=== PATIENT | male | born 1950 | race Caucasian/White ===

== ENCOUNTER 2020-04-30 16:33 | Emergency (ER) | payer MEDICARE, OTHER ==
[~2020-04-30] VITALS: Ht 182.9 cm; Wt 87.5 kg
--- OUTSIDE RECORDS SUMMARY | ~2020-04-30 | XMS | Encounter Summary ---
Demographics + + + | Address | [address] | | | [place] [address] | + + + | Home Phone | | + + + | Preferred Language | Unknown | + + + | Marital Status | | + + + | Tenriism Affiliation | 1013 | + + + | Race | Unknown | + + + | Ethnic Group | Unknown | + + + Author + + + | Author | [facility] | | | and [place] | + + + | Organization | [facility] | | | and [place] | + + + | Address | Unknown | + + + | Phone | Unavailable | + + + Support + + +---------+ + | Name | Relationship | Address | Phone | + + +---------+ + | Jaycee Roman | ECON | Unknown | | + + +---------+ + Care Team Providers + +------+ + | Care Plant And Instrument Engineer Name | Role | Phone | + +------+ + PCP | Unavailable | + +------+ + Encounter Details +--------+ + + + + | Date | Type | Department | Care Team | Description | +--------+ + + + + | 05/05/ | Abstract | [facility] | Juan Paris | | | 2014 | | NEPHROLOGY [address] | M, DO [address] | | | | | [address] | [address] | | | | | [place] | [place] [id number] | | | | | [address] | [phone] | | | | | [phone] | | | +--------+ + + + + Social History + +-------+ +--------+------+ | Tobacco Use | Types | Packs/Day | Years | Date | | | | | Used | | + +-------+ +--------+------+ | Current Every Day | | 0.2 | 41 | | | Smoker | | | | | + +-------+ +--------+------+ + +---+---+---+ | Smokeless Tobacco: | | | | | Current User | | | | + +---+---+---+ + + | Comments: 1-3 daily, use to smoke 1ppd | + + + + +---------+ + | Alcohol Use | Drinks/Week | oz/Week | Comments | + + +---------+ + | Not Asked | | | | + + +---------+ + + + + | Sex Assigned at | Date Recorded | | | | + + + | Not on file | | + + + documented as of this encounter Plan of Treatment +--------+ + + + + | Date | Type | Specialty | Care Team | Description | +--------+ + + + + | 05/24/ | Off-Site | Nephrology | Juan Paris | | | 2019 | Visit | | DO Nisreen [address] | | | | | | [address] | | | | | | [place] [address] | | | | | | [phone] | | | | | | | | +--------+ + + + + | 07/23/ | Office | Pulmonology | Jt Roman | | | 2019 | Visit | | Tony Edwards MD [address] | | | | | [address] | | | | | | [place] [address] | | | | | | [phone] | | | | | | | | +--------+ + + + + documented as of this encounter Procedures + +--------+ + + + | Procedure Name | Priori | Date/Time | Associated Diagnosis | Comments | | | ty | | | | + +--------+ + + + | EXTERNAL LAB: BUN | Routin | 04/29/2015 | | Results for this | | | e | | | procedure are in the | | | | | | results section. | + +--------+ + + + | EXTERNAL LAB: | Routin | 04/29/2015 | | Results for this | | GLUCOSE | e | | | procedure are in the | | | | | | results section. | + +--------+ + + + | EXTERNAL LAB: ALT | Routin | 04/29/2015 | | Results for this | | | e | | | procedure are in the | | | | | | results section. | + +--------+ + + + | EXTERNAL LAB: AST | Routin | 04/29/2015 | | Results for this | | | e | | | procedure are in the | | | | | | results section. | + +--------+ + + + | EXTERNAL LAB: | Routin | 04/29/2015 | | Results for this | | ALKALINE PHOSPHATASE | e | | | procedure are in the | | | | | | results section. | + +--------+ + + + | EXTERNAL LAB: | Routin | 04/29/2015 | | Results for this | | BILIRUBIN, TOTAL | e | | | procedure are in the | | | | | | results section. | + +--------+ + + + | EXTERNAL LAB: | Routin | 04/29/2015 | | Results for this | | ALBUMIN | e | | | procedure are in the | | | | | | results section. | + +--------+ + + + | EXTERNAL LAB: | Routin | 04/29/2015 | | Results for this | | PROTEIN, TOTAL | e | | | procedure are in the | | | | | | results section. | + +--------+ + + + | EXTERNAL LAB: | Routin | 04/29/2015 | | Results for this | | PHOSPHORUS | e | | | procedure are in the | | | | | | results section. | + +--------+ + + + | EXTERNAL LAB: | Routin | 04/29/2015 | | Results for this | | CALCIUM | e | | | procedure are in the | | | | | | results section. | + +--------+ + + + | EXTERNAL LAB: CARBON | Routin | 04/29/2015 | | Results for this | | DIOXIDE | e | | | procedure are in the | | | | | | results section. | + +--------+ + + + | EXTERNAL LAB: | Routin | 04/29/2015 | | Results for this | | CHLORIDE | e | | | procedure are in the | | | | | | results section. | + +--------+ + + + | EXTERNAL LAB: | Routin | 04/29/2015 | | Results for this | | POTASSIUM | e | | | procedure are in the | | | | | | results section. | + +--------+ + + + | EXTERNAL LAB: SODIUM | Routin | 04/29/2015 | | Results for this | | | e | | | procedure are in the | | | | | | results section. | + +--------+ + + + | EXTERNAL LAB: | Routin | 04/29/2015 | | Results for this | | PROTEIN, URINE, 24HR | e | | | procedure are in the | | | | | | results section. | + +--------+ + + + | EXTERNAL LAB: CBC | Routin | 04/29/2015 | | Results for this | | | e | | | procedure are in the | | | | | | results section. | + +--------+ + + + | EXTERNAL LAB: | Routin | 04/29/2015 | | Results for this | | TRIGLYCERIDES | e | | | procedure are in the | | | | | | results section. | + +--------+ + + + | EXTERNAL LAB: | Routin | 04/29/2015 | | Results for this | | CHOLESTEROL, HDL | e | | | procedure are in the | | | | | | results section. | + +--------+ + + + | EXTERNAL LAB: | Routin | 04/29/2015 | | Results for this | | CHOLESTEROL, TOTAL | e | | | procedure are in the | | | | | | results section. | + +--------+ + + + | EXTERNAL LAB: | Routin | 04/29/2015 | | Results for this | | CHOLESTEROL, LDL | e | | | procedure are in the | | | | | | results section. | + +--------+ + + + | EXTERNAL LAB: EGFR | Routin | 04/29/2015 | | Results for this | | | e | | | procedure are in the | | | | | | results section. | + +--------+ + + + | EXTERNAL LAB: | Routin | 04/29/2015 | | Results for this | | CREATININE | e | | | procedure are in the | | | | | | results section. | + +--------+ + + + documented in this encounter Results External Lab: BRENDA (04/29/2015) + +-------+ + + + | Component | Value | Ref Range | Performed | Pathologist | | | | | At | Signature | + +-------+ + + + | BUN, | 19 | 6 - 23 | EXTERNAL | | | External | | | LAB | | + +-------+ + + + + + | Resulting Agency Comment | + + | [facility] | + + + +---------+ + + | Performing | Address | City/State/Zipcode | Phone Number | | Organization | | | | + +---------+ + + | EXTERNAL LAB | | | | + +---------+ + + External Lab: Glucose (04/29/2015) + +---------+ + + + | Component | Value | Ref Range | Performed | Pathologist | | | | | At | Signature | + +---------+ + + + | Glucose, | 117 (A) | 70 - 100 | EXTERNAL | | | External | | | LAB | | + +---------+ + + + + + | Resulting Agency Comment | + + | [facility] | + + + +---------+ + + | Performing | Address | City/State/Zipcode | Phone Number | | Organization | | | | + +---------+ + + | EXTERNAL LAB | | | | + +---------+ + + External Lab: ALT (04/29/2015) + +-------+ + + + | Component | Value | Ref Range | Performed | Pathologist | | | | | At | Signature | + +-------+ + + + | ALT, | 12 | 7 - 52 | EXTERNAL | | | External | | | LAB | | + +-------+ + + + + + | Resulting Agency Comment | + + | [facility] | + + + +---------+ + + | Performing | Address | City/State/Zipcode | Phone Number | | Organization | | | | + +---------+ + + | EXTERNAL LAB | | | | + +---------+ + + External Lab: AST (04/29/2015) + +--------+ + + + | Component | Value | Ref Range | Performed | Pathologist | | | | | At | Signature | + +--------+ + + + | KRIS, | 11 (A) | 13 - 39 | EXTERNAL | | | External | | | LAB | | + +--------+ + + + + + | Resulting Agency Comment | + + | [facility] | + + + +---------+ + + | Performing | Address | City/State/Zipcode | Phone Number | | Organization | | | | + +---------+ + + | EXTERNAL LAB | | | | + +---------+ + + External Lab: Alkaline Phosphatase (04/29/2015) + +-------+ + + + | Component | Value | Ref Range | Performed | Pathologist | | | | | At | Signature | + +-------+ + + + | ALP, | 81 | 30 - 128 | EXTERNAL | | | External | | | LAB | | + +-------+ + + + + + | Resulting Agency Comment | + + | [facility] | + + + +---------+ + + | Performing | Address | City/State/Zipcode | Phone Number | | Organization | | | | + +---------+ + + | EXTERNAL LAB | | | | + +---------+ + + External Lab: Bilirubin, Total (04/29/2015) + +-------+ + + + | Component | Value | Ref Range | Performed | Pathologist | | | | | At | Signature | + +-------+ + + + | Bilirubin, | 0.7 | 0 - 1.2 | EXTERNAL | | | Total, | | | LAB | | | External | | | | | + +-------+ + + + + + | Resulting Agency Comment | + + | [facility] | + + + +---------+ + + | Performing | Address | City/State/Zipcode | Phone Number | | Organization | | | | + +---------+ + + | EXTERNAL LAB | | | | + +---------+ + + External Lab: Albumin (04/29/2015) + +-------+ + + + | Component | Value | Ref Range | Performed | Pathologist | | | | | At | Signature | + +-------+ + + + | Albumin, | 3.7 | 3.5 - 5 | EXTERNAL | | | External | | | LAB | | + +-------+ + + + + + | Resulting Agency Comment | + + | [facility] | + + + +---------+ + + | Performing | Address | City/State/Zipcode | Phone Number | | Organization | | | | + +---------+ + + | EXTERNAL LAB | | | | + +---------+ + + External Lab: Protein, Total (04/29/2015) + +---------+ + + + | Component | Value | Ref Range | Performed | Pathologist | | | | | At | Signature | + +---------+ + + + | Protein, | 5.5 (A) | 6 - 8 | EXTERNAL | | | Total, | | | LAB | | | External | | | | | + +---------+ + + + + + | Resulting Agency Comment | + + | [facility] | + + + +---------+ + + | Performing | Address | City/State/Zipcode | Phone Number | | Organization | | | | + +---------+ + + | EXTERNAL LAB | | | | + +---------+ + + External Lab: Phosphorus (04/29/2015) + +-------+ + + + | Component | Value | Ref Range | Performed | Pathologist | | | | | At | Signature | + +-------+ + + + | Phosphorus, | 3.6 | 2.5 - 5 | EXTERNAL | | | External | | | LAB | | + +-------+ + + + + + | Resulting Agency Comment | + + | [facility] | + + + +---------+ + + | Performing | Address | City/State/Zipcode | Phone Number | | Organization | | | | + +---------+ + + | EXTERNAL LAB | | | | + +---------+ + + External Lab: Calcium (04/29/2015) + +-------+ + + + | Component | Value | Ref Range | Performed | Pathologist | | | | | At | Signature | + +-------+ + + + | Calcium, | 9.5 | 8.4 - 10.2 | EXTERNAL | | | External | | | LAB | | + +-------+ + + + + + | Resulting Agency Comment | + + | [facility] | + + + +---------+ + + | Performing | Address | City/State/Zipcode | Phone Number | | Organization | | | | + +---------+ + + | EXTERNAL LAB | | | | + +---------+ + + External Lab: Carbon Dioxide (04/29/2015) + +-------+ + + + | Component | Value | Ref Range | Performed | Pathologist | | | | | At | Signature | + +-------+ + + + | Carbon | 27 | 19 - 31 | EXTERNAL | | | Dioxide, | | | LAB | | | External | | | | | + +-------+ + + + + + | Resulting Agency Comment | + + | [facility] | + + + +---------+ + + | Performing | Address | City/State/Zipcode | Phone Number | | Organization | | | | + +---------+ + + | EXTERNAL LAB | | | | + +---------+ + + External Lab: Chloride (04/29/2015) + +-------+ + + + | Component | Value | Ref Range | Performed | Pathologist | | | | | At | Signature | + +-------+ + + + | Chloride, | 107 | 95 - 112 | EXTERNAL | | | External | | | LAB | | + +-------+ + + + + + | Resulting Agency Comment | + + | [facility] | + + + +---------+ + + | Performing | Address | City/State/Zipcode | Phone Number | | Organization | | | | + +---------+ + + | EXTERNAL LAB | | | | + +---------+ + + External Lab: Potassium (04/29/2015) + +-------+ + + + | Component | Value | Ref Range | Performed | Pathologist | | | | | At | Signature | + +-------+ + + + | Potassium, | 4.2 | 3.6 - 5.1 | EXTERNAL | | | External | | | LAB | | + +-------+ + + + + + | Resulting Agency Comment | + + | [facility] | + + + +---------+ + + | Performing | Address | City/State/Zipcode | Phone Number | | Organization | | | | + +---------+ + + | EXTERNAL LAB | | | | + +---------+ + + External Lab: Sodium (04/29/2015) + +---------+ + + + | Component | Value | Ref Range | Performed | Pathologist | | | | | At | Signature | + +---------+ + + + | Sodium, | 144 (A) | 132 - 143 | EXTERNAL | | | External | | | LAB | | + +---------+ + + + + + | Resulting Agency Comment | + + | [facility] | + + + +---------+ + + | Performing | Address | City/State/Zipcode | Phone Number | | Organization | | | | + +---------+ + + | EXTERNAL LAB | | | | + +---------+ + + External Lab: Protein, Urine, 24Hr (04/29/2015) + + + + + + | Component | Value | Ref Range | Performed | Pathologist | | | | | At | Signature | + + + + + + | Protein, | 2,130 (A) | 150 | EXTERNAL | | | Urine 24Hr, | | | LAB | | | External | | | | | + + + + + + + + | Specimen | + + | Urine specimen | | (specimen) | + + + + | Resulting Agency Comment | + + | [facility] | + + + +---------+ + + | Performing | Address | City/State/Zipcode | Phone Number | | Organization | | | | + +---------+ + + | EXTERNAL LAB | | | | + +---------+ + + External Lab: CBC (04/29/2015) + + + + + + | Component | Value | Ref Range | Performed | Pathologist | | | | | At | Signature | + + + + + + | WBC, | 10.7 | 4.5 - 11 | EXTERNAL | | | External | | | LAB | | + + + + + + | HGB, | 15.6 | 13.5 - 18 | EXTERNAL | | | External | | | LAB | | + + + + + + | HCT, | 49.1 | 41 - 50 | EXTERNAL | | | External | | | LAB | | + + + + + + | PLT, | 208 | 140 - 440 | EXTERNAL | | | External | | | LAB | | + + + + + + | Neutrophils | 74 | 39 - 80 | EXTERNAL | | | %, | | | LAB | | | External | | | | | + + + + + + | Lymphocytes | 13.1 (A) | 24 - 44 | EXTERNAL | | | %, | | | LAB | | | External | | | | | + + + + + + | Monocytes | 8.4 | 0 - 12 | EXTERNAL | | | %, External | | | LAB | | + + + + + + | Eosinophils | 3.5 | 0 - 6 | EXTERNAL | | | %, | | | LAB | | | External | | | | | + + + + + + | RBC, | 5.15 | 4.3 - 5.7 | EXTERNAL | | | External | | | LAB | | + + + + + + | MCV, | 95 | 81 - 99 | EXTERNAL | | | External | | | LAB | | + + + + + + | RDW, | 14.4 | 10.5 - 15 | EXTERNAL | | | External | | | LAB | | + + + + + + + + | Resulting Agency Comment | + + | [facility] | + + + +---------+ + + | Performing | Address | City/State/Zipcode | Phone Number | | Organization | | | | + +---------+ + + | EXTERNAL LAB | | | | + +---------+ + + External Lab: Triglycerides (04/29/2015) + +-------+ + + + | Component | Value | Ref Range | Performed | Pathologist | | | | | At | Signature | + +-------+ + + + | Triglycerid | 63 | 30 - 150 | EXTERNAL | | | es, | | | LAB | | | External | | | | | + +-------+ + + + + + | Specimen | + + | Blood specimen | | (specimen) | + + + + | Resulting Agency Comment | + + | [facility] | + + + +---------+ + + | Performing | Address | City/State/Zipcode | Phone Number | | Organization | | | | + +---------+ + + | EXTERNAL LAB | | | | + +---------+ + + External Lab: Cholesterol, HDL (04/29/2015) + +-------+ + + + | Component | Value | Ref Range | Performed | Pathologist | | | | | At | Signature | + +-------+ + + + | HDL | 66.3 | 40 mg/dl | EXTERNAL | | | Cholesterol | | | LAB | | | , External | | | | | + +-------+ + + + + + | Specimen | + + | Blood specimen | | (specimen) | + + + + | Resulting Agency Comment | + + | [facility] | + + + +---------+ + + | Performing | Address | City/State/Zipcode | Phone Number | | Organization | | | | + +---------+ + + | EXTERNAL LAB | | | | + +---------+ + + External Lab: Cholesterol, Total (04/29/2015) + +-------+ + + + | Component | Value | Ref Range | Performed | Pathologist | | | | | At | Signature | + +-------+ + + + | Cholesterol | 164 | 200 mg/dl | EXTERNAL | | | , Total, | | | LAB | | | External | | | | | + +-------+ + + + + + | Specimen | + + | Blood specimen | | (specimen) | + + + + | Resulting Agency Comment | + + | [facility] | + + + +---------+ + + | Performing | Address | City/State/Zipcode | Phone Number | | Organization | | | | + +---------+ + + | EXTERNAL LAB | | | | + +---------+ + + External Lab: Cholesterol, LDL (04/29/2015) + +-------+ + + + | Component | Value | Ref Range | Performed | Pathologist | | | | | At | Signature | + +-------+ + + + | LDL | 85 | 100 | EXTERNAL | | | Cholesterol | | | LAB | | | , Direct, | | | | | | External | | | | | + +-------+ + + + + + | Specimen | + + | Blood specimen | | (specimen) | + + + + | Resulting Agency Comment | + + | [facility] | + + + +---------+ + + | Performing | Address | City/State/Zipcode | Phone Number | | Organization | | | | + +---------+ + + | EXTERNAL LAB | | | | + +---------+ + + External Lab: eGFR (04/29/2015) + +-------+ + + + | Component | Value | Ref Range | Performed | Pathologist | | | | | At | Signature | + +-------+ + + + | eGFR, | 82 | | EXTERNAL | | | External | | | LAB | | + +-------+ + + + + + | Specimen | + + | Blood specimen | | (specimen) | + + + + | Resulting Agency Comment | + + | [facility] | + + + +---------+ + + | Performing | Address | City/State/Zipcode | Phone Number | | Organization | | | | + +---------+ + + | EXTERNAL LAB | | | | + +---------+ + + External Lab: Creatinine (04/29/2015) + +-------+ + + + | Component | Value | Ref Range | Performed | Pathologist | | | | | At | Signature | + +-------+ + + + | Creatinine, | 0.93 | 0.7 - 1.25 | EXTERNAL | | | External | | | LAB | | + +-------+ + + + + + | Specimen | + + | Blood specimen | | (specimen) | + + + + | Resulting Agency Comment | + + | [facility] | + + + +---------+ + + | Performing | Address | City/State/Zipcode | Phone Number | | Organization | | | | + +---------+ + + | EXTERNAL LAB | | | | + +---------+ + + documented in this encounter Visit Diagnoses Not on filedocumented in this encounter"
--- OUTSIDE RECORDS SUMMARY | ~2020-04-30 | XMS | Encounter Summary ---
Demographics + + + | Address | [address] | | | [place] [address] | + + + | Home Phone | | + + + | Preferred Language | Unknown | + + + | Marital Status | | + + + | Rastafarian Affiliation | 1013 | + + + | Race | Unknown | + + + | Ethnic Group | Unknown | + + + Author + + + | Author | [facility] | | | and [place] | + + + | Organization | [facility] | | | and [...] Team Providers + +------+ + | Care Data Processing Clerk Name | Role | Phone | + +------+ + PCP | Unavailable | + +------+ + Reason for Visit Evaluate & Treat (Routine) +--------+--------+ + + + + | Status | Reason | Specialty | Diagnoses / | Referred By | Referred To | | | | | Procedures | Contact | Contact | +--------+--------+ + + + + | Closed | | Nephrology | Diagnoses | Jose, | Raina, | | | | | Bishop | Heron | Juan Nielson DO | | | | | glomerulonep | MD Rico | [address] | | | | | hritis | [address] | | | | | Hypertensive | [place] | [address] | | | | | chronic | [address] | [place], | | | | | kidney | Noel | [place] [address] | | | | | disease with | [place] | Phone: | | | | | stage 1 | [address] | [phone] | | | | | through | Phone: | Fax: | | | | | stage 4 | [phone] | [phone] | | | | | chronic | Fax: | | | | | | kidney | [phone] | | | | | | disease, or | | | | | | | unspecified | | | | | | | chronic | | | | | | | kidney | | | | | | | disease | | | | | | | Procedures | | | | | | | AL OFFICE | | | | | | | OUTPATIENT | | | | | | | VISIT 25 | | | | | | | MINUTES | | | +--------+--------+ + + + + Encounter Details +--------+ + + + + | Date | Type | Department | Care Team | Description | +--------+ + + + + | 11/26/ | Off-Site | [facility] | Juan Paris | COPD, severe (HCC) | | 2018 | Visit | NEPHROLOGY [address] | M, DO [address] | (Primary Dx); | | | | [address] | [address] [place] | 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[place], [place]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; | | | | [address] | [phone] | Unspecified | | | | [phone] | | hypertensive kidney | | | | | | disease with chronic | | | | | | kidney disease | | | | | | stage I through | | | | | | stage IV, or | | | | | | unspecified(403.90); | | | | | | Mixed | | | | | | hyperlipidemia | +--------+ + + + + Social History + +-------+ +--------+ + | Tobacco Use | Types | Packs/Day | Years | Date | | | | | Used | | + +-------+ +--------+ + | Former Smoker | | 0.2 | 41 | Quit: 09/29/2015 | + +-------+ +--------+ + + +------+---+ + | Smokeless Tobacco: | Chew | | Quit: | | Former User | | | 12/12/19 | | | | | 16 | + +------+---+ + + + +---------+ + | Alcohol Use | Drinks/Week | oz/Week | Comments | + + +---------+ + | No | 0 Standard drinks | 0.0 | | | | or equivalent | | | + + +---------+ + + + + | Sex Assigned at | Date Recorded | | | | + + + | Not on file | | + + + documented as of this encounter Last Filed Vital Signs + + + + + | Vital Sign | Reading | Time Taken | Comments | + + + + + | Blood Pressure | 124/70 | 11/26/2017 3:08 PM | | | | | PST | | + + + + + | Pulse | - | - | | + + + + + | Temperature | 35.8 C (96.4 F) | 11/26/2017 3:08 PM | | | | | PST | | + + + + + | Respiratory Rate | 18 | 11/26/2017 3:08 PM | | | | | PST | | + + + + + | Oxygen Saturation | - | - | | + + + + + | Inhaled Oxygen | - | - | | | Concentration | | | | + + + + + | Weight | 92.1 kg (203 lb) | 11/26/2017 3:08 PM | | | | | PST | | + + + + + | Height | - | - | | + + + + + | Body Mass Index | 24.07 | 11/09/2017 1:06 PM | | | | | PST | | + + + + + documented in this encounter Progress Notes Juan Paris, - 11/26/2017 3:00 PM PST Subjective: NEPHROLOGY Patient ID: Sierra Roman is a 67 y.o. male. 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 He initially was treated in 2004 with 6 mo. of predn isone, then, 12 mo. of mycophenolate + 12 weeks prednisone. He was treated with 3 doses of Rituximab 1g, the last on 09/27/[address] Suki Pope at the [facility], at the [facility]. (He had his initial dose of Rituximab 1g, IVPB on 03/14/16). This has resulted in improveme nt in peripheral edema and reduction in proteinuria, from 2.03 g/day on 05/15/2016 => to 560 mg/day, 01/05/2017 => 91 mg/day currently. He states that he feels well. His main difficulty has been recent intermittent exacerbations of COPD and dyspnea this winter with URI's, and bronchitis. Again, previous CT scanning of the chest, abdomen, pelvis were negative for any neoplasm or suspicious mass. He also has HTN, COPD, hyperlipidemia. He denies hematuria, flank pain, NSAID use, or anor exia. Outpatient Prescriptions Marked as Taking for the 11/26/17 encounter (Off-Site Visit) with Nisreen Paris DO Medication Sig Dispense Refill albuterol (PROVENTIL HFA) 90 mcg/puff inhaler Inhale 2 puffs into the lungs every 4 lesley rs as needed for Shortness of Breath. albuterol 2.5 mg/3 mL nebulizer solution Take 3 mLs by nebulization every 4 hours as ne eded for Shortness of Breath. 360 vial 11 amLODIPine (NORVASC) 10 MG tablet Take 10 mg by mouth Daily. Apple Cider Vinegar 500 MG TABS Take 1 tablet by mouth Daily. ASMANEX 60 METERED DOSES 220 MCG/INH inhaler INHALE 1 DOSE BY MOUTH TWICE DAILY 1 Inhal er 5 aspirin 81 MG EC tablet Take 81 mg by mouth Daily. calcium, as carbonate, (CALTRATE) 600 mg tablet Take 600 mg by mouth daily (with breakf ast). furosemide (LASIX) 40 mg tablet Take 1 tablet by mouth Daily. 90 tablet 4 Green Tea, Camillia sinensis, 315 MG CAPS Take 1 capsule by mouth Daily. guaiFENesin (MUCINEX) 600 mg 12 hr tablet Take 600 mg by mouth 2 times daily. losartan (COZAAR) 100 MG tablet Take 100 mg by mouth nightly. metoprolol succinate (TOPROL-XL) 100 mg ER tablet Take 50 mg in the morning and 100 mg at night Multiple Vitamins-Minerals (ALIVE MENS ENERGY PO) Take 1 tablet by mouth Daily. Multiple Vitamins-Minerals (B COMPLEX PLUS VITAMIN C PO) Take 1 tablet by mouth Daily. omeprazole (PRILOSEC) 20 mg capsule Take one capsule by mouth once daily on an empty st omach simvastatin (ZOCOR) 20 mg tablet Take 1 tablet by mouth Daily. 90 tablet 4 umeclidinium-vilanterol (ANORO ELLIPTA) 62.5-25 mcg/puff inhaler Inhale 1 puff into the lungs Daily. Allergies Allergen Reactions Amoxicillin Rash Objective: BP 124/70 | Temp 35.8 C (96.4 F) | Resp 18 | Wt 92.1 kg (203 lb) | BMI 27.53 kg/m Physical Exam Heart: Regular rate and rhythm with no S3, S4, murmur or rub. Lungs: CTA with decreased breath sounds bilaterally, no rales, no wheezes. Abdomen: Soft, flat, nontender, normoactive bowel sounds. Extremities: 1+ edema, no clubbing, cyanosis. Lab Results Component Value Date NAEX 142 11/22/2017 KEX 4 11/22/2017 CLEX 105 11/22/2017 CO2EX 105 11/22/2017 BUNEX 19 11/22/2017 CREEX 1 11/22/2017 EGFREX 74 11/22/2017 GLUEX 162 (A) 11/22/2017 PHOSEX 2.6 11/22/2017 PTHEX 33.99 11/22/2017 LUT3QLD 6.1 12/22/2015 Lab Results Component Value Date WBCEX 10.1 11/22/2017 HGBEX 14.4 11/22/2017 HCTEX 43.7 11/22/2017 PLTEX 219 11/22/2017 Lab Results Component Value Date CRCLEARANCE 66.0 (A) 11/22/2017 PROTEX 91 11/22/2017 Assessment: 1. 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 2. Hypertension-- excellent control on losartan, amlodipine. 3. Hyperlipidemia--on statin Rx. 4. Steroid-induced Type II DM-- in remission. 5. COPD-- temporally better today. Plan: 1. I reviewed with Sierra his lab, EGFR, Scr and proteinuria.. He appears to have had a jazz e response to date, to his IV rituximab and ARB therapy. 2. I encouraged that he appears to be doing a good job with his BP control and low salt di et. 3. Will plan to see him back in 6 months at the [facility], [facility]. He will gomez ve a CBC, CMP, PO4, iPTH, lipid profile, and 24 Hour urine, one week prior to that. : Rico Garcia M.D., Noel Pope MD, [facility], Nephrology Section, [facility], [place] , [place] documented in this encounter Plan of Treatment +--------+ + + + + | Date | Type | Specialty | Care Team | Description | +--------+ + + + + | 05/24/ | Off-Site | Nephrology | Juan Paris | | | 2019 | Visit | | M, DO [address] | | | | | | [address] | | | | | | [place] [address] | | | | | | [phone] | | | | | | | | +--------+ + + + + | 07/23/ | Office | Pulmonology | Jt Roman | | | 2019 | Visit | | Tony Edwards MD [address] | | | | | [address] | | | | | | [place] [address] | | | | | | [phone] | | | | | | | | +--------+ + + + + documented as of this encounter Procedures + +--------+ + + + | Procedure Name | Priori | Date/Time | Associated Diagnosis | Comments | | | ty | | | | + +--------+ + + + | LABS - EXTERNAL SCAN | | 11/22/2017 | Membranous | Results for this | | | | 12:00 AM | glomerulonephritis | procedure are in the | | | | PST | Unspecified | results section. | | | | | hypertensive kidney | | | | | | disease with chronic | | | | | | kidney disease | | | | | | stage I through | | | | | | stage IV, or | | | | | | unspecified(403.90) | | | | | | COPD, severe (HCC) | | | | | | Mixed | | | | | | hyperlipidemia | | + +--------+ + + + documented in this encounter Results LABS - EXTERNAL SCAN (11/22/2017 12:00 AM PST) + + + | Narrative | Performed At | + + + | Ordered by an | | | unspecified provider. 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
--- OUTSIDE RECORDS SUMMARY | ~2020-04-30 | XMS | Encounter Summary ---
Demographics + + + | Address | [address] | | | [place] [address] | + + + | Home Phone | | + + + | Preferred Language | Unknown | + + + | Marital Status | | + + + | Islam Affiliation | 1013 | + + + | Race | Unknown | + + + | Ethnic Group | Unknown | + + + Author + + + | Author | [facility] | | | and [place] | + + + | Organization | [facility] | | | [...] Team Providers + +------+ + | Care Nutritionist Public Health Name | Role | Phone | + +------+ + PCP | Unavailable | + +------+ + Encounter Details +--------+ + + + + | Date | Type | Department | Care Team | Description | +--------+ + + + + | 03/14/ | Hospital | [facility] | Juan Paris | | | 2010 | Encounter | [facility] | M, DO [address] | | | | | [address] [place] | [address] | | | | | [place] | [place] [address] | | | | | [address] | [phone] | | | | | [phone] | | | +--------+ + + + + Social History + +-------+ +--------+------+ | Tobacco Use | Types | Packs/Day | Years | Date | | | | | Used | | + +-------+ +--------+------+ | Never Assessed | | | | | + +-------+ +--------+------+ + + + | Sex Assigned at | Date Recorded | | | | + + + | Not on file | | + + + documented as of this encounter Medications at Time of Discharge + + + +---------+ + + | Medication | Sig | Dispensed | Refills | Start | End Date | | | | | | Date | | + + + +---------+ + + | glyBURIDE | Take 2.5 mg by mouth | | 0 | 03/14/20 | | | (DIABETA) 2.5 mg | Daily. | | | 11 | 3 | | tablet | | | | | | + + + +---------+ + + documented as of this encounter Plan of Treatment +--------+ + + + + | Date | Type | Specialty | Care Team | Description | +--------+ + + + + | 05/24/ | Off-Site | Nephrology | Juan Paris | | | 2019 | Visit | | M DO [address] | | | | | | [address] [place] | | | | | | [place] [address] | | | | | | [phone] | | | | | | | | +--------+ + + + + | 07/23/ | Office | Pulmonology | Jt Roman | | | 2019 | Visit | | Tony Edwards MD [address] | | | [address] | | | | | | [place] [address] | | | | | | [phone] | | | | | | | | +--------+ + + + + documented as of this encounter Procedures + +--------+ + + + | Procedure Name | Priori | Date/Time | Associated Diagnosis | Comments | | | ty | | | | + +--------+ + + + | NELI OLIVA, | Routin | 03/14/2011 | | Results for this | | REFLEX | e | 10:56 AM | | procedure are in the | | | | PDT | | results section. | + +--------+ + + + | URINALYSIS, REFLEX | Routin | 03/14/2011 | | Results for this | | MICROSCOPIC AND/OR | e | 10:56 AM | | procedure are in the | | CULTURE | | PDT | | results section. | + +--------+ + + + documented in this encounter Results UA, Microscopic, Reflex (03/14/2011 10:56 AM PDT) + + + + + + | Component | Value | Ref Range | Performed | Pathologist | | | | | At | Signature | + + + + + + | White Blood | NONE | 0 - 1 /hpf | [facility] | | | Cells, | | | [facility] | | | Urine | | | MEDICAL | | | | | | CENTER - | | | | | | LABORATORY | | + + + + + + | Red Blood | 5-10 | 0 - 4 /hpf | [facility] | | | Cells, | | | [facility] | | | Urine | | | MEDICAL | | | | | | CENTER - | | | | | | LABORATORY | | + + + + + + | Squamous | RARE | FEW /hps | [facility] | | | Epithelial | | | [facility] | | | Cells, | | | MEDICAL | | | Urine | | | CENTER - | | | | | | LABORATORY | | + + + + + + | Bacteria, | NONE | NONE /hpf | [facility] | | | Urine | | | [facility] | | | | | | MEDICAL | | | | | | CENTER - | | | | | | LABORATORY | | + + + + + + | Culture | YESComment: REFLEXED TO | | [facility] | | | Indicated | URINE CULTURE. | | [facility] | | | | | | [facility]ICAL | | | | | | CENTER - | | | | | | LABORATORY | | + + + + + + + + | Specimen | + + | | + + + + + + + | Performing | Address | City/State/Zipcode | Phone Number | | Organization | | | | + + + + + | [facility] | [address] | [place], [place] | [phone] | | [facility] | | [address] | | | - LABORATORY | | | | + + + + + | [facility] | [address] | [place] | | | [facility] | | [id number] | | | - LABORATORY | | | | + + + + + Urinalysis, Reflex Microscopic and/or Culture (03/14/2011 10:56 AM PDT) + + + + + + | Component | Value | Ref Range | Performed | Pathologist | | | | | At | Signature | + + + + + + | COLLECTION | VOID | | [facility] | | | [facility] | | | [facility] | | | | | | MEDICAL | | | | | | CENTER - | | | | | | LABORATORY | | + + + + + + | Color, | LIGHT YELLOW | | [facility] | | | Urine | | | [facility] | | | | | | MEDICAL | | | | | | CENTER - | | | | | | LABORATORY | | + + + + + + | Clarity, | CLEAR | | [facility] | | | Urine | | | [facility] | | | | | | MEDICAL | | | | | | CENTER - | | | | | | LABORATORY | | + + + + + + | Glucose, | NEGATIVE | NEGATIVE mg/dL | [facility] | | | Urine | | | [facility] | | | | | | MEDICAL | | | | | | CENTER - | | | | | | LABORATORY | | + + + + + + | Bilirubin, | NEGATIVE | NEGATIVE | [facility] | | | Urine | | | [facility] | | | | | | MEDICAL | | | | | | CENTER - | | | | | | LABORATORY | | + + + + + + | Ketones, | NEGATIVE | NEGATIVE | [facility] | | | Urine | | | [facility] | | | | | | MEDICAL | | | | | | CENTER - | | | | | | LABORATORY | | + + + + + + | Specific | 1.020 | 1.001 - 1.030 | [facility] | | | [address] | | | [facility] | | | Urine | | | MEDICAL | | | | | | CENTER - | | | | | | LABORATORY | | + + + + + + | Blood, | MOD | NEGATIVE | [facility] | | | Urine | | | [facility] | | | | | | MEDICAL | | | | | | CENTER - | | | | | | LABORATORY | | + + + + + + | pH, Urine | 7.0 | 5.0 - 8.0 | [facility] | | | | | | [facility] | | | | | | MEDICAL | | | | | | CENTER - | | | | | | LABORATORY | | + + + + + + | Protein, | 100 | NEGATIVE mg/dL | [facility] | | | Urine | | | [facility] | | | | | | MEDICAL | | | | | | CENTER - | | | | | | LABORATORY | | + + + + + + | Urobilinoge | NORMAL | NORMAL EU/dL | [facility] | | | n, Urine | | | [facility] | | | | | | MEDICAL | | | | | | CENTER - | | | | | | LABORATORY | | + + + + + + | Nitrite, | NEGATIVE | NEGATIVE | [facility] | | | Urine | | | [facility] | | | | | | MEDICAL | | | | | | CENTER - | | | | | | LABORATORY | | + + + + + + | Leukocyte | NEGATIVE | NEGATIVE | [facility] | | | Esterase, | | | [facility] | | | Urine | | | MEDICAL | | | | | | CENTER - | | | | | | LABORATORY | | + + + + + + | MICROSCOPIC | YES | | [facility] | | | ? | | | [facility] | | | | | | MEDICAL | | | | | | CENTER - | | | | | | LABORATORY | | + + + + + + + + | Specimen | + + | | + + + + + + + | Performing | Address | City/State/Zipcode | Phone Number | | Organization | | | | + + + + + | [facility] | [address] | [place], [place] | [phone] | | [facility] | | [address] | | | - LABORATORY | | | | + + + + + | [facility] | [address] | [place], [place] | | | [facility] | | [facility] | | | - LABORATORY | | | | + + + + + documented in this encounter Visit Diagnoses Not on filedocumented in this encounter"
--- OUTSIDE RECORDS SUMMARY | ~2020-04-30 | XMS | Encounter Summary ---
Demographics + + + | Address | [address] | | | [place] [address] | + + + | Home Phone | | + + + | Preferred Language | Unknown | + + + | Marital Status | | + + + | Methodist Affiliation | 1013 | + + + | Race | Unknown | + + + | Ethnic Group | Unknown | + + + Author + + + | Author | [facility] | | | and [place] | + + + | Organization | [facility] | | | and [...] Team Providers + +------+ + | Care Medical Apparatus Model Maker Name | Role | Phone | + +------+ + | Meme Burgos MD | PCP | | + +------+ + Reason for Visit + + + | Reason | Comments | + + + | Follow-up | | + + + | COPD | | + + + Encounter Details +--------+---------+ + + + | Date | Type | Department | Care Team | Description | +--------+---------+ + + + | 07/18/ | Office | [facility] | Jt Roman | Centrilobular | | 2019 | Visit | PULMONOLOGY [address] | Tony Edwards MD [address] | emphysema (HCC) | | | | [address] | [address] | (Primary Dx); | | | | [place], [place] | [place] [address] | Moderate persistent | | | | [address] | [phone] | asthma without | | | | [phone] | | complication; | | | | | | Nocturnal hypoxemia | +--------+---------+ + + + Social History + +-------+ +--------+ + | Tobacco Use | Types | Packs/Day | Years | Date | | | | | Used | | + +-------+ +--------+ + | Former Smoker | | 1 | 41 | Quit: 09/29/2015 | + +-------+ +--------+ + + +------+---+ + | Smokeless Tobacco: | Chew | | Quit: | | Former User | | | 12/12/19 | | | | | 17 | + +------+---+ + + + | Comments: Current chew | + + + + +---------+ + | Alcohol Use | Drinks/Week | oz/Week | Comments | + + +---------+ + | No | 0 Standard drinks | 0.0 | Alcoholic | | | or equivalent | | Drinks/day: occ | + + +---------+ + + + [...] + + + | Blood Pressure | 105/55 | 07/18/2019 10:14 AM | | | | | PDT | | + + + + + | Pulse | 69 | 07/18/2019 10:14 AM | | | | | PDT | | + + + + + | Temperature | 37.6 C (99.7 F) | 07/18/2019 10:14 AM | | | | | PDT | | + + + + + | Respiratory Rate | - | - | | + + + + + | Oxygen Saturation | 96% | 07/18/2019 10:14 AM | | | | | PDT | | + + + + + | Inhaled Oxygen | - | - | | | Concentration | | | | + + + + + | Weight | 87.5 kg (193 lb) | 07/18/2019 10:14 AM | | | | | PDT | | + + + + + | Height | 182.9 cm (6') | 07/18/2019 10:14 AM | | | | | PDT | | + + + + + | Body Mass Index | 26.18 | 07/18/2019 10:14 AM | | | | | PDT | | + + + + + documented in this encounter Progress Notes Jt Roman MD - 07/18/2019 10:30 AM PDTFormatting of this note might be dif ferent from the original. [facility] PULMON[facility] [address] [place] [id number] HISTORY: Chief Complaint: I have been asked to assist in the pulmonary evaluation of Sierra Guzman, 68 y.o. male, for COPD. History of Present Illness: Initial history: 03/07/17 Sierra Roman is a pleasant 66 year old gentleman referred to me for COPD. 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 He quit a month ago after a COPD exacerbation. He te lls me that he recently had a PFT at the [facility] in [place] about 6 months ago and was told h e had severe COPD. He has also had a CT scan of the chest in 01/2016 showing severe upper l obe predominant emphysema. It seems that he was having trouble with a COPD exacerbation du ring the winter and a month ago. Last month, he went to [facility] and was seen at the ED. He recalls being prescribed antibiotics, a course of prednisone for 5 days. He impro omer after 2 weeks. During his exacerbation, he was dyspneic with minimal exertion, with ch ronic productive cough, and audible wheezing every morning. In the past few weeks, he has significantly improved already. He is now taking regular walks x 2 blocks without dyspnea. He still gets dyspneic when lifting heavy objects though. Denies wheezing currently. Chronic cough has overall improved since quitting smoking and is very minimal if at all. Maria Guadalupe diamond is also on nocturnal O2 at 2LPM. Previously he was on this during the daytime also but maria guadalupe is sats recently. Regarding inhalers, he is on Asmanex and Anoro Ellipta. He has a davidson karan inhaler and uses this once a day on average. He has nebulized albuterol but has not re quired this in the past few weeks. 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 He was previously followed by Dr. Rivera in [place]. Interval history: Sierra is here for follow up for COPD with asthma overlap. He says that for the past few mon ths he has been more short of breath with activity with a bit more wheezing. He did have si nus surgery a few weeks back which helped. However he says that even lifting some objects m akes him dyspneic. He has been using his albuterol inh 5 times a day. He continues to use symbicort and spiriva. Review of Systems Constitutional: Negative. Negative for chills, fever and malaise/fatigue. HENT: Negative. Negative for congestion, sinus pain and sore throat. Eyes: Negative. Respiratory: Positive for cough, shortness of breath and wheezing. Negative for hemoptysis, sputum production and stridor. Cardiovascular: Negative. Negative for leg swelling. Gastrointestinal: Negative. Negative for abdominal pain, heartburn, nausea and vomiting. Genitourinary: Negative. Musculoskeletal: Negative. Skin: Negative. Neurological: Negative. Endo/Heme/Allergies: Negative. Negative for environmental allergies. All other systems reviewed and are negative. 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 albuterol 2.5 mg/3 mL nebulizer solution (Taking) Take 3 mLs by nebulization every 4 hour s as needed for Shortness of Breath. albuterol-ipratropium 2.5-0.5 mg/3 mL SOLN (Taking) Take 3 mLs by nebulization. Apple Cider Vinegar 500 MG TABS (Taking) Take 1 tablet by mouth Daily. APPLE CIDER VINEGAR PO (Taking) Take 450 mg by mouth. aspirin 81 MG EC tablet (Taking) Take 81 mg by mouth Daily. B Complex Vitamins (B COMPLEX PO) Take by mouth daily. budesonide-formoterol (SYMBICORT) 160-4.5 mcg/puff inhaler Inhale two inhalations by mouth twice daily Calcium Carb-Cholecalciferol 600-800 MG-UNIT TABS Take 2 tablets by mouth. calcium, as carbonate, (CALTRATE) 600 mg tablet Take 600 mg by mouth daily (with breakfast ). calcium-vitamin D 600 mg-200 units per tablet (Taking) Take 1 tablet by mouth daily. cephalexin (KEFLEX) 500 mg capsule Take 500 mg by mouth 4 (four) times daily. cholecalciferol (VITAMIN D-3) 400 units capsule Take by mouth daily. citalopram (CELEXA) 10 mg tablet (Taking) Take 10 mg by mouth daily. fish oil 1,000 mg capsule (Taking) Take 500 mg by mouth daily. furosemide (LASIX) 40 mg tablet Take 1 tablet by mouth Daily. Green Tea, Mara sinensis, (GREEN TEA EXTRACT PO) (Taking) Take 300 mg by mouth. Green Tea, Camillia sinensis, 315 MG CAPS Take 1 capsule by mouth Daily. guaiFENesin (MUCINEX PO) Take by mouth. guaiFENesin (MUCINEX) 600 mg 12 hr tablet (Taking) Take 600 mg by mouth 2 times daily. hydrOXYzine hydrochloride (ATARAX) 25 mg tablet Take 25 mg by mouth every 6 (six) hours as needed. FOR ANXIETY losartan (COZAAR) 100 MG tablet (Taking) Take 25 mg by mouth Daily. LOSARTAN POTASSIUM PO Take 100 mg by mouth daily. metFORMIN (GLUCOPHAGE) 500 mg tablet (Taking) Take 500 mg by mouth 4 (four) times daily. 2 pills AM 2 pills PM metoprolol succinate (TOPROL-XL) 100 mg ER tablet (Taking) Take 50 mg in the morning and 100 mg at night METOPROLOL SUCCINATE ER PO Take 50 mg by mouth nightly. montelukast (SINGULAIR) 10 mg tablet (Taking) Take 1 tablet by mouth nightly. Multiple Vitamins-Minerals (ALIVE MENS ENERGY PO) Take 1 tablet by mouth Daily. Multiple Vitamins-Minerals (B COMPLEX PLUS VITAMIN C PO) Take 1 tablet by mouth Daily. omeprazole (PRILOSEC) 20 mg capsule (Taking) Take one capsule by mouth once daily on an e mpty stomach promethazine-codeine (PHENERGAN WITH CODEINE) 6.25-10 mg/5 mL syrup Take 5 mLs by mouth. 1 -3 tsp q 3-8 hrs prn Indications: Cough simvastatin (ZOCOR) 20 mg tablet (Taking) Take 1 tablet by mouth Daily. tamsulosin (FLOMAX) 0.4 mg CAPS (Taking) Take 0.4 mg by mouth every evening. Take 2 tabs nightly tiotropium (SPIRIVA) 18 mcg inhalation capsule (Taking) Inhale 18 mcg into the lungs susanne y. Allergies Allergen Reactions Amoxicillin Rash, Hives and Shortness Of Breath Lisinopril Cough Social History Socioeconomic History Marital status: Spouse name: Not on file Number of children: Not on file Years of education: Not on file Highest education level: Not on file Social Needs Financial resource strain: Not on file Food insecurity - worry: Not on file Food insecurity - inability: Not on file Transportation needs - medical: Not on file Transportation needs - non-medical: Not on file Occupational History Not on file Tobacco Use Smoking status: Former Smoker Packs/day: 1.00 Years: 41.00 Pack years: 41.00 Last attempt to quit: 09/29/2015 Years since quittin.8 Smokeless tobacco: Former User Types: Chew Quit date: 12/11/2016 Tobacco comment: Current chew Substance and Sexual Activity Alcohol use: No Alcohol/week: 0.0 oz Comment: Alcoholic Drinks/day: occ Drug use: No Comment: Drug use: No Sexual activity: Not on file Other Topics Concern Not on file Social History Narrative Not on file Family History Problem Relation Age of Onset Lung cancer Father Colon cancer Father Hypertension Father Other (see comment) Father CAD Heart surgery Father Cancer Father COLON; LUNG/lung High blood pressure Father Heart disease Father Coronary artery disease Father Diabetes Mother Emphysema Mother Arthritis Mother Stroke Mother Other (see comment) Mother DJD Hypertension Mother High blood pressure Mother Rheum arthritis Mother Heart failure Mother Diabetes Brother PHYSICAL EXAMINATION: Vital Signs: Vitals: 07/18/19 1014 BP: 105/55 Pulse: 69 Temp: 37.6 C (99.7 F) TempSrc: Oral SpO2: 96% Weight: 87.5 kg (193 lb) Height: 1.829 m (6') Weight: Wt Readings from Last 2 Encounters: 07/18/19 87.5 kg (193 lb) 05/27/18 89.9 kg (198 lb 3.1 oz) .lastwt BMI: Body mass index is 26.18 kg/m. Physical Exam Constitutional: He is well-developed, well-nourished, and in no distress. No distress. HENT: Head: Normocephalic. Mouth/Throat: Oropharynx is clear and moist. No oropharyngeal exudate. Eyes: Conjunctivae are normal. No scleral icterus. Neck: No tracheal deviation present. Cardiovascular: Normal rate, regular rhythm and normal heart sounds. No murmur heard. Pulmonary/Chest: Effort normal. No stridor. No respiratory distress. He has wheezes. He has no rales. Diminished BS bilat with faint end expiratory wheeze Abdominal: Soft. He exhibits no distension. There is no tenderness. Musculoskeletal: He exhibits no edema. Lymphadenopathy: He has no cervical adenopathy. Neurological: He is alert. Skin: Skin is warm. No rash noted. He is not diaphoretic. No erythema. Vitals reviewed. LABORATORY EVALUATION: Diagnostic Studies: Available Labs and Images were reviewed personally. Significant resul ts and findings are addressed below or in the Assessment and Plan. PFT 12/03/18 SPIROMETRY: 1. FEV-1/FVC is 0.41 2. FEV-1 is 1.00L/28% 3. FVC is 2.45L/51% 4.There is nosignificant bronchodilator response. LUNG VOLUMES: 1. TLC is 9.09L/122% 2. RV/TLC is 0.71 DIFFUSING CAPACITY: 1. Diffusing capacity is 43% 2. DLCO/VA is 49% INTERPRETATION: 1. Very severe obstructive lung disease is present. 2. There is no significant change after bronchodilators. 3. Both hyperinflation and air trapping are present. 4. Diffusing is moderately reduced. ASSESSMENT AND PLAN: A> 68 y.o. male with COPD, emphysema, in a former smoker P> 1. COPD - the patient has COPD with emphysema and asthma overlap. Last PFT showed very severe obst ructive lung disease - complains of increased dyspnea and wheezing the past few weeks and fluctuates - currently not in distress but with faint wheeze on exam - will increase symbicort from 80/4.5 to 160/4.5 inhaler at 2puffs BID. No thrush on exam - will give prednisone taper to improve symptoms quickly. Chronic low dose prednisone is a consideration for the future if symptoms keep exacerbating - I also recommended to enroll in a pulmonary rehab program. Will send referral to [facility]. - continue singulair 10 daily - continue albuterol inh and nebs PRN for wheezing/dyspnea 2. Chronic nocturnal hypoxemia - continue 2LPM O2 at night. 3. Chronic/recurrent sinusitis - seen by ENT. S/p sinus surgery The patient will follow up with me in 3 months Jt Roman MD Pulmonary and Critical Care Medicine [facility] Pulmonology documented in this encounter Plan of Treatment +--------+ + + + + | Date | Type | Specialty | Care Team | Description | +--------+ + + + + | 05/24/ | Off-Site | Nephrology | Juan Paris | | | 2019 | Visit | | DO Nisreen [address] | | | | | | [address] | | | | | | [place] [address] | | | | | | [phone] | | | | | | | | +--------+ + + + + | 07/23/ | Office | Pulmonology | Abel, Jt | | | 2019 | Visit | | Tony Edwards MD [address] | | | | | | [address] | | | | | | [place] [address] | | | | | | [phone] | | | | | | | | +--------+ + + + + documented as of this encounter Visit Diagnoses + + | Diagnosis | + + | Centrilobular emphysema (HCC) - Primary | + + | Moderate persistent asthma without complication Unspecified asthma | + + | Nocturnal hypoxemia Hypoxemia | + + documented in this encounter"
--- OUTSIDE RECORDS SUMMARY | ~2020-04-30 | XMS | Encounter Summary ---
Demographics + + + | Address | [address] | | | [place] [address] | + + + | Home Phone | | + + + | Preferred Language | Unknown | + + + | Marital Status | | + + + | Temple Affiliation | 1013 | + + + | Race | Unknown | + + + | Ethnic Group | Unknown | + + + Author + + + | Author | [facility] | | | and [place] | + + + | Organization | [facility] | | | [...] Team Providers + +------+ + | Care Master Welder Name | Role | Phone | + +------+ + PCP | Unavailable | + +------+ + Encounter Details +--------+ + + + + | Date | Type | Department | Care Team | Description | +--------+ + + + + | 12/17/ | Hospital | [facility] | Terrence Quiles | | | 2009 | Encounter | MED [facility] GENER[facility] OP | [place] [address] | | | | | CONV DEPT [address] | [place], [place] | | | | | [place], | [address] | | | | | [place] [address] | | | | | | [phone] | | | +--------+ + + + [...] | | | | [address] | | | | | | [place] [address] | | | | | | [phone] | | | | | | | | +--------+ + + + + | 07/23/ | Office | Pulmonology | Jt Roman | | | 2019 | Visit | | Tony Edwards MD [address] | | | | | | [address] | | | | | | [place] [address] | | | | | | [phone] | | | | | | | | +--------+ + + + + documented as of this encounter Visit Diagnoses Not on filedocumented in this encounter"
--- OUTSIDE RECORDS SUMMARY | ~2020-04-30 | XMS | Encounter Summary ---
Demographics + + + | Address | [address] | | | [place] [address] | + + + | Home Phone | | + + + | Preferred Language | Unknown | + + + | Marital Status | | + + + | Pentecostal Affiliation | 1013 | + + + | Race | Unknown | + + + | Ethnic Group | Unknown | + + + Author + + + | Author | [facility] | | | and [place] | + + + | Organization | [facility] | | [...] Team Providers + +------+ + | Care Scientific Associate Name | Role | Phone | + +------+ + PCP | Unavailable | + +------+ + Encounter Details +--------+ + + + + | Date | Type | Department | Care Team | Description | +--------+ + + + + | 09/28/ | Abstract | [facility] | Juan Paris | | | 2014 | | NEPHROLOGY [address] | M, DO [address] | | | | | [address] | [address] | | | | | [place] | [place] [address] | | | | | [address] | [phone] | | | | | [phone] | | | +--------+ + + + [...] [place] | | | | | | [place] [address] | | | | | | [phone] | | | | | | | | +--------+ + + + + | 07/23/ | Office | Pulmonology | Jt Roman | | | 2019 | Visit | | Tony Edwards MD [address] | | | | | [address] | | | | | | [place] [address] | | | | | | [phone] | | | | | | | | +--------+ + + + + documented as of this encounter Procedures + +--------+ + + + | Procedure Name | Priori | Date/Time | Associated Diagnosis | Comments | | | ty | | | | + +--------+ + + + | EXTERNAL LAB: BUN | Routin | 09/27/2015 | | Results for this | | | e | | | procedure are in the | | | | | | results section. | + +--------+ + + + | EXTERNAL LAB: | Routin | 09/27/2015 | | Results for this | | GLUCOSE | e | | | procedure are in the | | | | | | results section. | + +--------+ + + + | EXTERNAL LAB: | Routin | 09/27/2015 | | Results for this | | CALCIUM | e | | | procedure are in the | | | | | | results section. | + +--------+ + + + | EXTERNAL LAB: CARBON | Routin | 09/27/2015 | | Results for this | | DIOXIDE | e | | | procedure are in the | | | | | | results section. | + +--------+ + + + | EXTERNAL LAB: | Routin | 09/27/2015 | | Results for this | | CHLORIDE | e | | | procedure are in the | | | | | | results section. | + +--------+ + + + | EXTERNAL LAB: | Routin | 09/27/2015 | | Results for this | | POTASSIUM | e | | | procedure are in the | | | | | | results section. | + +--------+ + + + | EXTERNAL LAB: SODIUM | Routin | 09/27/2015 | | Results for this | | | e | | | procedure are in the | | | | | | results section. | + +--------+ + + + | EXTERNAL LAB: | Routin | 09/27/2015 | | Results for this | | PROTEIN, URINE, 24HR | e | | | procedure are in the | | | | | | results section. | + +--------+ + + + | EXTERNAL LAB: EGFR | Routin | 09/27/2015 | | Results for this | | | e | | | procedure are in the | | | | | | results section. | + +--------+ + + + | EXTERNAL LAB: | Routin | 09/27/2015 | | Results for this | | CREATININE | e | | | procedure are in the | | | | | | results section. | + +--------+ + + + | CREATININE | Routin | 09/27/2015 | | Results for this | | CLEARANCE, RESULT | e | | | procedure are in the | | | | | | results section. | + +--------+ + + + documented in this encounter Results Creatinine Clearance, Result (09/27/2015) + + + + + + | Component | Value | Ref Range | Performed | Pathologist | | | | | At | Signature | + + + + + + | CREATININE | 74.0 (A) | 97.0 - 137.0 | [facility] | | | CLEARANCE | | mL/min | [facility] | | | | | [facility] | | | | [facility] - | | | | | | LABORATORY | | + + + + + + | 24H Urine | 1,600 | mL | [facility] | | | Volume | | | [facility] | | | | | | [facility] | | | | | [facility] - | | | | | | LABORATORY | | + + + + + + + + | Specimen | + + | Urine specimen | | (specimen) | + + + + + + + | Performing | Address | City/State/Zipcode | Phone Number | | Organization | | | | + + + + + | [facility] | [address] | [place] | [phone] | | [facility] | | [address] | | | - LABORATORY | | | | + + + + + External Lab: BRENDA (09/27/2015) + +-------+ + + + | Component | Value | Ref Range | Performed | Pathologist | | | | | At | Signature | + +-------+ + + + | BRENDA, | 20 | 6 - 23 | EXTERNAL | | | External | | | LAB | | + +-------+ + + + + +---------+ + + | Performing | Address | City/State/Zipcode | Phone Number | | Organization | | | | + +---------+ + + | EXTERNAL LAB | | | | + +---------+ + + External Lab: Glucose (09/27/2015) + +---------+ + + + | Component | Value | Ref Range | Performed | Pathologist | | | | | At | Signature | + +---------+ + + + | Glucose, | 148 (A) | 70 - 100 | EXTERNAL | | | External | | | LAB | | + +---------+ + + + + +---------+ + + | Performing | Address | City/State/Zipcode | Phone Number | | Organization | | | | + +---------+ + + | EXTERNAL LAB | | | | + +---------+ + + External Lab: Calcium (09/27/2015) + +-------+ + + + | Component | Value | Ref Range | Performed | Pathologist | | | | | At | Signature | + +-------+ + + + | Calcium, | 8.9 | 8.4 - 10.2 | EXTERNAL | | | External | | | LAB | | + +-------+ + + + + +---------+ + + | Performing | Address | City/State/Zipcode | Phone Number | | Organization | | | | + +---------+ + + | EXTERNAL LAB | | | | + +---------+ + + External Lab: Carbon Dioxide (09/27/2015) + +-------+ + + + | Component | Value | Ref Range | Performed | Pathologist | | | | | At | Signature | + +-------+ + + + | Carbon | 27 | 23 - 32 | EXTERNAL | | | Dioxide, | | | LAB | | | External | | | | | + +-------+ + + + + +---------+ + + | Performing | Address | City/State/Zipcode | Phone Number | | Organization | | | | + +---------+ + + | EXTERNAL LAB | | | | + +---------+ + + External Lab: Chloride (09/27/2015) + +-------+ + + + | Component | Value | Ref Range | Performed | Pathologist | | | | | At | Signature | + +-------+ + + + | Chloride, | 106 | 100 - 110 | EXTERNAL | | | External | | | LAB | | + +-------+ + + + + +---------+ + + | Performing | Address | City/State/Zipcode | Phone Number | | Organization | | | | + +---------+ + + | EXTERNAL LAB | | | | + +---------+ + + External Lab: Potassium (09/27/2015) + +-------+ + + + | Component | Value | Ref Range | Performed | Pathologist | | | | | At | Signature | + +-------+ + + + | Potassium, | 3.8 | 3.5 - 5.1 | EXTERNAL | | | External | | | LAB | | + +-------+ + + + + +---------+ + + | Performing | Address | City/State/Zipcode | Phone Number | | Organization | | | | + +---------+ + + | EXTERNAL LAB | | | | + +---------+ + + External Lab: Sodium (09/27/2015) + +-------+ + + + | Component | Value | Ref Range | Performed | Pathologist | | | | | At | Signature | + +-------+ + + + | Sodium, | 143 | 135 - 145 | EXTERNAL | | | External | | | LAB | | + +-------+ + + + + +---------+ + + | Performing | Address | City/State/Zipcode | Phone Number | | Organization | | | | + +---------+ + + | EXTERNAL LAB | | | | + +---------+ + + External Lab: Protein, Urine, 24Hr (09/27/2015) + + + + + + | Component | Value | Ref Range | Performed | Pathologist | | | | | At | Signature | + + + + + + | Protein, | 4,912 (A) | 150 | EXTERNAL | | | Urine 24Hr, | | | LAB | | | External | | | | | + + + + + + + + | Specimen | + + | Urine specimen | | (specimen) | + + + +---------+ + + | Performing | Address | City/State/Zipcode | Phone Number | | Organization | | | | + +---------+ + + | EXTERNAL LAB | | | | + +---------+ + + External Lab: eGFR (09/27/2015) + +-------+ + + + | Component | Value | Ref Range | Performed | Pathologist | | | | | At | Signature | + +-------+ + + + | eGFR, | 77 | 60 | EXTERNAL | | | External | | | LAB | | + +-------+ + + + + + | Specimen | + + | Blood specimen | | (specimen) | + + + +---------+ + + | Performing | Address | City/State/Zipcode | Phone Number | | Organization | | | | + +---------+ + + | EXTERNAL LAB | | | | + +---------+ + + External Lab: Creatinine (09/27/2015) + +-------+ + + + | Component | Value | Ref Range | Performed | Pathologist | | | | | At | Signature | + +-------+ + + + | Creatinine, | 0.97 | 0.6 - 1.3 | EXTERNAL | | | External | | | LAB | | + +-------+ + + + + + | Specimen | + + | Blood specimen | | (specimen) | + + + +---------+ + + | Performing | Address | City/State/Zipcode | Phone Number | | Organization | | | | + +---------+ + + | EXTERNAL LAB | | | | + +---------+ + + documented in this encounter Visit Diagnoses Not on filedocumented in this encounter"
--- OUTSIDE RECORDS SUMMARY | ~2020-04-30 | XMS | Encounter Summary ---
Demographics + + + | Address | [address] | | | [place] [address] | + + + | Home Phone | | + + + | Preferred Language | Unknown | + + + | Marital Status | | + + + | Restorationist Affiliation | 1013 | + + + | Race | Unknown | + + + | Ethnic Group | Unknown | + + + Author + + + | Author | [facility] | | | and [place] | + + + | Organization | [facility] | | | [...] Team Providers + +------+ + | Care Riddler Operator Name | Role | Phone | + +------+ + PCP | Unavailable | + +------+ + Reason for Visit +--------+ + | Reason | Comments | +--------+ + | COPD | Yearly | +--------+ + Encounter Details +--------+---------+ + + + | Date | Type | Department | Care Team | Description | +--------+---------+ + + + | 04/13/ | Office | [facility] | Venkata Rivera, | COPD, severe (HCC) | | 2017 | Visit | PULMONARY [address] | MD [address] | (Primary Dx); | | | | [place], | [place], [place] | Hypoxemia | | | | [place] [address] | [address] | | | | | [phone] | | | +--------+---------+ + + + Social History [...] | + +------+---+ + + + | Tobacco Cessation: Counseling Given: No | + + + + +---------+ + [...] + + + | Blood Pressure | 140/80 | 01/11/2017 9:25 AM | | | | | PDT | | + + + + + | Pulse | 92 | 01/11/2017 9:25 AM | | | | | PDT | | + + + + + | Temperature | - | - | | + + + + + | Respiratory Rate | - | - | | + + + + + | Oxygen Saturation | 96% | 01/11/2017 9:25 AM | 2 L/M | | | | PDT | | + + + + + | Inhaled Oxygen | - | - | | | Concentration | | | | + + + + + | Weight | 92 kg (202 lb 12.8 | 01/11/2017 9:25 AM | | | | oz) | PDT | | + + + + + | Height | 182.9 cm (6') | 01/11/2017 9:25 AM | | | | | PDT | | + + + + + | Body Mass Index | 27.5 | 01/11/2017 9:25 AM | | | | | PDT | | + + + + + documented in this encounter Patient Instructions Patient Instructions Venkata Rivera MD - 01/11/2017 9:52 AM PDT Exercise: Adding Intensity You have been exercising for 30 minutes most days of the week. Now you can move on to the n ext stage: increasingthe intensity. This means doing your activity in one or more of these ways: Longer. Exercise for 30 minutes or more without a break. Faster. Hike, run, or skate fast enough to raise your heart rate moderately as if you had walked fast to catch a bus. More often. Doyour activity 4 to 6 times a week instead of 1 to 3 times. Not just gym class Be creative.You can reach your health and fitness goals in many ways. Try some of these a ctivities: Team sports, like basketball or soccer Social or recreational activities, like hiking or dancing Individual exercise, like cycling, swimming, or skating Group fitness classes, like aerobic classes or weight training Safety first Whatever activity you choose, think about safety: Wear the right safety gear and shoes for your activity. Drink plenty of water during and after workouts. Wear light-colored clothing if you re out when it s dark. Make time to warm up before you exercise and cool down after. Carry ID (identification) with you if you re out alone. And be sure someone knows wher e you re going. If you re on foot, travel against traffic (except on blind corners). If you re on a bike, go with traffic. Obey the rules of the road. Tips for sticking with it Find a workout partner or sports club. If you know someone is expecting you, you ll be less likely to skip your workout. Pack a workout bag with everything you need. Then it s ready when you are. Choose a few different activities so you ll stay interested. Make it fun! What will help you to stick with it? 1. 2. 3. Date Last Reviewed: 05/13/[id number] [employer]. [address] [place] [address]. All formerly [facility] ts reserved. This information is not intended as a substitute for professional medical care. Always follow your healthcare professional's instructions. documented in this encounter Progress Notes Venkata Rivera MD - 01/11/2017 9:37 AM PDTFormatting of this note might be different f rom the original. Pulmonary Follow Up 01/11/2017 HPI Sierra Roman is a 66 y.o. male patient of Heron Garcia here today for follow up o f Gold Stage III COPD. The last pulmonary clinic visit was on 10/14/15. Since their last appointment they feel like their breathing issues have been stable. They have had any acute pulmonary illnesses. The patient has required a prednisone taper si nce our last clinic appointment. Likewise Sierra Roman has required antibiotics for a C OPD exacerbation since our last clinic appointment. Specifically several weeks ago the marlin ent apparently was in the local emergency department with worsening shortness of breath and cough. He was treated with methylprednisolone and azithromycin. His symptoms have returned to baseline.. They are currently on a daily regimen of Asmanex and Anoro for their COPD. They do not fee l like this medication regimen is/are controlling their symptoms. Currently he is using the ir short acting bronchodilator, Proventil, 2 times a day. They are using their albuterol ne bulizer, 1 times a day (middle of night) Currently the patient is able to walk 100 feet at their own pace on level ground before dev eloping dyspnea. They are not exercising regularly. They are not enrolled in cardiac/pulmon mario rehabilitation. They have not completed pulmonary rehabilitation in the past. The patient does cough chronically and does produce mucous. The mucous is clear in color. T hilda have not had hemoptysis since our last appointment. He has been evaluated for nocturnal oxygen. They currently are using nocturnal oxygen. He is currently on 2.5 LPM at night while sleeping. They report excellent compliance. They have been evaluated for daytime oxygen and do use it. They are currently on 2 LPM with exertion and 2.5 LPM at rest. The patient admits to the fact that he frequently does not wear supple mental oxygen with exertion. They have reported recent symptoms of nasal congestion, runny nose or post nasal drip. The patient have received this year's influenza vaccination. They are up to date with thei r Pneumovax and Prevnar 13. No tobacco. Past Medical History Past Medical History Diagnosis Date GERD (gastroesophageal reflux disease) Pereira's esophagus Hyperlipidemia Membranous glomerulonephritis 2004 COPD (chronic obstructive pulmonary disease) ([facility]) Gold III 12/18/09 Diabetes mellitus ([facility]) TYPE II Obesity Acid reflux disease Pneumonia Hypertension Social History: He reports that he quit smoking about 15 months ago. He quit smokeless tobacco use about 4 weeks ago. His smokeless tobacco use included Chew. He reports that he does not drink alcoho l or use illicit drugs. Allergies: Allergies Allergen Reactions Amoxicillin Rash Medications: Current outpatient prescriptions: albuterol 2.5 mg/3 mL nebulizer solution, Use in nebulizer every 4 hours as needed for shortness of breath, Disp: , Rfl: amLODIPine (NORVASC) 10 MG tablet, Take 10 mg by mouth Daily., Disp: , Rfl: ASMANEX 60 METERED DOSES 220 MCG/INH inhaler, INHALE 1 DOSE BY MOUTH TWICE DAILY, Disp : 1 Inhaler, Rfl: 5 aspirin 81 MG EC tablet, Take 81 mg by mouth Daily., Disp: , Rfl: Calcium Carb-Cholecalciferol 600-800 MG-UNIT TABS, Take 1 tablet by mouth Daily., Disp : , Rfl: furosemide (LASIX) 40 mg tablet, Take 1 tablet by mouth Daily., Disp: 90 tablet, Rfl: 4 losartan (COZAAR) 100 MG tablet, Take 100 mg by mouth nightly., Disp: , Rfl: metoprolol succinate (TOPROL-XL) 100 mg ER tablet, Take 50 mg in the morning and 100 m g at night, Disp: , Rfl: Multiple Vitamins-Minerals (ALIVE MENS ENERGY PO), Take 1 tablet by mouth Daily., Disp : , Rfl: omeprazole (PRILOSEC) 20 mg capsule, Take one capsule by mouth once daily on an empty stomach, Disp: , Rfl: simvastatin (ZOCOR) 20 mg tablet, Take 1 tablet by mouth Daily., Disp: 90 tablet, Rfl: 4 umeclidinium-vilanterol (ANORO ELLIPTA) 62.5-25 mcg/puff inhaler, Inhale 1 puff into t he lungs Daily., Disp: , Rfl: VENTOLIN HFA 108 (90 Base) MCG/ACT inhaler, Inhale 2 puffs into the lungs every 4 hour s as needed for Wheezing., Disp: , Rfl: Immunizations: Immunization History Administered Date(s) Administered INFLUENZA 65 Y OR >, TRIVALENT HIGH-DOSE 08/14/2015, 07/10/2016 INFLUENZA PF 18 Y OR >,TRIVALENT RECOMBINANT 10/10/2012, 07/15/2013, 07/18/2014 PNEUMOCOCCAL CONJUGATE 13-VALENT (PCV13) 09/13/2015 PNEUMOCOCCAL POLYSACCHARIDE 23-VALENT (PPSV23) 10/10/2011, 07/18/2014 TDAP, (ADOL/ADULT) 10/10/2011 Review of Systems Constitutional: Denies fever, chills, sweats and unexpected weight change. Sleep: Denies trouble sleeping, excessive snoring, and daytime sleepiness. Eyes: Denies vision change and eye irritation. ENT: Denies earache, nosebleeds, sore throat, and hoarseness. Resp: See HPI. CV: Denies neck/chest/jaw pain with exertion, palpitations, lightheadedness, syncope, orth opnea, PND and claudication. GI: Denies nausea, vomiting, abdominal pain, diarrhea,melena, and hematochezia. Neurologic: Denies frequent headaches, seizures, numbness or tingling in hands or feet, kavya tigo, and falls. Allergy Denies urticaria and allergic rash. Objective BP 140/80 mmHg | Pulse 92 | Ht 1.829 m (6') | Wt 91.989 kg (202 lb 12.8 oz) | BMI 27.50 kg/ m2 | SpO2 96% Physical Exam Constitutional: He is oriented to person, place, and time and well-developed, well-nourishe d, and in no distress. HENT: Nose: No mucosal edema. Right sinus exhibits no frontal sinus tenderness. Left sinus exhibi ts no frontal sinus tenderness. Mouth/Throat: Mucous membranes are normal. Neck: Trachea normal. Neck supple. No JVD present. Cardiovascular: Normal rate, regular rhythm, S1 normal and S2 normal. No murmur heard. Pulmonary/Chest: No accessory muscle usage. No tachypnea. No respiratory distress. He has n o decreased breath sounds. He has no wheezes. He has no rhonchi. He has no rales. Chest wall is not dull to percussion. Musculoskeletal: He exhibits no edema. Lymphadenopathy: He has no cervical adenopathy. Neurological: He is alert and oriented to person, place, and time. Gait normal. Skin: Skin is warm, dry and intact. No cyanosis. Nails show no clubbing. Data: None Assessment 1. COPD Gold stage III based on pulmonary function test from 2009. The patient's COPD i s currently managed with Asmanex and Anoro . Mr. Roman uses albuterol albeit less than he p otentially could. Over the last 15 months mild progression of the patient's symptoms are reported. He also h ad what sounds like one COPD exacerbation several weeks ago which was treated with methylpre dnisolone and azithromycin. The patient symptoms have returned to baseline though he is federico rly symptomatic from a pulmonary perspective. Once again today we discussed the benefits of regular schedule exercise. Mr. Roman is will ing to initiate such treatment. The patient was also reeducated regarding the appropriate u se of his albuterol. Specifically he can use either his albuterol MDI or nebulizer updraft every 4 hours. 2. Hypoxemia Mr. Roman was encouraged to wear his oxygen with exertion. He is in need o f repeat exertional oximetry assessment. Plan 1. Patient encouraged to use his albuterol MDI or nebulizer updraft every 4 hours as neede d for shortness of breath. 2. Initiate regular schedule exercise. 3. Pulmonary clinic follow-up appointment in 4 weeks' time. If persistent symptoms are no tobin would consider the addition of low-dose prednisone. 4. Will defer long-acting antianxiety medications to Dr. Garcia. At this point in time I wo uld not suggest initiation of short acting anxiolytics. CC: Heron Garcia documented in this encounter Plan of Treatment [...] [place] | | | | | | [place] [address] | | | | | | [phone] | | | | | | | | +--------+ + + + + | 07/23/ | Office | Pulmonology | Jt Roman | | | 2019 | Visit | | Tony Edwards MD [address] | | | [address] | | | | | | [place] [address] | | | | | | [phone] | | | | | | | | +--------+ + + + + documented as of this encounter Visit Diagnoses + + | Diagnosis | + + | COPD, severe (HCC) - Primary Chronic airway obstruction, not elsewhere classified | + + | Hypoxemia | + + documented in this encounter"
--- OUTSIDE RECORDS SUMMARY | ~2020-04-30 | XMS | Encounter Summary ---
Demographics + + + | Address | [address] | | | [place] [address] | + + + | Home Phone | | + + + | Preferred Language | Unknown | + + + | Marital Status | | + + + | Bahai Affiliation | 1013 | + + + | Race | Unknown | + + + | Ethnic Group | Unknown | + + + Author + + + | Author | [facility] | | | and [place] | + + + | Organization | [facility] | | | and [...] Team Providers + +------+ + | Care Box Truck Washer Name | Role | Phone | + +------+ + PCP | Unavailable | + +------+ + Encounter Details +--------+ + + + + | Date | Type | Department | Care Team | Description | +--------+ + + + + | 03/01/ | Documentati | [facility] | Juan Paris | | | 2016 | on | NEPHROLOGY [address] | M, DO [address] | | | | | [address] | [address] | | | | | [place] | [place] [address] | | | | | [address] | [phone] | | | | | [phone] | | | +--------+ + + + + Social History + +-------+ +--------+ + | Tobacco Use | Types | Packs/Day | Years | Date | | | | | Used | | + +-------+ +--------+ + | Former Smoker | | 0.2 | 40 | Quit: 09/29/2015 | + +-------+ +--------+ + + +------+---+---+ | Smokeless Tobacco: | Chew | | | | Current User | | | | + +------+---+---+ + + | Comments: 10/14/15: Currently on Chantix | + + + + +---------+ + [...] + + documented as of this encounter Progress Notes Fawn Oquendo - 03/03/2016 12:53 PM PDTNephrology note e-faxed to Heron Garcia MD , Vinay Chester MD, Noel Pope MD at [facility] on 03/03/16. troemel, Juan Nielson DO - 03/01/2016 1:37 PM PDTNEPHROLOG Allyson Esquivel's colonoscopy was negative on 08/31/14. His prostate exam with his Urologist on , was negative. However, after re-rereading the Consult Note, it does show that a "13 mm m ass" was noted on the inferior pole of the kidney, on CT of abd. at that time. This will n eed repeat imaging, for follow up, as well. His CT of the chest with contrast at [facility] on 02/24/16 was negative for any mass, except it did show lung changes c/w panlobular emphysema. I called Dr. Pope, at the [facility], [facility], who recommends Rx with Carmen ximab 1g, IV, 2 weeks apart, and then, 1 dose at 6 mo. Will also schedule CT of abd/pelvis for next 03/06/16, after discussion with Sierra. I reviewed all of above with Sierra who appears to understand, consents, and agrees to process. He does deny any gross hematuria. Will see him back in 4 weeks to review his progress. I greatly appreciate Dr. Sandi Pope's help with his work up . : Sandi Pope MD, [facility] Rico Chester MD documented in this encounter Plan of Treatment +--------+ + + + + | Date | Type | Specialty | Care Team | Description | +--------+ + + + + | 05/24/ | Off-Site | Nephrology | Juan Paris | | | 2019 | Visit | | DO Nisreen [address] | | | | | | [address] [place] | | | | | | [place] [address] | | | | | | [phone] | | | | | | | | +--------+ + + + + | 07/23/ | Office | Pulmonology | Jt Roman | | | 2019 | Visit | | Tony Edwards MD [address] | | | | | [address] | | | | | | [place] [address] | | | | | | [phone] | | | | | | | | +--------+ + + + + documented as of this encounter Visit Diagnoses Not on filedocumented in this encounter
--- OUTSIDE RECORDS SUMMARY | ~2020-04-30 | XMS | Encounter Summary ---
Demographics + + + | Address | [address] | | | [place] [address] | + + + | Home Phone | | + + + | Preferred Language | Unknown | + + + | Marital Status | | + + + | Zoroastrianism Affiliation | 1013 | + + + | Race | Unknown | + + + | Ethnic Group | Unknown | + + + Author + + + | Author | [facility] | | | and [place] | + + + | Organization | [facility] | | | [...] Team Providers + +------+ + | Care Slitter Scorer Name | Role | Phone | + +------+ + PCP | Unavailable | + +------+ + Encounter Details +--------+ + + + + | Date | Type | Department | Care Team | Description | +--------+ + + + + | 03/15/ | Hospital | [facility] | Conversion | Pulmonary | | 2017 | Encounter | [facility] | Transaction, | hypertension (HCC) | | | | ECHOCARDIOGRAPHY | Provider Unknown | | | | | [address] [facility] | | | | | | [place], [place] | | | | | | [address] | Jt Roman | | | | | [phone] | Tony Edwards MD [address] | | | | [address] | | | | | | [place] [address] | | | | | | [phone] | | | | | | | [...] + + + +---------+ + + | albuterol | Inhale 2 puffs into | | 0 | | | | (PROVENTIL HFA) 90 | the lungs every 4 | | | | | | mcg/puff inhaler | hours as needed for | | | | | | | Shortness of Breath. | | | | | + + + +---------+ + + | albuterol 2.5 mg/3 | Take 3 mLs by | 360 | 11 | 01/12/20 | | | mL nebulizer | nebulization every 4 | vial | | 17 | | | solution | hours as needed for | | | | | | | Shortness of | | | | | | | Breath. | | | | | + + + +---------+ + + | aspirin 81 MG EC | Take 81 mg by mouth | | 0 | 06/13/20 | | | tablet | Daily. | | | 12 | | + + + +---------+ + + | calcium, as | Take 600 mg by mouth | | 0 | | | | carbonate, | daily (with | | | | | | (CALTRATE) 600 mg | breakfast). | | | | | | tablet | | | | | | + + + +---------+ + + | Multiple | Take 1 tablet by | | 0 | | | | Vitamins-Minerals (B | mouth Daily. | | | | | | COMPLEX PLUS | | | | | | | VITAMIN C PO) | | | | | | + + + +---------+ + + | omeprazole | Take one capsule by | | 0 | 06/13/20 | | | (PRILOSEC) 20 mg | mouth once daily on | | | 12 | | | capsule | an empty stomach | | | | | + + + +---------+ + + | simvastatin | Take 1 tablet by | 90 | 4 | 08/31/20 | | | (ZOCOR) 20 mg tablet | mouth Daily. | tablet | | 14 | | + + + +---------+ + + | amLODIPine | Take 10 mg by mouth | | 0 | | | | (NORVASC) 10 MG | Daily. | | | | 9 | | tablet | | | | | | + + + +---------+ + + | Apple Cider | Take 1 tablet by | | 0 | | | | Vinegar 500 MG TABS | mouth Daily. | | | | 0 | + + + +---------+ + + | ASMANEX 60 METERED | INHALE 1 DOSE BY | 1 | 5 | 06/22/20 | | | DOSES 220 MCG/INH | MOUTH TWICE DAILY | Inhaler | | 14 | 9 | | inhaler | | | | | | + + + +---------+ + + | furosemide (LASIX) | Take 1 tablet by | 90 | 4 | 01/09/20 | | | 40 mg | mouth Daily. 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 | | | | 0 | | 315 MG CAPS | | | | | | + + + +---------+ + + | losartan (COZAAR) | Take 25 mg by mouth | | 0 | | | | 100 MG | Daily. 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 | | | | 9 | | rol (ANORO ELLIPTA) | | | | | | | 62.5-25 mcg/puff | | | | | | | inhaler | | | | | | + [...] [facility] | | | | | | [facility] [address] | | | | | | [place] [address] | | | | | | [phone] | | | | | | | | +--------+ + + + + | 07/23/ | Office | Pulmonology | Jt Roman | | 2019 | Visit | | Tony Edwards MD [address] | | | | | | [address] | | | | | | [place] [address] | | | | | | [phone] | | | | | | | | +--------+ + + + + documented as of this encounter Procedures + +--------+ + + + | Procedure Name | Priori | Date/Time | Associated Diagnosis | Comments | | | ty | | | | + +--------+ + + + | ECHO COMPLETE | Routin | 03/15/2017 | | Results for this | | | e | 2:25 PM | | procedure are in the | | | | PDT | | results section. | + +--------+ + + + documented in this encounter Results ECHO Complete (03/15/2017 2:25 PM PDT) + + | Specimen | + + | | + + + + + | Impressions | Performed At | + + + | 1. Pulmonary artery systolic pressure could not be assessed due to | | | the absence of adequate TR jet. 2. Unremarkable echo. | | + + + + + + | Narrative | Performed At | + + + | Patient Name: SIERRA ROMAN Date of : 1950 | | | Performing Physician: Sukhi Callahan | | | | | | ------REPORT ADDENDED------ INDICATIONS PHTN, COPD, | | | BIPEDAL EDEMA CONCLUSIONS 1. Pulmonary artery | | | systolic pressure could not be assessed due to the absence of adequate | | | TR jet. 2. Unremarkable echo. FINDINGS -------- ECG rhythm: | | | Sinus rhythm. Study: A 2-dimensional transthoracic echocardiogram | | | with m-mode, spectral and color flow Doppler was perfomed. Study: | | | This was a technically difficult study with suboptimal parasternal | | | views. Left Ventricle: Overall left ventricular systolic function is | | | normal with, an EF between 60 - 65 %. Left Ventricle: The left | | | ventricle cavity size is normal. Left Ventricle: Left ventricular | | | wall thickness is normal. Cannot exclude regional wall motion | | | abnormalities due to poor endocardial definition. Left Ventricle: The | | | diastolic filling pattern is normal for the age of the patient. | | | Right Ventricle: The right ventricle is normal in size. Right | | | Ventricle: The right ventricular systolic function is normal. Left | | | Atrium: The left atrium is normal in size. Right Atrium: The right | | | atrium is normal in size. Aortic Valve: There is mild aortic valve | | | sclerosis without stenosis. Aortic Valve: The aortic valve is mildly | | | calcified. Aortic Valve: There is no evidence of aortic | | | regurgitation. Mitral Valve: There is trace mitral regurgitation. | | | Mitral Valve: There is mild thickening and calcification of the | | | anterior mitral valve leaflet. Tricuspid Valve: The tricuspid valve | | | appears structurally normal. Tricuspid Valve: Trace tricuspid | | | regurgitation present. Tricuspid Valve: Pulmonary artery systolic | | | pressure could not be assessed due to the absence of adequate TR jet. | | | Pulmonic Valve: The pulmonic valve was not well visualized. | | | Pericardium: There is no pericardial effusion. IVC/Hepatic Veins: The | | | IVC is small (<1.5cm) and collapses with sniff, consistent with | | | central venous pressures of 0-5mmHg. Aorta: The aort was not well | | | visualized. MEASUREMENTS Ao sinus: 3.63 cm | | | EDV(Teich): 82.72 ml IVSd: 0.83 cm LVIDd: 4.29 cm LVPWd: | | | 0.78 cm LVOT Diam: 2.51 cm %FS: 27.90 % EF(Teich): | | | 54.36 % ESV(Teich): 37.75 ml IVSs: 0.88 cm LVIDs: 3.09 cm | | | LVPWs: 1.26 cm SV(Teich): 44.97 ml RA Major: 5.08 cm | | | RVIDd: 3.52 cm LVEF MOD A2C: 58.89 % SV MOD A2C: 58.11 ml | | | LVEF MOD A4C: 67.31 % SV MOD A4C: 62.16 ml EF Biplane: | | | 59.33 % LVEDV MOD BP: 99.43 ml LVESV MOD BP: 40.43 ml LVEDV | | | MOD A2C: 98.67 ml LVLd A2C: 8.36 cm LVEDV MOD A4C: 92.35 ml | | | LVLd A4C: 7.68 cm LVESV MOD A2C: 40.55 ml LVLs A2C: 7.16 | | | cm LVESV MOD A4C: 30.18 ml LVLs A4C: 5.27 cm LAESV(A-L): | | | 47.37 ml LAESV Index (A-L): 21.93 ml/m2 LAAs A2C: 15.46 cm2 | | | LAESV A-L A2C: 43.29 ml LALs A2C: 4.68 cm LAAs A4C: 16.92 | | | cm2 LAESV A-L A4C: 49.43 ml LALs A4C: 4.91 cm TAPSE: 2.68 | | | cm HR: 61.48 BPM AV maxP.39 mmHg AV meanP.88 mmHg | | | AV Vmax: 1.53 m/s AV Vmean: 1.02 m/s AV VTI: 29.90 cm TAWANDA | | | Vmax: 3.63 cm2 TAWANDA (VTI): 3.76 cm2 AVAI Vmax: 0.00 cm2/m2 | | | AVAI (VTI): 0.00 cm2/m2 LVCI Dopp: 3.24 l/minm2 LVCO Dopp: | | | 7.00 l/min HR: 62.15 BPM LVOT maxP.05 mmHg LVOT meanPG: | | | 3.12 mmHg LVSI Dopp: 52.15 ml/m2 LVSV Dopp: 112.66 ml LVOT | | | Vmax: 1.12 m/s LVOT Vmean: 0.84 m/s LVOT VTI: 22.74 cm MV | | | A Abram: 0.63 m/s MV DecT: 254.13 ms MV E Abram: 0.77 m/s MV | | | E/A Ratio: 1.22 Septal e': 0.10 m/s Septal E/e': 7.05 | | | Lateral e': 0.10 m/s Lateral E/e': 7.59 P Vein A: 0.30 m/s | | | P Vein D: 0.58 m/s P Vein S/D Ratio: 1.07 P Vein S: 0.62 | | | m/s HR: 61.70 BPM PV maxP.86 mmHg PV meanP.10 mmHg | | | PV Vmax: 0.68 m/s PV Vmean: 0.49 m/s PV VTI: 14.50 cm | | | Soda Drier Feeder: RANDALL Authenticated by: Sukhi Callahan MD Report | | | Date/Time: 03-16-2017 16:44:18 | | + + + + + | Procedure Note | + + | Jim Hartmann Conversion - 05/15/2019 2:45 AM PDT Patient Name: Suly ROMAN of | | : 1950 Performing Physician: Sukhi Callahan | | MD ------REPORT | | ADDENDED------INDICATIONS PHTN, COPD, BIPEDAL EDEMA CONCLUSIONS 1. | | Pulmonary artery systolic pressure could not be assessed due to the absence of adequate | | TR jet. 2. Unremarkable echo. FINDINGS--------ECG rhythm: Sinus rhythm.Study: A | | 2-dimensional transthoracic echocardiogram with m-mode, spectral and color flow Doppler | | was perfomed.Study: This was a technically difficult study with suboptimal parasternal | | views.Left Ventricle: Overall left ventricular systolic function is normal with, an EF | | between 60 - 65 %.Left Ventricle: The left ventricle cavity size is normal.Left | | Ventricle: Left ventricular wall thickness is normal. Cannot exclude regional wall | | motion abnormalities due to poor endocardial definition.Left Ventricle: The diastolic | | filling pattern is normal for the age of the patient.Right Ventricle: The right | | ventricle is normal in size.Right Ventricle: The right ventricular systolic function is | | normal.Left Atrium: The left atrium is normal in size.Right Atrium: The right atrium is | | normal in size.Aortic Valve: There is mild aortic valve sclerosis without | | stenosis.Aortic Valve: The aortic valve is mildly calcified.Aortic Valve: There is no | | evidence of aortic regurgitation.Mitral Valve: There is trace mitral | | regurgitation.Mitral Valve: There is mild thickening and calcification of the anterior | | mitral valve leaflet.Tricuspid Valve: The tricuspid valve appears structurally | | normal.Tricuspid Valve: Trace tricuspid regurgitation present.Tricuspid Valve: Pulmonary | | artery systolic pressure could not be assessed due to the absence of adequate TR | | jet.Pulmonic Valve: The pulmonic valve was not well visualized.Pericardium: There is no | | pericardial effusion.IVC/Hepatic Veins: The IVC is small (<1.5cm) and collapses with | | sniff, consistent with central venous pressures of 0-5mmHg.Aorta: The aort was not well | | visualized. MEASUREMENTS Ao sinus: 3.63 cmEDV(Teich): 82.72 mlIVSd: | | 0.83 cmLVIDd: 4.29 cmLVPWd: 0.78 cmLVOT Diam: 2.51 cm%FS: 27.90 %EF(Teich): | | 54.36 %ESV(Teich): 37.75 mlIVSs: 0.88 cmLVIDs: 3.09 cmLVPWs: 1.26 cmSV(Teich): | | 44.97 mlRA Major: 5.08 cmRVIDd: 3.52 cmLVEF MOD A2C: 58.89 %SV MOD A2C: 58.11 | | mlLVEF MOD A4C: 67.31 %SV MOD A4C: 62.16 mlEF Biplane: 59.33 %LVEDV MOD BP: | | 99.43 mlLVESV MOD BP: 40.43 mlLVEDV MOD A2C: 98.67 mlLVLd A2C: 8.36 cmLVEDV MOD | | A4C: 92.35 mlLVLd A4C: 7.68 cmLVESV MOD A2C: 40.55 mlLVLs A2C: 7.16 cmLVESV MOD | | A4C: 30.18 mlLVLs A4C: 5.27 cmLAESV(A-L): 47.37 mlLAESV Index (A-L): 21.93 | | ml/m2LAAs A2C: 15.46 rm3HCEGO A-L A2C: 43.29 mlLALs A2C: 4.68 cmLAAs A4C: 16.92 | | [id number] A-L A4C: 49.43 mlLALs A4C: 4.91 cmTAPSE: 2.68 cmHR: 61.48 BPMAV maxPG: | | 9.39 mmHgAV meanP.88 mmHgAV Vmax: 1.53 m/Riacrdo Vmean: 1.02 m/Ricardo VTI: 29.90 | | cmAVA Vmax: 3.63 cm2AVA (VTI): 3.76 sl0SRWV Vmax: 0.00 cm2/m2AVAI (VTI): 0.00 | | cm2/m2LVCI Dopp: 3.24 l/qrev8FMNT Dopp: 7.00 l/minHR: 62.15 BPMLVOT maxP.05 | | mmHgLVOT meanP.12 mmHgLVSI Dopp: 52.15 ml/m2LVSV Dopp: 112.66 mlLVOT Vmax: | | 1.12 m/sLVOT Vmean: 0.84 m/sLVOT VTI: 22.74 cmMV A Abram: 0.63 m/sMV DecT: 254.13 | | msMV E Abram: 0.77 m/sMV E/A Ratio: 1.22Septal e': 0.10 m/sSeptal E/e': | | 7.05Lateral e': 0.10 m/sLateral E/e': 7.59P Vein A: 0.30 m/sP Vein D: 0.58 m/sP | | Vein S/D Ratio: 1.07P Vein S: 0.62 m/sHR: 61.70 BPMPV maxP.86 mmHgPV meanPG: | | 1.10 mmHgPV Vmax: 0.68 m/sPV Vmean: 0.49 m/sPV VTI: 14.50 cm Soda Drier Feeder: | | MWAuthenticated by: Sukhi Callahan MDReport Date/Time: 03-16-2017 16:44:18 | | IMPRESSION: 1. Pulmonary artery systolic pressure could not be assessed due to the | | absence of adequate TR jet. 2. Unremarkable echo. | |EDV(Teich): 82.72 ml | |IVSd: 0.83 cm | |LVIDd: 4.29 cm | |LVPWd: 0.78 cm | |LVOT Diam: 2.51 cm | |%FS: 27.90 % | |EF(Teich): 54.36 % | |ESV(Teich): 37.75 ml | |IVSs: 0.88 cm | |LVIDs: 3.09 cm | |LVPWs: 1.26 cm | |SV(Teich): 44.97 ml | |RA Major: 5.08 cm | |RVIDd: 3.52 cm | |LVEF MOD A2C: 58.89 % | |SV MOD A2C: 58.11 ml | |LVEF MOD A4C: 67.31 % | |SV MOD A4C: 62.16 ml | |EF Biplane: 59.33 % | |LVEDV MOD BP: 99.43 ml | |LVESV MOD BP: 40.43 ml | |LVEDV MOD A2C: 98.67 ml | |LVLd A2C: 8.36 cm | |LVEDV MOD A4C: 92.35 ml | |LVLd A4C: 7.68 cm | |LVESV MOD A2C: 40.55 ml | |LVLs A2C: 7.16 cm | |LVESV MOD A4C: 30.18 ml | |LVLs A4C: 5.27 cm | |LAESV(A-L): 47.37 ml | |LAESV Index (A-L): 21.93 ml/m2 | |LAAs A2C: 15.46 cm2 | |LAESV A-L A2C: 43.29 ml | |LALs A2C: 4.68 cm | |LAAs A4C: 16.92 cm2 | |LAESV A-L A4C: 49.43 ml | |LALs A4C: 4.91 cm | |TAPSE: 2.68 cm | |HR: 61.48 BPM | |AV maxP.39 mmHg | |AV meanP.88 mmHg | |AV Vmax: 1.53 m/s | |AV Vmean: 1.02 m/s | |AV VTI: 29.90 cm | |TAWANDA Vmax: 3.63 cm2 | |TAWANDA (VTI): 3.76 cm2 | |AVAI Vmax: 0.00 cm2/m2 | |AVAI (VTI): 0.00 cm2/m2 | |LVCI Dopp: 3.24 l/minm2 | |LVCO Dopp: 7.00 l/min | |HR: 62.15 BPM | |LVOT maxP.05 mmHg | |LVOT meanP.12 mmHg | |LVSI Dopp: 52.15 ml/m2 | |LVSV Dopp: 112.66 ml | |LVOT Vmax: 1.12 m/s | |LVOT Vmean: 0.84 m/s | |LVOT VTI: 22.74 cm | |MV A Abram: 0.63 m/s | |MV DecT: 254.13 ms | |MV E Abram: 0.77 m/s | |MV E/A Ratio: 1.22 | |Septal e': 0.10 m/s | |Septal E/e': 7.05 | |Lateral e': 0.10 m/s | |Lateral E/e': 7.59 | |P Vein A: 0.30 m/s | |P Vein D: 0.58 m/s | |P Vein S/D Ratio: 1.07 | |P Vein S: 0.62 m/s | |HR: 61.70 BPM | |PV maxP.86 mmHg | |PV meanP.10 mmHg | |PV Vmax: 0.68 m/s | |PV Vmean: 0.49 m/s | |PV VTI: 14.50 cm | | | |Soda Drier Feeder: RANDALL | |Authenticated by: Sukhi Callahan MD | |Report Date/Time: 03-16-2017 16:44:18 | | | |IMPRESSION: | |1. Pulmonary artery systolic pressure could not be assessed due to the absence of adequate TR jet. 2. Unremarkable echo. | + + documented in this encounter Visit Diagnoses + + | Diagnosis | + + | Pulmonary hypertension (HCC) Other chronic pulmonary heart diseases | + + documented in this encounter"
--- OUTSIDE RECORDS SUMMARY | ~2020-04-30 | XMS | Encounter Summary ---
Demographics + + + | Address | [address] | | | [place] [address] | + + + | Home Phone | | + + + | Preferred Language | Unknown | + + + | Marital Status | | + + + | Druze Affiliation | 1013 | + + + | Race | Unknown | + + + | Ethnic Group | Unknown | + + + Author + + + | Author | [facility] | | | and [place] | + + + | Organization | [facility] | | | [...] Team Providers + +------+ + | Care Cleat Blanker Name | Role | Phone | + +------+ + PCP | Unavailable | + +------+ + Encounter Details +--------+ + + + + | Date | Type | Department | Care Team | Description | +--------+ + + + + | 06/13/ | Abstract | [facility] | Juan Paris | | | 2016 | | NEPHROLOGY [address] | M, DO [address] | | | | | [address] | [address] | | | | | [place] | [place] [address] | | | | | [address] | [phone] | | | | | [phone] | | | +--------+ + + + [...] this encounter Progress Notes Fawn Oquendo - 06/13/2017 4:36 PM PDTOutside records: Progress note from Heron soni MD, dos: 06/12/17. Sent to scan. documented in this encounter Plan of Treatment +--------+ + + + + | Date | Type | Specialty | Care Team | Description | +--------+ + + + + | 05/24/ | Off-Site | Nephrology | Juan Paris | | 2019 | Visit | | DO Nisreen [address] | | | | | | [address] | | | | | | [place] [address] | | | | | | [phone] | | | | | | | | +--------+ + + + + | 07/23/ | Office | Pulmonology | Jt Roman | | | 2019 | Visit | | Tony Edwards MD [address] | | | | | [address] | | | | | | [place] [address] | | | | | | [phone] | | | | | | | | +--------+ + + + + documented as of this encounter Visit Diagnoses Not on filedocumented in this encounter"
--- OUTSIDE RECORDS SUMMARY | ~2020-04-30 | XMS | Encounter Summary ---
Demographics + + + | Address | [address] | | | [place] [address] | + + + | Home Phone | | + + + | Preferred Language | Unknown | + + + | Marital Status | | + + + | Pentecostal Affiliation | 1013 | + + + | Race | Unknown | + + + | Ethnic Group | Unknown | + + + Author + + + | Author | [facility] | | | and [place] | + + + | Organization | [facility] | | | [...] Team Providers + +------+ + | Care Roll Table Operator Name | Role | Phone | [...] Description | +--------+---------+ + + + | 12/22/ | Office | [facility] | QuilesTerrence | BRONCHITIS, | | 2013 | Visit | PULMONARY [address] | [place] [address] [address] | OBSTRUCTIVE CHRONIC | | | | [place], | [facility], [place] | (Primary Dx); SLEEP | | | | [place] [address] | [address] | RELATED | | | | [phone] | | HYPOVENTILATION/HYPO | | | | | | XEMIA CCE; TOBACCO | | | | | | ABUSE, HX OF; | | | | | | Nicotine addiction; | | | | | | GASTROESOPHAGEAL | | | | | | REFLUX DISEASE, HX | | | | | | OF | +--------+---------+ + + + Social History [...] + + + | Blood Pressure | 138/74 | 12/22/2013 9:06 AM | | | | | PDT | | + + + + + | Pulse | 62 | 12/22/2013 9:06 AM | | | | | PDT | | + + + + + | Temperature | - | - | | + + + + + | Respiratory Rate | - | - | | + + + + + | Oxygen Saturation | 98% | 12/22/2013 9:06 AM | | | | | PDT | | + + + + + | Inhaled Oxygen | - | - | | | Concentration | | | | + + + + + | Weight | 87 kg (191 lb 14.4 | 12/22/2013 9:06 AM | | | | oz) | PDT | | + + + + + | Height | 179.7 cm (5' 10.75") | 12/22/2013 9:06 AM | | | | | PDT | | + + + + + | Body Mass Index | 26.95 | 12/22/2013 9:06 AM | | | | | PDT | | + + + + + documented in this encounter Patient Instructions Patient Instructions Terrence Quiles MD - 12/22/2013 9:25 AM PDTContinue Asmanex - u sing 2 puffs daily. [facility] Continue the Foradil inhaler. Please wear your oxygen when you sleep, as much as you can. It would be best if you smoked as little as possible - or none! documented in this encounter Progress Notes Terrence Quiles MD - 12/22/2013 9:31 AM PDTFormatting of this note might be differen t from the original. Terrence Qulies MD [facility] [address] [place] [id number] 12/22/2013 Sierra Roman 1950 History Sierra Roman is a 63 y.o. male followed for chronic obstructive pulmonary disease. He wa s seen initially in 2007 when he had ongoing tobacco use as well as significant occupational toxin inhalant exposures. 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 He had a bad bronchitis about [address] Garcia gave him azithromycin and a course of Prednisone which helped him improve. He is making progress but still has some increased cou gh. Then about 3 days ago he developed a gastroenteritis, including nausea and vomiting. Ainsley diamond is recovering from that illness now but his throat still feels a little sore. Aside from these recent acute illnesses, he is doing fairly well although there are still r easons for concern. Unfortunately, he is smoking more than when I last saw him. He is ofte n smoking 4 - 6 cigarettes per day, compared to 2 cigarettes per day last year. When I la st saw him he had stopped taking his inhaled corticosteroid Asmanex, but fortunately he is u sing it. The cost is a problem particularly after their insurance recently changed and afte r discussion he will shift to getting the [place]ex from the [place].He has remained very compliant with his formoterol inhaler. Previously he had also used Spiriva but this probably caused s ome urinary retention and he is doing well off of Spiriva. He also has documented nocturnal hypoxemia and remains fairly compliant with use of nocturn al oxygen. He estimates that he is wearing his nocturnal oxygen at least every other night. He does note a little lower extremity edema. Pertinent Prior Medical History Mr. Roman smoked cigarettes more heavily for about 30 years which were unfiltered Camel cig arettes. 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 In November 2010 he had some heavy dust exposure and developed a fairly severe airway exacerba tion. 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 For the renal disease, he began tapering prednisone in December 2010 but developed much worse shortness of breath, perhaps related to the dust exposure of the month before. I saw him in 2010 when he was having these problems and it was clear that he had a misunderstanding about the role of his different medications. He was on very low dose inhaled corticosteroid which was incr eased and he has done better with that. Fortunately, his renal disease has not recurred. Patient Active Problem List Diagnosis DIABETES MELLITUS, TYPE II CHRONIC OBSTRUCTIVE PULMONARY DISEASE HYPERLIPIDEMIA GASTROESOPHAGEAL REFLUX DISEASE, HX OF NICOTINE ADDICTION SHORTNESS OF BREATH BRONCHITIS, OBSTRUCTIVE CHRONIC TOBACCO ABUSE, HX OF SLEEP RELATED HYPOVENTILATION/HYPOXEMIA CCE MEMBRANOUS GLOMERULONEPHRITIS Current Outpatient Prescriptions Medication Sig Dispense Refill albuterol 2.5 mg/3 mL nebulizer solution Use in nebulizer every 4 hours as needed for s hortness of breath ASMANEX 60 METERED DOSES 220 MCG/INH inhaler inhale 1 dose by mouth twice a day 1 Inha ler 11 aspirin 81 MG EC tablet Take 81 mg by mouth Daily. Calcium Carb-Cholecalciferol 600-800 MG-UNIT TABS Take 2 tablets by mouth Daily. formoterol (FORADIL AEROLIZER) 12 mcg capsule for inhaler 1 capsule inhaled twice daily furosemide (LASIX) 80 mg tablet one half, by mouth, daily lisinopril (PRINIVIL,ZESTRIL) 40 MG tablet Take 40 mg by mouth Daily. metoprolol succinate (TOPROL-XL) 50 mg 24 hr tablet Take 50 mg by mouth Daily. Foley-3 Fatty Acids (FISH OIL) 1200 MG CAPS Take 1 capsule by mouth 3 times daily. omeprazole (PRILOSEC) 20 mg capsule Take one capsule by mouth once daily on an empty st omach simvastatin (ZOCOR) 20 mg tablet Take 1 tablet by mouth Daily. 30 tablet 11 zolpidem (AMBIEN) 10 mg tablet Take 1 tablet by mouth nightly as needed for Sleep. 30 tablet 4 Allergies Allergen Reactions Amoxicillin Past Medical History was reviewed and updated in the electronic record. Review of Systems Still slightly increased cough and a little more shortness of breath than usual from his re cent bronchitis. Physical Examination: BP 138/74 | Pulse 62 | Ht 1.797 m (5' 10.75") | Wt 87.045 kg (191 lb 14.4 oz) | BMI 26.96 k g/m2 | SpO2 98% General: Pleasant, middle-aged man in no distress. HEENT: Pharyngeal airway is mildly below average sized. No thrush. Upper and lower dentures in place. Neck: Mildly increased circumference. Lungs: Mild hyperresonance to percussion. Breath sounds mildly diminished throughout the ch est. No wheezes, crackles, rhonchi. Expiratory phase normal. Heart: Regular rate and rhythm. Extremities: No clubbing, cyanosis, or edema. Assessment: 1. BRONCHITIS, OBSTRUCTIVE CHRONIC Despite his recent respiratory illness, Mr. Roman is generally doing better than a couple y ears ago. His COPD is probably in the Gold stage 2-3 range. Unfortunately he is smoking mor e which is of concern. We discussed his Asmanex, the cost which has increased with an insur ance change. [facility] and plans to do so. We reaffirmed the importance of continuing his inhaled corticosteroid as he does have a reactive airway c omponent. His lung exam is at baseline following a relatively short recent course of predni sone for an exacerbation. 2. SLEEP RELATED HYPOVENTILATION/HYPOXEMIA CCE It is suspected that he might have mild sleep apnea but he is not interested in having this evaluated. He was encouraged to continue with nocturnal oxygen. 3. TOBACCO ABUSE, HX OF 4. Nicotine addiction Unfortunately he has increased his tobacco use now up to 4-6 cigarettes per day. I showed him some data about the effects of this on his longevity. He has grandchildren and will ta ke this information into consideration. I urged him to try to reduce to nonuse of smoking t obacco, or if he must smoke to just one cigarette per day. 5. GASTROESOPHAGEAL REFLUX DISEASE, HX OF Symptoms are controlled with omeprazole but he definitely needs to continue using it, as he is symptomatic if he does not take the medication. PLAN: 1. Smoking cessation was discussed. 2. Continue Asmanex 220 mcg 2 puffs daily. He will try to obtain this at the [place]. 3. Continue formoterol one capsule inhaled twice a day. 4. Continue nocturnal oxygen. 5. We discussed the return of symptoms to baseline level following his recent exacerbation . 6. Followup in one year earlier if problems. 7. Flu vaccine recommended each fall. 8. Continue omeprazole 20 mg daily. I spent 25 minutes face to face with the patient, greater than 50 % of the total time was s pent in counseling and coordination of care. Terrence Quiles Cc: MD Dr. Chapito Webster, [facility] Portions of this documentation were transcribed using voice recognition software. Every eff ort has been made to ensure accuracy; however, unintended grammatical and/or spelling errors may be present due to inadvertent computerized software tester errors. If there are any ques tions regarding the software tester, please contact our office. documented in th is encounter Plan of Treatment +--------+ + + [...] PB | | | | | | [place] [address] | | | | | | [phone] | | | | | | | | +--------+ + + + + | 07/23/ | Office | Pulmonology | AbelJt | | | 2019 | Visit | | Tony Edwards MD [address] | | | | | [address] | | | | | | [place] [address] | | | | | | [phone] | | | | | | | | +--------+ + + + + documented as of this encounter Visit Diagnoses + + | Diagnosis | + + | BRONCHITIS, OBSTRUCTIVE CHRONIC - Primary Obstructive chronic bronchitis without | | exacerbation | + + | SLEEP RELATED HYPOVENTILATION/HYPOXEMIA CCE Sleep related hypoventilation/hypoxemia | | in conditions classifiable elsewhere | + + | TOBACCO ABUSE, HX OF Personal history of tobacco use, presenting hazards to health | + + | Nicotine addiction Tobacco use disorder | + + | GASTROESOPHAGEAL REFLUX DISEASE, HX OF Personal history of other diseases of | | digestive system | + + documented in this encounter
--- OUTSIDE RECORDS SUMMARY | ~2020-04-30 | XMS | Encounter Summary ---
Demographics + + + | Address | [address] | | | [place] [address] | + + + | Home Phone | | + + + | Preferred Language | Unknown | + + + | Marital Status | | + + + | Rastafarian Affiliation | 1013 | + + + | Race | Unknown | + + + | Ethnic Group | Unknown | + + + Author + + + | Author | [facility] | | | and [place] | + + + | Organization | [facility] | | | [...] Team Providers + +------+ + | Care Supervisor Customer Records Division Name | Role | Phone | + +------+ + | Meme Burgos MD | PCP | | + +------+ + Reason for Visit +--------+ + | Reason | Comments | +--------+ + | Other | Good Shesakshid | +--------+ + Encounter Details +--------+ + + + + | Date | Type | Department | Care Team | Description | +--------+ + + + + | 07/21/ | Documentati | [facility] | Arturo Meadows R, | Other (Leonard Mitchell) | | 2019 | on | PULMONOLOGY [address] | | | | | [address] | | | | | | [place] | | | | | | [address] | | | | | | [phone] | | | +--------+ + + + [...] documented as of this encounter Progress Notes Arturo Meadows, [address] - 07/21/2019 9:15 AM PDTFaxed a pulmonary rehab order wi th a PFT. Received a confirmation for [phone]. documented in this encounter Plan of Treatment +--------+ + + + + | Date | Type | Specialty | Care Team | Description | +--------+ + + + + | 05/24/ | Off-Site | Nephrology | Juan Paris | | | 2019 | Visit | | DO Graeme Nielson | | | | | | [address] | | | | | | [place] [address] | | | | | | [phone] | | | | | | | | +--------+ + + + + | 07/23/ | Office | Pulmonology | Jt Roman | | | 2019 | Visit | | Tony Edwards MD [address] | | | | | | [address] | | | | | | [place] [address] | | | | | | [phone] | | | | | | | | +--------+ + + + + documented as of this encounter Visit Diagnoses Not on filedocumented in this encounter"
--- OUTSIDE RECORDS SUMMARY | ~2020-04-30 | XMS | Encounter Summary ---
Demographics + + + | Address | [address] | | | [place] [address] | + + + | Home Phone | | + + + | Preferred Language | Unknown | + + + | Marital Status | | + + + | Hindu Affiliation | 1013 | + + + | Race | Unknown | + + + | Ethnic Group | Unknown | + + + Author + + + | Author | [facility] | | | and [place] | + + + | Organization | [facility] | | | [...] Team Providers + +------+ + | Care Locomotive Mechanic Apprentice Name | Role | Phone | + +------+ + PCP | Unavailable | + +------+ + Encounter Details +--------+ + + + + | Date | Type | Department | Care Team | Description | +--------+ + + + + | 01/15/ | Abstract | [facility] | Juan Paris | | | 2016 | | NEPHROLOGY [address] | M, DO [address] | | | | | [address] | [address] | | | | | [place] | [place] [address] | | | | | [address] | [phone] | | | | | [phone] | | | +--------+ + + + [...] this encounter Progress Notes Fawn Oquendo - 01/15/2017 8:40 AM PDTOutside records: Progress note from Heron Garcia MD, dos: 01/10/17. Sent to [facility]. 8:4 1 AM PDTdocumented in this encounter Plan of Treatment +--------+ [...] [address] | | | | | | [place] [address] | | | | | | [phone] | | | | | | | | +--------+ + + + + | 07/23/ | Office | Pulmonology | Jt Roman | | | 2019 | Visit | | Tony Edwards MD [address] | | | | | | [address] | | | | | | [place] [address] | | | | | | [phone] | | | | | | | | +--------+ + + + + documented as of this encounter Visit Diagnoses Not on filedocumented in this encounter"
--- OUTSIDE RECORDS SUMMARY | ~2020-04-30 | XMS | Encounter Summary ---
Demographics + + + | Address | [address] | | | [place] [address] | + + + | Home Phone | | + + + | Preferred Language | Unknown | + + + | Marital Status | | + + + | Faith Affiliation | 1013 | + + + | Race | Unknown | + + + | Ethnic Group | Unknown | + + + Author + + + | Author | [facility] | | | and [place] | + + + | Organization | [facility] | [...] Team Providers + +------+ + | Care Rental Management Trainee Name | Role | Phone | + +------+ + PCP | Unavailable | + +------+ + Encounter Details +--------+ + + + + | Date | Type | Department | Care Team | Description | +--------+ + + + + | 09/11/ | Orders Only | [facility] [place] | Juan Paris | 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 | | NEPHROLOGY [address] | M, DO [address] | glomerulonephritis | | | | [address] | [address] [place] | (Primary Dx) | | | | [place] | [place] [address] | | | | | [address] | [phone] | | | | | [phone] | | | +--------+ + + + [...] + documented as of this encounter Progress Naida Sandoval RN - 09/11/2016 11:43 AM PSTInterpath 10/09/16 documented in this encounter Plan of Treatment [...] [address] | | | | | | [place] [address] | | | | | | [phone] | | | | | | | | +--------+ + + + + | 07/23/ | Office | Pulmonology | Jt Roman | | | 2019 | Visit | | Tony Edwards MD [address] | | | | | | [address] | | | | | | [place] [address] | | | | | | [phone] | | | | | | | | +--------+ + + + + documented as of this encounter Visit Diagnoses + + | Diagnosis | + + | 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
--- OUTSIDE RECORDS SUMMARY | ~2020-04-30 | XMS | Encounter Summary ---
Demographics + + + | Address | [address] | | | [place] [address] | + + + | Home Phone | | + + + | Preferred Language | Unknown | + + + | Marital Status | | + + + | Church Affiliation | 1013 | + + + | Race | Unknown | + + + | Ethnic Group | Unknown | + + + Author + + + | Author | [facility] | | | and [place] | + + + | Organization | [facility] | | [...] Team Providers + +------+ + | Care Student Teacher Name | Role | Phone | + +------+ + PCP | Unavailable | + +------+ + Encounter Details +--------+ + + + + | Date | Type | Department | Care Team | Description | +--------+ + + + + | 11/11/ | [facility] | [facility] | Venkata Rivera, | | | 2008 | Encounter | MED CTR GENERIC OP | MD [address] | | | | | CONV DEPT [address] | [place], [place] | | | | | [place], | [address] | | | | | [place] [address] | | | | | | [phone] | | | +--------+ + + + [...] | | | | [address] [place] | | | | | | [place] [address] | | | | | | [phone] | | | | | | | | +--------+ + + + + | 07/23/ | Office | Pulmonology | Jt Roman | | | 2019 | Visit | | Tony Edwards MD [address] | | | | | | [address] | | | | | | [place] [address] | | | | | | [phone] | | | | | | | | +--------+ + + + + documented as of this encounter Visit Diagnoses Not on filedocumented in this encounter"
--- OUTSIDE RECORDS SUMMARY | ~2020-04-30 | XMS | Encounter Summary ---
Demographics + + + | Address | [address] | | | [place] [address] | + + + | Home Phone | | + + + | Preferred Language | Unknown | + + + | Marital Status | | + + + | Yarsanism Affiliation | 1013 | + + + | Race | Unknown | + + + | Ethnic Group | Unknown | + + + Author + + + | Author | [facility] | | | and [place] | + + + | Organization | [facility] | | | and [...] Team Providers + +------+ + | Care Hatchery Manager Name | Role | Phone | + +------+ + | Meme Burgos MD | PCP | | + +------+ + Encounter Details +--------+ + + + + | Date | Type | Department | Care Team | Description | +--------+ + + + + | 05/02/ | Orders Only | [facility] | Juan Paris | Membranous | | 2019 | | NEPHROLOGY [address] | M, DO [address] | glomerulonephritis | | | | [address] | [address] [place] | (Primary Dx); Type 2 | | | | [place], [place] | [place] [address] | diabetes mellitus | | | | [address] | [phone] | with stage 2 chronic | | | | [phone] | | kidney disease, | | | | | | without long-term | | | | | | current use of | | | | | | insulin (HCC); Mixed | | | | | | hyperlipidemia; | | | | | | Vitamin D deficiency | +--------+ + + + + Social [...] documented as of this encounter Progress Notes Naida Forman RN - 05/02/2019 10:57 AM PDTLabs for upcoming nephrology appointment sent to: [facility] documented in this encounter Plan of Treatment +--------+ + + + + | Date | Type | Specialty | Care Team | Description | +--------+ + + + + | 05/24/ | Off-Site | Nephrology | Juan Paris | | | 2019 | Visit | | DO Graeme Nielson | | | | | | [address] | | | | | | [place] [address] | | | | | | [phone] | | | | | | | | +--------+ + + + + | 07/23/ | Office | Pulmonology | Jt Roman | | | 2019 | Visit | | Tony Edwards MD [address] | | | | | | [address] | | | | | | [place] [address] | | | | | | [phone] | | | | | | | | +--------+ + + + + documented as of this encounter Visit Diagnoses + + | Diagnosis | + + | Membranous glomerulonephritis - Primary Nephritis and nephropathy, not specified as | | acute or chronic, with lesion of membranous glomerulonephritis | + + | Type 2 diabetes mellitus with stage 2 chronic kidney disease, without long-term | | current use of insulin (HCC) | + + | Mixed hyperlipidemia | + + | Vitamin D deficiency Unspecified vitamin D deficiency | + + documented in this encounter"
--- OUTSIDE RECORDS SUMMARY | ~2020-04-30 | XMS | Encounter Summary ---
Demographics + + + | Address | [address] | | | [place] [address] | + + + | Home Phone | | + + + | Preferred Language | Unknown | + + + | Marital Status | | + + + | Voodoo Affiliation | 1013 | + + + | Race | Unknown | + + + | Ethnic Group | Unknown | + + + Author + + + | Author | [facility] | | | and [place] | + + + | Organization | [facility] | | [...] Team Providers + +------+ + | Care Belt Turner Name | Role | Phone | + +------+ + PCP | Unavailable | + +------+ + Encounter Details +--------+ + + + + | Date | Type | Department | Care Team | Description | +--------+ + + + + | 11/23/ | Documentati | [facility] | Juan Paris | | | 2016 | on | NEPHROLOGY [address] | M, DO [address] | | | | | [address] | [address] | | | | | [place] | [place] [address] | | | | | [address] | [phone] | | | | | [phone] | | | +--------+ + + + [...] this encounter Progress Notes Fawn Oquendo - 11/23/2015 11:11 AM PSTManually faxed letter from Dr Paris to Sandi Pope MD at [facility] (fx: [phone]) with the surgical patholog y report from 08/09/05 on 11/19/15. The initial paperwork was mailed to Dr. Junior but it was returned to Dr. Paris's office on 11/19/15 marked unable to deliver. documented in this encounter Plan of Treatment [...] [address] | | | | | | [place] [address] | | | | | | [phone] | | | | | | | | +--------+ + + + + | 07/23/ | Office | Pulmonology | Jt Roman | | | 2019 | Visit | | Tony Edwards MD [address] | | | | | | [address] | | | | | | [place] [address] | | | | | | [phone] | | | | | | | | +--------+ + + + + documented as of this encounter Visit Diagnoses Not on filedocumented in this encounter"
--- OUTSIDE RECORDS SUMMARY | ~2020-04-30 | XMS | Encounter Summary ---
Demographics + + + | Address | [address] | | | [place] [address] | + + + | Home Phone | | + + + | Preferred Language | Unknown | + + + | Marital Status | | + + + | Roman Catholic Affiliation | 1013 | + + + | Race | Unknown | + + + | Ethnic Group | Unknown | + + + Author + + + | Author | [facility] | | | and [place] | + + + | Organization | [facility] | | | and [...] Team Providers + +------+ + | Care Financial Reserve Clerk Name | Role | Phone | + +------+ + PCP | Unavailable | + +------+ + Encounter Details +--------+ + + + + | Date | Type | Department | Care Team | Description | +--------+ + + + + | 03/27/ | [facility] | [facility] | Juan Paris | 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, DO [address] | glomerulonephritis | | | | [address] | [address] [place] | | | | | [place] | [place] [address] | | | | | [address] | [phone] | | | | | [phone] | | | +--------+ + + + [...] + + + | Blood Pressure | 151/70 | 03/27/2016 6:16 PM | | | | | PDT | | + + + + + | Pulse | 75 | 03/27/2016 6:16 PM | | | | | PDT | | + + + + + | Temperature | 36.7 C (98.1 F) | 03/27/2016 6:16 PM | | | | | PDT | | + + + + + | Respiratory Rate | 16 | 03/27/2016 6:16 PM | | | | | PDT | | + + + + + | Oxygen Saturation | 93% | 03/27/2016 6:16 PM | | | | | PDT | | + + + + + | Inhaled Oxygen | - | - | | | Concentration | | | | + + + + + | Weight | 93.6 kg (206 lb 6.4 | 03/27/2016 1:00 PM | | | | oz) | PDT | | + + + + + | Height | - | - | | + + + + + | Body Mass Index | 29.62 | 10/14/2015 11:14 AM | | | | | PST | | + + + + + documented in this encounter Discharge Instructions Patient Instructions Chance Whatley RN - 03/27/2016 12:40 PM PDTIf you experience any re actions from the infusion, such as rash, swelling or soreness, contact your physician. documented in this encounter Medications at Time of Discharge [...] + + | albuterol 2.5 mg/3 | Use in nebulizer | | 0 | 06/13/20 | | | mL nebulizer | every 4 hours as | | | 12 | 7 | | solution | needed for shortness | | | | | | | of breath | | | | | + + + +---------+ + + | albuterol 90 | Inhale 2 puffs into | | 0 | | | | mcg/puff | the lungs every 6 | | | | 7 | | inhalerIndications: | hours as needed for | | | | | | Mucopurulent chronic | Wheezing. | | | | | | bronchitis ([facility]), | | | | | | | 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, | | | | | | | 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 | | | | | | | ([facility]), Essential | | | | | | | hypertension | | | | | | + + + +---------+ + + | amLODIPine | Take 10 mg by mouth | | 0 | | | | (NORVASC) 2.5 mg | nightly. | | | | 7 | | tabletIndications: | | | | | | | Mucopurulent chronic | | | | | | | bronchitis ([facility]), | | | | | | | 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, | | | | | | | 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 | | | | | | | ([facility]), Essential | | | | | | [...] + + + +---------+ + + | Calcium | Take 1 tablet by | | 0 | | | | Carb-Cholecalciferol | mouth Daily. 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 | | | | 7 | | tabletIndications: | | | | | | | 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, | | | | | | | Essential | | | | | | | hypertension, | | | | | | | benign, Proteinuria, | | | | | | | Type 2 diabetes | | | | | | | mellitus with stage | | | | | | | 2 chronic kidney | | | | | | | disease (HCC) | | | | | | + + + +---------+ + + | furosemide (LASIX) | Take 0.5 tablets by | 90 | 4 | 01/12/20 | | | 40 mg | mouth 2 times daily. | tablet | | 16 | 7 | | tabletIndications: | | | | | | | 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, | | | | | | | Essential | | | | | | | hypertension, | | | | | | | benign, Proteinuria, | | | | | | | Type 2 diabetes | | | | | | | mellitus with stage | | | | | | | 2 chronic kidney | | | | | | | disease (HCC) | | | | | | + [...] + +---------+ + + | metoprolol | 50 mg, AM and 100 | | 0 | | | | succinate | mg, PM. 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 | | 0 | | | | Products (MIDNITE) | | | | | 7 | | CHEW | | | | | | + [...] + + +---------+ + + | | Take 1 tablet by | 14 | 0 | 03/27/20 | | | sulfamethoxazole-tri | mouth 2 times daily. | tablet | | 16 | 6 | | methoprim (BACTRIM | | | | | | | DS) 800-160 mg per | | | | | | | tabletIndications: | | | | | | | Ulcer of finger, | | | | | | | with unspecified | | | | | | | severity (HCC) | | | | | | + [...] [place] | | | | | | [place] [address] | | | | | | [phone] | | | | | | | | +--------+ + + + + | 07/23/ | Office | Pulmonology | Jt Roman | | | 2019 | Visit | | Tony Edwards MD [address] | | | | [address] | | | | | | [place] [address] | | | | | | [phone] | | | | | | | | +--------+ + + + + documented as of this encounter Visit Diagnoses + + | Diagnosis | + + | Membranous glomerulonephritis Nephritis and nephropathy, not specified as acute or | | chronic, with lesion of membranous glomerulonephritis | + + documented in this encounter Administered Medications + +--------+ +--------+------+------+ | Medication Order | MAR | Action | Dose | Rate | Site | | | Action | Date | | | | + +--------+ +--------+------+------+ | acetaminophen (TYLENOL) tablet | Given | 03/27/20 | 650 mg | | | | 650 mg 650 mg, Oral, ONCE, Mon | | 16 1:29 | | | | | 03/27/16 at 1310, For 1 dose | | PM PDT | | | | + +--------+ +--------+------+------+ +---+---+ | | | +---+---+ + +-------+ +-------+---+---+ | diphenhydrAMINE (BENADRYL) | Given | 03/27/20 | 25 mg | | | | tablet 25 mg 25 mg, Oral, ONCE, | | 16 1:29 | | | | | 03/27/16 at 1310, For 1 dose | | PM PDT | | | | + +-------+ +-------+---+---+ +---+---+ | | | +---+---+ + +---------+ + +---+---+ | riTUXimab (RITUXAN) 1,000 mg in | New Bag | 03/27/20 | 1,000 mg | | | | sodium chloride 0.9% 1,000 mL | | 16 1:50 | | | | | infusion 1,000 mg, Intravenous, | | PM PDT | | | | | ONCE, 03/27/16 at 1325, For 1 | | | | | | | dose, Initial infusion: Start at | | | | | | | 50 mg/hr. If no reaction, | | | | | | | increase by 50 mg/hr increments | | | | | | | every 30 min, to a maximum of 400 | | | | | | | mg/hour. Subsequest infusions | | | | | | | (if tolerated initial): Start at | | | | | | | 100 mg/hr. If no reaction, | | | | | | | increase by 100 mg/hr increments | | | | | | | every 30 min, to a maximum of 400 | | | | | | | mg/hour. If reaction occurs, | | | | | | | stop infusion. If reaction | | | | | | | abates, restart infusion at 50% | | | | | | | of previous rate., | | | | | | + +---------+ + +---+---+ +---+---+ | | | +---+---+ documented in this encounter"
--- OUTSIDE RECORDS SUMMARY | ~2020-04-30 | XMS | Encounter Summary ---
Demographics + + + | Address | [address] | | | [place] [address] | + + + | Home Phone | | + + + | Preferred Language | Unknown | + + + | Marital Status | | + + + | Hinduism Affiliation | 1013 | + + + | Race | Unknown | + + + | Ethnic Group | Unknown | + + + Author + + + | Author | [facility] | | | and [place] | + + + | Organization | [facility] | | | [...] Team Providers + +------+ + | Care Water Pump Operator Name | Role | Phone | + +------+ + PCP | Unavailable | + +------+ + Encounter Details +--------+ + + + + | Date | Type | Department | Care Team | Description | +--------+ + + + + | 04/08/ | Hospital | [facility] | Terrence Quiles | | | 2007 | Encounter | MED CTR GENERIC OP | MD Nest[place] [address] | | | | | CONV DEPT [address] | [place], [place] | | | | | [place], | [address] | | | | | [place] [address] | | | | | | [phone] | | | +--------+ + + + [...] [place] | | | | | | [place] [address] | | | | | | [phone] | | | | | | | | +--------+ + + + + | 07/23/ | Office | Pulmonology | Jt Roman | | | 2019 | Visit | | Tony Edwards MD [address] | | | | [address] | | | | | | [place] [address] | | | | | | [phone] | | | | | | | | +--------+ + + + + documented as of this encounter Visit Diagnoses Not on filedocumented in this encounter"
--- OUTSIDE RECORDS SUMMARY | ~2020-04-30 | XMS | Encounter Summary ---
Demographics + + + | Address | [address] | | | [place] [address] | + + + | Home Phone | | + + + | Preferred Language | Unknown | + + + | Marital Status | | + + + | Anglican Affiliation | 1013 | + + + | Race | Unknown | + + + | Ethnic Group | Unknown | + + + Author + + + | Author | [facility] | | | and [place] | + + + | Organization | [facility] | | | [...] Team Providers + +------+ + | Care Health Physics Technician Name | Role | Phone | + +------+ + PCP | Unavailable | + +------+ + Encounter Details +--------+ + + + + | Date | Type | Department | Care Team | Description | +--------+ + + + + | 05/23/ | Orders Only | [facility] [place] | Juan Paris | 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 | | NEPHROLOGY [address] | M, DO [address] | glomerulonephritis | | | | [address] | [address] [place] | (Primary Dx) | | | | [place] | [place] [address] | | | | | [address] | [phone] | | | | | [phone] | | | +--------+ + + + [...] [address] | | | | | | [place] [address] | | | | | | [phone] | | | | | | | | +--------+ + + + + | 07/23/ | Office | Pulmonology | Jt Roman | | | 2019 | Visit | | Tony Edwards MD [address] | | | | [address] | | | | | | [place] [address] | | | | | | [phone] | | | | | | | | +--------+ + + + + documented as of this encounter Visit Diagnoses + + | Diagnosis | + + | 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
--- OUTSIDE RECORDS SUMMARY | ~2020-04-30 | XMS | Encounter Summary ---
Demographics + + + | Address | [address] | | | [place] [address] | + + + | Home Phone | | + + + | Preferred Language | Unknown | + + + | Marital Status | | + + + | Cheondoism Affiliation | 1013 | + + + | Race | Unknown | + + + | Ethnic Group | Unknown | + + + Author + + + | Author | [facility] | | | and [place] | + + + | Organization | [facility] | | | and [...] Team Providers + +------+ + | Care Industrial Technology Teacher Name | Role | Phone | + +------+ + PCP | Unavailable | + +------+ + Encounter Details +--------+ + + + + | Date | Type | Department | Care Team | Description | +--------+ + + + + | 12/19/ | Orders Only | [facility] [place] | Juan Paris | Membranous | | 2017 | | NEPHROLOGY [address] | M, DO [address] | glomerulonephritis | | | | [address] | [address] [place] | (Primary Dx); | | | | [place] | [place] [address] | Hyperlipidemia, | | | | [address] | [phone] | unspecified | | | | [phone] | | hyperlipidemia type | +--------+ + + + + Social [...] documented as of this encounter Progress Notes Mariam Oneil RN - 12/19/2016 1:33 PM PDTLabs for nephrology appt on 01/08/17 sent to [facility]. documented in this en counter Plan of Treatment +--------+ + + + + | Date | Type | Specialty | Care Team | Description | +--------+ + + + + | 05/24/ | Off-Site | Nephrology | Juan Paris | | | 2019 | Visit | | DO Nisreen [address] | | | | | | [address] | | | | | | [place] [address] | | | | | | [phone] | | | | | | | | +--------+ + + + + | 07/23/ | Office | Pulmonology | Jt Roman | | 2019 | Visit | | Tony Edwards MD [address] | | | | [address] | | | | | | [place] [address] | | | | | | [phone] | | | | | | | | +--------+ + + + + documented as of this encounter Visit Diagnoses + + | Diagnosis | + + | 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
--- OUTSIDE RECORDS SUMMARY | ~2020-04-30 | XMS | Encounter Summary ---
Demographics + + + | Address | [address] | | | [place] [address] | + + + | Home Phone | | + + + | Preferred Language | Unknown | + + + | Marital Status | | + + + | Holiness Affiliation | 1013 | + + + | Race | Unknown | + + + | Ethnic Group | Unknown | + + + Author + + + | Author | [facility] | | | and [place] | + + + | Organization | [facility] | | [...] Team Providers + +------+ + | Care Candy Cutter Machine Name | Role | Phone | + [...] Closed | | Nephrology | Diagnoses | Joes, | Raina, | | | | | Bishop | Heron | Juan Nielson DO | | | | | glomerulonep | MD Rico | [address] | | | | | hritis | [address] | | | | | Hypertensive | [place] | [address] | | | | | chronic | [address] | [place], | | | | | kidney | Noel | [place] [address] | | | | | disease with | [place] | Phone: | | | | | stage 1 | [address] | [phone] | | | | | through | Phone: | Fax: | | | | | stage 4 | [phone] | [phone] | | | | | chronic | Fax: | | | | | | kidney | [phone] | | | | | | disease, or | | | | | | | unspecified | | | | | | | chronic | | | | | | | kidney | | | | | | | disease | | | | | | | Procedures | | | | | | | [facility] OFFICE | | | | | | | OUTPATIENT | | | | | | | VISIT 25 | | | | | | | MINUTES | | | +--------+--------+ + + + + Encounter Details +--------+ + + + + | Date | Type | Department | Care Team | Description | +--------+ + + + + | 01/08/ | Off-Site | [facility] [place] | Juan Paris | COPD, severe (HCC) | | 2017 | Visit | NEPHROLOGY [address] | M, DO [address] | (Primary Dx); | | | | [address] | [address] [place] | 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[place], [place] | [place] [address] | glomerulonephritis; | | | | [address] | [phone] | Essential | | | | [phone] | | hypertension, | | | | | | benign; Mixed | | | | | | [...] + + + | Blood Pressure | 112/70 | 01/08/2017 5:36 PM | | | | | PDT | | + + + + + | Pulse | - | - | | + + + + + | Temperature | 37 C (98.6 F) | 01/08/2017 5:36 PM | | | | | PDT [...] | Weight | 93.6 kg (206 lb 5.6 | 01/08/2017 5:36 PM | | | | oz) | PDT | | + + + + + | Height | - | - | | + + + + + | Body Mass Index | 29.61 | 10/14/2015 11:14 AM | | | | | PST | | + + + + + documented in this encounter Progress Notes Juan Paris DO - 01/08/2017 5:38 PM PDT Subjective: NEPHROLOGY Patient ID: Sierra Roman is a 66 y.o. male. 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 He initially was treated in 2004 with 6 mo. of predn isone, then, 12 mo. of mycophenolate + 12 weeks prednisone. He was treated with 3 doses of Rituximab 1g, the last on 09/27/[address] Suki Pope at the [facility], at the [facility]. (He had his initial dose of Rituximab 1g, IVPB on 03/14/16). He also has HTN, COPD, hyperlip idemia. His states that he had an acute flare of dyspnea, around 2400 on Sat., 01/06/17 and had to go to the ER at [facility]. There he was given inhaled nebs., PO medrol, a nd started on PO Azithromycin. He states that he is breathing better. He denies any new hematuria, foamy urine, but states that he did have very mild ankle edema prior to his breathing flare-up. Outpatient Prescriptions Marked as Taking for the 01/08/17 encounter (Off-Site Visit) with Nisreen Paris DO Medication Sig Dispense Refill albuterol 2.5 mg/3 mL nebulizer solution Use in nebulizer every 4 hours as needed for s hortness of breath albuterol 90 mcg/puff inhaler Inhale 2 puffs into the lungs every 6 hours as needed for Wheezing. amLODIPine (NORVASC) 2.5 mg tablet Take 10 mg by mouth nightly. ASMANEX 60 METERED DOSES 220 MCG/INH inhaler INHALE 1 DOSE BY MOUTH TWICE DAILY 1 Inhal er 5 aspirin 81 MG EC tablet Take 81 mg by mouth Daily. Calcium Carb-Cholecalciferol 600-800 MG-UNIT TABS Take 1 tablet by mouth Daily. furosemide (LASIX) 40 mg tablet Take 1 tablet by mouth Daily. 90 tablet 4 [DISCONTINUED] furosemide (LASIX) 40 mg tablet Take 0.5 tablets by mouth as needed. (Myke turcios taking differently: Take 40 mg by mouth Daily.) 90 tablet 4 [DISCONTINUED] gabapentin (NEURONTIN) 300 mg capsule Take 1 capsule by mouth Twice tomasa ly as needed. 60 capsule 11 losartan (COZAAR) 100 MG tablet Take 100 mg by mouth nightly. metoprolol succinate (TOPROL-XL) 50 mg 24 hr tablet 50 mg, AM and 100 mg, PM. Multiple Vitamins-Minerals (ALIVE MENS ENERGY PO) Take 1 tablet by mouth Daily. omeprazole (PRILOSEC) 20 mg capsule Take one capsule by mouth once daily on an empty st omach simvastatin (ZOCOR) 20 mg tablet Take 1 tablet by mouth Daily. 90 tablet 4 umeclidinium-vilanterol (ANORO ELLIPTA) 62.5-25 mcg/puff inhaler Inhale 1 puff into the lungs Daily. Allergies Allergen Reactions Amoxicillin Rash Objective: Blood pressure 112/70, temperature 37 C (98.6 F), weight 93.6 kg (206 lb 5.6 oz). Physical Exam Heart: Regular rate and rhythm with no S3, S4, murmur or rub. Lungs: CTA bilaterally, no rales or wheezes, currently. Abdomen: Soft, flat, nontender, normoactive bowel sounds. Extremities: trace edema, no clubbing, cyanosis. Lab Results Component Value Date NAEX 141 01/05/2017 KEX 4.0 01/05/2017 CLEX 101 01/05/2017 CO2EX 28 01/05/2017 BUNEX 18 01/05/2017 CREEX 1.09 01/05/2017 EGFREX 67 01/05/2017 GLUEX 171* 01/05/2017 PHOSEX 3.2 01/05/2017 UNX4OPY 6.1 12/22/2015 Lab Results Component Value Date CHOLEX 165 01/05/2017 HDLEX 58.9 01/05/2017 LDLEX 82 01/05/2017 TRIGEX 123 01/05/2017 Lab Results Component Value Date WBCEX 12.1* 01/05/2017 HGBEX 15.1 01/05/2017 HCTEX 45.2 01/05/2017 PLTEX 240 01/05/2017 Lab Results Component Value Date CRCLEARANCE 60.0* 01/05/2017 PROTEX 560* 01/05/2017 Assessment: 1. 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 2. Hypertension-- stable on losartan. 3. Hyperlipidemia--on statin Rx. 4. Steroid-induced Type II DM-- in remission. 5. COPD-- recently, with an acute flare, as above. Plan: 1. He will finish all of his medrol tablets, and Azithromycin. 2. I discussed with Sierra and his , Kortney , that his proteinuria increased very minimally from 275 mg/day to 560 mg/day, but that his GFR still appears very well preserved. 3. His BP control is satisfactory on the losartan. 4. Will continue his same regiment for now. Will plan on seeing him back in 4 mo. He mauro l have CBC, CMP, PO4, iPTH, and 24 Hr urine one week prior to that. 5. He states that he is also seeing his PCP , Dr. Garcia this week for F/U. : Rico Garcia M.D., Noel Pope MD, [facility], Nephrology Section, [facility], [place] , [place] documented in this encounter Plan of Treatment [...] [address] | | | | | | [place] [address] | | | | | | [phone] | | | | | | | | +--------+ + + + + | 07/23/ | Office | Pulmonology | Jt Roman | | | 2019 | Visit | | Tony Edwards MD [address] | | | | | [address] | | | | | | [place] [address] | | | | | | [phone] | | | | | | | | +--------+ + + + + documented as of this encounter Procedures + +--------+ + + + | Procedure Name | Priori | Date/Time | Associated Diagnosis | Comments | | | ty | | | | + +--------+ + + + | LABS - EXTERNAL SCAN | | 01/05/2017 | | Results for this | | | | 12:00 AM | | procedure are in the | | | | PDT | | results section. | + +--------+ + + + documented in this encounter Results LABS - EXTERNAL SCAN (01/05/2017 12:00 AM PDT) + + + | Narrative | Performed [...] of membranous glomerulonephritis | + + | Essential hypertension, benign | + + | Mixed hyperlipidemia | + + documented in this encounter"
--- OUTSIDE RECORDS SUMMARY | ~2020-04-30 | XMS | Encounter Summary ---
Demographics + + + | Address | [address] | | | [place] [address] | + + + | Home Phone | | + + + | Preferred Language | Unknown | + + + | Marital Status | | + + + | Latter-Day Affiliation | 1013 | + + + | Race | Unknown | + + + | Ethnic Group | Unknown | + + + Author + + + | Author | [facility] | | | and [place] | + + + | Organization | [facility] | | | [...] Team Providers + +------+ + | Care Acquisition Marketing Manager Name | Role | Phone | + +------+ + PCP | Unavailable | + +------+ + Encounter Details +--------+ + + + + | Date | Type | Department | Care Team | Description | +--------+ + + + + | 03/13/ | Hospital | [facility] | Juan Paris | | | 2016 | Encounter | MED CTR LABORATORY | M, DO [address] | | | | | [address] [place] | [address] | | | | | [place] | [place] [address] | | | | | [address] | [phone] | | | | | [phone] | | | +--------+ + + + [...] | | | | | type II ([facility]), | | | | | | | [...] [address] | | | | | | [place] [address] | | | | | | [phone] | | | | | | | | +--------+ + + + + | 07/23/ | Office | Pulmonology | Jt Roman | | 2019 | Visit | | Tony Edwards MD [address] | | | | | [address] | | | | | | [place] [address] | | | | | | [phone] | | | | | | | | +--------+ + + + + documented as of this encounter Visit Diagnoses Not on filedocumented in this encounter"
--- OUTSIDE RECORDS SUMMARY | ~2020-04-30 | XMS | Encounter Summary ---
Demographics + + + | Address | [address] | | | [place] [address] | + + + | Home Phone | | + + + | Preferred Language | Unknown | + + + | Marital Status | | + + + | Scientology Affiliation | 1013 | + + + [...] Team Providers + +------+ + | Care Tumbling Instructor Name | Role | Phone | + +------+ + PCP | Unavailable | + +------+ + Encounter Details +--------+ + + + + | Date | Type | Department | Care Team | Description | +--------+ + + + + | 03/12/ | Abstract | [facility] | Juan Paris | | | 2017 | | NEPHROLOGY [address] | M, DO [address] | | | | | [address] | [address] | | | | | [place] | [place] [address] | | | | | [address] | [phone] | | | | | [phone] | | | +--------+ + + + [...] as of this encounter Progress Notes Fawn Oqunedo - 03/12/2017 9:24 AM PDTOutside records: Progress note from Heron neal MD, dos: 03/08/17. Sent to [facility]. documented in this encounter Plan of Treatment +--------+ + + + + | Date | Type | Specialty | Care Team | Description | +--------+ + + + + | 05/24/ | Off-Site | Nephrology | Juan Paris | | | 2019 | Visit | | DO Nisreen [address] | | | | | | [address] | | | | | | [place] [address] | | | | | | [phone] | | | | | | | | +--------+ + + + + | 07/23/ | Office | Pulmonology | Jt Roman | | | 2019 | Visit | | Tony Edwards MD [address] | | | | | | [address] | | | | | | [place] [address] | | | | | | [phone] | | | | | | | | +--------+ + + + + documented as of this encounter Visit Diagnoses Not on filedocumented in this encounter"
--- OUTSIDE RECORDS SUMMARY | ~2020-04-30 | XMS | Encounter Summary ---
Demographics + + + | Address | [address] | | | [place] [address] | + + + | Home Phone | | + + + | Preferred Language | Unknown | + + + | Marital Status | | + + + | Religion Affiliation | 1013 | + + + | Race | Unknown | + + + | Ethnic Group | Unknown | + + + Author + + + | Author | [facility] | | | and [place] | + + + | Organization | [facility] | [...] Team Providers + +------+ + | Care Casing Wringer Operator Name | Role | Phone | + +------+ + PCP | Unavailable | + +------+ + Encounter Details +--------+ + + + + | Date | Type | Department | Care Team | Description | +--------+ + + + + | 11/22/ | Abstract | [facility] | Juan Paris | | | 2017 | | NEPHROLOGY [address] | M, DO [address] | | | | | [address] | [address] | | | | | [place] | [place] [address] | | | | | [address] | [phone] | | | | | [phone] | | | +--------+ + + + [...] this encounter Progress Notes Fawn Oquendo - 11/22/2016 8:59 AM PSTOutside record: Progress note from Heron Garcia MD, dos: 11-16-16. Sent to scan. 9:0 0 AM PSTdocumented in this encounter Plan of Treatment +--------+ [...] | | | | | | [place] [address] | | | | | | [phone] | | | | | | | | +--------+ + + + + | 07/23/ | Office | Pulmonology | Jt Roman | | | 2019 | Visit | | Tony Edwards MD [address] | | | | | | [address] | | | | | | [place] [address] | | | | | | [phone] | | | | | | | | +--------+ + + + + documented as of this encounter Visit Diagnoses Not on filedocumented in this encounter"
--- OUTSIDE RECORDS SUMMARY | ~2020-04-30 | XMS | Encounter Summary ---
Demographics + + + | Address | [address] | | | [place] [address] | + + + | Home Phone | | + + + | Preferred Language | Unknown | + + + | Marital Status | | + + + | Presybeterian Affiliation | 1013 | + + + | Race | Unknown | + + + | Ethnic Group | Unknown | + + + Author + + + | Author | [facility] | | | and [place] | + + + | Organization | [facility] | | [...] Team Providers + +------+ + | Care Principal Architectural Firm Name | Role | Phone | + +------+ + PCP | Unavailable | + +------+ + Reason for Visit + +--------+ + | Reason | Onset | Comments | | | Date | | + +--------+ + | Medication Refill | 08/18/ | | | | 2012 | | + +--------+ + Encounter Details +--------+--------+ + + + | Date | Type | Department | Care Team | Description | +--------+--------+ + + + | 08/18/ | Refill | [facility] [place] | Juan Paris | Medication Refill | | 2012 | | NEPHROLOGY [address] | M, DO [address] | | | | | [address] | [address] [place] | | | | | [place], [place] | [place] [address] | | | | | [address] | [phone] | | | | | [phone] | | | +--------+--------+ + + + Social History + +-------+ [...] | | | | | | [place] [address] | | | | | | [phone] | | | | | | | | +--------+ + + + + | 07/23/ | Office | Pulmonology | Jt Roman | | | 2019 | Visit | | Tony Edwards MD [address] | | | | | [address] | | | | | | [place] [address] | | | | | | [phone] | | | | | | | | +--------+ + + + + documented as of this encounter Visit Diagnoses Not on filedocumented in this encounter"
--- OUTSIDE RECORDS SUMMARY | ~2020-04-30 | XMS | Encounter Summary ---
Demographics + + + | Address | [address] | | | [place] [address] | + + + | Home Phone | | + + + | Preferred Language | Unknown | + + + | Marital Status | | + + + | Jain Affiliation | 1013 | + + + [...] Team Providers + +------+ + | Care Hand Nailer Name | Role | Phone | + +------+ + PCP | Unavailable | + +------+ + Encounter Details +--------+ + + + + | Date | Type | Department | Care Team | Description | +--------+ + + + + | 05/05/ | Abstract | [facility] [place] | Juan Paris | | | 2013 | | NEPHROLOGY [address] | M, DO [address] | | | | | [address] | [address] [place] | | | | | [place] | [place] [address] | | | | | [address] | [phone] | | | | | [phone] | | | +--------+ + + + [...] [place] | | | | | | [place] [address] | | | | | | [phone] | | | | | | | | +--------+ + + + + | 07/23/ | Office | Pulmonology | Jt Roman | | | 2019 | Visit | | Tony Edwards MD [address] | | | | | | [address] | | | | | | [place] [address] | | | | | | [phone] | | | | | | | | +--------+ + + + + documented as of this encounter Procedures + +--------+ + + + | Procedure Name | Priori | Date/Time | Associated Diagnosis | Comments | | | ty | | | | + +--------+ + + + | CREATININE | Routin | 05/01/2014 | | Results for this | | CLEARANCE, TEST | e | | | procedure are in the | | | | | | results section. | + +--------+ + + + documented in this encounter Results Creatinine Clearance, Test (05/01/2014) + + + + + + | Component | Value | Ref Range | Performed | Pathologist | | | | | At | Signature | + + + + + + | CREATININE | 82.0 (A) | 97.0 - 137.0 | EXTERNAL | | | CLEARANCE | | mL/min | LAB | | + + + + + + | PROTEIN, | 910.0 | mg/24hrs | EXTERNAL | | | 24HR URINE | | | LAB | | + [...]
--- OUTSIDE RECORDS SUMMARY | ~2020-04-30 | XMS | Encounter Summary ---
Demographics + + + | Address | [address] | | | [place] [address] | + + + | Home Phone | | + + + | Preferred Language | Unknown | + + + | Marital Status | | + + + | Spiritism Affiliation | 1013 | + + + | Race | Unknown | + + + | Ethnic Group | Unknown | + + + Author + + + | Author | [facility] | | | and [place] | + + + | Organization | [facility] | | | [...] Team Providers + +------+ + | Care Core Shaper Name | Role | Phone | + +------+ + PCP | Unavailable | + +------+ + Reason for Referral Service/Procedure (Routine) +--------+--------+ + + + + | Status | Reason | Specialty | Diagnoses / | Referred By | Referred To | | | | | Procedures | Contact | Contact | +--------+--------+ + + + + | Closed | | Infusion | Diagnoses | Stroemel, | [facility] | | | | Therapy | Membranous | Juan Nielson, | Infusion [address] | | | | | glomerulonep | DO [address] | | | | | hritis | [address] | [place], | | | | | Procedures | [address] | [place] [address] | | | | | [place] | [place], | Phone: | | | | | INJECTION, | [place] [address] | [phone] | | | | | 100 MG | Phone: | Fax: | | | | | | [phone] | [phone] | | | | | | Fax: | | | | | | | [phone] | | +--------+--------+ + + + + Encounter Details +--------+ + + + + | Date | Type | Department | Care Team | Description | +--------+ + + + + | 03/01/ | Orders Only | [facility] [place] | Juan Paris | 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 | | NEPHROLOGY [address] | M, DO [address] | glomerulonephritis | | | | [address] [place] | (Primary Dx) | | | | [place], [place] | [place] [address] | | | | | [address] | [phone] | | | | | [phone] | | | +--------+ + + + [...] | | | | [address] [place] | | | | | | [place] [address] | | | | | | [phone] | | | | | | | | +--------+ + + + + | 07/23/ | Office | Pulmonology | AbelJt | | | 2019 | Visit | | Tony Edwards MD [address] | | | | | | [address] | | | | | | [place] [address] | | | | | | [phone] | | | | | | | | +--------+ + + + + + + +--------+ + + | Name | Type | Priori | Associated Diagnoses | Order Schedule | | | | ty | | | + + +--------+ + + | * [facility] - | Outpatient | Routin | Membranous | Ordered: 03/01/2016 | | AMB Referral | Referral | e | glomerulonephritis | | + + +--------+ + + documented as of this encounter Visit Diagnoses + + | Diagnosis | + + | 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
--- OUTSIDE RECORDS SUMMARY | ~2020-04-30 | XMS | Encounter Summary ---
Demographics + + + | Address | [address] | | | [place] [address] | + + + | Home Phone | | + + + | Preferred Language | Unknown | + + + | Marital Status | | + + + | Anabaptist Affiliation | 1013 | + + + [...] Team Providers + +------+ + | Care Beading Machine Operator Name | Role | Phone | + +------+ + PCP | Unavailable | + +------+ + Reason for Visit +--------+ + | Reason | Comments | +--------+ + | COPD | 1 mo follow up with walking oximetry | +--------+ + Encounter Details +--------+---------+ + + + | Date | Type | Department | Care Team | Description | +--------+---------+ + + + | 02/13/ | Office | [facility] | Venkata Rivera, | COPD, severe (HCC) | | 2017 | Visit | PULMONARY [address] | MD [address] | (Primary Dx); | | | | [place], | [place] | Hypoxemia | | | | [place] [address] | [address] | | | | | [phone] | | | +--------+---------+ + + + [...] + + + | Blood Pressure | 110/64 | 02/13/2017 2:21 PM | | | | | PDT | | + + + + + | Pulse | 72 | 02/13/2017 2:21 PM | | | | | PDT | | + + + + + | Temperature | - | - | | + + + + + | Respiratory Rate | - | - | | + + + + + | Oxygen Saturation | 96% | 02/13/2017 2:21 PM | | | | | PDT | | + + + + + | Inhaled Oxygen | - | - | | | Concentration | | | | + + + + + | Weight | 94.9 kg (209 lb 3.2 | 02/13/2017 2:21 PM | | | | oz) | PDT | | + + + + + | Height | 182.9 cm (6') | 02/13/2017 2:21 PM | | | | | PDT | | + + + + + | Body Mass Index | 28.37 | 02/13/2017 2:21 PM | | | | | PDT | | + + + + + documented in this encounter Patient Instructions Patient Instructions Venkata Rivera MD - 02/13/2017 3:16 PM PDT Breathing Techniques: Pursed-Lip Breathing Inhaling through the nose and exhaling through pursed or closed lips makes breathing easier . Pursed-lip breathing can also help you when you are short of breath.You can practice darleen athing this way anytime, anywhere. For example, if you re watching TV, practice during the commercials. Try to practice several times a day. Over time, pursed-lip breathing will feel natural. Here's how to do it: 1. Sit in a comfortable chair. 2. Relax your neck and shouldermuscles. 3. Breathe in slowly through your nose while counting to 2. 4. Hold your lips together as if you are trying to whistle or blow out a candle. 5. Breathe out slowly and gently through your pursed lips while counting to 4. Date Last Reviewed: 01/30/201619995226-4031 [employer] [place] [address], [place] [address]. All righ ts reserved. This information is not intended as a substitute for professional medical care. Always follow your healthcare professional's instructions. Exercise: Adding Intensity You have been exercising [...] it? 1. 2. 3. Date Last Reviewed: 05/13/201519997470-7452 [employer]. [address] [place] [address], [place] [address]. All righ ts reserved. This information is not intended as a substitute for professional medical care. Always follow your healthcare professional's instructions. documented in this encounter Progress Notes Venkata Rivera MD - 02/13/2017 3:05 PM PDTFormatting of this note might be different f rom the original. Pulmonary Follow Up 02/13/2017 HPI Sierra Roman is a 66 y.o. male patient of Heron Garcia here today for follow up o f Gold Stage III COPD. The last pulmonary clinic visit was on 01/11/17. Since their last appointment they feel like their breathing issues have been decreasing. Following her last clinic appointment the nick bean was placed on furosemide by Dr. Jang. Sierra has subsequently noted less in the way of shortness of breath. They have not had any acute pulmonary illnesses. The patient has not required a prednisone taper since our last clinic appointment. Likewise Sierra Roman has not required antibio tics for a COPD exacerbation since our last clinic appointment. They are currently on a daily regimen of Anoro and Asmanex for their COPD. They do feel li ke this medication regimen is/are controlling their symptoms. Currently he is using their s hort acting bronchodilator, Proventil, 1-2 times a day. They are using their albuterol nebul izer, 0 times a day. Currently the patient is able to walk 1/4 mile at their own pace on level ground before dev eloping dyspnea. They are not exercising regularly. They are not enrolled in cardiac/pulmon mario rehabilitation. They have not completed pulmonary rehabilitation in the past. The patient does not cough chronically and does produce mucous. The mucous is clear in colo r. They have not had hemoptysis since our last appointment. He has been evaluated for nocturnal oxygen. They currently are using nocturnal oxygen. He is currently on 2.5 LPM at night while sleeping. They have not reported recent symptoms of nasal congestion, runny nose or post nasal drip. The patient have received this year's influenza vaccination. They are up to date with thei r Pneumovax and Prevnar 13. Past Medical History Past Medical History Diagnosis Date GERD (gastroesophageal reflux disease) Pereira's esophagus Hyperlipidemia Membranous glomerulonephritis 2004 COPD (chronic obstructive pulmonary disease) (HCC) Gold III 12/18/09 Diabetes mellitus ([facility]) TYPE II Obesity Acid reflux disease Pneumonia Hypertension Social History: He reports that he quit smoking about 16 months ago. He quit smokeless tobacco use about 2 months ago. His smokeless tobacco use included Chew. He reports that he does not drink alcoh ol or use illicit drugs. Allergies: Allergies Allergen Reactions Amoxicillin Rash Medications: Current outpatient prescriptions: albuterol (PROVENTIL HFA) 90 mcg/puff inhaler, Inhale 2 puffs into the lungs every 4 h ours as needed for Shortness of Breath., Disp: , Rfl: albuterol 2.5 mg/3 mL nebulizer solution, Take 3 mLs by nebulization every 4 hours as needed for Shortness of Breath., Disp: 360 vial, Rfl: 11 amLODIPine (NORVASC) 10 MG tablet, Take 10 mg by mouth Daily., Disp: , Rfl: Apple Cider Vinegar 500 MG TABS, Take 1 tablet by mouth Daily., Disp: , Rfl: ASMANEX 60 METERED DOSES 220 MCG/INH inhaler, INHALE 1 DOSE BY MOUTH TWICE DAILY, Disp : 1 Inhaler, Rfl: 5 aspirin 81 MG EC tablet, Take 81 mg by mouth Daily., Disp: , Rfl: calcium, as carbonate, (CALTRATE) 600 mg tablet, Take 600 mg by mouth daily (with marcello kfast)., Disp: , Rfl: furosemide (LASIX) 40 mg tablet, Take 1 tablet by mouth Daily., Disp: 90 tablet, Rfl: 4 Green Tea, Camillia sinensis, 315 MG CAPS, Take 1 capsule by mouth Daily., Disp: , Rfl : losartan (COZAAR) 100 MG tablet, Take 100 mg by mouth nightly., Disp: , Rfl: metoprolol succinate (TOPROL-XL) 100 mg ER tablet, Take 50 mg in the morning and 100 m g at night, Disp: , Rfl: Multiple Vitamins-Minerals (ALIVE MENS ENERGY PO), Take 1 tablet by mouth Daily., Disp : , Rfl: Multiple Vitamins-Minerals (B COMPLEX PLUS VITAMIN C PO), Take 1 tablet by mouth Daily ., Disp: , Rfl: omeprazole (PRILOSEC) 20 mg capsule, Take one capsule by mouth once daily on an empty stomach, Disp: , Rfl: simvastatin (ZOCOR) 20 mg tablet, Take 1 tablet by mouth Daily., Disp: 90 tablet, Rfl: 4 umeclidinium-vilanterol (ANORO ELLIPTA) 62.5-25 mcg/puff inhaler, Inhale 1 puff into t he lungs Daily., Disp: , Rfl: Immunizations: Immunization History Administered [...] Denies urticaria and allergic rash. Objective BP 110/64 mmHg | Pulse 72 | Ht 1.829 m (6') | Wt 94.892 kg (209 lb 3.2 oz) | BMI 28.37 kg/m 2 | SpO2 96% Physical Exam Constitutional: He [...] No cyanosis. Nails show no clubbing. Data: Walking oximetry performed on 02/13/70. The patient walked thousand feet over 4 minutes. H is resting O2 saturation was 96% and appeared to johnathan at approximately 90%. Assessment 1. COPD Gold stage III. Currently treated with Anoro and Asmanex. The patient also use s albuterol via nebulizer or metered-dose inhaler as needed. Since her last clinic appointm ent furosemide has been initiated. This seemed to translate to improvement of the patient's shortness of breath. Today we discussed the benefits of regular scheduled exercise. Given wears Sierra resides it is not possible for the patient to participate in a formal pulmonary rehab program. We also discussed the benefits of purse lip breathing. 2. Hypoxemia the patient wear supplemental oxygen at 2.5 L/m while sleeping. There is n o evidence of significant oxygen desaturation with exertion. Plan 1. Initiate purse lip breathing and regular schedule exercise. 2. High-dose seasonal influenza vaccination July 2017. 3. Pulmonary clinic follow-up appointment in 12 months time. CC: Heron Garcia documented in this encounter Plan of Treatment +--------+ + + + + | Date | Type | Specialty | Care Team | Description | +--------+ + + + + | 05/24/ | Off-Site | Nephrology | Juan Paris | | | 2019 | Visit | | M, DO [address] | | | | | | [address] [facility] | | | | | | [place] [address] | | | | | | [phone] | | | | | | | | +--------+ + + + + | 07/23/ | Office | Pulmonology | Jt Roman | | | 2019 | Visit | | Tony Edwards MD [address] | | | | | [address] | | | | | | [place] [address] | | | | | | [phone] | | | | | | | | +--------+ + + + + documented as of this encounter Visit Diagnoses + + | Diagnosis | + + | COPD, severe (HCC) - Primary Chronic airway obstruction, not elsewhere classified | + + | Hypoxemia | + + documented in this encounter"
--- OUTSIDE RECORDS SUMMARY | ~2020-04-30 | XMS | Encounter Summary ---
Demographics + + + | Address | [address] | | | [place] [address] | + + + | Home Phone | | + + + | Preferred Language | Unknown | + + + | Marital Status | | + + + | Mosque Affiliation | 1013 | + + + | Race | Unknown | + + + | Ethnic Group | Unknown | + + + Author + + + | Author | [facility] | | | and [place] | + + + | Organization | [facility] | | [...] Team Providers + +------+ + | Care Technical Support Representative Name | Role | Phone | + +------+ + PCP | Unavailable | + +------+ + Encounter Details +--------+ + + + + | Date | Type | Department | Care Team | Description | +--------+ + + + + | 08/08/ | Hospital | [facility] | Juan Paris | | | 2004 - | Encounter | MED CTR MED ONC | M, DO [address] | | | | | [address] [place] | [facility] [address] | | | 08/09/ | | [place] [address] | [place] [address] | | | 2004 | | [phone] | [phone] | | | | | | | [...] [place] | | | | | | [place] [address] | | | | | | [phone] | | | | | | | | +--------+ + + + + | 07/23/ | Office | Pulmonology | Jt Roman | | | 2019 | Visit | | Tony Edwards MD [address] | | | | | [address] | | | | | | [place] [address] | | | | | | [phone] | | | | | | | | +--------+ + + + + documented as of this encounter Visit Diagnoses Not on filedocumented in this encounter"
--- OUTSIDE RECORDS SUMMARY | ~2020-04-30 | XMS | Encounter Summary ---
Demographics + + + | Address | [address] | | | [place] [address] | + + + | Home Phone | | + + + | Preferred Language | Unknown | + + + | Marital Status | | + + + | Caodaism Affiliation | 1013 | + + + | Race | Unknown | + + + | Ethnic Group | Unknown | + + + Author + + + | Author | [facility] | | | and [place] | + + + | Organization | [facility] | | | [...] Team Providers + +------+ + | Care Retail Pharmacy Technician Name | Role | Phone | + +------+ + PCP | Unavailable | + +------+ + Reason for Visit +--------+ + | Reason | Comments | +--------+ + | COPD | | +--------+ + Encounter Details +--------+---------+ + + + | Date | Type | Department | Care Team | Description | +--------+---------+ + + + | 01/10/ | Office | [facility] | Terrence Quiles | BRONCHITIS, | | 2012 | Visit | PULMONARY [address] | MD Nestor MARY KAY | OBSTRUCTIVE CHRONIC | | | | [place], | [facility], [place] | (Primary Dx); SLEEP | | | | [place] [address] | [id number] | RELATED | | | | [phone] | | HYPOVENTILATION/HYPO | | | | | | XEMIA CCE; TOBACCO | | | | | | ABUSE, HX OF; | | | | | | Nicotine addiction; | | | | | | GASTROESOPHAGEAL | | | | | | REFLUX DISEASE, HX | | | | | | OF; Needs flu shot | +--------+---------+ + + + Social History [...] | | + +---+---+---+ + + | Tobacco Cessation: Ready to Quit: No | | Comments: 1-3 daily, use to smoke [...] + | Blood Pressure | 140/80 | 10/10/2012 10:03 AM | | | | | PST | | + + + + + | Pulse | 79 | 10/10/2012 10:03 AM | | | | | PST | | + + + + + | Temperature | - | - | | + + + + + | Respiratory Rate | - | - | | + + + + + | Oxygen Saturation | 97% | 10/10/2012 10:03 AM | | | | | PST | | + + + + + | Inhaled Oxygen | - | - | | | Concentration | | | | + + + + + | Weight | 89 kg (196 lb 3.2 | 10/10/2012 10:03 AM | | | | oz) | PST | | + + + + + | Height | 181.6 cm (5' 11.5") | 10/10/2012 10:03 AM | | | | | PST | | + + + + + | Body Mass Index | 26.98 | 10/10/2012 10:03 AM | | | | | PST | | + + + + + documented in this encounter Patient Instructions Patient Instructions Terrence Quiles MD - 10/10/2012 10:44 AM PSTRestart your Asmane x - using 2 puffs once daily. Continue the Foradil inhaler. Please wear your oxygen when you sleep, as much as you can. documented in this encounter Progress Notes Terrence Quiles MD - 10/10/2012 1:30 PM PSTFormatting of this note might be differe nt from the original. Terrence Quiles MD [facility] [address] [place] [id number] 10/10/2012 Sierra Roman 1950 History: Sierra Roman is a 62 y.o. male followed for chronic obstructive pulmonary disease. He was seen initially in 2007 when he had ongoing tobacco use as well as significant occupational t oxin inhalant exposures. 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 In November 2010 he had some heavy dust exposure and developed a fairly severe airway exacerba tion. 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 For th e renal disease, he began tapering prednisone in December 2010 but developed much worse shortne ss of breath, perhaps related to the dust exposure of the month before. I saw him in 2010 w hen he was having these problems and it was clear that he had a misunderstanding about the r ole of his different medications. He was on very low dose inhaled corticosteroid which was increased. Unfortunately, he also continued smoking, but fortunately in 2011 he did stop smoking. He has done reasonably well since I last saw him although there are reasons for concern. F irst, he is now smoking about 2 cigarettes per day. He also chews tobacco. Second, he stop ped using his inhaled corticosteroid, Asmanex, about 6 months ago. He had various reasons f or stopping but it appears most likely that it was due to the fact that he does not notice a ny direct effect of daily use of this medication. He has remained very compliant with his f ormoterol inhaler. Previously he had also used Spiriva but this probably caused some urinar y retention and he is doing well off of Spiriva. Despite stopping his Asmanex, he has done fairly well. He did actually have a respiratory infection a couple of months ago and did not develop a significant lower airway exacerbation . Fortunately, his renal disease is also doing well off of medication. Mr. Roman smoked cigarettes more heavily for about 30 years which were unfiltered Camel cig arettes. He had exposure to auto body paint hardeners between the ages of 33 and 45 that andrae wyatt contributed to the airway disease. 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 He also has documented nocturnal hypoxemia and remains fairly compliant with use of nocturn al oxygen. He estimates that he is wearing his nocturnal oxygen at least every other night. He does note a little lower extremity edema. 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 zolpidem (AMBIEN) 10 mg tablet Take 1 tablet by mouth nightly as needed for Sleep. 30 tablet 4 simvastatin (ZOCOR) 20 mg tablet Take 1 tablet by mouth Daily. 30 tablet 11 [place]-3 Fatty Acids (FISH OIL) 1000 MG CAPS Take 1,000 mg by mouth 3 times daily. aspirin 81 MG EC tablet Take 81 mg by mouth Daily. omeprazole (PRILOSEC) 20 mg capsule Take one capsule by mouth once daily on an empty st omach mometasone (ASMANEX 120 METERED DOSES) 220 mcg/puff inhaler 1 dose inhaled twice daily formoterol (FORADIL AEROLIZER) 12 mcg capsule for inhaler 1 capsule inhaled twice daily Wheat Dextrin (BENEFIBER) TABS 1 tablet by mouth daily glyBURIDE (DIABETA) 2.5 mg tablet Take 2.5 mg by mouth Daily. furosemide (LASIX) 80 mg tablet one half, by mouth, daily albuterol 2.5 mg/3 mL nebulizer solution Use in nebulizer every 4 hours as needed for s hortness of breath tocopherol (GNP VITAMIN E) 400 units capsule Take 400 Units by mouth Daily. Allergies Allergen Reactions Amoxicillin Past Medical History was reviewed and updated in the electronic record. Physical Examination: BP 140/80 | Pulse 79 | Ht 1.816 m (5' 11.5") | Wt 88.996 kg (196 lb 3.2 oz) | BMI 26.98 kg/ m2 | SpO2 97% General: Pleasant, middle-aged man in no distress. HEENT: Pharyngeal airway is mildly below average sized. No thrush. Upper and lower dentur es in place. Neck: Mildly increased circumference. Lungs: Mild hyperresonance to percussion. Breath sounds mildly diminished throughout the c hest. No wheezes, crackles, rhonchi. Expiratory phase normal. Heart: Regular rate and rhythm. Extremities: No clubbing, cyanosis, or edema. Assessment: 1. BRONCHITIS, OBSTRUCTIVE CHRONIC Mr. Roman is generally doing better. His COPD is probably in the Gold stage 2-3 range. He has not needed to use prednisone since he completed a prolonged taper in June 2011. Cecil diamond discussed the role of an inhaled corticosteroid in preventing him from having a repeated a irway exacerbation. With this understanding, he is willing to resume Asmanex. To make the dosing more convenient, he may use 2 puffs once daily of Asmanex. He will continue with for moterol. 2. SLEEP RELATED HYPOVENTILATION/HYPOXEMIA CCE It is suspected that he might have mild sleep apnea but he is not interested in having this evaluated. He was encouraged to continue with nocturnal oxygen. 3. TOBACCO ABUSE, HX OF 4. Nicotine addiction He has had a mild relapse of tobacco use but tells me he is only smoking a couple of cigare ttes per day. We discussed the risk of grade or use. He is also chewing tobacco. 5. GASTROESOPHAGEAL REFLUX DISEASE, HX OF Symptoms are very well controlled on omeprazole. He did try stopping omeprazole last year but had definite return of reflux symptoms. 6. Needs flu shot Flu vaccine will be administered today. PLAN: 1. Flu vaccine today. 2. Resume Asmanex 220 mcg 2 puffs daily, rinsing throat after use. 3. Continue Foradil one capsule inhaled twice daily. 4. Smoking cessation was discussed. 5. We had an extensive discussion of the role of his medications and the importance of dylan oing use of inhaled corticosteroid. 6. Continue nocturnal oxygen. 7. Followup in one year earlier if problems. I spent 25 minutes face to face with the patient, greater than 50 % of the total time was s pent in counseling and coordination of care. Terrence Quiles Cc: Lorenzo [facility] MD documented in t his encounter Plan of Treatment +--------+ + + + + | Date | Type | Specialty | Care Team | Description | +--------+ + + + + | 05/24/ | Off-Site | Nephrology | Juan Paris | | | 2019 | Visit | | DO Nis[place] [address] | | | | | | [address] [facility] | | | | | | [place] [address] | | | | | | [phone] | | | | | | | | +--------+ + + + + | 07/23/ | Office | Pulmonology | Jt Roman | | 2019 | Visit | | Tony Edwards MD [address] | | | | | [address] | | | | | | [place] [address] | | | | | | [phone] | | | | | | | [...] | | digestive system | + + | Needs flu shot Need for prophylactic vaccination and inoculation against influenza | + + documented in this encounter
--- OUTSIDE RECORDS SUMMARY | ~2020-04-30 | XMS | Encounter Summary ---
Demographics + + + | Address | [address] | | | [place] [address] | + + + | Home Phone | | + + + | Preferred Language | Unknown | + + + | Marital Status | | + + + | Catholic Affiliation | 1013 | + + + | Race | Unknown | + + + | Ethnic Group | Unknown | + + + Author + + + | Author | [facility] | | | and [place] | + + + | Organization | [facility] | | [...] Team Providers + +------+ + | Care Sorter Laundry Articles Name | Role | Phone | + +------+ + PCP | Unavailable | + +------+ + Encounter Details +--------+ + + + + | Date | Type | Department | Care Team | Description | +--------+ + + + + | 04/27/ | Abstract | [facility] | Juan Paris | | | 2013 | | NEPHROLOGY [address] | M, DO [address] | | | | | [address] | [address] | | | | | [place] | [place] [address] | | | | | [address] | [phone] | | | | | [phone] | | | +--------+ + + + [...] [address] | | | | | | [place] [address] | | | | | | [phone] | | | | | | | | +--------+ + + + + | 07/23/ | Office | Pulmonology | Jt Roman | | | 2019 | Visit | | Tony Edwards MD [address] | | | | | [address] | | | | | | [place] [address] | | | | | | [phone] | | | | | | | | +--------+ + + + + documented as of this encounter Procedures + +--------+ + + + | Procedure Name | Priori | Date/Time | Associated Diagnosis | Comments | | | ty | | | | + +--------+ + + + | EXTERNAL LAB: CBC | Routin | 04/27/2014 | | Results for this | | | e | | | procedure are in the | | | | | | results section. | + +--------+ + + + | EXTERNAL LAB: AST | Routin | 04/27/2014 | | Results for this | | | e | | | procedure are in the | | | | | | results section. | + +--------+ + + + | EXTERNAL LAB: ALT | Routin | 04/27/2014 | | Results for this | | | e | | | procedure are in the | | | | | | results section. | + +--------+ + + + | EXTERNAL LAB: | Routin | 04/27/2014 | | Results for this | | TRIGLYCERIDES | e | | | procedure are in the | | | | | | results section. | + +--------+ + + + | EXTERNAL LAB: | Routin | 04/27/2014 | | Results for this | | CHOLESTEROL, HDL | e | | | procedure are in the | | | | | | results section. | + +--------+ + + + | EXTERNAL LAB: | Routin | 04/27/2014 | | Results for this | | CHOLESTEROL, TOTAL | e | | | procedure are in the | | | | | | results section. | + +--------+ + + + | EXTERNAL LAB: | Routin | 04/27/2014 | | Results for this | | CHOLESTEROL, LDL | e | | | procedure are in the | | | | | | results section. | + +--------+ + + + | EXTERNAL LAB: | Routin | 04/27/2014 | | Results for this | | CREATININE | e | | | procedure are in the | | | | | | results section. | + +--------+ + + + | COMPREHENSIVE | Routin | 04/27/2014 | | Results for this | | METABOLIC PANEL | e | | | procedure are in the | | | | | | results section. | + +--------+ + + + documented in this encounter Results Comprehensive Metabolic Panel (04/27/2014) + +-------+ + + + | Component | Value | Ref Range | Performed | Pathologist | | | | | At | Signature | + +-------+ + + + | Na | 142 | mmol/L | EXTERNAL | | | | | | LAB | | + +-------+ + + + | K | 4.1 | mmol/L | EXTERNAL | | | | | | LAB | | + +-------+ + + + | Cl | 108 | mmol/L | EXTERNAL | | | | | | LAB | | + +-------+ + + + | CO2 | 21 | mmol/L | EXTERNAL | | | | | | LAB | | + +-------+ + + + | Glucose | 80 | mg/dL | EXTERNAL | | | | | | LAB | | + +-------+ + + + | BUN | 15 | mg/dL | EXTERNAL | | | | | | LAB | | + +-------+ + + + | Calcium | 9.2 | mg/dL | EXTERNAL | | | | | | LAB | | + +-------+ + + + | Alkaline | 52 | U/L | EXTERNAL | | | Phosphatase | | | LAB | | + +-------+ + + + | Bilirubin | 0.8 | mg/dL | EXTERNAL | | | Total | | | LAB | | + +-------+ + + + | Albumin | 3.9 | 3.3 - 4.8 g/dL | EXTERNAL | | | | | | LAB | | + +-------+ + + + | MCV | 93.2 | fL | EXTERNAL | | | | | | LAB | | + +-------+ + + + | Phosphorus | 2.7 | 2.1 - 3.9 mg/dL | EXTERNAL | | | | | | LAB | | + [...] + +---------+ + + External Lab: CBC (04/27/2014) + +-------+ + + + | Component | Value | Ref Range | Performed | Pathologist | | | | | At | Signature | + +-------+ + + + | WBC, | 9.8 | 4.5 - 11 | EXTERNAL | | | External | | | LAB | | + +-------+ + + + | HGB, | 15.0 | 13.5 - 18 | EXTERNAL | | | External | | | LAB | | + +-------+ + + + | HCT, | 44.2 | 41 - 50 | EXTERNAL | | | External | | | LAB | | + +-------+ + + + | PLT, | 184 | 140 - 440 | EXTERNAL | [...] + +---------+ + + External Lab: AST (04/27/2014) + +--------+ + + + | Component | Value | Ref Range | Performed | Pathologist | | | | | At | Signature | + +--------+ + + + | AST, | 11 (A) | 13 - 39 | EXTERNAL | | | External | | | LAB | | + +--------+ + + + + + | Specimen [...] + +---------+ + + External Lab: ALT (04/27/2014) + +-------+ + + + | Component | Value | Ref Range | Performed | Pathologist | | | | | At | Signature | + +-------+ + + + | ALT, | 13 | 7 - 52 | EXTERNAL | [...] + +---------+ + + External Lab: Triglycerides (04/27/2014) + +-------+ + + + | Component | Value | Ref Range | Performed | Pathologist | | | | | At | Signature | + +-------+ + + + | Triglycerid | 99 | 30 - 150 | EXTERNAL | [...] +---------+ + + External Lab: Cholesterol, HDL (04/27/2014) + +-------+ + + + | Component | Value | Ref Range | Performed | Pathologist | | | | | At | Signature | + +-------+ + + + | HDL | 53.4 | 40 | EXTERNAL | | | Cholesterol | [...] +---------+ + + External Lab: Cholesterol, Total (04/27/2014) + +-------+ + + + | Component | Value | Ref Range | Performed | Pathologist | | | | | At | Signature | + +-------+ + + + | Cholesterol | 145 | 200 | EXTERNAL | | | , Total, [...] +---------+ + + External Lab: Cholesterol, LDL (04/27/2014) + +-------+ + + + | Component | Value | Ref Range | Performed | Pathologist | | | | | At | Signature | + +-------+ + + + | LDL | 72 | 100 | EXTERNAL | | | [...] + +---------+ + + External Lab: Creatinine (04/27/2014) + +-------+ + + + | Component | Value | Ref Range | Performed | Pathologist | | | | | At | Signature | + +-------+ + + + | Creatinine, | 0.98 | 0.7 - 1.25 | EXTERNAL | [...]
--- OUTSIDE RECORDS SUMMARY | ~2020-04-30 | XMS | Encounter Summary ---
Demographics + + + | Address | [address] | | | [place] [address] | + + + | Home Phone [...] Team Providers + +------+ + | Care Clinical Aide Name | Role | Phone | + +------+ + PCP | Unavailable | + +------+ + Encounter Details +--------+ + + + + | Date | Type | Department | Care Team | Description | +--------+ + + + + | 08/09/ | Orders Only | [facility] | Juan Paris | | | 2004 | | NEPHROLOGY [address] | M, DO [address] | | | | | [address] | [address] | | | | | [place] | [place] [address] | | | | | [address] | [phone] | | | | | [phone] | | | +--------+ + + + [...] [address] | | | | | | [facility] [address] | | | | | | [place] [address] | | | | | | [phone] | | | | | | | | +--------+ + + + + | 07/23/ | Office | Pulmonology | Jt Roman | | | 2019 | Visit | | Tony Edwards MD [address] | | | | | [address] | | | | | | [place] [address] | | | | | | [phone] | | | | | | | | +--------+ + + + + documented as of this encounter Procedures + +--------+ + + + | Procedure Name | Priori | Date/Time | Associated Diagnosis | Comments | | | ty | | | | + +--------+ + + + | SURGICAL PATHOLOGY | Routin | 08/09/2005 | | Results for this | | EXAM | e | 12:00 AM | | procedure are in the | | | | PST | | results section. | + +--------+ + + + documented in this encounter Results Surgical Pathology Exam (08/09/2005 12:00 AM PST) + + | Specimen | + + | | + + + + + | Narrative | Performed At | + + + | SURGICAL PATHOLOGY REPORT | [facility] | | Date Taken: 08/09/2005 Date Received: | | | 08/09/2005 Completed: 08/09/2005 Physician: Juan Paris Copy | | | to: DIAGNOSIS: Needle renal biopsy: 1. 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 See comment. 2. | | | Tubulointerstitium with no significant abnormality. | | | 3. Mild arteriolosclerosis and mild arteriosclerosis. | | | 0 COMMENT: Confirmatory electron microscopy is pending. | | | Mart Wilhelm M.D. Electronic signature GROSS DESCRIPTION: | | | Three specimens are received; each identified as "right kidney". | | | The specimen received in formalin consists of a 1.6 cm in length | | | core of tissue submitted for light microscopy. The specimen | | | received in glutaraldehyde consists of a 0.5 cm in length core of | | | tissue submitted for electron microscopy. The specimen received | | | in Lincoln solution consists of a 0.7 cm in length core of tissue | | | submitted for immunofluorescence studies. (MS) | | | MICROSCOPIC DESCRIPTION: The multiple level sections reveal a core | | | of renal medulla and cortex with a total of approximately thirteen | | | glomeruli, no of which is completely sclerosed (8% vs predicted for | | | age 18%). The normal glomerular capillary loop architecture is | | | preserved. No significant mesangial sclerosis or cell proliferation | | | is evident. The capillary basement membranes appear of normal | | | thickness, and the capillary lumens generally remain open and empty. | | | Special stains fail to reveal definite epimembranous basement | | | membrane spikes or eosinophilic immune deposits. No glomerular | | | exudative inflammation, fibrinoid necrosis or fibroepithelial | | | crescents are encountered. The globally sclerosed glomerulus | | | exhibits complete collapse and consolidation of the capillary loops | | | with bland hyaliniosis of Richardson's space. The tubulointerstitium is | | | also well preserved. No significant fibrosis, tubular atrophy, or | | | inflammation is seen. Mild arteriolosclerosis and arteriosclerosis | | | are present. Special stains for amyloid are negative. | | | IMMUNOFLUORESCENCE MICROSCOPY: The Lincoln fixed tissue is frozen | | | sectioned and stained for IgG, IgM, IgA, C3, C1q, kappa, lambda, | | | fibrinogen and albumin by the immunofluorescence technique. Survey | | | examination reveals six glomeruli, none of which is completely | | | sclerosed. Positive, coarsely granular immunofluorescence is | | | demonstrated diffusely within the glomeruli in a peripheral capillary | | | basement membrane distribution for IgG (2-3+), IgM (1+) and C1q | | | (trace). No immunoglobulin light chain restriction to kappa (2+) or | | | lambda (2+) is demonstrated. Scattered tubular casts stain for | | | IgA, and occasional tubular basement membranes and vessel stark are | | | positive for C3. 1: 67110, 43699, 90692, 15504, 71287, | | | 23190, 55754(b)(9), 30783 | | | PROCEDURES/ADDENDA ELECTRON MICROSCOPY DIAGNOSIS: Kidney | | | needle biopsy: Membranous glomerulopathy, Stage II-III. See | | | comment 0 db 08/11/05 COMMENT: Ultrastructurally, the immune | | | complex deposits are often partially to completely embedded within | | | the capillary basement membranes and occasionally show partial | | | electron lucency, consistent with Stage II-III. No definite | | | mesangial immune complex deposits are identified, mitigating against | | | a secondary membranous glomerulopathy. However, clinical | | | correlation is required. DISCUSSION: The glutaraldehyde fixed | | | tissue is post fixed in osmium tetroxide, dehydrated, and embedded in | | | epon. One micron thick sections are stained with Holloway's | | | stain for light microscopic survey, and ultrathin sections are | | | stained with uranyl acetate-lead citrate for electron microscopy. | | | Survey examination of multiple one micron thick sections from the | | | three tissue blocks reveals renal cortex with a total of 5 glomeruli, | | | none of which is completely sclerosed. The normal glomerular | | | capillary loop architecture is preserved. No significant mesangial | | | sclerosis or cell proliferation is evident. The capillary basement | | | membranes exhibit irregular, mild thickening, while the capillary | | | lumens remain open and empty. No glomerular exudative inflammation, | | | fibrinoid necrosis, or fibroepithelial crescents are encountered. | | | The tubulointerstitial compartment shows no fibrosis, tubular | | | atrophy or inflammation. Mild arteriolosclerosis is noted. Two of | | | the glomeruli are selected for electron microscopy. | | | Ultrastructurally, the preservation of the normal glomerular | | | capillary loop architecture is confirmed. No significant mesangial | | | sclerosis or cell proliferation is evident. The capillary basement | | | membranes exhibit irregular, mild thickening with occasional mild | | | perimesangial wrinkling. Small, medium electron dense, immune-type | | | deposits are noted along the subepithelial aspect of the capillary | | | basement membranes and are often partially to completely embedded | | | within the membrane. Occasionally, these deposits show a granular, | | | electron lucent character, consistent with partial dissolution. No | | | mesangial or subendothelial deposits are encountered. No | | | paracrystalline substructure is evident. The capillary lumens are | | | often partially filled by artifactually swollen endometrium. No | | | endothelial tubuloreticular inclusions are identified. The | | | epithelial cells are mildly hyperplastic with focal microvillous | | | transformation and exhibit mild partial foot process obliteration | | | involving about 15-20% of the foot processes. Mart Wilhelm, | | | [place] [address] [address] [phone] | | | [phone] or Testing performed at: [place] | | | [facility] Geo Vazquez M.D., | | | Director [address] [place] [address] [address] [place] [address] Phone: | | | | | + + + + + + + + | Performing | Address | City/State/Zipcode | Phone Number | | Organization | | | | + + + + + | [facility] | [address] [place] | [place] [address] | | | [facility] | | | | | LABORATORY | | | | + + + + + | [facility] | | | | + + + + + documented in this encounter Visit Diagnoses Not on filedocumented in this encounter
--- OUTSIDE RECORDS SUMMARY | ~2020-04-30 | XMS | Encounter Summary ---
Demographics + + + | Address | [address] | | | [place] [address] | + + + | Home Phone | | + + + | Preferred Language | Unknown | + + + | Marital Status | | + + + | Sikhism Affiliation | 1013 | + + + | Race | Unknown | + + + | Ethnic Group | Unknown | + + + Author + + + | Author | Located Within [facility] | | | and [place] | + + + | Organization | Located Within [facility] | | [...] Team Providers + +------+ + | Care Coal Trimmer Machine Operator Name | Role | Phone [...] Closed | | Nephrology | Diagnoses | Sitz, | [place], | | | | | Nephritis | Heron | Juan Nielson DO | | | | | and | MD Rico | [address] | | | | | nephropathy, | [address] | | | | | not | [place] | [address] | | | | | specified as | [address] | [place], | | | | | acute or | [place], | [place] [address] | | | | | chronic, | [place] | Phone: | | | | | with lesion | [phone] | [phone] | | | | | of | Phone: | Fax: | | | | | membranous | [phone] | [phone] | | | | | glomerulonep | Fax: | | | | | | hritis | [phone] | | | | | | Unspecified | | | | | | | hypertensive | | | | | | | kidney | | | | | | | disease with | | | | | | | chronic | | | | | | | kidney | | | | | | | disease | | | | | | | stage I | | | | | | | through | | | | | | | stage IV, or | | | | | | | | | | | | | | unspecified( | | | | | | | 403.90) | | | | | | | Procedures | | | | | | | [place] OFFICE | | | | | | | OUTPATIENT | | | | | | | VISIT 25 | | | | | | | MINUTES | | | +--------+--------+ + + + + Encounter Details +--------+ + + + + | Date | Type | Department | Care Team | Description | +--------+ + + + + | 03/20/ | Off-Site | [facility] [place] | Juan Paris | 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 | Visit | NEPHROLOGY [address] | M, DO [address] | glomerulonephritis | | | | [address] | [address] [place] | (Primary Dx); | | | | [place], [place] | [place] [address] | Essential | | | | [address] | [phone] | hypertension, | | | | [phone] | | benign; Mixed | | | | | | hyperlipidemia; | | | | | | COPD, severe (HCC) | +--------+ + + + + Social [...] + + + | Blood Pressure | 132/76 | 03/20/2016 5:55 PM | | | | | PDT | | + + + + + | Pulse | - | - | | + + + + + | Temperature | 36.6 C (97.8 F) | 03/20/2016 5:55 PM | | | | | PDT [...] | 93.6 kg (206 lb 5.6 | 03/20/2016 5:55 PM | | | | oz) | PDT | | + + + + + | Height | - | - | | + + + + + | Body Mass Index | 29.61 | 10/14/2015 11:14 AM | | | | | PST | | + + + + + documented in this encounter Progress Notes Juan Paris DO - 03/20/2016 1:54 PM PDT Subjective: NEPHROLOGY Patient ID: Sierra Roman is a 65 y.o. male. HPI Comments: Followup for this 65 YO white male with Bx proven, relapse of membranous GN, who is stat us post 6 months prednisone/12 months mycophenolate, in 2004, hyperlipidemia, steroid-induc ed Type II DM, remote history of diverticulitis, and COPD. He had a negative CT of chest, except for COPD changes, with contrast, on 02/23, negative co lonoscopy in the last 2 years, and CT of abd., with and w/o contrast, on 03/13 which was neg ative for lymphadenopathy, or renal mass. It did show evidence of cholelithiasis and previou s renal cysts, which may have been innocently mistaken for a mass on a study 1 year ago. He has had his 1st dose of Rituximab 1g, IVPB on 03/14/16, which he states that he tolerated fa rily well except for some minor chills at the end. He has noticed some persistent mild, ank le edema which he takes lasix for. Denies any hematuria. Outpatient Prescriptions Marked as Taking for the 03/20/16 encounter (Off-Site Visit) with Nisreen Paris DO [...] TABS Take 1 tablet by mouth Daily. finasteride (PROSCAR) 5 mg tablet Take 5 mg by mouth Daily. furosemide (LASIX) 40 mg tablet Take 0.5 tablets by mouth 2 times daily. 90 tablet 4 losartan (COZAAR) 100 MG tablet Take 100 mg by mouth nightly. metoprolol succinate (TOPROL-XL) 50 mg 24 hr tablet 50 mg, AM and 100 mg, PM. Misc Natural Products (MIDNITE) CHEW Take by mouth. Multiple Vitamins-Minerals (ALIVE MENS ENERGY PO) Take [...] Allergen Reactions Amoxicillin Rash Objective: Blood pressure 132/76, temperature 36.6 C (97.8 F), weight 93.6 kg (206 lb 5 .6 oz). Physical Exam Heart: Regular rate and rhythm with no S3, S4, murmur or rub. Lungs: Decreased breath sounds bilaterally, no rales or wheezes. Abdomen: Soft, flat, nontender, normoactive bowel sounds. Extremities: 1+ ankle edema, no clubbing, no rash; Lab Results Component Value Date NAEX 138 03/17/2016 KEX 4.1 03/17/2016 CLEX 102 03/17/2016 CO2EX 30 03/17/2016 BUNEX 19 03/17/2016 CREEX 0.99 03/17/2016 EGFREX 76 03/17/2016 GLUEX 156* 03/17/2016 PHOSEX 4.5 03/17/2016 PHA1VOB 6.1 12/22/2015 Lab Results Component Value Date WBCEX 10.6 01/03/2016 HGBEX 14.5 01/03/2016 HCTEX 44.2 01/03/2016 PLTEX 239 01/03/2016 Lab Results Component Value Date CRCLEARANCE 64.0* 03/17/2016 PROTEX 5369 03/17/2016 Assessment: 1. 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 No obvious evidence of a solid tumor, on some initial imaging and screening. However, he is a former smoker. 2. Hypertension--good control. 3. Hyperlipidemia--on statin Rx. 4. Steroid-induced Type II DM-- stable. 5. COPD--stable on inhaled BD's. Plan: 1. As per the regimen, outlined by Dr. Pope, will give him a 2nd dose of Rituximab on 03/27 , then, again in 6 months. 2. Will continue to follow his BP, and CV risk factors. Sierra and his ,do state that maria guadalupe diamond is making a sincere effort to DC his smoking. Additionally, he has apparently been using smoking "smokeless tobacco" and swallowing his s aliva, which I believe may some additional daily Na+ load. I had a dayton discussion with Angle leyva that this is not in his best interest, and he would be better served by expectorating t he substance, or abstaining from this altogether. 3. Will plan to see him back in 2 mo. at the [facility], at [place], [place]. He mauro l have a CBC, CMP, P04, PTH, lipid profile and 24-hour urine collection one week prior to t hat. Again, I greatly Appreciate Dr. Sandi Pope's assistance with his work up, and tr eatment plan. : Rico Garcia M.D., [place] Pope MD, [facility], Nephrology Section, [facility], [place], W A [place] Chester MD, Urology, [place] [facility] documented in this encounter Plan of Treatment +--------+ + + + + | Date | Type | Specialty | Care Team | Description | +--------+ + + + + | 05/24/ | Off-Site | Nephrology | Juan Paris | | | 2019 | Visit | | DO Nisreen [address] | | | | | | [address] [facility] | | | | | | [place] [address] | | | | | | [phone] | | | | | | | | +--------+ + + + + | 07/23/ | Office | Pulmonology | Jt Roman | | | 2019 | Visit | | Tony Edwards MD [address] | | | [address] | | | | | | [place] [address] | | | | | | [phone] | | | | | | | | +--------+ + + + + documented as of this encounter Procedures + +--------+ + + + | Procedure Name | Priori | Date/Time | Associated Diagnosis | Comments | | | ty | | | | + +--------+ + + + | LABS - EXTERNAL SCAN | | 05/15/2016 | | Results for this | | | | 12:00 AM | | procedure are in the | | | | PDT | | results section. | + +--------+ + + + documented in this encounter Results LABS - EXTERNAL SCAN (05/15/2016 12:00 AM PDT) + + + | [...] | Mixed hyperlipidemia | + + | COPD, severe (HCC) Chronic airway obstruction, not elsewhere classified | + + documented in this encounter
--- OUTSIDE RECORDS SUMMARY | ~2020-04-30 | XMS | Encounter Summary ---
Demographics + + + | Address | [address] | | | [place] [address] | + + + | Home Phone | | + + + | Preferred Language | Unknown | + + + | Marital Status | | + + + | Methodist Affiliation | 1013 | + + + | Race | Unknown | + + + | Ethnic Group | Unknown | + + + Author + + + | Author | [facility] | | | and [place] | + + + | Organization | [facility] | | | [...] Team Providers + +------+ + | Care Spa Supervisor Name | Role | Phone | + +------+ + PCP | Unavailable | + +------+ + Encounter Details +--------+ + + + + | Date | Type | Department | Care Team | Description | +--------+ + + + + | 01/16/ | Hospital | [facility] | Terrence Quiles | | | 2010 | Encounter | MED CTR GENERIC OP | MD [place] [address] | | | | | CONV DEPT [address] | [place], [place] | | | | | [place], | [address] | | | | | [place] [address] | | | | | | [phone] | | | +--------+ + + + [...] + + documented as of this encounter Miscellaneous Notes Pulmonary Function - Terrence Quiles MD - 01/16/2011 11:57 AM PDTDATE: 01/16/2011 PULMONARY FUNCTION TEST SPIROMETRY: FEV1 is severely reduced at 1.23 L, or 31% of predicted. FVC is mildly reduced at 3.82 L or 75% of predicted. FEV1 to FVC ratio is severely reduced at 32%. COMPARISON TO PRIOR TESTING: Above data were compared to previous pulmonary function tests performed in this laboratory approximately 13 months earlier on 12/17/2009. FEV1 has decli ezra from 1. 89 to 1.23 L. FVC is minimally changed having declined slightly from 4.0 to 3.82 L. FEV1 to FVC r atio is de clined substantially from 47% to 32%. IMPRESSION: Severe airflow obstruction is present. Compared to testing performed 13 months earlier, there has been a significant worsening of airflow obstruction. DICTATED BY: Terrence Quiles MD Pulmonary / Critical Care JOB #: [id number] EXT JOB #:[id number] <Electronicall y Signed by Terrence Quiles MD> 01/21/11 0756 documented in th is encounter Plan of Treatment +--------+ + + + + | Date | Type | Specialty | Care Team | Description | +--------+ + + + + | 05/24/ | Off-Site | Nephrology | Juan Paris | | | 2019 | Visit | | M, DO [address] | | | | | | [place] | | | | | | [place] [address] | | | | | | [phone] | | | | | | | | +--------+ + + + + | 07/23/ | Office | Pulmonology | Jt Roman | | | 2020 | Visit | | Tony Edwards MD [address] | | | | | [address] | | | | | | [place] [address] | | | | | | [phone] | | | | | | | | +--------+ + + + + documented as of this encounter Visit Diagnoses Not on filedocumented in this encounter"
--- OUTSIDE RECORDS SUMMARY | ~2020-04-30 | XMS | Encounter Summary ---
Demographics + + + | Address | [address] | | | [place] [address] | + + + | Home Phone | | + + + | Preferred Language | Unknown | + + + | Marital Status | | + + + | Yarsanism Affiliation | 1013 | + + + | Race | Unknown | + + + | Ethnic Group | Unknown | + + + Author + + + | Author | [facility] | | | and [place] | + + + | Organization | [facility] | | | and [...] Team Providers + +------+ + | Care Representative Phlebotomy Services Name | Role | Phone | + [...] | | | | | not | [place] | [address] | | | | | specified as | [address] | [place], | | | | | acute or | [place], | [place] [address] | | | | | chronic, | [place] | Phone: | | | | | with lesion | [phone] | [phone] | | | | | of | Phone: | Fax: | | | | | membranous | [phone] | [phone] | | | | | glomerulonep | Fax: | | | | | | hritis | [phone] | | | | | | Procedures | | | | | | | [place] OFFICE | | | | | | | OUTPATIENT | | | | | | | VISIT 25 | | | | | | | MINUTES | | | | | | | Evaluate & | | | | | | | treat | | | +--------+--------+ + + + + Encounter Details +--------+ + + + + | Date | Type | Department | Care Team | Description | +--------+ + + + + | 05/04/ | Off-Site | [facility] | Juan Pairs | Chronic kidney | | 2013 | Visit | NEPHROLOGY [address] | M, DO [address] | disease, stage I | | | | [address] | [address] [place] | (Primary Dx); | | | | [place], [place] | [place] [address] | Unspecified | | | | [address] | [phone] | hypertensive kidney | | | | [phone] | | disease with chronic | | | | | | kidney disease | | | | | | stage I through | | | | | | stage IV, or | | | | | | unspecified(403.90); | | | | | | Hyperlipidemia; | | | | | | MEMBRANOUS | | | | | | GLOMERULONEPHRITIS | +--------+ + + + + Social [...] + + + | Blood Pressure | 140/70 | 05/04/2014 4:11 PM | | | | | PDT | | + + + + + | Pulse | - | - | | + + + + + | Temperature | 36.8 C (98.2 F) | 05/04/2014 4:11 PM | | | | | PDT [...] + + + + | Weight | 84.6 kg (186 lb 8.2 | 05/04/2014 4:11 PM | | | | oz) | PDT | | + + + + + | Height | - | - | | + + + + + | Body Mass Index | 26.2 | 12/22/2013 9:06 AM | | | | | PDT | | + + + + + documented in this encounter Progress Notes Juan Paris DO - 05/04/2014 4:36 PM PDT Subjective: Patient ID: Sierra Roman is a 63 y.o. male. HPI Comments: Followup for this 63 YO white male with biopsy-proven membranous GN, who is status post 6 months prednisone/12 months mycophenolate, in 2004, hyperlipidemia, steroid-induced Type I I DM, remote history of diverticulitis, prediabetes, and COPD. 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 Denies foamy urine, edema, hematuria, or new complaints. H lobo is still smoking despite advice to quit. Outpatient Prescriptions Marked as Taking for the 05/04/14 encounter (Off-Site Visit) with [place] Paris DO Medication Sig Dispense Refill albuterol [...] tablet Take 50 mg by mouth Daily. [DISCONTINUED] Harvard-3 Fatty Acids (FISH OIL) 1200 MG CAPS Take 1 capsule by mouth 3 ti mes daily. omeprazole (PRILOSEC) 20 mg capsule Take one capsule by mouth once daily on an empty st omach simvastatin (ZOCOR) 20 mg tablet Take 1 tablet by mouth Daily. 30 tablet 11 zolpidem (AMBIEN) 10 mg tablet Take 1 tablet by mouth nightly as needed for Sleep. 30 tablet 4 Allergies Allergen Reactions Amoxicillin Objective: Blood pressure 140/70, temperature 36.8 C (98.2 F), weight 84.6 kg (186 lb 8 .2 oz). Physical Exam Heart: Regular rate and rhythm with no S3, S4, murmur or rub. Lungs: Decreased breath sounds bilaterally, no rales or wheezes. Abdomen: Soft, flat, nontender, normoactive bowel sounds. Extremities: No clubbing, cyanosis, or edema. Lab Results Component Value Date NA 142 04/27/2014 K 4.1 04/27/2014 CL 108 04/27/2014 CO2 21 04/27/2014 BUN 15 04/27/2014 CREEX 0.98 04/27/2014 EGFREX 77 04/27/2014 GLU 80 04/27/2014 CALCIUM 9.2 04/27/2014 PHOS 2.7 04/27/2014 PTH 9.5 03/04/2013 Lab Results Component Value Date CHOLEX 145 04/27/2014 HDLEX 53.4 04/27/2014 LDLEX 72 04/27/2014 TRIGEX 99 04/27/2014 Lab Results Component Value Date WBCEX 9.8 04/27/2014 HGBEX 15.0 04/27/2014 HCTEX 44.2 04/27/2014 PLTEX 184 04/27/2014 24 Hour urine: Ccr = 82 ml/min., Protein = 910 mg/ 24 Hrs. Assessment: 1. CKD stage II secondary to biopsy-proven membranous GN--still with some proteinuria, alt pravin, his Scr is stable. 2. Hypertension--stable. 3. Hyperlipidemia--good control. 4. Steroid-induced type II DM--in remission. 5. COPD--stable. Plan: 1. I discussed with Sierra that his stable BP, and stable Scr are good prognostic signs. 2. I discussed that there is modest increase in his proteinuria, but little other Rx indic ated at this point. 3. I encourage him to DC all smoking, as Dr. Quiles has in the past. 4. Will plan to see him back in 1 year with a CBC, CMP, PO4, lipid profile, and 24 hr urin e 1 week prior to that. He is to call if any edema should recur. 5. Will continue the lisinopril for its renoprotective effect. CC: Rico Garcia M.D., [place] Quiles MD documented in thi s encounter Plan of Treatment +--------+ + + [...] PB | | | | | | [place] [address] | | | | | | [phone] | | | | | | | | +--------+ + + + + | 07/23/ | Office | Pulmonology | Jt Roman | | | 2019 | Visit | | Tony Edwards MD [address] | | | | | [address] | | | | | | [place] [address] | | | | | | [phone] | | | | | | | | +--------+ + + + + documented as of this encounter Visit Diagnoses + + | Diagnosis | + + | Chronic kidney disease, stage I - Primary Chronic kidney disease, Stage I | + + | Unspecified hypertensive kidney disease with chronic kidney disease stage I through | | stage IV, or unspecified(403.90) Unspecified hypertensive kidney disease with chronic | | kidney disease stage I through stage IV, or unspecified | + + | Hyperlipidemia Other and unspecified hyperlipidemia | + + | MEMBRANOUS GLOMERULONEPHRITIS Nephritis and nephropathy, 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
--- OUTSIDE RECORDS SUMMARY | ~2020-04-30 | XMS | Encounter Summary ---
Demographics + + + | Address | [address] | | | [place] [address] | + + + | Home Phone [...] Team Providers + +------+ + | Care Pathology Tech Name | Role | Phone | + +------+ + PCP | Unavailable | + +------+ + Encounter Details +--------+ + + + + | Date | Type | Department | Care Team | Description | +--------+ + + + + | 04/13/ | Abstract | [facility] | [facility] | | | 2015 | | NEPHROLOGY [address] | M, DO [address] | | | | | [address] | [address] | | | | | [place] | [place] [address] | | | | | [address] | [phone] | | | | | [phone] | | | +--------+ + + + [...] PB | | | | | | [place] [address] | | | | | | [phone] | | | | | | | | +--------+ + + + + | 07/23/ | Office | Pulmonology | [facility] | | | 2019 | Visit | | Tony Edwards MD [address] | | | | | [address] | | | | | | [place] [address] | | | | | | [phone] | | | | | | | | +--------+ + + + + documented as of this encounter Procedures + +--------+ + + + | Procedure Name | Priori | Date/Time | Associated Diagnosis | Comments | | | ty | | | | + +--------+ + + + | EXTERNAL LAB: PTT | Routin | 04/12/2016 | | Results for this | | | e | | | procedure are in the | | | | | | results section. | + +--------+ + + + | EXTERNAL LAB: BUN | Routin | 04/12/2016 | | Results for this | | | e | | | procedure are in the | | | | | | results section. | + +--------+ + + + | EXTERNAL LAB: | Routin | 04/12/2016 | | Results for this | | GLUCOSE | e | | | procedure are in the | | | | | | results section. | + +--------+ + + + | EXTERNAL LAB: ALT | Routin | 04/12/2016 | | Results for this | | | e | | | procedure are in the | | | | | | results section. | + +--------+ + + + | EXTERNAL LAB: AST | Routin | 04/12/2016 | | Results for this | | | e | | | procedure are in the | | | | | | results section. | + +--------+ + + + | EXTERNAL LAB: | Routin | 04/12/2016 | | Results for this | | ALKALINE PHOSPHATASE | e | | | procedure are in the | | | | | | results section. | + +--------+ + + + | EXTERNAL LAB: | Routin | 04/12/2016 | | Results for this | | BILIRUBIN, TOTAL | e | | | procedure are in the | | | | | | results section. | + +--------+ + + + | EXTERNAL LAB: | Routin | 04/12/2016 | | Results for this | | ALBUMIN | e | | | procedure are in the | | | | | | results section. | + +--------+ + + + | EXTERNAL LAB: | Routin | 04/12/2016 | | Results for this | | PROTEIN, TOTAL | e | | | procedure are in the | | | | | | results section. | + +--------+ + + + | EXTERNAL LAB: | Routin | 04/12/2016 | | Results for this | | PHOSPHORUS | e | | | procedure are in the | | | | | | results section. | + +--------+ + + + | EXTERNAL LAB: | Routin | 04/12/2016 | | Results for this | | CALCIUM | e | | | procedure are in the | | | | | | results section. | + +--------+ + + + | EXTERNAL LAB: CARBON | Routin | 04/12/2016 | | Results for this | | DIOXIDE | e | | | procedure are in the | | | | | | results section. | + +--------+ + + + | EXTERNAL LAB: | Routin | 04/12/2016 | | Results for this | | CHLORIDE | e | | | procedure are in the | | | | | | results section. | + +--------+ + + + | EXTERNAL LAB: | Routin | 04/12/2016 | | Results for this | | POTASSIUM | e | | | procedure are in the | | | | | | results section. | + +--------+ + + + | EXTERNAL LAB: SODIUM | Routin | 04/12/2016 | | Results for this | | | e | | | procedure are in the | | | | | | results section. | + +--------+ + + + | EXTERNAL LAB: CBC | Routin | 04/12/2016 | | Results for this | | | e | | | procedure are in the | | | | | | results section. | + +--------+ + + + | EXTERNAL LAB: | Routin | 04/12/2016 | | Results for this | | PROTIME INR | e | | | procedure are in the | | | | | | results section. | + +--------+ + + + | EXTERNAL LAB: EGFR | Routin | 04/12/2016 | | Results for this | | | e | | | procedure are in the | | | | | | results section. | + +--------+ + + + | EXTERNAL LAB: | Routin | 04/12/2016 | | Results for this | | CREATININE | e | | | procedure are in the | | | | | | results section. | + +--------+ + + + documented in this encounter Results External Lab: PTT (04/12/2016) + +-------+ + + + | Component | Value | Ref Range | Performed | Pathologist | | | | | At | Signature | + +-------+ + + + | PTT, | 32.9 | 22.9 - 41.3 | EXTERNAL | | | External | [...] | + +---------+ + + External Lab: BUN (04/12/2016) + +-------+ + + + | Component | Value | Ref Range | Performed | Pathologist | | | | | At | Signature | + +-------+ + + + | BUN, | 22 | 6 - 23 | EXTERNAL | [...] + +---------+ + + External Lab: Glucose (04/12/2016) + +---------+ + + + | Component | Value | Ref Range | Performed | Pathologist | | | | | At | Signature | + +---------+ + + + | Glucose, | 177 (A) | 70 - 100 | EXTERNAL [...] + +---------+ + + External Lab: ALT (04/12/2016) + +-------+ + + + | Component [...] + +---------+ + + External Lab: AST (04/12/2016) + +-------+ + + + | Component | Value | Ref Range | Performed | Pathologist | | | | | At | Signature | + +-------+ + + + | AST, | 13 | 13 - 39 | EXTERNAL | [...] +---------+ + + External Lab: Alkaline Phosphatase (04/12/2016) + +-------+ + + + | Component | Value | Ref Range | Performed | Pathologist | | | | | At | Signature | + +-------+ + + + | ALP, | 76 | 30 - 128 | EXTERNAL | [...] +---------+ + + External Lab: Bilirubin, Total (04/12/2016) + +-------+ + + + | Component [...] + +---------+ + + External Lab: Albumin (04/12/2016) + +-------+ + + + | Component | Value | Ref Range | Performed | Pathologist | | | | | At | Signature | + +-------+ + + + | Albumin, | 3.5 | 3.5 - 5.5 | EXTERNAL | | | External | [...] +---------+ + + External Lab: Protein, Total (04/12/2016) + +---------+ + + + | Component [...] + +---------+ + + External Lab: Phosphorus (04/12/2016) + +-------+ + + + | Component | Value | Ref Range | Performed | Pathologist | | | | | At | Signature | + +-------+ + + + | Phosphorus, | 3.5 | 2.5 - 5 | EXTERNAL | [...] + +---------+ + + External Lab: Calcium (04/12/2016) + +-------+ + + + | Component | Value | Ref Range | Performed | Pathologist | | | | | At | Signature | + +-------+ + + + | Calcium, | 9.1 | 8.4 - 10.2 | EXTERNAL | [...] +---------+ + + External Lab: Carbon Dioxide (04/12/2016) + +-------+ + + + | Component | Value | Ref Range | Performed | Pathologist | | | | | At | Signature | + +-------+ + + + | Carbon | 25 | 19 - 31 | EXTERNAL | [...] + +---------+ + + External Lab: Chloride (04/12/2016) + +-------+ + + + | Component | Value | Ref Range | Performed | Pathologist | | | | | At | Signature | + +-------+ + + + | Chloride, | 103 | 95 - 112 | EXTERNAL | [...] + +---------+ + + External Lab: Potassium (04/12/2016) + +-------+ + + + | Component [...] + +---------+ + + External Lab: Sodium (04/12/2016) + +-------+ + + + | Component | Value | Ref Range | Performed | Pathologist | | | | | At | Signature | + +-------+ + + + | Sodium, | 139 | 132 - 143 | EXTERNAL | [...] | + +---------+ + + External Lab: MINE (04/12/2016) + + + + + + | Component | Value | Ref Range | Performed | Pathologist | | | | | At | Signature | + + + + + + | WBC, | 12.7 (A) | 4.5 - 11 | EXTERNAL | | | External | | | LAB | | + + + + + + | HGB, | 13.5 | 13.5 - 18 | EXTERNAL | | | External | | | LAB | | + + + + + + | HCT, | 40 (A) | 41 - 50 | EXTERNAL | | | External | | | LAB | | + + + + + + | PLT, | 242 | 140 - 440 | EXTERNAL | | | External | | | LAB | | + + + + + + | RBC, | 4.35 | 4.3 - 5.7 | EXTERNAL | | | External | | | LAB | | + + + + + + | MCV, | 92 | 81 - 99 | EXTERNAL | | | External | | | LAB | | + + + + + + | RDW, | 13.8 | 10.5 - 15 | EXTERNAL | [...] | + +---------+ + + External Lab: Protime INR (04/12/2016) + +-------+ + + + | Component | Value | Ref Range | Performed | Pathologist | | | | | At | Signature | + +-------+ + + + | INR, | 1.0 | | EXTERNAL | | | External | | | LAB | | + +-------+ + + + | PT, | 13.7 | | EXTERNAL | | | External [...] + +---------+ + + External Lab: eGFR (04/12/2016) + +-------+ + + + | Component | Value | Ref Range | Performed | Pathologist | | | | | At | Signature | + +-------+ + + + | eGFR, | 55 | | EXTERNAL | | | External [...] + +---------+ + + External Lab: Creatinine (04/12/2016) + + + + + + | Component | Value | Ref Range | Performed | Pathologist | | | | | At | Signature | + + + + + + | Creatinine, | 1.31 (A) | 0.7 - 1.25 | EXTERNAL | [...]
--- OUTSIDE RECORDS SUMMARY | ~2020-04-30 | XMS | Encounter Summary ---
Demographics + + + | Address | [address] | | | [place] [address] | + + + | Home Phone | | + + + | Preferred Language | Unknown | + + + | Marital Status | | + + + | Hinduism Affiliation | 1013 | + + + | Race | Unknown | + + + | Ethnic Group | Unknown | + + + Author + + + | Author | [facility] | | | and [place] | + + + | Organization | [facility] | | | [...] Team Providers + +------+ + | Care Pv Design Engineer Name | Role | Phone | + +------+ + PCP | Unavailable | + +------+ + Encounter Details +--------+ + + + + | Date | Type | Department | Care Team | Description | +--------+ + + + + | 09/20/ | Abstract | [facility] | Juan Paris | | | 2014 | | NEPHROLOGY [address] | M, DO [address] | | | | | [address] | [address] | | | | | [place] | [place] [address] | | | | | [address] | [phone] | | | | | [phone] | | | +--------+ + + + [...] [place] | | | | | | [place] [address] | | | | | | [phone] | | | | | | | | +--------+ + + + + | 07/23/ | Office | Pulmonology | Jt Roman | | | 2019 | Visit | | Tony Edwarsd MD [address] | | | | | | [address] | | | | | | [place] [address] | | | | | | [phone] | | | | | | | | +--------+ + + + + documented as of this encounter Procedures + +--------+ + + + | Procedure Name | Priori | Date/Time | Associated Diagnosis | Comments | | | ty | | | | + +--------+ + + + | EXTERNAL LAB: BUN | Routin | 09/20/2015 | | Results for this | | | e | | | procedure are in the | | | | | | results section. | + +--------+ + + + | EXTERNAL LAB: | Routin | 09/20/2015 | | Results for this | | GLUCOSE | e | | | procedure are in the | | | | | | results section. | + +--------+ + + + | EXTERNAL LAB: | Routin | 09/20/2015 | | Results for this | | ALBUMIN | e | | | procedure are in the | | | | | | results section. | + +--------+ + + + | EXTERNAL LAB: | Routin | 09/20/2015 | | Results for this | | PROTEIN, TOTAL | e | | | procedure are in the | | | | | | results section. | + +--------+ + + + | EXTERNAL LAB: CARBON | Routin | 09/20/2015 | | Results for this | | DIOXIDE | e | | | procedure are in the | | | | | | results section. | + +--------+ + + + | EXTERNAL LAB: | Routin | 09/20/2015 | | Results for this | | CHLORIDE | e | | | procedure are in the | | | | | | results section. | + +--------+ + + + | EXTERNAL LAB: | Routin | 09/20/2015 | | Results for this | | POTASSIUM | e | | | procedure are in the | | | | | | results section. | + +--------+ + + + | EXTERNAL LAB: SODIUM | Routin | 09/20/2015 | | Results for this | | | e | | | procedure are in the | | | | | | results section. | + +--------+ + + + | EXTERNAL LAB: | Routin | 09/20/2015 | | Results for this | | URINALYSIS | e | | | procedure are in the | | | | | | results section. | + +--------+ + + + | EXTERNAL LAB: CBC | Routin | 09/20/2015 | | Results for this | | | e | | | procedure are in the | | | | | | results section. | + +--------+ + + + | EXTERNAL LAB: EGFR | Routin | 09/20/2015 | | Results for this | | | e | | | procedure are in the | | | | | | results section. | + +--------+ + + + | EXTERNAL LAB: | Routin | 09/20/2015 | | Results for this | | CREATININE | e | | | procedure are in the | | | | | | results section. | + +--------+ + + + | HEMOGLOBIN A1C | Routin | 09/20/2015 | | Results for this | | | e | | | procedure are in the | | | | | | results section. | + +--------+ + + + documented in this encounter Results External Lab: Urinalysis (09/20/2015) + + + + + + | Component | Value | Ref Range | Performed | Pathologist | | | | | At | Signature | + + + + + + | UA Blood, | moderate | | | | | External | | | | | + + + + + + | UA Glucose, | negative | | | | | External | | | | | + + + + + + | UA Ketones, | negative | | | | | External | | | | | + + + + + + | UA Ph, | 6.0 | | | | | External | | | | | + + + + + + | UA | >500 | | | | | Proteins, | | | | | | External | | | | | + + + + + + | UA RBC, | 10 | | | | | External | | | | | + + + + + + | UA Specific | 1.011 | | | | | [place], | | | | | | External | | | | | + + + + + + | UA | | | | | | Leukocyte | | | | | | Esterase, | | | | | | External | | | | | + + + + + + + + | Specimen | + + | | + + Hemoglobin A1C (09/20/2015) + +---------+ + + + | Component | Value | Ref Range | Performed | Pathologist | | | | | At | Signature | + +---------+ + + + | Hemoglobin | 6.5 (A) | 2.8 - 6.4 | EXTERNAL | | | A1c, | | | LAB | | | external | | | | | + +---------+ + + + + + | Specimen | + + | Blood specimen | | (specimen) | + + + + | Resulting Agency Comment | + + | [facility] | + + + +---------+ + + | Performing | Address | City/State/Zipcode | Phone Number | | Organization | | | | + +---------+ + + | EXTERNAL LAB | | | | + +---------+ + + External Lab: BUN (09/20/2015) + +-------+ + + + | Component | Value | Ref Range | Performed | Pathologist | | | | | At | Signature | + +-------+ + + + | BUN, | 18 | 7 - 23 | EXTERNAL | | | External | | | LAB | | + +-------+ + + + + + | Resulting Agency Comment | + + | [facility] | + + + +---------+ + + | Performing | Address | City/State/Zipcode | Phone Number | | Organization | | | | + +---------+ + + | EXTERNAL LAB | | | | + +---------+ + + External Lab: Glucose (09/20/2015) + +---------+ + + + | Component | Value | Ref Range | Performed | Pathologist | | | | | At | Signature | + +---------+ + + + | Glucose, | 191 (A) | 71 - 109 | EXTERNAL | | | External | | | LAB | | + +---------+ + + + + + | Resulting Agency Comment | + + | [facility] | + + + +---------+ + + | Performing | Address | City/State/Zipcode | Phone Number | | Organization | | | | + +---------+ + + | EXTERNAL LAB | | | | + +---------+ + + External Lab: Albumin (09/20/2015) + +---------+ + + + | Component | Value | Ref Range | Performed | Pathologist | | | | | At | Signature | + +---------+ + + + | Albumin, | 3.4 (A) | 3.5 - 5 | EXTERNAL | | | External | | | LAB | | + +---------+ + + + + + | Resulting Agency Comment | + + | [facility] | + + + +---------+ + + | Performing | Address | City/State/Zipcode | Phone Number | | Organization | | | | + +---------+ + + | EXTERNAL LAB | | | | + +---------+ + + External Lab: Protein, Total (09/20/2015) + +---------+ + + + | Component | Value | Ref Range | Performed | Pathologist | | | | | At | Signature | + +---------+ + + + | Protein, | 5.6 (A) | 6.5 - 8.2 | EXTERNAL | | | Total, | | | LAB | | | External | | | | | + +---------+ + + + + + | Resulting Agency Comment | + + | [facility] | + + + +---------+ + + | Performing | Address | City/State/Zipcode | Phone Number | | Organization | | | | + +---------+ + + | EXTERNAL LAB | | | | + +---------+ + + External Lab: Carbon Dioxide (09/20/2015) + +-------+ + + + | Component | Value | Ref Range | Performed | Pathologist | | | | | At | Signature | + +-------+ + + + | Carbon | 29 | 21 - 32 | EXTERNAL | | | Dioxide, | | | LAB | | | External | | | | | + +-------+ + + + + + | Resulting Agency Comment | + + | [facility] | + + + +---------+ + + | Performing | Address | City/State/Zipcode | Phone Number | | Organization | | | | + +---------+ + + | EXTERNAL LAB | | | | + +---------+ + + External Lab: Chloride (09/20/2015) + +-------+ + + + | Component | Value | Ref Range | Performed | Pathologist | | | | | At | Signature | + +-------+ + + + | Chloride, | 105 | 98 - 107 | EXTERNAL | | | External | | | LAB | | + +-------+ + + + + + | Resulting Agency Comment | + + | [facility] | + + + +---------+ + + | Performing | Address | City/State/Zipcode | Phone Number | | Organization | | | | + +---------+ + + | EXTERNAL LAB | | | | + +---------+ + + External Lab: Potassium (09/20/2015) + +-------+ + + + | Component | Value | Ref Range | Performed | Pathologist | | | | | At | Signature | + +-------+ + + + | Potassium, | 4.0 | 3.5 - 5.1 | EXTERNAL | | | External | | | LAB | | + +-------+ + + + + + | Resulting Agency Comment | + + | [facility] | + + + +---------+ + + | Performing | Address | City/State/Zipcode | Phone Number | | Organization | | | | + +---------+ + + | EXTERNAL LAB | | | | + +---------+ + + External Lab: Sodium (09/20/2015) + +-------+ + + + | Component | Value | Ref Range | Performed | Pathologist | | | | | At | Signature | + +-------+ + + + | Sodium, | 142 | 136 - 145 | EXTERNAL | | | External | | | LAB | | + +-------+ + + + + + | Resulting Agency Comment | + + | [facility] | + + + +---------+ + + | Performing | Address | City/State/Zipcode | Phone Number | | Organization | | | | + +---------+ + + | EXTERNAL LAB | | | | + +---------+ + + External Lab: CBC (09/20/2015) + + + + + + | Component | Value | Ref Range | Performed | Pathologist | | | | | At | Signature | + + + + + + | WBC, | 11.20 (A) | 4.8 - 6.2 | EXTERNAL | | | External | | | LAB | | + + + + + + | HGB, | 15.5 | 14 - 18 | EXTERNAL | | | External | | | LAB | | + + + + + + | HCT, | 48.4 | 42 - 52 | EXTERNAL | | | External | | | LAB | | + + + + + + | PLT, | 195 | 150 - 400 | EXTERNAL | | | External | | | LAB | | + + + + + + | Neutrophils | 69.9 | | EXTERNAL | | | %, | | | LAB | | | External | | | | | + + + + + + | Lymphocytes | 17.800 | | EXTERNAL | | | %, | | | LAB | | | External | | | | | + + + + + + | Monocytes | 6.8 | | EXTERNAL | | | %, External | | | LAB | | + + + + + + | Eosinophils | 4.4 | | EXTERNAL | | | %, | | | LAB | | | External | | | | | + + + + + + | RBC, | 5.12 | 4.7 - 6.1 | EXTERNAL | | | External | | | LAB | | + + + + + + | MCV, | 95 (A) | 80 - 94 | EXTERNAL | | | External | | | LAB | | + + + + + + | RDW, | 13.3 | 11.2 - 16.2 | EXTERNAL | | | External | | | LAB | | + + + + + + + + | Resulting Agency Comment | + + | [facility] | + + + +---------+ + + | Performing | Address | City/State/Zipcode | Phone Number | | Organization | | | | + +---------+ + + | EXTERNAL LAB | | | | + +---------+ + + External Lab: eGFR (09/20/2015) + +-------+ + + + | Component | Value | Ref Range | Performed | Pathologist | | | | | At | Signature | + +-------+ + + + | eGFR, | >60 | | EXTERNAL | | | External | | | LAB | | + +-------+ + + + + + | Specimen | + + | Blood specimen | | (specimen) | + + + + | Resulting Agency Comment | + + | [facility] | + + + +---------+ + + | Performing | Address | City/State/Zipcode | Phone Number | | Organization | | | | + +---------+ + + | EXTERNAL LAB | | | | + +---------+ + + External Lab: Creatinine (09/20/2015) + +-------+ + + + | Component | Value | Ref Range | Performed | Pathologist | | | | | At | Signature | + +-------+ + + + | Creatinine, | 1.0 | 0.8 - 1.5 | EXTERNAL | | | External | | | LAB | | + +-------+ + + + + + | Specimen | + + | Blood specimen | | (specimen) | + + + + | Resulting Agency Comment | + + | [facility] | + + + +---------+ + + | Performing | Address | City/State/Zipcode | Phone Number | | Organization | | | | + +---------+ + + | EXTERNAL LAB | | | | + +---------+ + + documented in this encounter Visit Diagnoses Not on filedocumented in this encounter"
--- OUTSIDE RECORDS SUMMARY | ~2020-04-30 | XMS | Encounter Summary ---
Demographics + + + | Address | [address] | | | [place] [address] | + + + | Home Phone | | + + + | Preferred Language | Unknown | + + + | Marital Status | | + + + | Roman Catholic Affiliation | 1013 | + + + | Race | Unknown | + + + | Ethnic Group | Unknown | + + + Author + + + | Author | [facility] | | | and [place] | + + + | Organization | [facility] | | | and [...] Team Providers + +------+ + | Care Practical Nursing Teacher Name | Role | Phone | + +------+ + | Meme Burgos MD | PCP | | + +------+ + Encounter Details +--------+ + + + + | Date | Type | Department | Care Team | Description | +--------+ + + + + | 10/31/ | Orders Only | [facility] | [facility] | Chronic kidney | | 2019 | | NEPHROLOGY [address] | M, DO [address] | disease, stage II | | | | [address] | [address] [place] | (mild) (Primary Dx); | | | | [place], [place] | [place] [address] | Vitamin D | | | | [address] | [phone] | deficiency | | | | [phone] | | | +--------+ + + + [...] encounter Progress Notes Mariam Oneil RN - 10/31/2019 10:58 AM PSTLabs for nephrology appt on 11/03/19 sent to [facility] danae. documented in this en counter Plan of [...] PB | | | | | | [place] [address] | | | | | | [phone] | | | | | | | | +--------+ + + + + | 07/23/ | Office | Pulmonology | Jt Roman | | 2019 | Visit | | Tony Edwards MD [address] | | | | | [address] | | | | | | [place] [address] | | | | | | [phone] | | | | | | | | +--------+ + + + + documented as of this encounter Visit Diagnoses + + | Diagnosis | + + | Chronic kidney disease, stage II (mild) - Primary Chronic kidney disease, Stage II | | (mild) | + + | Vitamin D deficiency Unspecified vitamin D deficiency | + + documented in this encounter"
--- OUTSIDE RECORDS SUMMARY | ~2020-04-30 | XMS | Encounter Summary ---
Demographics + + + | Address | [address] | | | [place] [address] | + + + | Home Phone | | + + + | Preferred Language | Unknown | + + + | Marital Status | | + + + | Protestant Affiliation | 1013 | + + + | Race | Unknown | + + + | Ethnic Group | Unknown | + + + Author + + + | Author | [facility] | | | and [place] | + + + | Organization | [facility] | | | [...] Team Providers + +------+ + | Care Project Management Director Name | Role | Phone | + +------+ + PCP | Unavailable | + +------+ + Reason for Visit +--------+--------+ + | Reason | Onset | Comments | | | Date | | +--------+--------+ + | Other | 11/14/ | | | | 2012 | | +--------+--------+ + Encounter Details +--------+ + + + + | Date | Type | Department | Care Team | Description | +--------+ + + + + | 11/14/ | Telephone | [facility] [place] | Shasta Hebert, | Other | | 2012 | | PULMONARY [address] | RN | | | | | [place], | | | | | | [place] [address] | | | | | | [phone] | | | +--------+ + + + [...] documented as of this encounter Miscellaneous Notes Telephone Encounter - Shasta Hebert RN - 11/14/2012 11:19 AM PSTLATONYA Roman called and cancelled sleep study. elephone Encounter - Shasta Hebert RN - 11/14/2012 11:18 AM PSTMessage copied by SHASTA HEBERT on SunNov 14, 2012 1118 ------ Message from: ZAIN PAEZ Created: Wed Nov 13, 2012 0924 Regarding: Pt cancel Pts. and cancelled his sleep study stating "We are working on other things" she d id not want to reschedule him. PSmith Fatuma rudd in this encounter Plan of Treatment +--------+ + + + + | Date | Type | Specialty | Care Team | Description | +--------+ + + + + | 05/24/ | Off-Site | Nephrology | Juan Paris | | | 2019 | Visit | | DO [address]eme [address] | | | | | | [address] [place] | | | | | | [place] [address] | | | | | | [phone] | | | | | | | | +--------+ + + + + | 07/23/ | Office | Pulmonology | Jt Roman | | | 2019 | Visit | | Tony Edwards MD [address] | | | | | [address] | | | | | | [place] [address] | | | | | | [phone] | | | | | | | | +--------+ + + + + documented as of this encounter Visit Diagnoses Not on filedocumented in this encounter
--- OUTSIDE RECORDS SUMMARY | ~2020-04-30 | XMS | Encounter Summary ---
Demographics + + + | Address | [address] | | | [place] [address] | + + + | Home Phone [...] Team Providers + +------+ + | Care Tobacco Packing Machine Operator Name | Role | Phone | + +------+ + PCP | Unavailable | + +------+ + Encounter Details +--------+ + + + + | Date | Type | Department | Care Team | Description | +--------+ + + + + | 08/18/ | Abstract | [facility] | Juan Paris | | | 2015 | | NEPHROLOGY [address] | M, DO [address] | | | | | [address] | [address] | | | | | [place] | [place] [address] | | | | | [address] | [phone] | | | | | [phone] | | | +--------+ + + + [...] + documented as of this encounter Progress Fawn Holder - 08/18/2016 8:05 AM PSTOutside record: Received progress note (dos 08/02) from Heron Garcia MD. Sent to scan.Electronically signed by Fawn Oquendo at 08/18 8:06 AM PSTdocumented in this encounter Plan of [...] | | | | | | [place] [address] | | | | | | [phone] | | | | | | | | +--------+ + + + + | 07/23/ | Office | Pulmonology | [facility] | | | 2019 | Visit | | Tony Edwards MD [address] | | | | | [address] | | | | | | [place] [address] | | | | | | [phone] | | | | | | | | +--------+ + + + + documented as of this encounter Visit Diagnoses Not on filedocumented in this encounter"
--- OUTSIDE RECORDS SUMMARY | ~2020-04-30 | XMS | Encounter Summary ---
Demographics + + + | Address | [address] | | | [place] [address] | + + + | Home Phone | | + + + | Preferred Language | Unknown | + + + | Marital Status | | + + + | Mormon Affiliation | 1013 | + + + | Race | Unknown | + + + | Ethnic Group | Unknown | + + + Author + + + | Author | [facility] | | | and [place] | + + + | Organization | [facility] | | | [...] Team Providers + +------+ + | Care Demonstrator Sewing Techniques Name | Role | Phone | + +------+ + PCP | Unavailable | + +------+ + Encounter Details +--------+ + + + + | Date | Type | Department | Care Team | Description | +--------+ + + + + | 11/23/ | Abstract | [facility] | Juan Paris | | | 2017 | | NEPHROLOGY [address] | M, DO [address] | | | | | [address] | [address] | | | | | [place] | [place] [address] | | | | | [address] | [phone] | | | | | [phone] | | | +--------+ + + + [...] Nephrology | Juan Paris | | | 2020 | Visit | | M, DO [address] | | | | | | [address] | | | | | | [place] [address] | | | | | | [phone] | | | | | | | | +--------+ + + + + | 07/23/ | Office | Pulmonology | [facility] | | | 2019 | Visit | | Tony Edwards MD [address] | | | | | [address] | | | | | | [place] [address] | | | | | | [phone] | | | | | | | | +--------+ + + + + documented as of this encounter Procedures + +--------+ + + + | Procedure Name | Priori | Date/Time | Associated Diagnosis | Comments | | | ty | | | | + +--------+ + + + | EXTERNAL LAB: BUN | Routin | 11/22/2017 | | Results for this | | | e | | | procedure are in the | | | | | | results section. | + +--------+ + + + | EXTERNAL LAB: | Routin | 11/22/2017 | | Results for this | | GLUCOSE | e | | | procedure are in the | | | | | | results section. | + +--------+ + + + | EXTERNAL LAB: ALT | Routin | 11/22/2017 | | Results for this | | | e | | | procedure are in the | | | | | | results section. | + +--------+ + + + | EXTERNAL LAB: AST | Routin | 11/22/2017 | | Results for this | | | e | | | procedure are in the | | | | | | results section. | + +--------+ + + + | EXTERNAL LAB: | Routin | 11/22/2017 | | Results for this | | ALKALINE PHOSPHATASE | e | | | procedure are in the | | | | | | results section. | + +--------+ + + + | EXTERNAL LAB: | Routin | 11/22/2017 | | Results for this | | BILIRUBIN, TOTAL | e | | | procedure are in the | | | | | | results section. | + +--------+ + + + | EXTERNAL LAB: | Routin | 11/22/2017 | | Results for this | | ALBUMIN | e | | | procedure are in the | | | | | | results section. | + +--------+ + + + | EXTERNAL LAB: | Routin | 11/22/2017 | | Results for this | | PROTEIN, TOTAL | e | | | procedure are in the | | | | | | results section. | + +--------+ + + + | EXTERNAL LAB: | Routin | 11/22/2017 | | Results for this | | PHOSPHORUS | e | | | procedure are in the | | | | | | results section. | + +--------+ + + + | EXTERNAL LAB: | Routin | 11/22/2017 | | Results for this | | CALCIUM | e | | | procedure are in the | | | | | | results section. | + +--------+ + + + | EXTERNAL LAB: CARBON | Routin | 11/22/2017 | | Results for this | | DIOXIDE | e | | | procedure are in the | | | | | | results section. | + +--------+ + + + | EXTERNAL LAB: | Routin | 11/22/2017 | | Results for this | | CHLORIDE | e | | | procedure are in the | | | | | | results section. | + +--------+ + + + | EXTERNAL LAB: | Routin | 11/22/2017 | | Results for this | | POTASSIUM | e | | | procedure are in the | | | | | | results section. | + +--------+ + + + | EXTERNAL LAB: SODIUM | Routin | 11/22/2017 | | Results for this | | | e | | | procedure are in the | | | | | | results section. | + +--------+ + + + | EXTERNAL LAB: | Routin | 11/22/2017 | | Results for this | | PROTEIN, URINE, 24HR | e | | | procedure are in the | | | | | | results section. | + +--------+ + + + | EXTERNAL LAB: MINE | Routin | 11/22/2017 | | Results for this | | | e | | | procedure are in the | | | | | | results section. | + +--------+ + + + | EXTERNAL LAB: EGFR | Routin | 11/22/2017 | | Results for this | | | e | | | procedure are in the | | | | | | results section. | + +--------+ + + + | EXTERNAL LAB: | Routin | 11/22/2017 | | Results for this | | CREATININE | e | | | procedure are in the | | | | | | results section. | + +--------+ + + + | CREATININE | Routin | 11/22/2017 | | Results for this | | CLEARANCE, TEST | e | | | procedure are in the | | | | | | results section. | + +--------+ + + + | HEMOGLOBIN A1C | Routin | 11/22/2017 | | Results for this | | | e | | | procedure are in the | | | | | | results section. | + +--------+ + + + documented in this encounter Results Hemoglobin A1C (11/22/2017) + +-------+ + + + | Component | Value | Ref Range | Performed | Pathologist | | | | | At | Signature | + +-------+ + + + | Hemoglobin | 6.8 | % | EXTERNAL | | | A1c | | | LAB | | + +-------+ + + + + + | Specimen | + + | Blood | + + + + | Resulting Agency Comment | + + | [facility] | + + + +---------+ + + | Performing | Address | City/State/Zipcode | Phone Number | | Organization | | | | + +---------+ + + | EXTERNAL LAB | | | | + +---------+ + + Creatinine Clearance, Test (11/22/2017) + + + + + + | Component | Value | Ref Range | Performed | Pathologist | | | | | At | Signature | + + + + + + | CREATININE | 66.0 (A) | 97.0 - 137.0 | | | | CLEARANCE | | mL/min | | | + + + + + + | 24H Urine | 1,300 | mL | | | | Volume | | | | | + + + + + + | PTH Intact, | 33.99 | 15 - 65 | | | | External | | | | | + + + + + + + + | Specimen | + + | Urine | + + External Lab: BRENDA (11/22/2017) + +-------+ + + + | Component [...] + +---------+ + + External Lab: Glucose (11/22/2017) + +---------+ + + + | Component | Value | Ref Range | Performed | Pathologist | | | | | At | Signature | + +---------+ + + + | Glucose, | 162 (A) | 70 - 100 | EXTERNAL [...] + +---------+ + + External Lab: ALT (11/22/2017) + +-------+ + + + | Component | Value | Ref Range | Performed | Pathologist | | | | | At | Signature | + +-------+ + + + | ALT, | 16 | 7 - 52 | EXTERNAL | [...] + +---------+ + + External Lab: AST (11/22/2017) + +--------+ + + + | Component | Value | Ref Range | Performed | Pathologist | | | | | At | Signature | + +--------+ + + + | AST, | 10 (A) | 13 - 39 | EXTERNAL [...] +---------+ + + External Lab: Alkaline Phosphatase (11/22/2017) + +-------+ + + + | Component | Value | Ref Range | Performed | Pathologist | | | | | At | Signature | + +-------+ + + + | ALP, | 60 | 31 - 120 | EXTERNAL | | | External | [...] +---------+ + + External Lab: Bilirubin, Total (11/22/2017) + +---------+ + + + | Component | Value | Ref Range | Performed | Pathologist | | | | | At | Signature | + +---------+ + + + | Bilirubin, | 1.3 (A) | 0 - 1.2 | EXTERNAL | [...] + +---------+ + + External Lab: Albumin (11/22/2017) + +-------+ + + + | Component | Value | Ref Range | Performed | Pathologist | | | | | At | Signature | + +-------+ + + + | Albumin, | 3.9 | 3.5 - 5 | EXTERNAL | [...] +---------+ + + External Lab: Protein, Total (11/22/2017) + +---------+ + + + | Component | Value | Ref Range | Performed | Pathologist | | | | | At | Signature | + +---------+ + + + | Protein, | 5.6 (A) | 6 - 8 | EXTERNAL [...] + +---------+ + + External Lab: Phosphorus (11/22/2017) + +-------+ + + + | Component | Value | Ref Range | Performed | Pathologist | | | | | At | Signature | + +-------+ + + + | Phosphorus, | 2.6 | 2.5 - 5 | EXTERNAL | [...] + +---------+ + + External Lab: Calcium (11/22/2017) + +-------+ + + + | Component [...] +---------+ + + External Lab: Carbon Dioxide (11/22/2017) + +-------+ + + + | Component | Value | Ref Range | Performed | Pathologist | | | | | At | Signature | + +-------+ + + + | Carbon | 105 | 95 - 112 | EXTERNAL | | | Dioxide, | [...] + +---------+ + + External Lab: Chloride (11/22/2017) + +-------+ + + + | Component | Value | Ref Range | Performed | Pathologist | | | | | At | Signature | + +-------+ + + + | Chloride, | 105 | 95 - 112 | EXTERNAL | [...] + +---------+ + + External Lab: Potassium (11/22/2017) + +-------+ + + + | Component | Value | Ref Range | Performed | Pathologist | | | | | At | Signature | + +-------+ + + + | Potassium, | 4 | 3.6 - 5.1 | EXTERNAL | [...] + +---------+ + + External Lab: Sodium (11/22/2017) + +-------+ + + + | Component | Value | Ref Range | Performed | Pathologist | | | | | At | Signature | + +-------+ + + + | Sodium, | 142 | 132 - 143 | EXTERNAL | [...] + + External Lab: Protein, Urine, 24Hr (11/22/2017) + +-------+ + + + | Component | Value | Ref Range | Performed | Pathologist | | | | | At | Signature | + +-------+ + + + | Protein, | 91 | | EXTERNAL | | | Urine 24Hr, | | | LAB | | | External | | | | | + +-------+ + + + + + | Specimen | + + | Urine | + + + + | Resulting Agency Comment | + + | [facility] | + + + +---------+ + + | Performing | Address | City/State/Zipcode | Phone Number | | Organization | | | | + +---------+ + + | EXTERNAL LAB | | | | + +---------+ + + External Lab: CBC (11/22/2017) + +-------+ + + + | Component | Value | Ref Range | Performed | Pathologist | | | | | At | Signature | + +-------+ + + + | WBC, | 10.1 | 4.5 - 11 | EXTERNAL | | | External | | | LAB | | + +-------+ + + + | HGB, | 14.4 | 13.5 - 18 | EXTERNAL | | | External | | | LAB | | + +-------+ + + + | HCT, | 43.7 | 41 - 50 | EXTERNAL | | | External | | | LAB | | + +-------+ + + + | PLT, | 219 | 140 - 440 | EXTERNAL | | | External | | | LAB | | + +-------+ + + + | RBC, | 4.7 | 4.3 - 5.7 | EXTERNAL | | | External | | | LAB | | + +-------+ + + + | MCV, | 93 | 81 - 99 | EXTERNAL | | | External | | | LAB | | + +-------+ + + + | RDW, | 14.2 | 10.5 - 15 | EXTERNAL | [...] + +---------+ + + External Lab: eGFR (11/22/2017) + +-------+ + + + | Component | Value | Ref Range | Performed | Pathologist | | | | | At | Signature | + +-------+ + + + | eGFR, | 74 | | EXTERNAL | | | External | | | LAB | | + +-------+ + + + + + | Specimen | + + | Blood | + + + + | Resulting Agency Comment | + + | [facility] | + + + +---------+ + + | Performing | Address | City/State/Zipcode | Phone Number | | Organization | | | | + +---------+ + + | EXTERNAL LAB | | | | + +---------+ + + External Lab: Creatinine (11/22/2017) + +-------+ + + + | Component | Value | Ref Range | Performed | Pathologist | | | | | At | Signature | + +-------+ + + + | Creatinine, | 1 | 0.7 - 1.25 | EXTERNAL | | | External | | | LAB | | + +-------+ + + + + + | Specimen | + + | Blood | + + + + | Resulting [...]
--- OUTSIDE RECORDS SUMMARY | ~2020-04-30 | XMS | Encounter Summary ---
Demographics + + + | Address | [address] | | | [place] [address] | + + + | Home Phone | | + + + | Preferred Language | Unknown | + + + | Marital Status | | + + + | Congregational Affiliation | 1013 | + + + | Race | Unknown | + + + | Ethnic Group | Unknown | + + + Author + + + | Author | [facility] | | | and [place] | + + + | Organization | [facility] | | | [...] Team Providers + +------+ + | Care Minute Clerk Name | Role | Phone | + +------+ + PCP | Unavailable | + +------+ + Encounter Details +--------+ + + + + | Date | Type | Department | Care Team | Description | +--------+ + + + + | 03/08/ | Orders Only | [facility] | Juan Paris | Left kidney mass | | 2016 | | NEPHROLOGY [address] | M, DO [address] | (Primary Dx) | | | | [address] | [address] [place] | | | | | [place] | [place] [address] | | | | | [address] | [phone] | | | | | [phone] | | | +--------+ + + + [...] [facility] | | | | | | [facility] [address] | | | | | | [place] [address] | | | | | | [phone] | | | | | | | | +--------+ + + + + | 07/23/ | Office | Pulmonology | [facility] | | | 2019 | Visit | | Tony Edwards MD [address] | | | | [address] | | | | | | [place] [address] | | | | | | [phone] | | | | | | | | +--------+ + + + + documented as of this encounter Visit Diagnoses + + | Diagnosis | + + | Left kidney mass - Primary Unspecified disorder of kidney and ureter | + + documented in this encounter"
--- OUTSIDE RECORDS SUMMARY | ~2020-04-30 | XMS | Encounter Summary ---
Demographics + + + | Address | [address] | | | [place] [address] | + + + | Home Phone | | + + + | Preferred Language | Unknown | + + + | Marital Status | | + + + | Gnosticism Affiliation | 1013 | + + + | Race | Unknown | + + + | Ethnic Group | Unknown | + + + Author + + + | Author | [facility] | | | and [place] | + + + | Organization | [facility] | | [...] Team Providers + +------+ + | Care [employer] Sealer Name | Role | Phone | + [...] Description | +--------+---------+ + + + | 04/22/ | Office | [facility] | Jt Roman | COPD, severe (HCC) | | 2020 | Visit | PULMONOLOGY [address] | Tony Edwards MD [address] | (Primary Dx); | | | | [address] | [place] | Nocturnal hypoxemia | | | | [place], [place] | [place] [address] | | | | | [address] | [phone] | | | | | [phone] | | | +--------+---------+ + + + Social History + +-------+ +--------+------+ | Tobacco Use | Types | Packs/Day | Years | Date | | | | | Used | | + +-------+ +--------+------+ | Current Every Day | | 1 | 41 | | | Smoker | | | | | + +-------+ +--------+------+ + +------+---+ + | Smokeless Tobacco: | Chew | | Quit: | | Former User | | | 12/12/19 | | | | | 17 | + +------+---+ + + + | Comments: Current chew | + + + + +---------+ + | Alcohol Use | Drinks/Week | oz/Week | Comments | + + +---------+ + | Yes | 0 Standard drinks | 0.0 | 1 beer every few | | | or equivalent | | months | + + +---------+ + + + [...] + + + | Blood Pressure | 120/63 | 04/22/2020 10:04 AM | | | | | PDT | | + + + + + | Pulse | 82 | 04/22/2020 10:04 AM | | | | | PDT | | + + + + + | Temperature | 36.7 C (98.1 F) | 04/22/2020 10:04 AM | | | | | PDT | | + + + + + | Respiratory Rate | - | - | | + + + + + | Oxygen Saturation | 98% | 04/22/2020 10:04 AM | | | | | PDT | | + + + + + | Inhaled Oxygen | - | - | | | Concentration | | | | + + + + + | Weight | 87.5 kg (193 lb) | 04/22/2020 10:04 AM | | | | | PDT | | + + + + + | Height | 182.9 cm (6') | 04/22/2020 10:04 AM | | | | | PDT | | + + + + + | Body Mass Index | 26.18 | 04/22/2020 10:04 AM | | | | | PDT | | + + + + + documented in this encounter Progress Notes Arturo Meadows, Outlet Manager - 04/22/2020 10:00 AM PDT3 step testing Oximetry Exercise (code) 13198 1. At rest on room air: Time:10:30 AM Heart rate:88 Oxygen saturations:98 2. At exercise on room air: Time:10:31 AM Heart rate:86 Oxygen saturations:92% 3. At exercise with oxygen: Time: Heart rate: Oxygen Saturations: Liters per minute: uarthur , Jt Edwards MD - 04/22/2020 10:00 AM PDTFormatting of this note might be different f rom the original. [facility] [address] [place] [address] HISTORY: Chief Complaint: I have been asked to assist in the pulmonary evaluation of Sierra Guzman, 69 y.o. male, for COPD. History of Present Illness: Initial history: 03/07/17 Sierra Roman is a pleasant 66 year old gentleman referred to me for COPD. 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 He quit a month ago after a COPD exacerbation. He te lls me that he recently had a PFT at the [facility] in [place] about 6 months ago and was told h lobo had severe COPD. He has also had a CT scan of the chest in 01/2016 showing severe upper l obe predominant emphysema. It seems that he was having trouble with a COPD exacerbation du ring the winter and a month ago. Last month, he went to [facility] and was seen at the ED. 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 He was previously followed by Dr. Rivera in [place]. Interval history: Sierra is here for follow up for COPD. He has not had exacerbations. He continues to have c hronic SNOWDEN and has to stop when walking 20 feet. He denies wheezing but has chronic product scarlett cough with clear phlegm. He continues to use Symbicort plus Spiriva. He is still enrolled in pulmonary rehab. He is down to 5mg daily of prednisone. Review of Systems Constitutional: Negative. Negative for chills, fever and malaise/fatigue. HENT: Negative. Negative for congestion, sinus pain and sore throat. Eyes: Negative. Respiratory: Positive for cough, sputum production and shortness of breath. Negative for he moptysis, wheezing and stridor. Cardiovascular: Negative. Negative for leg swelling. Gastrointestinal: Negative. Negative for abdominal pain, heartburn, nausea and vomiting. Genitourinary: Negative. Musculoskeletal: Negative. Skin: Negative. Neurological: Negative. Endo/Heme/Allergies: Negative. Negative for environmental allergies. All other systems reviewed and are negative. 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 Nicotine dependence Night sweats hyperhidrosis Obesity Peripheral neuropathy Pneumonia Prostate hyperplasia, benign localized, with urinary obstruction 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 albuterol 2.5 mg/3 mL nebulizer solution (Taking) Take 3 mLs by nebulization every 4 hours as needed for Shortness of Breath. albuterol-ipratropium 2.5-0.5 mg/3 mL SOLN (Taking) Take 3 mLs by nebulization. aspirin 81 MG EC tablet (Taking) Take 81 mg by mouth Daily. B Complex Vitamins (B COMPLEX PO) (Taking) Take by mouth daily. budesonide-formoterol (SYMBICORT) 160-4.5 mcg/puff inhaler (Taking) Inhale two inhalations by mouth twice daily Calcium Carb-Cholecalciferol 600-800 MG-UNIT TABS (Taking) Take 1 tablet by mouth Daily . calcium, as carbonate, (CALTRATE) 600 mg tablet (Taking) Take 600 mg by mouth daily (with breakfast). cetirizine (ZYRTEC) 10 mg tablet (Taking) Take 10 mg by mouth Daily. cholecalciferol (VITAMIN D-3) 400 units capsule (Taking) 1,000 Units . citalopram (CELEXA) 10 mg tablet (Taking) Take 10 mg by mouth daily. fish oil 1,000 mg capsule (Taking) Take 2,000 mg by mouth nightly. Flaxseed, Linseed, (FLAX SEED OIL) 1000 MG CAPS (Taking) Take 1,000 mg by mouth Daily. FLUTICASONE FUROATE IN (Taking) Inhale 50 mg into the lungs. furosemide (LASIX) 40 mg tablet (Taking) Take 1 tablet by mouth Daily as needed. glipiZIDE (GLUCOTROL XL) 2.5 mg 24 hr tablet (Taking) Take 2.5 mg by mouth daily (with darleen akfast). guaiFENesin (MUCINEX) 600 mg 12 hr tablet (Taking) Take 600 mg by mouth 2 times daily. losartan (COZAAR) 25 mg tablet (Taking) Take 12.5 mg by mouth nightly . metFORMIN (GLUCOPHAGE) 500 mg tablet (Taking) Take 500 mg by mouth 4 (four) times daily. 2 pills AM 2 pills PM montelukast (SINGULAIR) 10 mg tablet (Taking) Take 10 mg by mouth Daily. Multiple Vitamins-Minerals (B COMPLEX PLUS VITAMIN C PO) (Taking) Take 1 tablet by mouth D aily. omeprazole (PRILOSEC) 20 mg capsule (Taking) Take one capsule by mouth once daily on an em pty stomach predniSONE (DELTASONE) 10 mg tablet (Taking) take 1 tablet by mouth once daily simvastatin (ZOCOR) 20 mg tablet (Taking) Take 1 tablet by mouth Daily. tamsulosin (FLOMAX) 0.4 mg CAPS (Taking) Take 0.4 mg by mouth every evening. Take 2 tabs n ightly tiotropium (SPIRIVA) 18 mcg inhalation capsule (Taking) Inhale 18 mcg into the lungs daily . ZINC-VITAMIN C PO (Taking) Take by mouth Daily. Allergies Allergen Reactions Amoxicillin Hives, Shortness Of Breath and Rash Lisinopril Cough Social History Socioeconomic History Marital status: Spouse name: Not on file Number of children: Not on file Years of education: Not on file Highest education level: Not on file Occupational History Not on file Social Needs Financial resource strain: Not on file Food insecurity Worry: Not on file Inability: Not on file Transportation needs Medical: Not on file Non-medical: Not on file Tobacco Use Smoking status: Current Every Day Smoker Packs/day: 1.00 Years: 41.00 Pack years: 41.00 Smokeless tobacco: Former User Types: Chew Quit date: 12/11/2016 Tobacco comment: Current chew Substance and Sexual Activity Alcohol use: Yes Alcohol/week: 0.0 standard drinks Comment: 1 beer every few months Drug use: No Comment: Drug use: No Sexual activity: Not on file Lifestyle Physical activity Days per week: Not on file Minutes per session: Not on file Stress: Not on file Relationships Social connections Talks on phone: Not on file Gets together: Not on file Attends uatsdin service: Not on file Active member of club or organization: Not on file Attends meetings of clubs or organizations: Not on file Relationship status: Not on file Intimate partner violence Fear of current or ex partner: Not on file Emotionally abused: Not on file Physically abused: Not on file Forced sexual activity: Not on file Other Topics Concern [...] Diabetes Brother PHYSICAL EXAMINATION: Vital Signs: Vitals: 04/22/20 1004 BP: 120/63 Pulse: 82 Temp: 36.7 C (98.1 F) TempSrc: Oral SpO2: 98% Weight: 87.5 kg (193 lb) Height: 1.829 m (6') Weight: Wt Readings from Last 2 Encounters: 04/22/20 87.5 kg (193 lb) 04/08/20 88.9 kg (195 lb 15.8 oz) .lastwt BMI: Body mass index is [...] No stridor. No respiratory distress. He has no wheezes. He has no rales. Diminished BS bilat Abdominal: Soft. He exhibits no distension. There is no abdominal tenderness. Musculoskeletal: General: Edema (trace ankle edema) present. Lymphadenopathy: He has no cervical adenopathy. Neurological: He is alert. Skin: Skin is warm. No rash noted. He is not diaphoretic. No erythema. Vitals reviewed. LABORATORY EVALUATION: Diagnostic Studies: Available Labs and Images were reviewed personally. Significant resul ts and findings are addressed below or in the Assessment and Plan. ASSESSMENT AND PLAN: A> 69 y.o. male with COPD, emphysema, in a former smoker P> 1. COPD - the patient has COPD with emphysema with very severe obstructive lung disease on PFT - currently not in exacerbation - chronic symptoms include chronic SNOWDEN with walking 20 feet and chronic productive cough - recommended to continue Symbicort 160/4.5 2puffs BID - continue Spiriva 18 mcg 1 puff daily - continue albuterol inh and nebs PRN for dyspnea or wheezing - continue singulair for possible asthma overlap - we will keep him on prednisone 5mg daily. He has had several exacerbations and keeping h im on chronic oral prednisone has significantly reduced the exacerbation rate - he will continue with pulmonary rehab as well - in the future, we may still consider referring to for evaluation for LVRS. 2. Chronic nocturnal hypoxemia - continue 2LPM O2 at night. - 3 step done, lowest ambulatory O2 sat on room air was 92% hence does not require portable daytime O2 3. Chronic/recurrent sinusitis - symptoms controlled on saline sinus rinses and flonase The patient will follow up with me in 3 months Jt Roman MD Pulmonary and Critical Care Medicine [facility] Pulmonology documented in this encounter Plan of Treatment +--------+ + + + + | Date | Type | Specialty | Care Team | Description | +--------+ + + + + | 05/24/ | Off-Site | Nephrology | Juan Paris | | 2019 | Visit | | DO [address] | | | | | | [address] | | | | | | [place] [address] | | | | | | [phone] | | | | | | | | +--------+ + + + + | 07/23/ | Office | Pulmonology | Jt Roman | | | 2019 | Visit | | Tony Edwards MD [address] | | | | | | [address] | | | | | | [place] [address] | | | | | | [phone] | | | | | | | | +--------+ + + + + documented as of this encounter Visit Diagnoses + + | Diagnosis | + + | COPD, severe (HCC) - Primary Chronic airway obstruction, not elsewhere classified | + + | Nocturnal hypoxemia Hypoxemia | + + documented in this encounter"
--- OUTSIDE RECORDS SUMMARY | ~2020-04-30 | XMS | Encounter Summary ---
Demographics + + + | Address | [address] | | | [place] [address] | + + + | Home Phone | | + + + | Preferred Language | Unknown | + + + | Marital Status | | + + + | Caodaism Affiliation | 1013 | + + + | Race | Unknown | + + + | Ethnic Group | Unknown | + + + Author + + + | Author | [facility] | | | and [place] | + + + | Organization | [facility] | | | and [...] Team Providers + +------+ + | Care Can Dragger Name | Role | Phone | + +------+ + PCP | Unavailable | + +------+ + Encounter Details +--------+ + + + + | Date | Type | Department | Care Team | Description | +--------+ + + + + | 03/17/ | Hospital | [facility] | Terrence Quiles | | | 2010 | Encounter | [facility] GENER[facility] OP | MD [place] [address] | | | | | CONV DEPT [address] | [place], [place] | | | | | [place], | [address] | | | | | [place] [address] | | | | | | [phone] | | | +--------+ + + + [...] Miscellaneous Notes Pulmonary Function - Terrence Quiles - 03/17/2011 8:54 AM PDTDATE: 03/17/2011 PULMONARY FUNCTION TEST SPIROMETRY: FEV1 is moderately reduced at 1.94 L or 50% of predicted. FVC is mildly reduce d at 3.94 L or 77% of predicted. FEV1 to FVC ratio is moderately reduced at 49%. COMPARISON OF PRIOR TESTING: Above data were compared to previous pulmonary function tests performed in this laboratory, 2 months earlier on 01/16/2011. There has been a marked impr ovement in FEV1 risi ng from 1.23 to 1.94 L, an increase of greater than 50%. IMPRESSION: Moderately severe airflow obstruction is present. Compared to testing performe d 2 months earlier, there has been significant improvement in airflow obstruction. DICTATED BY: Terrence Quiles MD Pulmonary / Critical Care JOB #: [id number] EXT JOB #:[id number] <Electronicall y Signed by Terrence Quiles MD> 03/17/11 1629 documented in th is encounter Plan of Treatment +--------+ + + + + | Date | Type | Specialty | Care Team | Description | +--------+ + + + + | 05/24/ | Off-Site | Nephrology | Juan Paris | | | 2019 | Visit | | DO Nisreen [address] | | | | | | [facility] [address] | | | | | | [place] [address] | | | | | | [phone] | | | | | | | | +--------+ + + + + | 07/23/ | Office | Pulmonology | Jt Roman | | | 2019 | Visit | | Tony Edwards MD [address] | | | | | | [address] | | | | | | [place] [address] | | | | | | [phone] | | | | | | | | +--------+ + + + + documented as of this encounter Visit Diagnoses Not on filedocumented in this encounter"
--- OUTSIDE RECORDS SUMMARY | ~2020-04-30 | XMS | Encounter Summary ---
Demographics + + + | Address | [address] | | | [place] [address] | + + + | Home Phone [...] Team Providers + +------+ + | Care Stallion Keeper Name | Role | Phone | + +------+ + PCP | Unavailable | + +------+ + Reason for Visit +--------+ + | Reason | Comments | +--------+ + | COPD | 6 month follow up - Dr. Quiles | +--------+ + Encounter Details +--------+---------+ + + + | Date | Type | Department | Care Team | Description | +--------+---------+ + + + | 10/14/ | Office | [facility] | Venkata Rivera, | COPD, severe (HCC) | | 2016 | Visit | PULMONARY [address] | MD [address] | (Primary Dx); | | | | [place], | [place], [place] | Hypoxemia | | | | [place] [address] | [address] | | | | | [phone] | | | +--------+---------+ + + + [...] | | + +------+---+---+ + + | Tobacco Cessation: Ready to Quit: No; Counseling Given: No | | Comments: 10/14/15: Currently on Chantix | [...] + | Blood Pressure | 124/70 | 10/14/2015 11:14 AM | | | | | PST | | + + + + + | Pulse | 76 | 10/14/2015 11:14 AM | | | | | PST | | + + + + + | Temperature | - | - | | + + + + + | Respiratory Rate | - | - | | + + + + + | Oxygen Saturation | 95% | 10/14/2015 11:14 AM | | | | | PST | | + + + + + | Inhaled Oxygen | - | - | | | Concentration | | | | + + + + + | Weight | 94.3 kg (208 lb) | 10/14/2015 11:14 AM | | | | | PST | | + + + + + | Height | 177.8 cm (5' 10") | 10/14/2015 11:14 AM | | | | | PST | | + + + + + | Body Mass Index | 29.84 | 10/14/2015 11:14 AM | | | | | PST | | + + + + + documented in this encounter Progress Notes Venkata Rivera MD - 10/14/2015 11:37 AM PSTFormatting of this note might be different f rom the original. Pulmonary Follow Up 10/14/2015 HPI Sierra Roman is a 65 y.o. male patient of [facility] here today for follow up o f Gold Stage III COPD. The last pulmonary clinic visit was on 02/15/15. Since their last appointment they feel lik e their breathing issues have been stable. They have had any acute pulmonary illnesses in August 2015. The patient has required a pr ednisone taper since our last clinic appointment. Likewise Sierra Roman has required an tibiotics for a COPD exacerbation since our last clinic appointment. They are currently on a daily regimen of Norno Ellipta and Asmanex for their COPD. The nick bean is having some challenges getting the Norno Ellipta through her insurance. They do fee l like this medication regimen is controlling their symptoms. Currently he is using their s hort acting inhaler, Ventolin, 1 times every 2-3 days. They are using their albuterol nebul izer, 0 times a day. Currently the patient is able to walk 20 yards at their own pace on level ground before dev eloping dyspnea. They are not exercising regularly. Continues to work. They are not enrolle d in cardiac/pulmonary rehabilitation. They have not completed pulmonary rehabilitation in t he past. The patient does cough chronically, and does not produce mucous. They have not had hemoptys is since our last appointment. He has been evaluated for nocturnal oxygen. They currently are using nocturnal oxygen. Th ey are currently on 2.5 LPM at night while sleeping. They report excellent compliance. They have not reported recent symptoms of nasal congestion, runny nose or post nasal drip. The patient have received this year's influenza vaccination. They are up to date with thei r Pneumovax and Prevnar. Past Medical History Past Medical History Diagnosis Date GERD (gastroesophageal reflux disease) Pereira's esophagus Hyperlipidemia Membranous glomerulonephritis 2004 COPD (chronic obstructive pulmonary disease) ([facility]) Gold III 12/18/09 Diabetes mellitus ([facility]) TYPE II Social History: He reports that he quit smoking about 2 weeks ago. His smokeless tobacco use includes Chew. He reports that he does not drink alcohol or use illicit drugs. Allergies: Allergies Allergen Reactions Amoxicillin Medications: Current outpatient prescriptions: albuterol 2.5 mg/3 mL nebulizer solution, Use in nebulize r every 4 hours as needed for shortness of breath, Disp: , Rfl: ; albuterol 90 mcg/puff inh aler, Inhale 2 puffs into the lungs every 6 hours as needed for Wheezing., Disp: , Rfl: ; a mLODIPine (NORVASC) 2.5 mg tablet, Take 2.5 mg by mouth nightly., Disp: , Rfl: ASMANEX 60 METERED DOSES 220 MCG/INH inhaler, INHALE 1 DOSE BY MOUTH TWICE DAILY, Disp: 1 I nhaler, Rfl: 5; aspirin 81 MG EC tablet, Take 81 mg by mouth Daily., Disp: , Rfl: ; Calciu m Carb-Cholecalciferol 600-800 MG-UNIT TABS, Take 2 tablets by mouth Daily., Disp: , Rfl: ; dutasteride (AVODART) 0.5 mg capsule, Take 0.5 mg by mouth Daily., Disp: , Rfl: ; losartan (COZAAR) 100 MG tablet, Take 100 mg by mouth nightly., Disp: , Rfl: metoprolol succinate (TOPROL-XL) 50 mg 24 hr tablet, Take 50 mg by mouth Daily., Disp: , Rf l: ; Misc Natural Products (MIDNITE) CHEW, Take by mouth., Disp: , Rfl: ; Multiple Vitami ns-Minerals (ALIVE MENS ENERGY PO), Take 1 tablet by mouth Daily., Disp: , Rfl: ; omeprazol e (PRILOSEC) 20 mg capsule, Take one capsule by mouth once daily on an empty stomach, Disp: , Rfl: simvastatin (ZOCOR) 20 mg tablet, Take 1 tablet by mouth Daily., Disp: 90 tablet, Rfl: 4; umeclidinium-vilanterol (ANORO ELLIPTA) 62.5-25 mcg/puff inhaler, Inhale 1 puff into the yan gs Daily., Disp: , Rfl: ; varenicline (CHANTIX) 1 MG tablet, Take 1 mg by mouth Daily., Dis p: , Rfl: Immunizations: Immunization History Administered Date(s) Administered INFLUENZA, HIGH DOSE SEASONAL (ADULT) 08/14/2015 INFLUENZA, TRIVALENT PRESERVATIVE FREE (PED/ADOL/ADULT) 10/10/2012, 07/15/2013, 014 PNEUMOCOCCAL CONJUGATE 13-VALENT (PCV13) 09/13/2015 PNEUMOCOCCAL POLYSACCHARIDE [...] Denies urticaria and allergic rash. Objective BP 124/70 mmHg | Pulse 76 | Ht 1.778 m (5' 10") | Wt 94.348 kg (208 lb) | BMI 29.84 kg/m2 | SpO2 95% Appearance: Alert, cooperative, no distress, appears stated age. Head: Normocephalic, without obvious abnormality, atraumatic. Eyes: PERRL, conjunctiva/corneas clear. Nose: Nares normal, septum midline, mucosa normal, no drainage or sinus tenderness. Throat: Oral mucosa and tongue are normal. No thrush. Neck: Supple, no JVD Lungs: No accessory muscle use, breath sounds are clear to auscultation bilaterally. No wheezes. No crackles or rhonchi. No dullness to percussion. Chest Wall: No tenderness or deformity. Heart: Regular rate and rhythm. S1, S2 normal. No murmur, rubs or gallops. Extremities: Extremities normal/atraumatic. No cyanosis, clubbing. no edema. Skin: Warm and dry. Lymph nodes: No significant cervical and supraclavicular nodes. Neurologic: Gait normal. No apparent weakness. Data: Radiology a chest x-ray from 10/13/15 does not show acute changes. Chronic flattening of the diaphragms is noted. Assessment 1. COPD Gold stage III based on pulmonary function tests from 2009. There is apparently some question as to whether Mr. Roman was experiencing other issues which potentially could have falsely impacted his pulmonary function tests at that time. The patient is using Asmanex and Norno Ellipta. However he is experiencing some difficulty obtaining Norno Ellipta from his insurance. The medication [facility] not [facility] . One option would be to convert Norno Ellipta to Spiriva and Foradil. The patient is up-to-date with respect to his seasonal influenza vaccination, Prevnar and P neumovax. 2. Hypoxemia patient wears supplemental oxygen at 2.5 L/m at night while he sleeps. 3. Kidney disease apparent worsening proteinuria. Recently evaluated by Dr. stromal. Nguyen he patient is going to [place] in the near future for further evaluation. Total duration of the patient's clinic appointment was in excess of 30 minutes. They're to 50% of the time was spent in counseling related to COPD management and monitoring. Plan 1. Initiate regular scheduled exercise in lieu of pulmonary rehab. 2. High dose seasonal influenza vaccination July 2016. 3. Patient to notify her office if Spiriva/Foradil is needed instead of Norno Ellipta. 4. Pulmonary clinic follow-up appointment in 12 months time. 5. Pre-and postbronchodilator spirometry with follow-up. CC: Heron Garcia documented in this encounter [...] | | | | | | [place] [address] | | | | | | [phone] | | | | | | | | +--------+ + + + + | 07/23/ | Office | Pulmonology | Jt Roman | | | 2019 | Visit | | Tony Edwards MD [address] | | | | | [address] | | | | | | [place] [address] | | | | | | [phone] | | | | | | | | +--------+ + + + + + + +--------+ + + | Name | Type | Priori | Associated Diagnoses | Order Schedule | | | | ty | | | + + +--------+ + + | * [facility] | Respiratory | [facility] | COPD, severe (HCC) | 1 Occurrences | | Pulmonary Function | Care | | | starting 10/14/2015 | | Testing - AMB | | | | until 10/14/2016 | | Referral | | | | | + + +--------+ + + documented as of this encounter Visit Diagnoses + + | Diagnosis | + + | COPD, severe (HCC) - Primary Chronic airway obstruction, not elsewhere classified | + + | Hypoxemia | + + documented in this encounter
--- OUTSIDE RECORDS SUMMARY | ~2020-04-30 | XMS | Encounter Summary ---
Demographics + + + | Address | [address] | | | [place] [address] | + + + | Home Phone | | + + + | Preferred Language | Unknown | + + + | Marital Status | | + + + | Episcopal Affiliation | 1013 | + + + [...] Team Providers + +------+ + | Care Rope Cleaner Name | Role | Phone | + +------+ + PCP | Unavailable | + +------+ + Encounter Details +--------+ + + + + | Date | Type | Department | Care Team | Description | +--------+ + + + + | 09/27/ | Documentati | [facility] | Venkata Rivera, | | | 2016 | on | PULMONARY [address] | MD [address] | | | | | [place], | [place] | | | | | [place] [address] | [address] | | | | | [phone] | | | +--------+ + + + [...] + documented as of this encounter Progress Mercedes Graves - 09/27/2016 12:55 PM PSTI have left three messages (06/23/16 [phone]/06/16 1316) on patient's voicemail ([phone]) requesting that he schedule a fo llow up with Dr. Rivera as he is booking six months in advance. documented in this encounter Plan of Treatment [...] [address] | | | | | | [place] [address] | | | | | | [phone] | | | | | | | | +--------+ + + + + | 07/23/ | Office | Pulmonology | Jt Roman | | | 2019 | Visit | | Tony Edwards MD [address] | | | | | [address] | | | | | | [place] [address] | | | | | | [phone] | | | | | | | | +--------+ + + + + documented as of this encounter Visit Diagnoses Not on filedocumented in this encounter"
--- OUTSIDE RECORDS SUMMARY | ~2020-04-30 | XMS | Encounter Summary ---
Demographics + + + | Address | [address] | | | [place] [address] | + + + | Home Phone | | + + + | Preferred Language | Unknown | + + + | Marital Status | | + + + | Faith Affiliation | 1013 | + + + | Race | Unknown | + + + | Ethnic Group | Unknown | + + + Author + + + | Author | [facility] | | | and [place] | + + + | Organization | [facility] | | | [...] Team Providers + +------+ + | Care Database Dba Name | Role | Phone | + +------+ + PCP | Unavailable | + +------+ + Encounter Details +--------+ + + + + | Date | Type | Department | Care Team | Description | +--------+ + + + + | 03/24/ | Orders Only | [facility] [place] | Juan Paris | Hyperlipidemia | | 2014 | | NEPHROLOGY [address] | M, DO [address] | (Primary Dx); | | | | [address] | [address] [place] | MEMBRANOUS | | | | [place] | [place] [address] | GLOMERULONEPHRITIS | | | | [address] | [phone] | | | | | [phone] | | | +--------+ + + + [...] encounter Progress Notes Naida Forman RN - 03/24/2014 9:53 AM [facility] for nephrology appt on 05/04/14 sent to [facility] documented in this encounter Plan of Treatment [...] | | | | | [place] [address] | | | | | | [phone] | | | | | | | | +--------+ + + + + | 07/23/ | Office | Pulmonology | Jt Roman | | | 2019 | Visit | | Tony Edwards MD [address] | | | | [address] | | | | | | [place] [address] | | | | | | [phone] | | | | | | | | +--------+ + + + + + +------+--------+ + + | Name | Type | Priori | Associated Diagnoses | Order Schedule | | | | ty | | | + +------+--------+ + + | CBC with | Lab | Routin | MEMBRANOUS | Expected: 04/27/2014 | | Differential | | e | GLOMERULONEPHRITIS | (Approximate), | | | | | | Expires: 03/24/2015 | + +------+--------+ + + | Comprehensive | Lab | Routin | MEMBRANOUS | Expected: 04/27/2014 | | Metabolic Panel | | e | GLOMERULONEPHRITIS | (Approximate), | | | | | | Expires: 03/24/2015 | + +------+--------+ + + | Protein, Urine, 24Hr | Lab | Routin | MEMBRANOUS | Expected: 04/27/2014 | | | | e | GLOMERULONEPHRITIS | (Approximate), | | | | | | Expires: 03/24/2015 | + +------+--------+ + + | Creatinine | Lab | Routin | MEMBRANOUS | Expected: 04/27/2014 | | Clearance, Result | | e | GLOMERULONEPHRITIS | (Approximate), | | | | | | Expires: 03/24/2015 | + +------+--------+ + + | Phosphorus | Lab | Routin | MEMBRANOUS | Expected: 04/27/2014 | | | | e | GLOMERULONEPHRITIS | (Approximate), | | | | | | Expires: 03/24/2015 | + +------+--------+ + + | Lipid Panel | Lab | Routin | Hyperlipidemia | Expected: 04/27/2014 | | | | e | MEMBRANOUS | (Approximate), | | | | | GLOMERULONEPHRITIS | Expires: 03/24/2015 | + +------+--------+ + + documented as of this encounter Visit Diagnoses + + | Diagnosis | + + | Hyperlipidemia - Primary Other and unspecified hyperlipidemia | + + | MEMBRANOUS GLOMERULONEPHRITIS Nephritis and nephropathy, 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
--- OUTSIDE RECORDS SUMMARY | ~2020-04-30 | XMS | Encounter Summary ---
Demographics + + + | Address | [address] | | | [place] [address] | + + + | Home Phone | | + + + | Preferred Language | Unknown | + + + | Marital Status | | + + + | Latter Day Affiliation | 1013 | + + + [...] Team Providers + +------+ + | Care Agency Legal Counsel Name | Role | Phone | + +------+ + PCP | Unavailable | + +------+ + Reason for Visit + + + | Reason | Comments | + + + | Nephritis | | + + + Evaluate & Treat (Routine) +--------+--------+ + + [...] | | | | | not | [place] | [address] | | | | | specified as | [address] | [place], | | | | | acute or | [place], | [place] [address] | | | | | chronic, | [place] | Phone: | | | | | with lesion | [address] | [phone] | | | | | of | Phone: | Fax: | | | | | membranous | [phone] | [phone] | | | | | glomerulonep | Fax: | | | | | | hritis | [phone] | | | | | | Unspecified [...] | | | | | | | MA OFFICE | | | | | | | OUTPATIENT | | | | | | | VISIT 25 | | | | | | | MINUTES | | | +--------+--------+ + + + + Encounter Details +--------+---------+ + + + | Date | Type | Department | Care Team | Description | +--------+---------+ + + + | 01/11/ | Office | [facility] | Juan Paris | 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 | Visit | NEPHROLOGY [address] | M, DO [address] | glomerulonephritis | | | | [address] | [address] [place] | (Primary Dx); | | | | [place], [place] | [place] [address] | Essential | | | | [address] | [phone] | hypertension, | | | | [phone] | | benign; Proteinuria; | | | | | | Type 2 diabetes | | | | | | mellitus with stage | | | | | | 2 chronic kidney | | | | | | disease (HCC) | +--------+---------+ + + + Social History [...] + + + | Blood Pressure | 130/78 | 01/12/2016 8:57 AM | | | | | PDT | | + + + + + | Pulse | 62 | 01/12/2016 8:57 AM | | | | | PDT | | + + + + + | Temperature | 36.2 C (97.1 F) | 01/12/2016 8:57 AM | | | | | PDT | | + + + + + | Respiratory Rate | - | - | | + + + + + | Oxygen Saturation | 98% | 01/12/2016 8:57 AM | | | | | PDT | | + + + + + | Inhaled Oxygen | - | - | | | Concentration | | | | + + + + + | Weight | 93.1 kg (205 lb 4.8 | 01/12/2016 8:57 AM | | | | oz) | PDT | | + + + + + | Height | - | - | | + + + + + | Body Mass Index | 29.46 | 10/14/2015 11:14 AM | | | | | PST | | + + + + + documented in this encounter Progress Notes Fawn Oquendo - 01/17/2016 1:28 PM PDTNephrology progress note with letter from 01-15-16 manually faxed to Yunior Pope, [facility] (ph: ), (fx: [phone]) and to Heron Garcia MD on 01/17/16. Juan Hernandez DO - 01/12/2016 8:44 AM PDTFo rmatting of this note might be different from the original. Subjective: NEPHROLOGY Patient ID: Sierra Roman is a 65 y.o. male. HPI Comments: Followup for this 65 YO white male with apparent, relapsing biopsy-proven membranous GN, who is status post 6 months prednisone/12 months mycophenolate, in 2004, hyperlipidemia, st eroid-induced Type II DM, remote history of diverticulitis, and COPD. He had a very thorough evaluation with Dr. Sandi Pope, at the [facility]. After discussion , Sierra is open to the prospect of repeat Bx, however, his BP was trending upward in the las t 2 weeks, w/o any increased edema. His meds were astutely adjusted by his Artist Manager, Dr. Rico Garcia, and his BP has improved. His BP log is reviewed today, and his home readings h ome readings appear consistently < 140/88 mmHg for the past week. He denies new edema, alth ough he has noted modest ankle edema, for months. Denies new hematuria, flank pain, night sw eats, or worsening dyspnea. He unfortunately, does continue to smoke despite advice to quit . His proteinuria has decreased somewhat from a previous of => 2130 mg/day(04/29/15) => 4912 mg/day(09/27/15) => 1078 mg/day, currently. He believes he may have missed void with this collection, but still appears to be trending down. Possibly coinciding with his improvement in BP? Outpatient Prescriptions Marked as Taking for the 01/12/16 encounter (Office Visit) with John Paris, DO Medication Sig Dispense Refill albuterol 2.5 mg/3 mL nebulizer solution Use in nebulizer every 4 hours as needed for s hortness of breath albuterol 90 mcg/puff inhaler Inhale 2 puffs into the lungs every 6 hours as needed for Wheezing. amLODIPine (NORVASC) 2.5 mg tablet Take 5 mg by mouth nightly. ASMANEX 60 METERED DOSES 220 MCG/INH inhaler INHALE 1 DOSE BY MOUTH TWICE DAILY 1 Inhal er 5 aspirin 81 MG EC tablet Take 81 mg by mouth Daily. Calcium Carb-Cholecalciferol 600-800 MG-UNIT TABS Take 2 tablets by mouth Daily. finasteride (PROSCAR) 5 mg tablet Take 5 mg by mouth Daily. furosemide (LASIX) 40 mg tablet Take 40 mg by mouth 2 times daily. losartan (COZAAR) 100 MG tablet Take 100 mg by mouth nightly. metoprolol succinate (TOPROL-XL) 50 mg 24 hr tablet Take 50 mg by mouth 2 times daily. Misc Natural Products (MIDNITE) CHEW Take by [...] Allergen Reactions Amoxicillin Rash Objective: Blood pressure 130/78, pulse 62, temperature 36.2 C (97.1 F), weight 93.123 kg (205 lb 4.8 oz), SpO2 98 %. Physical Exam Heart: Regular rate and rhythm with no S3, S4, murmur or rub. Lungs: Decreased breath sounds bilaterally, no rales or wheezes. Abdomen: Soft, flat, nontender, normoactive bowel sounds. Extremities: 1+ ankle edema, no clubbing, no rash; no foot ulcers. Lab Results Component Value Date NA 142 04/27/2014 K 4.1 04/27/2014 CL 108 04/27/2014 CO2 21 04/27/2014 BUN 15 04/27/2014 CREEX 0.95 01/03/2016 EGFREX 79 01/03/2016 GLU 80 04/27/2014 CALCIUM 9.2 04/27/2014 PHOS 2.7 04/27/2014 PTH 9.5 03/04/2013 IGI4BTY 6.1 12/22/2015 Lab Results Component Value Date CHOLEX 164 04/29/2015 HDLEX 66.3 04/29/2015 LDLEX 85 04/29/2015 TRIGEX 63 04/29/2015 Lab Results Component Value Date WBCEX 10.6 01/03/2016 HGBEX 14.5 01/03/2016 HCTEX 44.2 01/03/2016 PLTEX 239 01/03/2016 Lab Results Component Value Date CRCLEARANCE 69.0* 01/06/2016 PROTEX 1078* 01/06/2016 Assessment: 1. 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 2. Hypertension--recently accelerated, but improved on additional drug Rx. 3. Hyperlipidemia--on statin Rx. 4. Steroid-induced Type II DM-- stable by the most recent Hba1c. 5. COPD--stable on inhaled BD's. Plan: 1. I told Sierra that I would send Dr. Pope a letter, as well as today's note that his BP is improved to the point, it may be safe to proceed with renal core Bx. I discussed with Sierra that the Bx may entail I.R. o r a Renal Fellow, i.e.. Nephology Specialist in training, and he and his family are absolutely OK with this. He understands that Dr. Pope and h is Team of Renal Pathologists will provide expert review of the histopathology, make treatment recommendations, that we could carry out here locally in [place] and [place]. 2. I discussed that the modest reduction in proteinuria is a favorable sign, but again cou ld be related to improved BP control as apparently, Sierra was as high as 185/90 mmHg last week. 3. Will continue his ARB, lasix and other meds for now. 4. Will plan to see him back in 2 mo. , and will adjust this sooner , depending on potent ial timing of the Bx. I greatly appreciate Dr. Pope and Dr. Garcia's help. : Rico Garcia M.D., [place] Sandi Pope MD, [facility], Nephrology Section, [facility], [place], [facility] Cal Rivera MD A M PDTdocumented in this encounter Plan of Treatment +--------+ + + + + | Date | Type | Specialty | Care Team | Description | +--------+ + + + + | 05/24/ | Off-Site | Nephrology | Juan Paris | | | 2020 | Visit | | MDO [address] | | | | | | [facility] | | | | | | [place] [address] | | | | | | [phone] | | | | | | | | +--------+ + + + + | 07/23/ | Office | Pulmonology | Jt Roman | | | 2019 | Visit | | Tony Edwards MD [address] | | | | [address] | | | | | | [place] [address] | | | | | | [phone] | | | | | | | | +--------+ + + + + documented as of this encounter Procedures + +--------+ + + + | Procedure Name | Priori | Date/Time | Associated Diagnosis | Comments | | | ty | | | | + +--------+ + + + | POCT URINALYSIS, | Routin | 01/12/2016 | Membranous | Results for this | | AUTO WITH CONF | e | 9:07 AM | glomerulonephritis | procedure are in the | | | | PDT | Proteinuria | results section. | | | | | Essential | | | | | | hypertension, benign | | | | | | Type 2 diabetes | | | | | | mellitus with stage | | | | | | 2 chronic kidney | | | | | | disease (HCC) | | + +--------+ + + + | LABS - EXTERNAL SCAN | | 01/06/2016 | Membranous | Results for this | | | | 12:00 AM | glomerulonephritis | procedure are in the | | | | PDT | Essential | results section. | | | | | hypertension, benign | | | | | | Proteinuria Type | | | | | | 2 diabetes mellitus | | | | | | with stage 2 chronic | | | | | | kidney disease | | | | | | (HCC) | | + +--------+ + + + documented in this encounter Results POCT Urinalysis Dipstick Automated (01/12/2016 9:07 AM PDT) + + + + + + | Component | Value | Ref Range | Performed | Pathologist | | | | | At | Signature | + + + + + + | Color, UA, | Yellow | Yellow, Light | | | | POC | | Yellow | | | + + + + + + | Clarity, | Clear | | | | | UA, POC | | | | | + + + + + + | Glucose, | Negative | Negative | | | | UA, POC | | | | | + + + + + + | Bilirubin, | Negative | Negative | | | | UA, POC | | | | | + + + + + + | Ketones, | Negative | Negative, 100 | | | | UA, POC | | mg/dL | | | + + + + + + | Specific | 1.015 | 1.001 - 1.030 | | | | [place], | | | | | | UA, POC | | | | | + + + + + + | Blood, UA, | Trace Lysed (A) | Negative | | | | POC | | | | | + + + + + + | pH, UA, POC | 5.0 | 5.0, 6.0, 7.0, | | | | | | 8.0, 5.5, 6.5, | | | | | | 7.5 | | | + + + + + + | Protein, | >=300 mg/dL (A) | Negative | | | | UA, POC | | | | | + + + + + + | Urobilinoge | 0.2 | 0.2, Negative, | | | | n, UA, POC | | Normal, < 0.2 | | | | | | mg/dL, 1 mg/dL, | | | | | | < 0.2 E.U./dl, | | | | | | 1.0 E.U./dL, | | | | | | 0.2 mg/dL | | | + + + + + + | Nitrite, | Negative | Negative | | | | UA, POC | | | | | + + + + + + | Leukocyte | Negative | Negative | | | | Esterase, | | | | | | UA, POC | | | | | + + + + + + | Reducing | | | | | | Substances, | | | | | | Urine | | | | | + + + + + + | Bilirubin | | Negative | | | | Confirmatio | | | | | | n by | | | | | | Ictotest, | | | | | | Urine | | | | | + + + + + + | Remark | | | | | + + + + + + + + | Specimen | + + | Urine specimen | | (specimen) | + + LABS - EXTERNAL SCAN (01/06/2016 12:00 AM PDT) + + + | [...] Essential hypertension, benign | + + | Proteinuria | + + | Type 2 diabetes mellitus with stage 2 chronic kidney disease (HCC) Type II or | | unspecified type diabetes mellitus with renal manifestations, not stated as uncontrolled | + + documented in this encounter"
--- OUTSIDE RECORDS SUMMARY | ~2020-04-30 | XMS | Encounter Summary ---
Demographics + + + | Address | [address] | | | [place] [address] | + + + | Home Phone | | + + + | Preferred Language | Unknown | + + + | Marital Status | | + + + | Adventist Affiliation | 1013 | + + + | Race | Unknown | + + + | Ethnic Group | Unknown | + + + Author + + + | Author | [facility] | | | and [place] | + + + | Organization | [facility] | | [...] Team Providers + +------+ + | Care Drapery Counselor Name | Role | Phone | + +------+ + PCP | Unavailable | + +------+ + Reason for Visit +--------+--------+ + | Reason | Onset | Comments | | | Date | | +--------+--------+ + | Other | 01/24/ | Kidney biopsy scheduled | | | 2015 | | +--------+--------+ + Encounter Details +--------+ + + + + | Date | Type | Department | Care Team | Description | +--------+ + + + + | 01/24/ | Telephone | [facility] | Juan Paris | Other (Kidney biopsy | | 2016 | | NEPHROLOGY [address] | M, DO [address] | scheduled) | | | | [address] | [address] [facility] | | | | | [place], [place] | [place] [address] | | | | | [address] | [phone] | | | | | [phone] | | | +--------+ + + + [...] this encounter Miscellaneous Notes Telephone Encounter - Fawn Oquendo - 01/25/2016 3:13 PM Denise's , Kortney is calling to let Dr. Paris know that the kidney biopsy is scheduled at the [facility] at 1:00 pm on , 01-27-16. documented in this encounter Plan of Treatment +--------+ + + + + | Date | Type | Specialty | Care Team | Description | +--------+ + + + + | 05/24/ | Off-Site | Nephrology | Juan Paris | | | 2019 | Visit | | DO Nisreen [address] | | | | | | [place] | | | | | | [place] [address] | | | | | | [phone] | | | | | | | | +--------+ + + + + | 07/23/ | Office | Pulmonology | Jt Roman | | | 2020 | Visit | | Tony Edwards MD [address] | | | | | [address] | | | | | | [place] [address] | | | | | | [phone] | | | | | | | | +--------+ + + + + documented as of this encounter Visit Diagnoses Not on filedocumented in this encounter"
--- OUTSIDE RECORDS SUMMARY | ~2020-04-30 | XMS | Encounter Summary ---
Demographics + + + | Address | [address] | | | [place] [address] | + + + | Home Phone | | + + + | Preferred Language | Unknown | + + + | Marital Status | | + + + | Sabianism Affiliation | 1013 | + + + | Race | Unknown | + + + | Ethnic Group | Unknown | + + + Author + + + | Author | [facility] | | | and [place] | + + + | Organization | [facility] | | | [...] Team Providers + +------+ + | Care Weather Forcaster Name | Role | Phone | + +------+ + | Meme Burgos MD | PCP | | + +------+ + Reason for Visit + + + | Reason | Comments | + + + | Screening For | | | Communicable Disease | | + + + Encounter Details +--------+ + + + + | Date | Type | Department | Care Team | Description | +--------+ + + + + | 04/04/ | Clinical | [facility] | Terrence Lopez | Preoperative testing | | 2020 | Support | CARE [address] | [address] [address] | (Primary Dx) | | | | [place] | [address] [place] | | | | | [address] | [place] [address] | | | | | [phone] | [phone] | | | | | | | [...] + + + | Blood Pressure | - | - | | + + + + + | Pulse | 89 | 04/04/2020 11:13 AM | | | | | PDT | | + + + + + | Temperature | 36.5 C (97.7 F) | 04/04/2020 11:13 AM | | | | | PDT | | + + + + + | Respiratory Rate | - | - | | + + + + + | Oxygen Saturation | 91% | 04/04/2020 11:13 AM | base line normal | | | | PDT | with COPD | + + + + + | Inhaled Oxygen | - | - | | | Concentration | | | | + + + + + | Weight | - | - | | + + + + + | Height | - | - | | + + + + + | Body Mass Index | - | - | | + + + + + documented in this encounter Progress Notes Sandra Pepper RN - 04/04/2020 11:10 AM PDTPRE-PROCEDURE COVID TEST Affix Patient Label [] Photo ID Verified Patient Name:Sierra Roman Provider:MACEY Chavez :1950 Date:04/04/20 MyChart: Pending Activation Symptom Screen: Are you experiencing any of the following symptoms? [] Cough: duration of cough? ___ days ? If symptoms or cough >10 days, send to for provider evaluation [] Shortness of breath ? Confer with provider or send in to UC if obviously having labored breathing [] Fever >100.4 [] Chills and/or repeated shaking with chills [] Sore Throat [] Body Aches or Muscle Pain [] Headache [] Chest Pain, warm hand transfer to RN inside (Room 1 for triage) [] Abdominal Pain [] Nausea [] Vomiting [] Diarrhea [] Change in Sense of Smell and/or Taste Testing Protocol: MA/RN Proceed to testing if ANY of the following conditions are present: DRIVE THRU SWAB SCREENING [x] Asymptomatic, regardless of age, pre-procedure screening only [] Asymptomatic - testing requested by authorized [facility] personnel, [facility] Infection Prevention Nurse or Caregiver Health [] Asymptomatic, regardless of age, pre-travel screening only [] Age 15-70 with any symptoms indicated in MA screening [] Age >70 with Temp <100.4 F, O2 sat >95%, Pulse <100 bpm, without cough, Hx of fever, ch ills, chest pain, SOB, abdominal pain, vomiting or diarrhea. If only symptom is sore throat, body aches, headache and change in taste or smell ok for drive thru testing. PROVIDER EVALUATION REQUIRED [] Patient Requested [] Temp >102 F [x] O2 Sat ? 95% (patient has COPD and is normally 90-93%) [] Pulse > 100 [] Symptomatic with any listed comorbidities [] Dominant sore throat with little or no cough (strep rule out) [] Age <15 years old with symptoms Discharge: [x] Social Distancing/Quarantine Guidelines documented in this encounter Plan of Treatment +--------+ + + + + | Date | Type | Specialty | Care Team | Description | +--------+ + + + + | 05/24/ | Off-Site | Nephrology | Juan Paris | | 2019 | Visit | | M DO [address] | | | | | | [place] | | | | | | [place] [address] | | | | | | [phone] | | | | | | | | +--------+ + + + + | 07/23/ | Office | Pulmonology | Jt Roman | | | 2019 | Visit | | Tony Edwards MD [address] | | | | | [address] | | | | | | [place] [address] | | | | | | [phone] | | | | | | | | +--------+ + + + + documented as of this encounter Procedures + +--------+ + + + | Procedure Name | Priori | Date/Time | Associated Diagnosis | Comments | | | ty | | | | + +--------+ + + + | CORONAVIRUS | Routin | 04/04/2020 | Preoperative | Results for this | | (COVID-19) NAAT | e | 11:12 AM | testing | procedure are in the | | | | PDT | | results section. | + +--------+ + + + documented in this encounter Results Coronavirus (COVID-19) NAAT (04/04/2020 11:12 AM PDT) + + + + + + | Component | Value | Ref Range | Performed | Pathologist | | | | | At | Signature | + + + + + + | SARS-CoV-2, | Not DetectedComment: | Not Detected | REFERENCE | | | NAAT | Testing was performed | | LAB [facility] | | | (COVID-19) | using the [employer]ptima | | - [facility] | | | | SARS-CoV-2 assay.This | | | | | | test was developed and | | | | | | its performance | | | | | | characteristics | | | | | | determinedby [facility] | | | | | | Laboratories. This test | | | | | | has not been FDA cleared | | | | | | orapproved. This test | | | | | | has been authorized by | | | | | | FDA under an Emergency | | | | | | UseAuthorization (EUA). | | | | | | This test is only | | | | | | authorized for the | | | | | | duration oftime the | | | | | | declaration that | | | | | | circumstances exist | | | | | | justifying | | | | | | theauthorization of the | | | | | | emergency use of in | | | | | | vitro diagnostic tests | | | | | | fordetection of | | | | | | SARS-CoV-2 virus and/or | | | | | | diagnosis of COVID-19 | | | | | | infectionunder section | | | | | | 564(b)(1) of the Act, 21 | | | | | | U.S.C. 360bbb-3(b)(1), | | | | | | unlessthe authorization | | | | | | is terminated or revoked | | | | | | sooner.When diagnostic | | | | | | testing is negative, the | | | | | | possibility of a | | | | | | falsenegative result | | | | | | should be considered in | | | | | | the context of a | | | | | | patient'srecent | | | | | | exposures and the | | | | | | presence of clinical | | | | | | signs and | | | | | | symptomsconsistent with | | | | | | COVID-19. An individual | | | | | | without symptoms of | | | | | | COVID-19and who is not | | | | | | shedding SARS-CoV-2 | | | | | | virus would expect to | | | | | | have anegative (not | | | | | | detected) result in this | | | | | | assay. | | | | + + + + + + + + | Specimen | + + | Tissue - Specimen | | from throat | | (specimen) | + + + + + | Narrative | Performed At | + + + | Performed at: [address] [facility] [address], | REFERENCE LAB | | [place], [place] [id number] Emblem Fuser Tender: Shaquille Nguyen MD, Phone: | [facility] | | [phone] | | + + + + + + + + | Performing | Address | City/State/Zipcode | Phone Number | | Organization | | | | + + + + + | REFERENCE LAB | [address] | [place] | [phone] | | [facility] | [address] | [address] | | + + + + + documented in this encounter Visit Diagnoses + + | Diagnosis | + + | Preoperative testing - Primary Preoperative examination, unspecified | + + documented in this encounter"
--- OUTSIDE RECORDS SUMMARY | ~2020-04-30 | XMS | Encounter Summary ---
Demographics + + + | Address | [address] | | | [place] [address] | + + + | Home Phone | | + + + | Preferred Language | Unknown | + + + | Marital Status | | + + + | Catholic Affiliation | 1013 | + + + | Race | Unknown | + + + | Ethnic Group | Unknown | + + + Author + + + | Author | [facility] | | | and [place] | + + + | Organization | [facility] | | | [...] Team Providers + +------+ + | Care Environmental Associate Name | Role | Phone | + +------+ + PCP | Unavailable | + +------+ + Encounter Details +--------+ + + + + | Date | Type | Department | Care Team | Description | +--------+ + + + + | 10/31/ | Abstract | [facility] | Juan Paris | | | 2012 | | Care [address] | M, DO [address] | | | | | [address], | [address] [place] | | | | | [place] [address] | [place] [address] | | | | | [phone] | [phone] | | | | | | | [...] [place] | | | | | | [place] [address] | | | | | | [phone] | | | | | | | | +--------+ + + + + | 07/23/ | Office | Pulmonology | Jt Roman | | | 2019 | Visit | | Tony Edwards MD [address] | | | | | [address] | | | | | | [place] [address] | | | | | | [phone] | | | | | | | | +--------+ + + + + documented as of this encounter Procedures + +--------+ + + + | Procedure Name | Priori | Date/Time | Associated Diagnosis | Comments | | | ty | | | | + +--------+ + + + | CMPI | Routin | 08/07/2012 | | Results for this | | | e | | | procedure are in the | | | | | | results section. | + +--------+ + + + | CBC WITH | Routin | 08/07/2012 | | Results for this | | DIFFERENTIAL | e | | | procedure are in the | | | | | | results section. | + +--------+ + + + documented in this encounter Results CMPi (08/07/2012) + +-------+ + + + | Component | Value | Ref Range | Performed | Pathologist | | | | | At | Signature | + +-------+ + + + | Na | 140 | mmol/L | | | + +-------+ + + + | K | 3.9 | mmol/L | | | + +-------+ + + + | Cl | 107 | mmol/L | | | + +-------+ + + + | CO2 | 31 | mmol/L | | | + +-------+ + + + | BUN | 19 | mg/dL | | | + +-------+ + + + | CREA | 1.0 | mg/dL | | | + +-------+ + + + | Glucose | 95 | mg/dL | | | + +-------+ + + + | Calcium | 9.0 | mg/dL | | | + +-------+ + + + | Bilirubin | 0.9 | 0.1 - 1.5 mg/dL | | | | Total | | | | | + +-------+ + + + | AST | 12 | 5 - 40 U/L | | | + +-------+ + + + | ALT | 14 | U/L | | | + +-------+ + + + | Alkaline | 68 | 38 - 110 U/L | | | | Phosphatase | | | | | + +-------+ + + + | Albumin | 4.1 | 3.3 - 4.8 g/dL | | | + +-------+ + + + | Estimated | 60.0 | mL/min/1.73m2 | | | | GFR | | | | | + +-------+ + + + | Cholesterol | 165 | mg/dL | | | + +-------+ + + + | Triglycerid | 71 | mg/dL | | | | es | | | | | + +-------+ + + + | HDL | 85 | mg/dL | | | + +-------+ + + + | LDL | 66 | | | | | Cholesterol | | | | | + +-------+ + + + + + | Specimen | + + | Blood specimen | | (specimen) | + + CBC with Differential (08/07/2012) + +-------+ + + + | Component | Value | Ref Range | Performed | Pathologist | | | | | At | Signature | + +-------+ + + + | White Blood | 10.4 | K/uL | | | | Cells | | | | | + +-------+ + + + | Hemoglobin | 15.6 | 13.7 - 16.7 | | | | | | g/dL | | | + +-------+ + + + | Hematocrit | 45.5 | 40.0 - 50.0 % | | | + +-------+ + + + | Platelet | 221 | 150 - 400 K/uL | | | | Count | | | | | + +-------+ + + + | MCV | 93.4 | 80.0 - 100.0 fL | | | + +-------+ + + + + + | Specimen | + + | Blood specimen | | (specimen) | + + documented in this encounter Visit Diagnoses Not on filedocumented in this encounter"
--- OUTSIDE RECORDS SUMMARY | ~2020-04-30 | XMS | Encounter Summary ---
Demographics + + + | Address | [address] | | | [place] [address] | + + + | Home Phone | | + + + | Preferred Language | Unknown | + + + | Marital Status | | + + + | Rastafari Affiliation | 1013 | + + + [...] Team Providers + +------+ + | Care Binder Chainstitch Name | Role | Phone | + +------+ + PCP | Unavailable | + +------+ + Encounter Details +--------+ + + + + | Date | Type | Department | Care Team | Description | +--------+ + + + + | 04/11/ | Orders Only | [facility] [place] | Juan Paris | 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 | | NEPHROLOGY [address] | M, DO [address] | glomerulonephritis; | | | | [address] | [address] [place] | Proteinuria; | | | | [place] | [place] [address] | Abnormal bruising | | | | [address] | [phone] | | | | | [phone] | | | +--------+ + + + [...] | | | | [address] [facility] | | | | | | [place] [address] | | | | | | [phone] | | | | | | | | +--------+ + + + + | 07/23/ | Office | Pulmonology | Jt Roman | | | 2019 | Visit | | Tony Edwards MD [address] | | | | | | [address] | | | | | | [place] [address] | | | | | | [phone] | | | | | | | | +--------+ + + + + documented as of this encounter Visit Diagnoses + + | Diagnosis | + + | Membranous glomerulonephritis Nephritis and nephropathy, 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
--- OUTSIDE RECORDS SUMMARY | ~2020-04-30 | XMS | Encounter Summary ---
Demographics + + + | Address | [address] | | | [place] [address] | + + + | Home Phone | | + + + | Preferred Language | Unknown | + + + | Marital Status | | + + + | Yazdanism Affiliation | 1013 | + + + | Race | Unknown | + + + | Ethnic Group | Unknown | + + + Author + + + | Author | [facility] | | | and [place] | + + + | Organization | [facility] | | | and [...] Providers + +------+ + | Care Hand Printed Circuit Board Assembler Name | Role | Phone | + +------+ + | Meme Burgos MD | PCP | | + +------+ + Reason for Visit +--------+ + | Reason | Comments | +--------+ + | Other | Doris CASILLAS | +--------+ + Encounter Details +--------+ + + + + | Date | Type | Department | Care Team | Description | +--------+ + + + + | 07/21/ | Documentati | [facility] | MeadowsArturo viveros, | Other (Doris George | | 2019 | on | PULMONOLOGY [address] | Table Saw Operator | SONJA) | | | | [address] | | | | | | [place] | | | | | | [address] | | | | | | [phone] | | | +--------+ + + + [...] + documented as of this encounter Progress Arturo Shea, Table Saw Operator - 07/21/2019 9:52 AM PDTFaxed order for Symbicort with salma wray notes to [facility] Received a confirmation for [phone]. documented in this encounter Plan of Treatment +--------+ + + + + | Date | Type | Specialty | Care Team | Description | +--------+ + + + + | 05/24/ | Off-Site | Nephrology | Juan Paris | | | 2019 | Visit | | DO Graeme Nielson | | | | | | [address] [facility] | | | | | | [place] [address] | | | | | | [phone] | | | | | | | | +--------+ + + + + | 07/23/ | Office | Pulmonology | Jt Roman | | | 2019 | Visit | | Tony Edwards MD [address] | | | | | | [address] | | | | | | [place] [address] | | | | | | [phone] | | | | | | | | +--------+ + + + + documented as of this encounter Visit Diagnoses Not on filedocumented in this encounter"
--- OUTSIDE RECORDS SUMMARY | ~2020-04-30 | XMS | Encounter Summary ---
Demographics + + + | Address | [address] | | | [place] [address] | + + + | Home Phone | | + + + | Preferred Language | Unknown | + + + | Marital Status | | + + + | Congregation Affiliation | 1013 | + + + | Race | Unknown | + + + | Ethnic Group | Unknown | + + + Author + + + | Author | [facility] | | | and [place] | + + + | Organization | [facility] | | | [...] Team Providers + +------+ + | Care Residential Therapist Name | Role | Phone | + +------+ + PCP | Unavailable | + +------+ + Encounter Details +--------+ + + + + | Date | Type | Department | Care Team | Description | +--------+ + + + + | 10/13/ | [facility] | [facility] | Juan Paris | Mucopurulent chronic | | 2015 | Encounter | MED CTR XRAY [address] | M, DO [address] | bronchitis (HCC); | | | | [place] | [address] [place] | 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[place] [address] | [place] [address] | glomerulonephritis; | | | | [phone] | [phone] | Type 2 diabetes | | | | | | mellitus with | | | | | | diabetic chronic | | | | | | kidney disease | | | | | | ([facility]); Essential | | | | | | hypertension | +--------+ + + + + Social History + +-------+ +--------+ + | Tobacco Use | Types | Packs/Day | Years | Date | | | | | Used | | + +-------+ +--------+ + | Former Smoker | | 0.2 | 41 | Quit: 09/29/2015 | + +-------+ +--------+ + + +---+---+---+ | Smokeless Tobacco: | | | | | Current User | | | | + +---+---+---+ + + +---------+ + | Alcohol Use | Drinks/Week | oz/Week | Comments | + + +---------+ + | Not Asked | 0 Standard drinks | 0.0 | [...] | | | | | | | ([facility]), Essential | | | | | | [...] | | | | type II ([facility]), | | | | | | | [...] + + + +---------+ + + | dutasteride | Take 0.5 mg by mouth | | 0 | | | | (AVODART) 0.5 mg | Daily. | | | | 6 | | capsuleIndications: | | | | | | | [...] + + + +---------+ + + | irbesartan | Take one tablet | | 0 | 10/07/19 | | | (AVAPRO) 300 mg | daily | | | 16 | 6 | | tablet | | | | | | + + + +---------+ + + | lisinopril | Take one tablet | | 0 | 07/13/20 | | | (PRINIVIL, ZESTRIL) | daily | | | 15 | 6 | | 10 mg tablet | | | | | | [...] + +---------+ + + | | Take one 1 tsp every | | 0 | 08/17/20 | | | promethazine-codeine | 4-8 hours as needed | | | 15 | 6 | | (PHENERGAN WITH | for cough | | | | | | CODEINE) 6.25-10 | | | | | | | mg/5 mL syrup | | | | | | + [...] + + + +---------+ + + | varenicline | Take 1 mg by mouth | | 0 | | | | (CHANTIX) 1 MG | Daily. | | | | 6 | | tabletIndications: | | | | | | | Mucopurulent chronic | | | | | | | bronchitis ([facility]), | | | | | | | 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, | | | | | | | 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 | | | | | | | ([facility]), Essential | | | | | | [...] [address] | | | | | | [address] | | | | | | [place] [address] | | | | | | [phone] | | | | | | | | +--------+ + + + + | 07/23/ | Office | Pulmonology | Jt Roman | | | 2019 | Visit | | Tony Edwards MD [address] | | | | | | [address] | | | | | | [place] [address] | | | | | | [phone] | | | | | | | | +--------+ + + + + documented as of this encounter Procedures + +--------+ + + + | Procedure Name | Priori | Date/Time | Associated Diagnosis | Comments | | | ty | | | | + +--------+ + + + | XR CHEST PA AND | Routin | 10/13/2015 | Mucopurulent | Results for this | | LATERAL | e | 12:53 PM | chronic bronchitis | procedure are in the | | | | PST | ([facility]) Membranous | results section. | | | | | glomerulonephritis | | | | | | Type 2 diabetes | | | | | | mellitus with | | | | | | diabetic chronic | | | | | | kidney disease ([facility]) | | | | | | Essential | | | | | | hypertension | | + +--------+ + + + documented in this encounter Results XR Chest PA and Lateral (10/13/2015 12:53 PM PST) + + | Specimen | + + | | + + + + + | Narrative | Performed At | + + + | XR CHEST PA AND LATERAL 10/13/2015 12:53 PM HISTORY: ex-smoker, | [facility] | | COPD, recurrent Membranous GN, need to evaluate for lung mass? | [facility] | | Thanks.. COMPARISON: None. Findings: Heart size is within | [facility] | | normal limits. Aorta is normal. Mediastinum is unremarkable. Central | - IMAGING | | pulmonary vasculature is normal. There is mild scarring in the left | | | lower lobe. Hyperinflation of the lungs is present. Mild thoracic | | | spondylosis is seen. IMPRESSION - No acute findings. | | | Hyperinflation of lungs. Dictated and Signed by: Vineet Henson MD | | | Electronically signed: 10/13/2015 1:22 PM | | + + + + + | Procedure Note | + + | Shahbaz, Rad Results In - 10/13/2015 1:25 PM PST XR CHEST PA AND LATERAL 10/13/2015 12:53 | | PMHISTORY: ex-smoker, COPD, recurrent Membranous GN, need to evaluate for lungmass? | | Thanks..COMPARISON: None.Findings:Heart size is within normal limits. Aorta is normal. | | Mediastinum isunremarkable. Central pulmonary vasculature is normal. There is mild | | scarring inthe left lower lobe. Hyperinflation of the lungs is present. Mild | | thoracicspondylosis is seen.IMPRESSION -No acute findings.Hyperinflation of | | lungs.Dictated and Signed by: Vineet Henson MD Electronically signed: 10/13/2015 1:22 PM | |Findings: | |Heart size is within normal limits. Aorta is normal. Mediastinum is | |unremarkable. Central pulmonary vasculature is normal. There is mild scarring in | |the left lower lobe. Hyperinflation of the lungs is present. Mild thoracic | |spondylosis is seen. | | | |IMPRESSION - | |No acute findings. | | | |Hyperinflation of lungs. | | | |Dictated and Signed by: Vineet Henson MD | | Electronically signed: 10/13/2015 1:22 PM | + + + + + + + | Performing | Address | City/State/Zipcode | Phone Number | | Organization | | | | + + + + + | [facility] [facility] | [address] 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
--- OUTSIDE RECORDS SUMMARY | ~2020-04-30 | XMS | Encounter Summary ---
Demographics + + + | Address | [address] | | | [place] [address] | + + + | Home Phone | | + + + | Preferred Language | Unknown | + + + | Marital Status | | + + + | Zoroastrian Affiliation | 1013 | + + + [...] Team Providers + +------+ + | Care Transformation Coach Name | Role | Phone | + +------+ + PCP | Unavailable | + +------+ + Encounter Details +--------+ + + + + | Date | Type | Department | Care Team | Description | +--------+ + + + + | 04/11/ | Orders Only | [facility] | Juan Paris | Membranous | | 2017 | | NEPHROLOGY [address] | M, DO [address] | glomerulonephritis | | | | [address] | [address] [place] | (Primary Dx); | | | | [place] | [place] [address] | Unspecified | | | | [address] | [phone] | 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 | | | | | | kidney disease | | | | | | stage I through | | | | | | stage IV, or | | | | | | unspecified | +--------+ + + + + Social [...] this encounter Progress Naida Sandoval RN - 04/11/2017 2:48 PM PDTLabs for upcoming nephrology appointment sent to: Lila documented in this encounter Plan of Treatment [...] [address] | | | | | | [place] [address] | | | | | | [phone] | | | | | | | | +--------+ + + + + | 07/23/ | Office | Pulmonology | Jt Roman | | | 2019 | Visit | | Tony Edwards MD [address] | | | | | | [address] | | | | | | [place] [address] | | | | | | [phone] | | | | | | | [...] stage IV, or unspecified | + + documented in this encounter"
--- OUTSIDE RECORDS SUMMARY | ~2020-04-30 | XMS | Encounter Summary ---
Demographics + + + | Address | [address] | | | [place] [address] | + + + | Home Phone | | + + + | Preferred Language | Unknown | + + + | Marital Status | | + + + | Jainism Affiliation | 1013 | + + + | Race | Unknown | + + + | Ethnic Group | Unknown | + + + Author + + + | Author | [facility] | | | and [place] | + + + | Organization | [facility] | | | and [...] Team Providers + +------+ + | Care Child Protection Specialist Name | Role | Phone | + +------+ + PCP | Unavailable | + +------+ + Encounter Details +--------+ + + + + | Date | Type | Department | Care Team | Description | +--------+ + + + + | 02/26/ | Abstract | [facility] [place] | Juan Paris | | | 2012 | | NEPHROLOGY [address] | M, DO [address] | | | | | [address] | [address] [place] | | | | | [place] | [place] [address] | | | | | [address] | [phone] | | | | | [phone] | | | +--------+ + + + [...] [address] | | | | | | [place] [address] | | | | | | [phone] | | | | | | | | +--------+ + + + + | 07/23/ | Office | Pulmonology | Jt Roman | | | 2019 | Visit | | Tony Edwards MD [address] | | | | | | [address] | | | | | | [place] [address] | | | | | | [phone] | | | | | | | | +--------+ + + + + documented as of this encounter Visit Diagnoses Not on filedocumented in this encounter"
--- OUTSIDE RECORDS SUMMARY | ~2020-04-30 | XMS | Encounter Summary ---
Demographics + + + | Address | [address] | | | [place] [address] | + + + | Home Phone | | + + + | Preferred Language | Unknown | + + + | Marital Status | | + + + | Worship Affiliation | 1013 | + + + | Race | Unknown | + + + | Ethnic Group | Unknown | + + + Author + + + | Author | [facility] | | | and [place] | + + + | Organization | [facility] | | | [...] Team Providers + +------+ + | Care Cabinet Assembler Name | Role | Phone | + +------+ + PCP | Unavailable | + +------+ + Reason for Visit + + + | Reason | Comments | + + + | Proteinuria | | + + + Evaluate & Treat (Routine) +--------+--------+ + + + + | Status | Reason | Specialty | Diagnoses / | Referred By | Referred To | | | | | Procedures | Contact | Contact | +--------+--------+ + + + + | Closed | | Nephrology | Diagnoses | Sitz, | Raina, | | | | | Nephritis | Heron | Juan Nielson DO | | | | | and | MD Rico | [address] | | | | | nephropathy, | [address] | | | | | not | [place] | [address] | | | | | specified as | [address] | [place], | | | | | acute or | [place], | [place] [address] | | | | | chronic, | [place] | Phone: | | | | | with lesion | [address] | [phone] | | | | | of | Phone: | Fax: | | | | | membranous | [phone] | [phone] | | | | | glomerulonep | Fax: | | | | | | hritis | [phone] | | | | | | Unspecified [...] | | | | | | | [place] OFFICE | | | | | | | OUTPATIENT | | | | | | | VISIT 25 | | | | | | | MINUTES | | | +--------+--------+ + + + + Encounter Details +--------+---------+ + + + | Date | Type | Department | Care Team | Description | +--------+---------+ + + + | 10/13/ | Office | [facility] | Juan Paris | Membranous | | 2015 | Visit | NEPHROLOGY [address] | M, DO [address] | glomerulonephritis | | | | [address] | [address] [place] | (Primary Dx); | | | | [place], [place] | [place] [address] | Mucopurulent chronic | | | | [address] | [phone] | bronchitis ([facility]); | | | | [phone] | | Type 2 diabetes | | | | | | mellitus with | | | | | | diabetic chronic | | | | | | kidney disease | | | | | | ([facility]); Essential | | | | | | hypertension | +--------+---------+ + + + Social History [...] + + + | Blood Pressure | 140/82 | 10/13/2015 10:53 AM | | | | | PST | | + + + + + | Pulse | 72 | 10/13/2015 10:53 AM | | | | | PST | | + + + + + | Temperature | - | - | | + + + + + | Respiratory Rate | - | - | | + + + + + | Oxygen Saturation | 97% | 10/13/2015 10:53 AM | | | | | PST | | + + + + + | Inhaled Oxygen | - | - | | | Concentration | | | | + + + + + | Weight | 94.3 kg (207 lb 14.4 | 10/13/2015 10:53 AM | | | | oz) | PST | | + + + + + | Height | - | - | | + + + + + | Body Mass Index | 29.2 | 02/15/2015 9:20 AM | | | | | PDT | | + + + + + documented in this encounter Progress Notes Juan Paris DO - 10/13/2015 10:45 AM PST Subjective: NEPHROLOGY Patient ID: Sierra Roman is a 65 y.o. male. HPI Comments: Followup for this 65 YO white male with apparent, relapsing biopsy-proven membranous GN, who is status post 6 months prednisone/12 months mycophenolate, in 2004, hyperlipidemia, st eroid-induced Type II DM, remote history of diverticulitis, prediabetes, and COPD. He denies any new edema, or increased BP, but unfortunately his proteinuria continues to w orsen from 2.13 g/day 5 months ago , to 4.91 g/day currently. He does continue to smoke despite advice to quit. However, he denies weight loss, fever, n ight sweats or hematuria. Overall, he states that he feels pretty well. Outpatient Prescriptions Marked as Taking for the 10/13/15 encounter (Office Visit) with John Paris DO Medication Sig Dispense Refill albuterol 2.5 mg/3 mL nebulizer solution Use in nebulizer every 4 hours as needed for s hortness of breath albuterol 90 mcg/puff inhaler Inhale 2 puffs into the lungs every 6 hours as needed for Wheezing. amLODIPine (NORVASC) 2.5 mg tablet Take 2.5 mg by mouth nightly. ASMANEX 60 METERED DOSES 220 MCG/INH inhaler INHALE 1 DOSE BY MOUTH TWICE DAILY 1 Inhal er 5 aspirin 81 MG EC tablet Take 81 mg by mouth Daily. Calcium Carb-Cholecalciferol 600-800 MG-UNIT TABS Take 2 tablets by mouth Daily. dutasteride (AVODART) 0.5 mg capsule Take 0.5 mg by mouth Daily. losartan (COZAAR) 100 MG tablet Take 100 mg by mouth nightly. metoprolol succinate (TOPROL-XL) 50 mg 24 hr tablet Take 50 mg by mouth Daily. Misc Natural Products (MIDNITE) CHEW Take by [...] Inhale 1 puff into the lungs Daily. varenicline (CHANTIX) 1 MG tablet Take 1 mg by mouth Daily. Allergies Allergen Reactions Amoxicillin Objective: Blood pressure 140/82, pulse 72, weight 94.303 kg (207 lb 14.4 oz), SpO2 97 %. Physical Exam Heart: Regular rate and rhythm with no S3, S4, murmur or rub. Lungs: Decreased breath sounds bilaterally, no rales or wheezes. Abdomen: Soft, flat, nontender, normoactive bowel sounds. Extremities: No clubbing, cyanosis, or edema. Lab Results Component Value Date NA 142 04/27/2014 K 4.1 04/27/2014 CL 108 04/27/2014 CO2 21 04/27/2014 BUN 15 04/27/2014 CREEX 0.97 09/27/2015 EGFREX 77 09/27/2015 GLU 80 04/27/2014 CALCIUM 9.2 04/27/2014 PHOS 2.7 04/27/2014 PTH 9.5 03/04/2013 OHK4JER 6.5* 09/20/2015 Lab Results Component Value Date CHOLEX 164 04/29/2015 HDLEX 66.3 04/29/2015 LDLEX 85 04/29/2015 TRIGEX 63 04/29/2015 Lab Results Component Value Date WBCEX 11.20* 09/20/2015 HGBEX 15.5 09/20/2015 HCTEX 48.4 09/20/2015 PLTEX 195 09/20/2015 Lab Results Component Value Date CRCLEARANCE 74.0* 09/27/2015 PROTEX 4912* 09/27/2015 Assessment: 1. 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 2. Hypertension--good control. 3. Hyperlipidemia--on statin Rx. 4. Steroid-induced Type II DM--in remission. 5. COPD--stable. However, he does continue to smoke despite advice to quit. Plan: 1. I had a lengthy discussion with Sierra. I discussed that the increase in proteinuria lik kris heralds relapse of his prior MGN. As he is s/p a prior lengthy course of cytoxan/predni sone, I am wondering if he would benefit from being reviewed at the idiopathic GN Clinic at [facility]? After discussion he is agreeable to this. 2. I did discuss with Sierra that there are some case reports of MGN occurring it patients w ith solid tumors, and he is a smoker. He denies fever, night sweats, hemoptysis, hematuria, melena, and believes that he has had colonoscopy when he turned 49. He is agreeable to a 2 view CXR today. 3. Will forward a letter to Dr. Sandi Pope, Glomerular Disease Section, [facility], [place], [place]. Sierra states that he is agreeable to coming for repeat evaluation. I did level wit h him that it may potentially entail repeat renal core Bx, but I emphasized to him that this is a Center of Excellence in complex GN cases, and would be worth is effort. 4. For now will keep him on his losartan, and he clinically appears relatively euvolemic. 5. Will plan to see him back on 01/10/16 at the CKD Clinic at [facility], [place], [place]. He w ill have a CBC, CMP, P04, PTH, and lipid profile one week prior to that. Will defer the 24 hr urine collection at that time. : Rico Garcia M.D., Noel Pope MD, Glomerular Disease Clinic, Nephrology Section, [facility], [place], [place] documented in thi s encounter Plan of [...] [address] | | | | | | [place] [address] | | | | | | [phone] | | | | | | | | +--------+ + + + + | 07/23/ | Office | Pulmonology | Jt Roman | | 2019 | Visit | | Tony Edwards MD [address] | | | | | [address] | | | | | | [place] [address] | | | | | | [phone] | | | | | | | | +--------+ + + + + documented as of this encounter Procedures + +--------+ + + + | Procedure Name | Priori | Date/Time | Associated Diagnosis | Comments | | | ty | | | | + +--------+ + + + | POCT URINALYSIS, | Routin | 10/13/2015 | Membranous | Results for this | | AUTO WITH CONF | e | 10:47 AM | glomerulonephritis | procedure are in the | | | | PST | Mucopurulent chronic | results section. | | | | | bronchitis (HCC) | | | | | | Type 2 diabetes | | | | | | mellitus with | | | | | | diabetic chronic | | | | | | kidney disease (HCC) | | | | | | Essential [...] need to evaluate for lung mass? | [facility] | | Thanks.. COMPARISON: None. Findings: Heart size is within | [facility] | | normal limits. Aorta is [...] | [facility] | [address] | [place] | [phone] | | [facility] | | [address] | | | - IMAGING | | | | + + + + + POCT Urinalysis Dipstick Automated (10/13/2015 10:47 AM PST) + + + + + + | Component | Value | Ref Range | Performed | Pathologist | | | | | At | Signature | + + + + + + | Color, UA, | Light Yellow | Yellow, Light | | | [...] | 1.020 | 1.001 - 1.030 | | | | [place], | | | | | | UA, POC | | | | | + + + + + + | Blood, UA, | Small (A) | Negative | | | | POC | | | | | + + + + + + | pH, UA, POC | 6.0 | 5.0, 6.0, 7.0, | | | [...] + + | Nitrite, | Negative | | | | | UA, POC [...] of membranous glomerulonephritis | + + | Mucopurulent chronic bronchitis (HCC) Mucopurulent chronic bronchitis | + + | Type 2 diabetes mellitus with diabetic chronic kidney disease (HCC) Type II or | | unspecified type diabetes mellitus with renal manifestations, not stated as uncontrolled | + + | Essential hypertension Unspecified essential hypertension | + + documented in this encounter"
--- OUTSIDE RECORDS SUMMARY | ~2020-04-30 | XMS | Encounter Summary ---
Demographics + + + | Address | [address] | | | [place] [address] | + + + | Home Phone [...] + + + | Author | [facility] | | | and [place] | + + + | Organization | [facility] | | [...] Team Providers + +------+ + | Care Nail Feeder Name | Role | Phone | + +------+ + PCP | Unavailable | + +------+ + Encounter Details +--------+ + + + + | Date | Type | Department | Care Team | Description | +--------+ + + + + | 03/20/ | Abstract | [facility] | Juan Paris | | | 2015 | | NEPHROLOGY [address] | M, DO [address] | | | | | [address] | [address] | | | | | [place] | [place] [address] | | | | | [address] | [phone] | | | | | [phone] | | | +--------+ + + + [...] Visit | | DO Nisreen [address] | | | | | | [address] | | | | | | [place] [address] | | | | | | [phone] | | | | | | | | +--------+ + + + + | 07/23/ | Office | Pulmonology | Jt Roman | | | 2019 | Visit | | Tony Edwards MD [address] | | | | | [address] | | | | | | [place] [address] | | | | | | [phone] | | | | | | | | +--------+ + + + + documented as of this encounter Procedures + +--------+ + + + | Procedure Name | Priori | Date/Time | Associated Diagnosis | Comments | | | ty | | | | + +--------+ + + + | CREATININE | Routin | 03/17/2016 | | Results for this | | CLEARANCE, RESULT | e | | | procedure are in the | | | | | | results section. | + +--------+ + + + documented in this encounter Results Creatinine Clearance, Result (03/17/2016) + + + + + + | Component | Value | Ref Range | Performed | Pathologist | | | | | At | Signature | + + + + + + | CREATININE | 64.0 (A) | 97.0 - 137.0 | [facility] | | | CLEARANCE | | mL/min | [facility] | | [facility] - | | | | | | [facility]ORATORY | | + + + + + + | 24H Urine | 1,300 | mL | [facility] | | | Volume | | | [facility] | | | | | | MEDICAL [...] + | [facility] | [address] | [place] | [phone] | | [facility] | | [address] | | | - LABORATORY | | | | + + + + + documented in this encounter Visit Diagnoses Not on filedocumented in this encounter"
--- OUTSIDE RECORDS SUMMARY | ~2020-04-30 | XMS | Encounter Summary ---
Demographics + + + | Address | [address] | | | [place] [address] | + + + | Home Phone [...] Team Providers + +------+ + | Care Sole Splitter Name | Role | Phone | + +------+ + PCP | Unavailable | + +------+ + Reason for Visit +--------+--------+ + | Reason | Onset | Comments | | | Date | | +--------+--------+ + | [place] | 03/27/ | Inna on left ring finger | | | 2015 | | +--------+--------+ + Encounter Details +--------+ + + + + | Date | Type | Department | Care Team | Description | +--------+ + + + + | 03/27/ | Telephone | [facility] | Juan Paris | Inna (Sore on left | | 2016 | | NEPHROLOGY [address] | M, DO [address] | ring finger) | | | | [address] | [address] [place] | | | | | [place], [place] | [facility] [place] [address] | | | | | [address] | [phone] | | | | | [phone] | | | +--------+ + + + [...] Notes Telephone Encounter - Fawn Oquendo - 03/29/2016 8:10 AM PDTNephrology telephone note e -faxed to Rico Garcia MD on 03/29/16. elephone Encounter - Juan Paris DO - 03/27/2016 6:09 PM PDTNEPHROLOGY Sierra's called c/o increased erythema at his ulcer at the 4 th finger of his left hand. No fever or chills. He is on Rituximab, IV. Will start TMP/SMZ-DS, one, PO, BID , x 7 day s. Will E-Rx to Noel Sanchez. He will call or see his PCP if it worsens, or Tempt. > 101.0, oral. @GAGE@ CC: Rico Garcia MD TTelephone Encounter - Fawn Oquendo - 03/27/2016 9:45 AM PDTLyautumn and his , Kortney stop ped by the office to show Dr. Paris that the sore on his left ring finger hasn't gotten a ny better. Kortney said that it just isn't healing and they are wondering if Sierra should be steven ing antibiotics. They are in town and he has infusions at 1:00 today. documented in this encounter Plan of Treatment [...] DORIS | | | | | | [place] [address] | | | | | | [phone] | | | | | | | | +--------+ + + + + | 07/23/ | Office | Pulmonology | Jt Roman | | | 2019 | Visit | | Tony Edwards MD [address] | | | | | | [address] | | | | | | [place] [address] | | | | | | [phone] | | | | | | | | +--------+ + + + + documented as of this encounter Visit Diagnoses + + | Diagnosis | + + | Ulcer of finger, with unspecified severity (HCC) - Primary | + + documented in this encounter"
--- OUTSIDE RECORDS SUMMARY | ~2020-04-30 | XMS | Encounter Summary ---
Demographics + + + | Address | [address] | | | [place] [address] | + + + | Home Phone | | + + + | Preferred Language | Unknown | + + + | Marital Status | | + + + | Jew Affiliation | 1013 | + + + [...] Team Providers + +------+ + | Care Wire Coater Name | Role | Phone | + [...] | | | | | Hypertensive | Marquez | [address] | | | | | chronic | [address] | [place], | | | | | kidney | Noel | [place] [address] | | | | | disease with | [place] | Phone: | | | | | stage 1 | [address] | [phone] | | | | | through | Phone: | Fax: | | | | | stage 4 | [phone] | [phone] | | | | | chronic | Fax: | | | | | | kidney | [phone] | | | | | | disease, or | | | | | | | unspecified | | | | | | | chronic | | | | | | | kidney | | | | | | | disease | | | | | | | Procedures | | | | | | | LA OFFICE | | | | | | | OUTPATIENT | | | | | | | VISIT 25 | | | | | | | MINUTES | | | +--------+--------+ + + + + Encounter Details +--------+ + + + + | Date | Type | Department | Care Team | Description | +--------+ + + + + | 05/28/ | Off-Site | [facility] | Juan Paris | Membranous | | 2017 | Visit | NEPHROLOGY [address] | M, DO [address] | glomerulonephritis | | | | [address] | [address] [place] | (Primary Dx); | | | | [place], [place] | [place] [address] | Unspecified | | | | [address] | [phone] | hypertensive kidney | | | | [phone] | | disease with chronic | | | | | | kidney disease | | | | | | stage I through | | | | | | stage IV, or | | | | | | unspecified; Mixed | | | | | | [...] + + + | Blood Pressure | 118/60 | 05/28/2017 5:12 PM | | | | | PDT | | + + + + + | Pulse | - | - | | + + + + + | Temperature | 36.6 C (97.8 F) | 05/28/2017 5:12 PM | | | | | PDT [...] + + + + | Weight | 89.6 kg (197 lb 8 | 05/28/2017 5:12 PM | | | | oz) | PDT | | + + + + + | Height | - | - | | + + + + + | Body Mass Index | 26.79 | 05/07/2017 11:18 AM | | | | | PDT | | + + + + + documented in this encounter Progress Juan Mena DO - 05/28/2017 4:00 PM PDT Subjective: NEPHROLOGY Patient ID: Sierra Roman is a 66 y.o. male. HPI Comments: Followup for this very pleasant, 66 YOWM with prior Bx proven, recurrent MGN, found on a 2nd renal core Bx on 01/27/16 at [facility]. He initially was treated in 2004 with 6 mo. of predn isone, then, 12 mo. of mycophenolate + 12 weeks prednisone. He was treated with 3 doses of Rituximab 1g, the last on 09/27/[address] Suki Pope at the [facility], at the [facility]. (He had his initial dose of Rituximab 1g, IVPB on 03/14/16). He does appear to be respondi ng as his proteinuria has fallen from a peak of 5.36 g in 2015 to 560 mg/day in 01/05/17 to no w 192 mg/day. He also has HTN, COPD, hyperlipidemia. He states that he had mild ankle edema one mo. ago but denies increased BP, hematuria, anorexia, or chest pain. He does state that his SNOW[place] fro m his COPD is worsening and that concerns him more than his CKD. Outpatient Prescriptions Marked as Taking for the 05/28/17 encounter (Off-Site Visit) with Nisreen Paris DO [...] CAPS Take 1 capsule by mouth Daily. losartan (COZAAR) 100 MG [...] Allergen Reactions Amoxicillin Rash Objective: Blood pressure 118/60, temperature 36.6 C (97.8 F), weight 89.6 kg (197 lb 8 oz). Physical Exam Heart: Regular rate and rhythm with no S3, S4, murmur or rub. Lungs: CTA in all rhoades. No rales or wheezes. Abdomen: Soft, flat, nontender, normoactive bowel sounds. Extremities: trace edema, no clubbing, cyanosis. Lab Results Component Value Date NAEX 140 05/03/2017 KEX 4.3 05/03/2017 CLEX 103 05/03/2017 CO2EX 26 05/03/2017 BUNEX 25 (A) 05/03/2017 CREEX 1.06 05/03/2017 EGFREX 70 05/03/2017 GLUEX 162 (A) 05/03/2017 PHOSEX 3.5 05/03/2017 LRM6VNY 6.1 12/22/2015 Lab Results Component Value Date CHOLEX 146 05/03/2017 HDLEX 99 05/03/2017 LDLEX 59 05/03/2017 TRIGEX 99 05/03/2017 Lab Results Component Value Date WBCEX 12.1 (A) 05/03/2017 HGBEX 14 05/03/2017 HCTEX 42.4 05/03/2017 PLTEX 185 05/03/2017 Lab Results Component Value Date CRCLEARANCE 83.0 (A) 05/03/2017 PROTEX 192 05/03/2017 Assessment: 1. CKD Stage I secondary to 3rd relapse of biopsy-proven membranous GN-- it appears that h is MGN has responded to his recent course of Rituximab and the proteinuria, is remitting. Additionally, he remains no rmotensive on current 2. Hypertension-- good control on losartan. 3. Hyperlipidemia--on statin Rx. 4. Steroid-induced Type II DM-- stable. 5. COPD-- compensated today. Plan: 1. I reviewed with Sierra his Scr and 24 Hr urine results. It appears that his proteinuria i s continuing to decline s/p his 3 dose course of Rituximab. Additionally, his Scr and BP are stable. 2. He will also continue his losartan for its renoprotective effect. 3 Will plans see him in 6 mo. at the CKD Clinic at [place], [place]. He will have CBC, CMP, PO4, HbA1c, iPTH, lipid profile, and 24 Hr urine one week prior to that. 4. He will continue to keep in touch with Dr. Garcia, his 1' Hvac Engineering Technician about his COPD. : Rico Garcia M.D., Noelkelsie Pope MD, [facility], Nephrology Section, [facility], [place] , [place] documented in this encounter Plan of Treatment [...] PB | | | | | | [place] [address] | | | | | | [phone] | | | | | | | | +--------+ + + + + | 07/23/ | Office | Pulmonology | Jt Roman | | | 2020 | Visit | | Tony Edwards MD [address] | | | | | | [address] | | | | | | [place] [address] | | | | | | [phone] | | | | | | | [...] classified | + + documented in this encounter"
--- OUTSIDE RECORDS SUMMARY | ~2020-04-30 | XMS | Encounter Summary ---
Demographics + + + | Address | [address] | | | [place] [address] | + + + | Home Phone [...] Team Providers + +------+ + | Care National Opelint Analyst Name | Role | Phone | + +------+ + PCP | Unavailable | + +------+ + Encounter Details +--------+ + + + + | Date | Type | Department | Care Team | Description | +--------+ + + + + | 01/03/ | Orders Only | [facility] [place] | Juan Paris | 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 | | NEPHROLOGY [address] | M, DO [address] | glomerulonephritis | | | | [address] | [address] [place] | (Primary Dx); | | | | [place] | [place] [address] | Hyperlipidemia, | | | | [address] | [phone] | unspecified | | | | [phone] | | hyperlipidemia | +--------+ + + [...] | | | | [address] [facility] | | | | | | [place] [address] | | | | | | [phone] | | | | | | | | +--------+ + + + + | 07/23/ | Office | Pulmonology | Jt Roman | | | 2019 | Visit | | Tony Edwards MD [address] | | | | [address] | | | | | | [place] [address] | | | | | | [phone] | | | | | | | | +--------+ + + + + documented as of this encounter Visit Diagnoses + + | Diagnosis | + + | Membranous glomerulonephritis - Primary Nephritis and nephropathy, not specified as | | acute or chronic, with lesion of membranous glomerulonephritis | + + | Hyperlipidemia, unspecified hyperlipidemia | + + documented in this encounter"
--- OUTSIDE RECORDS SUMMARY | ~2020-04-30 | XMS | Encounter Summary ---
Demographics + + + | Address | [address] | | | [place] [address] | + + + | Home Phone | | + + + | Preferred Language | Unknown | + + + | Marital Status | | + + + | Buddhist Affiliation | 1013 | + + + [...] Team Providers + +------+ + | Care Garden Worker Name | Role | Phone | + +------+ + PCP | Unavailable | + +------+ + Encounter Details +--------+ + + + + | Date | Type | Department | Care Team | Description | +--------+ + + + + | 09/22/ | Orders Only | [facility] [place] | Juan Paris | Proteinuria (Primary | | 2015 | | NEPHROLOGY [address] | M, DO [address] | Dx) | | | | [address] | [address] [place] | | | | | [place] | [place] [address] | | | | | [address] | [phone] | | | | | [phone] | | | +--------+ + + + [...] encounter Progress Notes Naida Forman RN - 09/22/2015 8:53 AM PSTPatient will complete 24hr urine protein to d etermine if appointment needs to be moved forward. If > 1gram, move appointment. Miguelito mandujano signed by Naida Forman RN at 09/22/2015 8:55 AM PSTdocumented in this encounter Plan of Treatment +--------+ + + + + | Date | Type | Specialty | Care Team | Description | +--------+ + + + + | 05/24/ | Off-Site | Nephrology | Juan Paris | | 2019 | Visit | | DO Nisreen [address] | | | | | | [facility] [address] [facility] | | | | | | [place] [address] | | | | | | [phone] | | | | | | | | +--------+ + + + + | 07/23/ | Office | Pulmonology | Jt Roman | | | 2019 | Visit | | Tony Edwards MD [address] | | | | | | [address] | | | | | | [place] [address] | | | | | | [phone] | | | | | | | | +--------+ + + + + documented as of this encounter Visit Diagnoses + + | Diagnosis | + + | Proteinuria - Primary | + + documented in this encounter"
--- OUTSIDE RECORDS SUMMARY | ~2020-04-30 | XMS | Encounter Summary ---
Demographics + + + | Address | [address] | | | [place] [address] | + + + | Home Phone | | + + + | Preferred Language | Unknown | + + + | Marital Status | | + + + | Protestant Affiliation | 1013 | + + + | Race | Unknown | + + + | Ethnic Group | Unknown | + + + Author + + + | Author | [facility] | | | and [place] | + + + | Organization | [facility] | | [...] Team Providers + +------+ + | Care Rolled Seat Trimmer Name | Role | Phone | + +------+ + PCP | Unavailable | + +------+ + Encounter Details +--------+ + + + + | Date | Type | Department | Care Team | Description | +--------+ + + + + | 12/22/ | Abstract | [facility] [place] | Juan Paris | | | 2017 | | NEPHROLOGY [address] | M, DO [address] | | | | | [address] | [address] [place] | | | | | [place] | [place] [address] | | | | | [address] | [phone] | | | | | [phone] | | | +--------+ + + + [...] this encounter Progress Notes Fawn Oquendo - 12/22/2016 2:56 PM PDTOutside record: Progress note received from Nick Garcia MD, dos: 12/19/16. Sent to scan.Electronically signed by Fawn Oquendo at 11/30 2:57 PM PDTdocumented in this encounter Plan of Treatment [...] | | | | | | [place] [address] | | | | | | [phone] | | | | | | | | +--------+ + + + + | 07/23/ | Office | Pulmonology | Jt Roman | | | 2019 | Visit | | Tony Edwards MD [address] | | | | | | [address] | | | | | | [place] [address] | | | | | | [phone] | | | | | | | | +--------+ + + + + documented as of this encounter Visit Diagnoses Not on filedocumented in this encounter"
--- OUTSIDE RECORDS SUMMARY | ~2020-04-30 | XMS | Encounter Summary ---
Demographics + + + | Address | [address] | | | [place] [address] | + + + | Home Phone | | + + + | Preferred Language | Unknown | + + + | Marital Status | | + + + | Adventist Affiliation | 1013 | + + + | Race | Unknown | + + + | Ethnic Group | Unknown | + + + Author + + + | Author | [facility] | | | and [place] | + + + | Organization | [facility] | | [...] Team Providers + +------+ + | Care Flotation Tender Name | Role | Phone | + +------+ + PCP | Unavailable | + +------+ + Reason for Referral Diagnostic/Screening (Routine) + +--------+ + + + + | Status | Reason | Specialty | Diagnoses / | Referred By | Referred To | | | | | Procedures | Contact | Contact | + +--------+ + + + + | Canceled | | Radiology | Diagnoses | [place], | [address] | | | | | Mass of | Juan M, | [place] | | | | | left kidney | DO [address] | [place], | | | | | Procedures | [address] | [place] [address] | | | | | CT Abdomen | [address] | Phone: | | | | | Pelvis w | [place], | [phone] | | | | | Contrast | [place] [address] | Fax: | | | | | | Phone: | [phone] | | | | | | [phone] | | | | | | | Fax: | | | | | | | [phone] | | + +--------+ + + + + Encounter Details +--------+ + + + + | Date | Type | Department | Care Team | Description | +--------+ + + + + | 03/02/ | Orders Only | [facility] [place] | Juan Paris | Mass of left kidney | | 2016 | | NEPHROLOGY [address] | M, DO [address] | (Primary Dx) | | | | [address] | [address] [place] | | | | | [place], [place] | [place] [address] | | | | | [address] | [phone] | | | | | [phone] | | | +--------+ + + + [...] [address] | | | | | | [place] [address] | | | | | | [phone] | | | | | | | | +--------+ + + + + | 07/23/ | Office | Pulmonology | Jt Roman | | | 2019 | Visit | | Tony Edwards MD [address] | | | | | | [address] | | | | | | [place] [address] | | | | | | [phone] | | | | | | | | +--------+ + + + + + +---------+--------+ + + | Name | Type | Priori | Associated Diagnoses | Order Schedule | | | | ty | | | + +---------+--------+ + + | CT Abdomen Pelvis w | Imaging | Routin | Mass of left | Expected: | | Contrast | | e | kidney | 03/02/2016, Expires: | | | | | | 03/02/2017 | + +---------+--------+ + + documented as of this encounter Visit Diagnoses + + | Diagnosis | + + | Mass of left kidney - Primary Unspecified disorder of kidney and ureter | + + documented in this encounter"
--- OUTSIDE RECORDS SUMMARY | ~2020-04-30 | XMS | Encounter Summary ---
Demographics + + + | Address | [address] | | | [place] [address] | + + + | Home Phone [...] + + | Author | [facility] | | | and [place] | + + + | Organization | [facility] | | [...] Team Providers + +------+ + | Care Button And Buckle Maker Name | Role | Phone | + +------+ + | Meme Burgos MD | PCP | | + +------+ + Encounter Details +--------+ + + + + | Date | Type | Department | Care Team | Description | +--------+ + + + + | 04/23/ | Orders Only | [facility] | Juan Paris | Chronic kidney | | 2019 | | NEPHROLOGY [address] | M, DO [address] | disease, stage II | | | | [address] | [address] [place] | (mild) (Primary Dx); | | | | [place], [place] | [place] [address] | Mixed | | | | [address] | [phone] | hyperlipidemia | | | | [phone] | | | +--------+ + + + [...] + documented as of this encounter Progress Mariam Wong RN - 04/23/2020 11:30 AM PDTLabs for nephrology appt on 05/24/[address] [facility]. documented in this en counter Plan of [...] PB | | | | | | [place] [address] | | | | | | [phone] | | | | | | | | +--------+ + + + + | 07/23/ | Office | Pulmonology | Jt Roman | | 2019 | Visit | | Tony Edwards MD [address] | | | | [address] | | | | | | [place] [address] | | | | | | [phone] | | | | | | | | +--------+ + + + + + +------+--------+ + + | Name | Type | Priori | Associated Diagnoses | Order Schedule | | | | ty | | | + +------+--------+ + + | CBC with | Lab | Routin | Chronic kidney | 1 Occurrences | | Differential | | e | disease, stage II | starting 04/23/2020 | | | | | (mild) Mixed | until 04/24/2021 | | | | | hyperlipidemia | | + +------+--------+ + + | Comprehensive | Lab | Routin | Chronic kidney | 1 Occurrences | | Metabolic Panel | | e | disease, stage II | starting 04/23/2020 | | | | | (mild) Mixed | until 04/24/2021 | | | | | hyperlipidemia | | + +------+--------+ + + | Phosphorus | Lab | Routin | Chronic kidney | 1 Occurrences | | | | e | disease, stage II | starting 04/23/2020 | | | | | (mild) Mixed | until 04/24/2021 | | | | | hyperlipidemia | | + +------+--------+ + + | Vitamin D, | Lab | Routin | Chronic kidney | 1 Occurrences | | Deficiency Screen | | e | disease, stage II | starting 04/23/2020 | | (25-Hydroxy) | | | (mild) Mixed | until 04/24/2021 | | | | | hyperlipidemia | | + +------+--------+ + + | Parathyroid Hormone, | Lab | Routin | Chronic kidney | 1 Occurrences | | Intact | | e | disease, stage II | starting 04/23/2020 | | | | | (mild) Mixed | until 04/24/2021 | | | | | hyperlipidemia | | + +------+--------+ + + | Lipid Profile | Lab | Routin | Chronic kidney | 1 Occurrences | | | | e | disease, stage II | starting 04/23/2020 | | | | | (mild) Mixed | until 04/23/2021 | | | | | hyperlipidemia | | + +------+--------+ + + | Creatinine | Lab | Routin | Chronic kidney | 1 Occurrences | | Clearance, Result | | e | disease, stage II | starting 04/23/2020 | | | | | (mild) Mixed | until 04/24/2021 | | | | | hyperlipidemia | | + +------+--------+ + + | Protein, Urine, 24Hr | Lab | Routin | Chronic kidney | 1 Occurrences | | | | e | disease, stage II | starting 04/23/2020 | | | | | (mild) Mixed | until 04/24/2021 | | | | | hyperlipidemia | | + +------+--------+ + + documented as of this encounter Visit Diagnoses + + | Diagnosis | + + | Chronic kidney disease, stage II (mild) - Primary Chronic kidney disease, Stage II | | (mild) | + + | Mixed hyperlipidemia | + + documented in this encounter"
--- OUTSIDE RECORDS SUMMARY | ~2020-04-30 | XMS | Encounter Summary ---
Demographics + + + | Address | [address] | | | [place] [address] | + + + | Home Phone | | + + + | Preferred Language | Unknown | + + + | Marital Status | | + + + | Jewish Affiliation | 1013 | + + + | Race | Unknown | + + + | Ethnic Group | Unknown | + + + Author + + + | Author | [facility] | | | and [place] | + + + | Organization | [facility] | | | [...] Team Providers + +------+ + | Care Designer Architect Name | Role | Phone | + [...] | | | | | Hypertensive | Conger | [address] | | | | | chronic | [address] | [place], | | | | | kidney | [place] | [place] [address] | | | | | disease with | [place] | Phone: | | | | | stage 1 | [address] | [phone] | | | | | through | Phone: | Fax: | | | | | stage 4 | [phone] | [phone] | | | | | chronic | Fax: | | | | | | kidney | [phone] | | | | | | disease, or | | | | | | | unspecified | | | | | | | chronic | | | | | | | kidney | | | | | | | disease | | | | | | | Procedures | | | | | | | NE OFFICE | | | | | | | OUTPATIENT | | | | | | | VISIT 25 | | | | | | | MINUTES | | | +--------+--------+ + + + + Encounter Details +--------+ + + + + | Date | Type | Department | Care Team | Description | +--------+ + + + + | 05/22/ | Off-Site | [facility] | Juan Paris | 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 | Visit | NEPHROLOGY [address] | M, DO [address] | glomerulonephritis | | | | [address] | [address] [place] | (Primary Dx); Mixed | | | | [place], [place] | [place] [address] | hyperlipidemia; | | | | [address] | [phone] | COPD, severe (HCC); | | | | [phone] | | Chronic kidney | | | | | | disease, stage I | +--------+ + + + + Social [...] + + + | Blood Pressure | 130/68 | 05/22/2016 5:35 PM | | | | | PDT | | + + + + + | Pulse | - | - | | + + + + + | Temperature | 36 C (96.8 F) | 05/22/2016 5:35 PM | | | | | PDT [...] + + + + | Weight | 91 kg (200 lb 9.9 | 05/22/2016 5:35 PM | | | | oz) | PDT | | + + + + + | Height | - | - | | + + + + + | Body Mass Index | 28.79 | 10/14/2015 11:14 AM | | | | | PST | | + + + + + documented in this encounter Progress Notes Juan Paris, - 05/22/2016 4:32 PM PDT Subjective: NEPHROLOGY Patient ID: Sierra Roman is a 65 y.o. male. HPI Comments: Followup for this 65 YO white male with Bx proven, relapse of membranous GN, who is stat us post 6 months prednisone/12 months mycophenolate, in 2004, hyperlipidemia, steroid-induc ed Type II DM, remote history of diverticulitis, and COPD. He underwent a 2nd renal core Bx on 01/27/16 at the [facility] Renal Section with Dr. 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 It was recommended that he underg o a 3 dose regimen of Rituximab and he received his first dose He had his 1st dose of Carmen ximab 1g, IVPB on 03/14/16, and a 2nd dose 30 days later. He had some malaise and neuropathi c pain , which improved on low dose gabapentin. He states that he is progressively feeling better. He denies hematuria, edema, joint pain, fever, or cough. Outpatient Prescriptions Marked as Taking for the 05/22/16 encounter (Appointment) with Li Paris DO Medication Sig Dispense Refill albuterol [...] mouth 2 times daily. 90 tablet 4 gabapentin (NEURONTIN) 300 mg capsule Take 1 capsule by mouth 2 times daily. 60 capsule 11 losartan (COZAAR) 100 MG [...] tablet by mouth Daily. 90 tablet 4 sulfamethoxazole-trimethoprim (BACTRIM DS) 800-160 mg per tablet Take 1 tablet by mouth 2 times daily. 14 tablet 0 umeclidinium-vilanterol (ANORO ELLIPTA) 62.5-25 mcg/puff inhaler Inhale 1 puff into the lungs Daily. Allergies Allergen Reactions Amoxicillin Rash Objective: There were no vitals taken for this visit. Physical Exam Heart: Regular rate and rhythm with no S3, S4, murmur or rub. Lungs: CTA bilaterally, no rales or wheezes. Abdomen: Soft, flat, nontender, normoactive bowel sounds. Extremities: no clubbing, cyanosis, edema. Lab Results Component Value Date NAEX 141 05/15/2016 KEX 4.3 05/15/2016 CLEX 104 05/15/2016 CO2EX 27 05/15/2016 BUNEX 19 05/15/2016 CREEX 1.03 05/15/2016 EGFREX 72* 05/15/2016 GLUEX 144* 05/15/2016 PHOSEX 2.9 05/15/2016 MYZ3QVD 6.1 12/22/2015 Lab Results Component Value Date CHOLEX 177 05/15/2016 HDLEX 55.8* 05/15/2016 LDLEX 96 05/15/2016 TRIGEX 124 05/15/2016 Lab Results Component Value Date WBCEX 9.0 05/15/2016 HGBEX 13.9 05/15/2016 HCTEX 41.3 05/15/2016 PLTEX 221 05/15/2016 Lab Results Component Value Date CRCLEARANCE 52.0* 05/15/2016 PROTEX 2037* 05/15/2016 Assessment: 1. 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 2. Hypertension--stable on losartan, and amlodipine. 3. Hyperlipidemia--on statin Rx. 4. Steroid-induced Type II DM-- in remission. 5. COPD--stable on inhaled BD's. Plan: 1. I reviewed with Sierra his lab, BP, and 24 Hour protein excretion. I discussed that the downward trend in proteinuria is a favorable sign, and that hopefully it will continue. 2. His BP control appears stable on the current dose of losartan. 3. He appears to be following a moderately limited, salt diet. 4. His next dose of Rituximab will be due around 09/26/16 at the Infusion Clinic, [facility]. 5. Will plan to see him back at the CKD Clinic at [facility], [place] on 10/09/16. He will hav e a CBC, CMP, P04, and 24-hour urine collection one week prior to that. : Rico Garcia M.D., Noel Pope MD, [facility], Nephrology Section, [facility], [place], [place] Cal Chester MD, Urology, [place] [facility] documented in this encounter Plan of Treatment +--------+ + + + + | Date | Type | Specialty | Care Team | Description | +--------+ + + + + | 05/24/ | Off-Site | Nephrology | Juan Paris | | | 2019 | Visit | | DO Nisreen [address] | | | | | | [place] | | | | | | [place] [address] | | | | | | [phone] | | | | | | | | +--------+ + + + + | 07/23/ | Office | Pulmonology | Jt Roman | | | 2020 | Visit | | Tony Edwards MD [address] | | | | | [address] | | | | | | [place] [address] | | | | | | [phone] | | | | | | | | +--------+ + + + + documented as of this encounter Visit Diagnoses + + | Diagnosis | + + | Membranous glomerulonephritis - Primary Nephritis and nephropathy, not specified as | | acute or chronic, with lesion of membranous glomerulonephritis | + + | Mixed hyperlipidemia | + + | COPD, severe (HCC) Chronic airway obstruction, not elsewhere classified | + + | Chronic kidney disease, stage I Chronic kidney disease, Stage I | + + documented in this encounter"
--- OUTSIDE RECORDS SUMMARY | ~2020-04-30 | XMS | Encounter Summary ---
Demographics + + + | Address | [address] | | | [place] [address] | + + + | Home Phone [...] Team Providers + +------+ + | Care Automotive Service Consultant Name | Role | Phone | + +------+ + | Meme Burgos MD | PCP | | + +------+ + Reason for Visit Evaluate & Treat (Routine) + +--------+ + + + + | Status | Reason | Specialty | Diagnoses / | Referred By | Referred To | | | | | Procedures | Contact | Contact | + +--------+ + + + + | Authorized | | Nephrology | Diagnoses | Jose, | Raina | | | | | Bishop | Heron | Juan Nielson DO | | | | | glomerulonep | Rico, MD | [address] | | | | | hritis | [address] | | | | | Hypertensive | [place] | [address] | | | | | chronic | [address] | [place], | | | | | kidney | [place], | [place] [address] | | | | | disease with | [place] | Phone: | | | | | stage 1 | [address] | [phone] | | | | | through | Phone: | Fax: | | | | | stage 4 | [phone] | [phone] | | | | | chronic | Fax: | | | | | | kidney | [phone] | | | | | | disease, or | | | | | | | unspecified | | | | | | | chronic | | | | | | | kidney | | | | | | | disease | | | | | | | Procedures | | | | | | | [place] OFFICE | | | | | | | OUTPATIENT | | | | | | | VISIT 25 | | | | | | | MINUTES | | | + +--------+ + + + + Encounter Details +--------+ + + + + | Date | Type | Department | Care Team | Description | +--------+ + + + + | 05/26/ | Off-Site | [facility] [place] | Juan Paris | Membranous | | 2019 | Visit | NEPHROLOGY [address] | M, DO [address] | glomerulonephritis | | | | [address] | [address] [place] | (Primary Dx); Mixed | | | | [place], [place] | [place] [address] | hyperlipidemia; | | | | [address] | [phone] | Essential | | | | [phone] | | hypertension, | | | | | | benign; Chronic | | | | | | kidney disease, | | | | | | stage II (mild) | +--------+ + + + + Social [...] + + + | Blood Pressure | 128/70 | 05/26/2019 5:18 PM | | | | | PDT | | + + + + + | Pulse | - | - | | + + + + + | Temperature | 36.6 C (97.8 F) | 05/26/2019 5:18 PM | | | | | PDT [...] + + + + | Weight | 86 kg (189 lb 8 oz) | 05/26/2019 5:18 PM | | | | | PDT | | + + + + + | Height | - | - | | + + + + + | Body Mass Index | 25.7 | 01/17/2019 10:39 AM | | | | | PDT | | + + + + + documented in this encounter Progress Notes Juan Paris, - 05/26/2019 2:00 PM PDT Subjective: NEPHROLOGY Patient ID: Sierra Roman is a 69 y.o. male. HPI Comments: Followup for this very pleasant, 69 YOWM with prior Bx proven, recurrent MGN, found on a 2nd renal core Bx on 01/27/16 at [facility]. He initially was treated in 2004 with 6 mo. of predn isone, then, 12 mo. of mycophenolate + 12 weeks prednisone. He was treated with 3 doses of Rituximab 1g, the last on 09/27/16 in consultation with the [facility], at the [facility]. (He had his initial dose of Rituximab 1g, IVPB on 03/14/16). He denies any interval edema, worsening BP, hematuria, weight loss or fever. He states that he is enjoying his intermediate. He also has HTN, COPD, hyperlipidemia. He denies hematuria, flank pain, NSAID use, or anor exia. Outpatient Medications Marked as Taking for the 05/26/19 encounter (Appointment) with Andrew Paris, DO Medication Sig Dispense Refill albuterol (PROVENTIL HFA) 90 mcg/puff inhaler Inhale 2 puffs into the lungs every 4 lesley rs as needed for Shortness of Breath. albuterol 2.5 mg/3 mL nebulizer solution Take 3 mLs by nebulization every 4 hours as ne eded for Shortness of Breath. 360 vial 11 albuterol-ipratropium 2.5-0.5 mg/3 mL SOLN Take 3 mLs by nebulization. [DISCONTINUED] amLODIPine (NORVASC) 10 MG tablet Take 10 mg by mouth Daily. Apple Cider Vinegar 500 MG TABS Take 1 tablet by mouth Daily. APPLE CIDER VINEGAR PO Take 450 mg by mouth. [DISCONTINUED] ASMANEX 60 METERED DOSES 220 MCG/INH inhaler INHALE 1 DOSE BY MOUTH TWIC E DAILY 1 Inhaler 5 aspirin 81 MG EC tablet Take 81 mg by mouth Daily. B Complex Vitamins (B COMPLEX PO) Take by mouth daily. [DISCONTINUED] beclomethasone HFA (QVAR REDIHALER) 80 mcg/puff inhaler Inhale 2 puffs i nto the lungs 2 (two) times daily. [DISCONTINUED] budesonide-formoterol (SYMBICORT) 80-4.5 mcg/puff inhaler Inhale 2 puffs into the lungs 2 (two) times daily. Calcium Carb-Cholecalciferol 600-800 MG-UNIT TABS Take 2 tablets by mouth. calcium, as carbonate, (CALTRATE) 600 mg tablet Take 600 mg by mouth daily (with breakf ast). calcium-vitamin D 600 mg-200 units per tablet Take 1 tablet by mouth daily. cephalexin (KEFLEX) 500 mg capsule Take 500 mg by mouth 4 (four) times daily. cholecalciferol (VITAMIN D-3) 400 units capsule Take by mouth daily. citalopram (CELEXA) 10 mg tablet Take 10 mg by mouth daily. [DISCONTINUED] doxycycline (ADOXA) 100 MG tablet Take 100 mg by mouth 2 (two) times tomasa ly. FOR 10 DAYS fish oil 1,000 mg capsule Take 500 mg by mouth daily. [] FLUTICASONE PROPIONATE, NASAL, NA INSTILL 1-2 SPRAYS IN EACH NOSTRIL EVERY DA Y FOR NASAL ALLERGIES furosemide (LASIX) 40 mg tablet Take 1 tablet by mouth Daily. (Patient not taking: Katherine rted on 07/18/2019) 90 tablet 4 Green Tea, Mara sinensis, (GREEN TEA EXTRACT PO) Take 300 mg by mouth. Green Tea, Camillia sinensis, 315 MG CAPS Take 1 capsule by mouth Daily. guaiFENesin (MUCINEX PO) Take by mouth. guaiFENesin (MUCINEX) 600 mg 12 hr tablet Take 600 mg by mouth 2 times daily. hydrOXYzine hydrochloride (ATARAX) 25 mg tablet Take 25 mg by mouth every 6 (six) hours as needed. FOR ANXIETY losartan (COZAAR) 100 MG tablet Take 25 mg by mouth Daily. LOSARTAN POTASSIUM PO Take 100 mg by mouth daily. metFORMIN (GLUCOPHAGE) 500 mg tablet Take 500 mg by mouth 4 (four) times daily. 2 pills AM 2 pills PM metoprolol succinate (TOPROL-XL) 100 mg ER tablet Take 50 mg in the morning and 100 mg at night METOPROLOL SUCCINATE ER PO Take 50 mg by mouth nightly. [] montelukast (SINGULAIR) 10 mg tablet Take 1 tablet by mouth nightly. Multiple Vitamins-Minerals (ALIVE MENS ENERGY PO) Take 1 tablet by mouth Daily. Multiple Vitamins-Minerals (B COMPLEX PLUS VITAMIN C PO) Take 1 tablet by mouth Daily. omeprazole (PRILOSEC) 20 mg capsule Take one capsule by mouth once daily on an empty st omach [DISCONTINUED] predniSONE (DELTASONE) 20 mg tablet Take 20 mg by mouth daily. promethazine-codeine (PHENERGAN WITH CODEINE) 6.25-10 mg/5 mL syrup Take 5 mLs by mouth . 1-3 tsp q 3-8 hrs prn Indications: Cough [DISCONTINUED] salmeterol (SEREVENT DISKUS) 50 mcg/puff diskus inhaler Inhale 1 puff in to the lungs 2 (two) times daily. simvastatin (ZOCOR) 20 mg tablet Take 1 tablet by mouth Daily. 90 tablet 4 tamsulosin (FLOMAX) 0.4 mg CAPS Take 0.4 mg by mouth every evening. Take 2 tabs nightly tiotropium (SPIRIVA) 18 mcg inhalation capsule Inhale 18 mcg into the lungs daily. [DISCONTINUED] umeclidinium-vilanterol (ANORO ELLIPTA) 62.5-25 mcg/puff inhaler Inhale 1 puff into the lungs Daily. [] UNABLE TO FIND INHALE 2 PUFFS BY MOUTH EVERY SIX HOURS NEEDED FOR WHEEZING /SHORTNESS OF BREATH Allergies Allergen Reactions Amoxicillin Rash, Hives and Shortness Of Breath Lisinopril Cough Objective: BP 128/70 | Temp 36.6 C (97.8 F) | Wt 86 kg (189 lb 8 oz) | BMI 25.70 k g/m Physical Exam Heart: Regular rate and rhythm with no S3, S4, murmur or rub. Lungs: CTA with decreased breath sounds bilaterally, no rales, no wheezes. Abdomen: Soft, flat, nontender, normoactive bowel sounds. Extremities: no edema, clubbing, or cyanosis. Lab Results Component Value Date NAEX 141 05/22/2019 KEX 4.4 05/22/2019 CLEX 105 05/22/2019 CO2EX 25 05/22/2019 BUNEX 14 05/22/2019 CREEX 1.04 05/22/2019 EGFREX 71 05/22/2019 GLUEX 117 05/22/2019 PHOSEX 3.1 05/22/2019 PTHEX 41.51 05/22/2019 CNM5BQC 6.1 12/22/2015 Lab Results Component Value Date WBCEX 8.5 05/22/2019 HGBEX 14.4 05/22/2019 HCTEX 43.3 05/22/2019 PLTEX 213 05/22/2019 Urine Pro/Cr ratio = Lab Results Component Value Date PROTEX 0.123 05/22/2019 Assessment: 1. 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 2. Hypertension-- excellent control. 3. Hyperlipidemia--on statin Rx. 4. Steroid-induced Type II DM-- in remission. 5. COPD--compensated today. Plan: 1. I reviewed with him his lab, BP and GFR. His proteinuria appears to be still in remissi on and GFR appears stable post Rituximab Rx. 2. Will continue his ARB, losartan. 3. Will plan to see him back in 6 months. He will have a CBC, CMP, PO4, iPTH, Vitamin D level, lipid profile, and spot Urine Pro/Cr ratio one week prior to that. Electronically signed by: Juan Paris DO on at 5:16 PM CC: Meme Pope MD, [facility], Nephrology Section, [facility], [place], [place] docume nted in this encounter Plan of Treatment +--------+ [...] [place] | | | | | | [place] [address] | | | | | | [phone] | | | | | | | | +--------+ + + + + | 07/23/ | Office | Pulmonology | Jt Roman | | | 2019 | Visit | | Tony Edwards MD [address] | | | [address] | | | | | | [place] [address] | | | | | | [phone] | | | | | | | | +--------+ + + + + documented as of this encounter Visit Diagnoses + + | Diagnosis | + + | Membranous glomerulonephritis - Primary Nephritis and nephropathy, not specified as | | acute or chronic, with lesion of membranous glomerulonephritis | + + | Mixed hyperlipidemia | + + | Essential hypertension, benign | + + | Chronic kidney disease, stage II (mild) Chronic kidney disease, Stage II (mild) | + + documented in this encounter"
--- OUTSIDE RECORDS SUMMARY | ~2020-04-30 | XMS | Encounter Summary ---
Demographics + + + | Address | [address] | | | [place] [address] | + + + | Home Phone | | + + + | Preferred Language | Unknown | + + + | Marital Status | | + + + | Taoism Affiliation | [id number] | + + + [...] Team Providers + +------+ + | Care Tile Installer Name | Role | Phone | + +------+ + | Meme Burgos MD | PCP | | + +------+ + Reason for Visit + +--------+ + | Reason | Onset | Comments | | | Date | | + +--------+ + | Medication Refill | 07/21/ | | | | 2019 | | + +--------+ + Encounter Details +--------+--------+ + + + | Date | Type | Department | Care Team | Description | +--------+--------+ + + + | 07/21/ | Refill | [facility] | Roma Dumas RN | Medication Refill | | 2018 | | PULMONOLOGY [address] | | | | | | [place], [place] | | | | | | [address] | | | | | | [phone] | | | +--------+--------+ + + + [...] | | | | | | [place] [address] | | | | | | [phone] | | | | | | | | +--------+ + + + + | 07/23/ | Office | Pulmonology | Jt Roman | | | 2019 | Visit | | Tony Edwards MD [address] | | | [address] | | | | | | [place] [address] | | | | | | [phone] | | | | | | | | +--------+ + + + + documented as of this encounter Visit Diagnoses + + | Diagnosis | + + | Centrilobular emphysema (HCC) - Primary | + + documented in this encounter"
--- OUTSIDE RECORDS SUMMARY | ~2020-04-30 | XMS | Encounter Summary ---
Demographics + + + | Address | [address] | | | [place] [address] | + + + | Home Phone [...] Team Providers + +------+ + | Care Electric Welder Name | Role | Phone | + +------+ + PCP | Unavailable | + +------+ + Reason for Visit + + + | Reason | Comments | + + + | Nephritis | membranous | + + + Encounter Details +--------+---------+ + + + | Date | Type | Department | Care Team | Description | +--------+---------+ + + + | 03/19/ | Office | [facility] | ZuleykaashleeJuan | Membranous | | 2012 | Visit | NEPHROLOGY [address] | M, DO [address] | glomerulonephritis | | | | [address] | [address] [place] | (Primary Dx); | | | | [place], [place] | [place] [address] | Diabetes mellitus, | | | | [address] | [phone] | type II (HCC); | | | | [phone] | | Unspecified | | | | | | hypertensive kidney | | | | | | disease with chronic | | | | | | kidney disease | | | | | | stage I through | | | | | | stage IV, or | | | | | | unspecified; | | | | | | Hyperlipidemia | +--------+---------+ + + + Social History [...] + + + | Blood Pressure | 116/70 | 03/19/2013 8:56 AM | | | | | PDT | | + + + + + | Pulse | 64 | 03/19/2013 8:56 AM | | | | | PDT [...] + + + + | Weight | 84.9 kg (187 lb 1.6 | 03/19/2013 8:56 AM | | | | oz) | PDT | | + + + + + | Height | 179.7 cm (5' 10.75") | 03/19/2013 8:56 AM | | | | | PDT | | + + + + + | Body Mass Index | 26.28 | 03/19/2013 8:56 AM | | | | | PDT | | + + + + + documented in this encounter Patient Instructions Patient Instructions Rhiannon Avila RN - 03/19/2013 9:00 AM PDT March 19, 2013 Sierra Roman [address] [place] [address] Dear Sierra: Thank you for enrolling in [employer]. Please follow the instructions below to view your kSARIA e online medical record. [employer] allows you to send secure messages to your doctor, view you r test results, renew your prescriptions, schedule appointments, and more. How Do I Sign Up? 1. In your Internet browser, go to [email or web address] 2. Click on the "Sign up with your activation code" button in the "New User?" box. This mauro l take you to the New Member Sign Up page. 3. Enter your [employer] activation code exactly as it appears below. You will not need to use this code after you sign up. If you do not sign up before the expiration date, you must req uest a new code through your [facility] or [facility] participating clinic. [facility] Access Code: [email or web address] Expires: 05/18/2013 9:00 4. Fill in the last four digits of your Social Security Number (xxxx) and Date of (mm /dd/yyyy) and click Next. 5. Create a [facility] username. Your username cannot be changed, so think of one t hat is secure and easy to remember. 6. Create a [employer] password. You can change your password at any time. 7. Enter your security question and answer. This can be used at a later time if you forget your password. Click Next. 8. Enter your e-mail address. You will receive e-mail notification when new information is available in [employer]. 9. Click "Sign In". You may now view your medical record. Additional Information If you have questions, you can email or call [phone] to talk to our MyChart care team. Please remember, MyChart should NOT be used for urg ent needs. For all medical emergencies, call 911. Sincerely, Juan Paris DO documented in this encounter Progress Notes Juan Paris DO - 03/19/2013 10:15 AM PDT Subjective: Patient ID: Sierra Roman is a 62 y.o. male. HPI Comments: Followup for this 62-year-old white male with biopsy-proven membranous GN, who is status po st 6 months prednisone/12 months mycophenolate, in 2004, hyperlipidemia, steroid-induced Ty pe II DM, remote history of diverticulitis, prediabetes, and COPD. He states that his BP i ncreasing last year and he had addition of lisinopril, metoprolol succinate to his regimen. He denies edema, hematuria, or productive cough. He does still smoke <1/2 pack per day. 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 He does see Dr. Rico Garcia on a regular ba sis as well. Outpatient Prescriptions Marked as Taking for the 03/19/13 encounter (Office Visit) with John Paris DO Medication Sig Dispense Refill albuterol 2.5 mg/3 mL nebulizer solution Use in nebulizer every 4 hours as needed for s hortness of breath aspirin 81 MG EC tablet Take 81 mg by mouth Daily. Calcium Carb-Cholecalciferol 600-800 MG-UNIT TABS Take 2 tablets by mouth Daily. formoterol (FORADIL AEROLIZER) 12 mcg capsule for inhaler 1 capsule inhaled twice daily lisinopril (PRINIVIL,ZESTRIL) 40 MG tablet Take 40 mg by mouth Daily. metoprolol succinate (TOPROL-XL) 50 mg 24 hr tablet Take 50 mg by mouth Daily. mometasone (ASMANEX 120 METERED DOSES) 220 mcg/puff inhaler 1 dose inhaled twice daily Huxley-3 Fatty Acids (FISH OIL) 1200 MG CAPS [...] 30 tablet 4 Allergies Allergen Reactions Amoxicillin Review of Systems Objective: Blood pressure 116/70, pulse 64, height 1.797 m (5' 10.75"), weight 84.868 kg (1 87 lb 1.6 oz). Physical Exam Heart: Regular rate and rhythm with no S3, S4, murmur or rub. Lungs: Decreased breath sounds bilaterally, no rales or wheezes. Abdomen: Soft, flat, nontender, normoactive bowel sounds. Extremities: No clubbing, cyanosis, or edema. No asterixis. No foot ulcers. LAB: BUN 19, CR 0.09, K+ 4 HCO3 28, glucose 113, HbA1c 8.0%, TC 159, HDL 66, LDL 82, H./H. = 15.3/45.3. 24-hour urine: Ccr = 87 mL/minute, 662 mg protein/day. Assessment: 1. 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 Proteinuria is impro omer. 2. Hypertension--good control. 3. Hyperlipidemia--good control on statin therapy. 4. 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 5. COPD--stable. 6. Remote history of diverticulitis, quiescent . Plan: 1. I discussed with Sierra that his stable GFR, and improved proteinuria are good prognostic signs. 2. I strongly concur with the use of lisinopril for his blood pressure, and renoprotective effect. 3. I think his long-term renal prognosis is very good, given his stable Scr. I did discus s with Sierra that absolutely quitting all tobacco would be strongly in his best interest. 4. Will plan to see him again in one year at the CKD clinic, at [facility]. CC: Rico Garcia M.D., [place] documented in thi s encounter Plan of [...] PB | | | | | | [place] [address] | | | | | | [phone] | | | | | | | | +--------+ + + + + | 07/23/ | Office | Pulmonology | Jt Roman | | | 2019 | Visit | | Tony Edwards MD [address] | | | | | [address] | | | | | | [place] [address] | | | | | | [phone] | | | | | | | | +--------+ + + + + documented as of this encounter Procedures + +--------+ + + + | Procedure Name | Priori | Date/Time | Associated Diagnosis | Comments | | | ty | | | | + +--------+ + + + | POCT URINALYSIS, | Routin | 03/19/2013 | Membranous | Results for this | | AUTO WITH CONF | e | 8:39 AM | glomerulonephritis | procedure are in the | | | | PDT | Diabetes mellitus, | results section. | | | | | type II (HCC) | | | | | | Unspecified | | | | | | hypertensive kidney | | | | | | disease with chronic | | | | | | kidney disease | | | | | | stage I through | | | | | | stage IV, or | | | | | | unspecified | | | | | | Hyperlipidemia | | + +--------+ + + + documented in this encounter Results POCT Urinalysis Dipstick Automated (03/19/2013 8:39 AM PDT) + + + + + + | Component | Value | Ref Range | Performed | Pathologist | | | | | At | Signature | + + + + + + | Color, UA, | Yellow | | | | | POC | | | | | + + + + + + | Clarity, | Clear | | | | | UA, POC | | | | | + + + + + + | Glucose, | Negative | | | | | UA, POC | | | | | + + + + + + | Bilirubin, | Negative | | | | | UA, POC | | | | | + + + + + + | Ketones, | Negative | Negative | | | | UA, POC | | | | | + + + + + + | Specific | 1.010 | | | | | [place], | | | | | | UA, POC | | | | | + + + + + + | Blood, UA, | Trace Intact | | | | | POC | | | | | + + + + + + | pH, UA, POC | 6.0 | | | | + + + + + + | Protein, | 100 mg/dL | | | | | UA, POC | | | | | + + + + + + | Urobilinoge | 0.2 E.U./dL | | | | | n, UA, POC | | | | | + + + + + + | Nitrite, | Negative | | | | | UA, POC | | | | | + + + + + + | Leukocyte | Negative | | | | | Esterase, | | | | | | UA, POC | | | | | + + + + + + | Reducing | | Negative | | | | Substances, | | [...] of membranous glomerulonephritis | + + | Diabetes mellitus, type II (HCC) Type II or unspecified type diabetes mellitus | | without mention of complication, not stated as uncontrolled | + + | Unspecified hypertensive kidney disease with chronic kidney disease stage I through | | stage IV, or unspecified(403.90) Unspecified hypertensive kidney disease with chronic | | kidney disease stage I through stage IV, or unspecified | + + | Hyperlipidemia Other and unspecified hyperlipidemia | + + documented in this encounter
--- OUTSIDE RECORDS SUMMARY | ~2020-04-30 | XMS | Encounter Summary ---
Demographics + + + | Address | [address] | | | [place] [address] | + + + | Home Phone | | + + + | Preferred Language | Unknown | + + + | Marital Status | | + + + | Adventist Affiliation | 1013 | + + + | Race | Unknown | + + + | Ethnic Group | Unknown | + + + Author + + + | Author | [facility] | | | and [place] | + + + | Organization | [facility] | | | [...] Team Providers + +------+ + | Care Nursing Informatics Clinical Analyst Name | Role | Phone | [...] | | | | | Hypertensive | [place] | [address] | | | | | chronic | [address] | [place], | | | | | kidney | [place], | [place] [address] | | | | | disease with | [place] | Phone: | | | | | stage 1 | [address] | [phone] | | | | | through | Phone: | Fax: | | | | | stage 4 | [phone] | [phone] | | | | | chronic | Fax: | | | | | | kidney | [phone] | | | | | | disease, or | | | | | | | unspecified | | | | | | | chronic | | | | | | | kidney | | | | | | | disease | | | | | | | Procedures | | | | | | | MS OFFICE | | | | | | | OUTPATIENT | | | | | | | VISIT 25 | | | | | | | MINUTES | | | +--------+--------+ + + + + Encounter Details +--------+ + + + + | Date | Type | Department | Care Team | Description | +--------+ + + + + | 05/27/ | Off-Site | [facility] [place] | Juan Paris | Membranous | | 2018 | Visit | NEPHROLOGY [address] | M, DO [address] | glomerulonephritis | | | | [address] | [address] [place] | (Primary Dx); | | | | [place], [place] | [place] [address] | Chronic kidney | | | | [address] | [phone] | disease, stage II | | | | [phone] | | (mild); Mixed | | | | | | hyperlipidemia; | | | | | | Essential | | | | | | hypertension, benign | +--------+ + + + + Social [...] + + + | Blood Pressure | 120/80 | 05/27/2018 9:58 AM | | | | | PDT | | + + + + + | Pulse | - | - | | + + + + + | Temperature | 36.4 C (97.6 F) | 05/27/2018 9:58 AM | | | | | PDT [...] + + + + | Weight | 89.9 kg (198 lb 3.1 | 05/27/2018 9:58 AM | | | | oz) | PDT | | + + + + + | Height | - | - | | + + + + + | Body Mass Index | 26.88 | 05/10/2018 10:06 AM | | | | | PDT | | + + + + + documented in this encounter Progress Notes Juan Paris, - 05/27/2018 2:00 PM PDT Subjective: NEPHROLOGY Patient ID: Sierra Roman is a 68 y.o. male. HPI Comments: Followup for this compliant, 68 YOWM with prior Bx proven, recurrent MGN, found on a 2nd renal core Bx on 01/27/16 at [facility]. He initially was treated in 2004 with 6 mo. of prednisone , then, 12 mo. of mycophenolate + 12 weeks prednisone. He was treated with 3 doses of Rituximab 1g, the last on 09/27/16 in consultation with the [facility], at the [facility]. (He had his initial dose of Rituximab 1g, IVPB on 03/14/16). He states that he feels well , and denies edema, worsening BP, foamy urine, or hematuria. He states that his main difficulty is SOB, only when his COPD flares. He is not smoking. He also has HTN, COPD, hyperlipidemia. He denies hematuria, flank pain, NSAID use, or anor exia. Outpatient Prescriptions Marked as Taking for the 05/27/18 encounter (Off-Site Visit) with Nisreen Paris DO [...] Take 1 tablet by mouth Daily. (Patient taking different ly: Take 40 mg by mouth Daily as needed.) 90 tablet 4 Green Tea, Camillia sinensis, [...] Allergies Allergen Reactions Amoxicillin Rash Objective: BP 120/80 | Temp 36.4 C (97.6 F) | Wt 89.9 kg (198 lb 3.1 oz) | BMI 26. 88 kg/m Physical Exam Heart: Regular rate and rhythm with no S3, S4, murmur or rub. Lungs: CTA with decreased breath sounds bilaterally, no rales, no wheezes. Abdomen: Soft, flat, nontender, normoactive bowel sounds. Extremities: no edema, clubbing, or cyanosis. Lab Results Component Value Date NAEX 143 05/21/2018 KEX 4.4 05/21/2018 CLEX 105 05/21/2018 CO2EX 24 05/21/2018 BUNEX 19 05/21/2018 CREEX 0.97 05/21/2018 EGFREX 77 05/21/2018 GLUEX 130 (A) 05/21/2018 PHOSEX 2.7 05/21/2018 PTHEX 43.67 05/21/2018 RKY6GWE 6.1 12/22/2015 Lab Results Component Value Date WBCEX 11.4 (A) 05/21/2018 HGBEX 14.5 05/21/2018 HCTEX 43.2 05/21/2018 PLTEX 194 05/21/2018 Lab Results Component Value Date CRCLEARANCE 75.0 (A) 05/21/2018 PROTEX 171 (A) 05/21/2018 Assessment: 1. CKD Stage 2 , secondary to 3rd relapse of biopsy-proven membranous GN, 01/27/2016-- SCr and proteinuria are stable post Rituximab Rx. 2. Hypertension-- good control. 3. Hyperlipidemia--on statin Rx. 4. Steroid-induced Type II DM-- in remission. 5. COPD--compensated today. Plan: 1. I reviewed with Sierra his BP, GFR and spot urine protein. I discussed that his MGN and proteinuria appears to be remitting over time. 2. Will continues his losartan for its renoprotective effect. 3. Will plan to see him back in 1 year. He will have a CBC, CMP, PO4, HbA1c, iPTH, Vitami n D level, lipid profile, and spot Urine Pro/Cr ratio one week prior to that. : Sandi Pope MD, [facility], Nephrology Section, [facility], [place], [place] Meme Burgos MD 1 0:06 AM PSTdocumented in this encounter Plan of Treatment +--------+ + + + + | Date | Type | Specialty | Care Team | Description | +--------+ + + + + | 05/24/ | Off-Site | Nephrology | Juan Paris | | | 2019 | Visit | | DO Nisreen [address] | | | | | | [facility] | | | | | | [place] [address] | | | | | | [phone] | | | | | | | | +--------+ + + + + | 07/23/ | Office | Pulmonology | Jt Roman | | | 2019 | Visit | | Tony Edwards MD [address] | [address] | | | | | | [place] [address] | | | | | | [phone] | | | | | | | | +--------+ + + + + documented as of this encounter Procedures + +--------+ + + + | Procedure Name | Priori | Date/Time | Associated Diagnosis | Comments | | | ty | | | | + +--------+ + + + | LABS - EXTERNAL SCAN | | 05/22/2019 | | Results for this | | | | 12:00 AM | | procedure are in the | | | | PDT | | results section. | + +--------+ + + + documented in this encounter Results LABS - EXTERNAL SCAN (05/22/2019 12:00 AM PDT) + + + | [...] of membranous glomerulonephritis | + + | Chronic kidney disease, stage II (mild) Chronic kidney disease, Stage II (mild) | + + | Mixed hyperlipidemia | + + | Essential hypertension, benign | + + documented in this encounter"
--- OUTSIDE RECORDS SUMMARY | ~2020-04-30 | XMS | Encounter Summary ---
Demographics + + + | Address | [address] | | | [place] [address] | + + + | Home Phone | | + + + | Preferred Language | Unknown | + + + | Marital Status | | + + + | Adventism Affiliation | 1013 | + + + [...] Providers + +------+ + | Care Supervisor [employer] Name | Role | Phone | + +------+ + PCP | Unavailable | + +------+ + Reason for Visit +--------+--------+ + | Reason | Onset | Comments | | | Date | | +--------+--------+ + | Other | 11/08/ | | | | 2012 | | +--------+--------+ + Encounter Details +--------+ + + + + | Date | Type | Department | Care Team | Description | +--------+ + + + + | 11/08/ | Telephone | [facility] [place] | Dorota Ugalde, | Other | | 2012 | | PULMONARY [address] | RN | | | | | [place], | | | | | | [place] [address] | | | | | | [phone] | | | +--------+ + + + [...] this encounter Miscellaneous Notes Telephone Encounter - Dorota Ugalde RN - 11/08/2012 9:58 AM PSTCall[facility] he received a follow up note from Dr Garcia mentioning that Sierra was i nterested in having a sleep study. Sierra was not at home but his Kortney confirmed that it i s okay to send an order to the sleep center. documented in this encounter Plan of [...] | | | | | | [place] [address] | | | | | | [phone] | | | | | | | | +--------+ + + + + | 07/23/ | Office | Pulmonology | Jt Roman | | | 2019 | Visit | | Tony Edwards MD [address] | | | | [address] | | | | | | [place] [address] | | | | | | [phone] | | | | | | | | +--------+ + + + + documented as of this encounter Visit Diagnoses Not on filedocumented in this encounter"
--- OUTSIDE RECORDS SUMMARY | ~2020-04-30 | XMS | Encounter Summary ---
Demographics + + + | Address | [address] | | | [place] [address] | + + + | Home Phone [...] Team Providers + +------+ + | Care Alodize Machine Operator Name | Role | Phone | + +------+ + PCP | Unavailable | + +------+ + Encounter Details +--------+ + + + + | Date | Type | Department | Care Team | Description | +--------+ + + + + | 05/16/ | Abstract | [facility] | [facility] | | | 2015 | | NEPHROLOGY [address] | M, DO [address] | | | | | [address] | [address] | | | | | [place] | [place] [address] | | | | | [address] | [phone] | | | | | [phone] | | | +--------+ + + + [...] PB | | | | | | [place] [address] | | | | | | [phone] | | | | | | | | +--------+ + + + + | 07/23/ | Office | Pulmonology | [facility] | | | 2019 | Visit | | Tony Edwards MD [address] | | | | | [address] | | | | | | [place] [address] | | | | | | [phone] | | | | | | | | +--------+ + + + + documented as of this encounter Procedures + +--------+ + + + | Procedure Name | Priori | Date/Time | Associated Diagnosis | Comments | | | ty | | | | + +--------+ + + + | EXTERNAL LAB: BRENDA | Routin | 05/15/2016 | | Results for this | | | e | | | procedure are in the | | | | | | results section. | + +--------+ + + + | EXTERNAL LAB: | Routin | 05/15/2016 | | Results for this | | GLUCOSE | e | | | procedure are in the | | | | | | results section. | + +--------+ + + + | EXTERNAL LAB: TIM | Routin | 05/15/2016 | | Results for this | | | e | | | procedure are in the | | | | | | results section. | + +--------+ + + + | EXTERNAL LAB: KRIS | Routin | 05/15/2016 | | Results for this | | | e | | | procedure are in the | | | | | | results section. | + +--------+ + + + | EXTERNAL LAB: | Routin | 05/15/2016 | | Results for this | | ALKALINE PHOSPHATASE | e | | | procedure are in the | | | | | | results section. | + +--------+ + + + | EXTERNAL LAB: | Routin | 05/15/2016 | | Results for this | | BILIRUBIN, TOTAL | e | | | procedure are in the | | | | | | results section. | + +--------+ + + + | EXTERNAL LAB: | Routin | 05/15/2016 | | Results for this | | ALBUMIN | e | | | procedure are in the | | | | | | results section. | + +--------+ + + + | EXTERNAL LAB: | Routin | 05/15/2016 | | Results for this | | PROTEIN, TOTAL | e | | | procedure are in the | | | | | | results section. | + +--------+ + + + | EXTERNAL LAB: | Routin | 05/15/2016 | | Results for this | | PHOSPHORUS | e | | | procedure are in the | | | | | | results section. | + +--------+ + + + | EXTERNAL LAB: | Routin | 05/15/2016 | | Results for this | | CALCIUM | e | | | procedure are in the | | | | | | results section. | + +--------+ + + + | EXTERNAL LAB: CARBON | Routin | 05/15/2016 | | Results for this | | DIOXIDE | e | | | procedure are in the | | | | | | results section. | + +--------+ + + + | EXTERNAL LAB: | Routin | 05/15/2016 | | Results for this | | CHLORIDE | e | | | procedure are in the | | | | | | results section. | + +--------+ + + + | EXTERNAL LAB: | Routin | 05/15/2016 | | Results for this | | POTASSIUM | e | | | procedure are in the | | | | | | results section. | + +--------+ + + + | EXTERNAL LAB: SODIUM | Routin | 05/15/2016 | | Results for this | | | e | | | procedure are in the | | | | | | results section. | + +--------+ + + + | EXTERNAL LAB: | Routin | 05/15/2016 | | Results for this | | PROTEIN, URINE, 24HR | e | | | procedure are in the | | | | | | results section. | + +--------+ + + + | EXTERNAL LAB: CBC | Routin | 05/15/2016 | | Results for this | | | e | | | procedure are in the | | | | | | results section. | + +--------+ + + + | EXTERNAL LAB: | Routin | 05/15/2016 | | Results for this | | TRIGLYCERIDES | e | | | procedure are in the | | | | | | results section. | + +--------+ + + + | EXTERNAL LAB: | Routin | 05/15/2016 | | Results for this | | CHOLESTEROL, HDL | e | | | procedure are in the | | | | | | results section. | + +--------+ + + + | EXTERNAL LAB: | Routin | 05/15/2016 | | Results for this | | CHOLESTEROL, TOTAL | e | | | procedure are in the | | | | | | results section. | + +--------+ + + + | EXTERNAL LAB: | Routin | 05/15/2016 | | Results for this | | CHOLESTEROL, LDL | e | | | procedure are in the | | | | | | results section. | + +--------+ + + + | EXTERNAL LAB: EGFR | Routin | 05/15/2016 | | Results for this | | | e | | | procedure are in the | | | | | | results section. | + +--------+ + + + | EXTERNAL LAB: | Routin | 05/15/2016 | | Results for this | | CREATININE | e | | | procedure are in the | | | | | | results section. | + +--------+ + + + | CREATININE | Routin | 05/15/2016 | | Results for this | | CLEARANCE, 12HR, | e | | | procedure are in the | | RESULTE | | | | results section. | + +--------+ + + + documented in this encounter Results Creatinine Clearance, 12hr, Result (05/15/2016) + + + + + + | Component | Value | Ref Range | Performed | Pathologist | | | | | At | Signature | + + + + + + | CREATININE | 52.0 (A) | 97.0 - 137.0 | | | | CLEARANCE | | mL/min | | | + + + + + + | 24H Urine | 2,100 | mL | | | | Volume | | | | | + + + + + + + + | Specimen | + + | | + + External Lab: Protein, Urine, 24Hr (05/15/2016) + + + + + + | Component | Value | Ref Range | Performed | Pathologist | | | | | At | Signature | + + + + + + | Protein, | 2,037 (A) | 150 | EXTERNAL | | | Urine 24Hr, | | | LAB | | | External | | | | | + + + + + + + + | Specimen | + + | Urine specimen | | (specimen) | + + + + | Resulting Agency Comment | + + | [facility] | + + + +---------+ + + | Performing | Address | City/State/Zipcode | Phone Number | | Organization | | | | + +---------+ + + | EXTERNAL LAB | | | | + +---------+ + + External Lab: BUN (05/15/2016) + +-------+ + + + | Component [...] Resulting Agency Comment | + + | [facility] | + + + +---------+ + + | Performing | Address | City/State/Zipcode | Phone Number | | Organization | | | | + +---------+ + + | EXTERNAL LAB | | | | + +---------+ + + External Lab: Glucose (05/15/2016) + +---------+ + + + | Component | Value | Ref Range | Performed | Pathologist | | | | | At | Signature | + +---------+ + + + | Glucose, | 144 (A) | 70 - 100 | EXTERNAL | | | External | | | LAB | | + +---------+ + + + + + | Resulting Agency Comment | + + | [facility] | + + + +---------+ + + | Performing | Address | City/State/Zipcode | Phone Number | | Organization | | | | + +---------+ + + | EXTERNAL LAB | | | | + +---------+ + + External Lab: ALT (05/15/2016) + +-------+ + + + | Component [...] Resulting Agency Comment | + + | [facility] | + + + +---------+ + + | Performing | Address | City/State/Zipcode | Phone Number | | Organization | | | | + +---------+ + + | EXTERNAL LAB | | | | + +---------+ + + External Lab: AST (05/15/2016) + +-------+ + + + | Component | Value | Ref Range | Performed | Pathologist | | | | | At | Signature | + +-------+ + + + | AST, | 14 | 13 - 39 | EXTERNAL | | | External | | | LAB | | + +-------+ + + + + + | Resulting Agency Comment | + + | [facility] | + + + +---------+ + + | Performing | Address | City/State/Zipcode | Phone Number | | Organization | | | | + +---------+ + + | EXTERNAL LAB | | | | + +---------+ + + External Lab: Alkaline Phosphatase (05/15/2016) + +-------+ + + + | Component | Value | Ref Range | Performed | Pathologist | | | | | At | Signature | + +-------+ + + + | ALP, | 82 | 30 - 128 | EXTERNAL | | | External | | | LAB | | + +-------+ + + + + + | Resulting Agency Comment | + + | [facility] | + + + +---------+ + + | Performing | Address | City/State/Zipcode | Phone Number | | Organization | | | | + +---------+ + + | EXTERNAL LAB | | | | + +---------+ + + External Lab: Bilirubin, Total (05/15/2016) + +-------+ + + + | Component | Value | Ref Range | Performed | Pathologist | | | | | At | Signature | + +-------+ + + + | Bilirubin, | 0.8 | 0 - 1.2 | EXTERNAL | | | Total, | | | LAB | | | External | | | | | + +-------+ + + + + + | Resulting Agency Comment | + + | [facility] | + + + +---------+ + + | Performing | Address | City/State/Zipcode | Phone Number | | Organization | | | | + +---------+ + + | EXTERNAL LAB | | | | + +---------+ + + External Lab: Albumin (05/15/2016) + +-------+ + + + | Component [...] Resulting Agency Comment | + + | [facility] | + + + +---------+ + + | Performing | Address | City/State/Zipcode | Phone Number | | Organization | | | | + +---------+ + + | EXTERNAL LAB | | | | + +---------+ + + External Lab: Protein, Total (05/15/2016) + +---------+ + + + | Component | Value | Ref Range | Performed | Pathologist | | | | | At | Signature | + +---------+ + + + | Protein, | 5.8 (A) | 6 - 8 | EXTERNAL | | | Total, | | | LAB | | | External | | | | | + +---------+ + + + + + | Resulting Agency Comment | + + | [facility] | + + + +---------+ + + | Performing | Address | City/State/Zipcode | Phone Number | | Organization | | | | + +---------+ + + | EXTERNAL LAB | | | | + +---------+ + + External Lab: Phosphorus (05/15/2016) + +-------+ + + + | Component | Value | Ref Range | Performed | Pathologist | | | | | At | Signature | + +-------+ + + + | Phosphorus, | 2.9 | 2.5 - 5 | EXTERNAL | | | External | | | LAB | | + +-------+ + + + + + | Resulting Agency Comment | + + | [facility] | + + + +---------+ + + | Performing | Address | City/State/Zipcode | Phone Number | | Organization | | | | + +---------+ + + | EXTERNAL LAB | | | | + +---------+ + + External Lab: Calcium (05/15/2016) + +-------+ + + + | Component | Value | Ref Range | Performed | Pathologist | | | | | At | Signature | + +-------+ + + + | Calcium, | 9.3 | 8.4 - 10.2 | EXTERNAL | | | External | | | LAB | | + +-------+ + + + + + | Resulting Agency Comment | + + | [facility] | + + + +---------+ + + | Performing | Address | City/State/Zipcode | Phone Number | | Organization | | | | + +---------+ + + | EXTERNAL LAB | | | | + +---------+ + + External Lab: Carbon Dioxide (05/15/2016) + +-------+ + + + | Component [...] Resulting Agency Comment | + + | [facility] | + + + +---------+ + + | Performing | Address | City/State/Zipcode | Phone Number | | Organization | | | | + +---------+ + + | EXTERNAL LAB | | | | + +---------+ + + External Lab: Chloride (05/15/2016) + +-------+ + + + | Component | Value | Ref Range | Performed | Pathologist | | | | | At | Signature | + +-------+ + + + | Chloride, | 104 | 95 - 112 | EXTERNAL | | | External | | | LAB | | + +-------+ + + + + + | Resulting Agency Comment | + + | [facility] | + + + +---------+ + + | Performing | Address | City/State/Zipcode | Phone Number | | Organization | | | | + +---------+ + + | EXTERNAL LAB | | | | + +---------+ + + External Lab: Potassium (05/15/2016) + +-------+ + + + | Component | Value | Ref Range | Performed | Pathologist | | | | | At | Signature | + +-------+ + + + | Potassium, | 4.3 | 3.6 - 5.1 | EXTERNAL | | | External | | | LAB | | + +-------+ + + + + + | Resulting Agency Comment | + + | [facility] | + + + +---------+ + + | Performing | Address | City/State/Zipcode | Phone Number | | Organization | | | | + +---------+ + + | EXTERNAL LAB | | | | + +---------+ + + External Lab: Sodium (05/15/2016) + +-------+ + + + | Component | Value | Ref Range | Performed | Pathologist | | | | | At | Signature | + +-------+ + + + | Sodium, | 141 | 132 - 143 | EXTERNAL | | | External | | | LAB | | + +-------+ + + + + + | Resulting Agency Comment | + + | [facility] | + + + +---------+ + + | Performing | Address | City/State/Zipcode | Phone Number | | Organization | | | | + +---------+ + + | EXTERNAL LAB | | | | + +---------+ + + External Lab: CBC (05/15/2016) + + + + + + | Component | Value | Ref Range | Performed | Pathologist | | | | | At | Signature | + + + + + + | WBC, | 9.0 | 4.5 - 11 | EXTERNAL | | | External | | | LAB | | + + + + + + | HGB, | 13.9 | 13.5 - 18 | EXTERNAL | | | External | | | LAB | | + + + + + + | HCT, | 41.3 | 41 - 50 | EXTERNAL | | | External | | | LAB | | + + + + + + | PLT, | 221 | 140 - 440 | EXTERNAL | | | External | | | LAB | | + + + + + + | Neutrophils | 72.2 | 39 - 80 | EXTERNAL | [...] + + + + | Monocytes | 8.7 | 0 - 12 | EXTERNAL | | | %, External | | | LAB | | + + + + + + | Eosinophils | 4.9 | 0 - 6 | EXTERNAL | | | %, | | | LAB | | | External | | | | | + + + + + + | RBC, | 4.41 | 4.3 - 5.7 | EXTERNAL | | | External | | | LAB | | + + + + + + | MCV, | 94 | 81 - 99 | EXTERNAL | | | External | | | LAB | | + + + + + + | RDW, | 13.3 | 10.5 - 15 | EXTERNAL | | | External | | | LAB | | + + + + + + + + | Resulting Agency Comment | + + | [facility] | + + + +---------+ + + | Performing | Address | City/State/Zipcode | Phone Number | | Organization | | | | + +---------+ + + | EXTERNAL LAB | | | | + +---------+ + + External Lab: Triglycerides (05/15/2016) + +-------+ + + + | Component | Value | Ref Range | Performed | Pathologist | | | | | At | Signature | + +-------+ + + + | Triglycerid | 124 | 30 - 150 | EXTERNAL | | | es, | | | LAB | | | External | | | | | + +-------+ + + + + + | Specimen | + + | Blood specimen | | (specimen) | + + + + | Resulting Agency Comment | + + | [facility] | + + + +---------+ + + | Performing | Address | City/State/Zipcode | Phone Number | | Organization | | | | + +---------+ + + | EXTERNAL LAB | | | | + +---------+ + + External Lab: Cholesterol, HDL (05/15/2016) + + + + + + | Component | Value | Ref Range | Performed | Pathologist | | | | | At | Signature | + + + + + + | HDL | 55.8 (A) | 40 mg/dl | EXTERNAL | | | Cholesterol | | | LAB | | | , External | | | | | + + + + + + + + | Specimen | + + | Blood specimen | | (specimen) | + + + + | Resulting Agency Comment | + + | [facility] | + + + +---------+ + + | Performing | Address | City/State/Zipcode | Phone Number | | Organization | | | | + +---------+ + + | EXTERNAL LAB | | | | + +---------+ + + External Lab: Cholesterol, Total (05/15/2016) + +-------+ + + + | Component | Value | Ref Range | Performed | Pathologist | | | | | At | Signature | + +-------+ + + + | Cholesterol | 177 | 200 mg/dl | EXTERNAL | | | , Total, | | | LAB | | | External | | | | | + +-------+ + + + + + | Specimen | + + | Blood specimen | | (specimen) | + + + + | Resulting Agency Comment | + + | [facility] | + + + +---------+ + + | Performing | Address | City/State/Zipcode | Phone Number | | Organization | | | | + +---------+ + + | EXTERNAL LAB | | | | + +---------+ + + External Lab: Cholesterol, LDL (05/15/2016) + +-------+ + + + | Component | Value | Ref Range | Performed | Pathologist | | | | | At | Signature | + +-------+ + + + | LDL | 96 | 100 | EXTERNAL | | | Cholesterol | | | LAB | | | , Direct, | | | | | | External | | | | | + +-------+ + + + + + | Specimen | + + | Blood specimen | | (specimen) | + + + + | Resulting Agency Comment | + + | [facility] | + + + +---------+ + + | Performing | Address | City/State/Zipcode | Phone Number | | Organization | | | | + +---------+ + + | EXTERNAL LAB | | | | + +---------+ + + External Lab: eGFR (05/15/2016) + +--------+ + + + | Component | Value | Ref Range | Performed | Pathologist | | | | | At | Signature | + +--------+ + + + | eGFR, | 72 (A) | 60 | EXTERNAL | | | External | | | LAB | | + +--------+ + + + + + | Specimen | + + | Blood specimen | | (specimen) | + + + + | Resulting Agency Comment | + + | [facility] | + + + +---------+ + + | Performing | Address | City/State/Zipcode | Phone Number | | Organization | | | | + +---------+ + + | EXTERNAL LAB | | | | + +---------+ + + External Lab: Creatinine (05/15/2016) + +-------+ + + + | Component | Value | Ref Range | Performed | Pathologist | | | | | At | Signature | + +-------+ + + + | Creatinine, | 1.03 | 0.5 - 1.5 | EXTERNAL | | | External | | | LAB | | + +-------+ + + + + + | Specimen | + + | Blood specimen | | (specimen) | + + + + | Resulting Agency Comment | + + | [facility] | + + + +---------+ + + | Performing | Address | City/State/Zipcode | Phone Number | | Organization | | | | + +---------+ + + | EXTERNAL LAB | | | | + +---------+ + + documented in this encounter Visit Diagnoses Not on filedocumented in this encounter"
--- OUTSIDE RECORDS SUMMARY | ~2020-04-30 | XMS | Encounter Summary ---
Demographics + + + | Address | [address] | | | [place] [address] | + + + | Home Phone [...] Team Providers + +------+ + | Care A And P Technician Name | Role | Phone | + +------+ + | Meme Burgos MD | PCP | | + +------+ + Reason for Visit + + + | Reason | Comments | + + + | Medication Refill | | + + + Encounter Details +--------+--------+ + + + | Date | Type | Department | Care Team | Description | +--------+--------+ + + + | 05/29/ | Refill | [facility] | [facility] | Medication Refill | | 2012 | | PULMONARY [address] | [place] [address] | | | | | [place], | [place], [place] | | | | | [place] [address] | [address] | | | | | [phone] | | | +--------+--------+ + + + [...] | | | | | [place] [address] | | | | | | [phone] | | | | | | | | +--------+ + + + + | 07/23/ | Office | Pulmonology | [facility] | | | 2019 | Visit | | Tnoy Edwards MD [address] | | | | | | [address] | | | | | | [place] [address] | | | | | | [phone] | | | | | | | | +--------+ + + + + documented as of this encounter Visit Diagnoses Not on filedocumented in this encounter"
--- OUTSIDE RECORDS SUMMARY | ~2020-04-30 | XMS | Encounter Summary ---
Demographics + + + | Address | [address] | | | [place] [address] | + + + | Home Phone | | + + + | Preferred Language | Unknown | + + + | Marital Status | | + + + | Quaker Affiliation | 1013 | + + + [...] Team Providers + +------+ + | Care Farm Contractor Name | Role | Phone | + +------+ + PCP | Unavailable | + +------+ + Encounter Details +--------+ + + + + | Date | Type | Department | Care Team | Description | +--------+ + + + + | 05/04/ | Abstract | [facility] | Juan Paris | | | 2017 | | NEPHROLOGY [address] | M, DO [address] | | | | | [address] | [address] | | | | | [place] | [place] [address] | | | | | [address] | [phone] | | | | | [phone] | | | +--------+ + + + [...] PB | | | | | | [place] [address] | | | | | | [phone] | | | | | | | | +--------+ + + + + | 07/23/ | Office | Pulmonology | J[facility] Roman | | | 2019 | Visit | | Tony Edwards MD [address] | | | | | [address] | | | | | | [place] [address] | | | | | | [phone] | | | | | | | | +--------+ + + + + documented as of this encounter Procedures + +--------+ + + + | Procedure Name | Priori | Date/Time | Associated Diagnosis | Comments | | | ty | | | | + +--------+ + + + | EXTERNAL LAB: BUN | Routin | 05/03/2017 | | Results for this | | | e | | | procedure are in the | | | | | | results section. | + +--------+ + + + | EXTERNAL LAB: | Routin | 05/03/2017 | | Results for this | | GLUCOSE | e | | | procedure are in the | | | | | | results section. | + +--------+ + + + | EXTERNAL LAB: ALT | Routin | 05/03/2017 | | Results for this | | | e | | | procedure are in the | | | | | | results section. | + +--------+ + + + | EXTERNAL LAB: AST | Routin | 05/03/2017 | | Results for this | | | e | | | procedure are in the | | | | | | results section. | + +--------+ + + + | EXTERNAL LAB: | Routin | 05/03/2017 | | Results for this | | ALKALINE PHOSPHATASE | e | | | procedure are in the | | | | | | results section. | + +--------+ + + + | EXTERNAL LAB: | Routin | 05/03/2017 | | Results for this | | BILIRUBIN, TOTAL | e | | | procedure are in the | | | | | | results section. | + +--------+ + + + | EXTERNAL LAB: | Routin | 05/03/2017 | | Results for this | | ALBUMIN | e | | | procedure are in the | | | | | | results section. | + +--------+ + + + | EXTERNAL LAB: | Routin | 05/03/2017 | | Results for this | | PROTEIN, TOTAL | e | | | procedure are in the | | | | | | results section. | + +--------+ + + + | EXTERNAL LAB: | Routin | 05/03/2017 | | Results for this | | PHOSPHORUS | e | | | procedure are in the | | | | | | results section. | + +--------+ + + + | EXTERNAL LAB: | Routin | 05/03/2017 | | Results for this | | CALCIUM | e | | | procedure are in the | | | | | | results section. | + +--------+ + + + | EXTERNAL LAB: CARBON | Routin | 05/03/2017 | | Results for this | | DIOXIDE | e | | | procedure are in the | | | | | | results section. | + +--------+ + + + | EXTERNAL LAB: | Routin | 05/03/2017 | | Results for this | | CHLORIDE | e | | | procedure are in the | | | | | | results section. | + +--------+ + + + | EXTERNAL LAB: | Routin | 05/03/2017 | | Results for this | | POTASSIUM | e | | | procedure are in the | | | | | | results section. | + +--------+ + + + | EXTERNAL LAB: SODIUM | Routin | 05/03/2017 | | Results for this | | | e | | | procedure are in the | | | | | | results section. | + +--------+ + + + | EXTERNAL LAB: | Routin | 05/03/2017 | | Results for this | | PROTEIN, URINE, 24HR | e | | | procedure are in the | | | | | | results section. | + +--------+ + + + | EXTERNAL LAB: MINE | Routin | 05/03/2017 | | Results for this | | | e | | | procedure are in the | | | | | | results section. | + +--------+ + + + | EXTERNAL LAB: | Routin | 05/03/2017 | | Results for this | | TRIGLYCERIDES | e | | | procedure are in the | | | | | | results section. | + +--------+ + + + | EXTERNAL LAB: | Routin | 05/03/2017 | | Results for this | | CHOLESTEROL, HDL | e | | | procedure are in the | | | | | | results section. | + +--------+ + + + | EXTERNAL LAB: | Routin | 05/03/2017 | | Results for this | | CHOLESTEROL, TOTAL | e | | | procedure are in the | | | | | | results section. | + +--------+ + + + | EXTERNAL LAB: | Routin | 05/03/2017 | | Results for this | | CHOLESTEROL, LDL | e | | | procedure are in the | | | | | | results section. | + +--------+ + + + | EXTERNAL LAB: EGFR | Routin | 05/03/2017 | | Results for this | | | e | | | procedure are in the | | | | | | results section. | + +--------+ + + + | EXTERNAL LAB: | Routin | 05/03/2017 | | Results for this | | CREATININE | e | | | procedure are in the | | | | | | results section. | + +--------+ + + + | CREATININE | Routin | 05/03/2017 | | Results for this | | CLEARANCE, RESULT | e | | | procedure are in the | | | | | | results section. | + +--------+ + + + documented in this encounter Results Creatinine Clearance, Result (05/03/2017) + + + + + + | Component | Value | Ref Range | Performed | Pathologist | | | | | At | Signature | + + + + + + | CREATININE | 83.0 (A) | 97.0 - 137.0 | | | | CLEARANCE | | mL/min | | | + + + + + + | 24H Urine | 1,600 | mL | | | | Volume | | | | | + + + + + + + + | Specimen | + + | Urine | + + External Lab: Protein, Urine, 24Hr (05/03/2017) + +-------+ + + + | Component | Value | Ref Range | Performed | Pathologist | | | | | At | Signature | + +-------+ + + + | Protein, | 192 | | EXTERNAL | | | Urine [...] + +---------+ + + External Lab: CBC (05/03/2017) + + + + + + | Component | Value | Ref Range | Performed | Pathologist | | | | | At | Signature | + + + + + + | WBC, | 12.1 (A) | 4.5 - 11 | EXTERNAL | | | External | | | LAB | | + + + + + + | HGB, | 14 | 13.5 - 18 | EXTERNAL | | | External | | | LAB | | + + + + + + | HCT, | 42.4 | 41 - 50 | EXTERNAL | | | External | | | LAB | | + + + + + + | PLT, | 185 | 140 - 440 | EXTERNAL | | | External | | | LAB | | + + + + + + | RBC, | 4.61 | 4.3 - 5.7 | EXTERNAL | [...] + +---------+ + + External Lab: BUN (05/03/2017) + +--------+ + + + | Component | Value | Ref Range | Performed | Pathologist | | | | | At | Signature | + +--------+ + + + | BRENDA, | 25 (A) | 6 - 23 | EXTERNAL | [...] + +---------+ + + External Lab: Glucose (05/03/2017) + +---------+ + + + | Component [...] + +---------+ + + External Lab: ALT (05/03/2017) + +-------+ + + + | Component | Value | Ref Range | Performed | Pathologist | | | | | At | Signature | + +-------+ + + + | ALT, | 17 | 7 - 52 | EXTERNAL | [...] + +---------+ + + External Lab: AST (05/03/2017) + +--------+ + + + | Component [...] +---------+ + + External Lab: Alkaline Phosphatase (05/03/2017) + +-------+ + + + | Component | Value | Ref Range | Performed | Pathologist | | | | | At | Signature | + +-------+ + + + | ALP, | 80 | 31 - 120 | EXTERNAL | [...] +---------+ + + External Lab: Bilirubin, Total (05/03/2017) + +-------+ + + + | Component | Value | Ref Range | Performed | Pathologist | | | | | At | Signature | + +-------+ + + + | Bilirubin, | 1.2 | 0 - 1.2 | EXTERNAL | [...] + +---------+ + + External Lab: Albumin (05/03/2017) + +-------+ + + + | Component [...] +---------+ + + External Lab: Protein, Total (05/03/2017) + +---------+ + + + | Component | Value | Ref Range | Performed | Pathologist | | | | | At | Signature | + +---------+ + + + | Protein, | 5.9 (A) | 6 - 8 | EXTERNAL [...] + +---------+ + + External Lab: Phosphorus (05/03/2017) + +-------+ + + + | Component [...] + +---------+ + + External Lab: Calcium (05/03/2017) + +-------+ + + + | Component [...] +---------+ + + External Lab: Carbon Dioxide (05/03/2017) + +-------+ + + + | Component | Value | Ref Range | Performed | Pathologist | | | | | At | Signature | + +-------+ + + + | Carbon | 26 | 19 - 31 | EXTERNAL | [...] + +---------+ + + External Lab: Chloride (05/03/2017) + +-------+ + + + | Component [...] + +---------+ + + External Lab: Potassium (05/03/2017) + +-------+ + + + | Component [...] + +---------+ + + External Lab: Sodium (05/03/2017) + +-------+ + + + | Component | Value | Ref Range | Performed | Pathologist | | | | | At | Signature | + +-------+ + + + | Sodium, | 140 | 132 - 143 | EXTERNAL | [...] + +---------+ + + External Lab: Triglycerides (05/03/2017) + +-------+ + + + | Component [...] +---------+ + + External Lab: Cholesterol, HDL (05/03/2017) + +-------+ + + + | Component | Value | Ref Range | Performed | Pathologist | | | | | At | Signature | + +-------+ + + + | HDL | 99 | 30 - 150 mg/dl | EXTERNAL | | | Cholesterol [...] +---------+ + + External Lab: Cholesterol, Total (05/03/2017) + +-------+ + + + | Component | Value | Ref Range | Performed | Pathologist | | | | | At | Signature | + +-------+ + + + | Cholesterol | 146 | 200 mg/dl | EXTERNAL | | [...] +---------+ + + External Lab: Cholesterol, LDL (05/03/2017) + +-------+ + + + | Component | Value | Ref Range | Performed | Pathologist | | | | | At | Signature | + +-------+ + + + | LDL | 59 | 100 | EXTERNAL | | | [...] + +---------+ + + External Lab: eGFR (05/03/2017) + +-------+ + + + | Component | Value | Ref Range | Performed | Pathologist | | | | | At | Signature | + +-------+ + + + | eGFR, | 70 | | EXTERNAL | | | External [...] + +---------+ + + External Lab: Creatinine (05/03/2017) + +-------+ + + + | Component | Value | Ref Range | Performed | Pathologist | | | | | At | Signature | + +-------+ + + + | Creatinine, | 1.06 | 0.07 - 1.25 | EXTERNAL | | | [...]
--- OUTSIDE RECORDS SUMMARY | ~2020-04-30 | XMS | Encounter Summary ---
Demographics + + + | Address | [address] | | | [place] [address] | + + + | Home Phone | | + + + | Preferred Language | Unknown | + + + | Marital Status | | + + + | Congregational Affiliation | 1013 | + + + | Race | Unknown | + + + | Ethnic Group | Unknown | + + + Author + + + | Author | [facility] | | | and [place] | + + + | Organization | [facility] | | | [...] Team Providers + +------+ + | Care Professor Of French Name | Role | Phone | + +------+ + | Meme Burgos MD | PCP | | + +------+ + Encounter Details +--------+ + + + + | Date | Type | Department | Care Team | Description | +--------+ + + + + | 08/20/ | Orders Only | [facility] | J[facility] Roman | | | 2018 | | [address] | Tony Edwards MD [address] | | | | | [place] [address] | [address] | | | | | [address] | [place] [address] | | | | | [phone] | [phone] | | | | | | | [...] [place] | | | | | | [place] [address] | | | | | | [phone] | | | | | | | | +--------+ + + + + | 07/23/ | Office | Pulmonology | Jt Roman | | 2019 | Visit | | Tony Edwards MD [address] | | | | | | [address] | | | | | | [place] [address] | | | | | | [phone] | | | | | | | | +--------+ + + + + documented as of this encounter Procedures + +--------+ + + + | Procedure Name | Priori | Date/Time | Associated Diagnosis | Comments | | | ty | | | | + +--------+ + + + | ALLERGEN PANEL, | Routin | 08/20/2018 | | Results for this | | [facility] | e | 2:05 PM | | procedure are in the | | | | PST | | results section. | + +--------+ + + + | EXTERNAL LAB: CBC | Routin | 08/20/2018 | | Results for this | | | e | 2:04 PM | | procedure are in the | | | | PST | | results section. | + +--------+ + + + | IMMUNOGLOBULIN E | Routin | 08/20/2018 | | Results for this | | | e | 2:04 PM | | procedure are in the | | | | PST | | results section. | + +--------+ + + + documented in this encounter Results Allergen Panel, [facility] (08/20/2018 2:05 PM PST) + + + + + + | Component | Value | Ref Range | Performed | Pathologist | | | | | At | Signature | + + + + + + | Class | (See Below)Comment: | | EXTERNAL | | | Description | Levels of Specific IgE | | LAB | | | | Class | | | | | | Description of Class | | | | | | | | | | | | | | | | | | --- ----- | | | | | | | | | | | | | | | | | | < 0.10 0 | | | | | | Negative | | | | | | 0.10 - | | | | | | 0.31 0/I | | | | | | Equivocal/Low | | | | | | 0.32 - | | | | | | 0.55 I | | | | | | Low | | | | | | 0.56 - 1.40 | | | | | | II | | | | | | Moderate | | | | | | 1.41 - 3.90 | | | | | | III High | | | | | | 3.91 - | | | | | | 19.00 IV | | | | | | Very High | | | | | | 19.01 - 100.00 | | | | | | V | | | | | | Very High | | | | | | >100.00 | | | | | | | | | | | | Very High | | | | + + + + + + | Immunoglobu | 33Comment: Reference | [iU]/mL | EXTERNAL | | | karan IgE | range: 0 to 100 | | LAB | | + + + + + + | Mite Dust | <0.10Comment: Reference | kU/L | EXTERNAL | | | Pteronyssin | range: Class 0 | | LAB | | | us IgE | | | | | + + + + + + | Cat Dander | <0.10Comment: Reference | kU/L | EXTERNAL | | | IgE | range: Class 0 | | LAB | | + + + + + + | DOG | <0.10Comment: Reference | kU/L | EXTERNAL | | | EPITHELIUM | range: Class 0 | | LAB | | + + + + + + | Venkata | <0.10Comment: Reference | kU/L | EXTERNAL | | | Grass IgE | range: Class 0 | | LAB | | + + + + + + | Cockroach,I | 0.22 (A)Comment: | kU/L | EXTERNAL | | | ge | Reference range: Class | | LAB | | | | 0/I | | | | + + + + + + | ALLERGEN | <0.10Comment: Reference | kU/L | EXTERNAL | | | ALTERNARIA | range: Class 0 | | LAB | | | ALTERNATA | | | | | | IGE | | | | | + + + + + + | Rendon Delavan | <0.10Comment: Reference | kU/L | EXTERNAL | | | IgE | range: Class 0 | | LAB | | + + + + + + | Panther Burn | <0.10Comment: Reference | kU/L | EXTERNAL | | | IgE | range: Class 0 | | LAB | | + + + + + + | SILVER | <0.10Comment: Reference | kU/L | EXTERNAL | | | BIRCH, IGE | range: Class 0 | | LAB | | + + + + + + | [place] Tree | <0.10Comment: Reference | kU/L | EXTERNAL | | | IgE | range: Class 0 | | LAB | | + + + + + + | Pavillion Tree | <0.10Comment: Reference | kU/L | EXTERNAL | | | IgE | range: Class 0 | | LAB | | + + + + + + | Pigweed | <0.10Comment: Reference | kU/L | EXTERNAL | | | Grass IgE | range: Class 0 | | LAB | | + + + + + + | Thai | <0.10Comment: Reference | kU/L | EXTERNAL | | | Thistle IgE | range: Class 0 | | LAB | | + + + + + + | Allergen | <0.10Comment: Reference | kU/L | EXTERNAL | | | Ragweed, | range: Class 0 | | LAB | | | Western | | | | | + + + + + + + + | Specimen | + + | | + + + +---------+ + + | Performing | Address | City/State/Zipcode | Phone Number | | Organization | | | | + +---------+ + + | EXTERNAL LAB | | | | + +---------+ + + External Lab: CBC (08/20/2018 2:04 PM PST) + + + + + + | Component | Value | Ref Range | Performed | Pathologist | | | | | At | Signature | + + + + + + | WBC | 13.46 (H) | 3.80 - 11.00 | EXTERNAL | | | | | 10*3/uL | LAB | | + + + + + + | Non- | 4.85 | 4.20 - 5.70 | EXTERNAL | | | Red Blood | | 10*6/uL | LAB | | | Cells | | | | | | Counted | | | | | + + + + + + | Hemoglobin | 14.9 | 13.2 - 17.0 | EXTERNAL | | | | | g/dL | LAB | | + + + + + + | Hematocrit, | 44.8 | 39.0 - 50.0 % | EXTERNAL | | | POC | | | LAB | | + + + + + + | MCV | 92.3 | 80.0 - 100.0 fL | EXTERNAL | | | | | | LAB | | + + + + + + | MCH | 30.7 | 27.0 - 34.0 pg | EXTERNAL | | | | | | LAB | | + + + + + + | MCHC | 33.3 | 32.0 - 35.5 | EXTERNAL | | | | | g/dL | LAB | | + + + + + + | RDW-CV | 45.1 | 37 - 53 fL | EXTERNAL | | | | | | LAB | | + + + + + + | Platelet | 260 | 150 - 400 | EXTERNAL | | | Count | | 10*3/uL | LAB | | | Plasma | | | | | + + + + + + | MPV | 6.9 | fL | EXTERNAL | | | | | | LAB | | + + + + + + | Differentia | AUTOMATED | | EXTERNAL | | | l Type | | | LAB | | + + + + + + | % Segmented | 89.51 | % | EXTERNAL | | | | | | LAB | | | Neutrophils | | | | | + + + + + + | % | 4.56 | % | EXTERNAL | | | Lymphocytes | | | LAB | | + + + + + + | % Monocytes | 5.57 | % | EXTERNAL | | | | | | LAB | | + + + + + + | % | 0.16 | % | EXTERNAL | | | Eosinophils | | | LAB | | + + + + + + | % Basophils | 0.20 | % | EXTERNAL | | | | | | LAB | | + + + + + + | Absolute | 12.05 (H) | 1.90 - 7.40 | EXTERNAL | | | Segmented | | 10*3/uL | LAB | | | Neutrophils | | | | | + + + + + + | Absolute | 0.61 (L) | 1.00 - 3.90 | EXTERNAL | | | Lymphocytes | | 10*3/uL | LAB | | + + + + + + | Absolute | 0.75 | 0.00 - 0.80 | EXTERNAL | | | Monocytes | | 10*3/uL | LAB | | + + + + + + | Absolute | 0.02 | 0.00 - 0.50 | EXTERNAL | | | Eosinophils | | 10*3/uL | LAB | | + + + + + + | Absolute | 0.03 | 0.00 - 0.10 | EXTERNAL | | | Basophils | | 10*3/uL | LAB | | + + + + + + | RBC | RBC AND PLT MORPHOLOGY | | EXTERNAL | | | Morphology | APPEAR NORMAL | | LAB | | + + + + + + | Differentia | SLIDE SCANNED, AGREES | | EXTERNAL | | | l Comments | WITH AUTOMATED RESULTS. | | LAB | | + + + + + + + + | Specimen | + + | Blood specimen | | (specimen) | + + + +---------+ + + | Performing | Address | City/State/Zipcode | Phone Number | | Organization | | | | + +---------+ + + | EXTERNAL LAB | | | | + +---------+ + + Immunoglobulin E (08/20/2018 2:04 PM PST) + + + + + + | Component | Value | Ref Range | Performed | Pathologist | | | | | At | Signature | + + + + + + | Immunoglobu | 33Comment: Reference | [iU]/mL | EXTERNAL | | | karan IgE | range: 0 to 100 | | LAB | | + + [...]
--- OUTSIDE RECORDS SUMMARY | ~2020-04-30 | XMS | Encounter Summary ---
Demographics + + + | Address | [address] | | | [place] [address] | + + + | Home Phone | | + + + | Preferred Language | Unknown | + + + | Marital Status | | + + + | Adventism Affiliation | 1013 | + + + | Race | Unknown | + + + | Ethnic Group | Unknown | + + + Author + + + | Author | [facility] | | | and [place] | + + + | Organization | [facility] | | [...] Team Providers + +------+ + | Care Asbestos Cloth Inspector Name | Role | Phone | + +------+ + PCP | Unavailable | + +------+ + Encounter Details +--------+ + + + + | Date | Type | Department | Care Team | Description | +--------+ + + + + | 09/27/ | [facility] | [facility] | Juan Paris | 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, 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.] | | | | | bronchitis ([facility]), | | | | [...] | | | | | | ([facility]), Essential | | | | | | [...] + + + +---------+ + + | gabapentin | Take 1 capsule by | 60 | 11 | 03/28/20 | | | (NEURONTIN) 300 mg | mouth 2 times daily. | capsule | | 16 | 7 | | capsule | | | | | | + + + +---------+ + + | losartan (COZAAR) | Take 25 mg by mouth | | 0 | | | | 100 MG | Daily. 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 Accompanied by family, ambulatory. Priya Naranjo RN hyahir, Sunshine Edwards RN - 09/27/2016 8:53 AM PSTEnergy level: good Fever or chills: no Appetite: good, drinking fluids well Nausea and/or vomiting: no Bowels: okay Numbness and tingling: no Bleeding or bruising: no Karnofsky: 90% Nurses notes: RN check for Rituxan infusion for Dr Paris today. Alert & oriented. Den ies pain, discomfort or concerns documented in this encounter Miscellaneous Notes Addendum Note - Sunshine Murphy RN - 09/27/2016 4:08 PM PSTEncounter addended by: Anne Murphy RN on: 09/27/2016 16:08
Documentation filed: Charges VN documented in this encounter Plan of Treatment [...] PB | | | | | | [place] [address] | | | | | | [phone] | | | | | | | | +--------+ + + + + | 07/23/ | Office | Pulmonology | [facility] Roman | | | 2019 | Visit | | Tony Edwards MD [address] | | | | | [address] | | | | | | [place] [address] | | | | | | [phone] | | | | | | | [...] | acetaminophen (TYLENOL) tablet | Given | 09/27/20 | 650 mg | | | | 650 mg 650 mg, Oral, ONCE, Sun | | 16 8:44 | | | | | 09/27/16 at 0845, For 1 dose, | | AM PST | | | | | Administer 30 minutes prior to | | | | | | | infusion. Maximum dose of | | | | | | | acetaminophen is 3000mg from all | | | | | | | sources in 24 hours., | | | | | | + +--------+ +--------+------+------+ +---+---+ | | | +---+---+ + +-------+ +-------+---+---+ | diphenhydrAMINE (BENADRYL) | Given | 09/27/20 | 25 mg | | | | injection 25 mg 25 mg, | | 16 8:45 | | | | | Intravenous, ONCE, Sun09/27/16 | | AM PST | | | | | at 0845, For 1 dose, Administer | | | | | | | 30 mins prior to infusion. RN to | | | | | | | administer IV or PO, not both, | | | | | | + +-------+ +-------+---+---+ +---+---+ | | | +---+---+ + +---------+ + +---+---+ | riTUXimab (RITUXAN) 1,000 mg in | New Bag | 09/27/20 | 1,000 mg | | | | sodium chloride 0.9% 1,000 mL | | 16 9:09 | | | | | infusion 1,000 mg, Intravenous, | | AM PST | | | | | ONCE, Sun09/27/16 at 0845, For 1 | | | | | | | dose, Subsequest infusions (if | | | | | | | tolerated initial): Start at 100 | | | | | | | mg/hr. If no reaction, increase | | | | | | | by 100 mg/hr increments every 30 | | | | | | | min, to a maximum of 400 mg/hour. | | | | | | | If reaction occurs, stop | | | | | | | infusion. If reaction abates, | | | | | | | restart infusion at 50% of | | | | | | | previous rate., | | | | | | + +---------+ + +---+---+ +---+---+ | | | +---+---+ documented in this encounter"
--- OUTSIDE RECORDS SUMMARY | ~2020-04-30 | XMS | Encounter Summary ---
Demographics + + + | Address | [address] | | | [place] [address] | + + + | Home Phone | | + + + | Preferred Language | Unknown | + + + | Marital Status | | + + + | Latter-Day Affiliation | 1013 | + + + | Race | Unknown | + + + | Ethnic Group | Unknown | + + + Author + + + | Author | [facility] | | | and [place] | + + + | Organization | [facility] | | [...] Team Providers + +------+ + | Care Dock Attendant Name | Role | Phone | + +------+ + PCP | Unavailable | + +------+ + Encounter Details +--------+ + + + + | Date | Type | Department | Care Team | Description | +--------+ + + + + | 12/22/ | Abstract | [facility] | Juan Paris | | | 2015 | | NEPHROLOGY [address] | M, DO [address] | | | | | [address] | [address] | | | | | [place] | [place] [address] | | | | | [address] | [phone] | | | | | [phone] | | | +--------+ + + + [...] [place] | | | | | | [place] [address] | | | | | | [phone] | | | | | | | | +--------+ + + + + | 07/23/ | Office | Pulmonology | Jt Roman | | | 2019 | Visit | | Tony Edwards MD [address] | | | | | [address] | | | | | | [place] [address] | | | | | | [phone] | | | | | | | | +--------+ + + + + documented as of this encounter Procedures + +--------+ + + + | Procedure Name | Priori | Date/Time | Associated Diagnosis | Comments | | | ty | | | | + +--------+ + + + | EXTERNAL LAB: BUN | Routin | 12/22/2015 | | Results for this | | | e | | | procedure are in the | | | | | | results section. | + +--------+ + + + | EXTERNAL LAB: | Routin | 12/22/2015 | | Results for this | | GLUCOSE | e | | | procedure are in the | | | | | | results section. | + +--------+ + + + | EXTERNAL LAB: TIM | Routin | 12/22/2015 | | Results for this | | | e | | | procedure are in the | | | | | | results section. | + +--------+ + + + | EXTERNAL LAB: KRIS | Routin | 12/22/2015 | | Results for this | | | e | | | procedure are in the | | | | | | results section. | + +--------+ + + + | EXTERNAL LAB: | Routin | 12/22/2015 | | Results for this | | ALKALINE PHOSPHATASE | e | | | procedure are in the | | | | | | results section. | + +--------+ + + + | EXTERNAL LAB: | Routin | 12/22/2015 | | Results for this | | BILIRUBIN, TOTAL | e | | | procedure are in the | | | | | | results section. | + +--------+ + + + | EXTERNAL LAB: | Routin | 12/22/2015 | | Results for this | | ALBUMIN | e | | | procedure are in the | | | | | | results section. | + +--------+ + + + | EXTERNAL LAB: | Routin | 12/22/2015 | | Results for this | | PROTEIN, TOTAL | e | | | procedure are in the | | | | | | results section. | + +--------+ + + + | EXTERNAL LAB: | Routin | 12/22/2015 | | Results for this | | CALCIUM | e | | | procedure are in the | | | | | | results section. | + +--------+ + + + | EXTERNAL LAB: CARBON | Routin | 12/22/2015 | | Results for this | | DIOXIDE | e | | | procedure are in the | | | | | | results section. | + +--------+ + + + | EXTERNAL LAB: | Routin | 12/22/2015 | | Results for this | | CHLORIDE | e | | | procedure are in the | | | | | | results section. | + +--------+ + + + | EXTERNAL LAB: | Routin | 12/22/2015 | | Results for this | | POTASSIUM | e | | | procedure are in the | | | | | | results section. | + +--------+ + + + | EXTERNAL LAB: SODIUM | Routin | 12/22/2015 | | Results for this | | | e | | | procedure are in the | | | | | | results section. | + +--------+ + + + | EXTERNAL LAB: | Routin | 12/22/2015 | | Results for this | | URINALYSIS | e | | | procedure are in the | | | | | | results section. | + +--------+ + + + | EXTERNAL LAB: CBC | Routin | 12/22/2015 | | Results for this | | | e | | | procedure are in the | | | | | | results section. | + +--------+ + + + | EXTERNAL LAB: EGFR | Routin | 12/22/2015 | | Results for this | | | e | | | procedure are in the | | | | | | results section. | + +--------+ + + + | EXTERNAL LAB: | Routin | 12/22/2015 | | Results for this | | CREATININE | e | | | procedure are in the | | | | | | results section. | + +--------+ + + + | HEMOGLOBIN A1C | Routin | 12/22/2015 | | Results for this | | | e | | | procedure are in the | | | | | | results section. | + +--------+ + + + documented in this encounter Results Hemoglobin A1C (12/22/2015) + +-------+ + + + | Component | Value | Ref Range | Performed | Pathologist | | | | | At | Signature | + +-------+ + + + | Hemoglobin | 6.1 | | EXTERNAL | | | A1c, | | | LAB | | | external | | | | | + +-------+ + + + + + | Specimen | + + | Blood specimen | | (specimen) | + + + +---------+ + + | Performing | Address | City/State/Zipcode | Phone Number | | Organization | | | | + +---------+ + + | EXTERNAL LAB | | | | + +---------+ + + External Lab: BRENDA (12/22/2015) + +-------+ + + + | Component | Value | Ref Range | Performed | Pathologist | | | | | At | Signature | + +-------+ + + + | BUN, | 20 | 6 - 23 | EXTERNAL | | | External | | | LAB | | + +-------+ + + + + +---------+ + + | Performing | Address | City/State/Zipcode | Phone Number | | Organization | | | | + +---------+ + + | EXTERNAL LAB | | | | + +---------+ + + External Lab: Glucose (12/22/2015) + +---------+ + + + | Component | Value | Ref Range | Performed | Pathologist | | | | | At | Signature | + +---------+ + + + | Glucose, | 120 (A) | 70 - 100 | EXTERNAL | | | External | | | LAB | | + +---------+ + + + + +---------+ + + | Performing | Address | City/State/Zipcode | Phone Number | | Organization | | | | + +---------+ + + | EXTERNAL LAB | | | | + +---------+ + + External Lab: ALT (12/22/2015) + +-------+ + + + | Component | Value | Ref Range | Performed | Pathologist | | | | | At | Signature | + +-------+ + + + | ALT, | 16 | | EXTERNAL | | | External | | | LAB | | + +-------+ + + + + +---------+ + + | Performing | Address | City/State/Zipcode | Phone Number | | Organization | | | | + +---------+ + + | EXTERNAL LAB | | | | + +---------+ + + External Lab: AST (12/22/2015) + +-------+ + + + | Component | Value | Ref Range | Performed | Pathologist | | | | | At | Signature | + +-------+ + + + | AST, | 14 | | EXTERNAL | | | External | | | LAB | | + +-------+ + + + + +---------+ + + | Performing | Address | City/State/Zipcode | Phone Number | | Organization | | | | + +---------+ + + | EXTERNAL LAB | | | | + +---------+ + + External Lab: Alkaline Phosphatase (12/22/2015) + +-------+ + + + | Component | Value | Ref Range | Performed | Pathologist | | | | | At | Signature | + +-------+ + + + | ALP, | 65 | | EXTERNAL | | | External | | | LAB | | + +-------+ + + + + +---------+ + + | Performing | Address | City/State/Zipcode | Phone Number | | Organization | | | | + +---------+ + + | EXTERNAL LAB | | | | + +---------+ + + External Lab: Bilirubin, Total (12/22/2015) + +-------+ + + + | Component | Value | Ref Range | Performed | Pathologist | | | | | At | Signature | + +-------+ + + + | Bilirubin, | 0.9 | | EXTERNAL | | | Total, | | | LAB | | | External | | | | | + +-------+ + + + + +---------+ + + | Performing | Address | City/State/Zipcode | Phone Number | | Organization | | | | + +---------+ + + | EXTERNAL LAB | | | | + +---------+ + + External Lab: Albumin (12/22/2015) + +---------+ + + + | Component | Value | Ref Range | Performed | Pathologist | | | | | At | Signature | + +---------+ + + + | Albumin, | 3.2 (A) | 3.5 - 5 | EXTERNAL | | | External | | | LAB | | + +---------+ + + + + +---------+ + + | Performing | Address | City/State/Zipcode | Phone Number | | Organization | | | | + +---------+ + + | EXTERNAL LAB | | | | + +---------+ + + External Lab: Protein, Total (12/22/2015) + +---------+ + + + | Component | Value | Ref Range | Performed | Pathologist | | | | | At | Signature | + +---------+ + + + | Protein, | 4.9 (A) | 6 - 8 | EXTERNAL [...] + +---------+ + + External Lab: Calcium (12/22/2015) + +-------+ + + + | Component | Value | Ref Range | Performed | Pathologist | | | | | At | Signature | + +-------+ + + + | Calcium, | 8.7 | 8.4 - 10.2 | EXTERNAL | | | External | | | LAB | | + +-------+ + + + + +---------+ + + | Performing | Address | City/State/Zipcode | Phone Number | | Organization | | | | + +---------+ + + | EXTERNAL LAB | | | | + +---------+ + + External Lab: Carbon Dioxide (12/22/2015) + +-------+ + + + | Component | Value | Ref Range | Performed | Pathologist | | | | | At | Signature | + +-------+ + + + | Carbon | 28 | 23 - 32 | EXTERNAL | [...] + +---------+ + + External Lab: Chloride (12/22/2015) + +-------+ + + + | Component [...] + +---------+ + + External Lab: Potassium (12/22/2015) + +-------+ + + + | Component | Value | Ref Range | Performed | Pathologist | | | | | At | Signature | + +-------+ + + + | Potassium, | 4.3 | 3.5 - 5.1 | EXTERNAL | | | External | | | LAB | | + +-------+ + + + + +---------+ + + | Performing | Address | City/State/Zipcode | Phone Number | | Organization | | | | + +---------+ + + | EXTERNAL LAB | | | | + +---------+ + + External Lab: Sodium (12/22/2015) + +-------+ + + + | Component | Value | Ref Range | Performed | Pathologist | | | | | At | Signature | + +-------+ + + + | Sodium, | 142 | 135 - 145 | EXTERNAL | | | External | | | LAB | | + +-------+ + + + + +---------+ + + | Performing | Address | City/State/Zipcode | Phone Number | | Organization | | | | + +---------+ + + | EXTERNAL LAB | | | | + +---------+ + + External Lab: Urinalysis (12/22/2015) + + + + + + | Component | Value | Ref Range | Performed | Pathologist | | | | | At | Signature | + + + + + + | UA Blood, | 10 (A) | 0 | EXTERNAL | | | External | | | LAB | | + + + + + + | UA Glucose, | normal | 0 | EXTERNAL | | | External | | | LAB | | + + + + + + | UA Ketones, | negative | | EXTERNAL | | | External | | | LAB | | + + + + + + | UA Ph, | 6 | | EXTERNAL | | | External | | | LAB | | + + + + + + | UA | 500 (A) | 0 | EXTERNAL | | | Proteins, | | | LAB | | | External | | | | | + + + + + + | UA RBC, | 10 (A) | 0 | EXTERNAL | | | External | | | LAB | | + + + + + + | UA Specific | 1.011 | | EXTERNAL | | | [place], | | | LAB | | | External | | | | | + + + + + + | UA | negative | | EXTERNAL | | | Leukocyte | | | LAB | | | Esterase, | | | | | | External | | | | | + + + + + + + +---------+ + + | Performing | Address | City/State/Zipcode | Phone Number | | Organization | | | | + +---------+ + + | EXTERNAL LAB | | | | + +---------+ + + External Lab: CBC (12/22/2015) + + + + + + | Component | Value | Ref Range | Performed | Pathologist | | | | | At | Signature | + + + + + + | WBC, | 13.2 (A) | 4 - 11 | EXTERNAL | | | External | | | LAB | | + + + + + + | HGB, | 14.4 | 14 - 17 | EXTERNAL | | | External | | | LAB | | + + + + + + | HCT, | 43.2 | 38 - 51 | EXTERNAL | | | External | | | LAB | | + + + + + + | PLT, | 190 | 140 - 440 | EXTERNAL | | | External | | | LAB | | + + + + + + | RBC, | 4.69 | 4 - 6 | EXTERNAL | | | External | | | LAB | | + + + + + + | MCV, | 92 | | EXTERNAL | | | External | | | LAB | | + + + + + + | RDW, | 13 | | EXTERNAL | | | External | | | LAB | | + + + + + + + +---------+ + + | Performing | Address | City/State/Zipcode | Phone Number | | Organization | | | | + +---------+ + + | EXTERNAL LAB | | | | + +---------+ + + External Lab: eGFR (12/22/2015) + +-------+ + + + | Component | Value | Ref Range | Performed | Pathologist | | | | | At | Signature | + +-------+ + + + | eGFR, | 87 | 60 | EXTERNAL | | | [...] + +---------+ + + External Lab: Creatinine (12/22/2015) + +-------+ + + + | Component | Value | Ref Range | Performed | Pathologist | | | | | At | Signature | + +-------+ + + + | Creatinine, | 0.88 | 0.6 - 1.3 | EXTERNAL | [...]
--- OUTSIDE RECORDS SUMMARY | ~2020-04-30 | XMS | Encounter Summary ---
Demographics + + + | Address | [address] | | | [place] [address] | + + + | Home Phone [...] Team Providers + +------+ + | Care Public Relations Intern Name | Role | Phone | + +------+ + PCP | Unavailable | + +------+ + Encounter Details +--------+ + + + + | Date | Type | Department | Care Team | Description | +--------+ + + + + | 10/23/ | Documentati | [facility] | Juan Paris | | | 2016 | on | NEPHROLOGY [address] | M, DO [address] | | | | | [address] | [address] [place] | | | | | [place] | [place] [address] | | | | | [address] | [phone] | | | | | [phone] | | | +--------+ + + + [...] | | | | | | [place] [address] | | | | | | [phone] | | | | | | | | +--------+ + + + + | 07/23/ | Office | Pulmonology | Jt Roman | | | 2019 | Visit | | Tony Edwards MD [address] | | | | | [address] | | | | | | [place] [address] | | | | | | [phone] | | | | | | | | +--------+ + + + + documented as of this encounter Visit Diagnoses Not on filedocumented in this encounter"
--- OUTSIDE RECORDS SUMMARY | ~2020-04-30 | XMS | Encounter Summary ---
Demographics + + + | Address | [address] | | | [place] [address] | + + + | Home Phone | | + + + | Preferred Language | Unknown | + + + | Marital Status | | + + + | Shinto Affiliation | 1013 | + + + [...] Team Providers + +------+ + | Care Track Mechanic Name | Role | Phone | + +------+ + | Meme Burgos MD | PCP | | + +------+ + Encounter Details +--------+ + + + + | Date | Type | Department | Care Team | Description | +--------+ + + + + | 12/03/ | Hospital | [facility] | Conversion | Centrilobular | | 2019 | Encounter | PULMONARY FUNCTION | Transaction, | emphysema (HCC) | | | | LAB [address] | Provider Unknown | | | | | [place], [place] | [phone] | | | | | [address] | | | | | | [phone] | | | +--------+ + + + [...] + + + +---------+ + + | citalopram | Take 10 mg by mouth | | 0 | /30/20 | | | (CELEXA) 10 mg | daily. | | | 18 | | | tablet | | | | | | + + + +---------+ + + | guaiFENesin | Take 600 mg by mouth | | 0 | | | | (MUCINEX) 600 mg 12 | 2 times daily. | | | | | | hr [...] | | | | | | | COPD, severe (HCC), | | | | | | | Mixed | | | | | | | hyperlipidemia | | | | | | + [...] + + + +---------+ + + | tamsulosin | Take 0.4 mg by mouth | | 0 | 04/30/20 | | | (FLOMAX) 0.4 mg CAPS | every evening. Take | | | 18 | | | | 2 tabs nightly | | | | | + + [...] + + + +---------+ + + | beclomethasone HFA | Inhale 2 puffs into | | 0 | 08/20/20 | | | (ZAHIDA REDTELLYALER) 80 | the lungs 2 (two) | | | 18 | 9 | | mcg/puff inhaler | times daily. | | | | | + + + +---------+ + + | doxycycline | Take 100 mg by mouth | | 0 | 08/16/20 | | | (ADOXA) 100 MG | 2 (two) times | | | 18 | 9 | | tablet | daily. FOR 10 DAYS | | | | | + + + +---------+ + + | FLUTICASONE | INSTILL 1-2 SPRAYS | | 0 | 05/27/20 | | | PROPIONATE, NASAL, | IN EACH NOSTRIL | | | 18 | 9 | | NA | EVERY DAY FOR NASAL | | | | | | | ALLERGIES | | | | | + + [...] + + + +---------+ + + | hydrOXYzine | Take 25 mg by mouth | | 0 | 08/16/20 | | | hydrochloride | every 6 (six) hours | | | 18 | 0 | | (ATARAX) 25 mg | as needed. FOR | | | | | | tablet | ANXIETY | | | | | + + [...] + + + +---------+ + + | montelukast | Take 1 tablet by | | 0 | 08/20/20 | | | (SINGULAIR) 10 mg | mouth nightly. | | | 18 | 9 | | tablet | | [...] + + + +---------+ + + | salmeterol | Inhale 1 puff into | | 0 | 08/16/20 | | | (SEREVENT DISKUS) 50 | the lungs 2 (two) | | | 18 | 9 | | mcg/puff diskus | times daily. | | | | | | inhaler [...] + + + +---------+ + + | UNABLE TO FIND | INHALE 2 PUFFS BY | | 0 | 05/27/20 | | | | MOUTH EVERY SIX | | | 18 | 9 | | | HOURS NEEDED FOR | | | | | | | WHEEZING/SHORTNESS | | | | | | | OF BREATH | | | | | + + + +---------+ + + | UNABLE TO FIND | APPLY THIN FILM TO | | 0 | 04/22/20 | | | | AFFECTED AREA EVERY | | | 18 | 9 | | | DAY | | | | | + + + +---------+ + + documented as of this encounter Procedure Notes Jt Roman MD - 12/03/2018 11:59 PM PSTFormatting of this note might be dif ferent from the original. Procedures by Jt Roman MD at 12/03/182358 Author: Jt Roman MD Service: Pulmonology Author Type: Physician Filed: 12/04/18 0844 Date of Service: 12/03/182358 Status: Signed Wet Press Tender: tJ Roman MD (Physician) Procedure Orders: 1. Complete PFT - Pre & Post Spirometry, PLETH & DLCO [[id number]] ordered by Jt Roman MD at 10/21/18 1317 [facility] Service: Pulmonology PULMONARY FUNCTION TEST Name : Sierra Roman : 1950 REASON FOR TESTING: Emphysema FINDINGS SPIROMETRY: 1. FEV-1/FVC is 0.41 2. FEV-1 is 1.00L/28% 3. FVC is 2.45L/51% 4.There is no significant bronchodilator response. LUNG VOLUMES: 1. TLC is 9.09L/122% 2. RV/TLC is 0.71 DIFFUSING CAPACITY: 1. Diffusing capacity is 43% 2. DLCO/VA is 49% INTERPRETATION: 1. Very severe obstructive lung disease is present. 2. There is no significant change after bronchodilators. 3. Both hyperinflation and air trapping are present. 4. Diffusing is moderately reduced. Jt Roman MD 12/04/2018 8:43 AM documented in this encounter Plan of Treatment +--------+ + + + + | Date | Type | Specialty | Care Team | Description | +--------+ + + + + | 05/24/ | Off-Site | Nephrology | Juan Pairs | | | 2019 | Visit | | M, DO [address] | | | | | | [place] | | | | | | [place] [address] | | | | | | [phone] | | | | | | | | +--------+ + + + + | 07/23/ | Office | Pulmonology | Jt Roman | | | 2019 | Visit | | Tony Edwards MD [address] | | | | [address] | | | | | | [place] [address] | | | | | | [phone] | | | | | | | | +--------+ + + + + documented as of this encounter Visit Diagnoses + + | Diagnosis | + + | Centrilobular emphysema (HCC) | + + documented in this encounter"
--- OUTSIDE RECORDS SUMMARY | ~2020-04-30 | XMS | Encounter Summary ---
Demographics + + + | Address | [address] | | | [place] [address] | + + + | Home Phone [...] Team Providers + +------+ + | Care Sourcing Analyst Name | Role | Phone | + +------+ + | Meme Burgos MD | PCP | | + +------+ + Encounter Details +--------+ + + + + | Date | Type | Department | Care Team | Description | +--------+ + + + + | 11/03/ | Orders Only | [facility] | Juan Paris | Chronic kidney | | 2019 | | NEPHROLOGY [address] | M, DO [address] | disease, stage II | | | | [address] | [address] [place] | (mild) (Primary Dx); | | | | [place], [place] | [place] [address] | Mixed | | | | [address] | [phone] | hyperlipidemia; | | | | [phone] | | Vitamin D deficiency | +--------+ [...] | | Former User | | | 03/13/20 | | | | | 17 | [...] [place] | | | | | | [place] [address] | | | | | | [phone] | | | | | | | | +--------+ + + + + | 07/23/ | Office | Pulmonology | Jt Roman | | | 2019 | Visit | | Tony Edwards MD [address] | | | | | [address] | | | | | | [place] [address] | | | | | | [phone] | | | | | | | [...]
--- OUTSIDE RECORDS SUMMARY | ~2020-04-30 | XMS | Encounter Summary ---
Demographics + + + | Address | [address] | | | [place] [address] | + + + | Home Phone [...] Team Providers + +------+ + | Care Curtain Fitter Name | Role | Phone | + +------+ + PCP | Unavailable | + +------+ + Encounter Details +--------+ + + + + | Date | Type | Department | Care Team | Description | +--------+ + + + + | 05/01/ | Abstract | [facility] | Juan Paris | | | 2013 | | NEPHROLOGY [address] | M, DO [address] | | | | | [address] | [address] [place] | | | | | [place] | [place] [address] | | | | | [address] | [phone] | | | | | [phone] | | | +--------+ + + + [...] [place] | | | | | | [place] [address] | | | | | | [phone] | | | | | | | | +--------+ + + + + | 07/23/ | Office | Pulmonology | Jt Roman | | | 2019 | Visit | | Tony Edwards MD [address] | | | | | [address] | | | | | | [place] [address] | | | | | | [phone] | | | | | | | | +--------+ + + + + documented as of this encounter Procedures + +--------+ + + + | Procedure Name | Priori | Date/Time | Associated Diagnosis | Comments | | | ty | | | | + +--------+ + + + | EXTERNAL LAB: EGFR | Routin | 04/27/2014 | | Results for this | | | e | | | procedure are in the | | | | | | results section. | + +--------+ + + + documented in this encounter Results External Lab: eGFR (04/27/2014) + +-------+ + + + | Component | Value | Ref Range | Performed | Pathologist | | | | | At | Signature | + +-------+ + + + | eGFR, | 77 | | EXTERNAL | | | External | | | LAB | | + +-------+ + + + | eGFR, | | | EXTERNAL | | | | | | LAB | | | [place], | | | | | | External [...]
--- OUTSIDE RECORDS SUMMARY | ~2020-04-30 | XMS | Encounter Summary ---
Demographics + + + | Address | [address] | | | [place] [address] | + + + | Home Phone [...] Team Providers + +------+ + | Care Quality Assurance Technician Name | Role | Phone | [...] | | | | | Hypertensive | [place] | [address] | | | | | chronic | [address] | [place], | | | | | kidney | [place], | [place] [address] | | | | | disease with | [place] | Phone: | | | | | stage 1 | [address] | [phone] | | | | | through | Phone: | Fax: | | | | | stage 4 | [phone] | [phone] | | | | | chronic | Fax: | | | | | | kidney | [phone] | | | | | | disease, or | | | | | | | unspecified | | | | | | | chronic | | | | | | | kidney | | | | | | | disease | | | | | | | Procedures | | | | | | | HI OFFICE | | | | | | | OUTPATIENT | | | | | | | VISIT 25 | | | | | | | MINUTES | | | + +--------+ + + + + Encounter Details +--------+ + + + + | Date | Type | Department | Care Team | Description | +--------+ + + + + | 11/24/ | Off-Site | [facility] [place] | Juan Paris | Chronic kidney | | 2020 | Visit | NEPHROLOGY [address] | M, DO [address] | disease, stage II | | | | [address] | [address] [place] | (mild) (Primary Dx); | | | | [place], [place] | [place] [address] | 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; | | | | [phone] | | Essential | | | | | | hypertension, | | | | | | benign; COPD, severe | | | | | | (HCC) | +--------+ + + + + [...] + + + | Blood Pressure | 120/60 | 11/24/2019 10:32 AM | | | | | PST | | + + + + + | Pulse | - | - | | + + + + + | Temperature | 36.3 C (97.4 F) | 11/24/2019 10:32 AM | | | | | PST [...] | 91 kg (200 lb 9.9 | 11/24/2019 10:32 AM | | | | oz) | PST | | + + + + + | Height | - | - | | + + + + + | Body Mass Index | 27.21 | 10/29/2019 10:48 AM | | | | | PST | | + + + + + documented in this encounter Progress Notes Juan Paris DO - 11/24/2019 2:00 PM PST Subjective: NEPHROLOGY Patient ID: Sierra Roman is a 69 y.o. male. 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 He initially was treated in 2004 with 6 mo. of prednisone, then, 12 mo. of mycophenolate + 12 weeks prednisone. He was treated with 3 doses of Rituximab 1g, the last on 09/27/16 in consultation with the [facility], at the [facility]. (He had his initial dose of Rituximab 1g, IVPB on 03/14/16). He denies any new edema, wo rsening hypertension, hematuria. He states that his biggest problem unfortunately, is inter mittent dyspnea related to exacerbations of COPD. Currently, he states that he is breathing reasonably. MEDS: Outpatient Medications Marked as Taking for the 11/24/19 encounter (Off-Site Visit) with John Paris DO Medication Sig [...] SOLN Take 3 mLs by nebulization. [DISCONTINUED] Apple Cider Vinegar 500 MG TABS Take 1 tablet by mouth Daily. [DISCONTINUED] APPLE CIDER VINEGAR PO Take 450 mg by mouth. aspirin 81 MG EC tablet Take 81 mg by mouth Daily. B Complex Vitamins (B COMPLEX PO) Take by mouth daily. budesonide-formoterol (SYMBICORT) 160-4.5 mcg/puff inhaler Inhale two inhalations by mo uth twice daily 1 Inhaler 6 Calcium Carb-Cholecalciferol 600-800 MG-UNIT TABS Take 2 [...] tablet Take 10 mg by mouth daily. fish oil 1,000 mg capsule Take 500 mg by mouth daily. furosemide (LASIX) 40 mg tablet Take 1 tablet by mouth Daily. (Patient taking different ly: Take 40 mg by mouth Daily as needed.) 90 tablet 4 [DISCONTINUED] Green Tea, Mara sinensis, (GREEN TEA EXTRACT PO) Take 300 mg by mout h. Green Tea, Camillia sinensis, 315 MG CAPS Take 1 capsule by mouth Daily. guaiFENesin (MUCINEX) 600 mg 12 hr tablet Take 600 mg by mouth 2 times daily. hydrOXYzine hydrochloride (ATARAX) 25 mg tablet Take 25 mg by mouth every 6 (six) hours as needed. FOR ANXIETY losartan (COZAAR) 100 MG tablet Take 25 mg by mouth Daily. metFORMIN (GLUCOPHAGE) 500 mg tablet Take 500 mg by mouth 4 (four) times daily. 2 pills AM 2 pills PM METOPROLOL SUCCINATE ER PO Take 50 mg by mouth nightly. Multiple Vitamins-Minerals (B COMPLEX PLUS VITAMIN C PO) Take 1 tablet by mouth Daily. omeprazole (PRILOSEC) 20 mg capsule Take one capsule by mouth once daily on an empty st omach predniSONE (DELTASONE) 10 mg tablet Take 1 tablet by mouth Daily for 90 days. 30 tablet 2 promethazine-codeine (PHENERGAN WITH CODEINE) 6.25-10 mg/5 mL syrup Take 5 mLs by mouth . 1-3 tsp q 3-8 hrs prn Indications: Cough simvastatin (ZOCOR) 20 mg tablet Take 1 tablet by mouth Daily. 90 tablet 4 tamsulosin (FLOMAX) 0.4 mg CAPS Take 0.4 mg by mouth every evening. Take 2 tabs nightly tiotropium (SPIRIVA) 18 mcg inhalation capsule Inhale 18 mcg into the lungs daily. Allergies Allergen Reactions Amoxicillin Rash, Hives and Shortness Of Breath Lisinopril Cough Objective: BP 120/60 | Temp 36.3 C (97.4 F) | Wt 91 kg (200 lb 9.9 oz) | BMI 27.21 k g/m Physical Exam Heart: Regular rate and rhythm with no S3, S4, murmur or rub. Lungs: Expiratory wheezes at bases, no rales. Abdomen: soft, obese, nontender, NABS. Extremities: no edema, no clubbing, or cyanosis. Lab Results Component Value Date NAEX 143 11/21/2019 KEX 3.8 11/21/2019 CLEX 105 11/21/2019 CO2EX 31 11/21/2019 BUNEX 22 11/21/2019 CREEX 1.02 11/21/2019 EGFREX 72 11/21/2019 GLUEX 184 11/21/2019 CAEX 9.3 11/21/2019 PHOSEX 2.7 11/21/2019 PTHEX 40.55 11/21/2019 WDW3JUI 6.2 05/22/2019 Lab Results Component Value Date CHOLEX 147 11/21/2019 HDLEX 73.9 11/21/2019 LDLEX 56 11/21/2019 TRIGEX 87 11/21/2019 Lab Results Component Value Date WBCEX 12.1 11/21/2019 HGBEX 13.6 11/21/2019 HCTEX 42.3 11/21/2019 PLTEX 164 11/21/2019 Urine Pro/Cr ratio = Lab Results Component Value Date PROTEX 0.112 11/21/2019 Assessment: 1. 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 2. Hypertension-- controlled on losartan. 3. Hyperlipidemia--tolerating simvastatin well. 4. Steroid-induced Type II DM--remains in remission. 5. COPD--compensated today. Plan: 1. I reviewed with Sierra his Scr, proteinuria, and blood pressure. I discussed with him th at his minimal proteinuria and GFR appear stable on low-dose losartan. He appears to have r esponded very well to his initial course of IV rituximab. 2. He is following closely with his Design Architect, Dr. Roman and for his COPD. He state s that in addition, he is undergoing pulmonary rehab. at [facility], [place]. 3. No change in regimen for now. 4. Will plan to see him back in 6 months at the [facility] Clinic at [place], [place]. He will have a CBC, CMP, PO4, iPTH, Vitamin D level, lipid profile, and 24 Hour urine one w cahto prior to that. Electronically signed by Juan Paris DO. 11/24/19 4:03 PM CC: Meme Pope MD, [facility], Nephrology Section, [facility], [place], [place] Jt Roman MDElectronically signed by Juan Paris DO at 0 11/30/2019 10:47 AM PSTdocumented in this encounter Plan of Treatment +--------+ + + + + | Date | Type | Specialty | Care Team | Description | +--------+ + + + + | 05/24/ Off-Site | Nephrology | Juan Paris | | 2019 | Visit | | DO Nis[address] | | | | | | [place] | | | | | | [place] [address] | | | | | | [phone] | | | | | | | | +--------+ + + + + | 07/23/ | Office | Pulmonology | Jt Roman | | | 2019 | Visit | | Tony Edwards MD [address] | | | | [address] | | | | | | [place] [address] | | | | | | [phone] | | | | | | | | +--------+ + + + + documented as of this encounter Procedures + +--------+ + + + | Procedure Name | Priori | Date/Time | Associated Diagnosis | Comments | | | ty | | | | + +--------+ + + + | LABS - EXTERNAL SCAN | | 11/21/2019 | | Results for this | | | | 12:00 AM | | procedure are in the | | | | PST | | results section. | + +--------+ + + + | LABS - EXTERNAL SCAN | | 11/21/2019 | | Results for this | | | | 12:00 AM | | procedure are in the | | | | PST | | results section. | + +--------+ + + + | EXTERNAL LAB: | Routin | 05/22/2019 | | Results for this | | HEMOGLOBIN A1C | e | | | procedure are in the | | | | | | results section. | + +--------+ + + + documented in this encounter Results LABS - EXTERNAL SCAN (11/21/2019 12:00 AM PST) + + + | Narrative | Performed At | + + + | Ordered by an | | | unspecified provider. | | + + + LABS - EXTERNAL SCAN (11/21/2019 12:00 AM PST) + + + | Narrative | Performed At | + + + | Ordered by an | | | unspecified provider. | | + + + External Lab: Hemoglobin A1c (05/22/2019) + +-------+ + + + | Component | Value | Ref Range | Performed | Pathologist | | | | | At | Signature | + +-------+ + + + | Hemoglobin | 6.2 | % | | | | A1c, | | | | | | external | | | | | + +-------+ + + + + + | Specimen | + + | Blood | + + documented in this encounter Visit Diagnoses + + | Diagnosis | + + | Chronic kidney disease, stage II (mild) - Primary Chronic kidney disease, Stage II | | (mild) | + + | Membranous glomerulonephritis Nephritis and nephropathy, not specified as acute or | | chronic, with lesion of membranous glomerulonephritis | + + | Essential hypertension, benign | + + | COPD, severe (HCC) Chronic airway obstruction, not elsewhere classified | + + documented in this encounter"
--- OUTSIDE RECORDS SUMMARY | ~2020-04-30 | XMS | Encounter Summary ---
Demographics + + + | Address | [address] | | | [place] [address] | + + + | Home Phone [...] Team Providers + +------+ + | Care Career Development Coordinator/Teacher Name | Role | Phone | + +------+ + PCP | Unavailable | + +------+ + Encounter Details +--------+ + + + + | Date | Type | Department | Care Team | Description | +--------+ + + + + | 06/12/ | Abstract | [place] [facility] | DATA [facility]IGRATION [facility]OPHY | | | 2011 | | Conversion Location | SR | | | | | [address] | | | | | | [place], [place] | | | | | | [address] | | | | | | [phone] | | | +--------+ + + + [...] + + + | Blood Pressure | 134/66 | 03/20/2012 12:00 AM | | | | | PDT [...] + + + + | Weight | 89.5 kg (197 lb 4.8 | 03/20/2012 12:00 AM | | | | oz) | PDT | | + + + + + | Height | 182.9 cm (6') | 12/17/2009 12:00 AM | | | | | PDT | | + + + + + | Body Mass Index | 26.76 | 12/17/2009 12:00 AM | | | | | PDT | | + + + + + documented in this encounter Plan of Treatment [...] [place] | | | | | | [place] [address] | | | | | | [phone] | | | | | | | | +--------+ + + + + | 07/23/ | Office | Pulmonology | Jt Roman | | | 2019 | Visit | | Tony Edwards MD [address] | | | | | [address] | | | | | | [place] [address] | | | | | | [phone] | | | | | | | | +--------+ + + + + documented as of this encounter Visit Diagnoses Not on filedocumented in this encounter"
--- OUTSIDE RECORDS SUMMARY | ~2020-04-30 | XMS | Encounter Summary ---
Demographics + + + | Address | [address] | | | [place] [address] | + + + | Home Phone | | + + + | Preferred Language | Unknown | + + + | Marital Status | | + + + | Jainism Affiliation | 1013 | + + + | Race | Unknown | + + + | Ethnic Group | Unknown | + + + Author + + + | Author | [facility] | | | and [place] | + + + | Organization | [facility] | | [...] Team Providers + +------+ + | Care Cutter First Name | Role | Phone | + [...] Description | +--------+--------+ + + + | 06/22/ | Refill | [facility] [place] | EttaTerrence | Medication Refill | | 2013 | | PULMONARY [address] | [place] [address] | | | | | [place], | [place], [place] | | | | | [place] [address] | [address] | | | | | [phone] | | | +--------+--------+ + + + [...] | | | | | | [place] [address] | | | | | | [phone] | | | | | | | | +--------+ + + + + | 07/23/ | Office | Pulmonology | Jt Roman | | | 2019 | Visit | | Tony Edwards MD [address] | | | | | | [address] | | | | | | [place] [address] | | | | | | [phone] | | | | | | | | +--------+ + + + + documented as of this encounter Visit Diagnoses Not on filedocumented in this encounter"
--- OUTSIDE RECORDS SUMMARY | ~2020-04-30 | XMS | Encounter Summary ---
Demographics + + + | Address | [address] | | | [place] [address] | + + + | Home Phone | | + + + | Preferred Language | Unknown | + + + | Marital Status | | + + + | Sabianist Affiliation | 1013 | + + + | Race | Unknown | + + + | Ethnic Group | Unknown | + + + Author + + + | Author | [facility] | | | and [place] | + + + | Organization | [facility] | | | [...] Team Providers + +------+ + | Care Call Worker Person Name | Role | Phone | + +------+ + PCP | Unavailable | + +------+ + Encounter Details +--------+ + + + + | Date | Type | Department | Care Team | Description | +--------+ + + + + | 05/23/ | Orders Only | [facility] | Radha Galaviz, | | | 2015 | | [facility] | RN | | | | | INFUSION [address] | | | | | | [place], | | | | | | [place] [address] | | | | | | [phone] | | | +--------+ + + + [...] [place] | | | | | | [place] [address] | | | | | | [phone] | | | | | | | | +--------+ + + + + | 07/23/ | Office | Pulmonology | Jt Roman | | | 2019 | Visit | | Tony Edwards MD [address] | | | | | [address] | | | | | | [place] [address] | | | | | | [phone] | | | | | | | | +--------+ + + + + documented as of this encounter Visit Diagnoses Not on filedocumented in this encounter"
--- OUTSIDE RECORDS SUMMARY | ~2020-04-30 | XMS | Encounter Summary ---
Demographics + + + | Address | [address] | | | [place] [address] | + + + | Home Phone | | + + + | Preferred Language | Unknown | + + + | Marital Status | | + + + | Moravian Affiliation | 1013 | + + + | Race | Unknown | + + + | Ethnic Group | Unknown | + + + Author + + + | Author | [facility] | | | and [place] | + + + | Organization | [facility] | | [...] Team Providers + +------+ + | Care Body Work Auto Trimmer Name | Role | Phone | + +------+ + | Meme Burgos MD | PCP | | + +------+ + Reason for Visit + +--------+ + | Reason | Onset | Comments | | | Date | | + +--------+ + | Shortness of Breath | 09/29/ | | | | 2019 | | + +--------+ + Encounter Details +--------+ + + + + | Date | Type | Department | Care Team | Description | +--------+ + + + + | 09/29/ | Telephone | [facility] | Man, | Shortness of Breath | | 2019 | | PULMONOLOGY [address] | [address], | | | | | [address] | [address] | | | | | [place] | [place], | | | | | [address] | [place] [address] | | | | | [phone] | [phone] | | | | | | | [...] this encounter Miscellaneous Notes Telephone Encounter - Michael Andre Home School Coordinator - 09/29/2019 1:20 PM PSTCalled Jaycee and stated per Dr. Conway "Looks like she is having an acute exacerbation. I will s end prednisone and course of Doxi. Pls have her go to urgent care if not better in the next 3 days. Have her use her rescue nebulizer or inhaler regularly while sick". Jaycee stated th at she understood. Electronically signed by Mari Pressley Assistant at 9 1:21 PM PSTTelephone Encounter - Joanna Dooley - 09/29/2019 12:50 PM PSTPabertha , is returning call for Shortness of Breath and would like a call back. Additional Call Details: Requesting call back from medical van driver elephone Encoun ter - aMn, Jaclyn Virgen MD - 09/29/2019 11:04 AM PSTLooks like she is having an a cute exacerbation. I will send prednisone and course of Doxi. Pls have her go to urgent care if not better in the next 3 days. Have her use her rescue nebulizer or inhaler regularly while sick. Jaclyn Conway MD Pulmonary and Critical Care Medicine [facility]/[address] , [place] [address] elephone Encounter - Michael Andre Home School Coordinator - 09/29/2019 8:28 AM PSTPamelkarina, (patient and spouse) is calling regarding Shortness of Breath and would like a call back. Additional Call Details: Jaycee called and stated that the patient is SOB, wheezing, and c oughing up phlegm. Patient is taking 10mg of prednisone for 3 days but is running out. Adwoa pak is on 2 liters with a saturation of 95% oxygen. Jaycee stated that doxycyline and predni sone helped last time. Patient is using all his inhalers. Are you having any cough? yes SOB? yes Wheezing? yes Fevers? no Coughing anything up? yes If phlegm present, what color is it? Doesn't know the color Are you using any inhalers or nebulizers? yes How long have you had this for? 4 days What medications have you taken for this? Prednisone Have you received any treatment from anyone else? no What pharmacy do you use? [facility] If this is a symptom based call, was patient offered triage? Patient refused triage If this is a symptom based call and you were unable to immediately transfer the call to a saba ignacio marshmallow machine worker was caller made aware that if at any time he feels it is an emergency they nemo uld call 911 or go to the nearest emergency room? not applicable Edvin mented in this encounter Plan of Treatment +--------+ [...] [address] | | | | | | [place] [address] | | | | | | [phone] | | | | | | | | +--------+ + + + + | 07/23/ | Office | Pulmonology | Abel Leslymarysol | | | 2019 | Visit | | Tony Edwards MD [address] | | | | [address] | | | | | | [place] [address] | | | | | | [phone] | | | | | | | | +--------+ + + + + documented as of this encounter Visit Diagnoses + + | Diagnosis | + + | Centrilobular emphysema (HCC) - Primary | + + documented in this encounter
--- OUTSIDE RECORDS SUMMARY | ~2020-04-30 | XMS | Encounter Summary ---
Demographics + + + | Address | [address] | | | [place] [address] | + + + | Home Phone | | + + + | Preferred Language | Unknown | + + + | Marital Status | | + + + | Muslim Affiliation | 1013 | + + + | Race | Unknown | + + + | Ethnic Group | Unknown | + + + Author + + + | Author | [facility] | | | and [place] | + + + | Organization | [facility] | | | [...] Team Providers + +------+ + | Care Stock Unloader Name | Role | Phone | + +------+ + PCP | Unavailable | + +------+ + Encounter Details +--------+ + + + + | Date | Type | Department | Care Team | Description | +--------+ + + + + | 02/06/ | Orders Only | [facility] [place] | Juan Paris | Membranous | | 2013 | | NEPHROLOGY [address] | M, DO [address] | glomerulonephritis | | | | [address] | [address] [place] | (Primary Dx) | | | | [place] | [place] [address] | | | | | [address] | [phone] | | | | | [phone] | | | +--------+ + + + [...] encounter Progress Notes Naida Forman RN - 02/06/2013 3:45 PM PDTLabs for nephrology appt on 03/19/13 sent to Kaylie manzo documented kaylie denis this encounter Plan of Treatment +--------+ + + + + | Date | Type | Specialty | Care Team | Description | +--------+ + + + + | 05/24/ | Off-Site | Nephrology | Juan Paris | | | 2019 | Visit | | DO [address] | | | | | | [address] [place] | | | | | | [place] [address] | | | | | | [phone] | | | | | | | | +--------+ + + + + | 07/23/ | Office | Pulmonology | Jt Roman | | | 2019 | Visit | | Tony Edwards MD [address] | | | | [address] | | | | | | [place] [address] | | | | | | [phone] | | | | | | | | +--------+ + + + + + +------+--------+ + + | Name | Type | Priori | Associated Diagnoses | Order Schedule | | | | ty | | | + +------+--------+ + + | Comprehensive | Lab | Routin | Membranous | Expected: 03/12/2013 | | Metabolic Panel | | e | glomerulonephritis | (Approximate), | | | | | | Expires: 02/06/2014 | + +------+--------+ + + | CBC with | Lab | Routin | Membranous | Expected: 03/12/2013 | | Differential | | e | glomerulonephritis | (Approximate), | | | | | | Expires: 02/06/2014 | + +------+--------+ + + | Phosphorus | Lab | Routin | Membranous | Expected: 03/12/2013 | | | | e | glomerulonephritis | (Approximate), | | | | | | Expires: 02/06/2014 | + +------+--------+ + + | Lipid Profile | Lab | Routin | Membranous | Expected: 03/12/2013 | | | | e | glomerulonephritis | (Approximate), | | | | | | Expires: 02/06/2014 | + +------+--------+ + + | Protein, Urine, 24Hr | Lab | Routin | Membranous | Expected: 03/12/2013 | | | | e | glomerulonephritis | (Approximate), | | | | | | Expires: 02/06/2014 | + +------+--------+ + + | Creatinine | Lab | Routin | Membranous | Expected: 03/12/2013 | | Clearance, Result | | e | glomerulonephritis | (Approximate), | | | | | | Expires: 02/06/2014 | + +------+--------+ + + documented as of this encounter Visit Diagnoses + + | Diagnosis | + + | 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
--- OUTSIDE RECORDS SUMMARY | ~2020-04-30 | XMS | Encounter Summary ---
Demographics + + + | Address | [address] | | | [place] [address] | + + + | Home Phone | | + + + | Preferred Language | Unknown | + + + | Marital Status | | + + + | Sikhism Affiliation | 1013 | + + + | Race | Unknown | + + + | Ethnic Group | Unknown | + + + Author + + + | Author | [facility] | | | and [place] | + + + | Organization | [facility] | | [...] Providers + +------+ + | Care Body Shop Technician Name | Role | Phone | [...] Description | +--------+--------+ + + + | 01/28/ | Refill | [facility] | Jt Roman | Medication Refill | | 2020 | | PULMONOLOGY [address] | Tony Edwards MD [address] | | | | | [address] | [address] | | | | | [place], [place] | [place] [address] | | | | | [address] | [phone] | | | | | [phone] | | | +--------+--------+ + + + [...] | 05/24/ | Off-Site | Nephrology | uJan Paris | | | 2019 | Visit | | DO Graeme Nielson | | | | | | [address] [place] | | | | | | [place] [address] | | | | | | [phone] | | | | | | | | +--------+ + + + + | 07/23/ | Office | Pulmonology | Jt Roman | | | 2019 | Visit | | Tony Edwards MD [address] | | | | | | [address] | | | | | | [place] [address] | | | | | | [phone] | | | | | | | | +--------+ + + + + documented as of this encounter Visit Diagnoses + + | Diagnosis | + + | COPD, severe (HCC) Chronic airway obstruction, not elsewhere classified | + + documented in this encounter"
--- OUTSIDE RECORDS SUMMARY | ~2020-04-30 | XMS | Encounter Summary ---
Demographics + + + | Address | [address] | | | [place] [address] | + + + | Home Phone | | + + + | Preferred Language | Unknown | + + + | Marital Status | | + + + | Synagogue Affiliation | 1013 | + + + [...] Team Providers + +------+ + | Care Sack Filler Name | Role | Phone | + +------+ + PCP | Unavailable | + +------+ + Encounter Details +--------+ + + + + | Date | Type | Department | Care Team | Description | +--------+ + + + + | 11/16/ | Abstract | [facility] | Juan Paris | | | 2017 | | NEPHROLOGY [address] | M, DO [address] | | | | | [address] | [address] [place] | | | | | [place] | [place] [address] | | | | | [address] | [phone] | | | | | [phone] | | | +--------+ + + + [...] this encounter Progress Notes Fawn Oquendo - 11/16/2016 9:13 AM PSTOutside record: Progress note from Heron Garcia MD, dos: 11-13-16. Sent to scan. 9:1 4 AM PSTdocumented in this encounter Plan of [...] | | | | | | [place] [address] | | | | | | [phone] | | | | | | | | +--------+ + + + + | 07/23/ | Office | Pulmonology | Jt Roman | | | 2019 | Visit | | Tony Edwards MD [address] | | | | | | [address] | | | | | | [place] [address] | | | | | | [phone] | | | | | | | | +--------+ + + + + documented as of this encounter Visit Diagnoses Not on filedocumented in this encounter"
--- OUTSIDE RECORDS SUMMARY | ~2020-04-30 | XMS | Encounter Summary ---
Demographics + + + | Address | [address] | | | [place] [address] | + + + | Home Phone | | + + + | Preferred Language | Unknown | + + + | Marital Status | | + + + | Adventist Affiliation | 1013 | + + + | Race | Unknown | + + + | Ethnic Group | Unknown | + + + Author + + + | Author | [facility] | | | and [place] | + + + | Organization | [facility] | | | [...] Team Providers + +------+ + | Care Epic Analyst Name | Role | Phone | + +------+ + PCP | Unavailable | + +------+ + Reason for Visit +--------+--------+ + | Reason | Onset | Comments | | | Date | | +--------+--------+ + | Other | 09/26/ | Authorization for infusion services | | | 2016 | | +--------+--------+ + Encounter Details +--------+ + + + + | Date | Type | Department | Care Team | Description | +--------+ + + + + | 09/26/ | Telephone | [facility] | Juan Paris | Other (Authorization | | 2015 | | NEPHROLOGY [address] | M, DO [address] | for infusion | | | | [address] | [address] [place] | services) | | | | [place] | [place] [address] | | | | | [address] | [phone] | | | | | [phone] | | | +--------+ + + + [...] Notes Telephone Encounter - Fawn Oquendo - 09/26/2016 8:32 AM Leeann's , Kortney is calling to see if the authorization for infusions has been accepted. She would like a call back at : [phone]. Floyd cardoso in this encounter Plan of Treatment +--------+ [...] | | | | | [place] [address] | | | | | | [phone] | | | | | | | | +--------+ + + + + | 07/23/ | Office | Pulmonology | Jt Roman | | | 2020 | Visit | | Tony Edwards MD [address] | | | | | | [address] | | | | | | [place] [address] | | | | | | [phone] | | | | | | | | +--------+ + + + + documented as of this encounter Visit Diagnoses Not on filedocumented in this encounter"
--- OUTSIDE RECORDS SUMMARY | ~2020-04-30 | XMS | Encounter Summary ---
Demographics + + + | Address | [address] | | | [place] [address] | + + + | Home Phone [...] Team Providers + +------+ + | Care Hydraulic Repairer Name | Role | Phone | + +------+ + PCP | Unavailable | + +------+ + Reason for Visit + +--------+ + | Reason | Onset | Comments | | | Date | | + +--------+ + | Medication Refill | 08/06/ | | | | 2011 | | + +--------+ + Encounter Details +--------+--------+ + + + | Date | Type | Department | Care Team | Description | +--------+--------+ + + + | 08/06/ | Refill | [facility] | Juan Paris | Medication Refill | | 2011 | | NEPHROLOGY [address] | M, DO [address] | | | | | [address] | [address] [place] | | | | | [place], [place] | [place] [address] | | | | | [address] | [phone] | | | | | [phone] | | | +--------+--------+ + + + [...] | | | | [address] | | | | | | [place] [address] | | | | | | [phone] | | | | | | | | +--------+ + + + + | 07/23/ | Office | Pulmonology | Jt Roman | | 2019 | Visit | | Tony Edwards MD [address] | | | | | | [address] | | | | | | [place] [address] | | | | | | [phone] | | | | | | | | +--------+ + + + + documented as of this encounter Visit Diagnoses Not on filedocumented in this encounter"
--- OUTSIDE RECORDS SUMMARY | ~2020-04-30 | XMS | Encounter Summary ---
Demographics + + + | Address | [address] | | | [place] [address] | + + + | Home Phone [...] Team Providers + +------+ + | Care Management Retail Intern Name | Role | Phone | + +------+ + PCP | Unavailable | + +------+ + Reason for Visit +--------+ + | Reason | Comments | +--------+ + | Asthma | f/u | +--------+ + Encounter Details +--------+---------+ + + + | Date | Type | Department | Care Team | Description | +--------+---------+ + + + | 02/15/ | Office | [facility] | Terrence Quiles | BRONCHITIS, | | 2014 | Visit | PULMONARY [address] | MD Nestor MARY KAY | OBSTRUCTIVE CHRONIC | | | | [place], | [facility] [place] | (Primary Dx); SLEEP | | | | [place] [address] | [address] | RELATED | | | | [phone] | | HYPOVENTILATION/HYPO | | | | [...] + + + | Blood Pressure | 130/72 | 02/15/2015 9:20 AM | | | | | PDT | | + + + + + | Pulse | 66 | 02/15/2015 9:20 AM | | | | | PDT | | + + + + + | Temperature | - | - | | + + + + + | Respiratory Rate | 14 | 02/15/2015 9:20 AM | | | | | PDT | | + + + + + | Oxygen Saturation | 97% | 02/15/2015 9:20 AM | room air | | | | PDT | | + + + + + | Inhaled Oxygen | - | - | | | Concentration | | | | + + + + + | Weight | 87.5 kg (192 lb 12.8 | 02/15/2015 9:20 AM | | | | oz) | PDT | | + + + + + | Height | 179.7 cm (5' 10.75") | 02/15/2015 9:20 AM | | | | | PDT | | + + + + + | Body Mass Index | 27.08 | 02/15/2015 9:20 AM | | | | | PDT | | + + + + + documented in this encounter Patient Instructions Patient Instructions Terrence Quiles MD - 02/15/2015 9:40 AM PDTFor your new Anoro i nhaler: 1. Only use Anoro once daily 2. Do not use Foradil when you use Anoro; They have the same type medicine 3. Do still take your Asmanex (pink inhaler), two puffs daily - you still need this Please wear your oxygen when you sleep, as much as you can. It would be best if you smoked as little as possible - or none! Since you are on Chantix n ow, it is a good time to quit! documented in this encounter Progress Notes Terrence Quiles MD - 02/15/2015 9:52 AM PDTFormatting of this note might be differen t from the original. Terrence Quiles MD [facility] [address] [place] [address] 02/15/2015 Sierra Mary Kay Roman 1950 History Sierra Roman is a 64 y.o. male followed for chronic obstructive pulmonary disease. He wa s seen initially in 2007 when he had ongoing tobacco use as well as significant occupational toxin inhalant exposures. 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 He has done relatively well recently. He recalls that he did have one episode of a viral t ype bronchitis this past winter and was treated with a short course of prednisone. He recently tried a new inhaler, the Anoro Ellipta, and he feels his breathing is better th an it has felt in years. He feels that new inhaler has made a huge difference. However, he has only had samples of Anoro and he is making some errors using the new inhaler. He is us ing Anoro twice daily instead of once daily as it should be used. He stopped both his Foradi l and Asmanex when he began Anoro. He is not sure that he can continue Anoro because of co st. [facility] We discussed that he had tried S piriva previously, but did not tolerate it due to urinary retention. He has been having more problems with urinary retention and did see Dr. Chester, but these p roblems preceded his trial of Anoro. He had tried one drug for BPH which did not help and m ore recently he has been taking Avodart. Unfortunately, he is still smoking about 5 cigarettes per day. However, he did start Chant ix about 1 month ago, and is more motivated to try to quit. He has been sleeping with oxygen less often recently, probably about one out of three night s. He is willing to try to use it more. His notes a chronic cough and asked whether i t could be due to his lisinopril, although he thinks the cough is due to other things. He had a left inguinal hernia repair earlier this year. Pertinent Prior Medical History Mr. Roman smoked [...] was taking significant prednisone at that time becau se of a diagnosis of membranous glomerulonephritis that [...] that. Fortunately, his renal disease has not recurred, ty costello at his last visit with Dr. Paris in May 2014, he did have some increase in prote inuria. 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 omeprazole (PRILOSEC) 20 mg capsule Take one capsule by mouth once daily on an empty st omach simvastatin (ZOCOR) 20 mg tablet Take 1 tablet by mouth Daily. 90 tablet 4 umeclidinium-vilanterol (ANORO ELLIPTA) 62.5-25 mcg/puff inhaler Inhale 1 puff into the lungs Daily. zolpidem (AMBIEN) 10 mg tablet Take 1 tablet by mouth nightly as needed for Sleep. 30 t ablet 4 No current facility-administered medications for this visit. Allergies Allergen Reactions Amoxicillin Past Medical History was reviewed and updated in the electronic record. Review of Systems He is really feeling better and able to do things he could not previously do. He does have a mild chronic cough Physical Examination: BP 130/72 | Pulse 66 | Resp 14 | Ht 1.797 m (5' 10.75") | Wt 87.454 kg (192 lb 12.8 oz) | B MD 27.08 kg/m2 | SpO2 97% General: Pleasant, middle-aged man in no distress. No obvious odor of tobacco. Periodic co ugh. HEENT: Pharyngeal airway is mildly below average sized. No thrush. Upper and lower dentures in place. Neck: Mildly increased circumference. Lungs: Mild hyperresonance to percussion. Breath sounds mildly diminished throughout the ch est. No wheezes, crackles, rhonchi. Expiratory phase normal. Heart: Regular rate and rhythm. Extremities: No clubbing, cyanosis, or edema. I also reviewed an outside chest x-ray obtained at [facility] on the patient on February 02, 2014. The films showed hyperinflation consistent with COPD and no acute a bnormalities. Heart size is lower range of normal. Assessment: 1. BRONCHITIS, OBSTRUCTIVE CHRONIC He notes dramatic improvement with Anoro. We reviewed that medicine and I advised him to r educe to once daily and not take Foradil ever on the same day. He should continue Asmanex b ecause Anoro does not have a steroid. If he cannot afford Anoro or cannot obtain it, he cou ld return to Foradil and we could try Spiriva again or Tudorza, especially because he is now on medication for BPH. 2. SLEEP RELATED HYPOVENTILATION/HYPOXEMIA CCE It is suspected that he might have mild sleep apnea but he is not interested in having this evaluated. He was encouraged to continue with nocturnal oxygen. 3. TOBACCO ABUSE, HX OF 4. Nicotine addiction Unfortunately he continues to smoke Tobacco, with use now up to 4-6 cigarettes per day. I showed him some data about the effects of this on his longevity. He has grandchildren and w ill take this information into consideration. I urged him to try to quit smoking tobacco. Ainsley diamond began Chantix one month ago, so I urged him to use the benefit of the medication and quit. 5. GASTROESOPHAGEAL REFLUX DISEASE, HX OF Symptoms are controlled with omeprazole but he needs to continue using it, as he is symptom atic if he does not take the medication PLAN: Smoking cessation was discussed, especially because he is using Chantix. Contniue Anoro Ellipta if he is able to afford it, but only one dose daily. Do not use Foradil while using Anoro. Continue Asmanex 220 mcg 2 puffs daily. If he cannot continue Anoro, then he should resume formoterol one capsule inhaled twice a d ay. We could also consider supplementing with an anticholinergic inhaler such as Spiriva or Tudorza, given his response to Anoro. Continue nocturnal oxygen as much as he can, and I asked him to try wearing it at least carlotta ry other night.. Flu vaccine recommended each fall. Continue omeprazole 20 mg daily. Good hygiene to avoid infections. Followup in one year earlier if problems. I spent 25 minutes face to face with the patient, greater than 50 % of the total time was s pent in counseling and coordination of care. Terrence Quiles Cc: Dr. [facility] Portions of this documentation were transcribed using voice recognition software. Every eff ort has been made to ensure accuracy; however, unintended grammatical and/or spelling errors may be present due to inadvertent computerized global sales executive errors. If there are any ques tions regarding the global sales executive, please contact our office. documented in th is encounter Plan of Treatment +--------+ + + + + | Date | Type | Specialty | Care Team | Description | +--------+ + + + + | 05/24/ | Off-Site | Nephrology | Juan Paris | | | 2020 | Visit | | [facility] [address] | | | | | | [facility] [address] [facility] | | | | | | [place] [address] | | | | | | [phone] | | | | | | | | +--------+ + + + + | 07/23/ | Office | Pulmonology | Jt Roman | | | 2019 | Visit | | Tony Edwards MD [address] | | | | | | [address] | | | | | | [place] [address] | | | | | | [phone] | | | | | | | [...]
--- OUTSIDE RECORDS SUMMARY | ~2020-04-30 | XMS | Encounter Summary ---
Demographics + + + | Address | [address] | | | [place] [address] | + + + | Home Phone [...] Team Providers + +------+ + | Care Legal Mediator Name | Role | Phone | + +------+ + PCP | Unavailable | + +------+ + Encounter Details +--------+ + + + + | Date | Type | Department | Care Team | Description | +--------+ + + + + | 10/09/ | Abstract | [facility] | Amanda Gaspar CMA | | | 2016 | | NEPHROLOGY [address] | | | | | | [address] | | | | | | [place] | | | | | | [address] | | | | | | [phone] | | | +--------+ + + + [...] | | | | | [place] [address] | | | | | | [phone] | | | | | | | | +--------+ + + + + | 07/23/ | Office | Pulmonology | Jt Roman | | | 2019 | Visit | | Tony Edwards MD [address] | | | | | | [address] | | | | | | [place] [address] | | | | | | [phone] | | | | | | | | +--------+ + + + + documented as of this encounter Visit Diagnoses Not on filedocumented in this encounter"
--- OUTSIDE RECORDS SUMMARY | ~2020-04-30 | XMS | Encounter Summary ---
Demographics + + + | Address | [address] | | | [place] [address] | + + + | Home Phone | | + + + | Preferred Language | Unknown | + + + | Marital Status | | + + + | Nondenominational Affiliation | 1013 | + + + | Race | Unknown | + + + | Ethnic Group | Unknown | + + + Author + + + | Author | [facility] | | | and [place] | + + + | Organization | [facility] | | | [...] Team Providers + +------+ + | Care Show Host Name | Role | Phone | + [...] | | [place] | [place] [address] | | | | | [address] | [phone] | | | | | [phone] | | | +--------+ + + + [...] [address] | | | | | | [place] [address] | | | | | | [phone] | | | | | | | | +--------+ + + + + | 07/23/ | Office | Pulmonology | Jt Roman | | | 2019 | Visit | | Tony Edwards MD [address] | | | | | | [address] | | | | | | [place] [address] | | | | | | [phone] | | | | | | | | +--------+ + + + + documented as of this encounter Procedures + +--------+ + + + | Procedure Name | Priori | Date/Time | Associated Diagnosis | Comments | | | ty | | | | + +--------+ + + + | EXTERNAL LAB: BUN | Routin | 03/17/2016 | | Results for this | | | e | | | procedure are in the | | | | | | results section. | + +--------+ + + + | EXTERNAL LAB: | Routin | 03/17/2016 | | Results for this | | GLUCOSE | e | | | procedure are in the | | | | | | results section. | + +--------+ + + + | EXTERNAL LAB: | Routin | 03/17/2016 | | Results for this | | ALBUMIN | e | | | procedure are in the | | | | | | results section. | + +--------+ + + + | EXTERNAL LAB: | Routin | 03/17/2016 | | Results for this | | PROTEIN, TOTAL | e | | | procedure are in the | | | | | | results section. | + +--------+ + + + | EXTERNAL LAB: | Routin | 03/17/2016 | | Results for this | | PHOSPHORUS | e | | | procedure are in the | | | | | | results section. | + +--------+ + + + | EXTERNAL LAB: | Routin | 03/17/2016 | | Results for this | | CALCIUM | e | | | procedure are in the | | | | | | results section. | + +--------+ + + + | EXTERNAL LAB: CARBON | Routin | 03/17/2016 | | Results for this | | DIOXIDE | e | | | procedure are in the | | | | | | results section. | + +--------+ + + + | EXTERNAL LAB: | Routin | 03/17/2016 | | Results for this | | CHLORIDE | e | | | procedure are in the | | | | | | results section. | + +--------+ + + + | EXTERNAL LAB: | Routin | 03/17/2016 | | Results for this | | POTASSIUM | e | | | procedure are in the | | | | | | results section. | + +--------+ + + + | EXTERNAL LAB: SODIUM | Routin | 03/17/2016 | | Results for this | | | e | | | procedure are in the | | | | | | results section. | + +--------+ + + + | EXTERNAL LAB: | Routin | 03/17/2016 | | Results for this | | PROTEIN, URINE, 24HR | e | | | procedure are in the | | | | | | results section. | + +--------+ + + + | EXTERNAL LAB: EGFR | Routin | 03/17/2016 | | Results for this | | | e | | | procedure are in the | | | | | | results section. | + +--------+ + + + | EXTERNAL LAB: | Routin | 03/17/2016 | | Results for this | | CREATININE | e | | | procedure are in the | | | | | | results section. | + +--------+ + + + documented in this encounter Results External Lab: Protein, Urine, 24Hr (03/17/2016) + +-------+ + + + | Component | Value | Ref Range | Performed | Pathologist | | | | | At | Signature | + +-------+ + + + | Protein, | 5,369 | | EXTERNAL | | | Urine [...] + +---------+ + + External Lab: BRENDA (03/17/2016) + +-------+ + + + | Component [...] + +---------+ + + External Lab: Glucose (03/17/2016) + +---------+ + + + | Component | Value | Ref Range | Performed | Pathologist | | | | | At | Signature | + +---------+ + + + | Glucose, | 156 (A) | 70 - 100 | EXTERNAL [...] + +---------+ + + External Lab: Albumin (03/17/2016) + +-------+ + + + | Component | Value | Ref Range | Performed | Pathologist | | | | | At | Signature | + +-------+ + + + | Albumin, | 3.4 | | EXTERNAL | | | External [...] +---------+ + + External Lab: Protein, Total (03/17/2016) + +---------+ + + + | Component | Value | Ref Range | Performed | Pathologist | | | | | At | Signature | + +---------+ + + + | Protein, | 5.4 (A) | 6 - 8 | EXTERNAL [...] + +---------+ + + External Lab: Phosphorus (03/17/2016) + +-------+ + + + | Component | Value | Ref Range | Performed | Pathologist | | | | | At | Signature | + +-------+ + + + | Phosphorus, | 4.5 | 2.5 - 5 | EXTERNAL | [...] + +---------+ + + External Lab: Calcium (03/17/2016) + +-------+ + + + | Component | Value | Ref Range | Performed | Pathologist | | | | | At | Signature | + +-------+ + + + | Calcium, | 9.4 | 8.4 - 10.2 | EXTERNAL | [...] +---------+ + + External Lab: Carbon Dioxide (03/17/2016) + +-------+ + + + | Component | Value | Ref Range | Performed | Pathologist | | | | | At | Signature | + +-------+ + + + | Carbon | 30 | 19 - 31 | EXTERNAL | [...] + +---------+ + + External Lab: Chloride (03/17/2016) + +-------+ + + + | Component | Value | Ref Range | Performed | Pathologist | | | | | At | Signature | + +-------+ + + + | Chloride, | 102 | 95 - 112 | EXTERNAL | [...] + +---------+ + + External Lab: Potassium (03/17/2016) + +-------+ + + + | Component | Value | Ref Range | Performed | Pathologist | | | | | At | Signature | + +-------+ + + + | Potassium, | 4.1 | 3.6 - 5.1 | EXTERNAL | [...] + +---------+ + + External Lab: Sodium (03/17/2016) + +-------+ + + + | Component | Value | Ref Range | Performed | Pathologist | | | | | At | Signature | + +-------+ + + + | Sodium, | 138 | 132 - 143 | EXTERNAL | [...] + +---------+ + + External Lab: eGFR (03/17/2016) + +-------+ + + + | Component | Value | Ref Range | Performed | Pathologist | | | | | At | Signature | + +-------+ + + + | eGFR, | 76 | | EXTERNAL | | | External [...] + +---------+ + + External Lab: Creatinine (03/17/2016) + +-------+ + + + | Component | Value | Ref Range | Performed | Pathologist | | | | | At | Signature | + +-------+ + + + | Creatinine, | 0.99 | 0.7 - 1.25 | EXTERNAL | [...]
--- OUTSIDE RECORDS SUMMARY | ~2020-04-30 | XMS | Encounter Summary ---
Demographics + + + | Address | [address] | | | [place] [address] | + + + | Home Phone | | + + + | Preferred Language | Unknown | + + + | Marital Status | | + + + | Mormonism Affiliation | 1013 | + + + | Race | Unknown | + + + | Ethnic Group | Unknown | + + + Author + + + | Author | [facility] | | | and [place] | + + + | Organization | [facility] | | [...] Team Providers + +------+ + | Care Fusion Juncture Grinder Name | Role | Phone | + +------+ + | Meme Burgos MD | PCP | | + +------+ + Reason for Visit +--------+--------+ + | Reason | Onset | Comments | | | Date | | +--------+--------+ + | Other | 09/30/ | | | | 2019 | | +--------+--------+ + Encounter Details +--------+ + + + + | Date | Type | Department | Care Team | Description | +--------+ + + + + | 09/30/ | Telephone | [facility] | Jt Roman | Other | | 2019 | | PULMONOLOGY [address] | Tony Edwards MD [address] | | | | | [address] | [address] | | | | | [place], [place] | [place] [address] | | | | | [address] | [phone] | | | | | [phone] | | | +--------+ + + + [...] this encounter Miscellaneous Notes Telephone Encounter - MiahJoanna - 09/30/2019 4:19 PM PSTLakisha, is calling re garding Other and would like a call back. Additional Call Details: Caller stated patient was referred to them and they did not recei omer patient demographics page. She stated it needs faxed to [phone] If this is a symptom based call, was patient offered triage? Not Applicable If this is a symptom based call and you were unable to immediately transfer the call to a saba ignacio draw frame operator was caller made aware that if at any time he feels it is an emergency they nemo uld call 911 or go to the nearest emergency room? not applicable documented in this encounter Plan of Treatment +--------+ + + + + | Date | Type | Specialty | Care Team | Description | +--------+ + + + + | 05/24/ | Off-Site | Nephrology | Juan Paris | | | 2019 | Visit | | M, DO [address] | | | | | | [address] | | | | | | [place] [address] | | | | | | [phone] | | | | | | | | +--------+ + + + + | 07/23/ | Office | Pulmonology | Jt Roman | | | 2019 | Visit | | Tony Edwards MD [address] | | | | | | [address] | | | | | | [place] [address] | | | | | | [phone] | | | | | | | | +--------+ + + + + documented as of this encounter Visit Diagnoses Not on filedocumented in this encounter"
--- OUTSIDE RECORDS SUMMARY | ~2020-04-30 | XMS | Encounter Summary ---
Demographics + + + | Address | [address] | | | [place] [address] | + + + | Home Phone | | + + + | Preferred Language | Unknown | + + + | Marital Status | | + + + | Oriental Orthodox Affiliation | 1013 | + + + [...] Team Providers + +------+ + | Care Property Maintenance Technician Name | Role | Phone | + +------+ + PCP | Unavailable | + +------+ + Encounter Details +--------+ + + + + | Date | Type | Department | Care Team | Description | +--------+ + + + + | 01/02/ | Abstract | [facility] | [facility] | | | 2015 | | NEPHROLOGY [address] | M, DO [address] | | | | | [address] | [address] | | | | | [place] | [place] [address] | | | | | [address] | [phone] | | | | | [phone] | | | +--------+ + + + [...] PB | | | | | | [place] [address] | | | | | | [phone] | | | | | | | | +--------+ + + + + | 07/23/ | Office | Pulmonology | Jt Roman | | | 2019 | Visit | | Tony Edwards MD [address] | | | | | [address] | | | | | | [place] [address] | | | | | | [phone] | | | | | | | | +--------+ + + + + documented as of this encounter Procedures + +--------+ + + + | Procedure Name | Priori | Date/Time | Associated Diagnosis | Comments | | | ty | | | | + +--------+ + + + | EXTERNAL LAB: BRENDA | Routin | 01/03/2016 | | Results for this | | | e | | | procedure are in the | | | | | | results section. | + +--------+ + + + | EXTERNAL LAB: | Routin | 01/03/2016 | | Results for this | | GLUCOSE | e | | | procedure are in the | | | | | | results section. | + +--------+ + + + | EXTERNAL LAB: TIM | Routin | 01/03/2016 | | Results for this | | | e | | | procedure are in the | | | | | | results section. | + +--------+ + + + | EXTERNAL LAB: AST | Routin | 01/03/2016 | | Results for this | | | e | | | procedure are in the | | | | | | results section. | + +--------+ + + + | EXTERNAL LAB: | Routin | 01/03/2016 | | Results for this | | ALKALINE PHOSPHATASE | e | | | procedure are in the | | | | | | results section. | + +--------+ + + + | EXTERNAL LAB: | Routin | 01/03/2016 | | Results for this | | BILIRUBIN, TOTAL | e | | | procedure are in the | | | | | | results section. | + +--------+ + + + | EXTERNAL LAB: | Routin | 01/03/2016 | | Results for this | | ALBUMIN | e | | | procedure are in the | | | | | | results section. | + +--------+ + + + | EXTERNAL LAB: | Routin | 01/03/2016 | | Results for this | | PROTEIN, TOTAL | e | | | procedure are in the | | | | | | results section. | + +--------+ + + + | EXTERNAL LAB: | Routin | 01/03/2016 | | Results for this | | CALCIUM | e | | | procedure are in the | | | | | | results section. | + +--------+ + + + | EXTERNAL LAB: CARBON | Routin | 01/03/2016 | | Results for this | | DIOXIDE | e | | | procedure are in the | | | | | | results section. | + +--------+ + + + | EXTERNAL LAB: | Routin | 01/03/2016 | | Results for this | | CHLORIDE | e | | | procedure are in the | | | | | | results section. | + +--------+ + + + | EXTERNAL LAB: | Routin | 01/03/2016 | | Results for this | | POTASSIUM | e | | | procedure are in the | | | | | | results section. | + +--------+ + + + | EXTERNAL LAB: SODIUM | Routin | 01/03/2016 | | Results for this | | | e | | | procedure are in the | | | | | | results section. | + +--------+ + + + | EXTERNAL LAB: CBC | Routin | 01/03/2016 | | Results for this | | | e | | | procedure are in the | | | | | | results section. | + +--------+ + + + | EXTERNAL LAB: EGFR | Routin | 01/03/2016 | | Results for this | | | e | | | procedure are in the | | | | | | results section. | + +--------+ + + + | EXTERNAL LAB: | Routin | 01/03/2016 | | Results for this | | CREATININE | e | | | procedure are in the | | | | | | results section. | + +--------+ + + + documented in this encounter Results External Lab: BUN (01/03/2016) + +-------+ + + + | Component [...] + +---------+ + + External Lab: Glucose (01/03/2016) + +---------+ + + + | Component | Value | Ref Range | Performed | Pathologist | | | | | At | Signature | + +---------+ + + + | Glucose, | 143 (A) | 71 - 100 | EXTERNAL | | | External | | | LAB | | + +---------+ + + + + +---------+ + + | Performing | Address | City/State/Zipcode | Phone Number | | Organization | | | | + +---------+ + + | EXTERNAL LAB | | | | + +---------+ + + External Lab: ALT (01/03/2016) + +-------+ + + + | Component | Value | Ref Range | Performed | Pathologist | | | | | At | Signature | + +-------+ + + + | ALT, | 14 | | EXTERNAL | | | External | | | LAB | | + +-------+ + + + + +---------+ + + | Performing | Address | City/State/Zipcode | Phone Number | | Organization | | | | + +---------+ + + | EXTERNAL LAB | | | | + +---------+ + + External Lab: AST (01/03/2016) + +-------+ + + + | Component | Value | Ref Range | Performed | Pathologist | | | | | At | Signature | + +-------+ + + + | AST, | 12 | | EXTERNAL | | | External | | | LAB | | + +-------+ + + + + +---------+ + + | Performing | Address | City/State/Zipcode | Phone Number | | Organization | | | | + +---------+ + + | EXTERNAL LAB | | | | + +---------+ + + External Lab: Alkaline Phosphatase (01/03/2016) + +-------+ + + + | Component | Value | Ref Range | Performed | Pathologist | | | | | At | Signature | + +-------+ + + + | ALP, | 70 | | EXTERNAL | | | External | | | LAB | | + +-------+ + + + + +---------+ + + | Performing | Address | City/State/Zipcode | Phone Number | | Organization | | | | + +---------+ + + | EXTERNAL LAB | | | | + +---------+ + + External Lab: Bilirubin, Total (01/03/2016) + +-------+ + + + | Component | Value | Ref Range | Performed | Pathologist | | | | | At | Signature | + +-------+ + + + | Bilirubin, | 0.7 | | EXTERNAL | | | Total, | | | LAB | | | External | | | | | + +-------+ + + + + +---------+ + + | Performing | Address | City/State/Zipcode | Phone Number | | Organization | | | | + +---------+ + + | EXTERNAL LAB | | | | + +---------+ + + External Lab: Albumin (01/03/2016) + +---------+ + + + | Component [...] +---------+ + + External Lab: Protein, Total (01/03/2016) + +---------+ + + + | Component [...] + +---------+ + + External Lab: Calcium (01/03/2016) + +-------+ + + + | Component | Value | Ref Range | Performed | Pathologist | | | | | At | Signature | + +-------+ + + + | Calcium, | 9.0 | 8.4 - 10.2 | EXTERNAL | | | External | | | LAB | | + +-------+ + + + + +---------+ + + | Performing | Address | City/State/Zipcode | Phone Number | | Organization | | | | + +---------+ + + | EXTERNAL LAB | | | | + +---------+ + + External Lab: Carbon Dioxide (01/03/2016) + +-------+ + + + | Component [...] + +---------+ + + External Lab: Chloride (01/03/2016) + +-------+ + + + | Component | Value | Ref Range | Performed | Pathologist | | | | | At | Signature | + +-------+ + + + | Chloride, | 104 | 100 - 110 | EXTERNAL | | | External | | | LAB | | + +-------+ + + + + +---------+ + + | Performing | Address | City/State/Zipcode | Phone Number | | Organization | | | | + +---------+ + + | EXTERNAL LAB | | | | + +---------+ + + External Lab: Potassium (01/03/2016) + +-------+ + + + | Component [...] + +---------+ + + External Lab: Sodium (01/03/2016) + +-------+ + + + | Component | Value | Ref Range | Performed | Pathologist | | | | | At | Signature | + +-------+ + + + | Sodium, | 139 | 135 - 145 | EXTERNAL | | | External | | | LAB | | + +-------+ + + + + +---------+ + + | Performing | Address | City/State/Zipcode | Phone Number | | Organization | | | | + +---------+ + + | EXTERNAL LAB | | | | + +---------+ + + External Lab: CBC (01/03/2016) + +-------+ + + + | Component | Value | Ref Range | Performed | Pathologist | | | | | At | Signature | + +-------+ + + + | WBC, | 10.6 | 4 - 11 | EXTERNAL | | | External | | | LAB | | + +-------+ + + + | HGB, | 14.5 | 12 - 16 | EXTERNAL | | | External | | | LAB | | + +-------+ + + + | HCT, | 44.2 | 35 - 45 | EXTERNAL | | | External | | | LAB | | + +-------+ + + + | PLT, | 239 | 140 - 440 | EXTERNAL | | | External | | | LAB | | + +-------+ + + + | RBC, | 4.82 | 4 - 6 | EXTERNAL | | | External | | | LAB | | + +-------+ + + + | MCV, | 92 | | EXTERNAL | | | External | | | LAB | | + +-------+ + + + | RDW, | 13 | | EXTERNAL | | | External | | | LAB | | + +-------+ + + + + +---------+ + + | Performing | Address | City/State/Zipcode | Phone Number | | Organization | | | | + +---------+ + + | EXTERNAL LAB | | | | + +---------+ + + External Lab: eGFR (01/03/2016) + +-------+ + + + | Component | Value | Ref Range | Performed | Pathologist | | | | | At | Signature | + +-------+ + + + | eGFR, | 79 | 60 | EXTERNAL | | | [...] + +---------+ + + External Lab: Creatinine (01/03/2016) + +-------+ + + + | Component | Value | Ref Range | Performed | Pathologist | | | | | At | Signature | + +-------+ + + + | Creatinine, | 0.95 | 0.6 - 1.3 | EXTERNAL | [...]
--- OUTSIDE RECORDS SUMMARY | ~2020-04-30 | XMS | Encounter Summary ---
Demographics + + + | Address | [address] | | | [place] [address] | + + + | Home Phone | | + + + | Preferred Language | Unknown | + + + | Marital Status | | + + + | Samaritan Affiliation | 1013 | + + + [...] Team Providers + +------+ + | Care Rackman Name | Role | Phone | + [...] | | [place] | [place] [address] | Proteinuria; | | | | [address] | [phone] | Abnormal bruising | | | | [phone] | | | +--------+ + + + [...] | | | | [address] [facility] | | | | | | [place] [address] | | | | | | [phone] | | | | | | | | +--------+ + + + + | 07/23/ | Office | Pulmonology | Jt Roman | | | 2019 | Visit | | Tony Edwards MD [address] | | | [address] | | | | | | [place] [address] | | | | | | [phone] | | | | | | | [...]
--- OUTSIDE RECORDS SUMMARY | ~2020-04-30 | XMS | Encounter Summary ---
Demographics + + + | Address | [address] | | | [place] [address] | + + + | Home Phone | | + + + | Preferred Language | Unknown | + + + | Marital Status | | + + + | Mandaen Affiliation | 1013 | + + + [...] Team Providers + +------+ + | Care Marketing Rotation Associate Name | Role | Phone | + +------+ + | Meme Burgos MD | PCP | | + +------+ + Reason for Visit + +--------+ + | Reason | Onset | Comments | | | Date | | + +--------+ + | Shortness of Breath | 03/22/ | | | | 2020 | | + +--------+ + Encounter Details +--------+ + + + + | Date | Type | Department | Care Team | Description | +--------+ + + + + | 03/22/ | Telephone | [facility] | Abel[facility]t samuel | Shortness of Breath | | 2019 | | PULMONOLOGY [address] | Tony Edwards MD [address] | | | | | [address] | [address] | | | | | [place], [place] | [place] [address] | | | | | [address] | [phone] | | | | | [phone] | | | +--------+ + + + [...] this encounter Miscellaneous Notes Telephone Encounter - Arturo Meadows, Appeals Reviewer Veteran - 03/22/2020 8:52 AM PDTPam called stating patient is swollen up all over and is short of breath. Asking if prednisone can be reduced to 5 mg. Started taking Lasix yesterday. Discussed with Dr. Roman and is okay with this. Kortney will call back if patient worsens. documented in this encounter Plan of Treatment [...] | | | | | [place] [address] | | | | | | [phone] | | | | | | | | +--------+ + + + + | 07/23/ | Office | Pulmonology | Jt Roman | | | 2020 | Visit | | Tony Edwards MD [address] | | | | | [address] | | | | | | [place] [address] | | | | | | [phone] | | | | | | | | +--------+ + + + + documented as of this encounter Visit Diagnoses Not on filedocumented in this encounter"
--- OUTSIDE RECORDS SUMMARY | ~2020-04-30 | XMS | Encounter Summary ---
Demographics + + + | Address | [address] | | | [place] [address] | + + + | Home Phone [...] + | Author | [facility] | | | and [place] | + + + | Organization | [facility] | | | and [...] Team Providers + +------+ + | Care Instant Printer Operator Name | Role | Phone | [...] | | [place] | [place] [address] | | | | | [address] | [phone] | | | | | [phone] | | | +--------+ + + + [...] PB | | | | | | [place] [address] | | | | | | [phone] | | | | | | | | +--------+ + + + + | 07/23/ | Office | Pulmonology | Jt Roman | | | 2019 | Visit | | Tony Edwards MD [address] | | | | | | [address] | | | | | | [place] [address] | | | | | | [phone] | | | | | | | | +--------+ + + + + documented as of this encounter Procedures + +--------+ + + + | Procedure Name | Priori | Date/Time | Associated Diagnosis | Comments | | | ty | | | | + +--------+ + + + | EXTERNAL LAB: BUN | Routin | 10/03/2016 | | Results for this | | | e | | | procedure are in the | | | | | | results section. | + +--------+ + + + | EXTERNAL LAB: | Routin | 10/03/2016 | | Results for this | | GLUCOSE | e | | | procedure are in the | | | | | | results section. | + +--------+ + + + | EXTERNAL LAB: TIM | Routin | 10/03/2016 | | Results for this | | | e | | | procedure are in the | | | | | | results section. | + +--------+ + + + | EXTERNAL LAB: KRIS | Routin | 10/03/2016 | | Results for this | | | e | | | procedure are in the | | | | | | results section. | + +--------+ + + + | EXTERNAL LAB: | Routin | 10/03/2016 | | Results for this | | ALKALINE PHOSPHATASE | e | | | procedure are in the | | | | | | results section. | + +--------+ + + + | EXTERNAL LAB: | Routin | 10/03/2016 | | Results for this | | BILIRUBIN, TOTAL | e | | | procedure are in the | | | | | | results section. | + +--------+ + + + | EXTERNAL LAB: | Routin | 10/03/2016 | | Results for this | | ALBUMIN | e | | | procedure are in the | | | | | | results section. | + +--------+ + + + | EXTERNAL LAB: | Routin | 10/03/2016 | | Results for this | | PROTEIN, TOTAL | e | | | procedure are in the | | | | | | results section. | + +--------+ + + + | EXTERNAL LAB: | Routin | 10/03/2016 | | Results for this | | CALCIUM | e | | | procedure are in the | | | | | | results section. | + +--------+ + + + | EXTERNAL LAB: CARBON | Routin | 10/03/2016 | | Results for this | | DIOXIDE | e | | | procedure are in the | | | | | | results section. | + +--------+ + + + | EXTERNAL LAB: | Routin | 10/03/2016 | | Results for this | | CHLORIDE | e | | | procedure are in the | | | | | | results section. | + +--------+ + + + | EXTERNAL LAB: | Routin | 10/03/2016 | | Results for this | | POTASSIUM | e | | | procedure are in the | | | | | | results section. | + +--------+ + + + | EXTERNAL LAB: SODIUM | Routin | 10/03/2016 | | Results for this | | | e | | | procedure are in the | | | | | | results section. | + +--------+ + + + | EXTERNAL LAB: CBC | Routin | 10/03/2016 | | Results for this | | | e | | | procedure are in the | | | | | | results section. | + +--------+ + + + | EXTERNAL LAB: EGFR | Routin | 10/03/2016 | | Results for this | | | e | | | procedure are in the | | | | | | results section. | + +--------+ + + + | EXTERNAL LAB: | Routin | 10/03/2016 | | Results for this | | CREATININE | e | | | procedure are in the | | | | | | results section. | + +--------+ + + + | CBC WITH | Routin | 10/03/2016 | | Results for this | | DIFFERENTIAL | e | | | procedure are in the | | | | | | results section. | + +--------+ + + + | COMPREHENSIVE | Routin | 10/03/2016 | | Results for this | | METABOLIC PANEL | e | | | procedure are in the | | | | | | results section. | + +--------+ + + + documented in this encounter Results CBC with Differential (10/03/2016) + +---------+ + + + | Component | Value | Ref Range | Performed | Pathologist | | | | | At | Signature | + +---------+ + + + | MCH | 31.0 | 26.0 - 33.0 pg | | | + +---------+ + + + | MCHC | 33.0 | 31.0 - 37.0 % | | | + +---------+ + + + | % Basophils | 1.2 (A) | 1.0 % | | | + +---------+ + + + + + | Specimen | + + | Blood specimen | | (specimen) | + + Comprehensive Metabolic Panel (10/03/2016) + +-------+ + + + | Component | Value | Ref Range | Performed | Pathologist | | | | | At | Signature | + +-------+ + + + | Anion Gap | 16 | 7 - 21 mmol/L | | | + +-------+ + + + | BUN/Creatin | 24.2 | 6.0 - 28.6 | | | | ine Ratio | | | | | + +-------+ + + + | Globulin | 2.1 | 1.8 - 3.5 | | | + +-------+ + + + | Albumin/Elly | 1.8 | 1.1 - 2.4 | | | | bulin Ratio | | | | | + +-------+ + + + + + | Specimen | + + | Blood specimen | | (specimen) | + + External Lab: BUN (10/03/2016) + +-------+ + + + | Component | Value | Ref Range | Performed | Pathologist | | | | | At | Signature | + +-------+ + + + | BUN, | 23 | 6 - 23 | | | | External | | | | | + +-------+ + + + External Lab: Glucose (10/03/2016) + +---------+ + + + | Component | Value | Ref Range | Performed | Pathologist | | | | | At | Signature | + +---------+ + + + | Glucose, | 158 (A) | 70 - 100 | | | | External | | | | | + +---------+ + + + External Lab: ALT (10/03/2016) + +-------+ + + + | Component | Value | Ref Range | Performed | Pathologist | | | | | At | Signature | + +-------+ + + + | ALT, | 17 | 7 - 52 | | | | External | | | | | + +-------+ + + + External Lab: AST (10/03/2016) + +-------+ + + + | Component | Value | Ref Range | Performed | Pathologist | | | | | At | Signature | + +-------+ + + + | AST, | 19 | 13 - 39 | | | | External | | | | | + +-------+ + + + External Lab: Alkaline Phosphatase (10/03/2016) + +-------+ + + + | Component | Value | Ref Range | Performed | Pathologist | | | | | At | Signature | + +-------+ + + + | ALP, | 80 | 30 - 128 | | | | External | | | | | + +-------+ + + + External Lab: Bilirubin, Total (10/03/2016) + +-------+ + + + | Component | Value | Ref Range | Performed | Pathologist | | | | | At | Signature | + +-------+ + + + | Bilirubin, | 0.9 | 0 - 1.2 | | | | Total, | | | | | | External | | | | | + +-------+ + + + External Lab: Albumin (10/03/2016) + +-------+ + + + | Component | Value | Ref Range | Performed | Pathologist | | | | | At | Signature | + +-------+ + + + | Albumin, | 3.8 | 3.5 - 5 | | | | External | | | | | + +-------+ + + + External Lab: Protein, Total (10/03/2016) + +---------+ + + + | Component | Value | Ref Range | Performed | Pathologist | | | | | At | Signature | + +---------+ + + + | Protein, | 5.9 (A) | 6 - 8 | | | | Total, | | | | | | External | | | | | + +---------+ + + + External Lab: Calcium (10/03/2016) + +-------+ + + + | Component | Value | Ref Range | Performed | Pathologist | | | | | At | Signature | + +-------+ + + + | Calcium, | 9.4 | 8.4 - 10.2 | | | | External | | | | | + +-------+ + + + External Lab: Carbon Dioxide (10/03/2016) + +-------+ + + + | Component | Value | Ref Range | Performed | Pathologist | | | | | At | Signature | + +-------+ + + + | Carbon | 27 | 19 - 31 | | | | Dioxide, | | | | | | External | | | | | + +-------+ + + + External Lab: Chloride (10/03/2016) + +-------+ + + + | Component | Value | Ref Range | Performed | Pathologist | | | | | At | Signature | + +-------+ + + + | Chloride, | 104 | 95 - 112 | | | | External | | | | | + +-------+ + + + External Lab: Potassium (10/03/2016) + +-------+ + + + | Component | Value | Ref Range | Performed | Pathologist | | | | | At | Signature | + +-------+ + + + | Potassium, | 4.2 | 3.6 - 5.1 | | | | External | | | | | + +-------+ + + + External Lab: Sodium (10/03/2016) + +-------+ + + + | Component | Value | Ref Range | Performed | Pathologist | | | | | At | Signature | + +-------+ + + + | Sodium, | 143 | 132 - 143 | | | | External | | | | | + +-------+ + + + External Lab: CBC (10/03/2016) + + + + + + | Component | Value | Ref Range | Performed | Pathologist | | | | | At | Signature | + + + + + + | HGB, | 15.4 | 13.5 - 18 | | | | External | | | | | + + + + + + | HCT, | 46.4 | 41 - 50 | | | | External | | | | | + + + + + + | PLT, | 221 | 140 - 440 | | | | External | | | | | + + + + + + | Neutrophils | 73.0 | 39 - 80 | | | | %, | | | | | | External | | | | | + + + + + + | Lymphocytes | 13.3 (A) | 24 - 44 | | | | %, | | | | | | External | | | | | + + + + + + | Monocytes | 9.4 | 0 - 12 | | | | %, External | | | | | + + + + + + | Eosinophils | 3.1 | 0 - 6 | | | | %, | | | | | | External | | | | | + + + + + + | RBC, | 5.02 | 4.3 - 5.7 | | | | External | | | | | + + + + + + | MCV, | 92 | 81 - 99 | | | | External | | | | | + + + + + + | RDW, | 14.4 | 10.5 - 15 | | | | External | | | | | + + + + + + External Lab: eGFR (10/03/2016) + +-------+ + + + | Component | Value | Ref Range | Performed | Pathologist | | | | | At | Signature | + +-------+ + + + | eGFR, | 79 | 60 | | | | External | | | | | + +-------+ + + + + + | Specimen | + + | Blood specimen | | (specimen) | + + External Lab: Creatinine (10/03/2016) + +-------+ + + + | Component | Value | Ref Range | Performed | Pathologist | | | | | At | Signature | + +-------+ + + + | Creatinine, | 0.95 | 0.5 - 1.5 | | | | External | | | | | + +-------+ + + + + + | Specimen | + + | Blood specimen | | (specimen) | + + documented in this encounter Visit Diagnoses Not on filedocumented in this encounter"
--- OUTSIDE RECORDS SUMMARY | ~2020-04-30 | XMS | Encounter Summary ---
Demographics + + + | Address | [address] | | | [place] [address] | + + + | Home Phone | | + + + | Preferred Language | Unknown | + + + | Marital Status | | + + + | Sabianism Affiliation | 1013 | + + + | Race | Unknown | + + + | Ethnic Group | Unknown | + + + Author + + + | Author | [facility] | | | and [place] | + + + | Organization | [facility] | | | and [...] Team Providers + +------+ + | Care Auto Service Writer Name | Role | Phone | + +------+ + PCP | Unavailable | + +------+ + Encounter Details +--------+ + + + + | Date | Type | Department | Care Team | Description | +--------+ + + + + | 01/20/ | Documentati | [facility] | Juan Paris | | | 2016 | on | NEPHROLOGY [address] | M, DO [address] | | | | | [address] | [address] | | | | | [place] | [place] [address] | | | | | [address] | [phone] | | | | | [phone] | | | +--------+ + + + [...] encounter Progress Notes Mariam Oneil RN - 01/21/2016 11:[address] Pope's office at [facility] sulma alejandre renal biopsy. She stated patients blood pressure has been too high and needed to be co ntrolled prior to procedure. Upon review, patient BP at office visit last week BP 130/78. Of fice visit note faxed to [phone]. She will have Dr. Pope review and hopefully sche dule biopsy. documented in this encounter Plan of Treatment [...] PB | | | | | | [place] [address] | | | | | | [phone] | | | | | | | | +--------+ + + + + | 07/23/ | Office | Pulmonology | Jt Roman | | 2019 | Visit | | Tony Edwards MD [address] | | | | | | [address] | | | | | | [place] [address] | | | | | | [phone] | | | | | | | | +--------+ + + + + documented as of this encounter Visit Diagnoses Not on filedocumented in this encounter"
--- OUTSIDE RECORDS SUMMARY | ~2020-04-30 | XMS | Encounter Summary ---
Demographics + + + | Address | [address] | | | [place] [address] | + + + | Home Phone [...] Team Providers + +------+ + | [employer] Driver Name | Role | Phone | + [...] | | | | | Hypertensive | Hadley | [address] | | | | | chronic | [address] | [place], | | | | | kidney | [place], | [place] [address] | | | | | disease with | [place] | Phone: | | | | | stage 1 | [address] | [phone] | | | | | through | Phone: | Fax: | | | | | stage 4 | [phone] | [phone] | | | | | chronic | Fax: | | | | | | kidney | [phone] | | | | | | disease, or | | | | | | | unspecified | | | | | | | chronic | | | | | | | kidney | | | | | | | disease | | | | | | | Procedures | | | | | | | [place] OFFICE | | | | | | | OUTPATIENT | | | | | | | VISIT 25 | | | | | | | MINUTES | | | +--------+--------+ + + + + Encounter Details +--------+ + + + + | Date | Type | Department | Care Team | Description | +--------+ + + + + | 10/09/ | Off-Site | [facility] | Juan Paris | Membranous | | 2017 | Visit | NEPHROLOGY [address] | M, DO [address] | glomerulonephritis | | | | [address] | [address] [place] | (Primary Dx); | | | | [place], [place] | [place] [address] | Essential | | | | [address] | [phone] | hypertension, | | | | [phone] | | benign; Proteinuria | +--------+ + + + + Social [...] + + + | Blood Pressure | 140/76 | 10/09/2016 5:09 PM | | | | | PST | | + + + + + | Pulse | - | - | | + + + + + | Temperature | 36.6 C (97.8 F) | 10/09/2016 5:09 PM | | | | | PST [...] | Weight | 94.3 kg (207 lb 14.3 | 10/09/2016 5:09 PM | | | | oz) | PST | | + + + + + | Height | - | - | | + + + + + | Body Mass Index | 29.83 | 10/14/2015 11:14 AM | | | | | PST | | + + + + + documented in this encounter Progress Notes Juan Paris DO - 10/09/2016 5:10 PM PST Subjective: NEPHROLOGY Patient ID: Sierra Roman is a 66 y.o. male. 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 He initially was treated in 2004 with 6 mo. of prednisone, then, 12 mo. of mycophenolate + 12 weeks prednisone. He is now s/p his 3rd dose of Rituximab 1g, on 09/27/17 after consultation and recommendati on of Dr. Yunior Pope at the [facility], at the [facility]. He state s that he appears to have tolerated it very well. He denies any new edema, hematuria, hyp ertension or other complaints. His total protein excretion appears to have greatly improved from 2037 mg/day in 05/15/16 to 275 mg/day on 10/03/16. (He had his initial dose of Rituximab 1g, IVPB on 03/14/16). He also has a previous histor y of hyperlipidemia, steroid-induced Type II DM, remote history of diverticulitis, and C OPD. Unfortunately, he still continues to smoke despite clear cut advice to quit, also that this potentially could avoid provoking further relapse. His prior CT of the chest, abdome n/pelvis in March, were negative except for evidence of his COPD. Outpatient Prescriptions Marked as Taking for the 10/09/16 encounter (Off-Site Visit) with Chico Paris DO [...] Take 1 tablet by mouth Daily. [DISCONTINUED] finasteride (PROSCAR) 5 mg tablet Take 5 mg by mouth Daily. furosemide (LASIX) 40 mg tablet Take 0.5 tablets by mouth as needed. 90 tablet 4 [DISCONTINUED] furosemide (LASIX) 40 mg tablet Take 0.5 tablets by mouth 2 times daily. (Patient taking differently: Take 20 mg by mouth as needed.) 90 tablet 4 gabapentin (NEURONTIN) 300 mg capsule Take 1 capsule by mouth Twice daily as needed. 6 0 capsule 11 [DISCONTINUED] gabapentin (NEURONTIN) 300 mg capsule Take 1 capsule by mouth 2 times da aleta. (Patient taking differently: Take 300 mg by mouth Twice daily as needed.) 60 capsule 1 1 losartan (COZAAR) 100 MG tablet Take 100 mg by mouth nightly. metoprolol succinate (TOPROL-XL) 50 mg 24 hr tablet 50 mg, AM and 100 mg, PM. [DISCONTINUED] Misc Natural Products (MIDNITE) CHEW Take by [...] Allergen Reactions Amoxicillin Rash Objective: Blood pressure 140/76, temperature 36.6 C (97.8 F), weight 94.3 kg (207 lb 1 4.3 oz). Physical Exam Heart: Regular rate and rhythm with no S3, S4, murmur or rub. Lungs: CTA bilaterally, no rales or wheezes. Abdomen: Soft, flat, nontender, normoactive bowel sounds. Extremities: no clubbing, cyanosis, edema. Lab Results Component Value Date NAEX 143 10/03/2016 KEX 4.2 10/03/2016 CLEX 104 10/03/2016 CO2EX 27 10/03/2016 BUNEX 23 10/03/2016 CREEX 0.95 10/03/2016 EGFREX 79 10/03/2016 GLUEX 158* 10/03/2016 PHOSEX 3.4 10/03/2016 ODZ0FDH 6.1 12/22/2015 Lab Results Component Value Date CHOLEX 177 05/15/2016 HDLEX 55.8* 05/15/2016 LDLEX 96 05/15/2016 TRIGEX 124 05/15/2016 Lab Results Component Value Date WBCEX 9.0 05/15/2016 HGBEX 15.4 10/03/2016 HCTEX 46.4 10/03/2016 PLTEX 221 10/03/2016 Lab Results Component Value Date CRCLEARANCE 13.0* 10/03/2016 PROTEX 275 mg 10/03/2016 Assessment: 1. 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 2. Hypertension--good control. 3. Hyperlipidemia--on statin Rx. 4. Steroid-induced Type II DM-- in remission. 5. COPD--stable. Plan: 1. I reviewed with Sierra that he appears to have responded to the Rituximab very well. I a lso reiterated that his GFR and Scr do appear preserved. 2. Again, I underscored that it would be in his best interest to DC all smoking. 3. Will continue his ARB, losartain, for its renoprotective effects. 4. Will plan to see him back in 3 mo. at the [facility] . He will h ave a CBC, CMP, P04, lipid profile and 24-hour urine collection one week prior to that. : Rico Garcia M.D., [facility] Sandi Pope MD, [facility], Nephrology Section, [facility], [place], [place] Cal Rivera MD 6: 16 PM PSTdocumented in this encounter Plan of Treatment [...] | | | | | | [place] [address] | | | | | | [phone] | | | | | | | | +--------+ + + + + | 07/23/ | Office | Pulmonology | Jt Roman | | | 2019 | Visit | | Tony Edwards MD [address] | | | | | [address] | | | | | | [place] [address] | | | | | | [phone] | | | | | | | [...] | + +--------+ + + + | URINE TIME AND | Routin | 10/03/2016 | | | | VOLUME (NON-ORD) | e | | | | + +--------+ + + + | LABS - EXTERNAL SCAN | | 10/03/2016 | | Results for this | | | | 12:00 AM | | procedure are in the | | | | PST | | results section. | + +--------+ + + + | TOTAL VOLUME,URINE | Routin | 10/03/2016 | | Results for this | | | e | | | procedure are in the | | | | | | results section. | + +--------+ + + + | PROTEIN, URINE, 24HR | Routin | 10/03/2016 | | | | | e | | | | + +--------+ + + + | PROTEIN, URINE, 24HR | Routin | 10/03/2016 | | | | | e | | | | + +--------+ + + + | CREATININE | Routin | 10/03/2016 | | | | CLEARANCE, RESULT | e | | | | + +--------+ + + + | CREATININE | Routin | 10/03/2016 | | Results for this | | CLEARANCE, RESULT | e | | | procedure are in the | | | | | | results section. | + +--------+ + + + | CREATININE | Routin | 10/03/2016 | | | | CLEARANCE, RESULT | e | | | | + +--------+ + + + documented in this encounter Results LABS - EXTERNAL SCAN (10/03/2016 12:00 AM PST) + + + | Narrative | Performed At | + + + | Ordered by an | | | unspecified provider. | | + + + Creatinine Clearance, Result (10/03/2016) + +-------+ + + + | Component | Value | Ref Range | Performed | Pathologist | | | | | At | Signature | + +-------+ + + + | Creatinine | | | | | | Clearance | | | | | | Residual | | | | | + +-------+ + + + + + | Specimen | + + | Urine specimen | | (specimen) | + + Creatinine Clearance, Result (10/03/2016) + +-------+ + + + | Component | Value | Ref Range | Performed | Pathologist | | | | | At | Signature | + +-------+ + + + | Creatinine | 79 | | REFERENCE | | | Clearance | | | LAB | | | Residual | | | [facility] | | + +-------+ + + + + + | Specimen | + + | Urine specimen | | (specimen) | + + + + + + + | Performing | Address | City/State/Zipcode | Phone Number | | Organization | | | | + + + + + | REFERENCE LAB | [address] [facility] [facility] | [place], [place] | [phone] | | [facility] | | [address] | | + + + + + | REFERENCE LAB | [address] [facility] [facility] | [place] | [phone] | | [facility] | | [address] | | + + + + + Creatinine Clearance, Result (10/03/2016) + +-------+ + + + | Component | Value | Ref Range | Performed | Pathologist | | | | | At | Signature | + +-------+ + + + | Creatinine | | | | | | Clearance | | | | | | Residual | | | | | + +-------+ + + + + + | Specimen | + + | Urine specimen | | (specimen) | + + Urine Time and Volume (10/03/2016) + +-------+ + + + | Component | Value | Ref Range | Performed | Pathologist | | | | | At | Signature | + +-------+ + + + | Creatinine | | | | | | Clearance | | | | | | Residual | | | | | + +-------+ + + + + + | Specimen | + + | | + + Total Volume, Urine (10/03/2016) + + | Specimen | + + | Urine specimen | | (specimen) | + + + + + | Narrative | Performed At | + + + | 550 ml | | + + + External Lab: Protein, Urine, 24Hr (10/03/2016) + +--------+ + + + | Component | Value | Ref Range | Performed | Pathologist | | | | | At | Signature | + +--------+ + + + | Protein, | 275 mg | | REFERENCE | | | Urine 24Hr, | | | LAB | | | External | | | [facility] | | + +--------+ + + + + + | Specimen | + + | Urine specimen | | (specimen) | + + + + + + + | Performing | Address | City/State/Zipcode | Phone Number | | Organization | | | | + + + + + | REFERENCE LAB | [address] [place] | [place] | [phone] | | [facility] | | [address] | | + + + + + | REFERENCE LAB | [address] [facility] | [place] | [phone] | | [facility] | | [address] | | + + + + + Protein, Urine, 24Hr (10/03/2016) + + | Specimen | + + | Urine specimen | | (specimen) | + + Protein, Urine, 24Hr (10/03/2016) + + | Specimen | + + | Urine specimen | | (specimen) | + + + + + + + | Performing | Address | City/State/Zipcode | Phone Number | | Organization | | | | + + + + + | REFERENCE LAB | [address] [facility] | [place] | [phone] | | [facility] | | [address] | | + + + + + documented in this encounter Visit Diagnoses + + | Diagnosis | + + | 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
--- OUTSIDE RECORDS SUMMARY | ~2020-04-30 | XMS | Encounter Summary ---
Demographics + + + | Address | [address] | | | [place] [address] | + + + | Home Phone [...] Team Providers + +------+ + | Care Paintings Conservator Name | Role | Phone | + +------+ + PCP | Unavailable | + +------+ + Encounter Details +--------+ + + + + | Date | Type | Department | Care Team | Description | +--------+ + + + + | 04/06/ | Orders Only | [facility] | Juan Paris | Membranous | | 2015 | | NEPHROLOGY [address] | M, DO [address] | glomerulonephritis | | | | [address] | [address] [place] | (Primary Dx); | | | | [place] | [facility] [place] [address] | Hyperlipidemia; | | | | [address] | [phone] | Unspecified | | | | [phone] | | hypertensive kidney | | | | | | disease with chronic | | | | | | kidney disease | | | | | | stage I through | | | | | | stage IV, or | | | | | | unspecified(403.90) | +--------+ + + + + Social [...] + documented as of this encounter Progress Rhiannon Wilburn RN - 04/06/2015 4:30 PM PDTLab order for nephrology appointment on 05/03/15 faxed to [facility]. 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
--- OUTSIDE RECORDS SUMMARY | ~2020-04-30 | XMS | Encounter Summary ---
Demographics + + + | Address | [address] | | | [place] [address] | + + + | Home Phone [...] Team Providers + +------+ + | Care Product Blending Supervisor Name | Role | Phone | + +------+ + PCP | Unavailable | + +------+ + Reason for Visit + +--------+ + | Reason | Onset | Comments | | | Date | | + +--------+ + | Appointment | 07/07/ | | | | 2015 | | + +--------+ + Encounter Details +--------+ + + + + | Date | Type | Department | Care Team | Description | +--------+ + + + + | 07/07/ | Telephone | [facility] | Li Parisias | Appointment | | 2016 | | NEPHROLOGY [address] | M, DO [address] | | | | | [address] | [address] [place] | | | | | [place], [place] | [place] [address] | | | | | [address] | [phone] | | | | | [phone] | | | +--------+ + + + [...] this encounter Miscellaneous Notes Telephone Encounter - Jessica Wagoner - 07/07/2016 12:51 PM PDTCalled patient and left voicemail in regards to his appointment currently in [place] on 10/09/2016. Dr. Paris will be in [place]. I left a message asking him to call the office back and if he wouldn't mind driving into [place] for an appointment same day, same time. Electr onically signed by Jessica Wagoner at 07/07/2016 12:52 PM PDTdocumented in this encounte r Plan of Treatment +--------+ + + + + | Date | Type | Specialty | Care Team | Description | +--------+ + + + + | 05/24/ | Off-Site | Nephrology | Juan Paris | | 2019 | Visit | | DO Nisreen [address] | | | | | | [place] [address] [place] | | | | | | [place] [address] | | | | | | [phone] | | | | | | | | +--------+ + + + + | 07/23/ | Office | Pulmonology | Jt Roman | | | 2020 | Visit | | Tony Edwards MD [address] | | [address] | | | | | | [place] [address] | | | | | | [phone] | | | | | | | | +--------+ + + + + documented as of this encounter Visit Diagnoses Not on filedocumented in this encounter"
--- OUTSIDE RECORDS SUMMARY | ~2020-04-30 | XMS | Encounter Summary ---
Demographics + + + | Address | [address] | | | [place] [address] | + + + | Home Phone | | + + + | Preferred Language | Unknown | + + + | Marital Status | | + + + | Cheondoism Affiliation | 1013 | + + + | Race | Unknown | + + + | Ethnic Group | Unknown | + + + Author + + + | Author | [facility] | | | and [place] | + + + | Organization | [facility] | | [...] Team Providers + +------+ + | Care Agricultural Service Worker Name | Role | Phone | + +------+ + | Meme Burgos MD | PCP | | + +------+ + Reason for Visit Auth/Cert +--------+--------+ + + + + | Status | Reason | Specialty | Diagnoses / | Referred By | Referred To | | | | | Procedures | Contact | Contact | +--------+--------+ + + + + | | | | Diagnoses | | Rob, | | | | | 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 | | [place]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-related | | [address] | | | | | cataract, | | [place] | | | | | right eye | | [place] | | | | | Procedures | | [address] | | | | | ME XCAPSL | | Phone: | | | | | CTRC RMVL | | [phone] | | | | | INSJ IO LENS | | Fax: | | | | | PROSTH W/O | | [phone] | | | | | ECP RIGHT | | | | | | | EXTRACTION | | | | | | | CATARACT W/ | | | | | | | OR W/O LENS | | | | | | | IMPLANT | | | +--------+--------+ + + + + Encounter Details +--------+ + + + + | Date | Type | Department | Care Team | Description | +--------+ + + + + | 04/08/ | Anesthesia | [facility] | Thomas Smith, | | | 2019 | Event | [facility] | MD [address] | | | | | [address] | [place] | | | | | [place] | [address] | | | | | [address] | | | | | | [phone] | | | +--------+ + + + + Anesthesia Record + + + + + | Procedure Name | Responsible | Anesthesia Start | Anesthesia Stop Time | | | Anesthesiologist | Time | | + + + + + | RIGHT EXTRACTION | Thomas Smith MD | 04/08/20 0754 | 04/08/20 0821 | | CATARACT W/ LENS | | | | | IMPLANT (Right Eye) | | | | + + + + + +----+---+ + + | Da | T | Event | Comment | | te | i | | | | | m | | | | | e | | | +----+---+ + + | 07 | 0 | An Checkout | Pre-use anesthesia machine/equipment checkout. | | /0 | 7 | | | | 9/ | 4 | | | | 20 | 1 | | | | 20 | | | | +----+---+ + + | | 0 | | | | | 7 | | | | | 4 | | | | | 3 | | | +----+---+ + + | | 0 | An Start | Reassessment prior to anesthesia induction/procedure. | | | 7 | | | | | 5 | | | | | 4 | | | +----+---+ + + | | 0 | Pre-Procedu | | | | 7 | ral Timeout | | | | 5 | Completed | | | | 6 | | | +----+---+ + + | | 0 | An | | | | 7 | Induction | | | | 5 | | | | | 6 | | | +----+---+ + + | | 0 | Anesthesia | | | | 7 | Ready | | | | 5 | | | | | 8 | | | +----+---+ + + | | 0 | Breathing | | | | 8 | Spontaneous | | | | 0 | ly | | | | 0 | | | +----+---+ + + | | 0 | First | | | | 8 | Inc/Proc St | | | | 0 | | | | | 5 | | | +----+---+ + + | | 0 | an stop | | | | 8 | data | | | | 2 | | | | | 1 | | | +----+---+ + + | | 0 | An Stop | Patient handed off to recovery nurse. | | | 2 | | | | | 1 | | | +----+---+ + + +------+ | Meds | +------+ + +--------+ | Name | Total | + +--------+ | propofol | 55 mg | + +--------+ | lidocaine 2% | 50 mg | + +--------+ | lactated ringers (LR) infusion | 200 mL | + +--------+ + + | Name | + + | N2O Flow Rate (L/Min) | + + | O2 Flow Rate (L/Min) | + + | Insp O2 | + + | Air Flow Rate (L/Min) | + + + + | No blood administrations on file. | + + +--------+ + + + | Type | Details | Placement | Removal | +--------+ + + + | Wound | 04/08/20; 07; Incision; Right; | 04/08/20 0725 by | | | | eye | Lexy Ruvalcaba RN | | +--------+ + + + | Periph | 04/08/20; 0700; Right; Posterior | 04/08/20 0700 by | 04/08/20 0845 by | | eral | (dorsal); Forearm; | Leila Gresham, | Batool Pineda RN | | IV | [id number] catheter system; | RN | | | | 20 gauge, 1 1/4 in length; 1; | | | | | right arm; intradermal injection, | | | | | tolerated well; no longer | | | | | indicated; short term use; | | | | | 04/08/20; 0845 | | | +--------+ + + + documented in this encounter Social History + +-------+ +--------+------+ | Tobacco [...] + + documented as of this encounter OR Notes Anesthesia Postprocedure Evaluation - Thomas Smith MD - 04/08/2020 8:23 AM PDTFormatti ng of this note might be different from the original. ANESTHESIA POSTANESTHESIA EVALUATION Sierra Roman 69 y.o. male 1950 [id number] Procedure(s) RIGHT EXTRACTION CATARACT W/ LENS IMPLANT (Right Eye) Cooperates? Yes Mental Status Performs simple tasks. Respiratory Satisfactory - Airway patent (self maintained). Cardiovascular Satisfactory - Blood pressure and heart rate acceptable Temperature Satisfactory Pain Satisfactory N/V Control Satisfactory Hydration Satisfactory - No signs of dehydration Adverse Events ADVERSE EVENTS: No adverse events Vitals Value Taken Time Temp Pulse 65 04/08/20 0821 Resp 16 04/08/20820 BP 99/84 04/08/20820 Arterial Line BP Arterial Line BP 2 SpO2 96 % 04/08/20820 Electronically signed by Thomas Smith MD 04/08/2020 8:23 AM PDT [facility] MD at 06/2020 8:23 AM PDTAnesthesia Preprocedure Evaluation - Thomas Smith MD - 04/08/2020 6: 37 AM PDT ANESTHESIA PREANESTHESIA EVALUATION Sierra Roman 69 y.o. male 1950 [id number] Procedure(s): RIGHT EXTRACTION CATARACT W/ OR W/O LENS IMPLANT (Right Eye) Medical,anesthesia, drug, allergy histories reviewed, NPO status verified. Labs reviewed. Review of Systems / Med History Cardiovascular (+) hypertension . Pulmonary (+) Chronic Obstructive Pulmonary Disease.(+) obstructive sleep apnea (Noncompliant CPAP).( +) Sleep apnea history/interventions: known.(+) asthma.(+) tobacco use.(+) ex-smoker: 2017. Gastrointestinal/Hepatic (+) acid reflux. Endocrine Lab Results Component Value Date HBA1C 6.2 05/22/2019 . (+) Diabetes: type 2. Physical Exam Airway MP II, TM >3 FB, Mouth opening >2 FB. Neck: full ROM, extends >30 degrees. Dental grossly normal except where noted below. CV Rhythm regular. Rate Normal. (-) murmur. Pulm Clear to auscultation bilaterally. Neuro grossly normal. Anesthesia Plan ASA: 3 (LUZ w/ Noncompliant CPAP, COPD) Type: MAC. Induction: Local anesthesia. Potential problems: None anticipated. Monitors: Standard ASA monitors. Consent statement: Anesthetic plan, alternatives, risks and benefits discussed with patient and spouse. pain, respiratory events, failed or inadequate block Consenting person understands and agrees to proceed. PARQ. MAC/TIVA with propofol and anxiolytics / opioids as needed / tolerated. Discussion distinc tly mentions that awareness is probable during the case, as Dr. Rivas often wants the patie nt to respond to commands.. Electronically Signed by: Thomas Smith MD ESig date/time: 04/08/2020 6:37 AM PDT documented in this en counter Miscellaneous Notes Anesthesia Post-op Handoff - Thomas Smith MD - 04/08/2020 8:21 AM PDTFormatting of thi s note might be different from the original. ANESTHESIA HANDOFF NOTE Sierra Roman 69 y.o. male 1950 [id number] RIGHT EXTRACTION CATARACT W/ LENS IMPLANT (Right Eye) HANDOFF NOTE Handoff Protocol Used: post-procedure handoff checklist completed The following were completed during the transfer of care: 1. Identification of patient 2. Identification of responsible practitioner (primary service) 3. Discussion of pertinent medical history 4. Discussion of the surgical/procedure course (procedure, reason for surgery, procedure pe rformed) 5. Intraoperative anesthetic management and issues/concerns 6. Expectations/plans for the early post-procedure period 7. Opportunity for questions and acknowledgement of understanding of report from receiving team Patient Location: Phase II Condition: alert and awake Airway/O2: other (see comments) Multimodal analgesia: multimodal analgesia not used between 6 hours prior to anesthesia sta rt to PACU discharge Multimodal analgesia not used reason: No medical reason exists for NOT using multimodal saima lgesia. The significant anesthesia concerns and VS in Epic were reviewed with the receiving team. Thomas Smith MD 04/08/2020 8:21 AM PDT [facility]ronically signed by Thomas Smith MD at 06/2020 8:22 AM PDTdocumented in this encounter Plan of Treatment +--------+ + + + + | Date | Type | Specialty | Care Team | Description | +--------+ + + + + | 05/24/ | Off-Site | Nephrology | Juan Paris | | 2019 | Visit | | M, DO [address] | | | | | [address] | | | | | | [place] [address] | | | | | | [phone] | | | | | | | | +--------+ + + + + | 07/23/ | Office | Pulmonology | Jt Roman | | | 2020 | Visit | | Tony Edwards MD [address] | | | | | [address] | | | | | | [place] [address] | | | | | | [phone] | | | | | | | | +--------+ + + + + documented as of this encounter Visit Diagnoses Not on filedocumented in this encounter Administered Medications + + + +------+------+------+ | Medication Order | MAR | Action | Dose | Rate | Site | | | Action | Date | | | | + + + +------+------+------+ | lactated ringers (LR) infusion | Continue | 04/08/20 | | | | | at 10-100 mL/hr, Intravenous, | d by | 20 7:58 | | | | | CONTINUOUS, Starting Radha 04/08/20 | Anesthes | AM PDT | | | | | at 0630, TKO., Pre-op | ia | | | | | + + + +------+------+------+ +---------+ +---+-------+---+ | New Bag | 04/08/20 | | 100 | | | | 20 7:00 | | mL/hr | | | | AM PDT | | | | +---------+ +---+-------+---+ +---+---+ | | | +---+---+ + +-------+ +-------+---+---+ | lidocaine (PF) 2% injection | Given | 04/08/20 | 10 mg | | | | Intravenous, PRN, Starting Rdaha | | 20 8:07 | | | | | 04/08/20 at 0756, Anesthesia | | AM PDT | | | | | Intra-op | | | | | | + +-------+ +-------+---+---+ +-------+ +-------+---+---+ | Given | 04/08/20 | 10 mg | | | | | 20 8:03 | | | | | | AM PDT | | | | +-------+ +-------+---+---+ | Given | 04/08/20 | 10 mg | | | | | 20 7:58 | | | | | | AM PDT | | | | +-------+ +-------+---+---+ +---+---+ | | | +---+---+ + +-------+ +-------+---+---+ | propofol (DIPRIVAN) injection | Given | 04/08/20 | 15 mg | | | | Intravenous, PRN, Starting Radha | | 20 8:07 | | | | | 04/08/20 at 0756, Anesthesia | | AM PDT | | | | | Intra-op | | | | | | + +-------+ +-------+---+---+ +-------+ +-------+---+---+ | Given | 04/08/20 | 10 mg | | | | | 20 8:03 | | | | | | AM PDT | | | | +-------+ +-------+---+---+ | Given | 04/08/20 | 10 mg | | | | | 20 7:58 | | | | | | AM PDT | | | | +-------+ +-------+---+---+ +---+---+ | | | +---+---+ documented in this encounter"
--- OUTSIDE RECORDS SUMMARY | ~2020-04-30 | XMS | Encounter Summary ---
Demographics + + + | Address | [address] | | | [place] [address] | + + + | Home Phone [...] Team Providers + +------+ + | Care Engagement Manager Name | Role | Phone | + +------+ + PCP | Unavailable | + +------+ + Encounter Details +--------+ + + + + | Date | Type | Department | Care Team | Description | +--------+ + + + + | 01/14/ | Documentati | [facility] | Juan Paris | | | 2016 | on | NEPHROLOGY [address] | M, DO [address] | | | | | [address] | [address] | | | | | [place] | [place] [address] | | | | | [address] | [phone] | | | | | [phone] | | | +--------+ + + + [...] | | | | | | [place] [address] | | | | | | [phone] | | | | | | | | +--------+ + + + + | 07/23/ | Office | Pulmonology | Jt Roman | | | 2019 | Visit | | Tony Edwards MD [address] | | | | | [address] | | | | | | [place] [address] | | | | | | [phone] | | | | | | | | +--------+ + + + + documented as of this encounter Visit Diagnoses Not on filedocumented in this encounter"
--- OUTSIDE RECORDS SUMMARY | ~2020-04-30 | XMS | Encounter Summary ---
Demographics + + + | Address | [address] | | | [place] [address] | + + + | Home Phone | | + + + | Preferred Language | Unknown | + + + | Marital Status | | + + + | Lutheran Affiliation | 1013 | + + + [...] Team Providers + +------+ + | Care Repairer Welding Systems And Equipment Name | Role | Phone | + +------+ + PCP | Unavailable | + +------+ + Encounter Details +--------+ + + + + | Date | Type | Department | Care Team | Description | +--------+ + + + + | 01/08/ | Abstract | [facility] | Juan Paris | | | 2017 | | NEPHROLOGY [address] | M, DO [address] | | | | | [address] | [address] | | | | | [place] | [place] [address] | | | | | [address] | [phone] | | | | | [phone] | | | +--------+ + + + [...] [place] | | | | | | [place] [address] | | | | | | [phone] | | | | | | | | +--------+ + + + + | 07/23/ | Office | Pulmonology | Jt Roman | | | 2019 | Visit | | Tony Edwards MD [address] | | | | | [address] | | | | | | [place] [address] | | | | | | [phone] | | | | | | | | +--------+ + + + + documented as of this encounter Procedures + +--------+ + + + | Procedure Name | Priori | Date/Time | Associated Diagnosis | Comments | | | ty | | | | + +--------+ + + + | EXTERNAL LAB: BRENDA | Routin | 01/05/2017 | | Results for this | | | e | | | procedure are in the | | | | | | results section. | + +--------+ + + + | EXTERNAL LAB: | Routin | 01/05/2017 | | Results for this | | GLUCOSE | e | | | procedure are in the | | | | | | results section. | + +--------+ + + + | EXTERNAL LAB: TIM | Routin | 01/05/2017 | | Results for this | | | e | | | procedure are in the | | | | | | results section. | + +--------+ + + + | EXTERNAL LAB: KRIS | Routin | 01/05/2017 | | Results for this | | | e | | | procedure are in the | | | | | | results section. | + +--------+ + + + | EXTERNAL LAB: | Routin | 01/05/2017 | | Results for this | | ALKALINE PHOSPHATASE | e | | | procedure are in the | | | | | | results section. | + +--------+ + + + | EXTERNAL LAB: | Routin | 01/05/2017 | | Results for this | | BILIRUBIN, TOTAL | e | | | procedure are in the | | | | | | results section. | + +--------+ + + + | EXTERNAL LAB: | Routin | 01/05/2017 | | Results for this | | ALBUMIN | e | | | procedure are in the | | | | | | results section. | + +--------+ + + + | EXTERNAL LAB: | Routin | 01/05/2017 | | Results for this | | PROTEIN, TOTAL | e | | | procedure are in the | | | | | | results section. | + +--------+ + + + | EXTERNAL LAB: | Routin | 01/05/2017 | | Results for this | | PHOSPHORUS | e | | | procedure are in the | | | | | | results section. | + +--------+ + + + | EXTERNAL LAB: | Routin | 01/05/2017 | | Results for this | | CALCIUM | e | | | procedure are in the | | | | | | results section. | + +--------+ + + + | EXTERNAL LAB: CARBON | Routin | 01/05/2017 | | Results for this | | DIOXIDE | e | | | procedure are in the | | | | | | results section. | + +--------+ + + + | EXTERNAL LAB: | Routin | 01/05/2017 | | Results for this | | CHLORIDE | e | | | procedure are in the | | | | | | results section. | + +--------+ + + + | EXTERNAL LAB: | Routin | 01/05/2017 | | Results for this | | POTASSIUM | e | | | procedure are in the | | | | | | results section. | + +--------+ + + + | EXTERNAL LAB: SODIUM | Routin | 01/05/2017 | | Results for this | | | e | | | procedure are in the | | | | | | results section. | + +--------+ + + + | EXTERNAL LAB: | Routin | 01/05/2017 | | Results for this | | PROTEIN, URINE, 24HR | e | | | procedure are in the | | | | | | results section. | + +--------+ + + + | EXTERNAL LAB: CBC | Routin | 01/05/2017 | | Results for this | | | e | | | procedure are in the | | | | | | results section. | + +--------+ + + + | EXTERNAL LAB: | Routin | 01/05/2017 | | Results for this | | TRIGLYCERIDES | e | | | procedure are in the | | | | | | results section. | + +--------+ + + + | EXTERNAL LAB: | Routin | 01/05/2017 | | Results for this | | CHOLESTEROL, HDL | e | | | procedure are in the | | | | | | results section. | + +--------+ + + + | EXTERNAL LAB: | Routin | 01/05/2017 | | Results for this | | CHOLESTEROL, TOTAL | e | | | procedure are in the | | | | | | results section. | + +--------+ + + + | EXTERNAL LAB: | Routin | 01/05/2017 | | Results for this | | CHOLESTEROL, LDL | e | | | procedure are in the | | | | | | results section. | + +--------+ + + + | EXTERNAL LAB: EGFR | Routin | 01/05/2017 | | Results for this | | | e | | | procedure are in the | | | | | | results section. | + +--------+ + + + | EXTERNAL LAB: | Routin | 01/05/2017 | | Results for this | | CREATININE | e | | | procedure are in the | | | | | | results section. | + +--------+ + + + | CREATININE | Routin | 01/05/2017 | | Results for this | | CLEARANCE, RESULT | e | | | procedure are in the | | | | | | results section. | + +--------+ + + + documented in this encounter Results Creatinine Clearance, Result (01/05/2017) + + + + + + | Component | Value | Ref Range | Performed | Pathologist | | | | | At | Signature | + + + + + + | CREATININE | 60.0 (A) | 97.0 - 137.0 | | | | CLEARANCE | | mL/min | | | + + + + + + | 24H Urine | 2,000 | mL | | | | Volume | | | | | + + + + + + + + | Specimen | + + | Urine specimen | | (specimen) | + + External Lab: BUN (01/05/2017) + +-------+ + + + | Component [...] + +---------+ + + External Lab: Glucose (01/05/2017) + +---------+ + + + | Component | Value | Ref Range | Performed | Pathologist | | | | | At | Signature | + +---------+ + + + | Glucose, | 171 (A) | 70 - 100 | EXTERNAL | | | External | | | LAB | | + +---------+ + + + + +---------+ + + | Performing | Address | City/State/Zipcode | Phone Number | | Organization | | | | + +---------+ + + | EXTERNAL LAB | | | | + +---------+ + + External Lab: ALT (01/05/2017) + +-------+ + + + | Component | Value | Ref Range | Performed | Pathologist | | | | | At | Signature | + +-------+ + + + | ALT, | 15 | | EXTERNAL | | | External | | | LAB | | + +-------+ + + + + +---------+ + + | Performing | Address | City/State/Zipcode | Phone Number | | Organization | | | | + +---------+ + + | EXTERNAL LAB | | | | + +---------+ + + External Lab: AST (01/05/2017) + +-------+ + + + | Component [...] +---------+ + + External Lab: Alkaline Phosphatase (01/05/2017) + +-------+ + + + | Component | Value | Ref Range | Performed | Pathologist | | | | | At | Signature | + +-------+ + + + | ALP, | 69 | 31 - 121 | EXTERNAL | | | External | | | LAB | | + +-------+ + + + + +---------+ + + | Performing | Address | City/State/Zipcode | Phone Number | | Organization | | | | + +---------+ + + | EXTERNAL LAB | | | | + +---------+ + + External Lab: Bilirubin, Total (01/05/2017) + +-------+ + + + | Component | Value | Ref Range | Performed | Pathologist | | | | | At | Signature | + +-------+ + + + | Bilirubin, | 1.1 | 0 - 1.2 | EXTERNAL | [...] + +---------+ + + External Lab: Albumin (01/05/2017) + +-------+ + + + | Component | Value | Ref Range | Performed | Pathologist | | | | | At | Signature | + +-------+ + + + | Albumin, | 3.8 | 3.5 - 5 | EXTERNAL | | | External | | | LAB | | + +-------+ + + + + +---------+ + + | Performing | Address | City/State/Zipcode | Phone Number | | Organization | | | | + +---------+ + + | EXTERNAL LAB | | | | + +---------+ + + External Lab: Protein, Total (01/05/2017) + +---------+ + + + | Component | Value | Ref Range | Performed | Pathologist | | | | | At | Signature | + +---------+ + + + | Protein, | 5.7 (A) | 6 - 8 | EXTERNAL [...] + +---------+ + + External Lab: Phosphorus (01/05/2017) + +-------+ + + + | Component | Value | Ref Range | Performed | Pathologist | | | | | At | Signature | + +-------+ + + + | Phosphorus, | 3.2 | 2.5 - 5 | EXTERNAL | | | External | | | LAB | | + +-------+ + + + + +---------+ + + | Performing | Address | City/State/Zipcode | Phone Number | | Organization | | | | + +---------+ + + | EXTERNAL LAB | | | | + +---------+ + + External Lab: Calcium (01/05/2017) + +-------+ + + + | Component [...] +---------+ + + External Lab: Carbon Dioxide (01/05/2017) + +-------+ + + + | Component [...] + +---------+ + + External Lab: Chloride (01/05/2017) + +-------+ + + + | Component | Value | Ref Range | Performed | Pathologist | | | | | At | Signature | + +-------+ + + + | Chloride, | 101 | 95 - 112 | EXTERNAL | | | External | | | LAB | | + +-------+ + + + + +---------+ + + | Performing | Address | City/State/Zipcode | Phone Number | | Organization | | | | + +---------+ + + | EXTERNAL LAB | | | | + +---------+ + + External Lab: Potassium (01/05/2017) + +-------+ + + + | Component [...] + +---------+ + + External Lab: Sodium (01/05/2017) + +-------+ + + + | Component | Value | Ref Range | Performed | Pathologist | | | | | At | Signature | + +-------+ + + + | Sodium, | 141 | 135 - 145 | EXTERNAL | | | External | | | LAB | | + +-------+ + + + + +---------+ + + | Performing | Address | City/State/Zipcode | Phone Number | | Organization | | | | + +---------+ + + | EXTERNAL LAB | | | | + +---------+ + + External Lab: Protein, Urine, 24Hr (01/05/2017) + +---------+ + + + | Component | Value | Ref Range | Performed | Pathologist | | | | | At | Signature | + +---------+ + + + | Protein, | 560 (A) | 150 | EXTERNAL | | [...] + +---------+ + + External Lab: CBC (01/05/2017) + + + + + + | Component | Value | Ref Range | Performed | Pathologist | | | | | At | Signature | + + + + + + | WBC, | 12.1 (A) | 4 - 11 | EXTERNAL | | | External | | | LAB | | + + + + + + | HGB, | 15.1 | 12 - 16 | EXTERNAL | | | External | | | LAB | | + + + + + + | HCT, | 45.2 | 40 - 50 | EXTERNAL | | | External | | | LAB | | + + + + + + | PLT, | 240 | 140 - 440 | EXTERNAL | | | External | | | LAB | | + + + + + + | RBC, | 4.89 | 4.3 - 5.7 | EXTERNAL | | | External | | | LAB | | + + + + + + | MCV, | 92 | 81 - 99 | EXTERNAL | | | External | | | LAB | | + + + + + + | RDW, | 13.8 | 10.51 - 15 | EXTERNAL | | | External | | | LAB | | + + + + + + + +---------+ + + | Performing | Address | City/State/Zipcode | Phone Number | | Organization | | | | + +---------+ + + | EXTERNAL LAB | | | | + +---------+ + + External Lab: Triglycerides (01/05/2017) + +-------+ + + + | Component | Value | Ref Range | Performed | Pathologist | | | | | At | Signature | + +-------+ + + + | Triglycerid | 123 | | EXTERNAL | | | es, | [...] +---------+ + + External Lab: Cholesterol, HDL (01/05/2017) + +-------+ + + + | Component | Value | Ref Range | Performed | Pathologist | | | | | At | Signature | + +-------+ + + + | HDL | 58.9 | mg/dl | EXTERNAL | | | Cholesterol [...] +---------+ + + External Lab: Cholesterol, Total (01/05/2017) + +-------+ + + + | Component | Value | Ref Range | Performed | Pathologist | | | | | At | Signature | + +-------+ + + + | Cholesterol | 165 | mg/dl | EXTERNAL | | | , [...] +---------+ + + External Lab: Cholesterol, LDL (01/05/2017) + +-------+ + + + | Component | Value | Ref Range | Performed | Pathologist | | | | | At | Signature | + +-------+ + + + | LDL | 82 | | EXTERNAL | | | Cholesterol | [...] + +---------+ + + External Lab: eGFR (01/05/2017) + +-------+ + + + | Component | Value | Ref Range | Performed | Pathologist | | | | | At | Signature | + +-------+ + + + | eGFR, | 67 | 60 | EXTERNAL | | | [...] + +---------+ + + External Lab: Creatinine (01/05/2017) + +-------+ + + + | Component | Value | Ref Range | Performed | Pathologist | | | | | At | Signature | + +-------+ + + + | Creatinine, | 1.09 | 0.6 - 1.3 | EXTERNAL | [...]
--- OUTSIDE RECORDS SUMMARY | ~2020-04-30 | XMS | Encounter Summary ---
Demographics + + + | Address | [address] | | | [place] [address] | + + + | Home Phone [...] + | Author | [facility] | | | and [place] | + + + | Organization | [facility] | | | and [...] Team Providers + +------+ + | Care Primary Counselor Name | Role | Phone | + +------+ + | Meme Burgos MD | PCP | | + +------+ + Reason for Visit + + + | Reason | Comments | + + + | Pre-op Exam | | + + + Encounter Details +--------+ + + + + | Date | Type | Department | Care Team | Description | +--------+ + + + + | 03/26/ | Clinical | [facility] [place] [facility] | Dylan, | Pre-op testing | | 2020 | Support | CARE [address] | Jeremiah Mclean MD | (Primary Dx) | | | | [place] | [address] | | | | | [address] | [place] [facility] [place] | | | | | [phone] | [address] | | | | | | | [...] + + + + | Pulse | 87 | 03/26/2020 9:31 AM | | | | | PDT | | + + + + + | Temperature | 36.7 C (98 F) | 03/26/2020 9:31 AM | | | | | PDT | | + + + + + | Respiratory Rate | - | - | | + + + + + | Oxygen Saturation | 96% | 03/26/2020 9:31 AM | | | | | PDT [...] + documented in this encounter Progress Notes Rozina Rosario RN - 03/26/2020 9:25 AM PDTPRE-PROCEDURE COVID TEST Affix Patient Label [] Photo ID Verified Patient Name:Sierra Roman Provider:YANN ESQUIVEL URGENT NURSE :1950 Date:03/26/20 MyChart: Pending Activation Symptom Screen: Are you experiencing any of the following symptoms? [] Cough: duration of cough? ___ days ? If symptoms or cough >10 days, send to for provider evaluation [] Shortness of breath ? Confer with provider or send in to if obviously having labored breathing [] Fever [...] [] Asymptomatic - testing requested by authorized [facility] personnel, [facility] Infection Prevention Nurse or Caregiver Health [...] [] Patient Requested [] Temp >102 F [] O2 Sat ? 95% [] Pulse > 100 [] Symptomatic with [...] PB | | | | | | [place] [address] | | | | | | [phone] | | | | | | | | +--------+ + + + + | 07/23/ | Office | Pulmonology | Jt Roman | | 2019 | Visit | | Tony Edwards MD [address] | | | | [address] | | | | | | [place] [address] | | | | | | [phone] | | | | | | | | +--------+ + + + + documented as of this encounter Procedures + +--------+ + + + | Procedure Name | Priori | Date/Time | Associated Diagnosis | Comments | | | ty | | | | + +--------+ + + + | CORONAVIRUS | Routin | 03/26/2020 | Pre-op testing | Results for this | | (COVID-19) NAAT | e | 9:24 AM | | procedure are in the | | | | PDT | | results section. | + +--------+ + + + documented in this encounter Results Coronavirus (COVID-19) NAAT (03/26/2020 9:24 AM PDT) + + + + + [...] + + | Performed at: 01 - [facility] [address], | REFERENCE LAB | | [place], [place] [id number] Hogshead Builder: Shaquille Nguyen MD, Phone: | [place] | | [phone] | | + + + + + + + + | Performing | Address | City/State/Zipcode | Phone Number | | Organization | | | | + + + + + | [facility] | [address] | [place], [place] | [phone] | | [place] [facility] [place] | [place] | [address] | | + + + + + documented in this encounter Visit Diagnoses + + | Diagnosis | + + | Pre-op testing - Primary Preoperative examination, unspecified | + + documented in this encounter"
--- OUTSIDE RECORDS SUMMARY | ~2020-04-30 | XMS | Encounter Summary ---
Demographics + + + | Address | [address] | | | [place] [address] | + + + | Home Phone | | + + + | Preferred Language | Unknown | + + + | Marital Status | | + + + | Gnosticism Affiliation | 1013 | + + + | Race | Unknown | + + + | Ethnic Group | Unknown | + + + Author + + + | Author | [facility] | | | and [place] | + + + | Organization | [facility] | | [...] Team Providers + +------+ + | Care Batch Plant Supervisor Name | Role | Phone | + +------+ + PCP | Unavailable | + +------+ + Reason for Visit + +--------+ + | Reason | Onset | Comments | | | Date | | + +--------+ + | Appointment | 11/01/ | | | | 2016 | | + +--------+ + Encounter Details +--------+ + + + + | Date | Type | Department | Care Team | Description | +--------+ + + + + | 11/01/ | Telephone | [facility] [place] | Venkata Rivera, | Appointment | | 2017 | | PULMONARY [address] | MD [address] | | | | | [place], | [place], [place] | | | | | [place] [address] | [address] | | | | | [phone] | | | +--------+ + + + [...] this encounter Miscellaneous Notes Telephone Encounter - Mercedes Mancia - 11/01/2016 1:57 PM PSTPhoned patient again today as I have left 3 different messages on the voicemail ([id number]) to schedule a follow up. His said that he is not interested in coming back as he is going somewhere else now. documented in this encoun ter Plan of Treatment +--------+ + + + + | Date | Type | Specialty | Care Team | Description | +--------+ + + + + | 05/24/ | Off-Site | Nephrology | Juan Paris | | | 2019 | Visit | | DO Graeme Nielson [address] | | | | | | [address] | | | | | | [place] [address] | | | | | | [phone] | | | | | | | | +--------+ + + + + | 07/23/ | Office | Pulmonology | Jt Roman | | | 2019 | Visit | | Tony Edwards MD [address] | | | | | | [address] | | | | | | [place] [address] | | | | | | [phone] | | | | | | | | +--------+ + + + + documented as of this encounter Visit Diagnoses Not on filedocumented in this encounter"
--- OUTSIDE RECORDS SUMMARY | ~2020-04-30 | XMS | Encounter Summary ---
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, | [address] | | | | | glomerulonep | DO [address] | [place], | | | | | hritis | [address] | [place] [address] | | | | | Procedures | [address] | Phone: | | | | | CT Chest w | [place], | [phone] | | | | | Contrast | [place] [address] | Fax: | | | | | | Phone: | [phone] | | | | | | [phone] | | | | | | | Fax: | | | | | | | [phone] | | +--------+--------+ + + + + Reason for Visit Diagnostic/Screening (Routine) +--------+--------+ + + + + | Status | Reason | Specialty | Diagnoses / | Referred By | Referred To | | | | | Procedures | Contact | Contact | +--------+--------+ + + + + | Closed | | Radiology | Diagnoses | [place], | [address] | | | | | Membranous | Juan M, | [address] | | | | | glomerulonep | DO [address] | [place], | | | | | hritis | [address] | [place] [address] | | | | | Procedures | [address] | Phone: | | | | | CT Chest w | [place], | [phone] | | | | | Contrast | [place] [address] | Fax: | | | | | | Phone: | [phone] | | | | | | [phone] | | | | | | | Fax: | | | | | | | [phone] | | +--------+--------+ + + + + Encounter Details +--------+ + + + + | Date | Type | Department | Care Team | Description | +--------+ + + + + | 02/23/ | Hospital | [facility] | Juan Paris | 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 | Encounter | [facility] [address] | M, DO [address] | glomerulonephritis | | | | [place], | [facility] [address] [place] | | | | | [place] [address] | [place] [address] | | | | | [phone] | [phone] | | | | | | | [...] | | | | | | bronchitis ([facility]), | | | | | | | 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, | | | | | | | 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 | | | | | | | ([facility]), Essential | | | | | | [...] | | | | | | bronchitis ([facility]), | | | | | | | 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, | | | | | | | 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 | | | | | | | ([facility]), Essential | | | | | | [...] [place] | | | | | | [place] [id number] | | | | | | [phone] | | | | | | | | +--------+ + + + + | 07/23/ | Office | Pulmonology | Jt Roman | | | 2019 | Visit | | Tony Edwards MD [address] | | | | | | [address] | | | | | | [place] [address] | | | | | | [phone] | | | | | | | | +--------+ + + + + documented as of this encounter Procedures + +--------+ + + + | Procedure Name | Priori | Date/Time | Associated Diagnosis | Comments | | | ty | | | | + +--------+ + + + | CT CHEST W CONTRAST | Routin | 02/24/2016 | Membranous | Results for this | | | e | 8:04 AM | glomerulonephritis | procedure are in the | | | | PDT | | results section. | + +--------+ + + + | POC BLOOD GASES | Routin | 02/24/2016 | | Results for this | | | e | 7:53 AM | | procedure are in the | | | | PDT | | results section. 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 TECHNIQUE: Axial images are obtained from | [facility] | | thoracic inlet to upper abdomen during the uneventful administration | - IMAGING | | of 80 mL of Omnipaque 350. DOSE: DLP 343.85 mGy-cm FINDINGS: | | | Lungs: There is a background of centrilobular emphysematous | | | changes. These are moderate to severe in the upper lobes and | | | greater throughout the left lung. There is a linear opacity in the | | | lingula that is very likely a scar. There are calcified granulomas | | | in the left lower lobe. No pleural effusions. No bronchiectasis. | | | The airways are patent. Heart and mediastinum: No mediastinal or | | | hilar lymphadenopathy. The lymph nodes present are subcentimeter | | | in size or have clearly fatty blake. There is no aneurysmal | | | dilatation of the thoracic aorta. There is mild prominence of the | | | right and left main pulmonary arteries. The right main pulmonary | | | artery measures 2.5 cm. Mild right cardiac chamber enlargement. | | | No pericardial thickening. Coronary artery calcifications. | | | Chest wall: No axillary or visible supraclavicular lymphadenopathy. | | | Upper abdomen: There is diverticular disease in the transverse | | | colon. No active diverticulitis. There is a visible splenule. | | | Bones: Scattered mild degenerative changes. No compression | | | deformities. No suspicious bony lesions. IMPRESSION - | | | Moderate to severe centrilobular emphysema. Evidence of prior | | | granulomatous disease. Prominence of the right left main pulmonary | | | arteries can indicate underlying pulmonary arterial hypertension. | | | Dictated and Signed by: Ki Bird MD Electronically | | | signed: 02/24/2016 9:50 AM | | + + + + + | Procedure Note | + + | Shahbaz, Rad Results In - 02/24/2016 9:53 AM PDT EXAM: CT CHEST WITH CONTRAST:02/24/2016 | | 7:25 AMHISTORY: membranous glomerulonephritisCOMPARISON: Chest radiograph dated October | | 2015.TECHNIQUE: Axial images are obtained from thoracic inlet to upper abdomen | | duringthe uneventful administration of 80 mL of Omnipaque 350.DOSE: DLP 343.85 mGy-cm | | FINDINGS:Lungs: There is a background of centrilobular emphysematous changes. These | | aremoderate to severe in the upper lobes and greater throughout the left lung. There is | | a linear opacity in the lingula that is very likely a scar. There arecalcified | | granulomas in the left lower lobe. No pleural effusions. Nobronchiectasis. The airways | | are patent.Heart and mediastinum: No mediastinal or hilar lymphadenopathy. The lymph | | nodespresent are subcentimeter in size or have clearly fatty blake. There is | | noaneurysmal dilatation of the thoracic aorta. There is mild prominence of theright and | | left main pulmonary arteries. The right main pulmonary arterymeasures 2.5 cm. Mild | | right cardiac chamber enlargement. No pericardialthickening. Coronary artery | | calcifications.Chest wall: No axillary or visible supraclavicular lymphadenopathy.Upper | | abdomen: There is diverticular disease in the transverse colon. No | | activediverticulitis. There is a visible splenule.Bones: Scattered mild degenerative | | changes. No compression deformities. Nosuspicious bony lesions.IMPRESSION - Moderate | | to severe centrilobular emphysema.Evidence of prior granulomatous disease.Prominence of | | the right left main pulmonary arteries can indicate underlyingpulmonary arterial | | hypertension.Dictated and Signed by: Ki Bird MD Electronically signed: | | 02/24/2016 9:50 AM | |aneurysmal dilatation of the thoracic aorta. There is mild prominence of the | |right and left main pulmonary arteries. The right main pulmonary artery | |measures 2.5 cm. Mild right cardiac chamber enlargement. No pericardial | |thickening. Coronary artery calcifications. | | | |Chest wall: No axillary or visible supraclavicular lymphadenopathy. | | | |Upper abdomen: There is diverticular disease in the transverse colon. No active | |diverticulitis. There is a visible splenule. | | | |Bones: Scattered mild degenerative changes. No compression deformities. No | |suspicious bony lesions. | | | |IMPRESSION - | | | |Moderate to severe centrilobular emphysema. | | | |Evidence of prior granulomatous disease. | | | |Prominence of the right left main pulmonary arteries can indicate underlying | |pulmonary arterial hypertension. | | | |Dictated and Signed by: Ki Bird MD | | Electronically signed: 02/24/2016 9:50 AM | + + + + + + + | Performing | Address | City/State[facility] | Phone Number | | Organization | | | | + + + + + | [facility] | [address] | [place] | [phone] | | [facility] | | [address] | | | - IMAGING | | | | + + + + + POC Blood Gases (02/24/2016 7:53 AM PDT) + +-------+ + + + | Component | Value | Ref Range | Performed | Pathologist | | | | | At | Signature | + +-------+ + + + | Specimen | Vein | | [facility] | | | Source | | | [facility] | | | | | | MEDICAL | | | | | | CENTER - | | | | | | LABORATORY | | + +-------+ + + + | Creatinine, | 1.0 | 0.5 - 1.2 mg/dL | [facility] | | | POC | | | [facility] | | | | | | MEDICAL | | | | | | CENTER - | | | | | | LABORATORY | | + +-------+ + + + | eGFR, | >60 | >=60 | [facility] | | | non- | | mL/min/1.73m2 | [facility] | | | [place] | | | MEDICAL | | | | | | CENTER - | | | | | | LABORATORY | | + +-------+ + + + + + | Specimen | + + | | + + + + + + + | Performing | Address | City/State/Zipcode | Phone Number | | Organization | | | | + + + + + | [facility] | [address] | [place], [place] | [phone] | | [facility] | | [address] | | | - LABORATORY | | [...] | | | + +--------+ +--------+------+------+ | iohexol (OMNIPAQUE 350) 350 | Given | 02/24/20 | 80 mLs | | | | mg/mL injection 80 mL 80 mL, | | 16 7:58 | | | | | Intravenous, ONCE PRN, Other, for | | AM PDT | | | | | imaging CT study, Starting Radha | | | | | | | 02/24/16 at 0745, For 1 dose, | | | | | | | Radiology | | | | | | + +--------+ +--------+------+------+ +---+---+ | | | +---+---+ documented in this encounter"
--- OUTSIDE RECORDS SUMMARY | ~2020-04-30 | XMS | Encounter Summary ---
Demographics + + + | Address | [address] | | | [place] [address] | + + + | Home Phone | | + + + | Preferred Language | Unknown | + + + | Marital Status | | + + + | Scientology Affiliation | 1013 | + + + | Race | Unknown | + + + | Ethnic Group | Unknown | + + + Author + + + | Author | [facility] | | | and [place] | + + + | Organization | [facility] | | | [...] Providers + +------+ + | Care Environmental Economist Name | Role | Phone | + +------+ + PCP | Unavailable | + +------+ + Encounter Details +--------+ + + + + | Date | Type | Department | Care Team | Description | +--------+ + + + + | 02/04/ | Documentati | [facility] [place] | Terrence Quiles | | | 2013 | on | PULMONARY [address] | [place] [address] [address] | | | | | [place], | [place], [place] | | | | | [place] [address] | [address] | | | | | [phone] | | | +--------+ + + + [...] documented as of this encounter Progress Notes Terrence Quiles MD - 02/04/2014 4:48 PM PDTI reviewed a chest x-ray obtained at [facility] on the patient on February 02, 2014. The films shows hyperinflation consistent with COPD in no acute abnormalities. Heart size is lower range of normal.Electro nically signed by Terrence Quiles MD at 02/04/2014 4:50 PM PDTdocumented in this encou nter Plan of Treatment +--------+ + + + + | Date | Type | Specialty | Care Team | Description | +--------+ + + + + | 05/24/ | Off-Site | Nephrology | Juan Prais | | | 2019 | Visit | | DO Nisreen [address] | | | | | | [address] [place] | | | | | | [place] [address] | | | | | | [phone] | | | | | | | | +--------+ + + + + | 07/23/ | Office | Pulmonology | Jt Roman | | | 2019 | Visit | | Tony Edwards MD [address] | | | | | [address] | | | | | | [place] [address] | | | | | | [phone] | | | | | | | | +--------+ + + + + documented as of this encounter Visit Diagnoses + + | Diagnosis | + + | CHRONIC OBSTRUCTIVE PULMONARY DISEASE - Primary Chronic airway obstruction, not | | elsewhere classified | + + | TOBACCO ABUSE, HX OF Personal history of tobacco use, presenting hazards to health | + + documented in this encounter"
--- OUTSIDE RECORDS SUMMARY | ~2020-04-30 | XMS | Encounter Summary ---
Demographics + + + | Address | [address] | | | [place] [address] | + + + | Home Phone [...] + + + | Author | [facility] | | | and [place] | + + + | Organization | [facility] | | | [...] Team Providers + +------+ + | Care Cinder Block Mason Name | Role | Phone | + +------+ + PCP | Unavailable | + +------+ + Encounter Details +--------+ + + + + | Date | Type | Department | Care Team | Description | +--------+ + + + + | 12/13/ | Abstract | [facility] [place] | Juan Paris | | | 2015 | | NEPHROLOGY [address] | M, DO [address] | | | | | [address] | [address] | | | | | [place] | [place] [address] | | | | | [address] | [phone] | | | | | [phone] | | | +--------+ + + + [...] encounter Progress Notes Naida Forman RN - 12/14/2015 10:04 AM PDTFormatting of this note might be different fr om the original. DO Naida Krishna RN OK. I called Sierra on his cell phone. I explained 2 points, a.) His renal Bx would be read by a Team of Renal Pathologists, rather than 1 at [facility]. b.) Tissue would not get lost, which could risk , if we sent UPS from [facility], although less likely. Also, Dr. Pope can prescr regina course of tx, and We can carry out locally. After discussion, Sierra is willing to go their for Bx. He is in a big Cleanup (spill) natalee tly. Could you contact Dr. Sandi Pope's Office, and request Appt. for him to come down NPO, and he could do Bx, at [facility]? Call me if problems? Many Thanks! Sorry, so convoluted. Dr. Tapia Message left at Dr. Pope's office to schedule renal biopsy. Patient will be scheduled for biopsy on 12/21/[address] [facility] and instruction details. Electronically signed by Naida Forman RN at 2:35 PM PDTdocumented in this encounter Plan of [...] | | | | | [place] [address] | | | | | | [phone] | | | | | | | | +--------+ + + + + | 07/23/ | Office | Pulmonology | Jt Roman | | | 2019 | Visit | | Tony Edwards MD [address] | | | | [address] | | | | | | [place] [address] | | | | | | [phone] | | | | | | | | +--------+ + + + + documented as of this encounter Visit Diagnoses Not on filedocumented in this encounter"
--- OUTSIDE RECORDS SUMMARY | ~2020-04-30 | XMS | Encounter Summary ---
Demographics + + + | Address | [address] | | | [place] [address] | + + + | Home Phone | | + + + | Preferred Language | Unknown | + + + | Marital Status | | + + + | Yarsani Affiliation | 1013 | + + + | Race | Unknown | + + + | Ethnic Group | Unknown | + + + Author + + + | Author | [facility] | | | and [place] | + + + | Organization | [facility] | | | and [...] Team Providers + +------+ + | Care Boring Mill Operator Name | Role | Phone | + +------+ + | Meme Burgos MD | PCP | | + +------+ + Encounter Details +--------+ + + + + | Date | Type | Department | Care Team | Description | +--------+ + + + + | 04/23/ | Orders Only | [facility] | Provider, | | | 2019 | | SYSTEM GENERIC OP | [address] | | | | | [address] | [place] | | | | | [address] [place], [place] | [place] [address] | | | | | [address] | | | | | | [phone] | | | +--------+ + + + [...] | | | | | | [place] [address] | | | | | | [phone] | | | | | | | | +--------+ + + + + | 07/23/ | Office | Pulmonology | Jt Roman | | | 2019 | Visit | | Tony Edwards MD [address] | | | | | | [address] | | | | | | [place] [address] | | | | | | [phone] | | | | | | | | +--------+ + + + + documented as of this encounter Visit Diagnoses Not on filedocumented in this encounter"
--- OUTSIDE RECORDS SUMMARY | ~2020-04-30 | XMS | Encounter Summary ---
Demographics + + + | Address | [address] | | | [place] [address] | + + + | Home Phone | | + + + | Preferred Language | Unknown | + + + | Marital Status | | + + + | Rastafarian Affiliation | 1013 | + + + | Race | Unknown | + + + | Ethnic Group | Unknown | + + + Author + + + | Author | [facility] | | | and [place] | + + + | Organization | [facility] | | [...] Team Providers + +------+ + | Care In Home Aide Name | Role | Phone | [...] | Membranous | Juan Nielson, | [address] | | | | | glomerulonep | DO [address] | [place], | | | | | hritis | [address] | [place] [address] | | | | | Procedures | [address] | Phone: | | | | | CT Chest w | [place], | [phone] | | | | | Contrast | [place] [address] | Fax: | | | | | | Phone: | [phone] | | | | | | [phone] | | | | | | | Fax: | | | | | | | [phone] | | +--------+--------+ + + + + Encounter Details +--------+ + + + + | Date | Type | Department | Care Team | Description | +--------+ + + + + | 02/20/ | Orders Only | [facility] [place] | Juan Paris | 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 | | NEPHROLOGY [address] | M, DO [address] | glomerulonephritis | | | | [address] | [address] [place] | (Primary Dx) | | | | [place], [place] | [place] [address] | | | | | [address] | [phone] | | | | | [phone] | | | +--------+ + + + [...] [place] | | | | | | [place] [address] | | | | | | [phone] | | | | | | | | +--------+ + + + + | 07/23/ | Office | Pulmonology | Jt Roman | | 2019 | Visit | | Tony Edwards MD [address] | | | | | [address] | | | | | | [place] [address] | | | | | | [phone] | | | | | | | | +--------+ + + + + documented as of this encounter Results CT Chest w Contrast (02/24/2016 8:04 AM PDT) + + | Specimen | + + | | + + + + + | Narrative | Performed At | + + + | EXAM: CT CHEST WITH CONTRAST:02/24/2016 7:25 AM 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 TECHNIQUE: Axial images are obtained from | [facility] | | thoracic inlet to upper [...] ST. | [address] 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
--- OUTSIDE RECORDS SUMMARY | ~2020-04-30 | XMS | Encounter Summary ---
Demographics + + + | Address | [address] | | | [place] [address] | + + + | Home Phone | | + + + | Preferred Language | Unknown | + + + | Marital Status | | + + + | Orthodoxy Affiliation | 1013 | + + + [...] Team Providers + +------+ + | Care Automatic Paint Sprayer Operator Name | Role | Phone | [...] | | [place] | [place] [address] | | | | | [address] | [phone] | | | | | [phone] | | | +--------+ + + + [...] 05/24/ | Off-Site | Nephrology | Juan Parsi | | 2019 | Visit | | DO Nisreen [address] | | | | | | [address] | | | | | | [place] [address] | | | | | | [phone] | | | | | | | | +--------+ + + + + | 07/23/ | Office | Pulmonology | [facility]t [facility] | | | 2019 | Visit | | Tony Edwards MD [address] | | | | | | [address] | | | | | | [place] [address] | | | | | | [phone] | | | | | | | [...] in this encounter Results Creatinine Clearance, Result (10/03/2016) + +-------+ + + + | Component | Value | Ref Range | Performed | Pathologist | | | | | At | Signature | + +-------+ + + + | CREATININE | | 97.0 - 137.0 | | | | CLEARANCE | | mL/min | | | + +-------+ + + + + + | Specimen | + + | Urine specimen | | (specimen) | + + External Lab: Phosphorus (10/03/2016) + +-------+ + + + | Component | Value | Ref Range | Performed | Pathologist | | | | | At | Signature | + +-------+ + + + | Phosphorus, | 3.4 | 2.5 - 5 | | | | External | | | | | + +-------+ + + + documented in this encounter Visit Diagnoses Not on filedocumented in this encounter"
--- OUTSIDE RECORDS SUMMARY | ~2020-04-30 | XMS | Encounter Summary ---
Demographics + + + | Address | [address] | | | [place] [address] | + + + | Home Phone | | + + + | Preferred Language | Unknown | + + + | Marital Status | | + + + | Christian Affiliation | 1013 | + + + [...] Team Providers + +------+ + | Care Highway Engineering Technician Name | Role | Phone | + +------+ + | Meme Burgos MD | PCP | | + +------+ + Encounter Details +--------+ + + + + | Date | Type | Department | Care Team | Description | +--------+ + + + + | 11/24/ | Abstract | [facility] | Juan Paris | | | 2020 | | NEPHROLOGY [address] | M, DO [address] | | | | | [address] | [address] | | | | | [place] | [place] [address] | | | | | [address] | [phone] | | | | | [phone] | | | +--------+ + + + [...] [place] | | | | | | [place] [address] | | | | | | [phone] | | | | | | | | +--------+ + + + + | 07/23/ | Office | Pulmonology | Jt Roman | | | 2019 | Visit | | Tony Edwards MD [address] | | | | [address] | | | | | | [place] [address] | | | | | | [phone] | | | | | | | | +--------+ + + + + documented as of this encounter Procedures + +--------+ + + + | Procedure Name | Priori | Date/Time | Associated Diagnosis | Comments | | | ty | | | | + +--------+ + + + | EXTERNAL LAB: BUN | Routin | 11/21/2019 | | Results for this | | | e | | | procedure are in the | | | | | | results section. | + +--------+ + + + | EXTERNAL LAB: | Routin | 11/21/2019 | | Results for this | | GLUCOSE | e | | | procedure are in the | | | | | | results section. | + +--------+ + + + | EXTERNAL LAB: ALT | Routin | 11/21/2019 | | Results for this | | | e | | | procedure are in the | | | | | | results section. | + +--------+ + + + | EXTERNAL LAB: AST | Routin | 11/21/2019 | | Results for this | | | e | | | procedure are in the | | | | | | results section. | + +--------+ + + + | EXTERNAL LAB: | Routin | 11/21/2019 | | Results for this | | ALKALINE PHOSPHATASE | e | | | procedure are in the | | | | | | results section. | + +--------+ + + + | EXTERNAL LAB: | Routin | 11/21/2019 | | Results for this | | BILIRUBIN, TOTAL | e | | | procedure are in the | | | | | | results section. | + +--------+ + + + | EXTERNAL LAB: | Routin | 11/21/2019 | | Results for this | | ALBUMIN | e | | | procedure are in the | | | | | | results section. | + +--------+ + + + | EXTERNAL LAB: | Routin | 11/21/2019 | | Results for this | | PROTEIN, TOTAL | e | | | procedure are in the | | | | | | results section. | + +--------+ + + + | EXTERNAL LAB: | Routin | 11/21/2019 | | Results for this | | PHOSPHORUS | e | | | procedure are in the | | | | | | results section. | + +--------+ + + + | EXTERNAL LAB: | Routin | 11/21/2019 | | Results for this | | CALCIUM | e | | | procedure are in the | | | | | | results section. | + +--------+ + + + | EXTERNAL LAB: CARBON | Routin | 11/21/2019 | | Results for this | | DIOXIDE | e | | | procedure are in the | | | | | | results section. | + +--------+ + + + | EXTERNAL LAB: | Routin | 11/21/2019 | | Results for this | | CHLORIDE | e | | | procedure are in the | | | | | | results section. | + +--------+ + + + | EXTERNAL LAB: | Routin | 11/21/2019 | | Results for this | | POTASSIUM | e | | | procedure are in the | | | | | | results section. | + +--------+ + + + | EXTERNAL LAB: SODIUM | Routin | 11/21/2019 | | Results for this | | | e | | | procedure are in the | | | | | | results section. | + +--------+ + + + | EXTERNAL LAB: | Routin | 11/21/2019 | | Results for this | | VITAMIN D, | e | | | procedure are in the | | 25-HYDROXY | | | | results section. | + +--------+ + + + | EXTERNAL LAB: SHANNAN | Routin | 11/21/2019 | | Results for this | | INTACT | e | | | procedure are in the | | | | | | results section. | + +--------+ + + + | EXTERNAL LAB: | Routin | 11/21/2019 | | Results for this | | PROTEIN/CREATININE | e | | | procedure are in the | | RATIO | | | | results section. | + +--------+ + + + | EXTERNAL LAB: MINE | Routin | 11/21/2019 | | Results for this | | | e | | | procedure are in the | | | | | | results section. | + +--------+ + + + | EXTERNAL LAB: MINE | Routin | 11/21/2019 | | Results for this | | | e | | | procedure are in the | | | | | | results section. | + +--------+ + + + | EXTERNAL LAB: | Routin | 11/21/2019 | | Results for this | | TRIGLYCERIDES | e | | | procedure are in the | | | | | | results section. | + +--------+ + + + | EXTERNAL LAB: | Routin | 11/21/2019 | | Results for this | | CHOLESTEROL, HDL | e | | | procedure are in the | | | | | | results section. | + +--------+ + + + | EXTERNAL LAB: | Routin | 11/21/2019 | | Results for this | | CHOLESTEROL, TOTAL | e | | | procedure are in the | | | | | | results section. | + +--------+ + + + | EXTERNAL LAB: | Routin | 11/21/2019 | | Results for this | | CHOLESTEROL, LDL | e | | | procedure are in the | | | | | | results section. | + +--------+ + + + | EXTERNAL LAB: EGFR | Routin | 11/21/2019 | | Results for this | | | e | | | procedure are in the | | | | | | results section. | + +--------+ + + + | EXTERNAL LAB: | Routin | 11/21/2019 | | Results for this | | CREATININE | e | | | procedure are in the | | | | | | results section. | + +--------+ + + + documented in this encounter Results External Lab: Protein/Creatinine Ratio (11/21/2019) + +-------+ + + + | Component | Value | Ref Range | Performed | Pathologist | | | | | At | Signature | + +-------+ + + + | Protein/Cre | 0.112 | 0.2 | | | | atinine | | | | | | Ratio, | | | | | | External | | | | | + +-------+ + + + + + | Specimen | + + | | + + External Lab: PTH, Intact (11/21/2019) + +-------+ + + + | Component | Value | Ref Range | Performed | Pathologist | | | | | At | Signature | + +-------+ + + + | PTH Intact, | 40.55 | | | | | External | | | | | + +-------+ + + + + + | Specimen | + + | | + + External Lab: CBC (11/21/2019) + +-------+ + + + | Component | Value | Ref Range | Performed | Pathologist | | | | | At | Signature | + +-------+ + + + | PLT, | 164 | | EXTERNAL | | | External | | | LAB | | + +-------+ + + + | RDW, | 15 | | EXTERNAL | | | External | | | LAB | | + +-------+ + + + + +---------+ + + | Performing | Address | City/State/Zipcode | Phone Number | | Organization | | | | + +---------+ + + | EXTERNAL LAB | | | | + +---------+ + + External Lab: BUN (11/21/2019) + +-------+ + + + | Component | Value | Ref Range | Performed | Pathologist | | | | | At | Signature | + +-------+ + + + | BUN, | 22 | | EXTERNAL | | | External | | | LAB | | + +-------+ + + + + +---------+ + + | Performing | Address | City/State/Zipcode | Phone Number | | Organization | | | | + +---------+ + + | EXTERNAL LAB | | | | + +---------+ + + External Lab: Glucose (11/21/2019) + +-------+ + + + | Component | Value | Ref Range | Performed | Pathologist | | | | | At | Signature | + +-------+ + + + | Glucose, | 184 | | EXTERNAL | | | External | | | LAB | | + +-------+ + + + + +---------+ + + | Performing | Address | City/State/Zipcode | Phone Number | | Organization | | | | + +---------+ + + | EXTERNAL LAB | | | | + +---------+ + + External Lab: ALT (11/21/2019) + +-------+ + + + | Component [...] + +---------+ + + External Lab: AST (11/21/2019) + +-------+ + + + | Component | Value | Ref Range | Performed | Pathologist | | | | | At | Signature | + +-------+ + + + | AST, | 10 | | EXTERNAL | | | External | | | LAB | | + +-------+ + + + + +---------+ + + | Performing | Address | City/State/Zipcode | Phone Number | | Organization | | | | + +---------+ + + | EXTERNAL LAB | | | | + +---------+ + + External Lab: Alkaline Phosphatase (11/21/2019) + +-------+ + + + | Component | Value | Ref Range | Performed | Pathologist | | | | | At | Signature | + +-------+ + + + | ALP, | 66 | | EXTERNAL | | | External | | | LAB | | + +-------+ + + + + +---------+ + + | Performing | Address | City/State/Zipcode | Phone Number | | Organization | | | | + +---------+ + + | EXTERNAL LAB | | | | + +---------+ + + External Lab: Bilirubin, Total (11/21/2019) + +-------+ + + + | Component | Value | Ref Range | Performed | Pathologist | | | | | At | Signature | + +-------+ + + + | Bilirubin, | 1.1 | | EXTERNAL | | | Total, | | | LAB | | | External | | | | | + +-------+ + + + + +---------+ + + | Performing | Address | City/State/Zipcode | Phone Number | | Organization | | | | + +---------+ + + | EXTERNAL LAB | | | | + +---------+ + + External Lab: Albumin (11/21/2019) + +-------+ + + + | Component | Value | Ref Range | Performed | Pathologist | | | | | At | Signature | + +-------+ + + + | Albumin, | 3.9 | | EXTERNAL | | | External | | | LAB | | + +-------+ + + + + +---------+ + + | Performing | Address | City/State/Zipcode | Phone Number | | Organization | | | | + +---------+ + + | EXTERNAL LAB | | | | + +---------+ + + External Lab: Protein, Total (11/21/2019) + +-------+ + + + | Component | Value | Ref Range | Performed | Pathologist | | | | | At | Signature | + +-------+ + + + | Protein, | 5.4 | | EXTERNAL | | | Total, | | | LAB | | | External | | | | | + +-------+ + + + + +---------+ + + | Performing | Address | City/State/Zipcode | Phone Number | | Organization | | | | + +---------+ + + | EXTERNAL LAB | | | | + +---------+ + + External Lab: Phosphorus (11/21/2019) + +-------+ + + + | Component | Value | Ref Range | Performed | Pathologist | | | | | At | Signature | + +-------+ + + + | Phosphorus, | 2.7 | | EXTERNAL | | | External | | | LAB | | + +-------+ + + + + +---------+ + + | Performing | Address | City/State/Zipcode | Phone Number | | Organization | | | | + +---------+ + + | EXTERNAL LAB | | | | + +---------+ + + External Lab: Calcium (11/21/2019) + +-------+ + + + | Component | Value | Ref Range | Performed | Pathologist | | | | | At | Signature | + +-------+ + + + | Calcium, | 9.3 | | EXTERNAL | | | External | | | LAB | | + +-------+ + + + + +---------+ + + | Performing | Address | City/State/Zipcode | Phone Number | | Organization | | | | + +---------+ + + | EXTERNAL LAB | | | | + +---------+ + + External Lab: Carbon Dioxide (11/21/2019) + +-------+ + + + | Component | Value | Ref Range | Performed | Pathologist | | | | | At | Signature | + +-------+ + + + | Carbon | 31 | | EXTERNAL | | | Dioxide, | | | LAB | | | External | | | | | + +-------+ + + + + +---------+ + + | Performing | Address | City/State/Zipcode | Phone Number | | Organization | | | | + +---------+ + + | EXTERNAL LAB | | | | + +---------+ + + External Lab: Chloride (11/21/2019) + +-------+ + + + | Component | Value | Ref Range | Performed | Pathologist | | | | | At | Signature | + +-------+ + + + | Chloride, | 105 | | EXTERNAL | | | External | | | LAB | | + +-------+ + + + + +---------+ + + | Performing | Address | City/State/Zipcode | Phone Number | | Organization | | | | + +---------+ + + | EXTERNAL LAB | | | | + +---------+ + + External Lab: Potassium (11/21/2019) + +-------+ + + + | Component | Value | Ref Range | Performed | Pathologist | | | | | At | Signature | + +-------+ + + + | Potassium, | 3.8 | | EXTERNAL | | | External | | | LAB | | + +-------+ + + + + +---------+ + + | Performing | Address | City/State/Zipcode | Phone Number | | Organization | | | | + +---------+ + + | EXTERNAL LAB | | | | + +---------+ + + External Lab: Sodium (11/21/2019) + +-------+ + + + | Component | Value | Ref Range | Performed | Pathologist | | | | | At | Signature | + +-------+ + + + | Sodium, | 143 | | EXTERNAL | | | External | | | LAB | | + +-------+ + + + + +---------+ + + | Performing | Address | City/State/Zipcode | Phone Number | | Organization | | | | + +---------+ + + | EXTERNAL LAB | | | | + +---------+ + + External Lab: Vitamin D, 25-Hydroxy (11/21/2019) + +-------+ + + + | Component | Value | Ref Range | Performed | Pathologist | | | | | At | Signature | + +-------+ + + + | Vitamin D, | 58 | | EXTERNAL | | | 25-Hydroxy, | | | LAB | | | External | | | | | + +-------+ + + + + + | Specimen | + + | Blood | + + + +---------+ + + | Performing | Address | City/State/Zipcode | Phone Number | | Organization | | | | + +---------+ + + | EXTERNAL LAB | | | | + +---------+ + + External Lab: CBC (11/21/2019) + +-------+ + + + | Component | Value | Ref Range | Performed | Pathologist | | | | | At | Signature | + +-------+ + + + | WBC, | 12.1 | | EXTERNAL | | | External | | | LAB | | + +-------+ + + + | HGB, | 13.6 | | EXTERNAL | | | External | | | LAB | | + +-------+ + + + | HCT, | 42.3 | | EXTERNAL | | | External | | | LAB | | + +-------+ + + + | RBC, | 4.4 | | EXTERNAL | | | External | | | LAB | | + +-------+ + + + | MCV, | 96 | | EXTERNAL | | | External | | | LAB | | + +-------+ + + + + +---------+ + + | Performing | Address | City/State/Zipcode | Phone Number | | Organization | | | | + +---------+ + + | EXTERNAL LAB | | | | + +---------+ + + External Lab: Triglycerides (11/21/2019) + +-------+ + + + | Component | Value | Ref Range | Performed | Pathologist | | | | | At | Signature | + +-------+ + + + | Triglycerid | 87 | | EXTERNAL | | | es, | | | LAB | | | External | | | | | + +-------+ + + + + + | Specimen | + + | Blood | + + + +---------+ + + | Performing | Address | City/State/Zipcode | Phone Number | | Organization | | | | + +---------+ + + | EXTERNAL LAB | | | | + +---------+ + + External Lab: Cholesterol, HDL (11/21/2019) + +-------+ + + + | Component | Value | Ref Range | Performed | Pathologist | | | | | At | Signature | + +-------+ + + + | HDL | 73.9 | mg/dl | EXTERNAL | | | Cholesterol | | | LAB | | | , External | | | | | + +-------+ + + + + + | Specimen | + + | Blood | + + + +---------+ + + | Performing | Address | City/State/Zipcode | Phone Number | | Organization | | | | + +---------+ + + | EXTERNAL LAB | | | | + +---------+ + + External Lab: Cholesterol, Total (11/21/2019) + +-------+ + + + | Component | Value | Ref Range | Performed | Pathologist | | | | | At | Signature | + +-------+ + + + | Cholesterol | 147 | mg/dl | EXTERNAL | | | , Total, | | | LAB | | | External | | | | | + +-------+ + + + + + | Specimen | + + | Blood | + + + +---------+ + + | Performing | Address | City/State/Zipcode | Phone Number | | Organization | | | | + +---------+ + + | EXTERNAL LAB | | | | + +---------+ + + External Lab: Cholesterol, LDL (11/21/2019) + +-------+ + + + | Component | Value | Ref Range | Performed | Pathologist | | | | | At | Signature | + +-------+ + + + | LDL | 56 | | EXTERNAL | | | Cholesterol | | | LAB | | | , Direct, | | | | | | External | | | | | + +-------+ + + + + + | Specimen | + + | Blood | + + + +---------+ + + | Performing | Address | City/State/Zipcode | Phone Number | | Organization | | | | + +---------+ + + | EXTERNAL LAB | | | | + +---------+ + + External Lab: eGFR (11/21/2019) + +-------+ + + + | Component | Value | Ref Range | Performed | Pathologist | | | | | At | Signature | + +-------+ + + + | eGFR, | 72 | | EXTERNAL | | | External | | | LAB | | + +-------+ + + + + + | Specimen | + + | Blood | + + + +---------+ + + | Performing | Address | City/State/Zipcode | Phone Number | | Organization | | | | + +---------+ + + | EXTERNAL LAB | | | | + +---------+ + + External Lab: Creatinine (11/21/2019) + +-------+ + + + | Component | Value | Ref Range | Performed | Pathologist | | | | | At | Signature | + +-------+ + + + | Creatinine, | 1.02 | | EXTERNAL | | | External | | | LAB | | + +-------+ + + + + + | Specimen | + + | Blood | + + + +---------+ + + | Performing | Address | City/State/Zipcode | Phone Number | | Organization | | | | + +---------+ + + | EXTERNAL LAB | | | | + +---------+ + + documented in this encounter Visit Diagnoses Not on filedocumented in this encounter"
--- OUTSIDE RECORDS SUMMARY | ~2020-04-30 | XMS | Encounter Summary ---
Demographics + + + | Address | [address] | | | [place] [address] | + + + | Home Phone | | + + + | Preferred Language | Unknown | + + + | Marital Status | | + + + | Worship Affiliation | 1013 | + + + | Race | Unknown | + + + | Ethnic Group | Unknown | + + + Author + + + | Author | [facility] | | | and [place] | + + + | Organization | [facility] | | | and [...] Team Providers + +------+ + | Care Trackman Name | Role | Phone | + +------+ + PCP | Unavailable | + +------+ + Encounter Details +--------+ + + + + | Date | Type | Department | Care Team | Description | +--------+ + + + + | 03/13/ | Orders Only | [facility] | Juan Paris | | | 2016 | | NEPHROLOGY [address] | M, DO [address] | | | | | [address] | [address] | | | | | [place] | [place] [address] | | | | | [address] | [phone] | | | | | [phone] | | | +--------+ + + + [...] | | | | | | [place] [address] | | | | | | [phone] | | | | | | | | +--------+ + + + + | 07/23/ | Office | Pulmonology | Jt Roman | | | 2019 | Visit | | Tony Edwards MD [address] | | | [address] | | | | | | [place] [address] | | | | | | [phone] | | | | | | | | +--------+ + + + + documented as of this encounter Visit Diagnoses Not on filedocumented in this encounter"
--- OUTSIDE RECORDS SUMMARY | ~2020-04-30 | XMS | Encounter Summary ---
Demographics + + + | Address | [address] | | | [place] [address] | + + + | Home Phone [...] Team Providers + +------+ + | Care Spanish Professor Name | Role | Phone | + [...] Description | +--------+---------+ + + + | 12/28/ | Office | [facility] | Jt Roman | COPD, severe (HCC) | | 2020 | Visit | PULMONOLOGY [address] | Tony Edwards MD [address] | (Primary Dx); | | | | [address] | [address] [address] | Moderate persistent | | | | [place], [place] | [place] [address] | asthma without | | | | [address] | [phone] | complication; | | | | [phone] | | Nocturnal hypoxemia | +--------+---------+ + [...] + + + | Blood Pressure | 119/73 | 12/29/2019 3:11 PM | | | | | PDT | | + + + + + | Pulse | 79 | 12/29/2019 3:11 PM | | | | | PDT | | + + + + + | Temperature | 36.4 C (97.6 F) | 12/29/2019 3:11 PM | | | | | PDT | | + + + + + | Respiratory Rate | - | - | | + + + + + | Oxygen Saturation | 95% | 12/29/2019 3:11 PM | 2 liters of oxygen | | | | PDT | | + + + + + | Inhaled Oxygen | - | - | | | Concentration | | | | + + + + + | Weight | 90.7 kg (200 lb) | 12/29/2019 3:11 PM | | | | | PDT | | + + + + + | Height | 182.9 cm (6') | 12/29/2019 3:11 PM | | | | | PDT | | + + + + + | Body Mass Index | 27.12 | 12/29/2019 3:11 PM | | | | | PDT | | + + + + + documented in this encounter Progress Notes Jt Roman MD - 12/29/2019 3:15 PM PDTFormatting of this note might be dif ferent from the original. [facility] PULMONOLOGY [address] [place] [address] HISTORY: Chief Complaint: I have been asked [...] he recently had a PFT at the [facility] in [place] about 6 months ago and was told h e had severe COPD. He has also had a CT scan of the chest in 01/2016 showing severe upper l obe predominant emphysema. It seems that he was having trouble with a COPD exacerbation du ring the winter and a month ago. Last month, he went to [facility] and was seen at the ED. He [...] and is very minimal if at all. Ainsley diamond is also on nocturnal O2 at 2LPM. Previously he was on this during the daytime also but ainsley is sats recently. Regarding inhalers, he is on Asmanex and Anoro Ellipta. He has a davidson karan inhaler and uses this once a day on average. He has nebulized albuterol but has not re quired this in the past few weeks. 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 He was previously followed by Dr. Rivera in [place]. Interval history: Sierra is here for follow up for COPD. He recently had a mild exacerbation 2 weeks ago and w as treated with a prednisone taper and doxycyline. Currently he feels much better. He gurdeep ed any fevers. Currently denies dyspnea nor wheezing. He does have a cough although better . He feels it is coming from his sinuses and mucus is stuck in his throat. He nebulizes 3x /day. He continues to use saline sinus rinse 4 times per day and flonase BID. Review of Systems Constitutional: Negative. Negative for chills, fever and malaise/fatigue. HENT: Positive for congestion. Negative for sinus pain and sore throat. Eyes: Negative. Respiratory: Positive for cough and sputum production. Negative for hemoptysis, shortness o f breath, wheezing and stridor. Cardiovascular: Negative. Negative for [...] bronchitis (HCC) COPD (chronic obstructive pulmonary disease) ([facility]) Gold III 12/18/09 COPD (chronic obstructive pulmonary disease) ([facility]) Diabetes mellitus ([facility]) TYPE II Diverticulosis of colon Emphysema [...] SURGERY 2002 SINUS SURGERY TONSILLECTOMY AND ADENOIDECTOMY 1953 Current Medications: Outpatient [...] Calcium Carb-Cholecalciferol 600-800 MG-UNIT TABS (Taking) Take 2 tablets by mouth. calcium, as carbonate, (CALTRATE) 600 mg tablet (Taking) Take 600 mg by mouth daily (with breakfast). calcium-vitamin D 600 mg-200 units per tablet (Taking) Take 1 tablet by mouth daily. cholecalciferol (VITAMIN D-3) 400 units capsule (Taking) Take by mouth daily. citalopram (CELEXA) 10 mg tablet (Taking) Take 10 mg by mouth daily. fish oil 1,000 mg capsule (Taking) Take 500 mg by mouth daily. furosemide (LASIX) 40 mg tablet (Taking) Take 1 tablet by mouth Daily as needed. Green Tea, Camillia sinensis, 315 MG CAPS (Taking) Take 1 capsule by mouth Daily. guaiFENesin (MUCINEX) 600 mg 12 hr tablet (Taking) Take 600 mg by mouth 2 times daily. hydrOXYzine hydrochloride (ATARAX) 25 mg tablet (Taking) Take 25 mg by mouth every 6 (six) hours as needed. FOR ANXIETY losartan (COZAAR) 100 MG tablet (Taking) Take 25 mg by mouth Daily. metFORMIN (GLUCOPHAGE) 500 mg tablet (Taking) Take 500 mg by mouth 4 (four) times daily. 2 pills AM 2 pills PM METOPROLOL SUCCINATE ER PO (Taking) Take 50 mg by mouth nightly. Multiple Vitamins-Minerals (B COMPLEX PLUS VITAMIN C PO) (Taking) Take 1 tablet by mouth D aily. omeprazole (PRILOSEC) 20 mg capsule (Taking) Take one capsule by mouth once daily on an em pty stomach predniSONE (DELTASONE) 10 mg tablet (Taking) Take 1 tablet by mouth Daily for 90 days. promethazine-codeine (PHENERGAN WITH CODEINE) 6.25-10 mg/5 mL syrup (Taking) Take 5 mLs by mouth. 1-3 tsp q 3-8 hrs prn Indications: Cough simvastatin (ZOCOR) 20 mg tablet (Taking) Take 1 tablet by mouth Daily. tamsulosin (FLOMAX) 0.4 mg CAPS (Taking) Take 0.4 mg by mouth every evening. Take 2 tabs n ightly tiotropium (SPIRIVA) 18 mcg inhalation capsule (Taking) Inhale 18 mcg into the lungs daily . Allergies Allergen Reactions Amoxicillin Rash, Hives and Shortness Of Breath Lisinopril Cough Social History Socioeconomic History Marital status: Spouse name: Not on file Number of children: Not on file Years of education: Not on file Highest education level: Not on file Occupational History Not on file Social Needs Financial resource strain: Not on file Food insecurity: Worry: Not on file Inability: Not on file Transportation needs: Medical: Not on file Non-medical: Not on file Tobacco Use Smoking status: Former Smoker Packs/day: 1.00 Years: 41.00 Pack years: 41.00 Last attempt to quit: 09/29/2015 Years since quittin.2 Smokeless tobacco: Former User Types: Chew Quit date: 12/11/2016 Tobacco comment: Current chew Substance and Sexual Activity Alcohol use: No Alcohol/week: 0.0 standard drinks Comment: Alcoholic Drinks/day: occ Drug use: No Comment: Drug use: No Sexual activity: Not on file Lifestyle Physical activity: Days per week: Not on file Minutes per session: Not on file Stress: Not on file Relationships Social connections: Talks on phone: Not on file Gets together: Not on file Attends christianity service: Not on file Active member of club or organization: Not on file Attends meetings of clubs or organizations: Not on file Relationship status: Not on file Intimate partner violence: Fear of current or ex partner: Not [...] Diabetes Brother PHYSICAL EXAMINATION: Vital Signs: Vitals: 12/29/19 1511 BP: 119/73 Pulse: 79 Temp: 36.4 C (97.6 F) TempSrc: Oral SpO2: 95% Weight: 90.7 kg (200 lb) Height: 1.829 m (6') Weight: Wt Readings from Last 2 Encounters: 12/29/19 90.7 kg (200 lb) 11/24/19 91 kg (200 lb 9.9 oz) .lastwt BMI: Body mass index is 27.12 kg/m. Physical Exam Constitutional: He is well-developed, [...] has no wheezes. He has no rales. Abdominal: Soft. He exhibits no distension. There is no abdominal tenderness. Musculoskeletal: General: No edema. Lymphadenopathy: He has no cervical adenopathy. [...] has COPD with emphysema and asthma overlap. - recently had an exacerbation on 12/14 and now improved with no wheezing on exam - residual productive cough likely due to postnasal drip as well - he has complete his prednisone taper and abx. Will continue with prednisone 10mg PO once daily. - continue symbicort 160/4.5 2 puff BID - continue singulair 10 daily - continue albuterol inh and nebs PRN for wheezing or dyspnea 2. Chronic nocturnal hypoxemia - continue 2LPM O2 at night. 3. Chronic/recurrent sinusitis - follows with ENT - continue saline sinus rinses - he is doing it 4 x/day - continue flonase BID - add nonsedating antihistamine daily - claritin, zyrtec, or una The patient will follow up with me in 3 months Jt Roman MD Pulmonary and Critical Care Medicine [facility] Pulmonology documented in this encounter Plan of [...] PB | | | | | | [place] [address] | | | | | | [phone] | | | | | | | | +--------+ + + + + | 07/23/ | Office | Pulmonology | Jt Roman | | | 2020 | Visit | | Tony Edwards MD [address] | | | | | | [address] | | | | | | [place] [address] | | | | | | [phone] | | | | | | | | +--------+ + + + + documented as of this encounter Visit Diagnoses + + | Diagnosis | + + | COPD, severe (HCC) - Primary Chronic airway obstruction, not elsewhere classified | + + | Moderate persistent asthma without complication Unspecified asthma | + + | Nocturnal hypoxemia Hypoxemia | + + documented in this encounter"
--- OUTSIDE RECORDS SUMMARY | ~2020-04-30 | XMS | Encounter Summary ---
Demographics + + + | Address | [address] | | | [place] [address] | + + + | Home Phone | | + + + | Preferred Language | Unknown | + + + | Marital Status | | + + + | Confucianism Affiliation | 1013 | + + + [...] Team Providers + +------+ + | Care Plastics Repairer Name | Role | Phone | + +------+ + PCP | Unavailable | + +------+ + Reason for Visit Diagnostic/Screening (Routine) +--------+--------+ + + + + | Status | Reason | Specialty | Diagnoses / | Referred By | Referred To | | | | | Procedures | Contact | Contact | +--------+--------+ + + + + | Closed | | Radiology | Diagnoses | [place], | [address] | | | | | Left kidney | Juan Nielson, | [address] [place] | | | | | mass | DO [address] | [place], | | | | | Procedures | [address] | [place] [address] | | | | | CT Abdomen w | [address] | Phone: | | | | | wo Contrast | [place], | [phone] | | | | | CT Abdomen | [place] [address] | Fax: | | | | | w Contrast | Phone: | [phone] | | | | | | [phone] | | | | | | | Fax: | | | | | | | [phone] | | +--------+--------+ + + + + Encounter Details +--------+ + + + + | Date | Type | Department | Care Team | Description | +--------+ + + + + | 03/13/ | Hospital | [facility] | Juan Paris | Left kidney mass | | 2016 | Encounter | MED [facility] [address] | M, DO [address] | | | | | [place], | [address] [place] | | | | | [place] [address] | [place] [address] | | | | | [phone] | [phone] | | | | | | | [...] | | | | | type II ([facility]), | | | | | | | [...] | | | | | | [place] [address] | | | | | | [phone] | | | | | | | | +--------+ + + + + | 07/23/ | Office | Pulmonology | Jt Roman | | | 2019 | Visit | | Tony Edwards MD [address] | | | | | | [address] | | | | | | [place] [address] | | | | | | [phone] | | | | | | | | +--------+ + + + + documented as of this encounter Procedures + +--------+ + + + | Procedure Name | Priori | Date/Time | Associated Diagnosis | Comments | | | ty | | | | + +--------+ + + + | CT ABDOMEN W WO | Routin | 03/13/2016 | Left kidney mass | Results for this | | CONTRAST | e | 12:38 PM | | procedure are in the | | | | PDT | | results section. | + +--------+ + + + documented in this encounter Results CT Abdomen w wo Contrast (03/13/2016 12:38 PM PDT) + + | Specimen | + + | | + + + + + | Narrative | Performed At | + + + | UNENHANCED AND ENHANCED CT ABDOMEN 03/13/2016 12:27 PM CLINICAL | [facility] | | HISTORY: left kidney mass COMPARISON: Chest CT February 23 | | | TECHNIQUE: Axial images are performed through the abdomen both | | | before and after the uneventful intravenous administration of 85 mL | | | Omnipaque 350 contrast. Coronal and sagittal reformations | | | are also performed. ABDOMEN FINDINGS: Emphysematous changes are | | | present in the imaged lung bases. Imaged mediastinum is | | | unremarkable. The liver, spleen and adjacent splenule, pancreas | | | and adrenal glands are unremarkable. One or more tiny calcified | | | gallstones are suggested dependently in the gallbladder. No biliary | | | ductal dilation is evident. Few rounded low-attenuation lesions | | | consistent with cysts are noted within/arising from both kidneys, | | | demonstrating no significant enhancement on the postcontrast images, | | | and measuring up to 2.4 cm in the mid left kidney as well as the mid | | | right kidney. No suspicious renal lesion or perinephric abnormality | | | is apparent. No renal or proximal ureteral calculus or | | | hydronephrosis is evident. There is diverticulosis involving the | | | imaged left colon, without evidence of diverticulitis. The stomach | | | and imaged bowel are otherwise unremarkable, along with the normal | | | caliber appendix. No free air, ascites, pathologic lymph node | | | enlargement or hernia is evident. There is scattered aortoiliac | | | calcification. There is multilevel spondylosis involving the imaged | | | thoracolumbar spine. IMPRESSION - 1. FEW BILATERAL | | | LOW-ATTENUATION RENAL CYSTS. NO SUSPICIOUS RENAL LESION OR | | | HYDRONEPHROSIS IS EVIDENT. 2. CHOLELITHIASIS. 3. COLONIC | | | DIVERTICULOSIS. 4. VASCULAR CALCIFICATION. Dictated and | | | Signed by: Watson Guzman MD Electronically signed: 03/13/2016 4:45 | | | PM | | + + + + + | Procedure Note | + + | Shahbaz, Rad Results In - 03/13/2016 4:48 PM PDT UNENHANCED AND ENHANCED CT ABDOMEN | | 03/13/2016 12:27 PM CLINICAL HISTORY: left kidney mass COMPARISON: Chest CT February 23 | | TECHNIQUE: Axial images are performed through the abdomen both before and afterthe | | uneventful intravenous administration of 85 mL Omnipaque 350 contrast. Coronal and | | sagittal reformations are also performed. ABDOMEN FINDINGS: Emphysematous changes are | | present in the imaged lung bases. Imaged mediastinum is unremarkable.The liver, spleen | | and adjacent splenule, pancreas and adrenal glands areunremarkable. One or more tiny | | calcified gallstones are suggested dependentlyin the gallbladder. No biliary ductal | | dilation is evident.Few rounded low-attenuation lesions consistent with cysts are | | notedwithin/arising from both kidneys, demonstrating no significant enhancement onthe | | postcontrast images, and measuring up to 2.4 cm in the mid left kidney aswell as the mid | | right kidney. No suspicious renal lesion or perinephricabnormality is apparent. No | | renal or proximal ureteral calculus orhydronephrosis is evident.There is diverticulosis | | involving the imaged left colon, without evidence ofdiverticulitis. The stomach and | | imaged bowel are otherwise unremarkable, alongwith the normal caliber appendix. No free | | air, ascites, pathologic lymph nodeenlargement or hernia is evident.There is scattered | | aortoiliac calcification. There is multilevel spondylosisinvolving the imaged | | thoracolumbar spine. IMPRESSION - 1. FEW BILATERAL LOW-ATTENUATION RENAL CYSTS. NO | | SUSPICIOUS RENAL LESION ORHYDRONEPHROSIS IS EVIDENT.2. CHOLELITHIASIS.3. COLONIC | | DIVERTICULOSIS.4. VASCULAR CALCIFICATION.Dictated and Signed by: Watson Guzman MD | | Electronically signed: 03/13/2016 4:45 PM | |abnormality is apparent. No renal or proximal ureteral calculus or | |hydronephrosis is evident. | | | |There is diverticulosis involving the imaged left colon, without evidence of | |diverticulitis. The stomach and imaged bowel are otherwise unremarkable, along | |with the normal caliber appendix. No free air, ascites, pathologic lymph node | |enlargement or hernia is evident. | | | |There is scattered aortoiliac calcification. There is multilevel spondylosis | |involving the imaged thoracolumbar spine. | | | |IMPRESSION - | |1. FEW BILATERAL LOW-ATTENUATION RENAL CYSTS. NO SUSPICIOUS RENAL LESION OR | |HYDRONEPHROSIS IS EVIDENT. | | | |2. CHOLELITHIASIS. | | | |3. COLONIC DIVERTICULOSIS. | | | |4. VASCULAR CALCIFICATION. | | | |Dictated and Signed by: Watson Guzman MD | | Electronically signed: 03/13/2016 4:45 PM | + + + +---------+ + + | Performing | Address | City/State/Zipcode | Phone Number | | Organization | | | | + +---------+ + + | [facility] | | | | + +---------+ + + documented in this encounter Visit Diagnoses + + | Diagnosis | + + | Left kidney mass Unspecified disorder of kidney and ureter | + + documented in this encounter Administered Medications + +--------+ +--------+------+------+ | Medication Order | MAR | Action | Dose | Rate | Site | | | Action | Date | | | | + +--------+ +--------+------+------+ | iohexol (OMNIPAQUE 350) 350 | Given | 03/13/20 | 85 mLs | | | | mg/mL injection 85 mL 85 mL, | | 16 12:39 | | | | | Intravenous, ONCE PRN, Other, | | PM PDT | | | | | Starting 03/13/16 at 1238, For | | | | | | | 1 dose, Cat Scanner | | | | | | + +--------+ +--------+------+------+ +---+---+ | | | +---+---+ documented in this encounter"
--- OUTSIDE RECORDS SUMMARY | ~2020-04-30 | XMS | Encounter Summary ---
Demographics + + + | Address | [address] | | | [place] [address] | + + + | Home Phone [...] Team Providers + +------+ + | Care Central Station Operator Name | Role | Phone | [...] | | [place] | [place] [address] | | | | | [address] | [phone] | | | | | [phone] | | | +--------+ + + + [...] PB | | | | | | [place] [address] | | | | | | [phone] | | | | | | | | +--------+ + + + + | 07/23/ | Office | Pulmonology | Jt Roman | | | 2019 | Visit | | Tony Edwards MD [address] | | | | | | [address] | | | | | | [place] [address] | | | | | | [phone] | | | | | | | | +--------+ + + + + documented as of this encounter Visit Diagnoses + + | Diagnosis | + + | Mass of left kidney Unspecified disorder of kidney and ureter | + + documented in this encounter"
--- OUTSIDE RECORDS SUMMARY | ~2020-04-30 | XMS | Encounter Summary ---
Demographics + + + | Address | [address] | | | [place] [address] | + + + | Home Phone | | + + + | Preferred Language | Unknown | + + + | Marital Status | | + + + | Gnosticism Affiliation | 1013 | + + + | Race | Unknown | + + + | Ethnic Group | Unknown | + + + Author + + + | Author | [facility] | | | and [place] | + + + | Organization | [facility] | | [...] Team Providers + +------+ + | Care Rivet Thrower Name | Role | Phone | + +------+ + | Meme Burgos MD | PCP | | + +------+ + Encounter Details +--------+ + + + + | Date | Type | Department | Care Team | Description | +--------+ + + + + | 11/25/ | Abstract | [facility] [place] | Juan Paris | | | 2019 | | NEPHROLOGY [address] | M, DO [address] | | | | | [address] | [address] | | | | | [place] | [place] [address] | | | | | [address] | [phone] | | | | | [phone] | | | +--------+ + + + [...] PB | | | | | | [place] [address] | | | | | | [phone] | | | | | | | | +--------+ + + + + | 07/23/ | Office | Pulmonology | Jt Roman | | | 2019 | Visit | | Tony Edwards MD [address] | | | | | | [address] | | | | | | [place] [address] | | | | | | [phone] | | | | | | | | +--------+ + + + + documented as of this encounter Procedures + +--------+ + + + | Procedure Name | Priori | Date/Time | Associated Diagnosis | Comments | | | ty | | | | + +--------+ + + + | EXTERNAL LAB: | Routin | 11/21/2019 | | | | PROTEIN/CREATININE | e | | | | | RATIO | | | | | + +--------+ + + + documented in this encounter Results External Lab: Protein/Creatinine Ratio (11/21/2019) + +-------+ + + + | Component | Value | Ref Range | Performed | Pathologist | | | | | At | Signature | + +-------+ + + + | Protein/Cre | | | | | | atinine | | | | | | Ratio, | | | | | | External | | | | | + +-------+ + + + + + | Specimen | + + | | + + documented in this encounter Visit Diagnoses Not on filedocumented in this encounter"
--- OUTSIDE RECORDS SUMMARY | ~2020-04-30 | XMS | Encounter Summary ---
Demographics + + + | Address | [address] | | | [place] [address] | + + + | Home Phone | | + + + | Preferred Language | Unknown | + + + | Marital Status | | + + + | Pentecostal Affiliation | 1013 | + + + | Race | Unknown | + + + | Ethnic Group | Unknown | + + + Author + + + | Author | [facility] | | | and [place] | + + + | Organization | [facility] | | [...] Team Providers + +------+ + | Care Pacu Nurse Name | Role | Phone | + +------+ + PCP | Unavailable | + +------+ + Encounter Details +--------+ + + + + | Date | Type | Department | Care Team | Description | +--------+ + + + + | 03/28/ | Orders Only | [facility] [place] | Juan Paris | Neuropathy (Primary | | 2016 | | NEPHROLOGY [address] | M, DO [address] | Dx) | | | | [address] | [address] [place] | | | | | [place] | [place] [address] | | | | | [address] | [phone] | | | | | [phone] | | | +--------+ + + + [...] + + documented as of this encounter Fawn Cartagena - 03/29/2016 8:02 AM PDTNephrology note e-faxed to Rico Garcia MD, Daniel Pope MD, FACP at [facility] Nephrology on 03/29/16. Juan Hernandez DO - 03/28/2016 7:28 PM PDTNEPHROLOGY Sierra called complaining of paresthesias in his hands and feet like "pins and needles". He denies any rash or fever with this. Will begin gabapentin 300 mg, po, at at bedtime. Zaida lewis was called to [facility], [place]. I told him to call me in 48 hours to check on his symptoms. I did discuss that this could potentially improve with time once he is further out from the infusion. : Rico Pope M.D., [facility] documented in zaida lewis encounter Plan of Treatment +--------+ + + + + | Date | Type | Specialty | Care Team | Description | +--------+ + + + + | 05/24/ | Off-Site | Nephrology | Juan Paris | | | 2019 | Visit | | DO Nisreen [address] | | | | | | [place] | | | | | | [place] [address] | | | | | | [phone] | | | | | | | | +--------+ + + + + | 07/23/ | Office | Pulmonology | Jt Roman | | | 2019 | Visit | | Tony Edwards MD [address] | | | | | | [address] | | | | | | [place] [address] | | | | | | [phone] | | | | | | | | +--------+ + + + + documented as of this encounter Visit Diagnoses + + | Diagnosis | + + | 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
--- OUTSIDE RECORDS SUMMARY | ~2020-04-30 | XMS | Encounter Summary ---
Demographics + + + | Address | [address] | | | [place] [address] | + + + | Home Phone [...] Team Providers + +------+ + | Care Requirements Engineer Name | Role | Phone | + +------+ + PCP | Unavailable | + +------+ + Reason for Visit + +--------+ + | Reason | Onset | Comments | | | Date | | + +--------+ + | Medication Refill | 08/31/ | | | | 2013 | | + +--------+ + Encounter Details +--------+--------+ + + + | Date | Type | Department | Care Team | Description | +--------+--------+ + + + | 08/31/ | Refill | [facility] [place] | Juan Paris | Medication Refill | | 2013 | | NEPHROLOGY [address] | M, DO [address] | | | | | [address] | [address] [place] | | | | | [place], [place] | [place] [address] | | | | | [address] | [phone] | | | | | [phone] | | | +--------+--------+ + + + [...] this encounter Miscellaneous Notes Telephone Encounter - Rhiannon Avila RN - 08/31/2014 10:15 AM PSTPatient would also like Zolpidem renewed. I asked his to call Gayle Moreno and ask if they could transfer th e prescription to [facility]. She will call the office if there is a problem.Electronical ly signed by Rhiannon Avila RN at 08/31/2014 10:17 AM PSTdocumented in this encounter Plan of [...] [address] | | | | | | [place] [address] | | | | | | [phone] | | | | | | | | +--------+ + + + + | 07/23/ | Office | Pulmonology | Jt Roman | | | 2019 | Visit | | Tony Edwards MD [address] | | | | | | [address] | | | | | | [place] [address] | | | | | | [phone] | | | | | | | | +--------+ + + + + documented as of this encounter Visit Diagnoses Not on filedocumented in this encounter"
--- OUTSIDE RECORDS SUMMARY | ~2020-04-30 | XMS | Encounter Summary ---
Demographics + + + | Address | [address] | | | [place] [address] | + + + | Home Phone | | + + + | Preferred Language | Unknown | + + + | Marital Status | | + + + | Shinto Affiliation | 1013 | + + + | Race | Unknown | + + + | Ethnic Group | Unknown | + + + Author + + + | Author | [facility] | | | and [place] | + + + | Organization | [facility] | | | [...] Team Providers + +------+ + | Care Mailing Specialist Name | Role | Phone | + +------+ + PCP | Unavailable | + +------+ + Reason for Visit + +--------+ + | Reason | Onset | Comments | | | Date | | + +--------+ + | Medication Refill | 07/16/ | | | | 2012 | | + +--------+ + Encounter Details +--------+--------+ + + + | Date | Type | Department | Care Team | Description | +--------+--------+ + + + | 07/16/ | Refill | [facility] [place] | Juan Paris | Medication Refill | | 2012 | | NEPHROLOGY [address] | M, DO [address] | | | | | [address] | [address] [place] | | | | | [place], [place] | [place] [address] | | | | | [address] | [phone] | | | | | [phone] | | | +--------+--------+ + + + [...] | | | | | | [place] [address] | | | | | | [phone] | | | | | | | | +--------+ + + + + | 07/23/ | Office | Pulmonology | Jt Roman | | | 2019 | Visit | | Tony Edwards MD [address] | | | | | [address] | | | | | | [place] [address] | | | | | | [phone] | | | | | | | | +--------+ + + + + documented as of this encounter Visit Diagnoses Not on filedocumented in this encounter"
--- OUTSIDE RECORDS SUMMARY | ~2020-04-30 | XMS | Encounter Summary ---
Demographics + + + | Address | [address] | | | [place] [address] | + + + | Home Phone | | + + + | Preferred Language | Unknown | + + + | Marital Status | | + + + | Jewish Affiliation | 1013 | + + + | Race | Unknown | + + + | Ethnic Group | Unknown | + + + Author + + + | Author | [facility] | | | and [place] | + + + | Organization | [facility] | [...] Team Providers + +------+ + | Care Bus And Rail Operator Name | Role | Phone | + +------+ + PCP | Unavailable | + +------+ + Encounter Details +--------+ + + + + | Date | Type | Department | Care Team | Description | +--------+ + + + + | 03/07/ | Hospital | [facility] | Conversion | Diagnosis unknown | | 2017 | Encounter | CONVERSION [address] | Transaction, | | | | | [address] | Provider Unknown | | | | | [place], [place] | | | | | | [address] | | | | | | [phone] | | | +--------+ + + + [...] [facility] | | | | | | [facility] [address] | | | | | | [place] [address] | | | | | | [phone] | | | | | | | | +--------+ + + + + | 07/23/ | Office | Pulmonology | Jt Roman | | | 2019 | Visit | | Tony Edwards MD [address] | | | | | [address] | | | | | | [place] [address] | | | | | | [phone] | | | | | | | | +--------+ + + + + documented as of this encounter Procedures + +--------+ + + + | Procedure Name | Priori | Date/Time | Associated Diagnosis | Comments | | | ty | | | | + +--------+ + + + | XR CHEST 1 VIEW | Routin | 01/06/2017 | | Results for this | | | e | 6:24 PM | | procedure are in the | | | | PDT | | results section. | + +--------+ + + + documented in this encounter Results XR Chest 1 Vw (01/06/2017 6:24 PM PDT) + + | Specimen | + + | | + + + + + | Narrative | Performed At | + + + | This is a non-reportable procedure without a radiologist report and | | | is used for image storage only | | + + + + + | Procedure Note | + + | Jim Hartmann - 05/15/2019 2:45 AM PDT This is a non-reportable procedure | | without a radiologist report and isused for image storage only | + + documented in this encounter Visit Diagnoses + + | Diagnosis | + + | Diagnosis unknown Other unknown and unspecified cause of morbidity or mortality | + + documented in this encounter"
--- OUTSIDE RECORDS SUMMARY | ~2020-04-30 | XMS | Encounter Summary ---
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
--- OUTSIDE RECORDS SUMMARY | ~2020-04-30 | XMS | Encounter Summary ---
Demographics + + + | Address | [address] | | | [place] [address] | + + + | Home Phone [...] Team Providers + +------+ + | Care Play Leader Name | Role | Phone | + +------+ + PCP | Unavailable | + +------+ + Encounter Details +--------+ + + + + | Date | Type | Department | Care Team | Description | +--------+ + + + + | 05/11/ | Orders Only | [facility] [place] | Juan Paris | 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 | | NEPHROLOGY [address] | M, DO [address] | glomerulonephritis | | | | [address] | [address] [place] | (Primary Dx); | | | | [place] | [place] [address] | Hyperlipidemia, | | | | [address] | [phone] | unspecified | | | | [phone] | | hyperlipidemia type | +--------+ + [...] encounter Progress Notes Mariam Oneil RN - 05/11/2016 5:28 PM PDTLabs for nephrology appt on 05/22/16 sent to [facility]. documented in this en counter Plan [...] PB | | | | | | [place] [address] | | | | | | [phone] | | | | | | | | +--------+ + + + + | 07/23/ | Office | Pulmonology | Jt Roman | | | 2019 | Visit | | Tony Edwards MD [address] | | | | | [address] | | | | | | [place] [address] | | | | | | [phone] | | | | | | | [...]
--- OUTSIDE RECORDS SUMMARY | ~2020-04-30 | XMS | Encounter Summary ---
Demographics + + + | Address | [address] | | | [place] [address] | + + + | Home Phone | | + + + | Preferred Language | Unknown | + + + | Marital Status | | + + + | Congregation Affiliation | 1013 | + + + | Race | Unknown | + + + | Ethnic Group | Unknown | + + + Author + + + | Author | [facility] | | | and [place] | + + + | Organization | [facility] | | | [...] Team Providers + +------+ + | Care Guardian Ad Litem Name | Role | Phone | + +------+ + PCP | Unavailable | + +------+ + Reason for Visit + +--------+ + | Reason | Onset | Comments | | | Date | | + +--------+ + | Medication Refill | 05/26/ | | | | 2013 | | + +--------+ + Encounter Details +--------+--------+ + + + | Date | Type | Department | Care Team | Description | +--------+--------+ + + + | 05/26/ | Refill | [facility] [place] | Juan Paris | Medication Refill | | 2013 | | NEPHROLOGY [address] | M, DO [address] | | | | | [address] | [address] [place] | | | | | [place], [place] | [place] [address] | | | | | [address] | [phone] | | | | | [phone] | | | +--------+--------+ + + + [...] | | | | | | [place] [address] | | | | | | [phone] | | | | | | | | +--------+ + + + + | 07/23/ | Office | Pulmonology | Jt Roman | | | 2019 | Visit | | Tony Edwards MD [address] | | | | | [address] | | | | | | [place] [address] | | | | | | [phone] | | | | | | | | +--------+ + + + + documented as of this encounter Visit Diagnoses Not on filedocumented in this encounter"
--- OUTSIDE RECORDS SUMMARY | ~2020-04-30 | XMS | Encounter Summary ---
Demographics + + + | Address | [address] | | | [place] [address] | + + + | Home Phone | | + + + | Preferred Language | Unknown | + + + | Marital Status | | + + + | Cheondoism Affiliation | 1013 | + + + | Race | Unknown | + + + | Ethnic Group | Unknown | + + + Author + + + | Author | [facility] | | | and [place] | + + + | Organization | [facility] [...] Team Providers + +------+ + | Care Aircrewman Name | Role | Phone | + +------+ + | Meme Burgos MD | PCP | | + +------+ + Encounter Details +--------+ + + + + | Date | Type | Department | Care Team | Description | +--------+ + + + + | 05/22/ | Abstract | [facility] [place] | Juan Paris | | | 2019 | | NEPHROLOGY [address] | M, DO [address] | | | | | [address] | [address] [place] | | | | | [place] | [place] [address] | | | | | [address] | [phone] | | | | | [phone] | | | +--------+ + + + [...] [place] | | | | | | [place] [address] | | | | | | [phone] | | | | | | | | +--------+ + + + + | 07/23/ | Office | Pulmonology | Jt Roman | | | 2019 | Visit | | Tony Edwards MD [address] | | | | | [address] | | | | | | [place] [address] | | | | | | [phone] | | | | | | | | +--------+ + + + + documented as of this encounter Procedures + +--------+ + + + | Procedure Name | Priori | Date/Time | Associated Diagnosis | Comments | | | ty | | | | + +--------+ + + + | EXTERNAL LAB: BUN | Routin | 05/22/2019 | | Results [...] | EXTERNAL LAB: ALT | Routin | 05/22/2019 | | Results for this | | | e | | | procedure are in the | | | | | | results section. | + +--------+ + + + | EXTERNAL LAB: AST | Routin | 05/22/2019 | | Results [...] | EXTERNAL LAB: CARBON | Routin | 05/22/2019 | | Results [...] | EXTERNAL LAB: SODIUM | Routin | 05/22/2019 | | Results [...] | EXTERNAL LAB: SHANNAN | Routin | 05/22/2019 | | Results [...] | EXTERNAL LAB: MINE | Routin | 05/22/2019 | | Results [...] | EXTERNAL LAB: EGFR | Routin | 05/22/2019 | | Results [...] + | HEMOGLOBIN A1C | Routin | 05/22/2019 | | Results for this | | | e | | | procedure are in the | | | | | | results section. | + +--------+ + + + documented in this encounter Results External Lab: Protein/Creatinine Ratio (05/22/2019) + +-------+ + + + | Component | Value | Ref Range | Performed | Pathologist | | | | | At | Signature | + +-------+ + + + | Protein/Cre | 0.123 | 0.2 | | | | atinine | | | | | | Ratio, | | | | | | External | | | | | + +-------+ + + + + + | Specimen | + + | | + + External Lab: PTH, Intact (05/22/2019) + +-------+ + + + | Component | Value | Ref Range | Performed | Pathologist | | | | | At | Signature | + +-------+ + + + | PTH Intact, | 41.51 | 12 - 88 | | | | External | | | | | + +-------+ + + + + + | Specimen | + + | | + + Hemoglobin A1C (05/22/2019) + +-------+ + + + | Component | Value | Ref Range | Performed | Pathologist | | | | | At | Signature | + +-------+ + + + | Hemoglobin | 6.2 | % | EXTERNAL | | | [...] + +---------+ + + External Lab: BUN (05/22/2019) + +-------+ + + + | Component | Value | Ref Range | Performed | Pathologist | | | | | At | Signature | + +-------+ + + + | BUN, | 14 | | EXTERNAL | | | External | | | LAB | | + +-------+ + + + + +---------+ + + | Performing | Address | City/State/Zipcode | Phone Number | | Organization | | | | + +---------+ + + | EXTERNAL LAB | | | | + +---------+ + + External Lab: Glucose (05/22/2019) + +-------+ + + + | Component | Value | Ref Range | Performed | Pathologist | | | | | At | Signature | + +-------+ + + + | Glucose, | 117 | | EXTERNAL | | | External | | | LAB | | + +-------+ + + + + +---------+ + + | Performing | Address | City/State/Zipcode | Phone Number | | Organization | | | | + +---------+ + + | EXTERNAL LAB | | | | + +---------+ + + External Lab: ALT (05/22/2019) + +-------+ + + + | [...] + +---------+ + + External Lab: AST (05/22/2019) + +-------+ + + + | Component | Value | Ref Range | Performed | Pathologist | | | | | At | Signature | + +-------+ + + + | AST, | 13 | | EXTERNAL | | | External | | | LAB | | + +-------+ + + + + +---------+ + + | Performing | Address | City/State/Zipcode | Phone Number | | Organization | | | | + +---------+ + + | EXTERNAL LAB | | | | + +---------+ + + External Lab: Alkaline Phosphatase (05/22/2019) + +-------+ + + + | Component | Value | Ref Range | Performed | Pathologist | | | | | At | Signature | + +-------+ + + + | ALP, | 53 | | EXTERNAL | | | External | | | LAB | | + +-------+ + + + + +---------+ + + | Performing | Address | City/State/Zipcode | Phone Number | | Organization | | | | + +---------+ + + | EXTERNAL LAB | | | | + +---------+ + + External Lab: Bilirubin, Total (05/22/2019) + +-------+ + + + | [...] + +---------+ + + External Lab: Albumin (05/22/2019) + +-------+ + + + | Component | Value | Ref Range | Performed | Pathologist | | | | | At | Signature | + +-------+ + + + | Albumin, | 4.0 | | EXTERNAL | | | External | | | LAB | | + +-------+ + + + + +---------+ + + | Performing | Address | City/State/Zipcode | Phone Number | | Organization | | | | + +---------+ + + | EXTERNAL LAB | | | | + +---------+ + + External Lab: Protein, Total (05/22/2019) + +-------+ + + + | Component | Value | Ref Range | Performed | Pathologist | | | | | At | Signature | + +-------+ + + + | Protein, | 5.7 | | EXTERNAL | | | Total, | | | LAB | | | External | | | | | + +-------+ + + + + +---------+ + + | Performing | Address | City/State/Zipcode | Phone Number | | Organization | | | | + +---------+ + + | EXTERNAL LAB | | | | + +---------+ + + External Lab: Phosphorus (05/22/2019) + +-------+ + + + | Component | Value | Ref Range | Performed | Pathologist | | | | | At | Signature | + +-------+ + + + | Phosphorus, | 3.1 | | EXTERNAL | | | External | | | LAB | | + +-------+ + + + + +---------+ + + | Performing | Address | City/State/Zipcode | Phone Number | | Organization | | | | + +---------+ + + | EXTERNAL LAB | | | | + +---------+ + + External Lab: Calcium (05/22/2019) + +-------+ + + + | [...] +---------+ + + External Lab: Carbon Dioxide (05/22/2019) + +-------+ + + + | Component | Value | Ref Range | Performed | Pathologist | | | | | At | Signature | + +-------+ + + + | Carbon | 25 | | EXTERNAL | | | Dioxide, | | | LAB | | | External | | | | | + +-------+ + + + + +---------+ + + | Performing | Address | City/State/Zipcode | Phone Number | | Organization | | | | + +---------+ + + | EXTERNAL LAB | | | | + +---------+ + + External Lab: Chloride (05/22/2019) + +-------+ + + + | [...] + +---------+ + + External Lab: Potassium (05/22/2019) + +-------+ + + + | Component | Value | Ref Range | Performed | Pathologist | | | | | At | Signature | + +-------+ + + + | Potassium, | 4.4 | | EXTERNAL | | | External | | | LAB | | + +-------+ + + + + +---------+ + + | Performing | Address | City/State/Zipcode | Phone Number | | Organization | | | | + +---------+ + + | EXTERNAL LAB | | | | + +---------+ + + External Lab: Sodium (05/22/2019) + +-------+ + + + | Component | Value | Ref Range | Performed | Pathologist | | | | | At | Signature | + +-------+ + + + | Sodium, | 141 | | EXTERNAL | | | External | | | LAB | | + +-------+ + + + + +---------+ + + | Performing | Address | City/State/Zipcode | Phone Number | | Organization | | | | + +---------+ + + | EXTERNAL LAB | | | | + +---------+ + + External Lab: Vitamin D, 25-Hydroxy (05/22/2019) + +-------+ + + + | Component | Value | Ref Range | Performed | Pathologist | | | | | At | Signature | + +-------+ + + + | Vitamin D, | 38 | | EXTERNAL | | | 25-Hydroxy, [...] + +---------+ + + External Lab: CBC (05/22/2019) + +-------+ + + + | Component | Value | Ref Range | Performed | Pathologist | | | | | At | Signature | + +-------+ + + + | WBC, | 8.5 | | EXTERNAL | | | External | | | LAB | | + +-------+ + + + | HGB, | 14.4 | | EXTERNAL | | | External | | | LAB | | + +-------+ + + + | HCT, | 43.3 | | EXTERNAL | | | External | | | LAB | | + +-------+ + + + | PLT, | 213 | | EXTERNAL | | | External | | | LAB | | + +-------+ + + + | RBC, | 4.74 | | EXTERNAL | | | External | | | LAB | | + +-------+ + + + | MCV, | 91 | | EXTERNAL | | | External | | | LAB | | + +-------+ + + + | RDW, | 14.2 | | EXTERNAL | | | External | | | LAB | | + +-------+ + + + + +---------+ + + | Performing | Address | City/State/Zipcode | Phone Number | | Organization | | | | + +---------+ + + | EXTERNAL LAB | | | | + +---------+ + + External Lab: Triglycerides (05/22/2019) + +-------+ + + + | Component | Value | Ref Range | Performed | Pathologist | | | | | At | Signature | + +-------+ + + + | Triglycerid | 63 | | EXTERNAL | | | es, [...] +---------+ + + External Lab: Cholesterol, HDL (05/22/2019) + +-------+ + + + | Component | Value | Ref Range | Performed | Pathologist | | | | | At | Signature | + +-------+ + + + | HDL | 64.1 | mg/dl | EXTERNAL | | | [...] +---------+ + + External Lab: Cholesterol, Total (05/22/2019) + +-------+ + + + | Component | Value | Ref Range | Performed | Pathologist | | | | | At | Signature | + +-------+ + + + | Cholesterol | 140 | mg/dl | EXTERNAL | | | [...] +---------+ + + External Lab: Cholesterol, LDL (05/22/2019) + +-------+ + + + | Component | Value | Ref Range | Performed | Pathologist | | | | | At | Signature | + +-------+ + + + | LDL | 63 | | EXTERNAL | | | Cholesterol [...] + +---------+ + + External Lab: eGFR (05/22/2019) + +-------+ + + + | Component | Value | Ref Range | Performed | Pathologist | | | | | At | Signature | + +-------+ + + + | eGFR, | 71 | | EXTERNAL | | | External [...] + +---------+ + + External Lab: Creatinine (05/22/2019) + +-------+ + + + | Component | Value | Ref Range | Performed | Pathologist | | | | | At | Signature | + +-------+ + + + | Creatinine, | 1.04 | | EXTERNAL | | | External [...]
--- OUTSIDE RECORDS SUMMARY | ~2020-04-30 | XMS | Encounter Summary ---
Demographics + + + | Address | [address] | | | [place] [address] | + + + | Home Phone [...] Team Providers + +------+ + | Care Electrical Appliance Preparer Name | Role | Phone | + +------+ + PCP | Unavailable | + +------+ + Encounter Details +--------+ + + + + | Date | Type | Department | Care Team | Description | +--------+ + + + + | 01/09/ | Abstract | [facility] [place] | Juan Paris | | | 2015 | | NEPHROLOGY [address] | M, DO [address] | | | | | [address] | [address] [place] | | | | | [place] | [place] [address] | | | | | [address] | [phone] | | | | | [phone] | | | +--------+ + + + [...] [place] | | | | | | [place] [address] | | | | | | [phone] | | | | | | | | +--------+ + + + + | 07/23/ | Office | Pulmonology | Jt Roman | | | 2019 | Visit | | Tony Edwards MD [address] | | | | | [address] | | | | | | [place] [address] | | | | | | [phone] | | | | | | | | +--------+ + + + + documented as of this encounter Procedures + +--------+ + + + | Procedure Name | Priori | Date/Time | Associated Diagnosis | Comments | | | ty | | | | + +--------+ + + + | EXTERNAL LAB: | Routin | 01/06/2016 | | Results for this | | PROTEIN, URINE, 24HR | e | | | procedure are in the | | | | | | results section. | + +--------+ + + + | CREATININE | Routin | 01/06/2016 | | Results for this | | CLEARANCE, RESULT | e | | | procedure are in the | | | | | | results section. | + +--------+ + + + documented in this encounter Results Creatinine Clearance, Result (01/06/2016) + + + + + + | Component | Value | Ref Range | Performed | Pathologist | | | | | At | Signature | + + + + + + | CREATININE | 69.0 (A) | 97.0 - 137.0 | [facility] | | | [facility] | | mL/min | [facility] | | | [facility] | | | [facility] - | | | | | | [facility]ATORY | | + + + + + + | 24H Urine | 1,400 | mL | [facility] | | | [...] ST. | [address] | [place] | [phone] | | [facility] | | [address] | | | - LABORATORY | | | | + + + + + External Lab: Protein, Urine, 24Hr (01/06/2016) + + + + + + | Component | Value | Ref Range | Performed | Pathologist | | | | | At | Signature | + + + + + + | Protein, | 1,078 (A) | 150 | EXTERNAL | | [...]
--- OUTSIDE RECORDS SUMMARY | ~2020-04-30 | XMS | Encounter Summary ---
Demographics + + + | Address | [address] | | | [place] [address] | + + + | Home Phone | | + + + | Preferred Language | Unknown | + + + | Marital Status | | + + + | Sabianist Affiliation | 1013 | + + + | Race | Unknown | + + + | Ethnic Group | Unknown | + + + Author + + + | Author | [facility] | | | and [place] | + + + | Organization | [facility] | | | and [...] Team Providers + +------+ + | Care Casting Machine Operator Helper Name | Role | Phone | + +------+ + PCP | Unavailable | + +------+ + Reason for Visit + +--------+ + | Reason | Onset | Comments | | | Date | | + +--------+ + | Medication Refill | 08/05/ | | | | 2011 | | + +--------+ + Encounter Details +--------+--------+ + + + | Date | Type | Department | Care Team | Description | +--------+--------+ + + + | 08/05/ | Refill | [facility] [place] | Juan Paris | Medication Refill | | 2011 | | NEPHROLOGY [address] | M, DO [address] | | | | | [address] | [address] [place] | | | | | [place], [place] | [place] [address] | | | | | [address] | [phone] | | | | | [phone] | | | +--------+--------+ + + + [...] [address] | | | | | | [place] [address] | | | | | | [phone] | | | | | | | | +--------+ + + + + | 07/23/ | Office | Pulmonology | Jt Roman | | 2019 | Visit | | Tony Edwards MD [address] | | | [address] | [address] | | | | | | [place] [address] | | | | | | [phone] | | | | | | | | +--------+ + + + + documented as of this encounter Visit Diagnoses Not on filedocumented in this encounter"
--- OUTSIDE RECORDS SUMMARY | ~2020-04-30 | XMS | Encounter Summary ---
Demographics + + + | Address | [address] | | | [place] [address] | + + + | Home Phone | | + + + | Preferred Language | Unknown | + + + | Marital Status | | + + + | Restorationist Affiliation | 1013 | + + + | Race | Unknown | + + + | Ethnic Group | Unknown | + + + Author + + + | Author | [facility] | | | and [place] | + + + | Organization | [facility] | [...] Team Providers + +------+ + | Care Conduit Mechanic Name | Role | Phone | + +------+ + PCP | Unavailable | + +------+ + Reason for Visit + +--------+ + | Reason | Onset | Comments | | | Date | | + +--------+ + | Medication Refill | 07/27/ | | | | 2013 | | + +--------+ + Encounter Details +--------+--------+ + + + | Date | Type | Department | Care Team | Description | +--------+--------+ + + + | 07/27/ | Refill | [facility] [place] | Juan Paris | Medication Refill | | 2013 | | NEPHROLOGY [address] | M, DO [address] | | | | | [address] | [address] [place] | | | | | [place], [place] | [place] [address] | | | | | [address] | [phone] | | | | | [phone] | | | +--------+--------+ + + + [...] | | | | | [place] [address] | | | | | | [phone] | | | | | | | | +--------+ + + + + | 07/23/ | Office | Pulmonology | Jt Roman | | | 2019 | Visit | | Tony Edwards MD [address] | | [address] | | | | | | [place] [address] | | | | | | [phone] | | | | | | | | +--------+ + + + + documented as of this encounter Visit Diagnoses Not on filedocumented in this encounter"
--- OUTSIDE RECORDS SUMMARY | ~2020-04-30 | XMS | Encounter Summary ---
Demographics + + + | Address | [address] | | | [place] [address] | + + + | Home Phone [...] Team Providers + +------+ + | Care Car Repair Supervisor Name | Role | Phone | + +------+ + PCP | Unavailable | + +------+ + Encounter Details +--------+ + + + + | Date | Type | Department | Care Team | Description | +--------+ + + + + | 03/17/ | Abstract | [facility] | Juan Paris | | | 2012 | | NEPHROLOGY [address] | M, DO [address] | | | | | [address] | [address] | | | | | [place] | [place] [address] | | | | | [address] | [phone] | | | | | [phone] | | | +--------+ + + + [...] [place] | | | | | | [place] [address] | | | | | | [phone] | | | | | | | | +--------+ + + + + | 07/23/ | Office | Pulmonology | Jt Roman | | | 2019 | Visit | | Tony Edwards MD [address] | | | | | | [address] | | | | | | [place] [address] | | | | | | [phone] | | | | | | | | +--------+ + + + + documented as of this encounter Procedures + +--------+ + + + | Procedure Name | Priori | Date/Time | Associated Diagnosis | Comments | | | ty | | | | + +--------+ + + + | CMP14+LP+CBC/D/PLT+T | Routin | 03/04/2013 | | Results for this | | SH+UA/M (NON ORD) | e | | | procedure are in the | | | | | | results section. | + +--------+ + + + documented in this encounter Results CMP14+LP+CBC/D/Plt+TSH+UA/M (03/04/2013) + + + + + + | Component | Value | Ref Range | Performed | Pathologist | | | | | At | Signature | + + + + + + | Na | 142 | mmol/L | | | + + + + + + | K | 4.3 | mmol/L | | | + + + + + + | Cl | 109 | mmol/L | | | + + + + + + | CO2 | 28 | mmol/L | | | + + + + + + | BUN | 19 | mg/dL | | | + + + + + + | CREA | 1.0 | mg/dL | | | + + + + + + | Glucose | 113 | mg/dL | | | + + + + + + | Calcium | 9.5 | mg/dL | | | + + + + + + | Hemoglobin | 6.0 | | | | | A1c | | | | | + + + + + + | PTH INTACT | 9.5 | pg/mL | | | + + + + + + | Phosphorus | 3.2 | 2.1 - 3.9 mg/dL | | | + + + + + + | Cholesterol | 159 | mg/dL | | | + + + + + + | HDL | 66 | mg/dL | | | + + + + + + | LDL | 82 | | | | | Cholesterol | | | | | + + + + + + | Triglycerid | 57 | | | | | es | | | | | + + + + + + | Uric Acid | 8.0 | mg/dL | | | + + + + + + | White Blood | 8.2 | K/uL | | | | Cells | | | | | + + + + + + | Hemoglobin | 15.3 | 13.2 - 17.0 | | | | | | g/dL | | | + + + + + + | Hematocrit | 45.3 | 39.0 - 50.0 % | | | + + + + + + | Platelet | 194 | 150 - 400 K/uL | | | | Count | | | | | + + + + + + | MCV | 93.8 | 80.0 - 100.0 fL | | | + + + + + + | Bilirubin | 1.2 | 0.1 - 1.5 mg/dL | | | | Total | | | | | + + + + + + | AST | 10 | 10 - 45 U/L | | | + + + + + + | ALT | 15 | U/L | | | + + + + + + | Alkaline | 58 | 35 - 115 U/L | | | | Phosphatase | | | | | + + + + + + | Albumin | 4.1 | 3.3 - 4.8 g/dL | | | + + + + + + | TSH | 1.68 | uIU/mL | | | + + + + + + | PSA | 1.00 | ng/mL | | | + + + + + + | CREATININE | 87.0 (A) | 97.0 - 137.0 | | | | CLEARANCE | | mL/min | | | + + + + + + | Estimated | 60.0 | mL/min/1.73m2 | | | | GFR | | | | | + + + + + + | PROTEIN, | 662.0 | mg/24hrs | | | | 24HR URINE | | | | | + + + + + + + + | Specimen | + + | | + + documented in this encounter Visit Diagnoses Not on filedocumented in this encounter"
--- OUTSIDE RECORDS SUMMARY | ~2020-04-30 | XMS | Encounter Summary ---
Demographics + + + | Address | [address] | | | [place] [address] | + + + | Home Phone | | + + + | Preferred Language | Unknown | + + + | Marital Status | | + + + | Roman Catholic Affiliation | 1013 | + + + | Race | Unknown | + + + | Ethnic Group | Unknown | + + + Author + + + | Author | [facility] | | | and [place] | + + + | Organization | [facility] | | | [...] Team Providers + +------+ + | Care Valving Machine Operator Name | Role | Phone | + +------+ + PCP | Unavailable | + +------+ + Reason for Visit Service/Procedure (Routine) +--------+--------+ + + + + [...] glomerulonep | DO [address] | | | | | hritis | [address] | [place], | | | | | Procedures | [address] | [place] [address] | | | | | [place] RITUXIMAB | [place], | Phone: | | | | | INJECTION, | [place] [address] | [phone] | | | | | 100 MG | Phone: | Fax: | | | | | | [phone] | [phone] | | | | | | Fax: | | | | | | | [phone] | | +--------+--------+ + + + + Encounter Details +--------+ + + + + | Date | Type | Department | Care Team | Description | +--------+ + + + + | 03/14/ | Hospital | [facility] | Juan Paris | 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, DO [address] | glomerulonephritis | | | | [address] | [address] | | | | | [place], [place] | [place] [address] | | | | | [address] | [phone] | | | | | [phone] | | | +--------+ + + + [...] + + + | Blood Pressure | 135/65 | 03/14/2016 7:30 PM | | | | | PDT | | + + + + + | Pulse | 77 | 03/14/2016 7:30 PM | | | | | PDT | | + + + + + | Temperature | 37.1 C (98.8 F) | 03/14/2016 7:30 PM | | | | | PDT | | + + + + + | Respiratory Rate | 16 | 03/14/2016 7:30 PM | | | | | PDT | | + + + + + | Oxygen Saturation | 94% | 03/14/2016 7:30 PM | | | | | PDT | | + + + + + | Inhaled Oxygen | - | - | | | Concentration | | | | + + + + + | Weight | 93.4 kg (206 lb) | 03/14/2016 2:40 PM | | | | | PDT | | + + + + + | Height | - | - | | + + + + + | Body Mass Index | 29.56 | 10/14/2015 11:14 AM | | | | | PST | | + + + + + documented in this encounter Discharge Instructions Patient Instructions Chance Whatley RN - 03/14/2016 12:08 PM PDTIf you experience any re actions from the infusion, such as rash, swelling or soreness, contact your physician. 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 I stopped the infusion and ran NS and gave Demerol per order. Patient covered with warm blankets. When the chills resolved, I resumed the infusion and there were no furth er c/o. Instructed to call MD if he develops any s/s of reaction. Handout provided on [facility]. documented in th is encounter Plan of [...] [address] | | | | | | [place] [address] | | | | | | [phone] | | | | | | | | +--------+ + + + + | 07/23/ | Office | Pulmonology | Jt Roman | | | 2019 | Visit | | Tony Edwards MD [address] | | | | | | [address] | | | | | | [place] [address] | | | | | | [phone] | | | | | | | [...] | acetaminophen (TYLENOL) tablet | Given | 03/14/20 | 650 mg | | | | 650 mg 650 mg, Oral, ONCE, e | | 16 2:13 | | | | | 03/14/16 at 1405, For 1 dose | | PM PDT | | | | + +--------+ +--------+------+------+ +---+---+ | | | +---+---+ + +-------+ +-------+---+---+ | diphenhydrAMINE (BENADRYL) | Given | 03/14/20 | 25 mg | | | | tablet 25 mg 25 mg, Oral, ONCE, | | 16 2:12 | | | | | 03/14/16 at 1405, For 1 dose | | PM PDT | | | | + +-------+ +-------+---+---+ +---+---+ | | | +---+---+ + +-------+ +-------+---+---+ | meperidine (DEMEROL) injection | Given | 03/14/20 | 25 mg | | | | 25 mg 25 mg, Intravenous, ONCE | | 16 5:30 | | | | | Elvis KIRK, Starting Sun03/14/16 | | PM PDT | | | | | at 1714, For 1 dose, Prn elvis, | | | | | | | | | | | | | + +-------+ +-------+---+---+ +---+---+ | | | +---+---+ + +---------+ + +---+---+ | riTUXimab (RITUXAN) 1,000 mg in | New Bag | 03/14/20 | 1,000 mg | | | | sodium chloride 0.9% 1,000 mL | | 16 2:30 | | | | | infusion 1,000 mg, Intravenous, | | PM PDT | | | | | ONCE, 03/14/16 at 1430, For 1 | | | | | [...]
--- OUTSIDE RECORDS SUMMARY | ~2020-04-30 | XMS | Encounter Summary ---
Demographics + + + | Address | [address] | | | [place] [address] | + + + | Home Phone | | + + + | Preferred Language | Unknown | + + + | Marital Status | | + + + | Buddhism Affiliation | 1013 | + + + | Race | Unknown | + + + | Ethnic Group | Unknown | + + + Author + + + | Author | [facility] | | | and [place] | + + + | Organization | [facility] | | | [...] Team Providers + +------+ + | Care Erisa Attorney Name | Role | Phone | + +------+ + PCP | Unavailable | + +------+ + Encounter Details +--------+ + + + + | Date | Type | Department | Care Team | Description | +--------+ + + + + | 08/16/ | Abstract | [facility] | Juan Paris | | | 2016 | | NEPHROLOGY [address] | M, DO [address] | | | | | [address] | [address] | | | | | [place] | [place] [address] | | | | | [address] | [phone] | | | | | [phone] | | | +--------+ + + + [...] documented as of this encounter Progress Notes Elba Redmond - 08/16/2017 8:45 AM PSTOutside records: Progress note from Heron miller MD DOS 08-14-17. Sent to [facility]. documented in this encounter Plan of Treatment [...] [address] | | | | | | [place] [address] | | | | | | [phone] | | | | | | | | +--------+ + + + + | 07/23/ | Office | Pulmonology | Jt Roman | | | 2019 | Visit | | Tony Edwards MD [address] | | | | | [address] | | | | | | [place] [address] | | | | | | [phone] | | | | | | | | +--------+ + + + + documented as of this encounter Visit Diagnoses Not on filedocumented in this encounter"
--- OUTSIDE RECORDS SUMMARY | ~2020-04-30 | XMS | Encounter Summary ---
Demographics + + + | Address | [address] | | | [place] [address] | + + + | Home Phone | | + + + | Preferred Language | Unknown | + + + | Marital Status | | + + + | Jew Affiliation | 1013 | + + + | Race | Unknown | + + + | Ethnic Group | Unknown | + + + Author + + + | Author | [facility] | | | and [place] | + + + | Organization | [facility] | | [...] Team Providers + +------+ + | Care Dispatch Clerk Name | Role | Phone | + +------+ + | Meme Burgos MD | PCP | | + +------+ + Reason for Visit + + + | Reason | Comments | + + + | Follow-up | | + + + | Emphysema | | + + + Encounter Details +--------+---------+ + + + | Date | Type | Department | Care Team | Description | +--------+---------+ + + + | 10/29/ | Office | [facility] | Jt Roman | COPD, severe (HCC) | | 2020 | Visit | PULMONOLOGY [address] | Tony Edwards MD [address] | (Primary Dx); | | | | [address] | [address] | Moderate persistent | | | | [place], [place] | [place] [address] | asthma without | | | | [address] | [phone] | complication; | | | | [phone] | | Nocturnal hypoxemia | +--------+---------+ + [...] + + + | Blood Pressure | 113/62 | 10/29/2019 10:48 AM | | | | | PST | | + + + + + | Pulse | 79 | 10/29/2019 10:48 AM | | | | | PST | | + + + + + | Temperature | 36.3 C (97.4 F) | 10/29/2019 10:48 AM | | | | | PST | | + + + + + | Respiratory Rate | - | - | | + + + + + | Oxygen Saturation | 94% | 10/29/2019 10:48 AM | | | | | PST | | + + + + + | Inhaled Oxygen | - | - | | | Concentration | | | | + + + + + | Weight | - | - | | + + + + + | Height | 182.9 cm (6') | 10/29/2019 10:48 AM | | | | | PST | | + + + + + | Body Mass Index | - | - | | + + + + + documented in this encounter Progress Notes Jt Roman MD - 10/29/2019 10:45 AM PSTFormatting of this note might be dif ferent from the original. [facility] PULMONOLOGY [address] [place] [id number] HISTORY: Chief Complaint: I have been asked [...] he recently had [facility] [place] about 6 months ago and was told maria guadalupe diamond had severe COPD. He has also had a CT scan of the chest in 01/2016 showing severe upper l obe predominant emphysema. It seems that he was having trouble with a COPD exacerbation [facility] the winter and a month ago. Last month, he went to [facility] and was seen at the ED. [...] on this during the daytime also but h is sats recently. Regarding inhalers, he is on Asmanex and Anoro Ellipta. He has a davidson karan inhaler and uses this once a day on average. He has nebulized albuterol but has not re quired this in the past few weeks. 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 He was previously followed by Dr. Rivera in [place]. Interval history: Sierra is here for follow up for very severe COPD. He took the prednisone which helped his s ymptoms but after coming off his productive cough and dyspnea worsens again. He says he can only take about 7 steps before getting winded. He continues his usual inhalers w/o any iss ues. Review of Systems Constitutional: Negative. Negative for [...] bronchitis (HCC) COPD (chronic obstructive pulmonary disease) ([facility]) Gold III 12/18/09 COPD (chronic obstructive pulmonary [...] SURGICAL HISTORY great toe bilateral SINUS SURGERY 2003 SINUS SURGERY TONSILLECTOMY AND ADENOIDECTOMY 1953 Current [...] mouth daily. cephalexin (KEFLEX) 500 mg capsule (Taking) Take 500 mg by mouth 4 (four) times daily. cholecalciferol (VITAMIN D-3) 400 units capsule (Taking) Take by mouth daily. citalopram (CELEXA) 10 mg tablet (Taking) Take 10 mg by mouth daily. fish oil 1,000 mg capsule (Taking) Take 500 mg by mouth daily. furosemide (LASIX) 40 mg tablet (Taking) Take 1 tablet by mouth Daily. Green [...] 50 mg by mouth nightly. Multiple Vitamins-Minerals (ALIVE MENS ENERGY PO) (Taking) Take 1 tablet by mouth Daily. Multiple Vitamins-Minerals (B COMPLEX PLUS VITAMIN C PO) (Taking) Take 1 tablet by mouth D aily. omeprazole (PRILOSEC) 20 mg capsule (Taking) Take one capsule by mouth once daily on an em pty stomach predniSONE (DELTASONE) 20 mg tablet (Taking) Take 2 tabs daily for 5 days, then 1 tab susanne y for 5 days then STOP. promethazine-codeine (PHENERGAN WITH CODEINE) 6.25-10 mg/5 mL syrup (Taking) Take 5 mLs by mouth. 1-3 tsp q 3-8 hrs prn Indications: Cough simvastatin (ZOCOR) 20 mg tablet (Taking) Take 1 tablet by mouth Daily. tamsulosin (FLOMAX) 0.4 mg CAPS (Taking) Take 0.4 mg by mouth every evening. Take 2 tabs n ightly tiotropium (SPIRIVA HANDIHALER) 18 mcg inhalation capsule (Taking) Inhale contents of one capsule once daily (do not swallow capsules) tiotropium (SPIRIVA) 18 mcg inhalation capsule (Taking) [...] Last attempt to quit: 09/29/2015 Years since quittin.0 Smokeless tobacco: Former User Types: Chew Quit [...] file Gets together: Not on file Attends taoism service: Not on file Active member of [...] Mother Diabetes Brother PHYSICAL EXAMINATION: Vital Signs: There were no vitals filed for this visit. Weight: Wt Readings from Last 2 Encounters: 07/18/19 87.5 kg (193 lb) 05/26/19 86 kg (189 lb 8 oz) .lastwt BMI: There is no height or weight on file to calculate BMI. Physical Exam Constitutional: He is well-developed, well-nourished, [...] is moderately reduced. ASSESSMENT AND PLAN: A> 69 y.o. male with COPD, emphysema, in a former smoker P> 1. COPD - the patient has COPD with emphysema and asthma overlap. - not in exacerbation but still with severe dyspnea on exertion and chronic productive coug h - he did improve with prednisone but worsens off of it. I recommended placing him on detention oral steroids. Will place on prednisone 10mg PO daily. Will re-evaluate at the next v isit if we can reduce further to 5mg daily - continue symbicort 160/4.5 2 puff BID - continue albuterol inh and nebs PRN for wheezing or dyspnea - continue singulair 10 daily - will follow up on pulm rehab referral that was sent to [facility] 2. Chronic nocturnal hypoxemia - continue 2LPM O2 at night. 3. Chronic/recurrent sinusitis - follows with ENT The patient will follow up with me in 2 months Jt Roman MD Pulmonary and Critical Care Medicine [facility] Pulmonology documented in this encounter Plan of Treatment +--------+ + + + + | Date | Type | Specialty | Care Team | Description | +--------+ + + + + | 05/24/ | Off-Site | Nephrology | Juan Paris | | | 2019 | Visit | | DO Nisreen [address] | | | | | | [address] | | | | | | [place] [address] | | | | | | [phone] | | | | | | | | +--------+ + + + + | 07/23/ | Office | Pulmonology | Jt Roman | | | 2019 | Visit | | Tony Edwards MD [address] | | | [address] | | | | | | [place] [address] | | | | | | [phone] | | | | | | | [...]
--- OUTSIDE RECORDS SUMMARY | ~2020-04-30 | XMS | Encounter Summary ---
Demographics + + + | Address | [address] | | | [place] [address] | + + + | Home Phone [...] Team Providers + +------+ + | Care Airplane Cabin Attendant Name | Role | Phone | [...] | | [place] | [place] [address] | | | | | [address] | [phone] | | | | | [phone] | | | +--------+ + + + [...] this encounter Progress Naida Sandoval RN - 02/21/2016 2:19 PM PDTInterpath 03/20/16 documented in this encounter Plan of Treatment [...] [address] | | | | | | [place] [address] | | | | | | [phone] | | | | | | | | +--------+ + + + + | 07/23/ | Office | Pulmonology | Jt Roman | | | 2019 | Visit | | Tony Edwards MD [address] | | | | | [address] | | | | | | [place] [address] | | | | | | [phone] | | | | | | | | +--------+ + + + + documented as of this encounter Visit Diagnoses + + | Diagnosis | + + | 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
--- OUTSIDE RECORDS SUMMARY | ~2020-04-30 | XMS | Encounter Summary ---
Demographics + + + | Address | [address] | | | [place] [address] | + + + | Home Phone [...] Team Providers + +------+ + | Care Certified Pedorthotist Name | Role | Phone | + [...] | | | | Procedures | | [address] | | | | | [place] XCAPSL | | Phone: | | | | | CTRC RMVL | | [phone] | | | | | INSJ IO LENS | | Fax: | | | | | PROSTH W/O | | [phone] | | | | | ECP RIGHT [...] + + | 04/08/ | Hospital | [facility] | Jaun Rivas | | | 2020 | Encounter | MED CTR OR INTRA OP | [address] | | | | | [address] | [place] | | | | | [place] | [place] [address] | | | | | [address] | [phone] | | | | | [phone] | | | +--------+ + + + [...] + + + | Blood Pressure | 138/79 | 04/08/2020 8:30 AM | | | | | PDT | | + + + + + | Pulse | 69 | 04/08/2020 8:30 AM | | | | | PDT | | + + + + + | Temperature | 36.4 C (97.5 F) | 04/08/2020 6:50 AM | | | | | PDT | | + + + + + | Respiratory Rate | 18 | 04/08/2020 8:30 AM | | | | | PDT | | + + + + + | Oxygen Saturation | 97% | 04/08/2020 8:30 AM | | | | | PDT | | + + + + + | Inhaled Oxygen | - | - | | | Concentration | | | | + + + + + | Weight | 88.9 kg (195 lb 15.8 | 04/08/2020 6:50 AM | | | | oz) | PDT | | + + + + + | Height | 182.9 cm (6') | 04/08/2020 6:50 AM | | | | | PDT | | + + + + + | Body Mass Index | 26.58 | 04/08/2020 6:50 AM | | | | | PDT | | + + + + + documented in this encounter Discharge Instructions Jaun Berrios MD - 07/09/2020FOLLOWING SURGERY: Wear the patch and shield until you get home or until your first post-op appointment, if same day. You may then discard the patch, but continue to wear the eye shield as noted jany holguin. Do not drive for at least 24 hours (longer if vision isn't clear enough to be safe) If prescribed the following eyedrops to use after surgery, then use as follows: Prednisolone acetate 1% - Shake well before using. Place 1 drop in your surgery ey e 4 times daily and continue for 1 month after surgery. Ofloxacin 0.3% - Place 1 drop in your surgery eye 4 times daily and continue for 1 week after surgery. Close your eye for 3-5 minutes after each eye drop. If your surgery eye has a dry, irritated, or "foreign body" sensation, you may use cold compresses or preservative free artificial tears (in individual vials) as needed. Drink water to stay well-hydrated and to promote healing. Most people need 8 glasses of water daily. Use your preferred non-prescription pain medicine as needed for mild discomfort. You will have appointments with your eye doctor as scheduled in future weeks/months. Mary Ellen ng any eye drops you are taking to your first post-op appointment. THE FIRST DAYS AFTER SURGERY: The first few days are the most important after eye surgery t o be sure the eye heals well. Listed below are some things you should do or avoid doing: You may bend over, sleep on either side, read, go out to dinner, and resume most of your normal activities. Walking and gentle exercises are OK. Avoid strenuous activity for the first 3 days. Keep your eye clean with gentle lid scrubs and avoid wearing makeup for 3 days. Wear the eye shield for the first 3-4 nights to keep from bumping the eye while you are sleeping. Do not rub your eye. If you have an urge to rub your eye, wear the eye shield and vidya nue using it when sleeping for even the first week after surgery. Avoid dry, artis or dirty environments for at least 3 days. You may shower, but keep you eye dry for 3 days. Avoid dunking your head under water. Avoid splashing your face or dunking your head under water for 3 days. You may shower, k eeping your eye dry. No swimming, water sports, Jacuzzi, spa, or pool for 1 week. EXPECTATIONS: You may experience strange sensations after surgery, such as numbness, halos around lights, blurred and/or double vision. These usually resolve in 2-6 hours. Your visi on will improve over time as your eye heals, but may fluctuate over the first few weeks. Re dness will usually be gone within a few weeks. A mild dry eye sensation may persist for moy e months. IMPORTANT! If you have the following symptoms, immediately call your eye doctor or [facility] at (dial "9" after hours or on weekends): Bleeding or discharge from the eye. Vision suddenly becomes worse. Huge increase in floaters. Flashing lights or a curtain over part of or all of your vision. Severe pain not relieved by the pain reliever you've been instructed to take. Nausea, vomiting, chills, or fever over 100.4. documented in this encounter Medications at Time [...] + +---------+ + + | | Take 3 mLs by | | 0 | | | | albuterol-ipratropiu | nebulization. | | | | | | m 2.5-0.5 mg/3 mL | | | | | | | SOLN | | | | | | + + + +---------+ + + | aspirin 81 MG EC | Take 81 mg by mouth | | 0 | 06/13/20 | | | tablet | Daily. | | | 12 | | + + + +---------+ + + | B Complex Vitamins | Take by mouth | | 0 | | | | (B COMPLEX PO) | daily. | | | | | + + + +---------+ + + | | Inhale two | 1 | 6 | 10/18/20 | | | budesonide-formotero | inhalations by mouth | Inhaler | | 19 | | | l (SYMBICORT) | twice daily | | | | | | 160-4.5 mcg/puff | | | | | | | inhalerIndications: | | | | | | | Centrilobular | | | | | | | emphysema (HCC) | | | | | | + + + +---------+ + + | Calcium | Take 1 tablet by | | 0 | | | | Carb-Cholecalciferol | mouth Daily . | | | | | | 600-800 MG-UNIT | | | | | | | TABS | | | | | | + + + +---------+ + + | calcium, as | Take 600 mg by mouth | | 0 | | | | carbonate, | daily (with | | | | | | (CALTRATE) 600 mg | breakfast). | | | | | | tablet | | | | | | + + + +---------+ + + | cetirizine | Take 10 mg by mouth | | 0 | | | | (ZYRTEC) 10 mg | Daily. | | | | | | tablet | | | | | | + + + +---------+ + + | cholecalciferol | 1,000 Units . | | 0 | | | | (VITAMIN D-3) 400 | | | | | | | units capsule | | | | | | + + + +---------+ + + | citalopram | Take 10 mg by mouth | | 0 | 05/30/20 | | | (CELEXA) 10 mg | daily. | | | 18 | | | tablet | | | | | | + + + +---------+ + + | fish oil 1,000 mg | Take 2,000 mg by | | 0 | | | | capsule | mouth nightly. | | | | | + + + +---------+ + + | Flaxseed, Linseed, | Take 1,000 mg by | | 0 | | | | (FLAX SEED OIL) | mouth Daily. | | | | | | 1000 MG CAPS | | | | | | + + + +---------+ + + | FLUTICASONE | Inhale 50 mg into | | 0 | | | | FUROATE IN | the lungs. | | | | | + + + +---------+ + + | furosemide (LASIX) | Take 1 tablet by | | 0 | 11/30/19 | | | 40 mg | mouth Daily as | | | 20 | | | tabletIndications: | needed. | | | | | | 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, | | | | | | | Essential | | | | | | | hypertension, benign | | | | | | + + + +---------+ + + | glipiZIDE | Take 2.5 mg by mouth | | 0 | | | | (GLUCOTROL XL) 2.5 | daily (with | | | | | | mg 24 hr tablet | breakfast). | | | | | + + [...] + + | losartan (COZAAR) | Take 12.5 mg by | | 0 | | | | 25 mg tablet | mouth nightly . | | | | | + + + +---------+ + + | metFORMIN | Take 500 mg by mouth | | 0 | | | | (GLUCOPHAGE) 500 mg | 4 (four) times | | | | | | tablet | daily. 2 pills AM 2 | | | | | | | pills PM | | | | | + + + +---------+ + + | montelukast | Take 10 mg by mouth | | 0 | | | | (SINGULAIR) 10 mg | Daily. | | | | | | tablet [...] + + + +---------+ + + | predniSONE | take 1 tablet by | 30 | 2 | 02/05/20 | | | (DELTASONE) 10 mg | mouth once daily | tablet | | 20 | | | tabletIndications: | | | [...] + + + +---------+ + + | tiotropium | Inhale 18 mcg into | | 0 | | | | (SPIRIVA) 18 mcg | the lungs daily. | | | | | | inhalation capsule | | | | | | + + + +---------+ + + | ZINC-VITAMIN C PO | Take by mouth Daily. | | 0 | | | + + + +---------+ + + documented as of this encounter H&P Notes Jaun Rivas MD - 04/08/2020 7:45 AM PDTSURGICAL INTERIM HISTORY & PHYSICAL UPDA TE Pt. Name/Age/: Sierra Roman 69 y.o. 1950 Date of admission: 04/08/2020 The current H&P was reviewed. The patient was reexamined. Re-evaluation of the patient co nfirms the necessity for the scheduled procedure. No change has occurred in the patient s condition since the H&P was completed less than 30 days ago. VERIFICATION OF CONSENT (PARQ) The patient was counseled regarding the procedure, its indications, risks, potential compli cations and alternatives. Any questions were answered. Consent was obtained. Electronically signed by: Jaun Rivas MD, 04/08/2020 7:47 AM PDT [facility] inan Pepper RN - 04/04/2020 11:10 AM PDTPRE-PROCEDURE [...] Pain, warm hand transfer to RN inside UC (Room 1 for triage) [] Abdominal Pain [] Nausea [] Vomiting [] Diarrhea [] Change in Sense of Smell and/or Taste Testing Protocol: MA/RN Proceed to testing if ANY of the following conditions are present: DRIVE THRU SWAB SCREENING [x] Asymptomatic, regardless of age, pre-procedure screening only [] Asymptomatic - testing requested by authorized [facility] personnel, [facility] Infection Prevention Nurse or Caregiver Health [...] Social Distancing/Quarantine Guidelines documented in this encounter Miscellaneous Notes Op Note - Jaun Rivas MD - 04/08/2020 8:19 AM PDTPre-op Diagnosis: 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 Two side ports were made and the anterior chamber was filled with viscoelastic. A keratome was used to create t he main wound temporally. Utrata forceps were used for a capsulorhexis. After hydrodissectio n, the lens was phacoemulsified and residual cortex was aspirated. The artificial lens was p laced under viscoelastic which was then removed. The wounds were checked and found to be stefan ertight. Vigamox 0.1cc was placed in the anterior chamber. Triamcinolone 3mg was placed in the subconjunctival space. Pilocarpine 1% drops were placed on the eye. A patch and shield w ere placed over the eye. Postoperative Plan: The patient was sent to recovery in good condition. Complications: none Estimated Blood Loss: none documented in t his encounter Plan of [...] DORIS | | | | | | [place] [address] | | | | | | [phone] | | | | | | | | +--------+ + + + + | 07/23/ | Office | Pulmonology | Jt Roman | | | 2019 | Visit | | Tony Edwards MD [address] | | | | | [address] | | | | | | [place] [address] | | | | | | [phone] | | | | | | | | +--------+ + + + + documented as of this encounter Procedures + +--------+ + + + | Procedure Name | Priori | Date/Time | Associated Diagnosis | Comments | | | ty | | | | + +--------+ + + + | EXTRACTION CATARACT | | 04/08/2020 | Combined forms of | | | W/ OR W/O LENS | | 7:55 AM | age-related | | | IMPLANT | | PDT | cataract, right eye | | + +--------+ + + + | POC GLUCOSE | Routin | 04/08/2020 | | Results for this | | | e | 7:01 AM | | procedure are in the | | | | PDT | | results section. | + +--------+ + + + | CORONAVIRUS | STAT | 04/08/2020 | | Results for this | | (COVID-19) NAAT | | 6:22 AM | | procedure are in the | | | | PDT | | results section. | + +--------+ + + + documented in this encounter Results POC Glucose (04/08/2020 7:01 AM PDT) + +-------+ + + + | Component | Value | Ref Range | Performed | Pathologist | | | | | At | Signature | + +-------+ + + + | Glucose, | 91 | 70 - 109 mg/dL | [facility] | | [facility] | | | [facility] | | | | | | [facility] | | | | | | [facility] - | | | | | | LABORATORY | | + +-------+ + + + + + | Specimen | + + | Blood | + + + + + + + | Performing | Address | City/State/Zipcode | Phone Number | | Organization | | | | + + + + + | [facility] | [address] | [place] | [phone] | | [facility] | | [address] | | | - LABORATORY | | | | + + + + + Coronavirus (COVID-19) NAAT (04/08/2020 6:22 AM PDT) + + + + + + | Component | Value | Ref Range | Performed | Pathologist | | | | | At | Signature | + + + + + + | SARS-CoV-2, | NegativeComment: | Negative | [facility] | | | NAAT | SARS-CoV-2, RNA | | [facility] | | | (COVID-19) | (COVID-19) EUA Negative | | MEDICAL | | | | results, using the | | CENTER - | | | | [facility] Platform, | | LABORATORY | | | | should be treated as | | | | | | presumptive and, if | | | | | | inconsistent with | | | | | | clinical signs and | | | | | | symptoms or necessary | | | | | | for patient management, | | | | | | should be tested with an | | | | | | alternative molecular | | | | | | assay. Please contact | | | | | | the laboratory for | | | | | | assistance as needed. | | | | | | Negative results do not | | | | | | preclude COVID-19 | | | | | | infection and should not | | | | | | be used as the sole | | | | | | basis for patient | | | | | | management decisions. | | | | | | Negative results should | | | | | | be considered in the | | | | | | context of a patient's | | | | | | recent exposures, | | | | | | history, presence of | | | | | | clinical signs and | | | | | | symptoms consistent with | | | | | | COVID-19. This assay | | | | | | has been cleared for use | | | | | | under an FDA Emergency | | | | | | Use Authorization. This | | | | | | test is used for | | | | | | clinical purposes. It | | | | | | should not be regarded | | | | | | as investigational or | | | | | | for research. This | | | | | | laboratory is certified | | | | | | under the Clinical | | | | | | Laboratory Improvement | | | | | | Amendments (CLIA) as | | | | | | qualified to perform | | | | | | high complexity testing. | | | | | | This test has been | | | | | | validated in accordance | | | | | | with the FDA's Guidance | | | | | | Document "Policy for | | | | | | Diagnostics Testing in | | | | | | Laboratories Certified | | | | | | to Perform High | | | | | | Complexity Testing under | | | | | | CLIA prior to Emergency | | | | | | Use Authorization for | | | | | | Coronavirus Disease-2019 | | | | | | during the Public | | | | | | Health Emergency" issued | | | | | | on November 29, 2019. | | | | | | FDA independent review | | | | | | of this validation is | | | | | | pending. This test is | | | | | | only authorized for the | | | | | | duration of time the | | | | | | declaration that | | | | | | circumstances exist | | | | | | justifying the | | | | | | authorization of the | | | | | | emergency use of in | | | | | | vitro diagnostic tests | | | | | | for detection of | | | | | | SARS-CoV-2 virus and/or | | | | | | diagnosis of COVID-19 | | | | | | infection under section | | | | | | 564(b)(1) of the Act, 21 | | | | | | U.S.C. 360bbb-3(b)(1), | | | | | | unless the authorization | | | | | | is terminated or | | | | | | revoked sooner. | | | | + + + + + + + + | Specimen | + + | Tissue - Both | | anterior nares (body | | structure) | + + + + + + + | Performing | Address | City/State/Zipcode | Phone Number | | Organization | | | | + + + + + | [facility] | [address] | [place] | [phone] | | [facility] | | [address] | | | - LABORATORY | | | | + + + + + documented in this encounter Visit Diagnoses Not on filedocumented in this encounter Administered Medications + +--------+---------+------+------+------+ | Medication Order | MAR | Action | Dose | Rate | Site | | | Action | Date | | | | + +--------+---------+------+------+------+ + +---+ | albuterol-ipratropium 2.5-0.5 | | | mg/3 mL nebulizer solution 3 mL | | | 3 mL, Nebulization, ONCE PRN, | | | Wheezing, Starting [facility] 04/08/20 at | | | 0613, For 1 dose, Pre-op | | + +---+ | | | + +---+ | dextrose 50% injection 12.5-25 | | | g 12.5-25 g, Intravenous, EVERY | | | 15 MIN PRN, Low Blood Sugar, Give | | | 12.5g (25 mL) IV if blood | | | glucose 50-69 mg/dL. Give 25g | | | (50 mL) IV if blood glucose < 50, | | | Starting [facility] 04/08/20 at 0613, | | | Repeat in 15 min if blood glucose | | | remains < 70 mg/dL. Repeat | | | blood glucose in 30 min once | | | blood glucose > 70., Pre-op | | + +---+ | | | + +---+ + + + +---+---+---+ | lactated ringers (LR) infusion | Continue | 04/08/20 | | | | | at 10-100 mL/hr, Intravenous, | d by | 20 7:58 | | | | | CONTINUOUS, Starting [facility]ha 04/08/20 | Anesthes | AM PDT | | | | | at 0630, TKO., Pre-op | ia | | | | | + + + +---+---+---+ +---------+ +---+-------+---+ | New Bag | 04/08/20 | | 100 | | | | 20 7:00 | | mL/hr | | | | AM PDT | | | | +---------+ +---+-------+---+ +---+---+ | | | +---+---+ + +-------+ +--------+---+---+ | lidocaine (AKTEN) 3.5% | Given | 04/08/20 | 1 drop | | | | ophthalmic gel 1 drop 1 drop, | | 20 7:24 | | | | | Right Eye, Prior to Incision, | | AM PDT | | | | | Starting [facility] 04/08/20 at 0626, For | | | | | | | 2 doses, Begin after | | | | | | | proparacaine. Begin 10 minutes | | | | | | | prior to leaving SDS for | | | | | | | operating room. Repeat jelly just | | | | | | | prior to leaving SDS and Q10 | | | | | | | minutes until in the operating | | | | | | | room. Keep eye closed after | | | | | | | placing medication., Pre-op | | | | | | + +-------+ +--------+---+---+ +-------+ +--------+---+---+ | Given | 04/08/20 | 1 drop | | | | | 20 7:03 | | | | | | AM PDT | | | | +-------+ +--------+---+---+ +---+---+ | | | +---+---+ + +-------+ +--------+---+---+ | phenylephrine (LUANN-SYNEPHRINE) | Given | 04/08/20 | 1 drop | | | | 2.5% ophthalmic solution 1 drop | | 20 7:03 | | | | | 1 drop, Right Eye, Prior to | | AM PDT | | | | | Incision, Starting [facility] 04/08/20 at | | | | | | | 0626, For 3 doses, Begin after | | | | | | | proparacaine. 1 drop every 10 | | | | | | | minutes for 3 doses. (May | | | | | | | alternate every 5 minutes with | | | | | | | tropicamide) Remind patient to | | | | | | | keep eye closed after placing | | | | | | | each drop., Pre-op | | | | | | + +-------+ +--------+---+---+ +-------+ +--------+---+---+ | Given | 04/08/20 | 1 drop | | | | | 20 6:47 | | | | | | AM PDT | | | | +-------+ +--------+---+---+ | Given | 04/08/20 | 1 drop | | | | | 20 6:38 | | | | | | AM PDT | | | | +-------+ +--------+---+---+ +---+---+ | | | +---+---+ + +-------+ +--------+---+---+ | proparacaine (ALCAINE) 0.5% | Given | 04/08/20 | 1 drop | | | | ophthalmic solution 1 drop 1 | | 20 6:38 | | | | | drop, Right Eye, Prior to | | AM PDT | | | | | Incision, Starting [facility] 04/08/20 at | | | | | | | 0626, For 1 dose, After placing | | | | | | | anesthetic, keep eye closed | | | | | | | except for when placing | | | | | | | additional medications. All other | | | | | | | drops/gel should follow this | | | | | | | drop., Pre-op | | | | | | + +-------+ +--------+---+---+ +---+---+ | | | +---+---+ + +-------+ +--------+---+---+ | tropicamide (MYDRIACYL) 1% | Given | 04/08/20 | 1 drop | | | | ophthalmic solution 1 drop 1 | | 20 7:03 | | | | | drop, Right Eye, Prior to | | AM PDT | | | | | Incision, Starting [facility] 04/08/20 at | | | | | | | 0626, For 3 doses, Begin after | | | | | | | proparacaine. 1 drop every 10 | | | | | | | minutes for 3 doses. (May | | | | | | | alternate every 5 minutes with | | | | | | | phenylephrine) Remind patient to | | | | | | | keep eye closed after placing | | | | | | | each drop., Pre-op | | | | | | + +-------+ +--------+---+---+ +-------+ +--------+---+---+ | Given | 04/08/20 | 1 drop | | | | | 20 6:47 | | | | | | AM PDT | | | | +-------+ +--------+---+---+ | Given | 04/08/20 | 1 drop | | | | | 20 6:38 | | | | | | AM PDT | | | | +-------+ +--------+---+---+ +---+---+ | | | +---+---+ documented in this encounter
--- OUTSIDE RECORDS SUMMARY | ~2020-04-30 | XMS | Encounter Summary ---
Demographics + + + | Address | [address] | | | [place] [address] | + + + | Home Phone [...] Providers + +------+ + | Care Medical Transcriber Name | Role | Phone | + [...] | | | | | not | [place] | [address] | | | | | specified as | [address] | [place], | | | | | acute or | [place], | [place] [address] | | | | | chronic, | [place] | Phone: | | | | | with lesion | [address] | [phone] | | | | | of | Phone: | Fax: | | | | | membranous | [phone] | [phone] | | | | | glomerulonep | Fax: | | | | | | hritis | [phone] | | | | | | Unspecified [...] | | | | | | | DE OFFICE | | | | | | | OUTPATIENT | | | | | | | VISIT 25 | | | | | | | MINUTES | | | +--------+--------+ + + + + Encounter Details +--------+ + + + + | Date | Type | Department | Care Team | Description | +--------+ + + + + | 05/03/ | Off-Site | [facility] | Juan Paris | Membranous | | 2015 | Visit | NEPHROLOGY [address] | M, DO [address] | glomerulonephritis | | | | [address] | [address] [place] | (Primary Dx); | | | | [place], [place] | [place] [address] | Essential | | | | [address] | [phone] | hypertension; | | | | [phone] | | CHRONIC OBSTRUCTIVE | | | | | | PULMONARY DISEASE; | | | | | | Hyperlipidemia | +--------+ + + + + Social [...] + + + | Blood Pressure | 136/80 | 05/03/2015 11:26 AM | | | | | PDT | | + + + + + | Pulse | - | - | | + + + + + | Temperature | 35.1 C (95.2 F) | 05/03/2015 11:26 AM | | | | | PDT [...] + + + + | Weight | 87.3 kg (192 lb 7.4 | 05/03/2015 11:26 AM | | | | oz) | PDT | | + + + + + | Height | - | - | | + + + + + | Body Mass Index | 27.03 | 02/15/2015 9:20 AM | | | | | PDT | | + + + + + documented in this encounter Progress Notes Juan Paris DO - 05/04/2015 11:27 AM PDT Subjective: Patient ID: Sierra Roman is a 64 y.o. male. HPI Comments: Followup for this 63 YO white male with biopsy-proven membranous GN, who is status post 6 months prednisone/12 months mycophenolate, in 2004, hyperlipidemia, steroid-induced Type I I DM, remote history of diverticulitis, prediabetes, and COPD. He denies any new edema, hematuria, anorexia or new problems. Unfortunately, he still cont inues to smoke despite advice that this puts him at increased risk for lung CA and CV disease. Outpatient Prescriptions Marked as Taking for the 05/03/15 encounter (Off-Site Visit) with Chico Paris DO [...] needed for Sleep. 30 t ablet 4 Allergies Allergen Reactions Amoxicillin Objective: Blood pressure 136/80, temperature 35.1 C (95.2 F), weight 87.3 kg (192 lb 7 .4 oz). Physical Exam Heart: Regular rate and [...] 04/27/2014 HCTEX 44.2 04/27/2014 PLTEX 184 04/27/2014 24-hour urine: Lab Results Component Value Date CRCLEARANCE 82.0* 05/01/2014 Lab Results Component Value Date [id number] 910.0 05/01/2014 Assessment: 1. 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 2. Hypertension--good control. 3. Hyperlipidemia--on statin Rx. 4. Steroid-induced Type II DM--in remission. 5. COPD--stable. Plan: 1. I reviewed with Sierra that his Scr, and GFR appear stable on his current regimen with BP control and use of an ACEI. 2. Will continue his current regimen, as overall he appears stable. 3. 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 4. Will plan to see him back in 1 year,at the [facility], with a 24 Hr urine , lab, and a lipid profile 1 week prior to that. CC: [place] Chisholm M.D. documented in thi s encounter Plan of [...] PB | | | | | | [place] [address] | | | | | | [phone] | | | | | | | | +--------+ + + + + | 07/23/ | Office | Pulmonology | Jt Roman | | | 2019 | Visit | | Tony Edwards MD [address] | | | | | | [address] | | | | | | [place] [address] | | | | | | [phone] | | | | | | | | +--------+ + + + + documented as of this encounter Visit Diagnoses + + | Diagnosis | + + | Membranous glomerulonephritis - Primary Nephritis and nephropathy, not specified as | | acute or chronic, with lesion of membranous glomerulonephritis | + + | Essential hypertension Unspecified essential hypertension | + + | CHRONIC OBSTRUCTIVE PULMONARY DISEASE Chronic airway obstruction, not elsewhere | | classified | + + | Hyperlipidemia Other and unspecified hyperlipidemia | + + documented in this encounter"
--- OUTSIDE RECORDS SUMMARY | ~2020-04-30 | XMS | Encounter Summary ---
Demographics + + + | Address | [address] | | | [place] [address] | + + + | Home Phone [...] Providers + +------+ + | Care Electric Sign Wirer Name | Role | Phone | + +------+ + PCP | Unavailable | + +------+ + Reason for Visit +--------+--------+ + | Reason | Onset | Comments | | | Date | | +--------+--------+ + | Other | 09/26/ | | | | 2016 | | +--------+--------+ + Encounter Details +--------+ + + + + | Date | Type | Department | Care Team | Description | +--------+ + + + + | 09/26/ | Telephone | [facility] | [facility] | Other | | 2016 | | [facility] | M, DO [address] | | | | | [facility] [address] [place] | | | | | [address] [place] | [place] [address] | | | | | [place] [address] | [phone] | | | | | [phone] | | | +--------+ + + + [...] this encounter Miscellaneous Notes Telephone Encounter - Radha Galaviz RN - 09/26/2016 1:50 PM PST A return call was made that the authorization for Rituxan was complete and approved by Michael in May of 2016Ele ctronically signed by Radha Galaviz RN at 09/26/2016 1:51 PM PSTTelephone Encounter - Efrain Dow Daniel - 09/26/2016 12:52 PM PSTMrsRed Roman calls to make sure that the Rituxin for her has been authorized. She's never heard from anyone and his treatment is tomorro w. documented in this en counter Plan of [...] PB | | | | | | [place] [address] | | | | | | [phone] | | | | | | | | +--------+ + + + + | 07/23/ | Office | Pulmonology | Jt Roman | | | 2020 | Visit | | Tony Rosado MD [address] | | | | | [address] | | | | | | [facility] [place] [address] | | | | | | [phone] | | | | | | | | +--------+ + + + + documented as of this encounter Visit Diagnoses Not on filedocumented in this encounter"
--- OUTSIDE RECORDS SUMMARY | ~2020-04-30 | XMS | Clinical Summary ---
Demographics + + + | Address | [address] | | | [place] [address] | + + + | Home Phone | | + + + | Preferred Language | Unknown | + + + | Marital Status | | + + + | Shinto Affiliation | 1013 | + + + | Race | Unknown | + + + | Ethnic Group | Unknown | + + + Author + + + | Author | [facility] | | | and [place] | + + + | Organization | [facility] | | | [...] Team Providers + +------+ + | Care Gantry Crane Operator Name | Role | Phone | + +------+ + | Meme Burgos MD | PCP | | + +------+ + Allergies + + + + + + | Active Allergy | Reactions | Severity | Noted | Comments | | | | | Date | | + + + + + + | Amoxicillin | Hives, Shortness Of | High | 03/07/20 | | | | Breath, Rash | | 17 | | + + + + + + | Lisinopril | Cough | Low | 03/07/20 | | | | | | 17 | | + + + + + + Medications + + + +---------+------+------+-------+ | Medication | Sig | Dispensed | Refills | Star | End | Statu | | | | | | t | Date | s | | | | | | Date | | | + + + +---------+------+------+-------+ | aspirin 81 MG EC | Take 81 mg by mouth | | 0 | 06/01 | | Activ | | tablet | Daily. | | | 12/18 | | e | | | | | | 12 | | | + + + +---------+------+------+-------+ | omeprazole | Take one capsule by | | 0 | / | | Activ | | (PRILOSEC) 20 mg | mouth once daily on | | | 3/20 | | e | | capsule | an empty stomach | | | 12 | | | + + + +---------+------+------+-------+ | simvastatin | Take 1 tablet by | 90 | 4 | 12/0 | | Activ | | (ZOCOR) 20 mg tablet | mouth Daily. | tablet | | 20 | | e | | | | | | 14 | | | + + + +---------+------+------+-------+ | albuterol | Inhale 2 puffs into | | 0 | | | Activ | | (PROVENTIL HFA) 90 | the lungs every 4 | | | | | e | | mcg/puff inhaler | hours as needed for | | | | | | | | Shortness of Breath. | | | | | | + + + +---------+------+------+-------+ | albuterol 2.5 mg/3 | Take 3 mLs by | 360 | 11 | 04/1 | | Activ | | mL nebulizer | nebulization every 4 | vial | | 3/20 | | e | | solution | hours as needed for | | | 17 | | | | | Shortness of | | | | | | | | Breath. | | | | | | + + + +---------+------+------+-------+ | calcium, as | Take 600 mg by mouth | | 0 | | | Activ | | carbonate, | daily (with | | | | | e | | (CALTRATE) 600 mg | breakfast). | | | | | | | tablet | | | | | | | + + + +---------+------+------+-------+ | Multiple | Take 1 tablet by | | 0 | | | Activ | | Vitamins-Minerals (B | mouth Daily. | | | | | e | | COMPLEX PLUS | | | | | | | | VITAMIN C PO) | | | | | | | + + + +---------+------+------+-------+ | guaiFENesin | Take 600 mg by mouth | | 0 | | | Activ | | (MUCINEX) 600 mg 12 | 2 times daily. | | | | | e | | hr | | | | [...] hyperlipidemia | | | | | | | + + + +---------+------+------+-------+ | B Complex Vitamins | Take by mouth | | 0 | | | Activ | | (B COMPLEX PO) | daily. | | | | | e | + + + +---------+------+------+-------+ | Calcium | Take 1 tablet by | | 0 | | | Activ | | Carb-Cholecalciferol | mouth Daily . | | | | | e | | 600-800 MG-UNIT | | | | | | | | TABS | | | | | | | + + + +---------+------+------+-------+ | cholecalciferol | 1,000 Units . | | 0 | | | Activ | | (VITAMIN D-3) 400 | | | | | | e | | units capsule | | | | | | | + + + +---------+------+------+-------+ | citalopram | Take 10 mg by mouth | | 0 | 05/3 | | Activ | | (CELEXA) 10 mg | daily. | | | 0/20 | | e | | tablet | | | | 18 | | | + + + +---------+------+------+-------+ | | Take 3 mLs by | | 0 | | | Activ | | albuterol-ipratropiu | nebulization. | | | | | e | | m 2.5-0.5 mg/3 mL | | | | | | | | SOLN | | | | | | | + + + +---------+------+------+-------+ | metFORMIN | Take 500 mg by mouth | | 0 | | | Activ | | (GLUCOPHAGE) 500 mg | 4 (four) times | | | | | e | | tablet | daily. 2 pills AM 2 | | | | | | | | pills PM | | | | | | + + + +---------+------+------+-------+ | tamsulosin | Take 0.4 mg by mouth | | 0 | 07/3 | | Activ | | (FLOMAX) 0.4 mg CAPS | every evening. Take | | | 20 | | e | | | 2 tabs nightly | | | 18 | | | + + + +---------+------+------+-------+ | tiotropium | Inhale 18 mcg into | | 0 | | | Activ | | (SPIRIVA) 18 mcg | the lungs daily. | | | | | e | | inhalation capsule | | | | | | | + + + +---------+------+------+-------+ | | Inhale two | 1 | 6 | 10/1 | | Activ | | budesonide-formotero | inhalations by mouth | Inhaler | | 820 | | e | | l (SYMBICORT) | twice daily | | | 19 | | | | 160-4.5 mcg/puff | | | | | | | | inhalerIndications: | | | | | | | | Centrilobular | | | | | | | | emphysema (HCC) | | | | | | | + + + +---------+------+------+-------+ | furosemide (LASIX) | Take 1 tablet by | | 0 | 03/0 | | Activ | | 40 mg | mouth Daily as | | | 20 | | e | | tabletIndications: | needed. | | | 20 | | | | 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| | | | glomerulonephritis, | | | | | | | | Essential | | | | | | | | hypertension, benign | | | | | | | + + + +---------+------+------+-------+ | predniSONE | take 1 tablet by | 30 | 2 | 05/0 | | Activ | | (DELTASONE) 10 mg | mouth once daily | tablet | | 04/19 | | e | | tabletIndications: | | | | 20 | | | | COPD, severe (HCC) | | | | | | | + + + +---------+------+------+-------+ +---+ + | | Additional | | | InformationPatient | | | taking differently: | | | 5 mg, Reason: Not | | | Available, Reported | | | on 04/07/2020 2:33 PM | +---+ + + + +---+---+------+------+-------+ | ZINC-VITAMIN C PO | Take by mouth Daily. | | 0 | | | Activ | | | | | | | | e | + + +---+---+------+------+-------+ | losartan (COZAAR) | Take 12.5 mg by | | 0 | | | Activ | | 25 mg tablet | mouth nightly . | | | | | e | + + +---+---+------+------+-------+ | fish oil 1,000 mg | Take 2,000 mg by | | 0 | | | Activ | | capsule | mouth nightly. | | | | | e | + + +---+---+------+------+-------+ | Flaxseed, Linseed, | Take 1,000 mg by | | 0 | | | Activ | | (FLAX SEED OIL) | mouth Daily. | | | | | e | | 1000 MG CAPS | | | | | | | + + +---+---+------+------+-------+ | glipiZIDE | Take 2.5 mg by mouth | | 0 | | | Activ | | (GLUCOTROL XL) 2.5 | daily (with | | | | | e | | mg 24 hr tablet | breakfast). | | | | | | + + +---+---+------+------+-------+ | cetirizine | Take 10 mg by mouth | | 0 | | | Activ | | (ZYRTEC) 10 mg | Daily. | | | | | e | | tablet | | | | | | | + + +---+---+------+------+-------+ | montelukast | Take 10 mg by mouth | | 0 | | | Activ | | (SINGULAIR) 10 mg | Daily. | | | | | e | | tablet | | | | | | | + + +---+---+------+------+-------+ | FLUTICASONE | Inhale 50 mg into | | 0 | | | Activ | | FUROATE IN | the lungs. | | | | | e | + + +---+---+------+------+-------+ | losartan (COZAAR) | Take 25 mg by mouth | | 0 | | 07/0 | Disco | | 100 MG | Daily. | | | | 8/20 | ntinu | | tabletIndications: | | | | | 20 | ed | | Mucopurulent chronic | | | | | | (Erro | | bronchitis (HCC), | | | | | | r) | | 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[...] hypertension | | | | | | | + + +---+---+------+------+-------+ | Green Tea, | Take 1 capsule by | | 0 | | 07/0 | Disco | | Camillia sinensis, | mouth Daily. | | | | 8/20 | ntinu | | 315 MG CAPS | | | | | 20 | ed | | | | | | | | (Erro | | | | | | | | r) | + + +---+---+------+------+-------+ | METOPROLOL | Take 50 mg by mouth | | 0 | | 07/0 | Disco | | SUCCINATE ER PO | nightly. | | | | 8/20 | ntinu | | | | | | | 20 | ed | | | | | | | | (Erro | | | | | | | | r) | + + +---+---+------+------+-------+ | calcium-vitamin D | Take 1 tablet by | | 0 | | 07/0 | Disco | | 600 mg-200 units per | mouth daily. | | | | 8/20 | ntinu | | tablet | | | | | 20 | ed | | | | | | | | (Erro | | | | | | | | r) | + + +---+---+------+------+-------+ | hydrOXYzine | Take 25 mg by mouth | | 0 | 11/1 | 07/0 | Disco | | hydrochloride | every 6 (six) hours | | | 6/20 | 8/20 | ntinu | | (ATARAX) 25 mg | as needed. FOR | | | 18 | 20 | ed | | tablet | ANXIETY | | | | | (Erro | | | | | | | | r) | + + +---+---+------+------+-------+ | fish oil 1,000 mg | Take 500 mg by mouth | | 0 | | 07/0 | Disco | | capsule | daily. | | | | 8/20 | ntinu | | | | | | | 20 | ed | | | | | | | | (Erro | | | | | | | | r) | + + +---+---+------+------+-------+ | | Take 5 mLs by mouth. | | 0 | | 07/0 | Disco | | promethazine-codeine | 1-3 tsp q 3-8 hrs | | | | 8/20 | ntinu | | (PHENERGAN WITH | prn Indications: | | | | 20 | ed | | CODEINE) 6.25-10 | Cough | | | | | (Erro | | mg/5 mL syrup | | | | | | r) | + + +---+---+------+------+-------+ Active Problems + + + | Problem | Noted Date | + + + | Left lower quadrant abdominal pain | 07/18/2019 | + + + | Hypertensive disorder | 07/18/2019 | + + + | Hematuria | 07/18/2019 | + + + | Acute dermatitis | 07/18/2019 | + + + | Moderate persistent asthma without complication | 01/17/2019 | + + + | Abdominal wall hernia | 08/20/2018 | + + + + + | Overview: No comments entered for problem. | + + + + + | Age-related cataract of right eye | 08/20/2018 | + + + | Benign prostatic hyperplasia | 08/20/2018 | + + + | Central serous chorioretinopathy | 08/20/2018 | + + + | Gastroesophageal reflux disease | 08/20/2018 | + + + | History of basal cell carcinoma | 08/20/2018 | + + + + + | Overview: No comments entered for problem. | + + + + + | Injury, other and unspecified, knee, leg, ankle, and foot | 08/20/2018 | + + + | Insomnia | 08/20/2018 | + + + + + | Overview: No comments entered for problem. 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 | 05/05/2014 | | disease stage I through stage IV, or unspecified(403.90) | | + + + | DIABETES MELLITUS, TYPE II | | + + + | HYPERLIPIDEMIA | | + + + | GASTROESOPHAGEAL REFLUX DISEASE, HX OF | | + + + | Former tobacco use | | + + + | MEMBRANOUS GLOMERULONEPHRITIS | | + + + Resolved Problems + +--------+ + | Problem | Noted | Resolved | | | Date | Date | + +--------+ + | Nicotine addiction | | | | | | 6 | + +--------+ + | Shortness of breath | | | | | | 6 | + +--------+ + | BRONCHITIS, OBSTRUCTIVE CHRONIC | | | | | | 6 | + +--------+ + | SLEEP RELATED HYPOVENTILATION/HYPOXEMIA CCE | | | | | | 6 | + +--------+ + Encounters +--------+ + + + + | Date | Type | Specialty | Care Team | Description | +--------+ + + + + | 04/23/ | Orders Only | Nephrology | Juan Paris | Chronic kidney | | 2019 | | | DO Nisreen | disease, stage II | | | | | | (mild) (Primary Dx); | | | | | | Mixed | | | | | | hyperlipidemia | +--------+ + + + + | 04/22/ | Office | Pulmonology | Jt Roman | COPD, severe (HCC) | | 2019 | Visit | | Tony Edwards MD | (Primary Dx); | | | | | | Nocturnal hypoxemia | +--------+ + + + + | 04/08/ | Anesthesia | | Thomas Smith, | | | 2019 | Event | | | | +--------+ + + + + | 04/08/ | Surgery | | Jaun Rivas | RIGHT EXTRACTION | | 2019 | | | MD Az | CATARACT W/ LENS | | | | | | IMPLANT | +--------+ + + + + | 04/08/ | Hospital | | Jaun Rivas | | | 2019 | Encounter | | MD Az | | +--------+ + + + + | 04/04/ | Clinical | Immediate Care | Terrence Lopez | Preoperative testing | | 2019 | Support | | MACEY Emerson | (Primary Dx) | +--------+ + + + + | 03/26/ | Clinical | Immediate Care | Dylan | Pre-op testing | | 2019 | Support | | Jeremiah Mclean MD | (Primary Dx) | +--------+ + + + + | 03/22/ | Telephone | Pulmonology | Jt Roman | Shortness of Breath | | 2019 | | | Tony Edwards MD | | +--------+ + + + + | 01/28/ | Refill | Pulmonology | Jt Roman | Medication Refill | 2019 | | | Tony Edwards MD | | +--------+ + + + + from Last 3 Months Immunizations + + + + | Name | Administration Dates | Next Due | + + + + | INFLUENZA 64 Y OR >, | 07/10/2016, 08/14/2015, 06/16/2015 | | | TRIVALENT HIGH-DOSE | | | + + + + | INFLUENZA PF 17 Y OR | 07/18/2014, 07/15/2013 | | | >,QUADRIVALENT | | | | RECOMBINANT | | | + + + + | INFLUENZA PF 17 Y OR | 07/18/2014, 07/15/2013, 10/10/2012 | | | >,TRIVALENT | | | | RECOMBINANT | | | + + + + | INFLUENZA PF 64 Y OR | 09/15/2019, 07/04/2018, 07/03/2017 | | | >,TRIVALENT (FLUAD) | | | + + + + | INFLUENZA PF | 07/18/2014, 07/15/2013 | | | TRIVALENT(PED/ADOL/A | | | | DULT), PSKT | | | + + + + | INFLUENZA, | 07/10/2017, 07/15/2016, 07/26/2010 | | | UNSPECIFIED | | | | FORMULATION | | | + + + + | PNEUMOCOCCAL | 09/13/2015, 07/07/2015 | | | CONJUGATE 13-VALENT | | | | (PCV13) | | | + + + + | PNEUMOCOCCAL | 05/11/2016, 07/18/2014, 10/10/2011 | | | POLYSACCHARIDE | | | | 23-VALENT (PPSV23) | | | + + + + | PNEUMOCOCCAL, | 10/22/2009 | | | UNSPECIFIED | | | | FORMULATION | | | + + + + | TDAP, (ADOL/ADULT) | 10/10/2011 | | + + + + | ZOSTER NON-LIVE | 04/15/2019 | | | (SHINGRIX) | | | + + + + | ZOSTER, 1 DOSE | 09/18/2014 | | | (ZOSTAVAX) | | | + + + + Family History + + +------+ + | Medical History | Relation | Name | Comments | + + +------+ + | Diabetes | Brother | | | + + +------+ + | Cancer | Father | | COLON; LUNG/lung | + + +------+ + | Colon cancer | Father | | | + + +------+ + | Coronary artery | Father | | | | disease | | | | + + +------+ + | Heart disease | Father | | | + + +------+ + | Heart surgery | Father | | | + + +------+ + | High blood pressure | Father | | | + + +------+ + | Hypertension | Father | | | + + +------+ + | Lung cancer | Father | | | + + +------+ + | Other (see comment) | Father | | CAD | + + +------+ + | Arthritis | Mother | | | + + +------+ + | Diabetes | Mother | | | + + +------+ + | Emphysema | Mother | | | + + +------+ + | Heart failure | Mother | | | + + +------+ + | High blood pressure | Mother | | | + + +------+ + | Hypertension | Mother | | | + + +------+ + | Other (see comment) | Mother | | DJD | + + +------+ + | Rheum arthritis | Mother | | | + + +------+ + | Stroke | Mother | | | + + +------+ + + +------+ + + | Relation | Name | Status | Comments | + +------+ + + | Brother | | | | + +------+ + + | Father | | | | | | | (Age | | | | | 73) | | + +------+ + + | Mother | | Alive | | + +------+ + + Social History + +-------+ +--------+------+ [...] | Tobacco Cessation: Counseling Given: No | | Comments: Current chew | + + [...] on file | | + + + Last Filed Vital Signs + + + [...] | | + + + + + Plan of Treatment +--------+ + + + + | Date | Type | Specialty | Care Team | Description | +--------+ + + + + | 05/24/ | Off-Site | Nephrology | Juan Paris | | 2019 | Visit | | DO Nisreen [address] | | | | | | [address] | | | | | | [place] [address] | | | | | | [phone] | | | | | | | | +--------+ + + + + | 07/23/ | Office | Pulmonology | Jt Roman | | 2019 | Visit | | Tony Edwards MD [address] | | | | | [address] | | | | | | [place] [address] | | | | | | [phone] | | | | | | | | +--------+ + + + + + + + + + | Health Maintenance | Due Date | Last | Comments | | | | Done | | + + + + + | Hepatitis C | | | | | Screening | 9 | | | + + + + + | Medication | | | | | Management | 9 | | | + + + + + | Diabetic Eye Exam | | | | | | 7 | | | + + + + + | Diabetic Foot Exam | | | | | | 7 | | | + + + + + | Colorectal Cancer | | | | | Screening | 9 | | | | (Colonoscopy) | | | | + + + + + | Adult Annual | | | | | Wellness Visit | 5 | | | + + + + + | Lung Cancer | | 02/24/20 | | | Screening | 7 | 16 | | + + + + + | Vaccine: Zoster (3 | | 04/15/20 | | | of 3) | 9 | 19, | | | | | 09/18/20 | | | | | 14 | | + + + + + | Hemoglobin A1c | | 05/22/20 | | | Screening | 0 | 19, | | | | | 05/22/20 | | | | | 19, | | | | | 11/22/19 | | | | | 18, | | | | | Addition | | | | | al | | | | | history | | | | | exists | | + + + + + | Med Mgmt: HBA1C | | 05/22/20 | | | | 0 | 19, | | | | | 05/22/20 | | | | | 19, | | | | | 11/22/19 | | | | | 18, | | | | | Addition | | | | | al | | | | | history | | | | | exists | | + + + + + | Vaccine: Influenza | | 09/15/20 | | | (#1) | 0 | 19, | | | | | 07/04/20 | | | | | 18, | | | | | 07/10/20 | | | | | 17, | | | | | Addition | | | | | al | | | | | history | | | | | exists | | + + + + + | Med Mgmt: Cr | | 11/21/19 | | | | 1 | 20, | | | | | 05/22/20 | | | | | 19, | | | | | 05/21/20 | | | | | 18, | | | | | Addition | | | | | al | | | | | history | | | | | exists | | + + + + + | Med Mgmt: K | | 11/21/19 | | | | 1 | 20, | | | | | 05/22/20 | | | | | 19, | | | | | 05/21/20 | | | | | 18, | | | | | Addition | | | | | al | | | | | history | | | | | exists | | + + + + + | Med Mgmt: Na | | 11/21/19 | | | | 1 | 20, | | | | | 05/22/20 | | | | | 19, | | | | | 05/21/20 | | | | | 18, | | | | | Addition | | | | | al | | | | | history | | | | | exists | | + + + + + | Med Mgmt: Vit D | | 11/21/19 | | | | 1 | 20, | | | | | 05/22/20 | | | | | 19 | | + + + + + | Med Mgmt: eGFR | | 11/21/19 | | | | 1 | 20, | | | | | 05/22/20 | | | | | 19, | | | | | 05/21/20 | | | | | 18, | | | | | Addition | | | | | al | | | | | history | | | | | exists | | + + + + + | Vaccine: | | 10/10/19 | | | Dtap/Tdap/Td (2 - | 2 | 12 | | | Td) | | | | + + + + + | AAA Screening | Completed | 03/13/20 | | | | | 16 | | + + + + + | Vaccine: | Completed | 05/11/20 | | | Pneumococcal 65+ | | 16, | | | | | 09/13/20 | | | | | 15, | | | | | 07/07/20 | | | | | 15, | | | | | Addition | | | | | al | | | | | history | | | | | exists | | + + + + + Implants + +--------+--------+ +--------+--------+--------+ | Implanted | Type | Area | Manufacture | Device | Shelf | Model | | | | | r | | Expira | / | | | | | | Identi | tion | Serial | | | | | | fier | Date | / Lot | + +--------+--------+ +--------+--------+--------+ | Lens Tecnis Preloaded Pcb | Generi | Right: | FISH | | 10/24/ | [id number] | | 20.0 - [id number]: | c | Eye | MEDICAL | | 2022 | [id number] | | Qty: 1 on 04/08/2020 by | | | [employer] - | | | /[id number] | | Jaun Rivas MD at | | | [place] | | | [phone] | | [facility] | | | | | | / | | [facility] | | | | | | | + +--------+--------+ +--------+--------+--------+ Procedures + +--------+ + + + | [...] section. | + +--------+ + + + from Last 3 Months Results POC Glucose (04/08/2020 7:01 AM PDT) + +-------+ + + + | Component | Value | Ref Range | Performed | Pathologist | | | | | At | Signature | + +-------+ + + + | Glucose, | 91 | 70 - 109 mg/dL | [facility] | | | POC | | | [facility] | | | | [...] + + | [facility] | [address] | [place] | [phone] | | [facility] | | [address] | | | - LABORATORY | | | | + + + + + Coronavirus (COVID-19) NAAT (04/08/2020 6:22 AM PDT)Only the most recent of 3 results with in the time period is included. + + + + + + | [...] | | results, using the | | [facility] - | | | | [employer] ID NOW Platform, | | LABORATORY | [...] + + + + + | [facility] | [address] | [place] | [phone] | | [facility] | | [address] | | | - LABORATORY | | | | + + + + + from Last 3 Months Insurance + +--------+ +--------+ +---------+--------+ | Payer | Benefi | Subscriber | Effect | Phone | Address | Type | | | t Plan | ID | scarlett | | | | | | / | | Dates | | | | | | Group | | | | | | + +--------+ +--------+ +---------+--------+ | [employer] [place] | [id number] | | | | Indemn | | | COMMUN | | 020-Pr | | | ity | | | ITY | | esent | | | | | | CARE | | | | | | + +--------+ +--------+ +---------+--------+ | MEDICARE | MEDICA | [id number] | | [phone] | | Medica | | | RE | | 014-Pr | 5 | | re | | | PART A | | esent | | | | | | AND B | | | | | | + +--------+ +--------+ +---------+--------+ | MEDICARE | MEDICA | [id number] | | [phone] | | Medica | | | RE | | 014-Pr | 5 | | re | | | PART A | | esent | | | | | | AND B | | | | | | + +--------+ +--------+ +---------+--------+ | [employer] | MUTUAL | [id number] | 03/01/20 | [phone] | | Indemn | | | AND | | 20-Pre | 0 | | ity | | | [place] | | sent | | | | | | [place] | | | | | | | | MDCR | | | | | | | | SUPPL | | | | | | + +--------+ +--------+ +---------+--------+ | [employer] | MUTUAL | [id number] | | [phone] | | Indemn | | | AND | | 016-Pr | 0 | | ity | | | [place] | | esent | | | | | | [place] | | | | | | | | MDCR | | | | | | | | SUPPL | | | | | | + +--------+ +--------+ +---------+--------+ + +--------+ +--------+ + + | Guarantor Name | Accoun | Relation to | Date | Phone | Billing Address | | | t Type | Patient | of | | | | | | | | | | + +--------+ +--------+ + + | Sierra Roman | Person | Self [birth year] | [address] | | | al/Fam | | 1950 | [phone] | [place] | | | [place] | | | [place] (Home) | [phone] | + +--------+ +--------+ + + | Sierra Roman | Person | Self [birth year] | [address] | | | al/Fam | | 1950 | [phone] | [place] | | | [place] | | | 0 ([place]) | [phone] | | | | | | [phone] | | | | | | | 3 (Work) | | + +--------+ +--------+ + + Advance Directives + + + + + | Type | Date Recorded | Patient | Explanation | | | | 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
--- OUTSIDE RECORDS SUMMARY | ~2020-04-30 | XMS | Encounter Summary ---
Demographics + + + | Address | [address] | | | [place] [address] | + + + | Home Phone | | + + + | Preferred Language | Unknown | + + + | Marital Status | | + + + | Restorationism Affiliation | 1013 | + + + [...] Team Providers + +------+ + | Care Ham Curer Name | Role | Phone | + +------+ + | Meme Burgos MD | PCP | | + +------+ + Encounter Details +--------+ + + + + | Date | Type | Department | Care Team | Description | +--------+ + + + + | 05/24/ | Abstract | [facility] | Juan Paris | | | 2017 | | NEPHROLOGY [address] | M, DO [address] | | | | | [address] | [address] | | | | | [place] | [place] [address] | | | | | [address] | [phone] | | | | | [phone] | | | +--------+ + + + [...] PB | | | | | | [place] [address] | | | | | | [phone] | | | | | | | | +--------+ + + + + | 07/23/ | Office | Pulmonology | Jt Roman | | 2019 | Visit | | Tony Edwards MD [address] | | | | | [address] | | | | | | [place] [address] | | | | | | [phone] | | | | | | | | +--------+ + + + + documented as of this encounter Procedures + +--------+ + + + | Procedure Name | Priori | Date/Time | Associated Diagnosis | Comments | | | ty | | | | + +--------+ + + + | EXTERNAL LAB: BRENDA | Routin | 05/21/2018 | | Results for this | | | e | | | procedure are in the | | | | | | results section. | + +--------+ + + + | EXTERNAL LAB: | Routin | 05/21/2018 | | Results for this | | GLUCOSE | e | | | procedure are in the | | | | | | results section. | + +--------+ + + + | EXTERNAL LAB: TIM | Mary | 05/21/2018 | | Results for this | | | e | | | procedure are in the | | | | | | results section. | + +--------+ + + + | EXTERNAL LAB: KRIS | Mary | 05/21/2018 | | Results for this | | | e | | | procedure are in the | | | | | | results section. | + +--------+ + + + | EXTERNAL LAB: | Routin | 05/21/2018 | | Results for this | | ALKALINE PHOSPHATASE | e | | | procedure are in the | | | | | | results section. | + +--------+ + + + | EXTERNAL LAB: | Routin | 05/21/2018 | | Results for this | | BILIRUBIN, TOTAL | e | | | procedure are in the | | | | | | results section. | + +--------+ + + + | EXTERNAL LAB: | Routin | 05/21/2018 | | Results for this | | ALBUMIN | e | | | procedure are in the | | | | | | results section. | + +--------+ + + + | EXTERNAL LAB: | Routin | 05/21/2018 | | Results for this | | PROTEIN, TOTAL | e | | | procedure are in the | | | | | | results section. | + +--------+ + + + | EXTERNAL LAB: | Routin | 05/21/2018 | | Results for this | | PHOSPHORUS | e | | | procedure are in the | | | | | | results section. | + +--------+ + + + | EXTERNAL LAB: | Routin | 05/21/2018 | | Results for this | | CALCIUM | e | | | procedure are in the | | | | | | results section. | + +--------+ + + + | EXTERNAL LAB: CARBON | Routin | 05/21/2018 | | Results for this | | DIOXIDE | e | | | procedure are in the | | | | | | results section. | + +--------+ + + + | EXTERNAL LAB: | Routin | 05/21/2018 | | Results for this | | CHLORIDE | e | | | procedure are in the | | | | | | results section. | + +--------+ + + + | EXTERNAL LAB: | Routin | 05/21/2018 | | Results for this | | POTASSIUM | e | | | procedure are in the | | | | | | results section. | + +--------+ + + + | EXTERNAL LAB: SODIUM | Routin | 05/21/2018 | | Results for this | | | e | | | procedure are in the | | | | | | results section. | + +--------+ + + + | EXTERNAL LAB: | Routin | 05/21/2018 | | Results for this | | PROTEIN, URINE, 24HR | e | | | procedure are in the | | | | | | results section. | + +--------+ + + + | EXTERNAL LAB: CBC | Routin | 05/21/2018 | | Results for this | | | e | | | procedure are in the | | | | | | results section. | + +--------+ + + + | EXTERNAL LAB: | Routin | 05/21/2018 | | Results for this | | TRIGLYCERIDES | e | | | procedure are in the | | | | | | results section. | + +--------+ + + + | EXTERNAL LAB: | Routin | 05/21/2018 | | Results for this | | CHOLESTEROL, HDL | e | | | procedure are in the | | | | | | results section. | + +--------+ + + + | EXTERNAL LAB: | Routin | 05/21/2018 | | Results for this | | CHOLESTEROL, TOTAL | e | | | procedure are in the | | | | | | results section. | + +--------+ + + + | EXTERNAL LAB: | Routin | 05/21/2018 | | Results for this | | CHOLESTEROL, LDL | e | | | procedure are in the | | | | | | results section. | + +--------+ + + + | EXTERNAL LAB: EGFR | Routin | 05/21/2018 | | Results for this | | | e | | | procedure are in the | | | | | | results section. | + +--------+ + + + | EXTERNAL LAB: | Routin | 05/21/2018 | | Results for this | | CREATININE | e | | | procedure are in the | | | | | | results section. | + +--------+ + + + | CREATININE | Routin | 05/21/2018 | | Results for this | | CLEARANCE, RESULT | e | | | procedure are in the | | | | | | results section. | + +--------+ + + + documented in this encounter Results Creatinine Clearance, Result (05/21/2018) + + + + + + | Component | Value | Ref Range | Performed | Pathologist | | | | | At | Signature | + + + + + + | CREATININE | 75.0 (A) | 97.0 - 137.0 | | | | CLEARANCE | | mL/min | | | + + + + + + | 24H Urine | 1,550 | mL | | | | Volume | | | | | + + + + + + | PTH Intact, | 43.67 | 15 - 65 | | | | External | | | | | + + + + + + + + | Specimen | + + | Urine | + + External Lab: Protein, Urine, 24Hr (05/21/2018) + +---------+ + + + | Component | Value | Ref Range | Performed | Pathologist | | | | | At | Signature | + +---------+ + + + | Protein, | 171 (A) | 150 | EXTERNAL | | [...] + +---------+ + + External Lab: CBC (05/21/2018) + + + + + + | Component | Value | Ref Range | Performed | Pathologist | | | | | At | Signature | + + + + + + | WBC, | 11.4 (A) | 4.5 - 11 | EXTERNAL | | | External | | | LAB | | + + + + + + | HGB, | 14.5 | 13.5 - 18 | EXTERNAL | | | External | | | LAB | | + + + + + + | HCT, | 43.2 | 41 - 50 | EXTERNAL | | | External | | | LAB | | + + + + + + | PLT, | 194 | 140 - 440 | EXTERNAL | | | External | | | LAB | | + + + + + + | RBC, | 4.65 | 4.3 - 5.7 | EXTERNAL | | | External | | | LAB | | + + + + + + | MCV, | 93 | 81 - 99 | EXTERNAL | | | External | | | LAB | | + + + + + + | RDW, | 14.1 | 10.5 - 15 | EXTERNAL | [...] + +---------+ + + External Lab: BRENDA (05/21/2018) + +-------+ + + + | Component [...] + +---------+ + + External Lab: Glucose (05/21/2018) + +---------+ + + + | Component | Value | Ref Range | Performed | Pathologist | | | | | At | Signature | + +---------+ + + + | Glucose, | 130 (A) | 70 - 100 | EXTERNAL [...] + +---------+ + + External Lab: ALT (05/21/2018) + +-------+ + + + | Component [...] + +---------+ + + External Lab: AST (05/21/2018) + +--------+ + + + | Component [...] +---------+ + + External Lab: Alkaline Phosphatase (05/21/2018) + +-------+ + + + | Component | Value | Ref Range | Performed | Pathologist | | | | | At | Signature | + +-------+ + + + | ALP, | 68 | 31 - 120 | EXTERNAL | [...] +---------+ + + External Lab: Bilirubin, Total (05/21/2018) + +-------+ + + + | Component [...] + +---------+ + + External Lab: Albumin (05/21/2018) + +-------+ + + + | Component [...] +---------+ + + External Lab: Protein, Total (05/21/2018) + +---------+ + + + | Component | Value | Ref Range | Performed | Pathologist | | | | | At | Signature | + +---------+ + + + | Protein, | 5.8 (A) | 6 - 8.3 | EXTERNAL | | | Total, | [...] + +---------+ + + External Lab: Phosphorus (05/21/2018) + +-------+ + + + | Component | Value | Ref Range | Performed | Pathologist | | | | | At | Signature | + +-------+ + + + | Phosphorus, | 2.7 | 2.5 - 5 | EXTERNAL | [...] + +---------+ + + External Lab: Calcium (05/21/2018) + +-------+ + + + | Component | Value | Ref Range | Performed | Pathologist | | | | | At | Signature | + +-------+ + + + | Calcium, | 9.5 | 8.5 - 10.3 | EXTERNAL | | | External | [...] +---------+ + + External Lab: Carbon Dioxide (05/21/2018) + +-------+ + + + | Component | Value | Ref Range | Performed | Pathologist | | | | | At | Signature | + +-------+ + + + | Carbon | 24 | 19 - 31 | EXTERNAL | [...] + +---------+ + + External Lab: Chloride (05/21/2018) + +-------+ + + + | Component [...] + +---------+ + + External Lab: Potassium (05/21/2018) + +-------+ + + + | Component | Value | Ref Range | Performed | Pathologist | | | | | At | Signature | + +-------+ + + + | Potassium, | 4.4 | 3.6 - 5.1 | EXTERNAL | [...] + +---------+ + + External Lab: Sodium (05/21/2018) + +-------+ + + + | Component | Value | Ref Range | Performed | Pathologist | | | | | At | Signature | + +-------+ + + + | Sodium, | 143 | 132 - 143 | EXTERNAL | [...] + +---------+ + + External Lab: Triglycerides (05/21/2018) + +-------+ + + + | Component | Value | Ref Range | Performed | Pathologist | | | | | At | Signature | + +-------+ + + + | Triglycerid | 108 | 30 - 150 | EXTERNAL | [...] +---------+ + + External Lab: Cholesterol, HDL (05/21/2018) + +-------+ + + + | Component | Value | Ref Range | Performed | Pathologist | | | | | At | Signature | + +-------+ + + + | HDL | 64 | 40 mg/dl | EXTERNAL | | [...] +---------+ + + External Lab: Cholesterol, Total (05/21/2018) + +-------+ + + + | Component | Value | Ref Range | Performed | Pathologist | | | | | At | Signature | + +-------+ + + + | Cholesterol | 160 | 200 mg/dl | EXTERNAL | | [...] +---------+ + + External Lab: Cholesterol, LDL (05/21/2018) + +-------+ + + + | Component | Value | Ref Range | Performed | Pathologist | | | | | At | Signature | + +-------+ + + + | LDL | 74 | 100 | EXTERNAL | | | [...] + +---------+ + + External Lab: eGFR (05/21/2018) + +-------+ + + + | Component [...] + +---------+ + + External Lab: Creatinine (05/21/2018) + +-------+ + + + | Component | Value | Ref Range | Performed | Pathologist | | | | | At | Signature | + +-------+ + + + | Creatinine, | 0.97 | 0.4 - 1.25 | EXTERNAL | | | [...]
--- OUTSIDE RECORDS SUMMARY | ~2020-04-30 | XMS | Encounter Summary ---
Demographics + + + | Address | [address] | | | [place] [address] | + + + | Home Phone | | + + + | Preferred Language | Unknown | + + + | Marital Status | | + + + | Lutheran Affiliation | 1013 | + + + | Race | Unknown | + + + | Ethnic Group | Unknown | + + + Author + + + | Author | [facility] | | | and [place] | + + + | Organization | [facility] | | | [...] Team Providers + +------+ + | Care Photo Finisher Name | Role | Phone | + +------+ + PCP | Unavailable | + +------+ + Encounter Details +--------+ + + + + | Date | Type | Department | Care Team | Description | +--------+ + + + + | 02/13/ | Hospital | [facility] | Venkata Rivera, | COPD, severe (HCC) | | 2017 | Encounter | MED CTR PULMONARY | [address] | | | | | [address] | [place] | | | | | [place], | [address] | | | | | [place] [address] | | | | | | [phone] | | | +--------+ + + + [...] JIAN | | | | | | [place] [address] | | | | | | [phone] | | | | | | | | +--------+ + + + + | 07/23/ | Office | Pulmonology | Jt Roman | | 2019 | Visit | | Tony Edwards MD [address] | | | | | | [address] | | | | | | [place] [address] | | | | | | [phone] | | | | | | | | +--------+ + + + + documented as of this encounter Procedures + +--------+ + + + | Procedure Name | Priori | Date/Time | Associated Diagnosis | Comments | | | ty | | | | + +--------+ + + + | PFT PULMONARY | KIARA | 02/13/2017 | COPD, severe (HCC) | | | FUNCTION TESTING | | 1:47 PM | | | | ORDERS | | PDT | | | + +--------+ + + + | DIAGNOSTIC REPORT - | | 02/13/2017 | | Results for this | | EXTERNAL SCAN | | 12:00 AM | | procedure are in the | | | | PDT | | results section. | + +--------+ + + + documented in this encounter Results DIAGNOSTIC REPORT - EXTERNAL SCAN (02/13/2017 12:00 AM PDT) + + + | [...]
--- OUTSIDE RECORDS SUMMARY | ~2020-04-30 | XMS | Encounter Summary ---
Demographics + + + | Address | [address] | | | [place] [address] | + + + | Home Phone [...] Team Providers + +------+ + | Care Western Philosophy Professor Name | Role | Phone | [...] | | | | Combined | | Juan | | | | | forms of | | [place]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-related | | [address] | | | | | cataract, | | [place] | | | | | right eye | | [place] | | | | | Procedures | | [address] | | | | | [place] XCAPSL | | Phone: | | | | | CTRC RMVL | | [phone] | | | | | INSJ IO LENS | | Fax: | | | | | PROSTH W/O | | [phone] | | | | | ECP RIGHT [...] Description | +--------+---------+ + + + | 04/08/ | Surgery | [facility] | Jaun Rivas | RIGHT EXTRACTION | | 2019 | | MED CTR OR INTRA OP | [place] [address] | CATARACT W/ LENS | | | | [address] | [address] [place] | IMPLANT | | | | [place] | [place] [address] | | | | | [address] | [phone] | | | | | [phone] | | | +--------+---------+ + + + [...] + + + | Blood Pressure | 99/84 | 04/08/2020 8:21 AM | | | | | PDT | | + + + + + | Pulse | 65 | 04/08/2020 8:21 AM | | | | | PDT | | + + + + + | Temperature | 36.4 C (97.5 F) | 04/08/2020 6:50 AM | | | | | PDT | | + + + + + | Respiratory Rate | 16 | 04/08/2020 8:21 AM | | | | | PDT | | + + + + + | Oxygen Saturation | 96% | 04/08/2020 8:21 AM | | | | | PDT [...] + documented in this encounter Discharge Instructions Instructions Jaun Rivas MD - 04/08/2020FOLLOWING SURGERY: Wear the patch and shield until [...] symptoms, immediately call your eye doctor or [facility] at (dial "9" after hours or on [...] Rivas MD, 04/08/2020 7:47 AM PDT [facility] inan Pepper RN - 04/04/2020 11:10 AM PDTPRE-PROCEDURE COVID TEST Affix Patient Label [] Photo ID Verified Patient Name:Sierra Roman Provider:MACEY Chavez :1950 Date:04/04/20 MyChart: Pending Activation Symptom Screen: Are you experiencing any of the following symptoms? [] Cough: duration of cough? ___ days ? If symptoms or cough >10 days, send to UC for provider evaluation [] Shortness of breath [...] - testing requested by authorized [facility] personnel, [facility] Infection Prevention Nurse or Caregiver Health [...] phacoemulsification with intraocular lens implant, right eye (39333) Implant: Lanier PCB00 20.0 D, SN [id number] Surgeon: Jaun Rvias MD Anesthesia: Monitored Anesthesia Care Technique/Procedure Description: After the patient's eye prepped and draped in the usual [facility] ophthalmic manner, a lid speculum was placed [...] [address] | | | | | | [place] [address] | | | | | | [phone] | | | | | | | | +--------+ + + + + | 07/23/ | Office | Pulmonology | Jt Roman | | | 2019 | Visit | | Tony Edwards MD [address] | | | [address] | | | | | | [place] [address] | | | | | | [phone] | | | | | | | [...] | | | POC | | | [facility] | | [...] + | [facility] | [address] | [place] | [phone] | | [facility] | | [address] | | | - LABORATORY | | [...] [address] | [place] | [phone] | | [facility] | | [address] | | | - LABORATORY | | | | + + + + + documented in this encounter Visit Diagnoses + + | Diagnosis | + + | Combined forms of age-related cataract, right eye | + + documented in this encounter Administered Medications + +--------+---------+------+------+------+ | Medication Order | MAR | Action | Dose | Rate | Site | | | Action | Date | | | | + +--------+---------+------+------+------+ + +---+ | albuterol-ipratropium 2.5-0.5 | | | mg/3 mL nebulizer solution 3 mL | | | 3 mL, Nebulization, ONCE PRN, | | | Wheezing, Starting [facility] 04/08/20 at | | | 0613, For 1 dose, Pre-op | | + +---+ | | | + +---+ + +-------+ + +---+ + | balanced salts sterile | Given | 04/08/20 | 1 | | Surgical | | ophthalmic irrigation solution | | 20 8:06 | Applicat | | Site | | PRN, Starting [facility] 04/08/20 at 0806, | | AM PDT | ion | | | | Intra-op | | | | | | + +-------+ + +---+ + +---+---+ | | | +---+---+ + +-------+ +-------+---+ + | BSS 2.25ML + lidocaine 4% | Given | 04/08/20 | 3 mLs | | Surgical | | 0.75ML + EPINEPHrine (1:1000) 1ML | | 20 8:04 | | | Site | | one step ophthalmic solution | | AM PDT | | | | | PRN, Starting [facility] 04/08/20 at 0804, | | | | | | | Intra-op | | | | | | + +-------+ +-------+---+ + + +---+ | | | + +---+ | dextrose 50% injection 12.5-25 | | | g 12.5-25 g, Intravenous, EVERY | | | 15 MIN PRN, Low Blood Sugar, Give | | | 12.5g (25 mL) IV if blood | | | glucose 50-69 mg/dL. Give 25g | | | (50 mL) IV if blood glucose < 50, | | | Starting [facility] 04/08/20 at 0613, | | | Repeat in 15 min if blood glucose | | | remains < 70 mg/dL. Repeat | | | blood glucose in 30 min once | | | blood glucose > 70., Pre-op | | + +---+ | | | + +---+ + +-------+ +-------+---+ + | hyaluronate & chondroitin | Given | 04/08/20 | 1 kit | | Surgical | | hyaluronate (DUOVISC) intraocular | | 20 8:08 | | | Site | | kit PRN, Starting Sun04/08/20 at | | AM PDT | | | | | 0808, Intra-op | | | | | | + +-------+ +-------+---+ + +---+---+ | | | +---+---+ + + + +---+---+---+ | lactated ringers (LR) infusion | Continue | 04/08/20 | | | | | at 10-100 mL/hr, Intravenous, | d by | 20 7:58 | | | | | CONTINUOUS, Starting Sun04/08/20 | Anesthes | AM PDT | | [...] PDT | | | | | Starting [facility] 04/08/20 at 0626, For | | | [...] +---+---+ | | | +---+---+ + +-------+ + +---+ + | lidocaine (XYLOCAINE) 2% jelly | Given | 04/08/20 | 1 | | Surgical | | (uro-jet) PRN, Starting [facility] | | 20 8:05 | Applicat | | Site | | 04/08/20 at 0805, Intra-op | | AM PDT | ion | | | + +-------+ + +---+ + +---+---+ | | | +---+---+ + +-------+ +--------+---+ + | moxifloxacin (VIGAMOX) 0.5 % | Given | 04/08/20 | 0.5 mg | | [facility] | | intracameral injection PRN, | | 20 8:14 | | | t | | Starting [facility] 04/08/20 at 0814, | | AM PDT | | | | | Intra-op | | | | | | + +-------+ +--------+---+ + +---+---+ | | | +---+---+ + +-------+ +--------+---+---+ | phenylephrine (LUANN-SYNEPHRINE) | Given | 04/08/20 | 1 drop | | | | 2.5% ophthalmic solution 1 drop | | 20 7:03 | | | | | 1 drop, Right Eye, Prior to | | AM PDT | | | | | Incision, Starting [facility] 04/08/20 at | | | | | [...] +---+---+ | | | +---+---+ + +-------+ +--------+---+ + | pilocarpine (ISOPTO CARPINE) 1% | Given | 04/08/20 | 1 drop | | Surgical | | ophthalmic solution PRN, | | 20 8:17 | | | Site | | Starting [facility] 04/08/20 at 0817, | | AM PDT | | | | | Intra-op | | | | | | + +-------+ +--------+---+ + +---+---+ | | | +---+---+ + +-------+ +---------+---+ + | povidone-iodine 5 % ophthalmic | Given | 04/08/20 | 2 drops | | Surgical | | solution PRN, Starting [facility] | | 20 7:56 | | | Site | | 04/08/20 at 0756, Intra-op | | AM PDT | | | | + +-------+ +---------+---+ + +---+---+ | | | +---+---+ + +-------+ +--------+---+---+ | proparacaine (ALCAINE) 0.5% | Given | 04/08/20 | 1 drop | | | | ophthalmic solution 1 drop 1 | | 20 6:38 | | | | | drop, Right Eye, Prior to | | AM PDT | | | | | Incision, Starting [facility] 04/08/20 at | | | | | [...] +---+---+ | | | +---+---+ + +-------+ +--------+---+ + | proparacaine (ALCAINE) 0.5% | Given | 04/08/20 | 1 drop | | Surgical | | ophthalmic solution PRN, | | 20 7:55 | | | Site | | Starting [facility] 04/08/20 at 0755, | | AM PDT | | | | | Intra-op | | | | | | + +-------+ +--------+---+ + +---+---+ | | | +---+---+ + +-------+ +------+---+ + | triamcinolone acetonide | Given | 04/08/20 | 5 mg | | Surgical | | (KENALOG-10) 10 mg/mL injection | | 20 8:18 | | | Site | | PRN, Starting [facility] 04/08/20 at 0818, | | AM PDT | | | | | Intra-op | | | | | | + +-------+ +------+---+ + +---+---+ | | | +---+---+ + +-------+ +--------+---+---+ | tropicamide (MYDRIACYL) 1% | Given | 04/08/20 | 1 drop | | | | ophthalmic solution 1 drop 1 | | 20 7:03 | | | | | drop, Right Eye, Prior to | | AM PDT | | | | | Incision, Starting [facility] 04/08/20 at | | | | | [...]
--- OUTSIDE RECORDS SUMMARY | ~2020-04-30 | XMS | Encounter Summary ---
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 | | | | [address] | [address] [place] | (Primary Dx); 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
[~2020-04-30 16:33] MED LIST: AMLODIPINE BESY10 MG PO; ASMANEX0.24 GM INH; ASPIRIN EC81 MG PO; CALCIUM + D3 E1 EACH PO; COZAAR100 MG PO; DULCOLAX5 MG PO; FORADIL1 INHALATI INH; LASIX40 MG PO; LISINOPRIL10 MG PO; METOPROLOL SUCC50 MG PO; OMEPRAZOLE20 MG PO; PROVENTIL HFA6.7 GM INH; SIMVASTATIN20 MG PO; VENTOLIN HFA18 GM INH; ZOLPIDEM TARTRA10 MG PO
[2020-04-30] MEDS ORDERED: PREDNISONE20 MG PO (16:46)
[2020-04-30] MEDS ORDERED: BENZONATATE100 MG PO (16:47)
[2020-04-30] MEDS ORDERED: DOXYCYCLINE MO100 MG PO (16:47)
[2020-04-30] MEDS ORDERED: TESSALON PERLE100 MG PO (19:01)
[2020-04-30] MEDS ORDERED: SPIRIVA18 MCG INH (19:04)
[2020-04-30] MEDS ORDERED: SYMBICORT 16010.2 GM INH (19:05)
[2020-04-30] MEDS ORDERED: IPRAT-ALBUT 0.5-3 ML INH (19:07)
[2020-04-30] MEDS ORDERED: FLOVENT DISKUS50 MCG INH (19:09)
[2020-04-30] MEDS ORDERED: ZYRTEC10 M3 PO (19:10)
[2020-04-30] MEDS ORDERED: GLUCOPHAGE500 MG PO (19:10)
[2020-04-30] MEDS ORDERED: FLOMAX0.4 MG PO (19:11)
[2020-04-30] MEDS ORDERED: FISH OIL 1,0001 EAC7 PO (19:12)
[2020-04-30] MEDS ORDERED: CITALOPRAM HBR10 MG PO (19:13)
[2020-04-30] MEDS ORDERED: SINGULAIR10 MG PO (19:14)
[2020-04-30] MEDS ORDERED: GLIPIZIDE XL2.5 MG PO (19:15)
[2020-04-30] MEDS ORDERED: MUCINEX600 MG PO (19:16)
[2020-04-30] MEDS ORDERED: ALIVE ONCE DAI1 EACH PO (19:17)
[2020-04-30] MEDS ORDERED: B12 ACTIVE1000 MCG PO (19:18)
[2020-04-30] MEDS ORDERED: D3 + K2 DOTS 11 EACH PO (19:20)
--- NOTE | 2020-05-01 13:12 | EKG ---
[facility] [address] [facility] [place], [place] [address] Signed Sinus tachycardia Left axis deviation Pulmonary disease pattern Inferior infarct , age undetermined Abnormal ECG No previous ECGs available Confirmed by DILNA SCOTT DO ([id number]) on 05/01/2020 1:12:22 PM Electronically Signed By: DILAN SCOTT DO 05/01/20 1312 PATIENT NAME: FABIOJOANEarl MUÑIZ Electrocardiogram DATE OF : 48 PHYSICIAN: DILAN SCOTT DO REPORT #: [id number] REPORT IS CONFIDENTIAL AND NOT TO BE RELEASED WITHOUT AUTHORIZATION
--- NOTE | 2020-05-02 22:17 | PATH ---
[facility] [address] [place], [place] [address] Signed ORDERING PHYSICIAN: Heron Artis MD PATIENT NAME: JOAN MCCARTHY GENDER: Nisreen : 1950 SPECIMEN(S): MOLECULAR PATHOLOGY RESULTS: SARS-CoV-2 Not Detected ADDITIONAL NOTES.: The [place] Fusion SARS-CoV-2 Assay is a multiplex real-time PCR (RT-PCR) in vitro diagnostic test intended for the qualitative detection of RNA from SARS-CoV-2 from individuals who meet COVID-19 clinical and/or epidemiological criteria. In general, SARS-CoV-2 RNA can be detected during the acute phase of infection. Positive results indicate the presence of SARS-CoV-2 RNA. Clinical correlation with patient history and other diagnostic information is necessary to determine patient infection status. Positive results do not rule out bacterial infection or co-infection with other viruses. Negative results do not preclude SARS-CoV-2 infection and should not be used as the sole basis for patient management decisions. Negative results must be combined with other clinical observations, patient history, and epidemiological information. The [place] Fusion SARS-CoV-2 Assay is not yet approved or cleared by the [place] FDA. When there are no FDA-approved or cleared tests available, and other criteria are met, FDA can make tests available under an emergency access mechanism called an Emergency Use Authorization (EUA). The EUA for this test is supported by the [place] of Health and Human Service's (HHS's) declaration that circumstances exist to justify the emergency use of in vitro diagnostics for the detection and/or diagnosis of the virus that causes COVID-19. This EUA will remain in effect for the duration of the COVID-19 declaration justifying emergency of IVDs, unless it is terminated or revoked by FDA, after which the test may no longer be used. The [place] Fusion SARS-CoV-2 Assay is for use only under EUA in US laboratories certified under the Clinical Laboratory Improvement Amendments of 1988 (CLIA) to perform high complexity tests. [facility] is certified under CLIA to perform high complexity PATIENT NAME: JOAN MCCARTHY PATHOLOGY DATE OF : [birth year] REPORT #: [id number] PHYSICIAN: ALPHONSO CRESPO PCP: MANI WILKERSON MD REPORT IS CONFIDENTIAL AND NOT TO BE RELEASED WITHOUT AUTHORIZATION [address] [address] Signed clinical laboratory testing. PERFORMING LABORATORY.: Molecular testing was performed by [facility] [address] [place], [place] [address] [address] (Brinell Tester: Leander Wang D.O.; CLIA#: [id number]) Diagnostician: System Interface Pathologist Electronically Signed 05/02/2020 Copies: ~ PATIENT NAME: JOAN MCCARTHY PATHOLOGY DATE OF : [birth year] REPORT #: [id number] PHYSICIAN: ALPHONSO PATHOLOGY PCP: MANI WILKERSON MD REPORT IS CONFIDENTIAL AND NOT TO BE RELEASED WITHOUT AUTHORIZATION
== END 2020-04-30 19:26 | disposition home or self-care (01) ==
LOC: ED 16:33
DX: J44.1 Chronic obstructive pulmonary disease with (acute) exacerbation (principal); E11.9 Type 2 diabetes mellitus without complications; Z87.891 Personal history of nicotine dependence; Z88.0 Allergy status to penicillin; Z79.899 Other long term (current) drug therapy; Z79.82 Long term (current) use of aspirin
CPT/HCPCS: 71045; 80053; 84484; 85025; 93005; 93010; 94644; 96374; 99285-25; C9803; J2930

== ENCOUNTER → 2020-09-22 | Emergency (ER) | payer MEDICARE, OTHER ==
[~2020-09-22] VITALS: Ht 182.9 cm; Wt 88.0 kg
[~2020-09-22] MED LIST changes: +ALIVE ONCE DAI1 EACH PO; +B12 ACTIVE1000 MCG PO; +BACTRIM DS TAB1 EACH PO; +BENZONATATE100 MG PO; +CITALOPRAM HBR10 MG PO; +D3 + K2 DOTS 11 EACH PO; +DOXYCYCLINE MO100 MG PO; +FISH OIL 1,0001 EAC7 PO; +FLOMAX0.4 MG PO; +FLOVENT DISKUS50 MCG INH; +GLIPIZIDE XL2.5 MG PO; +GLUCOPHAGE500 MG PO; +IPRAT-ALBUT 0.5-3 ML INH; +KEFLEX500 MG PO; +MUCINEX600 MG PO; +PREDNISONE20 MG PO; +SINGULAIR10 MG PO; +SPIRIVA18 MCG INH; +SYMBICORT 16010.2 GM INH; +TESSALON PERLE100 MG PO; +ZYRTEC10 M3 PO
== END ==
LOC: ED 20:53
DX: L03.115 Cellulitis of right lower limb (principal); J44.9 Chronic obstructive pulmonary disease, unspecified; E11.9 Type 2 diabetes mellitus without complications; Z87.891 Personal history of nicotine dependence; Z88.0 Allergy status to penicillin; Z88.8 Allergy status to other drugs, medicaments and biological substances; Z79.899 Other long term (current) drug therapy; Z79.82 Long term (current) use of aspirin; Z79.52 Long term (current) use of systemic steroids; Z79.84 Long term (current) use of oral hypoglycemic drugs
CPT/HCPCS: 73630; 99283-25

== ENCOUNTER 2022-04-04 11:40 | Observation (INO) | payer MEDICARE, OTHER ==
[~2022-04-04] VITALS: Ht 182.9 cm; Wt 88.3 kg
[~2022-04-04 11:40] MED LIST changes: -ASPIRIN EC81 MG PO; -B12 ACTIVE1000 MCG PO; -COZAAR100 MG PO; +COZAAR25 MG PO; +DIALYVITE 800-1 EAC2 PO; -GLUCOPHAGE500 MG PO; +LOW DOSE ASPIRI81 MG PO; +METFORMIN HCL500 MG PO
--- NOTE | 2022-04-04 14:51 | NUR ---
Stopped to see pt, pt has not arrived at this time.
--- NOTE | 2022-04-04 15:15 | NUR ---
Report received from Roxanne MCKENZIE in ED. Awaiting patient arrival to MS floor 108.
--- NOTE | 2022-04-04 16:00 | NUR ---
Pt arrives to [facility] unit via stretcher, able to transfer self to bed. Pt arrives on 2L NC O2, pt ambulates to BR on RA to void and spo2 94%, continued on RA at this time. RT in room for [facility] tx. Fine crackles noted bilat lower lungs, scattered coarseness/exp wheeze. Pt has coughing with exertion and deep breathing. Scheduled medications administered, IVF infusing. Pt oriented to room/call light system. Hx and admission assessment completed. No needs at this time.
--- NOTE | 2022-04-04 17:07 | NUR ---
Sched meds administered. IVF infusing, pt sitting up eating dinner and watching tv. NO needs at this time.
[2022-04-04] MEDS ORDERED: AZITHROMYCIN500 MG PO (17:14)
[2022-04-04] MEDS ORDERED: ARNUITY ELLIPT50 MCG NAS (17:26)
[2022-04-04] MEDS ORDERED: HYDROXYZINE HCL25 MG PO (17:30)
[2022-04-04] MEDS ORDERED: ALLOPURINOL100 MG PO (17:31)
[2022-04-04] MEDS ORDERED: FUROSEMIDE40 MG PO (17:32)
[2022-04-04] MEDS ORDERED: VITAMIN D3125 MC1 PO (17:38)
[2022-04-04] MEDS ORDERED: CALCIUM 600 MG1 EA11 PO (17:39)
--- NOTE | 2022-04-04 19:30 | NUR ---
REPORT RECEIVED FROM DAY SHIFT RN. PT LYING IN BED ALERT AND ORIENTED. DENIES NEEDS. WHITE BOARD UPDATED. CALL LIGHT IN REACH. AT BED SIDE. BED ALARM FOR SAFETY.
--- NOTE | 2022-04-04 22:23 | NUR ---
EVENING ASSESSMENT COMPLETE. SCHEDULED MEDS ADMIN PER EMAR. PT DENIES PAIN OR NAUSEA. SBA TO BR TO VOID 350 ML CLEAR YELLOW URINE. PT HAS TO SIT ON SIDE OF BED BEFORE GETTING UP DUE TO DIZZINESS. GAIT STEADY. BACK TO BED, SHARI WELL. REPORTS SOB WITH ACTIVITY. SpO2 94% ON RA. PT ABLE TO SPEAK FULL SENTENCES. LUNGS WITH SCATTERED WHEEZES. 2L/NC PLACED FOR NIGHT. IVF INFUSING WNL. PT DENIES QUESTIONS OR CONCERNS. CALL LIGHT IN REACH. BED ALARM FOR SAFETY.
--- NOTE | 2022-04-05 01:48 | NUR ---
PT RESTING ON LEFT SIDE. AWAKENS EASILY. VS AND I&O COMPLETE. PT DENIES SOB. REPORTS HE IS RESTING WELL. NO NEEDS AT THIS TIME.
--- NOTE | 2022-04-05 04:05 | NUR ---
PT AWAKENED FOR BREATHING TX. REPORTS HE IS "FEELING PRETTY GOOD." SBA TO BR TO VOID. PT REPORTS DIZZINESS UPON STANDING. GAIT STEADY. BACK TO BED, SHARI WELL. DENIES SOB. 2L/NC BACK ON. DENIES NEEDS. CALL LIGHT IN REACH. BED ALARM FOR SAFETY.
--- NOTE | 2022-04-05 06:01 | NUR ---
VS AND I&O COMPLETE. SCHEDULED MEDS ADMIN PER EMAR. PT DENIES PAIN OR NAUSEA. DENIES SOB. 2L/NC IN PLACE. SpO2 99%. PT REPORTS THAT HE SLEPT WELL LAST NOC. FRESH WATER AND COFFEE PROVIDED. PT DENIES FURTHER NEEDS. CALL LIGHT IN REACH.
--- NOTE | 2022-04-05 07:14 | NUR ---
Report received from Scarlet MCKENZIE. Pt resting in bed with eyes closed, even and unlabored respirations on 2L NC O2. Bed alarm in place at this time. No needs identified, call light in reach.
--- NOTE | 2022-04-05 08:11 | NUR ---
Scheduled medications administered and assessment complete. Pt sitting up on bedside eating breakfast and visiting with . Pharmacy in room for med rec. Pt states no pain or SOB at this time, currently on 2L NC O2. Lungs clear, diminished, pt coughs occasionally after deep breathing, non productive. Updated on POC, pt agreeable. No further needs at this time, fresh coffee and water provided, call light in reach
[2022-04-05] MEDS ORDERED: PREDNISONE10 MG PO ×2 (09:26→12:45)
--- NOTE | 2022-04-05 10:20 | NUR ---
Spoke with Sierra and his , Kortney. Both deny needs. Pt has a walker, cane, and wc at home but does not use. They live in a house with 11 steps, pt denies issues getting in and out house. House does have a ramp. states pt could use a new nebulizer as his is 15 years old and was his moms. Let them know I will ask Dr. euceda for an RX. They deny any other needs and plan to go home today. They deny financial issues.
--- NOTE | 2022-04-05 11:43 | EKG ---
[facility] [address] [facility] [place] [address] Signed Normal sinus rhythm Left axis deviation Pulmonary disease pattern Possible Inferior infarct (cited on or before 30-APR-2020) Abnormal ECG When compared with ECG of 30-APR-2020 16:36, Vent. rate has decreased BY 63 BPM Confirmed by MANI WILKERSON MD ([id number]) on 04/05/2022 11:43:35 AM Electronically Signed By: MANI WILKERSON MD 04/05/22 1143 PATIENT NAME: JOAN MCCARTHY Electrocardiogram DATE OF : [birth year] PHYSICIAN: MANI WILKERSON MD REPORT #: [id number] REPORT IS CONFIDENTIAL AND NOT TO BE RELEASED WITHOUT AUTHORIZATION
[2022-04-05] MEDS ORDERED: BENZONATATE100 MG PO (12:42)
[2022-04-05] MEDS ORDERED: CEFPODOXIME PR200 MG PO (12:42)
[2022-04-05] MEDS ORDERED: PSEUDOEPHEDRINE60 MG PO (12:46)
[2022-04-05] MEDS ORDERED: NEBULIZER UNIT XX (12:47)
[2022-04-05] MEDS ORDERED: SYMBICORT 16010.2 GM INH (12:50)
--- NOTE | 2022-04-05 12:53 | NUR ---
PT LAYING IN BED, ALERT AND ORIENTED. PT PLEASANT, WHEN I IDENTIFIED MYSELF, HE STATED HE "DIDN'T NEED MY SERVICES" AT THE MOMENT. PT CONTINUED TO ENGAGE CONVERSATION. PT'S GLYNN ENTERED, LUNCH DELIVERED. PT READY TO EAT. GAVE BLESSING AND WILL FOLLOW
== END 2022-04-05 13:20 | disposition home or self-care (01) ==
LOC: ED 11:40 → MS 11:42
PROVIDERS: ADMIT Internal Medicine; ATTEND Internal Medicine
DX: J44.1 Chronic obstructive pulmonary disease with (acute) exacerbation (principal); E11.22 Type 2 diabetes mellitus with diabetic chronic kidney disease; N18.31 Chronic kidney disease, stage 3a; E78.5 Hyperlipidemia, unspecified; N40.0 Benign prostatic hyperplasia without lower urinary tract symptoms; E79.0 Hyperuricemia without signs of inflammatory arthritis and tophaceous disease; Z66 Do not resuscitate; Z88.0 Allergy status to penicillin; Z88.8 Allergy status to other drugs, medicaments and biological substances; Z20.822 Contact with and (suspected) exposure to COVID-19
CPT/HCPCS: 36415; 71045; 80053; 82803; 83036; 83880; 85025; 87502; 93005; 93010; 94640; 94760; 96372; 96374; 96375; 96376; 99285-25; C9803; G0378; J0696; J1650; J1815; J2930; J7121; U0003

== ENCOUNTER 2022-08-18 14:08 | Inpatient (IN) | payer OTHER, MEDICARE ==
[~2022-08-18] VITALS: Ht 182.9 cm; Wt 91.0 kg
[~2022-08-18 14:08] MED LIST changes: +ALLOPURINOL100 MG PO; +ARNUITY ELLIPT50 MCG NAS; +AZITHROMYCIN500 MG PO; +CALCIUM 600 MG1 EA11 PO; +CEFPODOXIME PR200 MG PO; +FUROSEMIDE40 MG PO; +HYDROXYZINE HCL25 MG PO; +NEBULIZER UNIT XX; +PREDNISONE10 MG PO; +PSEUDOEPHEDRINE60 MG PO; +VITAMIN D3125 MC1 PO
--- NOTE | 2022-08-18 18:56 | NUR ---
PT ARRIVES TO CCU ROOM 126 FOR MED SURG HOUSE CONVENIENCE FOR SOB AND COPD EXAC. ARRIVES ON 3L/O2, ALERT AND ORIENTED. UP TO BATHROOM ON ARRIVAL TO VOID, STEADY ON FEET.
--- NOTE | 2022-08-18 19:30 | NUR ---
ADMIT ASSESSMENT COMPLETE - REMAINS ON 4L O2 VIA NC TO MAINTAIN SPO2>92%. LUNGS COURSE AND DIM THROUGHOUT WITH NON PRODUCTIVE SOB COUGH WITH EXCERTION. PT IN GOOD SPIRITS AND SENSE OF HUMOR. ORIENTED TO ROOM AND RULES FOR TOBACCO USE AND HOME MEDS WHILE IN HOSPITAL - PT STATES UNDERSTANDING.
--- NOTE | 2022-08-18 21:53 | NUR ---
02 TITRATED DOWN TO 3L NC - SPO2 REMAINS >92%.
--- NOTE | 2022-08-19 00:15 | NUR ---
RN IN ROOM TO ASSESS PT - IMPROVED LUNG SOUNDS AFTER NEB TX, STILL VERY POOR AIR MOVEMENT ON LEFT SIDE. CURRENT 02 NEED AT 3L TO MAINTAIN SPO2, WHICH IS HIS HOME DOSE. PT ENCOURAGED TO USE FLUTTER VALVE AND IS - DEMONSTRATES USE. EDEMA IN LOWER EXT UNCHANGED, URINAL AT BEDSIDE EMPTY. VS STABLE.
--- NOTE | 2022-08-19 04:15 | NUR ---
RN IN ROOM TO ASSESS PT - LEFT LUNG HAWLEY REMAIN DIM THROUGHOUT WITH RIGHT SIDE IMPROVED AIR MOVEMENT AFTER NEB TX. PT REMAINS ON 3L O2 TO MAINTAIN SPO2 >92%. NON PRODUCTIVE COUGH REMAINS, FLUTTER VALVE AND IS USED.
--- NOTE | 2022-08-19 05:03 | NUR ---
ICE WATER REFLLED AND COFFEE PROVIDED. PT ASSISTED WITH TV CHANNELS. CONTINUES TO USE CORNET.
--- NOTE | 2022-08-19 06:30 | NUR ---
RN IN ROOM TO ROUND ON PT - PT RESTING IN BED, URINAL EMPTIED. PT DENIES NEEDS AT THIS TIME.
--- NOTE | 2022-08-19 07:30 | NUR ---
REPORT RECEIVED FROM MICHEAL MCKENZIE. PT AWAKE IN BED, DENIES NEEDS.
--- NOTE | 2022-08-19 08:15 | NUR ---
PT HAS JUST FINISHED ALL OF HIS BREAKFAST, NO FURTHER REQUESTS, AM MEDS AND ASSESSMENT DONE. PT IS ALERT AND ORIENTED, ON 3L/O2 WHICH IS HIS CHRONIC NEED. SOB WITH EXERTION, LUNGS COARSE AND DIM, FREQUENT CONGESTED COUGH NOTED. PT USING CORONET INDEPENDANTLY AND IS AT TIMES WELL. DENIES PAIN OR CHEST PRESSURE AT THIS TIME. WHEN ASKED HOW HIS BREATHING FEELS THIS AM HE STATES "WELL I THINK IM DOING PRETTY GOOD LONG I DON'T GET UP, WHEN IM JUST LYING HERE ITS FINE".
--- NOTE | 2022-08-19 08:28 | NUR ---
RESPIRATORY THERAPY IN TO DO DUONEB AND MUCOMYST.
--- NOTE | 2022-08-19 09:32 | NUR ---
DR WILKERSON IN TO SEE PT, OXYGEN TURNED OFF, 91% ON ROOM AIR.
--- NOTE | 2022-08-19 10:00 | NUR ---
SPO2 NOW DOWN TO 86-89% ON ROOM AIR, IN TO CHECK ON PT AND HE STATES "I THINK I NEED A LITTLE OXYGEN", O2 AT 2L/NC.
--- NOTE | 2022-08-19 11:00 | NUR ---
PT JUST AWOKE FROM A NAP, STATES HE WAS SLEEPING WELL. OXYGEN REMAINS AT 2L WITH SPO2 94-96%. RT IN TO DO CPT.
--- NOTE | 2022-08-19 12:24 | NUR ---
PT NOW SITTING UP AT BEDISIDE EATING LUNCH. IN TO VISIT HIM, DENIES NEEDS AT THIS TIME.
[2022-08-19] MEDS ORDERED: PREDNISONE10 MG PO (12:28)
[2022-08-19] MEDS ORDERED: PREDNISONE2.5 MG PO (12:30)
--- NOTE | 2022-08-19 13:45 | NUR ---
IN TO CHECK ON PT, ASSESSMENT DONE, PT STATES HE FEELS LIKE HE IS GETTING BETTER. OXYGEN TURNED DOWN TO 1L SPO2 98% ON 2. HR 90'S, RR 16, PT RESTING IN BED VISITING WITH HIS .
--- NOTE | 2022-08-19 13:58 | EKG ---
[facility] [address] [place] [address] Signed Normal sinus rhythm Left axis deviation Pulmonary disease pattern Inferior infarct , age undetermined Abnormal ECG Confirmed by MANI WILKERSON MD ([id number]) on 08/19/2022 1:58:16 PM Electronically Signed By: MANI WILKERSON MD 08/19/22 1358 PATIENT NAME: JOAN MCCARTHY MARY KAY Electrocardiogram DATE OF : [birth year] PHYSICIAN: MANI WILKERSON MD REPORT #: [id number] REPORT IS CONFIDENTIAL AND NOT TO BE RELEASED WITHOUT AUTHORIZATION
[2022-08-19] MEDS ORDERED: WIXELA 250-501 EACH INH (16:07)
[2022-08-19] MEDS ORDERED: FLONASE ALLERG9.9 ML NAS (16:08)
[2022-08-19] MEDS ORDERED: BENZONATATE100 MG PO (16:09)
[2022-08-19] MEDS ORDERED: TOPROL XL50 MG PO (16:09)
[2022-08-19] MEDS ORDERED: VITAMIN B-12500 MCG PO (16:10)
[2022-08-19] MEDS ORDERED: ZINC50 M2 PO (16:11)
[2022-08-19] MEDS ORDERED: CALCIUM 600 MG1 EAC8 PO (16:14)
[2022-08-19] MEDS ORDERED: PROBIOTIC1 EAC1 PO (16:15)
[2022-08-19] MEDS ORDERED: VITAMIN C500 M1 PO (16:16)
--- NOTE | 2022-08-19 16:17 | NUR ---
MED REC COMPLETE
--- NOTE | 2022-08-19 16:30 | NUR ---
FRIEND IN TO VISIT PT.
--- NOTE | 2022-08-19 17:30 | NUR ---
BLOOD SUGAR DONE, PT SITTING UP IN BED TO EAT DINNER.
--- NOTE | 2022-08-19 18:30 | NUR ---
IN TO GIVE SOLUMEDROL, PT RESTING, TAKING A NAP, AWAKENS EASILY AND DENIES NEEDS.
--- NOTE | 2022-08-19 19:08 | NUR ---
SPO2 93% ON 2L/O2, RESTING WITH EYES CLOSED.
--- NOTE | 2022-08-19 19:51 | NUR ---
REPORT RECEIVED FROM NIGHT RN - PT RESTING IN BED WATCHING TV. 02 AT 1L VIA NC, SPO2 94%. PT REPORTS FEELING BETTER AND NOTES PRODUCTIVE COUGH. CALL LIGHT AT SIDE, PT DENIES NEEDS AT THIS TIME.
--- NOTE | 2022-08-19 20:30 | NUR ---
PT OVERHEARD AMBULATING IN ROOM INDEPENDENTLY - RN TO ROOM FOUND PT TRIPODING ON END OF BED - RETURNING FROM BATHROOM, NC IN PLACE AT 1L, TITRATED TO 2L. PT BACK TO BED WITH SOB RESOLVING AFTER APPROX 5 MIN. PT EDUCATED ON IMPORTANCE OF KEEPING SPO2 MONITOR ON FINGER WHILE AMBULATING AND USING CALL LIGHT FOR ASSISTANCE. CORNET AND IS USED, PT NOTES GREEN/YELLOW COLOR TO SPUTUM PRODUCED. EVENING CARES COMPLETE AND PT READIED FOR SLEEP.
--- NOTE | 2022-08-20 02:10 | NUR ---
RN IN ROOM TO ADMINISTER SCHEDULED MEDICATION. PT AWAKE AND USING URINAL. IMPROVED SOB WITH AMBULATION TO BATHROOM, REMAINS ON 1L VIA NC TO MAINTAIN SPO2. PT DENIES FURTHER NEEDS AT THIS TIME.
--- NOTE | 2022-08-20 05:25 | NUR ---
RN IN ROOM TO ASSESS PT - PT WAKES EASILY AND REQUESTS COFFEE. IMPROVED AIR FLOW MOVEMENT ON LEFT SIDE, ALL LUNG HAWLEY CLEAR. PT DENIES SOB, REMAINS ON 1L 02, STATES HE HASNT WOKEN UP AND FELT THIS COMFORTABLE BREATHING "IN A LONG TIME". PT DENIES FURTHER NEEDS. CALL LIGHT IN REACH.
--- NOTE | 2022-08-20 06:55 | NUR ---
PATIENT SET UP FOR SHOWER BY STAFF. TOOK SHOWER WITH LIMITED ASSIST. AND DRESSED WITH MINIMAL ASSIST. PATIENT TOLERATED ON 1L NC. O2 SATS 88-93% WITH ACTIVITY. RR 20-28. PATIENT CONTINUES TO USE HIS CPT AT BEDSIDE. DENIES ANY FURTHER NEEDS. CALL LIGHT IN REACH.
--- NOTE | 2022-08-20 07:22 | NUR ---
REPORT RECEIVED FROM ALBAN MCKENZIE. PT AWAKE IN BED TALKING ON THE PHONE, 1L/O2, SPO2 98%.
--- NOTE | 2022-08-20 07:58 | NUR ---
PT SAT UP AND ATE BREAKFAST, HAD BEEN ON 1L, REMOVED OXYGEN AND HE REMAINS 96-98% ON ROOM AIR WHILE SITTING UP AT BEDSIDE EATING. LUNGS DIM, FEW COARSE SOUNDS HEARD THROUGHOUT. PT STATES HE HAS BEEN COUGHING UP MORE SPUTUM AND IS OVERALL FEELING BETTER. DENIES SOB AND PAIN.
--- NOTE | 2022-08-20 08:40 | NUR ---
RT HAS JUST BEEN IN DOING CPT AND NEB TX, DR RICE IN TO ROUND ON PT.
--- NOTE | 2022-08-20 10:45 | NUR ---
IN TO GIVE SOLUMEDROL, PT WATCHING TV, DENIES NEEDS.
--- NOTE | 2022-08-20 12:10 | NUR ---
LUNCH BROUGHT IN TO PT, PT UP TO BEDSIDE TO EAT, DENIES NEEDS, REMAINS ON ROOM AIR.
--- NOTE | 2022-08-20 14:18 | NUR ---
PT RESTING WITH EYES CLOSED, SPO2 93% ON ROOM AIR, HR 70'S.
--- NOTE | 2022-08-20 16:00 | NUR ---
REPORT GIVEN TO MISBAH MCKENZIE, PT THEN TRANSFERRED TO MED SURG UNIT WITH HEADEND TECHNICIAN AND ALEXANDRA RN.
--- NOTE | 2022-08-20 16:15 | NUR ---
RECIEVED HAND OFF REPORT FROM JONAH CHILDERS.
--- NOTE | 2022-08-20 16:45 | NUR ---
PT TRANSFERRED TO ROOM 109 VIA STRETCHER AT THIS TIME.
--- NOTE | 2022-08-20 16:58 | NUR ---
ASSESSMENT COMPLETE. PT SITTING ON SIDE OF BED EATING DINNER. DENIES PAIN AT THIS TIME. COURSE BILAT BASES IN LOBES. PT CONTIUNES TO USE VIBRAPEP AND I.S. CALL LIGHT WITHIN REACH.
--- NOTE | 2022-08-20 19:00 | NUR ---
REPORT RECEIVED FROM OFFGOING RN. PT RESTING IN BED, DENIES NEEDS. CALL LIGHT IN REACH.
--- NOTE | 2022-08-20 20:39 | NUR ---
CHARGE ROUNDING COMPLETED. VITALS TAKEN AND RECORDED. WARM BLANKET PROVIDED. PRIMARY RN IN ROOM.
--- NOTE | 2022-08-20 20:57 | NUR ---
PT ASSESSMENT COMPLETE. PT RESTING IN BED. DENIES PAIN, NAUSEA, OR SOB. STATES THAT HE BECOMES SOB WITH ACTIVITY, NONE AT REST. NO COUGH NOTED DURING ASSESSMENT. LUNG SOUNDS DIMINISHED IN BILATERAL LOWER LOBES. CLEAR IN BILATERAL UPPER LOBES. IV FLUSHED WITH 10 ML NS. SL. IV LEAKING AT HUB, CONNECTION TIGHTENED, NO LEAKING REMAINING. SCHEDULED MEDICATIONS ADMINISTERED. VS OBTAINED, WNL. ICE WATER AND WARM BLANKET PROVIDED. PT DENIES FURTHER NEEDS AT THIS TIME. CALL LIGHT IN REACH.
--- NOTE | 2022-08-20 23:49 | NUR ---
PT ROUNDING. PT RESTING IN BED AWAKE WATCHING TV. ICE WATER REFILLED, URINAL EMPTIED. COMB PROVIDED PER REQUEST. PT STATES THAT HE IS READY FOR NEB, RT NOTIFIED. PT DENIES FURTHER NEEDS AT THIS TIME. CALL LIGHT IN REACH.
--- NOTE | 2022-08-21 02:21 | NUR ---
PT ROUNDING. PT RESTING IN BED WITH EYES CLOSED, LYING ON L SIDE FACING THE DOOR. PT APPEARS TO BE SLEEPING. DOES NOT WAKE WHILE MEDICAL FEE CLERK AT DOORWAY.
--- NOTE | 2022-08-21 03:12 | NUR ---
PT ASSESSMENT COMPLETE. PT RESTING IN BED WITH EYES CLOSED. WAKES EASILY TO VOICE. PT DENIES PAIN, NAUSEA, OR SOB. LUNG SOUNDS DIMINISHED IN BILATERAL LOWER LOBES. CLEAR IN BILATERAL UPPER LOBES. NO COUGH NOTED DURING ASSESSMENT. IV FLUSHED PRIOR TO SCHEDULED MEDICATION ADMINISTRATION. IV FOUND TO BE LEAKING FROM INSERTION SITE. IV DC'D BY THIS SUSTAINABILITY COACH, NEW IV STARTED IN L AC. PT TOLERATED WELL. BRISK BLOOD RETURN NOTED. PT DENIES QUESTIONS, CONCERNS, OR NEEDS AT THIS TIME. CALL LIGHT IN REACH.
--- NOTE | 2022-08-21 05:22 | NUR ---
PT IN BED. VITALS AND IS AND OS COMPLETE. PT DENIES NEEDING TO USE RESTROOM. PT REFUSED GETTING UP INTO CHAIR AT THIS TIME. NO FURTHER NEEDS. CALL LIGHT WITHIN REACH.
--- NOTE | 2022-08-21 07:20 | NUR ---
REPORT RECEIVED HUAN VILLALBA.
--- NOTE | 2022-08-21 08:47 | NUR ---
ADMINISTERED MEDS INCLUDING SOLUMEDROL EARLY TO REMOVE IV PRIOR TO SHOWER PT WANTS TO SHOWER BEFORE GOIGN HOME. PT STATES HE DOES NOT NEED HELP. CHECKED BATHROOM FOR SAFETY AND SUPPLIES. REMVOED IV. PT DENIES FURTHER NEEDS AND WILL USE BLUE CALL CORD IF NEEDED.
[2022-08-21] MEDS ORDERED: CEFUROXIME500 MG PO (09:23)
--- NOTE | 2022-08-21 09:27 | NUR ---
PT SITTING ON COUCH. VITALS COMPLETE. NO FURTHER NEEDS. CALL LIGHT WITHIN REACH.
[2022-08-21] MEDS ORDERED: PREDNISONE20 MG PO ×2 (10:01→10:06)
== END 2022-08-21 10:55 | disposition home or self-care (01) | DRG 189 ==
LOC: ED 14:08 → CCU 14:09 → MS 08-19 10:01 → CCU 08-19 10:02 → MS 08-20 16:40
PROVIDERS: ADMIT Internal Medicine; ATTEND Family Medicine
DX: J96.01 Acute respiratory failure with hypoxia (principal); J98.11 Atelectasis; Z66 Do not resuscitate; Z20.822 Contact with and (suspected) exposure to COVID-19; N18.31 Chronic kidney disease, stage 3a; E11.22 Type 2 diabetes mellitus with diabetic chronic kidney disease; N40.0 Benign prostatic hyperplasia without lower urinary tract symptoms; K21.9 Gastro-esophageal reflux disease without esophagitis; E78.5 Hyperlipidemia, unspecified; E79.0 Hyperuricemia without signs of inflammatory arthritis and tophaceous disease; F32.A Depression, unspecified; J43.9 Emphysema, unspecified; Z88.0 Allergy status to penicillin; Z88.8 Allergy status to other drugs, medicaments and biological substances; Z87.891 Personal history of nicotine dependence; Z90.89 Acquired absence of other organs; Z98.890 Other specified postprocedural states; Z79.52 Long term (current) use of systemic steroids; Z79.899 Other long term (current) drug therapy
CPT/HCPCS: 36415; 71045; 80053; 83735; 83880; 84484; 85025; 87502; 93005; 93010; 94640; 94667; 94668; 96374; 99285-25; C9803; J1650; J1815; J2930; U0003

== ENCOUNTER 2022-12-18 13:02 | Emergency (ER) | payer OTHER, MEDICARE ==
[~2022-12-18] VITALS: Ht 182.9 cm; Wt 91.0 kg
[~2022-12-18 13:02] MED LIST changes: +CALCIUM 600 MG1 EAC8 PO; +CEFUROXIME500 MG PO; +FLONASE ALLERG9.9 ML NAS; +PREDNISONE2.5 MG PO; +PROBIOTIC1 EAC1 PO; +TOPROL XL50 MG PO; +VITAMIN B-12500 MCG PO; +VITAMIN C500 M1 PO; +WIXELA 250-501 EACH INH; +ZINC50 M2 PO
[2022-12-18] MEDS ORDERED: PREDNISONE10 MG PO (13:20)
[2022-12-18] MEDS ORDERED: PREDNISONE20 MG PO (14:39)
[2022-12-18] MEDS ORDERED: DOXYCYCLINE HY100 MG PO (14:39)
--- NOTE | 2022-12-19 19:28 | EKG ---
[facility] [address] [facility] [place] [address] Signed Normal sinus rhythm Right superior axis deviation Pulmonary disease pattern Inferior infarct (cited on or before 30-APR-2020) Abnormal ECG When compared with ECG of 18-AUG-2022 15:06, Questionable change in initial forces of Inferior leads Confirmed by Chica Rice MD () on 12/19/2022 7:28:01 PM Electronically Signed By: CHICA RICE MD 12/19/22 1928 PATIENT NAME: JOAN MCCARTHY Electrocardiogram DATE OF : [birth year] PHYSICIAN: CHICA RICE MD REPORT #: [id number] REPORT IS CONFIDENTIAL AND NOT TO BE RELEASED WITHOUT AUTHORIZATION
== END 2022-12-18 15:07 | disposition home or self-care (01) ==
LOC: ED 13:02
DX: J44.1 Chronic obstructive pulmonary disease with (acute) exacerbation (principal); E11.9 Type 2 diabetes mellitus without complications; Z87.891 Personal history of nicotine dependence; Z88.0 Allergy status to penicillin; Z88.8 Allergy status to other drugs, medicaments and biological substances; Z79.899 Other long term (current) drug therapy; Z79.52 Long term (current) use of systemic steroids; Z79.82 Long term (current) use of aspirin; Z79.84 Long term (current) use of oral hypoglycemic drugs
CPT/HCPCS: 36415; 71045; 80053; 83880; 84484; 85025; 87502; 93005; 93010; 94644; 96374; 99285-25; C9803; J2930; U0003

== ENCOUNTER 2023-09-08 11:53 | Emergency (ER) | payer OTHER, MEDICARE ==
[~2023-09-08] VITALS: Ht 182.9 cm; Wt 85.8 kg
[~2023-09-08 11:53] MED LIST changes: +DOXYCYCLINE HY100 MG PO; +FISH OIL 1,0001 EAC6 PO; -FISH OIL 1,0001 EAC7 PO; +METFORMIN HCL1000 MG PO; -METFORMIN HCL500 MG PO
[2023-09-08 12:07] LABS: BASOPHILS 0.8 % (0-2); EOSINOPHILS 2.2 % (0-6); HEMATOCRIT 37.8 % (35.0-50.0); HEMOGLOBIN 12.1 g/dL (12.0-18.0); LYMPHOCYTES 8.1 % (24-44); MCH 28.7 (27-36); MCHC 32.1 g/dl (30-36); MCV 89.5 fl (81-99); MONOCYTES 6.4 % (0-12); NEUTROPHILS 82.5 % (39-80); PLATELET COUNT 181 K/uL (140-440); RBC 4.22 M/ul (4.3-5.7); RDW 17.5 (10.5-15.0)
[2023-09-08 12:25] LABS: ALBUMIN 3.6 g/dL (3.4-5.0); ALBUMIN/GLOBULIN RATIO 1.38 (1.1-2.4); ANION GAP 12.2 (7-21); BILIRUBIN, TOTAL 1.1 ng/dL (0.2-1.0); BUN/CREATININE RATIO 15.75 (6.0-28.6); CALCIUM 9.1 mg/dL (8.5-10.1); CREATININE, SERUM 1.46 mg/dL (0.70-1.30); MAGNESIUM 1.6 mg/dL (1.8-2.4); POTASSIUM 4.2 mmol/L (3.5-5.1); PROTEIN, TOTAL 6.2 g/dL (6.4-8.2)
--- NOTE | 2023-09-08 12:43 | EKG ---
[facility] [address] [facility] [place] [address] Signed Sinus tachycardia Left axis deviation Pulmonary disease pattern Inferior infarct (cited on or before 30-APR-2020) Abnormal ECG When compared with ECG of 18-DEC-2022 13:26, No significant change was found Confirmed by KELSEA FARIAS MD ([id number]) on 09/08/2023 12:43:07 PM Electronically Signed By: KELSEA FARIAS 09/08/23 1243 PATIENT NAME: JOAN MCCARTHY Electrocardiogram DATE OF : [birth year] PHYSICIAN: KELSEA FARIAS REPORT #: [id number] REPORT IS CONFIDENTIAL AND NOT TO BE RELEASED WITHOUT AUTHORIZATION
[2023-09-08] MEDS ORDERED: DOXYCYCLINE HY100 MG PO (14:50)
[2023-09-08] MEDS ORDERED: PREDNISONE20 MG PO (14:59)
[2023-09-08 16:28] VITALS: BP 118/74
== END 2023-09-08 16:25 | disposition home or self-care (01) ==
LOC: ED 11:53
PROVIDERS: Emergency Medicine
DX: J43.9 Emphysema, unspecified (principal); E11.9 Type 2 diabetes mellitus without complications; Z87.891 Personal history of nicotine dependence; Z88.0 Allergy status to penicillin; Z88.8 Allergy status to other drugs, medicaments and biological substances; Z79.899 Other long term (current) drug therapy; Z79.84 Long term (current) use of oral hypoglycemic drugs; Z79.82 Long term (current) use of aspirin
CPT/HCPCS: 36415; 71045; 80053; 83735; 83880; 84484; 85025; 93005; 93010; 94644; 96374; 96375; 99285-25; J0696; J2930

== ENCOUNTER 2023-09-11 20:09 | Inpatient (IN) | payer OTHER, MEDICARE ==
[~2023-09-11] VITALS: Ht 182.9 cm; Wt 85.8 kg
[2023-09-11 20:29] LABS: BASOPHILS 0.1 % (0-2); EOSINOPHILS 0.1 % (0-6); HEMATOCRIT 42.9 % (35.0-50.0); HEMOGLOBIN 13.7 g/dL (12.0-18.0); LYMPHOCYTES 1.3 % (24-44); MCV 90.8 fl (81-99); MONOCYTES 2.6 % (0-12); NEUTROPHILS 95.9 % (39-80); PLATELET COUNT 243 K/uL (140-440); RBC 4.72 M/ul (4.3-5.7); RDW 17.8 (10.5-15.0)
[2023-09-11 20:53] LABS: ALBUMIN 3.9 g/dL (3.4-5.0); ALBUMIN/GLOBULIN RATIO 1.39 (1.1-2.4); ANION GAP 18.7 (7-21); BILIRUBIN, TOTAL 0.7 ng/dL (0.2-1.0); BUN/CREATININE RATIO 16.76 (6.0-28.6); CALCIUM 9.2 mg/dL (8.5-10.1); CREATININE, SERUM 1.73 mg/dL (0.70-1.30); POTASSIUM 4.7 mmol/L (3.5-5.1); PROTEIN, TOTAL 6.7 g/dL (6.4-8.2)
[2023-09-11 21:17] LABS: INFLUENZA B NAA NEGATIVE (NEGATIVE); RESPIRATORY SYNCYTIAL VIR NAA NEGATIVE (NEGATIVE)
[2023-09-11 21:27] LABS: LACTIC ACID, BLOOD 8.4 mmol/L (0.4-2.0)
--- NOTE | 2023-09-11 22:48 | NUR ---
2248- PATIENT FABIO ARRIVED FROM ED ON BIPAP AND APPEARS COMFORTABLE. O2 SATS ARE MAINTAINED ABOVE 98%. RT [place] AT BEDSIDE AND PLANS ON PLACING PATIENT ON 3L NC. PATIENT IS ABLE TO EXPRESS NEEDS/CONCERNS/ DESIRES. MOBILIZES WELL AND ABLE TO SHIFT OFF OF GURNEY TO HOSPITAL BED. HTN NOTED AND EXPRESSED TO MD. OTHERWISE VITALS STABLE. SPOUSE GLYNN AT BEDSIDE. SAFETY CHECK PERFORMED. PERSONAL BELONGINGS ON BEDSIDE TABLE ALONG WITH CALL LIGHT. BED IN LOWEST POSITION, PATIENT ORIENTED TO ROOM. ASSESSMENT DOCUMENTED. ABX GTT AND MAINTENANCE GTT HUNG
[2023-09-11 23:15] VITALS: BP 159/76
[2023-09-11 23:30] VITALS: BP 135/87
[2023-09-11 23:45] VITALS: BP 139/73
[2023-09-12] VITALS (17 sets, daily range): BP systolic 128–166; BP diastolic 74–94
--- NOTE | 2023-09-12 00:53 | NUR ---
NOTIFIED MD MATTA OF REPEAT LACTIC ACID OF 5.4MILLIOMOLES FROM 7.4MILLIMOLES. ADDITIONALLY, PATIENT FABIO IS DEVELOPING FINE CRACKLES IN THE UPPER BASES. LACTATED RINGERS BOLUS WAS STOPPED DUE TO THIS. NO NEW ORDERS RECEIVED.
--- NOTE | 2023-09-12 02:33 | NUR ---
PATIENT FABIO ENDORSES SLIGHT SOB. BIPAP BACK IN USE. VSS AND WDL, NO PAIN REPORTED, SPOUSE CONTINUES TO BE AT BEDSIDE.
--- NOTE | 2023-09-12 02:47 | NUR ---
LACTIC ACID 5.4
--- NOTE | 2023-09-12 03:54 | NUR ---
PATIENT MCCARTHY IS NOTED TO BE RESTING COMFORTABLY WITH EYES CLOSED. SPOUSE REMAINS AT BEDSIDE AND ENDORSED COMFORT WITH HER 'S CARE. BIPAP REMAINS IN USE. O2 99%, AND RR 20. SAFETY CHECK PERFORMED.
[2023-09-12 05:26] LABS: PH, VENOUS 7.441 (7.31-7.41)
[2023-09-12 05:28] LABS: BASOPHILS 0.1 % (0-2); EOSINOPHILS 0.5 % (0-6); HEMATOCRIT 35.4 % (35.0-50.0); HEMOGLOBIN 11.5 g/dL (12.0-18.0); LYMPHOCYTES 2.2 % (24-44); MCH 28.9 (27-36); MCHC 32.4 g/dl (30-36); MCV 89.1 fl (81-99); MONOCYTES 3.1 % (0-12); NEUTROPHILS 94.1 % (39-80); PLATELET COUNT 179 K/uL (140-440); RBC 3.97 M/ul (4.3-5.7); RDW 17.4 (10.5-15.0)
[2023-09-12 05:44] LABS: ALBUMIN 3.1 g/dL (3.4-5.0); ALBUMIN/GLOBULIN RATIO 1.29 (1.1-2.4); ANION GAP 12.6 (7-21); BILIRUBIN, TOTAL 0.5 ng/dL (0.2-1.0); BUN/CREATININE RATIO 19.7 (6.0-28.6); CALCIUM 8.6 mg/dL (8.5-10.1); CREATININE, SERUM 1.37 mg/dL (0.70-1.30); POTASSIUM 4.6 mmol/L (3.5-5.1); PROTEIN, TOTAL 5.5 g/dL (6.4-8.2)
--- NOTE | 2023-09-12 05:52 | EKG ---
[facility] [address] [facility] [place] [address] Signed Sinus tachycardia Right superior axis deviation Pulmonary disease pattern Inferior infarct (cited on or before 30-APR-2020) Abnormal ECG When compared with ECG of 08-SEP-2023 11:59, No significant change was found Confirmed by KENRICK MATTA MD ([id number]) on 09/12/2023 5:52:40 AM Electronically Signed By: KENRICK MATTA 09/12/23 0552 PATIENT NAME: JOAN MCCARTHY Electrocardiogram DATE OF : [birth year] PHYSICIAN: KENRICK MATTA REPORT #: [id number] REPORT IS CONFIDENTIAL AND NOT TO BE RELEASED WITHOUT AUTHORIZATION
--- NOTE | 2023-09-12 06:13 | NUR ---
PATIENT FABIO IS A PLEASANT GENTLEMAN WHO IS ABLE TO EXPRESS ALL NEEDS, WANTS, AND DESIRES. HE HAS ENDORSED COMFORT AND HAS HAD MINIMAL NEEDS THROUGHOUT THE SHIFT. LACTIC ACID CONTINUES TO TREND DOWN. LATEST VALUE WAS 3.1 NEURO- ALERT AND ORIENTED. 1P STANDBY ASSIST TO RESTROOM. 5/4 STRENGHT, PUPILS 3+. PERRL, NO PAIN ENDORSED CARDIAC- SR-ST 67-111HR, PERSISTENT HTN CURRENT BP 150/77 (99). ADDRESSED WITH MD MATTA, HOME MEDS WILL BE RESUMED WHEN ABLE. NO EDEMA, AFEBRILE RR- BIPAP THROUGHOUT THE NIGHT 15/8 32% FIO2, BREATH SOUNDS DMINISHED IN BASES, EXPIRATORY WHEEZES AND FINE CRACKLES APPRECIATED, PRODUCTIVE COUGH WITH THICK, YELLOW SPUTUM EXPRESSED GI/- ABLE TO VOID IN URINAL, LAST BM 09/11/23 IN THE AM, NORMOACTIVE BOWEL TONES APPRECIATED IN ALL 4 QUADRANTS, CURRENT STATUS NPO INT- SEE ASSESSMENT LDA- 20G R AC, 20G RH PLAN- RESUME HOME MEDS WHEN ABLE, CONTINUE TO WEEN BIPAP NEED TO BASELINE HOME 02 3LNC, ADDRESS NPO STATUS
--- NOTE | 2023-09-12 07:30 | NUR ---
REPORT RECEIVED. PATIENT IS RESTING ON BIPAP.
--- NOTE | 2023-09-12 08:00 | NUR ---
DR. HUFFMAN HERE TO SEE PATIENT AND TALK WITH WHO IS AT BEDSIDE. PLAN OF CARE DISCUSSED WITH PATIENT AND PATIENT , BOTH INDICATE UNDERSTANDING. ASSESSMENT DONE. REMAINS OF BIPAP AT 15/5, 30% FIO2.
--- NOTE | 2023-09-12 09:40 | NUR ---
AWAKE, BIPAP OFF, O2 AT 3 L NC APPLIED. SIPS OF WATER GIVEN WITH PILLS. TOLERATED WELL. WILL LEAVE PATIENT ON 3 L NC FOR NOW. WILL CONTINUE TO MONITOR RESP STATUS.
--- NOTE | 2023-09-12 10:20 | NUR ---
CONTINUES TO BE OFF BIPAP, NO INCREASE RESP DISTRESS NOTE. REMAINS ON O2 AT 3 L NC.
--- NOTE | 2023-09-12 12:00 | NUR ---
ASSESSMENT DONE. DENIES SHORTNESS OF BREATH. STATES IT FEELS GOOD TO BE ABLE TO BREATH. O2 REMAINS AT 3 L NC. DENIES PAIN OR NAUSEA.
--- NOTE | 2023-09-12 13:15 | NUR ---
DR. HUFFMAN UPDATED ON PATIENT, MD IS AWARE, PATIENT HAS BEEN OFF BIPAP SINCE 939 AND HAS BEEN TAKING SIPS OF WATER. ORDERS RECEIVED FOR 60 CARB GRAM DIET. IVF AT 75 ML/HR. PATIENT HAS BEEN VOIDING TO URINAL.
--- NOTE | 2023-09-12 14:00 | NUR ---
TOOK LUNCH WELL. DENIES NAUSEA. DENIES SHORTNESS OF BREATH.
--- NOTE | 2023-09-12 14:20 | NUR ---
BIPAP REAPPLIED PATIENT GOING TO NAP. NO RESP DISTRESS NOTED.
--- NOTE | 2023-09-12 14:35 | NUR ---
UR NOTE [facility] CHRONIC OBSTRUCTIVE PULMONARY DISEASE (ISC) INPATIENT 09/11/23 MET CLINCIAL INDICATIONS FOR ADMISSION TO INPATIENT CARE
--- NOTE | 2023-09-12 15:00 | NUR ---
NAPPING WITH BIPAP. NO DISTRESS NOTED.
--- NOTE | 2023-09-12 16:00 | NUR ---
CONTINUES TO SLEEP WITH BIPAP ON. WILL NOT WAKE FOR ASSESSMENT.
--- NOTE | 2023-09-12 17:30 | NUR ---
AWAKE, ASSESSMENT DONE. BIPAP OFF, O2 TO NC AT 3 L. HAS BEEN IN BED ALL DAY. HAS BEEN IN ROOM. CONTINUES WITH HARSH COUGH.
--- NOTE | 2023-09-12 17:30 | NUR ---
5 UNITS INSULIN SQ GIVEN OR ACCUCHEK OF 229. SITTING UP IN BED FOR DINNER. IVF INFUSING AT 50 ML/HR.
--- NOTE | 2023-09-12 19:29 | NUR ---
REPORT TO NEXT SHIFT.
--- NOTE | 2023-09-12 20:02 | NUR ---
SBAR REPORT RECEIVED FROM JONAH AN. PATIENT FABIO HAD A PRODUCTIVE DAY AND STATES THAT HE FEELS "MUCH BETTER". ON ASSESSMENT HE ENDORSES COMFORT AND DENIES ANY NEEDS THIS HOUR. HIS GLYNN WENT HOME FOR THE EVENING. ABLE TO VOID IN THE URINAL WITHOUT DIFFICULTY. 2000 CEFTRIAXONE AND NEBULIZER TREATMENT GIVEN. 3L NC IN USE. O2 SATS 94%. WATCHING TV. SAFETY CHECK PERFORMED. PERSONAL BELONGINGS AND REMOTE ON BEDSIDE TABLE. VSS AND WDL ACCORDING TO MONITOR.
--- NOTE | 2023-09-12 21:34 | NUR ---
PROVIDED PATIENT WITH COFFEE, 2200 ABX GTT ADMINISTERED, PATIENT ENDORSES COMFORT, SAFETY CHECK PERFORMED, DENIES NEEDS AT THIS TIME.
--- NOTE | 2023-09-12 22:44 | NUR ---
LH 20GIV WAS NOTED TO BE INFILTRATED. THIS RN REMOVED THE IV, ASSESSED THE SITE AND PROVIDED A COLD COMPRESS TO THE SITE. PATIENT MCCARTHY ENDORSES MINIMAL DISCOMFORT.
[2023-09-13] VITALS (7 sets, daily range): BP systolic 111–171; BP diastolic 53–91
--- NOTE | 2023-09-13 05:17 | NUR ---
PT IS CONTINUE ON 2.5 L NASAL CANNULA, OFF FROM BIPAP, NO WOB OR RESP. DISTRESS NOTED.
[2023-09-13 05:32] LABS: BASOPHILS 0.1 % (0-2); EOSINOPHILS 0.1 % (0-6); HEMATOCRIT 32.4 % (35.0-50.0); HEMOGLOBIN 10.6 g/dL (12.0-18.0); MCH 28.6 (27-36); MCHC 32.7 g/dl (30-36); MCV 87.4 fl (81-99); MONOCYTES 3.7 % (0-12); NEUTROPHILS 93.1 % (39-80); PLATELET COUNT 154 K/uL (140-440); RDW 17.2 (10.5-15.0)
[2023-09-13 05:43] LABS: ANION GAP 10.4 (7-21); BUN/CREATININE RATIO 22.5 (6.0-28.6); CALCIUM 8.5 mg/dL (8.5-10.1); CREATININE, SERUM 1.2 mg/dL (0.70-1.30); POTASSIUM 4.4 mmol/L (3.5-5.1)
--- NOTE | 2023-09-13 05:43 | NUR ---
PATIENT FABIO HAD A PLEASANT EVENING. HE CONTINUES TO ENDORSE COMFORT AND IS ABLE TO EXPRESS HIS NEEDS AND WANTS. PATIENT FABIO STATES THAT HE IS HAPPY WITH HIS CARE. NEURO- ALERT AND ORIENTED X 4, NO PAIN, ABLE TO MOVE ALL EXTREMITIES, 5/5 STRENGHT, PERRL, CARDIAC- SR- SB WITH OCCASSIONAL PVC'S. AFEBRILE, NO EDEMA NOTED RESP- CLEAR/ DIM, 3LNC (BASELINE), PRODUCTIVE COUGH, O2 SAT >92 GI/- ENDORSES HUNGER AND IS EAGER FOR BREAKFAST, NORMOACTIVE BOWEL TONES NOTED, ABLE TO VOID IN URINAL INT- SEE PREVIOUS ASSESSMENT LDA- RIGHT AC
--- NOTE | 2023-09-13 07:10 | NUR ---
REPORT RECEIVED FROM EMMY MCKENZIE. PT AWAKE IN BED ON 3L/NC WITH SPO2 95%, REQUESTING COFFEE.
--- NOTE | 2023-09-13 07:20 | NUR ---
DR MATTA IN TO SEE PT, PLAN DISCUSSED TO TRANSFER PT TO MED SURG FLOOR, PT AGREEABLE AND IN [facility] THIS AM.
--- NOTE | 2023-09-13 07:52 | NUR ---
RT IN WITH PT
[2023-09-13] MEDS ORDERED: FLONASE ALLERG9.9 ML NAS (11:54)
--- NOTE | 2023-09-13 12:20 | NUR ---
PT AMBULATES TO BATHROOM W/ FWW FOR BM, PT STATES IT HAS BEEN 3 OR 4 DAYS SINCE HIS LAST BM, HE NORMALLY HAS ONE EVERY OTHER DAY OR SO. THIS RN WILL ASK THE PROVIDER FOR STOOL SOFTENER FOR PT, PT AGREEABLE TO THIS. PT DYSPNEAIC WITH ACTIVITY BUT RECOVERS QUICKLY. PT AMBULATES W/ FWW BACK TO BED. CALL LIGHT IN REACH, DENIES FURTHER NEEDS AT THIS TIME
[2023-09-13] MEDS ORDERED: REFRESH TEARS15 ML OU (13:42)
[2023-09-13] MEDS ORDERED: K-TAB10 MEQ PO (13:43)
--- NOTE | 2023-09-13 14:01 | NUR ---
IN PT ROOM FOR MEDICATIONS, PT RESTING IN BED WITH AT BEDSIDE, THIS RN GAVE EDUCATION REGARDING BOWEL CARE, PT WAS ABLE TO HAVE A BM TODAY BUT STATES IT WAS HARD/DIFFICULT TO PASS. PT STATES HE WOULD LIKE TO HAVE SUCTION AT HOME IT SEEMS TO HELP WITH SECRETIONS, PT STATES HE HAS A LOT OF JUNK TO COUGH UP IN THE MORNINGS AND DOES NOT HAVE ENOUGH AIR TO COUGH IT UP, THE SUCTION HELPS A LOT. THIS RN SUGGESTED BRINGING THIS REQUEST UP WITH PROVIDER AND CASE MANAGEMENT TO SEE IF PT QUALIFIES FOR SOMETHING LIKE THIS FROM DME PROVIDER. CALL LIGHT IN REACH DENIES FURTHER NEEDS AT THIS TIME
--- NOTE | 2023-09-13 14:08 | NUR ---
SPOKE WITH PATIENT AND SPOUSE, STATE THEY ARE OK WITH HOME HEALTH PT, BUT ARE UNABLE TO DRIVE FOR CARDIOPULMONARY REHAB. PREFER TO USE [facility]. INFORMED STAFF WILL SEND REFERRAL AND [facility] WILL REACH OUT TO THEM. VERBALIZE UNDERSTANDING. ALSO PROVIDED IM LETTER.
--- NOTE | 2023-09-13 14:36 | NUR ---
UR NOTE MCG CHRONIC OBSTRUCTIVE PULMONARY DISEASE (ISC) INPATIENT 09/12/23 VARIANCE GL DAY 2 09/13/23 MET GL DAY 2
[2023-09-13] MEDS ORDERED: SPIRIVA18 MCG INH (15:04)
--- NOTE | 2023-09-13 15:05 | NUR ---
MED REC COMPLETE
--- NOTE | 2023-09-13 17:46 | NUR ---
PT HAS BEEN A&OX4 FOR THIS RN SHIFT, SHERIFF, AFEBRILE, DENIES PAIN, S1S2 NO MURMURS APRRECIATED, PULSES PALPABLE BLE/BUE, NO EDEMA, LS CLEAR & DIM, 3L NC BASELINE HOME O2 IN USE, PT DOES BECOME TACHYNEIC/DYSPNEIC WITH ACTIVITY, DESATS TO MID 80'S, RECOVERS IN A FEW MINUTES BACK TO THE LOW 90'S. PT HAD BM TODAY, ATE 100% OF MEALS, WAS COVERED PER MAR W/ SS INSULIN, VOIDS IN URINAL OR TOILET, QS CLEAR YELLOW URINE, SKIN IS FRAGILE BUT INTACT W/ SCATTERED BRUISING. 18G PIV IN R AC FLUSHES WELL. PT AMBULATED W/ FWW BUT HAS STEADY GAIT W/O IT WELL. CALL LIGHT APPROPRIATE.
--- NOTE | 2023-09-13 19:40 | NUR ---
SHIFT REPORT RECEIVED FROM JONAH MAYO. R.T. CURRENTLY IN ROOM WITH PT FOR SCHEDULED TREATEMENTS.
--- NOTE | 2023-09-13 20:40 | NUR ---
ASSESSMENT COMPLETED, MEDS GIVEN PER EMAR. PT REMAINS ON 2.5L O2 VIA NC, DENIES SOB WHILE AT REST. IV INTACT AND PATENT. POC DISCUSSED AND QUESTIONS ANSWERED. PT DENIES FURTHER NEEDS, BELONGINGS AND CALL LIGHT WITHIN REACH.
--- NOTE | 2023-09-13 21:28 | NUR ---
PT UP TO BR TO VOID, RETURNED TO BED. DESAT WITH ACTIVITY TO 80% BUT QUICKLY RETURNS TO >90% AT REST. NO COUGHING WITH ACTIVITY, WHICH PT REPORTS IMPROVEMENT. MEDS GIVEN PER EMAR. PT DENIES FURTHER REQUESTS. CALL LIGHT AND BELONGINGS WITHIN REACH.
--- NOTE | 2023-09-13 22:41 | NUR ---
IN TO SALINE LOCK IV AFTER ANX INFUSIONS. PT RESTING WITH EYES CLOSED, AWOKE EASILY WHEN RN ENTERED ROOM. PT DENIES NEEDS AT THIS TIME. IV SITE INTACT AND PATENT. BELONINGS AND CALL LIGHT WITHIN REACH. 2.5L O2 VIA NC REMAINS IN PLACE.
--- NOTE | 2023-09-14 00:04 | NUR ---
PT SLEEPING ON LEFT SIDE. 2.5L O2 VIA NC REMAINS IN PLACE. HR:57, SPO2:96% PER MONITOR. PT DOES NOT APPEAR TO BE IN ANY DISTRESS, WILL ALLOW FOR REST AT THIS TIME.
[2023-09-14 00:40] VITALS: BP 136/81
--- NOTE | 2023-09-14 00:45 | NUR ---
PT UP TO BR TO VOID, THEN RETURNED TO BED. WITH ACTIVITY, SPO2 DESATS TO 80%, QUICKLY RETURNS TO >90% WHEN AT REST. ASSESSMENT UNCHANGED. VSS. PT DENIES FURTHER NEEDS, CALL LIGHT AND BELONGINGS WITHIN REACH.
--- NOTE | 2023-09-14 01:55 | NUR ---
REPORT GIVEN TO JONAH PHOENIX.
--- NOTE | 2023-09-14 02:49 | NUR ---
PT UP TO BR TO VOID AND THEN BACK TO BED. SPO2 DESATS TO 82% WITH ACTIVITY, BUT QUICKLY RETURNS TO >90% AT REST. PT DENIES NEEDS, CALL LIGHT AND BELONGINGS WITHIN REACH.
[2023-09-14 05:30] LABS: BASOPHILS 0.5 % (0-2); EOSINOPHILS 0.7 % (0-6); HEMOGLOBIN 11.5 g/dL (12.0-18.0); LYMPHOCYTES 2.4 % (24-44); MCH 28.8 (27-36); MCHC 32.7 g/dl (30-36); MCV 87.9 fl (81-99); MONOCYTES 3.9 % (0-12); NEUTROPHILS 92.5 % (39-80); PLATELET COUNT 163 K/uL (140-440); RBC 3.99 M/ul (4.3-5.7); RDW 17.3 (10.5-15.0)
[2023-09-14 05:44] LABS: ANION GAP 11.4 (7-21); CALCIUM 8.7 mg/dL (8.5-10.1); CREATININE, SERUM 1.32 mg/dL (0.70-1.30); POTASSIUM 4.4 mmol/L (3.5-5.1)
--- NOTE | 2023-09-14 06:30 | NUR ---
PATIENT UP IN THE ROOM INDEPENDENTLY. TOLERATING 3L NC. MILD SOB WITH ACTIVITY. VS STABLE. PATIENT UP IN RECLINER. FRESH COFFEE PROVIDED. CALL LIGHT IN REACH.
[2023-09-14 06:44] VITALS: BP 113/66
[2023-09-14 08:00] VITALS: BP 116/53
--- NOTE | 2023-09-14 11:46 | NUR ---
PATIENT MENTIONED WANT FOR SUCTION MACHINE AT HOME TO HELP KEEP AIRWAY CLEARED. STATES [facility] WITH [facility] AND [facility] INFORMED HIM THEY WOULD COVER IT. WILL DISCUSS WITH DR. RICE
--- NOTE | 2023-09-14 13:40 | NUR ---
DISCUSSED SUCTION MACHINE FOR HOME. STATES THEY PREFER TO GET FROM [facility] SINCE THEY GET OXYGEN FROM [facility] ALREADY. DR. RICE NOTIFIED. FACE TO FACE COMPLETED FOR HOME HEALTH AND PRESCRIPTION FOR SUCTION RECIEVED.
--- NOTE | 2023-09-14 15:06 | NUR ---
Referral sent to [facility] and orders sent for Suctioning for home to [facility].
--- NOTE | 2023-09-14 16:25 | NUR ---
PT TRANSFERRED TO [facility] RM 122 VIA BED WITH ALL BELONGINGS, REPORT GIVEN TO CHANA MCKENZIE/DEVORA MCKENZIE
[2023-09-14 16:43] VITALS: BP 139/65
--- NOTE | 2023-09-14 16:54 | NUR ---
PATIENT ARRIVED TO THE MED SURG FLOOR. PATIENT FULL ASSESSMENT COMPLETE AND DOCUMENTED IN THE CHART. PATIENT LUNG SOUNDS ARE CLEAR AND DIMINISHED IN THE LOWER LUNG LOBES BILATERALLY. PATIENT ON 3 L O2 NC. VIZCAINO IS AT THE PATIENTS BEDSIDE. IV DRESSING CHANGED AND AREA AROUND THE SITE CLEANED. IV FLUSHED WITH 10 ML NORMAL SALINE. NORMAL S1 AND S2 HEART SOUNDS AUSCULTATED. CAPILLARY REFILL LESS THAN 3 SECONDS IN THE UPPER EXTREMITITES. BOWEL SOUNDS ARE ACTIVE IN ALL FOUR QUADRANTS. PATIENT STATED 0/10 PAIN AT THIS TIME AND NOW NUMBNESS AND TINGLING. PATIENT SIGNS TAKEN AND DOCUMENTED IN THE CHART. BIPAP IS IN THE PATIENTS ROOM. PATIENT STATED NO FURTHER NEEDS AT THIS TIME. CALL LIGHT AND PERSONAL BELONGINGS ARE WITHIN REACH.
--- NOTE | 2023-09-14 19:15 | NUR ---
Patient resting on side with eyes closed. appears comfortable and no resp distress noted, RR=20. Report given by day shift RN.
--- NOTE | 2023-09-14 20:10 | NUR ---
Patient states he is feeling better. VSS, lungs clear but decreased, oxygen at 3liters/nc, continous pulse ox on and sats staying >90%. Denies pain or discomfort, blood sugar 335 and 9u SS insulin given. Patient without complaint. call light in reach, light is out.
[2023-09-14 21:24] VITALS: BP 142/66
--- NOTE | 2023-09-14 22:02 | NUR ---
Patient resting with eyes closed, appears comfortable, no distress, RR -20 even and unlabored. HOB up. O2 sats remain >90% on pulse ox. lights are out and call light is within reach.
--- NOTE | 2023-09-15 00:35 | NUR ---
Patient resting with eyes closed. Awake about 45 min. ago and doing acapela and had no complaints at that time, no noted resp distress and pulse remains >92%.
--- NOTE | 2023-09-15 02:13 | NUR ---
Patient continues to rest comfortable on side with eyes closed. appears comfortable, no noted distress, RR-20 with continous pulse ox >92%. call light within reach.
--- NOTE | 2023-09-15 04:22 | NUR ---
Patient continues to rest comfortably with no noted distress, RR-18 and oxygen sats remain >92%. patient continues wearing O2 @ 3L/NC. call light within reach.
[2023-09-15 04:36] VITALS: BP 110/68
--- NOTE | 2023-09-15 05:09 | NUR ---
Patient awake stated he slept well, sitting up and having a cup of coffee and watching TV. Using suction prn, no noted resp distress,
[2023-09-15 06:01] LABS: BASOPHILS 0.2 % (0-2); EOSINOPHILS 0.1 % (0-6); HEMOGLOBIN 11.8 g/dL (12.0-18.0); LYMPHOCYTES 1.6 % (24-44); MCH 28.6 (27-36); MCHC 32.7 g/dl (30-36); MCV 87.3 fl (81-99); MONOCYTES 4.6 % (0-12); NEUTROPHILS 93.5 % (39-80); PLATELET COUNT 183 K/uL (140-440); RBC 4.13 M/ul (4.3-5.7)
[2023-09-15 06:04] LABS: BUN/CREATININE RATIO 22.72 (6.0-28.6); CALCIUM 8.7 mg/dL (8.5-10.1); CREATININE, SERUM 1.54 mg/dL (0.70-1.30)
--- NOTE | 2023-09-15 07:15 | NUR ---
REPORT RECEIVED FROM FOOT ROENTGENOLOGIST RN. PATIENT SITTING UPRIGHT IN THE RECLINER. PATIENT ON 3 L NASAL CANNULA. PATIENT STATED NO FURTHER NEEDS AT THIS TIME. CALL LIGHT AND PERSONAL BELONGINGS ARE WITHIN REACH.
--- NOTE | 2023-09-15 08:30 | NUR ---
PATIENT FULL ASSESSMENT COMPLETE AND DOCUMENTED IN THE CHART. PATIENT 0800 AND 0900 MEDICATIONS ADMINISTERED PER THE EMAR. PATIENT STATING NO PAIN AND NO NUMBNESS AND TINGLING. PATIENT SITTING UPRIGHT IN THE RECLINER. BREAKFAST TRAY COMPLETE. PATIENT BILATERAL UPPER LUNG LOBES WITH EXPIRATORY WHEEZING. BILATERAL LOWER LUNG LOBES ARE CLEAR AND DIMINISHED. PATIENT ON 3L NC. PATIENT WITH YAUNKER SUCTION NEEDED. NORMAL S1 AND S2 AUSCULTATED. RADIAL PULSES ARE STRONG. NORMAL STRENGTH NOTED IN THE UPPER EXTREMITIES. BOWEL SOUNDS ARE ACTIVE IN ALL FOUR QUADRANTS. PATIENT STATED NO FURTHER NEEDS AT THIS TIME. CALL LIGHT AND PERSONAL BELONGINGS ARE WITHIN REACH.
[2023-09-15 09:53] VITALS: BP 111/57
[2023-09-15] MEDS ORDERED: CEFPODOXIME PR200 MG PO (11:18)
[2023-09-15] MEDS ORDERED: PREDNISONE20 MG PO (11:24)
--- NOTE | 2023-09-15 12:48 | NUR ---
1200 INSULIN ADMINISTERED PER THE EMAR. PATIENT DISCHARGE PACKET AND EDUCATION ON PNEUMONIA, COPD EXACERBATION, AND SEPSIS REVIEWED WITH THE PATIENT AND HIS . PATIENT AND FAMILY QUESTIONS ANSWERED. PATIENT THEN SIGNED THE DISCHARGE PAPER. PATIENT LEFT THE HOSPITAL VIA WHEELCHAIR AND PLAN TO GO HOME.
== END 2023-09-15 12:39 | disposition home health service (06) | DRG 871 ==
LOC: ED 20:09 → CCU 22:13 → MS 22:13
PROVIDERS: Internal Medicine; ADMIT Family Medicine; ATTEND Family Medicine
PROC: 3E03329 Introduction of Other Anti-infective into Peripheral Vein, Percutaneous Approach (ICD-10-PCS; principal; 2023-09-11)
PROC: 5A09357 Assistance with Respiratory Ventilation, Less than 24 Consecutive Hours, Continuous Positive Airway Pressure (ICD-10-PCS; 2023-09-11)
DX: A41.9 Sepsis, unspecified organism (principal); J18.9 Pneumonia, unspecified organism; J96.21 Acute and chronic respiratory failure with hypoxia; U07.1 COVID-19; J44.1 Chronic obstructive pulmonary disease with (acute) exacerbation; J44.0 Chronic obstructive pulmonary disease with (acute) lower respiratory infection; I12.9 Hypertensive chronic kidney disease with stage 1 through stage 4 chronic kidney disease, or unspecified chronic kidney disease; E11.22 Type 2 diabetes mellitus with diabetic chronic kidney disease; E78.5 Hyperlipidemia, unspecified; N18.31 Chronic kidney disease, stage 3a; E79.0 Hyperuricemia without signs of inflammatory arthritis and tophaceous disease; F41.9 Anxiety disorder, unspecified; F32.A Depression, unspecified; J43.9 Emphysema, unspecified; R60.0 Localized edema; N40.0 Benign prostatic hyperplasia without lower urinary tract symptoms; Z99.81 Dependence on supplemental oxygen; Z88.0 Allergy status to penicillin; Z88.8 Allergy status to other drugs, medicaments and biological substances; Z87.891 Personal history of nicotine dependence; Z79.52 Long term (current) use of systemic steroids; Z79.82 Long term (current) use of aspirin; Z79.84 Long term (current) use of oral hypoglycemic drugs; Z79.51 Long term (current) use of inhaled steroids
CPT/HCPCS: 36415; 71045; 80048; 80053; 82803; 83605; 83880; 84484; 85025; 85060; 87040; 87502; 93005; 93010; 94640; 94660; 94668; 94760; 94762; 97161; A9270; C9113; C9803; J0456; J0696; J1650; J1815; J2920; J2930; J7060; J7121; U0002

== ENCOUNTER 2024-12-09 13:52 | Emergency (ER) | payer OTHER, MEDICARE ==
[~2024-12-09] VITALS: Ht 182.9 cm; Wt 85.6 kg
[~2024-12-09 13:52] MED LIST changes: +K-TAB10 MEQ PO; +REFRESH TEARS15 ML OU
[2024-12-09] MEDS ORDERED: ALBUTEROL/IPRATROPIUM 3 ML NEB INH PRN (14:15)
[2024-12-09 14:17] LABS: BASOPHILS 0.6 % (0-2); EOSINOPHILS 0.5 % (0-6); HEMATOCRIT 33.7 % (35.0-50.0); HEMOGLOBIN 11.1 g/dL (12.0-18.0); LYMPHOCYTES 3.5 % (24-44); MCH 30.4 (27-36); MCHC 32.9 g/dl (30-36); MCV 92.4 fl (81-99); MONOCYTES 3.3 % (0-12); NEUTROPHILS 92.1 % (39-80); PLATELET COUNT 166 K/uL (140-440); RBC 3.64 M/ul (4.3-5.7); RDW 15.7 (10.5-15.0)
[2024-12-09] MEDS ORDERED: TORSEMIDE5 MG (14:19)
[2024-12-09 14:43] LABS: ALBUMIN 3.4 g/dL (3.4-5.0); ALBUMIN/GLOBULIN RATIO 1.36 (1.1-2.4); ANION GAP 15.6 (7-21); BILIRUBIN, TOTAL 0.6 mg/dL (0.2-1.0); BUN/CREATININE RATIO 19.41 (6.0-28.6); CALCIUM 9.2 mg/dL (8.5-10.1); CREATININE, SERUM 2.06 mg/dL (0.70-1.30); MAGNESIUM 1.7 mg/dL (1.8-2.4); POTASSIUM 4.6 mmol/L (3.5-5.1); PROTEIN, TOTAL 5.9 g/dL (6.4-8.2)
[2024-12-09] MEDS ORDERED: SODIUM CHLORIDE 0.9% 1,000 ML IV PRN (15:30)
[2024-12-09] MEDS ORDERED: methylPREDNISolone SOD SUCC 125 MG/2 ML VIAL IV ONE (15:30)
[2024-12-09] MEDS ORDERED: PREDNISONE20 MG PO (17:33)
[2024-12-09 17:42] VITALS: BP 132/70
--- NOTE | 2024-12-09 22:12 | EKG ---
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 rate has decreased BY 47 BPM Confirmed by Chica Rice MD () on 12/09/2024 10:12:01 PM Electronically Signed By: CHICA RICE MD 12/09/24 221 PATIENT NAME: JOAN MCCARTHY Electrocardiogram DATE OF : 48 PHYSICIAN: CHICA RICE MD REPORT #: [id number] REPORT IS CONFIDENTIAL AND NOT TO BE RELEASED WITHOUT AUTHORIZATION
== END 2024-12-09 17:43 | disposition home or self-care (01) ==
LOC: ED 13:52
PROVIDERS: Emergency Medicine
DX: J44.1 Chronic obstructive pulmonary disease with (acute) exacerbation (principal); E11.9 Type 2 diabetes mellitus without complications; Z79.82 Long term (current) use of aspirin; Z79.84 Long term (current) use of oral hypoglycemic drugs; Z79.51 Long term (current) use of inhaled steroids; Z79.899 Other long term (current) drug therapy; Z79.52 Long term (current) use of systemic steroids; Z88.0 Allergy status to penicillin; Z88.8 Allergy status to other drugs, medicaments and biological substances; Z87.891 Personal history of nicotine dependence
CPT/HCPCS: 36415; 71045; 80053; 83735; 83880; 84484; 85025; 93005; 93010; 94640; 96374; 99285-25; J2919; J7030

== ENCOUNTER 2025-05-13 10:45 | Inpatient (IN) | payer MEDICARE, OTHER ==
[~2025-05-13] VITALS: Ht 182.9 cm; Wt 82.5 kg
[~2025-05-13 10:45] MED LIST changes: +GLIPIZIDE XL10 MG PO; -GLIPIZIDE XL2.5 MG PO; +TORSEMIDE5 MG PO
[2025-05-13] MEDS ORDERED: ALBUTEROL/IPRATROPIUM 3 ML NEB INH PRN (11:15)
[2025-05-13 11:19] LABS: BASOPHILS 0.3 % (0.2-1.2); EOSINOPHILS 1.1 % (0.8-7.0); LYMPHOCYTES 4.0 % (21.8-53.1); MCH 29.1 PG (25.7-32.2); MCHC 31.5 g/dL (32.3-36.5); MCV 92.5 fL (79.0-92.2); MONOCYTES 6.1 % (5.3-12.2); NEUTROPHILS 87.9 % (34.0-67.9); RBC 3.85 M/uL (4.63-6.08)
[2025-05-13 11:39] LABS: ALT (SGPT) 27.0 U/L (14-59); AST (SGOT) 15.0 U/L (15-37); GLOMERULAR FILTRATION RATE,EST 34.0 mL/min (>60); PROTEIN, TOTAL 6.2 g/dL (6.4-8.2); UREA NITROGEN 28.0 mg/dL (7-18)
[2025-05-13] MEDS ORDERED: levoFLOXacin 750 MG PIGGYBACK IV ONE (12:15)
[2025-05-13] MEDS ORDERED: SODIUM CHLORIDE 0.9% 1,000 ML IV SCH ×2 (13:00→22:45)
[2025-05-13] MEDS ORDERED: ACETAMINOPHEN 325 MG TAB PO PRN (13:00)
--- NOTE | 2025-05-13 14:00 | NUR ---
PT ARRIVES TO MEDSURG UNIT, PIVOTS TO MEDSURG BED. PT ABLE TO ANSWER ADMISSION QUESTIONS INDEPENDENTLY. AT THE BEDSIDE. PT GIVEN SANDWICH BOX, EATS INDEPENDENTLY W/O DIFFICULTY. PT STATES NO FURTHER NEEDS AT THIS TIME, CALL LIGHT WITHIN REACH.
[2025-05-13 14:02] VITALS: BP 114/58
[2025-05-13] MEDS ORDERED: PREDNISONE10 MG PO (14:17)
[2025-05-13] MEDS ORDERED: AZITHROMYCIN250 MG PO (14:18)
--- NOTE | 2025-05-13 15:30 | NUR ---
IN TO SEE PATIENT. HE IS SLEEPING WITH RESP EVEN AND UNLABORED. WILL RETURN TO SPEAK TO PATIENT AT A LATER TIME.
[2025-05-13] MEDS ORDERED: ALBUTEROL/IPRATROPIUM 3 ML NEB INH SCH (16:00)
[2025-05-13] MEDS ORDERED: GLUCAGON,HUMAN RECOMBINANT 1 MG/ML VIAL SUB-Q PRN (17:00)
[2025-05-13] MEDS ORDERED: IBLOOD GLUCOSE TEST STRIP 1 EA TEST VI SCH (17:00)
[2025-05-13] MEDS ORDERED: DEXTROSE 5% 1,000 ML IV PRN (17:00)
[2025-05-13] MEDS ORDERED: DEXTROSE 50% 50 ML SYR IV PRN ×2 (17:00)
[2025-05-13] MEDS ORDERED: IBLOOD GLUCOSE TEST STRIP 1 EA TEST XX PRN (17:00)
[2025-05-13] MEDS ORDERED: INSULIN LISPRO 100 UNIT/ML ML SUB-Q SCH (17:00)
--- NOTE | 2025-05-13 17:12 | EKG ---
[facility] [address] 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
[2025-05-13] MEDS ORDERED: AZITHROMYCIN 500 MG in DEXTROSE 5% 250 ML IV SCH (17:22)
[2025-05-13] MEDS ORDERED: BENZONATATE 100 MG CAP PO PRN (17:30)
[2025-05-13] MEDS ORDERED: guaiFENesin 600 MG TABCR PO PRN (17:30)
--- NOTE | 2025-05-13 17:34 | NUR ---
medications reconciled with patient's
[2025-05-13 17:36] VITALS: BP 103/59
[2025-05-13] MEDS ORDERED: MAGNESIUM SULFATE 2 GM/50 ML BAG IV ONE (17:45)
--- NOTE | 2025-05-13 18:02 | NUR ---
PT UP TO RESTROOM WITH CANE AND SBA. CALL LIGHT WITHIN REACH.
[2025-05-13 18:05] VITALS: BP 103/59
--- NOTE | 2025-05-13 18:40 | NUR ---
PT UP TO RESTROOM WITH SBA. PT AT BEDSIDE ASSISTING PT WITH IV POLE. PT BACK TO BED, STATES NO FURTHER NEEDS AT THIS TIME, CALL LIGHT WITHIN REACH.
[2025-05-13] MEDS ORDERED: SODIUM CHLORIDE 0.9% 1,000 ML IV PRN (18:45)
--- NOTE | 2025-05-13 19:39 | NUR ---
REPORT RECEIVED FROM JONAH COPPOLA. pt RESTING IN BED ON LEFT SIDE, EYES CLOSED. BREATHING EQUAL AND UNLABORED. 2L OXYGEN BY NC IN PLACE. IVF INFUSING WNL. NO DISTRESS NOTED. UPDATED, pt REQUESTS REVIEW OF CODE STATUS.
[2025-05-13] MEDS ORDERED: BUDESONIDE 0.5 MG/2 ML VIAL INH SCH (20:00)
[2025-05-13] MEDS ORDERED: ARFORMOTEROL TARTRATE 15 MCG/2 ML VIAL INH SCH (20:00)
[2025-05-13 20:09] VITALS: BP 104/50
--- NOTE | 2025-05-13 20:12 | NUR ---
LEGAL EXAMINER OBTAINED VITALS AND I&O. PT STATES NO NEEDS AT THIS TIME. CALL LIGHT WITHIN REACH.
--- NOTE | 2025-05-13 20:25 | NUR ---
FIRST BAG IVF BOLUS COMPLETE. REMAINING IVF BOLUS (1475 MLS) PER ORDERS INFUISNG WNL. IV SITE FLUSHED, BRISK BLOOD RETURN. pt RESTING IN BED WITH CALL LIGHT AND PERSONAL SUPPLIES WITHIN REACH. DENIES TOILETING NEEDS AT THIS TIME. VERBALIZES UNDERSTANDING TO USE CALL LIGHT FOR ANY NEEDS, BEFORE OUT OF BED.
[2025-05-13] MEDS ORDERED: TAMSULOSIN HCL 0.4 MG CAP PO SCH (21:00)
[2025-05-13] MEDS ORDERED: CITALOPRAM HYDROBROMIDE 20 MG TAB PO SCH (21:00)
--- NOTE | 2025-05-13 21:23 | NUR ---
GLYNN CALLED AND ASKED FOR pt UPDATE, UPDATE PROVIDED. PRIMARY RN MADE AWARE.
--- NOTE | 2025-05-13 21:59 | NUR ---
IN ROOM FOR MEDICATION ADMINSITRATION. pt BACK TO BED AFTER STANDING AT SIDE OF BED, COMPLAINS OF SOB AFTER GETTING UP TO SIDE OF BED. SPOT CHECKED SPO2, 97% WITH 2L OXYGEN BY NC IN PLACE. ASSESSMENT COMPLETE. SCHEDULED MEDICATIONS ADMINISTERED. PRN MUCINEX ADMINISTERED. ICE WATER REFILLED. IVF BOLUS COMPLETE, IVF INFUSING WNL. TECHNICAL TRAINING MANAGER NOTIFIED AND IN ROOM TO DRAW REPEAT LACTIC. CALL LIGHT IN REACH.
[2025-05-13 22:00] VITALS: BP 104/50
--- NOTE | 2025-05-13 22:33 | NUR ---
PHONE CALL FROM LAB, CRITICAL VALUE FOR LACTIC ACID RECEIVED. PHONE CALL TO MD. THORPE TO PLACE ORDERS FOR REPEAT LABS, IVF BOLUS.
--- NOTE | 2025-05-13 22:53 | NUR ---
pt SLEEPING, AWAKENS TO VOICE. IVF BOLUS INFUSING WNL. pt DENIES TOILETING OR ADDITIONAL NEEDS. CALL LIGHT IN REACH.
[2025-05-14] VITALS (10 sets, daily range): BP systolic 100–138; BP diastolic 41–69
--- NOTE | 2025-05-14 00:05 | NUR ---
BED ALARM ANSWERED. PT NEEDED TO USE BATHROOM. LEAD PORTFOLIO MANAGER 1PA PT TO BSC. PT VOIDED AND ASSISTED BACK TO BED. LEAD PORTFOLIO MANAGER PLACED PUREWICK PER RN JOHNATHAN REQUEST. PT STATES NO FURTHER NEEDS AT THIS TIME. CALL LIGHT WITHIN REACH AND BED ALARM ON.
--- NOTE | 2025-05-14 00:10 | NUR ---
PT ASSISTED TO BSC. O2 INCREASED TO 4L NC FROM 2L DUE TO PT BEING SOB ON PREVIOUS TRANSFERS TO BSC. AFTER PT WAS ASSISTED BACK TO BED, O2 TURNED BACK DOWN TO 2L NC. PT TOLERATED IT WELL. PT HAD MINIMAL SOB WITH TRANSFER. WILL CONTINUE TO MONITOR.
--- NOTE | 2025-05-14 00:42 | NUR ---
CHECKED ON pt. RESTING IN BED ON LEFT SIDE. BREATHING UNLABORED. 2L OXYGEN BY NC IN PLACE. IVF BOLUS COMPLETE. IVF INFUSING WNL. CALL LIGHT IN REACH.
--- NOTE | 2025-05-14 02:10 | NUR ---
pt AWAKE AFTER PRESS OPERATOR HEAVY DUTY OUT OF ROOM. VSS. DENIES TOILETING NEEDS. WARM BLANKET PROVIDED. CALL LIGHT IN REACH.
--- NOTE | 2025-05-14 04:00 | NUR ---
CALL LIGHT ANSWERED. pt SITTING AT SIDE OF BED. ASSESSMENT COMPLETE. LUNG SOUNDS CLEAR THROUGHOUT ALL LOBES. OXYGEN TITRATED TO 4L FOR AMBULATION TO RESTROOM FOR VOID AND BM. JONAH CHILDERS IN ROOM.
--- NOTE | 2025-05-14 05:21 | NUR ---
IN ROOM FOR VS, VSS. SPO2 WNL WITH 2 LITERS OXYGEN BY NC IN PLACE. pt RESTING IN BED. COFFEE AND ICE WATER PROVIDED. NEW BAG IVF INFUSING WNL. CALL LIGHT IN REACH.
[2025-05-14 05:51] LABS: BASOPHILS 0.1 % (0.2-1.2); EOSINOPHILS 0 % (0.8-7.0); LYMPHOCYTES 1.5 % (21.8-53.1); MCH 30.1 PG (25.7-32.2); MCHC 32.6 g/dL (32.3-36.5); MCV 92.2 fL (79.0-92.2); MONOCYTES 3.3 % (5.3-12.2); NEUTROPHILS 94.5 % (34.0-67.9); RBC 3.09 M/uL (4.63-6.08)
[2025-05-14] MEDS ORDERED: levoFLOXacin 250 MG TAB PO SCH ×2 (06:00→09:00)
[2025-05-14 06:06] LABS: ALT (SGPT) 32.0 U/L (14-59); AST (SGOT) 10.0 U/L (15-37); GLOMERULAR FILTRATION RATE,EST 49.0 mL/min (>60); PHOSPHORUS, INORGANIC 2.6 mg/dL (2.5-4.9); PROTEIN, TOTAL 5.0 g/dL (6.4-8.2); UREA NITROGEN 26.0 mg/dL (7-18)
--- NOTE | 2025-05-14 07:27 | NUR ---
RECIEVED SHIFT REPORT. PT IS AWAKE IN BED, ON PERSONAL PHONE. CALL LIGHT IN REACH.
--- NOTE | 2025-05-14 07:35 | NUR ---
MORNING ASSESSMENT COMPLETE. PT IS AWAKE IN BED, PT HAS REMOVED JOYCELYN WRAP AND TOWEL PROTECTING IV THAT WAS PLACED BY SHERIFF'S DETECTIVE. THIS RN PLACED A TEDHOE OVER THE IV SITE. PT ORIENTED TO SELF. ALERT, NOT WILLING TO FOLLOW COMMANDS. DENIES NEEDS AT THIS TIME. CALL LIGHT IN REACH. BED ALARM FOR PT SAFETY.
--- NOTE | 2025-05-14 07:39 | NUR ---
UR CLINICAL REVIEW: 2MN JEANNE, MEETS INPATIENT FOR COPD EXACERBATION/PNEUMONIA IV FLUIDS, IV ANTIBIOTICS, LACTIC ACID 4.7, BLOOD CULTURES PENDING MEDICARE INPT 05/13/2025 @ 1304 ORDER MATCHES REG NO AUTH REQUIRED PER MEDICARE RULES TO DC TO HOME WHEN MEDICALLY READY.
[2025-05-14] MEDS ORDERED: ENOXAPARIN SODIUM 40 MG/0.4 ML SYR SUB-Q SCH (09:00)
[2025-05-14] MEDS ORDERED: PANTOPRAZOLE SODIUM 40 MG TABEC PO SCH (09:00)
--- NOTE | 2025-05-14 09:13 | NUR ---
MORNING ASESSMENT COMPLETE. PT IS SITTING UP ON THE SIDE OF BED, EATING BREAKFAST. PT STAES HE FEELS MUCH BETTER TODAY. COURSE BILAT IN THE BASES OF THE LUNGS, DIM BILAT UPPER. DENIES PAIN OR NEEDS AT THIS TIME. CALL LIGHT IN REACH
--- NOTE | 2025-05-14 10:14 | NUR ---
INTO SEE PATIENT. PERSONAL HEALTH INFORMATION REVIEWED. PATIENT LIVES WITH . WHEELCHAIR RAMP INTO THE HOUSE. PATIENT DOES USE OXYGEN. 3 DURING THE DAY AND 2 LITERS AT NIGHT. BUT DOES DRIVE BUT HASNT BEEN RECENTLY DUE TO WEAKNESS. PT/OT/ RT ARE RECCOMENDING CARDIO PULM REHAB. PATIENT ABLE TO DRIVE HIM. SHE HAS BEEN CONCERNED ABOUT HIS INCREASING WEAKNESS. DENIES ANY DIFFCULTY DOING UTILITIES OR OBTAING FOOD.
--- NOTE | 2025-05-14 10:55 | NUR ---
PT NOT AVAILABLE FOR VISIT. PROVIDED PRAYER.
--- NOTE | 2025-05-14 11:06 | NUR ---
PAPERWORK SENT TO CARDIOPULMONARY REHAB
[2025-05-14] MEDS ORDERED: PHARMACY RENAL DOSE ADJUSTMENT 1 DOSE MISC PO SCH (12:00)
[2025-05-14] MEDS ORDERED: ALBUTEROL/IPRATROPIUM 3 ML NEB INH SCH (12:00)
--- NOTE | 2025-05-14 12:25 | NUR ---
PT AWAKE IN THE BED, VISITOR AT BEDSIDE. CALL LIGHT IN REACH. DENIES NEEDS
--- NOTE | 2025-05-14 14:45 | NUR ---
PT SITTING ON THE SIDE OF THE BED, AT BEDSIDE. DENIES NEEDS. CALL LIGHT IN REACH
--- NOTE | 2025-05-14 15:01 | NUR ---
THIS RN ASSISTED PT TO THE RESTROOM, AMBULATED W/O DIFFICULTY. PT HAD AN INCREASE OF SOB ONCE BACK TO THE BED, BUT RECOVERED QUICKLY. LUNGS SOUNDS ASSESSED. DIM BILAT UPPER AND LLL WITH EXHALE. COURSE WITH INHALE IN REMAINING. DENIES ANY DISCOMFORT. AT BEDSIDE. CALL LIGHT IN REACH.
--- NOTE | 2025-05-14 17:31 | NUR ---
pt sitting on the side of the bed eating dinner. denies needs. call light in reach.
--- NOTE | 2025-05-14 18:29 | NUR ---
PATIENT IS IN BED RESTING AT THIS TIME, SEWER SEPARATION DESIGNER CHARTED VITALS AND I&O'S, CALL LIGHT WITH IN REACH AND NOTHING ELSE NEEDED AT THIS TIME.
--- NOTE | 2025-05-14 19:25 | NUR ---
REPORT RECEIVED FROM DAYSHIFT RN. PATIENT RESTING IN BED, RESPIRATIONS EVEN AND UNLABORED. NO NEEDS IDENTIFIED, CALL LIGHT IN REACH.
--- NOTE | 2025-05-14 21:45 | NUR ---
PATIENT RESTING IN BED COMFORTABLY, SCHEDULED MEDICATIONS ADMINISTERED PER ORDER, RESPIRATIONS EVEN AND UNLABORED. NC IN PLACE. IVF CONTINUING TO INFUSE PER ORDER WITHOUT DIFFICULTY. HE DENIES FURTHER NEEDS, CALL LIGHT IN REACH
--- NOTE | 2025-05-14 23:17 | NUR ---
ROUNDED ON PATIENT, PATIENT RESTING WITH EYES CLOSED, RESPIRATIONS EVEN AND UNLABORED. NO FURTHER NEEDS, CALL LIGHT INREACH
--- NOTE | 2025-05-14 23:18 | NUR ---
RESPONDED TO ALARMING IV. REPLACED NS BAG. PT ALERT, THOUGH EASILY BACK TO SLEEP, NO NEEDS PRESENTLY.CALL LIGHT IN REACH
[2025-05-14] MEDS ORDERED: ALBUTEROL SULFATE 0.083% 3 ML VIAL INH PRN (23:45)
[2025-05-15] VITALS (8 sets, daily range): BP systolic 115–157; BP diastolic 57–84
--- NOTE | 2025-05-15 02:00 | NUR ---
ROUNDED ON PATIENT, PATIENT RESTING WITH EYES CLOSED, RESPIRATIONS EVEN AND UNLABORED. IVF CONTINUING PER ORDER, NO NEEDS IDENTIFIED, CALL LIGHT IN REACH
--- NOTE | 2025-05-15 02:41 | NUR ---
CALL LIGHT ANSWERED, PATIENT AMBULATED WELL TO RESTROOM, SOB WITH AMULATION. 3L NC WITH AMBULATION. BACK TO BED WITHOUT DIFFICULTY, PREFERING TO SIT UP, REQUESTING NEB TREATMENT. IVF CONTINUING TO INFUSE PER ORDER. NO FURTHER NEEDS, CALL LIGHT IN REACH
--- NOTE | 2025-05-15 04:54 | NUR ---
ROUNDED ON PATIENT, PATIENT RESTING ON LEFT SIDE, RESPIRATIONS EVEN AND UNLABORED. NO NEEDS IDENTIFIED, CALL LIGHT IN REACH
[2025-05-15 05:28] LABS: BASOPHILS 0.1 % (0.2-1.2); EOSINOPHILS 0 % (0.8-7.0); LYMPHOCYTES 1.3 % (21.8-53.1); MCH 29.2 PG (25.7-32.2); MCHC 31.8 g/dL (32.3-36.5); MCV 91.8 fL (79.0-92.2); MONOCYTES 3.2 % (5.3-12.2); NEUTROPHILS 94.4 % (34.0-67.9); RBC 3.05 M/uL (4.63-6.08)
[2025-05-15 05:41] LABS: ALT (SGPT) 53.0 U/L (14-59); AST (SGOT) 27.0 U/L (15-37); GLOMERULAR FILTRATION RATE,EST 48.0 mL/min (>60); PROTEIN, TOTAL 5.1 g/dL (6.4-8.2); UREA NITROGEN 28.0 mg/dL (7-18)
--- NOTE | 2025-05-15 05:49 | NUR ---
INFECTION CONTROL SPECIALIST OBTAINED VITALS AND I&O. PT GIVNE CUP OF COFFEE AND NO FURTHER NEEDS AT THIS TIME. CALL LIGHT WITHIN REACH.
--- NOTE | 2025-05-15 05:53 | NUR ---
VS OBTAINED AND RECORDED BY ROUGH RICE GRADER. INTAKE AND OUTPUT DOCUMENTED. PATIENT AMBULATED TO AND FROM BATHROOM WELL. A&OX4, RESPIRATIONS EVEN AND UNLABORED, SHORT OF BREATH WHILE AMBULATING. LUNG SOUNDS DIMINISHED THROUGHOUT, UNCHANGED FROM PREVIOUS. NO FURTHER NEEDS, IVF INFUSING WITHOUT DIFFICULTY. CALL LIGHT IN REACH
--- NOTE | 2025-05-15 07:02 | NUR ---
RESPONDED TO BEEPING IV. REPLACED IV FLUIDS. PT RESTING IWTH EYES CLOSED. NO NEEDS FOR NOW, CALL WENDY WARREN
--- NOTE | 2025-05-15 07:20 | NUR ---
RECIEVED SHIFT REPORT. PT IS AWAKE IN BED, REQUESTING COFFEE AT THIS TIME. NO OTHER NEEDS.
--- NOTE | 2025-05-15 08:59 | NUR ---
MORNING ASSESSMENT COMPLETE. PT IS AWAKE SITTING ON THE SIDE OF THE BED, FINISHING BREAKFAST. PT APPEARS TO HAVE AN INCREASE OF SOB, WHILE TALKING. PT REQUESTING TO USE RESTROOM, TITRATED PT TO 4L NC. PT LOBES ARE DIM THROUGHOUT. AFTER RESTROOM, PT IS IN RECLINER, TITRATED BACK TO 2L. PT DENIES SOB AND STATES HE FEELS FINE. MOE BARAJAS IN ROOM.
--- NOTE | 2025-05-15 09:00 | NUR ---
SPOKE WITH PATIENT CARDIOPULMONARY REHAB REFFERAL SENT TO [facility]. PATIENT TO GO HOME WITH WHEN MEDICALLY CLEARED FOR DISCHARGE. NO FUTHER CM NEEDS.
--- NOTE | 2025-05-15 12:00 | NUR ---
MANUFACTURING COORDINATOR CHARTED I&O'S, RN CJ GOT PATIENT VITALS. WHEN I CHARTED I&O'S I EMPTIED PATIENTS SPUTUM SUCTION CONTAINER, WHICH HAD 250ML'S IN IT. IS IN ROOM WITH PATIENT, CALL LIGHT WITH IN REACH AND NOTHING ELSE NEEDED AT THIS TIME.
--- NOTE | 2025-05-15 12:32 | NUR ---
PT EATING LUNCH IN RECLINER. PT IS SOB WITH EXCERTION AND WHEN TALKING. PT ENCOURAGED TO TAKE SLOW DEEP BREATHS. PT IS COOPERATIVE. DENIES NEEDS. CALL LIGHT IN REACH.
[2025-05-15] MEDS ORDERED: INSULIN GLARGINE-YFGN 100 UNIT/ML ML SUB-Q SCH (12:53)
--- NOTE | 2025-05-15 16:28 | NUR ---
PT IN AWAKE IN BED, VISITORS AT BEDSIDE. CALL LIGHT IN REACH. DENIES NEEDS.
[2025-05-15] MEDS ORDERED: ALBUTEROL SULFATE 0.083% 3 ML VIAL INH PRN (18:00)
--- NOTE | 2025-05-15 18:00 | NUR ---
PT WAS COMPLAINING OF AN INCREASE OF A SOB, ASKED TO USE HOME INHALER. DISCUSSED WITH MD AND RT ABOUT PRN NEB TX. WAS GIVEN VERBAL TO CHANGE PRN TO Q1H. PT NOTIFIED NOT TO USE HOME INHALER.
--- NOTE | 2025-05-15 18:10 | NUR ---
PATIENT IN BED AT THIS TIME. PATROL MOTHER CHARTED VITALS AND I&O'S. CALL LIGHT WITHIN REACH, NO FURTHER NEEDS AT THIS TIME.
--- NOTE | 2025-05-15 19:27 | NUR ---
REPORT RECEIVED FROM JONAH CRAWLEY. PATIENT RESTING IN BED, WATCHING TV. RESPIRATIONS EVEN AND UNLABORED. NC IN PLACE, HOLDING YAUNKER FOR SECRETIONS WHICH HE STATES HE COUGHS UP. HE DENIES ANY NEEDS, CALL LIGHT IN REACH.
--- NOTE | 2025-05-15 21:49 | NUR ---
SCHEDULED MEDICATIONS ADMINISTERED PER ORDER. PATIENT AMBULATED TO RESTROOM WITH MINIMAL X1 ASSIST, NC IN PLACE AT 2L. REPORTS SOB WITH AMBULATION. ASSESSMENT COMPLETE, FRESH WATER PROVIDED. VS OBTAINED AND RECORDED, INTAKE AND OUTPUT DOCUMENTED, NO FURTHER NEEDS, CALL LIGHT IN REACH, BED ALARM ON.
--- NOTE | 2025-05-15 22:49 | NUR ---
PT ASLEEP, RESPIRATIONS EVEN AND UNLABORED, BED ALARM ON, CALL LIGHT IN REACH. NO NEEDS AT THIS TIME.
[2025-05-16] VITALS (10 sets, daily range): BP systolic 128–140; BP diastolic 44–82
--- NOTE | 2025-05-16 00:12 | NUR ---
PT SLEEPING IN BED, RESPIRATIONS EVEN AND UNLABORED. BED ALARM ON, CALL LIGHT IN REACH. NO NEEDS AT THIS TIME.
--- NOTE | 2025-05-16 02:03 | NUR ---
PT ASLEEP IN BED, RESPIRATIONS EVEN AND UNLABORED. BED ALARM ON, CALL LIGHT IN REACH. NO NEEDS AT THIS TIME.
--- NOTE | 2025-05-16 03:14 | NUR ---
PT AMBULATED TO THE BATHROOM X1 PERSON SBA, REPORTS SOB OF BREATH WITH AMBULATION, DENIES NEEDS AT THE MOMENT. BED ALARM ON, CALL LIGHT IN REACH.
--- NOTE | 2025-05-16 04:21 | NUR ---
PT ASLEEP, RESPIRATIONS EVEN AND UNLABORED. CALL LIGHT IN REACH. NO NEEDS NOTED AT THIS TIME.
[2025-05-16 05:14] LABS: BASOPHILS 0.1 % (0.2-1.2); EOSINOPHILS 0 % (0.8-7.0); LYMPHOCYTES 2.0 % (21.8-53.1); MCH 28.9 PG (25.7-32.2); MCHC 31.4 g/dL (32.3-36.5); MCV 91.8 fL (79.0-92.2); MONOCYTES 3.9 % (5.3-12.2); NEUTROPHILS 92.2 % (34.0-67.9); RBC 3.05 M/uL (4.63-6.08)
[2025-05-16 05:31] LABS: ALT (SGPT) 73.0 U/L (14-59); AST (SGOT) 23.0 U/L (15-37); GLOMERULAR FILTRATION RATE,EST 49.0 mL/min (>60); PROTEIN, TOTAL 5.1 g/dL (6.4-8.2); UREA NITROGEN 27.0 mg/dL (7-18)
--- NOTE | 2025-05-16 06:21 | NUR ---
PT RESTING IN BED, VITAL SIGNS TAKEN AND RECORDED. DUE MEDICATIONS GIVEN ORDERED. AMBULATED TO THE BATHROOM X1 PERSON ASSIST WITH FWW. DENIES FURTHER NEEDS. CALL LIGHT IN REACH.
--- NOTE | 2025-05-16 06:58 | NUR ---
Pt report received from JONAH Schmitz. Pt is resting in bed on his left side, eyes closed, breathing is regular, even, and non-labored. Call light in reach, bedside table in reach, side rails up x4. White board updated.
--- NOTE | 2025-05-16 07:53 | NUR ---
PATIENT IN CHAIR AT THIS TIME. SYNOPTIC METEOROLOGIST CHARTED HOURLY ROUNDS. SYNOPTIC METEOROLOGIST ASSISTED PATIENT TO CHAIR. CALL LIGHT WITHIN REACH, NO FURTHER NEEDS.
--- NOTE | 2025-05-16 08:40 | NUR ---
In with pt for assessment. Pt is sitting up in the chair, finished with breakfast, RT Tess just completed a neb tx for the pt. Pt is coughing, dry harsh, non-productive. SOB noted, unable to speak in full and complete sentences without coughing. He states he is using the coronet. Pt medicated per emar, medicated with tessalon perles and mucinex as well per emar. Fresh iced water provided. Pt has increased work of breathing, retractions noted. notified.
--- NOTE | 2025-05-16 09:19 | NUR ---
PATIENT IN BED AT THIS TIME. ENVIRONMENT ARTIST CHARTED VITALS AND I&O'S. ENVIRONMENT ARTIST CHANGED PATIENTS LINENS. CALL LIGHT WITHIN REACH, NO FURTHER NEEDS AT THIS TIME.
--- NOTE | 2025-05-16 13:17 | NUR ---
Pt resting on his left side, visiting with guests. His breathing is regular, even, and non-labored, states he feels better this afternoon. Pt is speaking in full and complete sentences. Pt denies any needs at this time. Call light in reach.
--- NOTE | 2025-05-16 13:43 | NUR ---
PATIENT IN BED AT THIS TIME. GUMMED TAPE PRESS OPERATOR CHARTED VITALS AND I&O'S. CALL LIGHT WITHIN REACH, NO FURTHER NEEDS.
--- NOTE | 2025-05-16 16:43 | NUR ---
REPORT REC'D FROM JONAH RODRIGES. PT RESTING IN BED QUIETLY, BED LOW POSITION AND LOCKED, SIDERAILS UP X2, CALL FARIAS IN REACH. 20G TO L WRIST CAPPED
--- NOTE | 2025-05-16 16:50 | NUR ---
PATIENT IN BED AT THIS TIME. TUBE WINDER CHARTED HOURLY ROUNDS AND BLOOD SUGAR. JONAH RODRIGES NOTIFIED. CALL LIGHT WITHIN REACH, NO FURTHER NEEDS.
--- NOTE | 2025-05-16 18:01 | NUR ---
PATIENT IN BED AT THIS TIME. THIS BUS AIDE CHARTED VITALS AND I&O'S. THIS BUS AIDE SET PATIENT UP FOR SHOWER, PATIENT ABLE TO SHOWER INDEPENDENTLY, BUS AIDE WAITED IN ROOM FOR PATIENT TO BED FINSIHED WITH SHOWER. CALL LIGHT WITHIN REACH, NO FURTHER NEEDS AT THIS TIME.
--- NOTE | 2025-05-16 19:30 | NUR ---
REPORT RECEIVED FROM JONAH MOURA. PATIENT LAYING ON SIDE, SCROLLING ON PHONE. RESPIRATIONS EVEN AND UNLABORED. FRESH ICE WATER PROVIDED, NO FURTHER NEEDS, CALL LIGHT IN REACH
--- NOTE | 2025-05-16 20:59 | NUR ---
PATIENT RESTING IN BED COMFORTABLY, SCHEDULED MEDICATIONS ADMINISTERED PER ORDER. PATIENT DENIES ANY PAIN, REPORTS HE IS ABLE TO BREATH EASIER. LUNG SOUNDS DIMINISHED, WHEEZE NOTED IN THE BILATERAL UPPER QUADRANTS. PATIENT DENIES ANY FURTHER NEEDS, CALL LIGHT IN REACH
--- NOTE | 2025-05-16 22:45 | NUR ---
SCHEDULED MEDICATION ADMINISTERED PER ORDER, PATIENT AMBULATED TO RESTROOM, GOWN CHANGED. RESPIRATIONS EVEN AND UNLABORED.
[2025-05-17] VITALS (10 sets, daily range): BP systolic 122–151; BP diastolic 59–98
--- NOTE | 2025-05-17 00:32 | NUR ---
ROUNDED ON PATIENT, PATIENT RESTING WITH EYES CLOSED, RESPIRATIONS EVEN AND UNLABORED. NC ON 2L. NO NEEDS IDENTIFIED, CALL LIGHT IN REACH
--- NOTE | 2025-05-17 01:57 | NUR ---
ROUNDED ON PATIENT, PATIENT AWAKE AND ALERT, RESPIRATIONS EVEN AND UNLABORED. 2L NC IN PLACE, HE DENIES ANY NEEDS, CALL LIGHT IN REACH
--- NOTE | 2025-05-17 02:38 | NUR ---
ASSISTED TO BATHROOM 1PA WITH FWW. REFRESHED ICE WATER. NO OTHER NEEDS, CALL LGIHT IN REACH
--- NOTE | 2025-05-17 04:13 | NUR ---
ROUNDED ON PATIENT, PATIENT RESTING WITH EYES CLOSED, RESPIRATIONS EVEN AND UNLABORED. NC IN PLACE 2L. NO NEEDS IDENTIFIED, CALL LIGHT IN REACH
[2025-05-17 05:25] LABS: BASOPHILS 0.2 % (0.2-1.2); EOSINOPHILS 0 % (0.8-7.0); LYMPHOCYTES 2.3 % (21.8-53.1); MCH 28.9 PG (25.7-32.2); MCHC 31.7 g/dL (32.3-36.5); MCV 91.2 fL (79.0-92.2); MONOCYTES 5.1 % (5.3-12.2); NEUTROPHILS 88.4 % (34.0-67.9); RBC 3.08 M/uL (4.63-6.08)
[2025-05-17 05:39] LABS: GLOMERULAR FILTRATION RATE,EST 46.0 mL/min (>60); UREA NITROGEN 31.0 mg/dL (7-18)
--- NOTE | 2025-05-17 05:40 | NUR ---
PATIENT BROUGHT COFFEE PER REQUEST. LUNG SOUNDS AUSCULTATED, DIMINISHED THROUGHOUT. AMBULATED WELL TO RESTROOM WITH FWW AND SBA. BACK TO CHAIR, REQUESTING TO SIT UP FOR A BIT, HE DENIES ANY OTHER NEEDS. CALL LIGHT IN REACH.
--- NOTE | 2025-05-17 06:23 | NUR ---
SCHEDULED MEDICATION GIVEN PER ORDER. IV SALINE LOCKED, FLUSHES WITHOUT DIFFICULTY. REPIRATIONS EVEN AND UNLABORED, NC IN PLACE 2L. NO NEEDS, CALL LIGHT IN REACH
--- NOTE | 2025-05-17 07:05 | NUR ---
REPORT RECIEVED FROM JONAH MUELLER. PATIENT RESTING IN BED ON HIS LEFT SIDE WITH HIS EYES CLOSED. EVEN AND UNLABORED RESPIRATIONS NOTED. CALL LIGHT AND PERSONAL BELONGINGS ARE WITHIN REACH.
[2025-05-17] MEDS ORDERED: BUDESONIDE 0.5 MG/2 ML VIAL INH SCH (08:00)
--- NOTE | 2025-05-17 08:26 | NUR ---
PATIENT MEDICATED PER EMAR. RT IN WITH PATIENT GIVING BREATHING TREATMENT.
--- NOTE | 2025-05-17 09:26 | NUR ---
PATIENT MEDICATED PER EMAR. IV FLUSHED WITH 10ML OF NS, DRESSING IS INTACT. IV ABX INFUSING PER ORDER. PATIENT IS WITHOUT ANY PAIN AT THIS TIME. PATIENT ASSESSMENT COMPLETED. LUNG SOUNDS ARE DIMINISHED THROUGHOUT, BUT CLEAR AIR MOVEMENT THROUGHOUT CAN BE HEARD. PATIENT IS ON 2L NC. PATIENT WITH ACCAPELLA IN HAND AND READY TO USE. SUCTION AT CHAIR SIDE PER REQUEST "FOR WHEN I COUGH STUFF UP I CAN JUST GET IT OUT OF ME". FRESH ICE WATER PROVIDED. PATIENT WITHOUT FURTHER NEEDS AT THIS TIME. CALL LIGHT AND PERSONAL BELONGINGS ARE WITHIN REACH.
--- NOTE | 2025-05-17 10:14 | NUR ---
PATIENT BACK TO CHAIR AFTER WORKING WITH PT. VITALS AND I&O'S DONE AND CHARTED. CALL LIGHT IN REACH. NO FURTHER NEEDS AT THIS TIME.
--- NOTE | 2025-05-17 10:54 | NUR ---
PT IS SITTING IN RECLINER, AT BEDSIDE. DENIES NEEDS. CALL LIGHT IN REACH.
--- NOTE | 2025-05-17 11:55 | NUR ---
PATIENT MEDICATED PER EMAR. PATIENT IS WITHOUT ANY NEEDS AT THIS TIME. CALL LIGHT AND PERSONAL BELONGINGS ARE WITHIN REACH.
--- NOTE | 2025-05-17 12:07 | NUR ---
PATIENT SITTING UP AT EDGE OF BED EATING LUNCH AND IS WITHOUT ANY NEEDS AT THIS TIME. CALL LIGHT AND PERSONAL BELONGINGS ARE WITHIN REACH.
--- NOTE | 2025-05-17 13:42 | NUR ---
PATIENT RESTING IN BED ON HIS LEFT SIDE WITH HIS EYES CLOSED. EVEN AND UNLABORED RESPIRATIONS NOTED. PATIENT'S AT BEDSIDE AND IS WITHOUT ANY NEEDS AT THIS TIME. CALL LIGHT AND PERSONAL BELONGINGS ARE WITHIN REACH.
--- NOTE | 2025-05-17 14:35 | NUR ---
PATIENT UP TO BATHROOM AND BACK TO BED, TOLERATED WELL. PATIENT MEDICATED PER EMAR. PATIENT FOCUS ASSESSMENT COMPLETED. PATIENT RUL AND RLL IS CLEAR/DIMINISHED, PATIENT'S MARCO AND LLL IS DIMINISHED WITH INSPIRATORY WHEEZES. IS ON 2L NC. VITAL SIGNS TAKEN AND ARE STABLE. PATIENT WITH VISITORS AT BEDSIDE AND IS WITHOUT ANY NEEDS AT THIS TIME. CALL LIGHT AND PERSONAL BELONGINGS ARE WITHIN REACH.
--- NOTE | 2025-05-17 16:40 | NUR ---
PATIENT SITTING UP IN HIS CHAIR TALKING ON HIS PHONE. PATIENT WITHOUT ANY NEEDS AT THIS TIME. CALL LIGHT AND PERSONAL BELONGINGS ARE WITHIN REACH.
--- NOTE | 2025-05-17 17:10 | NUR ---
PATIENT MEDICATED PER EMAR. PATIENT SITTING UP IN HIS CHAIR EATING DINNER. PATIENT DENIES ANY PAIN AND IS WITHOUT FURTHER NEEDS AT THIS TIME. CALL LIGHT AND PERSONAL BELONGINGS ARE WITHIN REACH.
--- NOTE | 2025-05-17 18:20 | NUR ---
PATIENT SITTING UP IN HIS CHAIR. INTAKE AND OUTPUT DOCUMENTED. MOE VELASQUEZ IN ROOM TO ASSIST WITH VITAL SIGNS. FRESH WATER PROVIDED. PATIENT WITHOUT FURTHER NEEDS AT THIS TIME. CALL LIGHT AND PERSONAL BELONGINGS ARE WITHIN REACH. VITAL SIGNS STABLE.
--- NOTE | 2025-05-17 19:10 | NUR ---
REPORT RECEIVED FROM JONAH BROWN. PATIENT RECEIVING BREATHING TREATMENT FROM RT, RESTING WITH EYES CLOSED. RESPIRATIONS EVEN AND UNLABORED. NO NEEDS AT THIS TIME, CALL LIGHT IN REACH
--- NOTE | 2025-05-17 21:40 | NUR ---
SCHEDULED MEDICATIONS GIVEN PER ORDER, PATIENT AWAKE AND ALERT, RESPIRATIONS EVEN AND UNLABORED. NC AT 2L. ASSESSMENT COMPLETED, LUNG SOUNDS DIMINISHED THROUGHOUT, 1+ EDEMA IN BILATERAL LOWER EXTREMITIES. IV DRESSING CHANGED, IV DRESSING LEAKING AND BLOODY. IV DRESSING CHANGED, IV FLUSHES WELL WITH NO SIGNS OF INFILTRATION. PATIENT DENIES FURTHER NEEDS, CALL LIGHT IN REACH
--- NOTE | 2025-05-17 22:44 | NUR ---
ROUNDED ON PATIENT, PATIENT RESTING WITH EYES CLOSED, RESPIRATIONS EVEN AND UNLABORED. NO NEEDS IDENTIFIED, CALL LIGHT IN REACH
[2025-05-18] VITALS (10 sets, daily range): BP systolic 101–149; BP diastolic 55–78
--- NOTE | 2025-05-18 00:07 | NUR ---
ROUNDED ON PATIENT, PATIENT IS RESTING ON LEFT SIDE, RESPIRATIONS EVEN AND UNLABORED. NO NEEDS IDENTIFIED, CALL LIGHT IN REACH
--- NOTE | 2025-05-18 00:20 | NUR ---
CALL LIGHT ANSWERED. SBA PATIENT UP TO THE RESTROOM TO VOID UNMEASURED. PATIENT IS BACK SITTING AT THE EDGE OF THE BED. PATIENT REQUESTED A BREATHING TREATMENT. PRIMARY RN CALLED RT. PATIENT WALKED TO THE BATHROOM WITH STEADY GAIT USING WALKER. THIS ACCESSORIES REPAIRER NOTICED PATIENT HAVING SOB. PATIENT HAS NO FURTHER NEEDS AT THIS TIME.
--- NOTE | 2025-05-18 02:20 | NUR ---
ROUNDED ON PATIENT, RESPIRATIONS EVEN AND UNLABORED, NC IN PLACE AT 2L. NO NEEDS IDENTIFIED, CALL LIGHT IN REACH
--- NOTE | 2025-05-18 03:23 | NUR ---
PATIENT CALLED TO USE THE RESTROOM TO VOID SBA AND BACK TO BED. PATIENT STATED IF HE CAN HAVE BREATHING TREATMENT. PRIMARY RN NOTIFIED.
--- NOTE | 2025-05-18 03:57 | NUR ---
ROUNDED ON PATIENT, PATIENT AWAKE AND WATCHING TV. HOLDING YAUNKER IN HAND, DRY COUGH. REQUESTING BREATHING TREATMENT, RT CONTACTED. NO FURTHER NEEDS, CALL LIGHT IN REACH
[2025-05-18 05:17] LABS: MCH 29.0 PG (25.7-32.2); MCHC 31.5 g/dL (32.3-36.5); MCV 92.0 fL (79.0-92.2); RBC 3.14 M/uL (4.63-6.08)
[2025-05-18 05:30] LABS: GLOMERULAR FILTRATION RATE,EST 48.0 mL/min (>60); UREA NITROGEN 33.0 mg/dL (7-18)
[2025-05-18 05:46] LABS: BANDS, MANUAL DIFF 3; LYMPHOCYTES, MANUAL DIFF 4; MONOCYTES, MANUAL DIFF 2; NEUTROPHILS, MANUAL DIFF 91
--- NOTE | 2025-05-18 06:36 | NUR ---
ROUNDED ON PATIENT, SCHEDULED MEDICATION ADMINISTERED PER ORDER. RESPIRATIONS ARE EVEN AND UNLABORED, NC 2L IN PLACE. HE DENIES ANY NEEDS, CALL LIGHT IN REACH. LUNG SOUNDS REMAIN DIMINISHED THROUGHOUT, ALTHOUGH PATIENT STATES THAT HE IS FEELING IMPROVED.
--- NOTE | 2025-05-18 07:10 | NUR ---
REPORT RECIEVED FROM JONAH MUELLER. PATIENT RESTING IN BED ON HIS LEFT SIDE WITH HIS EYES CLOSED. EVEN AND UNLABORED RESPIRATIONS NOTED. WHITE BOARD UPDATED. PATIENT IS ON 2L NC. CALL LIGHT AND PERSONAL BELONGINGS ARE WITHIN REACH.
--- NOTE | 2025-05-18 08:15 | NUR ---
PATIENT SITTING UP IN HIS CHAIR. PATIENT MEDICATED PER EMAR. BREAKFAST TRAY DELIVERED AND SET UP IN FRONT OF PATIENT. IV FLUSHED WITH 10ML OF NS, DRESSING IS INTACT. IV ABX INFUSING PER ORDER. PATIENT IS WITHOUT FURTHER NEEDS AT THIS TIME. PATIENT IS ON 2L NC. CALL LIGHT AND PERSONAL BELONGINGS ARE WITHIN REACH.
--- NOTE | 2025-05-18 09:00 | NUR ---
PATIENT ABX COMPLETED. IV FLUSHED WITH 10ML OF NS, DRESSING IS INTACT. IV SALINE LOCKED. PATIENT ASSESSMENT COMPLETED. PATIENT IS ALERT AND ORIENTED X4. PATIENT RESTING IN BED "I WANT TO GET A NAP IN BEFORE MY COMES TODAY". PATIENT IS ON 2L NC, LUNG SOUNDS ARE DIMINISHED ALL THROUGHOUT WITH CLEAR AIR MOVEMENT NOTED IN BILATERAL UPPER LOBES, LEFT LOWER LOBES, AND INSPIRATORY WHEEZE NOTED TO RIGHT LOWER LOBE. PATIENT DENIES SOB. PATIENT HEART TONES ARE NORMAL WITH S1-S2 NOTED. PATIENT IS ON A 60G CARB DIET, BOWEL TONES ARE ACTIVE ALL THROUGHOUT, PATIENT LAST BM WAS YESTERDAY (05/17). PATIENT BILATERAL LOWER EXTREMETIES WITH 2+ PITTING EDEMA. PATIENT DENIES ANY NUMBNESS OR TINGLING IN UPPER OR LOWER EXTREMETIES. PATIENT DENIES ANY PAIN OR DISCOMFORT AT THIS TIME. PATIENT WITHOUT FURTHER NEEDS AT THIS TIME. CALL LIGHT AND PERSONAL BELONGINGS ARE WITHIN REACH. VITAL SIGNS TAKEN AND ARE STABLE. PATIENT DID STATES THAT "MY FEET DO FEEL MORE TIGHT TODAY, BUT I HAVE A WATER PILL I CAN TAKE WHEN I GET HOME". DR PACHECO NOTIFIED.
--- NOTE | 2025-05-18 09:06 | NUR ---
INTO SEE PATIENT. PATIENT STATES HE IS FEELING BETTER AFTER BEING HERE FOR THE WEEKEND. PATIENT WEARS OXYGEN THROUGH [place]. PATIENT TO GO HOME WITH WHEN MEDICALLY CLEARED FOR DISCHARGE. CARDIOPUL PAPERWORK SENT LAST WEEK.
--- NOTE | 2025-05-18 09:35 | NUR ---
PATIENT SITTING UP IN CHAIR TALKING WITH AT THIS TIME. RN DID VITALS AND I&O'S. FRESH COFFEE GIVEN. PATIENT STATED HE DID AM AND ORAL CARE ALREADY. CALL LIGHT IN REACH. NO FURTHER NEEDS AT THIS TIME.
[2025-05-18] MEDS ORDERED: FUROSEMIDE 40 MG/4 ML VIAL IV ONE (10:00)
--- NOTE | 2025-05-18 10:15 | NUR ---
PATIENT MEDICATED PER EMAR. IV FLUSHED WITH 10ML OF NS, DRESSING IS INTACT, IV IS SALINE LOCKED. PATIENT EDUCATED TO CHANGE POSITIONS SLOWLY AND IF HE BECOMES DIZZY, TO CALL STAFF. PATIENT WITH VERBAL UNDERSTANDING. PATIENT WITHOUT FURTHER NEEDS AT THIS TIME. CALL LIGHT AND PERSONAL BELONGINGS ARE WITHIN REACH.
--- NOTE | 2025-05-18 11:20 | NUR ---
US TECH AT BEDSIDE
--- NOTE | 2025-05-18 11:52 | NUR ---
PATIENT SITTING UP AT EDGE OF BED VISITING WITH VISITOR AT BEDSIDE. PATIENT MEDICATED PER EMAR. PATIENT DENIES ANY PAIN. PATIENT WITHOUT FURTHER NEEDS AT THIS TIME. CALL LIGHT AND PERSONAL BELONGINGS ARE WITHIN REACH.
--- NOTE | 2025-05-18 12:20 | NUR ---
PATIENT SITTING UP AT EDGE OF BED EATING LUNCH AND VISITING WITH VISITOR. PATIENT WITHOUT ANY NEEDS AT THIS TIME. CALL LIGHT AND PERSONAL BELONGINGS ARE WITHIN REACH.
--- NOTE | 2025-05-18 13:07 | NUR ---
PATIENT RESTING IN BED WITH HIS AT BEDSIDE. PATIENT IS ON 2L NC. FRESH ICE WATER PROVIDED. PATIENT AND WITHOUT ANY NEEDS AT THIS TIME. CALL LIGHT AND PERSONAL BELONGINGS ARE WITHIN REACH.
--- NOTE | 2025-05-18 13:27 | NUR ---
PATIENT IN BED AT THIS TIME. FILM PAINTER CHARTED VITALS AND I&O'S. CALL LIGHT WITHIN REACH, NO FURTHER NEEDS AT THIS TIME.
--- NOTE | 2025-05-18 14:21 | NUR ---
PATIENT RESTING IN BED ON HIS LEFT SIDE ON HIS PHONE. PATIENT WITHOUT FURTHER NEEDS AT THIS TIME. CALL LIGHT AND PERSONAL BELONGINGS ARE WITHIN REACH.
--- NOTE | 2025-05-18 15:50 | NUR ---
PATIENT UP WALKING THE HALLS WITH THERAPY AT THIS TIME
--- NOTE | 2025-05-18 16:27 | NUR ---
PATIENT MEDICATED PER EMAR. OXYGEN TURNED OFF AT THIS TIME DUE TO PATIENT OXYGEN SATURATION OF 100% ON 2L NC AND NURSE NOTIFY ORDER FOR MAINTAINING OXYGEN LEVELS BETWEEN 88%-92%. PATIENT TRANSFERRED FROM CHAIR TO BED FOR ECHO. CALL LIGHT AND PERSONAL BELONGINGS ARE WITHIN REACH.
--- NOTE | 2025-05-18 17:03 | NUR ---
PATIENT MEDICATED PER EMAR. PATIENT SITTING AT EDGE OF BED VISITING WITH VISITORS IN HIS ROOM. PATIENT REMAINS ON ROOM AIR WITH SATURATIONS OF 96%. PATIENT WITHOUT FURTHER NEEDS AT THIS TIME. CALL LIGHT AND PERSONAL BELONGINGS ARE WITHIN REACH.
--- NOTE | 2025-05-18 18:38 | NUR ---
IN TO CHECK ON PATIENT AND OFFER A WALK. PATIENT WAS VISIBLY SHORT OF BREATH AND STATES "I WAS JUST REALLY SHORT OF BREATH, SO I PUT MY OXYGEN BACK ON." PATIENT OXYGEN LEVEL CHECKED AND WAS 99% ON 2L NC. PATIENT DENIES A WALK AT THIS TIME, BUT STATES HE "WILL ASK LATER WHEN I RECOVER MORE AND MAYBE THE GALS ON TONIGHT CAN HELP ME, BUT FOR NOW I JUST WANT TO REST AND TAKE A NAP". FRESH ICE WATER PROVIDED. PATIENT WITHOUT FURTHER NEEDS AT THIS TIME. CALL LIGHT AND PERSONAL BELONGINGS ARE WITHIN REACH. LUNG SOUNDS ASSESSED AND NOTED TO BE DIMINISHED WITH CLEAR AIR NOTED IN THE MARCO, LLL, AND RLL. RUL NOTED TO BE DIMINISHED.
--- NOTE | 2025-05-18 19:30 | NUR ---
PT RESTING IN BED, DENIES ANY NEEDS. CALL LIGHT WITHIN REACH. ALL PT CARE NEEDS MET. WILL RETURN LATER, PT WOULD LIKE TO WALK THIS MORNING.
--- NOTE | 2025-05-18 20:22 | NUR ---
pt RESTING IN BED AWAKE. VSS. SPO2 100% WITH 2L OXYGEN BY NC. pt STATES "THE BREATHING IS MUCH BETTER". CONGESTED COUGH NOTED. DENIES TOILETING NEEDS. CBG 160. CALL LIGHT IN REACH. COUNTRY MUSIC ON TV PER REQUEST.
--- NOTE | 2025-05-18 20:35 | NUR ---
PT CALLED FOR UPDATE, INFORMED PT IS DOING WELL. WORK OF BREATHING IS FEELING BETTER. NO NEEDS, INFORMED ECHO COUGH POTENTIALLY BE BACK TOMORROW. SHE REPORTS PATIENT IS GETTING UP TO BATHROOM WITHOUT ASSISTANCE, I WILL PLACE BED ALARM PT EVEN ADMITTED TO ME THAT HE FEELS WEAK IN THE LEGS. NO OTHER CONCERNS.
--- NOTE | 2025-05-18 23:35 | NUR ---
PT SLEEPING AT THIS TIME, PT DID NOT AMBULATE THIS EVENING BUT IF WAKES UP COULD BENEFIT. BED ALARM WAS PLACED ON PATIENT INCASE HE ATTEMPTS TO GET UP. URINAL PLACED ON RAILING WIHT URI-CLIP, PT INFORMED IT WOULD BE BEST TO URINATE AT BEDSIDE AND CALL US IF FILLS UP. CALL LIGHT WITHIN REACH, RESTING WITH EYES CLOSED. ALLLOWED TO REST AT THIS TIME.
--- NOTE | 2025-05-18 23:56 | NUR ---
Pt report received from JONAH Fleming. Pt is resting on his left side in bed, eyes closed, breathing is regular, even, and non-labored, television on.
[2025-05-19] VITALS (10 sets, daily range): BP systolic 100–148; BP diastolic 55–72
--- NOTE | 2025-05-19 02:09 | NUR ---
In with pt in response to bed alarm. Pt was sitting at edge of bed, states he was about to stand up and use the urinal, "but the bed alarm went off". SBA as pt ambulated into the bathroom to use the toilet. Pt used the call light when he finished (I had stayed in the room to wait for him). SBA as he ambulated back to bed. VS obtained at this time. Pt states he feels better every day and he anticipates getting to go home later today. His breathing is regular, even, and non-labored with the little bit of activity of walking to and from the toilet. Pt denies any needs at this time. Call light in reach.
[2025-05-19 05:20] LABS: MCH 29.2 PG (25.7-32.2); MCHC 32.1 g/dL (32.3-36.5); MCV 90.9 fL (79.0-92.2); RBC 3.19 M/uL (4.63-6.08)
[2025-05-19 05:31] LABS: GLOMERULAR FILTRATION RATE,EST 47.0 mL/min (>60); UREA NITROGEN 38.0 mg/dL (7-18)
[2025-05-19 05:36] LABS: BANDS, MANUAL DIFF 2; LYMPHOCYTES, MANUAL DIFF 3; MONOCYTES, MANUAL DIFF 7; NEUTROPHILS, MANUAL DIFF 88
--- NOTE | 2025-05-19 08:27 | NUR ---
PATIENT SITING ON EDGE OF BED, BREAKFAST IN ROOM. WHITE BOARD UPDATED. BLOOD SUGAR DONE, RN NOTIFIED OF RESULT. PATIENT STATED HE DID AM CARE EARLIER. CALL LIGHT IN REACH. NO FURTHER NEEDS AT THIS TIME.
[2025-05-19] MEDS ORDERED: FUROSEMIDE 40 MG/4 ML VIAL IV ONE (09:15)
--- NOTE | 2025-05-19 09:27 | NUR ---
PATIENT SITTING UP ON EDGE OF BED, FAMILY IN ROOM. VITALS AND I&O'S DONE AND CHARTED. CALL LIGHT IN REACH. NO FURTHER NEEDS AT THIS TIME.
--- NOTE | 2025-05-19 11:25 | NUR ---
Spoke with Sierra and his . Pt has new issues with heart rate today and will not dc. I spoke with them as staff have felt pt needed a SNF. Per notes pt has been refusing this and was able to walk independently. Pt now having tachycardia today. Pt and both decline SNF. They would like HH from [facility] as they used in the past and pt made great improvement. They would eventually like to do Cardio/Pulm rehab, but both feel pt needs to be in better condition. Dr Tobias updated and will write orders on dc. Pt is not ready for dc at this time per
--- NOTE | 2025-05-19 11:48 | NUR ---
Patient sitting up in chair visiting with his , no distress. Patient denies needs at this time, personal supplies and call light within reach. Patient is on 2L oxygen per nc, respiration non labored at rest.
--- NOTE | 2025-05-19 12:14 | NUR ---
Patient up to restroom to void. Patient notably short of breath, pt back to bed in tripod position, encouraged pt to rest. at bedside visiting. Patient denies needs at this time.
--- NOTE | 2025-05-19 13:30 | NUR ---
PATIENT IN BED RESTING AT THIS TIME. IN ROOM. VITALS AND I&O'S DONE AND CHARTED. CALL LIGHT IN REACH. NO FURTHER NEEDS AT THIS TIME.
--- NOTE | 2025-05-19 15:04 | NUR ---
PATIENT SITTING ON SIDE OF BED TALKING WITH FAMILY. PATIENT IS ON 2L/NC. PATIENT DENIES ANY NEEDS AT THIS TIME. CALL LIGHT WITH IN REACH.
--- NOTE | 2025-05-19 18:23 | NUR ---
Shower set up for patient. Patient assisted to sitting position to shower, pt able to wash himself without difficulty. Oxygen increased to 4L with activity then back down to 2L per nc once pt back in bed. Patient short of breath with exertion, he recovers with rest. Patient denies further needs, personal supplies and call light within reach.
--- NOTE | 2025-05-19 19:22 | NUR ---
REPORT RECEIVED FROM DAY SHIFT RN. PT LYING IN BED ALERT AND ORIENTED. DENIES NEEDS. WHITE BOARD UPDATED. CALL LIGHT IN REACH.
--- NOTE | 2025-05-19 20:57 | NUR ---
EVENING ASSESSMENT COMPLETE. SCHEDULED MEDS ADMIN PER EMAR. PT DENIES PAIN OR NAUSEA. DENIES SOB. 2L/NC IN PLACE. SpO2 100%. RESPIRATIONS EVEN. SCATTERED EXPIRATORY WHEEZE AUSCULTATED. OCCASIONAL COUGH NOTED. BLE EDEMA NOTED. VS AND I&O OBTAINED. PT DENIES QUESTIONS OR CONCERNS. CALL LIGHT IN REACH.
--- NOTE | 2025-05-19 23:44 | NUR ---
PT LYING ON LEFT SIDE RESTING WITH EYES CLOSED. RESPIRATIONS EVEN. CALL LIGHT IN REACH.
[2025-05-20] VITALS (10 sets, daily range): BP systolic 99–133; BP diastolic 47–69
--- NOTE | 2025-05-20 00:46 | NUR ---
PT IN BED RESTING IN BED WITH EYES CLOSED. RESPIRATIONS EVEN. 2L/NC IN PLACE. CALL LIGHT IN REACH.
--- NOTE | 2025-05-20 02:40 | NUR ---
BED ALARM SOUNDING. PT UP TO BR WITH FWW AND SBA TO VOID AN UNMEASURED AMOUNT. BACK TO BED, SHARI FAIR. PT REPORTS SOB. DRY COUGH NOTED. SpO2 92-96% WITH 2L/NC. HR 90'S. LUNGS DIM THROUGHOUT. RT NOTIFIED. PRN BREATHING TX ADMIN. PT REPORTS RELIEF. PT LEFT LYING IN RELAXED POSITION. RESPIRATIONS EVEN. BED ALARM FOR SAFETY. CALL LIGHT IN REACH.
--- NOTE | 2025-05-20 05:15 | NUR ---
LAB IN FOR MORNING DRAW. PT UP TO BR WITH FWW AND SBA TO VOID AN UMEASURED AMOUNT. OXYGEN TITRATED TO 4L/NC WITH ACTIVITY. BACK TO BED, SHARI WELL. DENIES SOB AT THIS TIME. SpO2 MID 90'S ON 2L/NC. VS AND I&O OBTAINED. COFFEE PROVIDED. NO FURTHER NEEDS. BED ALARM FOR SAFETY.
[2025-05-20 05:21] LABS: MCH 29.0 PG (25.7-32.2); MCHC 31.7 g/dL (32.3-36.5); MCV 91.5 fL (79.0-92.2); RBC 3.28 M/uL (4.63-6.08)
[2025-05-20 05:28] LABS: GLOMERULAR FILTRATION RATE,EST 41.0 mL/min (>60); UREA NITROGEN 43.0 mg/dL (7-18)
[2025-05-20 05:41] LABS: BANDS, MANUAL DIFF 1; EOSINOPHILS, MANUAL DIFF 2; LYMPHOCYTES, MANUAL DIFF 13; MONOCYTES, MANUAL DIFF 1; NEUTROPHILS, MANUAL DIFF 83
--- NOTE | 2025-05-20 06:49 | NUR ---
called back pt's charla to provide her with pt update, update provided. no additional needs or concerns verbalized.
--- NOTE | 2025-05-20 07:17 | NUR ---
PATIENT SLEEPING IN BED. WHITEBOARD UPDATED. CALL LIGHT IS WITHIN REACH AND NO FURTHER NEEDS AT THIS TIME.
--- NOTE | 2025-05-20 07:55 | NUR ---
PATIENT BLOOD SUGAR WAS 122. PATIENT DECLINED TO GET INTO [facility] STATED HE WOULD WHEN BREAKFAST CAME. PT CALL LIGHT IS WITHIN REACH AND NO FURTHER NEEDS AT THIS TIME.
[2025-05-20] MEDS ORDERED: INSULIN GLARGINE-YFGN 100 UNIT/ML ML SUB-Q SCH (09:00)
--- NOTE | 2025-05-20 10:00 | NUR ---
PATIENT AND IN [facility]. DISCUSSED DC PLAN TO HAVE HOME HEALTH WHEN DC'D TO HOME. VERBALIZES UNDERSTANDING. PREVIOUSLY HAS WORKED WITH HOME HEALTH WITH GOOD RESULTS. INFORMED STILL AWAITING ECHO RESULTS. VERBALIZE UNDERSTANDING. NO OTHER CM NEEDS NOTED AT THIS TIME.
--- NOTE | 2025-05-20 10:45 | NUR ---
PT DECLINED SPIRITUAL CARE SERVICES. PROVIDED PRAYER.
--- NOTE | 2025-05-20 11:09 | NUR ---
PATIENT IS SITTING ON THE SIDE OF THE BED. PATIENT DECLINED TO SHOWER BECAUSE HE HAD A SHOWER LAST NIGHT. PATIENTS CALL LIGHT IS WITHIN REACH AND NO FURTHER NEEDS AT THIS TIME.
--- NOTE | 2025-05-20 12:14 | NUR ---
Patient sitting up in chair eating lunch, tolerating well. Patient denies shortness of breath at resting, pt remains on 2L oxygen per nc, respirations non labored. Patient's at bedside visiting. No current needs, personal supplies and call light within reach.
--- NOTE | 2025-05-20 12:49 | NUR ---
PATIENT IS SITTING IN CHAIR. CALL LIGHT IS WITHIN REACH AND NO FURTHER NEEDS AT THIS TIME.
--- NOTE | 2025-05-20 15:41 | NUR ---
IN TO CHECK ON PT. PT SITTING AT BEDSIDE LEANING ON SIDE TABLE. PT HAS VISITORS IN THE ROOM. PT REQUESTS FRESH ICE WATER. ICE WATER REFILLED. PT HAS CALL LIGHT WITH IN REACH. PT HAS NO FURTHER NEEDS AT THIS TIME.
--- NOTE | 2025-05-20 17:35 | NUR ---
Patient awake, alert and oriented x3, no acute distress. Patient denies shortness of breath at rest, respiration non labored. Vital signs stable, afebrile. Tele placed per order.
--- NOTE | 2025-05-20 18:20 | NUR ---
PATIENT IS LAYING IN BED. CALL LIGHT IS WITHIN REACH AND NO FURTHER NEEDS AT THIS TIME.
--- NOTE | 2025-05-20 19:02 | NUR ---
PATIENT WAS ASSISTED SBA TO THE BATHROOM. A WARM BLANKET WAS PROVIDED. PATIENTS CALL LIGHT IS WITHIN REACH AND NO FUTHER NEEDS AT THIS TIME.
--- NOTE | 2025-05-20 19:51 | NUR ---
PT SITTING AT BEDSIDE, GETTING BREATHING TREATMENT, RESPIRATIONS EVEN AND UNLABORED. DENIES NEED AT THIS TIME. CALL LIGHT IN REACH.
--- NOTE | 2025-05-20 20:23 | NUR ---
ACCOUNT MANAGER EDUCATION OBTAINED VITALS AND I&O. PT STATES NO NEEDS AT THIS TIME. CALL LIGHT WITHIN REACH.
--- NOTE | 2025-05-20 20:49 | NUR ---
PT IN BED, ASSESSMENT DONE, DUE MEDICATIONS GIVEN. NO C/O PAIN. DENIES NEEDS. CALL LIGHT IN REACH.
[2025-05-20] MEDS ORDERED: COLCHICINE 0.6 MG TAB PO SCH (21:00)
--- NOTE | 2025-05-20 23:42 | NUR ---
PT SITTING AT BEDSIDE, RESPIRATIONS EVEN AND UNLABORED. DENIES NEEDS. CALL LIGHT IN REACH.
[2025-05-21] VITALS (13 sets, daily range): BP systolic 91–115; BP diastolic 43–66
--- NOTE | 2025-05-21 01:42 | NUR ---
DEFENSE TRAVEL ADMINISTRATOR OBTAINED VITALS AND I&O. ICE WATER REFILLED. PT STATES NO NEEDS AT THIS TIME. CALL LIGHT WITHIN REACH.
--- NOTE | 2025-05-21 01:59 | NUR ---
PT RESTING IN BED. RESPIRATIONS EVEN AND UNLABORED. NO NEEDS NOTED AT THIS TIME. CALL LIGHT IN REACH.
--- NOTE | 2025-05-21 03:39 | NUR ---
PT AMBULATED TO THE BATHROOM TO HAVE A BOWEL MOVEMENT. ASSISTED PT BACK IN BED. PT DENIES SOB ON AMBULATION. BED ALARM ON. DENIES NEEDS, CALL LIGHT IN REACH.
--- NOTE | 2025-05-21 05:45 | NUR ---
assisted pt to bathroom, sba with fww. voided and wanting to sit in chair, chair alarm on and call light in reach along with personal belongings. vincenzo fish also in room. pt denies additional needs or concerns.
--- NOTE | 2025-05-21 06:02 | NUR ---
PT RESTING IN BED, VITAL SIGNS TAKEN AND RECORDED. INTAKE AND OUTPUT RECORDED. PT DENIES FEELING SOB ON AMBULATION AND STATED THAT HE FEELS A LOT BETTER. DENIES NEEDS AT THIS TIME. CALL LIGHT IN REACH.
[2025-05-21 06:11] LABS: MCH 29.2 PG (25.7-32.2); MCHC 32.2 g/dL (32.3-36.5); MCV 90.8 fL (79.0-92.2); RBC 3.46 M/uL (4.63-6.08)
[2025-05-21 06:22] LABS: BANDS, MANUAL DIFF 2; EOSINOPHILS, MANUAL DIFF 2; GLOMERULAR FILTRATION RATE,EST 44.0 mL/min (>60); LYMPHOCYTES, MANUAL DIFF 10; MONOCYTES, MANUAL DIFF 9; NEUTROPHILS, MANUAL DIFF 77; UREA NITROGEN 40.0 mg/dL (7-18)
--- NOTE | 2025-05-21 07:06 | NUR ---
PATIENT IN BED ON LEFT SIDE, EYES CLOSED, CHEST RISE EVEN AND UNLABORED. CALL LIGHT AND PERSONAL BELONGINGS IN REACH. REPORT RECEIVED FROM JONAH MUELLER. NO IMMEDIATE NEEDS NOTED AT THIS TIME.
--- NOTE | 2025-05-21 07:45 | NUR ---
PATIENT IN BED AT THIS TIME. KILN FURNITURE SAW TENDER CHARTED HOURLY ROUNDS AND BLOOD SUGAR. CALL LIGHT WIHTIN REACH, NO FURTHER NEEDS AT THIS TIME.
--- NOTE | 2025-05-21 09:00 | NUR ---
INTO SEE PATIENT. IM LETTER REVIEWED. WILL ORDER HOME HEALTH AT TIME OF DISCHARGE. NO FUTHER CM NEEDS AT THIS TIME.
--- NOTE | 2025-05-21 09:00 | NUR ---
PATIENT IN CHAIR, EYES OPEN, CHEST RISE EVEN AND UNLABORED, AT BEDSIDE. ASSESSMENT COMPLETE AND SCHEDULED MEDICATIONS ADMINISTERED. PATIENT DENIES CONCERNS AT THIS TIME. SCHEDULED IV INFUSION STARTED AND INFUSING WITHOUT DIFFICULTY. CALL LIGHT AND PERSONAL BELONGINGS IN REACH OF PATIENT.
--- NOTE | 2025-05-21 09:38 | NUR ---
PATIENT IN CHAIR AT THIS TIME. MOE SCHMIDT CHARTED VITALS AND I&O'S. CALL LIGHT WITHIN REACH, NO FURTHER NEEDS.
--- NOTE | 2025-05-21 10:05 | NUR ---
PATIENT CALL LIGHT ANSWERED. PATIENT IN CHAIR, EYES OPEN, CHEST RISE EVEN AND UNLABORED. PATIENT IV ALARMING, RESTARTED, PATIENT EDUCATION PROVIDED TO AVOID FURTHER OCCLUSION, INFUSING WITHOUT DIFFICULTY. PATIENT DENIES CONCERNS AT THIS TIME. CALL LIGHT AND PERSONAL BELONGINGS IN REACH OF PATIENT.
--- NOTE | 2025-05-21 10:22 | NUR ---
PATIENT IN CHAIR AT THIS TIME. TRAIL MAINTENANCE WORKER CHANGED LINENS. CALL LIGHT WIHTIN REACH, NO FURTHER NEEDS.
[2025-05-21] MEDS ORDERED: METOPROLOL TARTRATE 50 MG TAB PO ONE (10:30)
--- NOTE | 2025-05-21 11:00 | NUR ---
PATIENT IN CHAIR, EYES OPEN, CHEST RISE EVEN AND UNLABORED. SCHEDULED MEDICATION ADMINISTERED. FAMILY AT BEDSIDE. PATIENT DENIES FURTHER CONCERNS AT THIS TIME. CALL LIGHT AND PERSONAL BELONGINGS IN REACH OF PATIENT.
[2025-05-21] MEDS ORDERED: FUROSEMIDE 40 MG TAB PO SCH (12:05)
--- NOTE | 2025-05-21 12:10 | NUR ---
PATIENT SITTING AT SIDE OF BED, EYES OPEN, CHEST RISE EVEN AND UNLABORED. PATIENT IS USING [employer]. SCHEDULED MEDICAITON INCLUDING INSULIN ADMINISTERED, PATIENT TOLERATED WELL. PATIENT LUNCH ARRIVED. PATIENT DENIES CONCERNS AT THIS TIME. CALL LIGHT AND PERSONAL BELONGINGS IN REACH OF PATIENT.
--- NOTE | 2025-05-21 12:50 | NUR ---
PATIENT IN BED, EYES OPEN, CHEST RISE EVEN AND UNLABORED. TELE STICKER REPLACED, NOW READING ACCURATLY. AT BEDSIDE. PATIENT DENEIS CONCERNS AT THIS TIME. CALL LIGHT AND PERSONAL BELONGINGS IN REACH OF PATIENT.
--- NOTE | 2025-05-21 13:46 | NUR ---
PATIENT IN BED AT THIS TIME. REPULPING SUPERVISOR CHARTED VIALS AND I&O'S. PATIENT STATED HE WANTED A SHOWER AT 1500. CALL LIGHT WIHTIN REACH, NO FURTHER NEEDS.
--- NOTE | 2025-05-21 14:10 | NUR ---
PATIENT IN BED AT THIS TIME. CIGARETTE INSPECTOR ASSISTED PATIENT TO BATHROOM AND THEN BACK TO BED. ALARMS SET, NO FURTHER NEEDS AT THIS TIME, CALL LIGHT WITHIN REACH.
--- NOTE | 2025-05-21 14:56 | NUR ---
PATIENT SITTING AT EDGE OF BED, EYES OPEN, CHEST RISE EVEN AND UNLABORED. AT BEDSIDE. CALL LIGHT AND PERSONAL BELONGINGS IN REACH OF PATIENT. PATIENT TEACHING PROVIDED REGARDING SAFE AMBULATION TO PATIENT AND . ADVISED PATIENT TO CALL NURSING PRIOR TO AMBULATION. BED ALARM IS ON. REVIEWED ADVERSE EVENTS THAT MAY OCCUR IF PATIENT DOES NOT AMBULATE SAFELY. PATIENT AND VERBALIZED UNDERSTANDING AND DENY FURTHER QUESTIONS OR CONCERNS AT THIS TIME.
--- NOTE | 2025-05-21 15:11 | NUR ---
PATIENT IN BED, EYES CLOSED, CHEST RISE EVEN AND UNLABORED. AT BEDSIDE, DENIES CONCERNS AT THIS TIME. CALL LIGHT AND PERSONAL BELONGINGS IN REACH OF PATIENT. BED LOW AND LOCKED, BED ALARM ON.
--- NOTE | 2025-05-21 16:08 | NUR ---
PATIENT IN BED ON LEFT SIDE, EYES CLOSED, CHEST RISE EVEN AND UNLABORED. CALL LIGHT AND PERSONAL BELONGINGS IN REACH OF PATIENT. NO APPARENT NEEDS NOTED AT THIS TIME.
--- NOTE | 2025-05-21 17:50 | NUR ---
PATIENT IN BED, EYES OPEN, CHEST RISE EVEN AND UNLABORED. PATIENT DENIES CONCERNS AT THIS TIME. CALL LIGHT AND PERSONAL BELONGINGS IN REACH OF PATIENT.
--- NOTE | 2025-05-21 18:47 | NUR ---
PAIENT IN BED AT THIS TIME. CLAIMS CONFIGURATION ANALYST CHARED VITALS AND I&O'S. PATIENT WANTED SHOWER TOMORROW INSTEAD. CALL LIGHT WITHIN REACH, NO FURTHER NEEDS.
--- NOTE | 2025-05-21 19:27 | NUR ---
REPORT RECEIVED FROM DAY SHIFT RN. PATIENT RESTING IN BED ON BACK. BED ALARM ON. DENIES NEEDS AT THIS TIME. CALL LIGHT IN REACH.
[2025-05-21] MEDS ORDERED: ALBUTEROL/IPRATROPIUM 3 ML NEB INH SCH (20:00)
--- NOTE | 2025-05-21 20:20 | NUR ---
PATIENT SITTING ON SIDE OF THE BED TALKING TO RESPIRATORY THERAPY, VS OBTAINED, NC IN PLACE AT 2L. RESPIRATIONS EVEN AND UNLABORED. BED ALARM ON.
[2025-05-21] MEDS ORDERED: METOPROLOL SUCCINATE 50 MG TABCR PO SCH (21:00)
--- NOTE | 2025-05-21 23:08 | NUR ---
PATIENT WAS ASSISTED SBA TO THE BATHROOM. CALL LIGHT IS WITHIN REACH AND NO FURTHER NEEDS AT THIS TIME.
--- NOTE | 2025-05-21 23:09 | NUR ---
PATIENT RESTING IN BED WITH EYES CLOSED. RESPIRATIONS EVEN AND UNLABORED. BED ALARM ON. CALL LIGHT IN REACH.
[2025-05-22] VITALS (7 sets, daily range): BP systolic 96–129; BP diastolic 49–94
--- NOTE | 2025-05-22 01:05 | NUR ---
PATIENT RESTING IN BED WITH EYES CLOSED. RESPIRATIONS EVEN AND UNLABORED. CALL LIGHT IN REACH. BED ALARM ON.
--- NOTE | 2025-05-22 01:48 | NUR ---
PATIENT WAS ASSISTED SBA TO THE BATHROOM. PATIENTS VITAL SIGNS AND I7OS WERE DONE PATIENTS CALL LIGHT IS WITHIN REACH AND NO FURTHER NEEDS AT THIS TIME.
--- NOTE | 2025-05-22 03:05 | NUR ---
PATIENT RESTING IN BED. RESPIRATIONS EVEN AND UNLABORED. BED ALARM ON. CALL LIGHT IN REACH.
--- NOTE | 2025-05-22 05:04 | NUR ---
PATIENT WAS ASSISTED SBA TO THE BATHROOM. PATIENTS VITAL SIGNS AND I&OS WERE TAKEN. PATIENTS CALL LIGHT IS WITHIN REACH AND NO FUTHER NEEDS AT THIS TIME.
[2025-05-22 05:48] LABS: BASOPHILS 0.1 % (0.2-1.2); EOSINOPHILS 0.7 % (0.8-7.0); LYMPHOCYTES 7.6 % (21.8-53.1); MCH 28.9 PG (25.7-32.2); MCHC 31.4 g/dL (32.3-36.5); MCV 92.0 fL (79.0-92.2); MONOCYTES 4.9 % (5.3-12.2); NEUTROPHILS 82.0 % (34.0-67.9); RBC 3.50 M/uL (4.63-6.08)
[2025-05-22 06:05] LABS: ALT (SGPT) 193.0 U/L (14-59); AST (SGOT) 35.0 U/L (15-37); GLOMERULAR FILTRATION RATE,EST 41.0 mL/min (>60); PROTEIN, TOTAL 5.3 g/dL (6.4-8.2); UREA NITROGEN 36.0 mg/dL (7-18)
--- NOTE | 2025-05-22 06:41 | NUR ---
PATIENT RESTING IN BED. RESPIRATIONS EVEN AND UNLABORED. CALL LIGHT IN REACH. BED ALARM ON.
--- NOTE | 2025-05-22 07:14 | NUR ---
PT RESTING IN BED WITH EYES CLOSED AND RESPIRATIONS EVEN AND UNLABORED. REPORT RECEIVED FROM HEATHER MCKENZIE.
--- NOTE | 2025-05-22 07:54 | NUR ---
PATIENT IN CHAIR AT THIS TIME. SENIOR BUSINESS ANALYST CHARTED HOURLY ROUNDS AND BLOOD SUGAR. SENIOR BUSINESS ANALYST MOVED PATIENT TO CHAIR. CALL LIGHT WITHIN REACH, NO FURTHER NEEDS AT THIS TIME.
--- NOTE | 2025-05-22 08:09 | NUR ---
BROUGHT PATIENT A NEW CUP OF COFFEE. PATIENT IS SITTING UP IN HIS CHAIR WATCHING TV.
--- NOTE | 2025-05-22 08:55 | NUR ---
PT ASSESSMENT COMPLETE. PT STATES HE FEELS "GOOD" THIS MORNING. BLE [place] HAS IMPROVED FROM YESTERDAY AND IS NOW 1+. ENCOURAGED PT TO KEEP BLE ELEVATED WHILE SITTING AND PT STATES "I'M DOING THE EXERCISED THAT PHYSICAL THERAPY TOLD ME TO DO". PT HAS 02 AT 2L PER NC (PT'S BASELINE), AND DENIES SOB. REMINDED PT TO CALL FOR SBA FROM STAFF PRIOR TO GETTING OUT OF BED. PT STATED UNDERSTANDING. FAMILY IN ROOM WITH PT AT THIS TIME. NO REQUESTS AT THIS TIME. CALL LIGHT WITHIN REACH AND BED ALARM ON.
[2025-05-22] MEDS ORDERED: predniSONE 20 MG TAB PO SCH (09:00)
--- NOTE | 2025-05-22 09:24 | NUR ---
PATIENT IN BED AT THIS TIME. SAPPHIRE STYLUS GRINDER CHARTED VITALS AND I&O'S. CALL LIGHT WITHIN REACH, NO FURTHER NEEDS AT THIS TIME.
--- NOTE | 2025-05-22 09:40 | NUR ---
HOME HEALTH ORDER FAXED TO [facility].
--- NOTE | 2025-05-22 09:54 | NUR ---
DR NOT NOTIFIED OF ELEVATED MEWS SCORE BECAUSE IS ALREADY AWARE.
--- NOTE | 2025-05-22 10:53 | NUR ---
PT RESTING IN BED WITH EYES CLOSED AND RESPIRATIONS EVEN AND UNLABORED. ALSO IN ROOM WITH PATIENT AT THIS TIME. CALL LIGHT WITHIN REACH.
--- NOTE | 2025-05-22 11:45 | NUR ---
PATIENT IN BED AT THIS TIME. MOE SCHMIDT CHARTED BLOOD SUGAR. CALL LIGHT WITHIN REACH, NO FURTHER NEEDS.
[2025-05-22] MEDS ORDERED: TOPROL XL50 MG PO (11:59)
[2025-05-22] MEDS ORDERED: COLCRYS0.6 MG PO (11:59)
[2025-05-22] MEDS ORDERED: PREDNISONE20 MG PO (12:03)
--- NOTE | 2025-05-22 12:05 | NUR ---
PT AND HIS VOICED QUESTIONS REGARDING BLOOD GLUCOSE LEVELS. DISCUSSED BLOOD GLUCOSE TARGET LEVELS WITH PT AND AND ALSO PROVIDED THEM WITH THE DIABETES CARE BOOK. PT AND STATED UNDERSTANDING AND ALSO THAT THEY WOULD CONTINUE TO READ THE BOOK GIVEN TO THEM AT HOME.
== END 2025-05-22 13:29 | disposition home or self-care (01) | DRG 871 ==
LOC: ED 10:45 → MS 13:11
PROVIDERS: Emergency Medicine; Student in an Organized Health Care Education/Training Program; ADMIT Family Medicine; ATTEND Family Medicine
DX: A41.9 Sepsis, unspecified organism (principal); J18.9 Pneumonia, unspecified organism; J96.21 Acute and chronic respiratory failure with hypoxia; J44.1 Chronic obstructive pulmonary disease with (acute) exacerbation; J44.0 Chronic obstructive pulmonary disease with (acute) lower respiratory infection; I31.9 Disease of pericardium, unspecified; J90 Pleural effusion, not elsewhere classified; I10 Essential (primary) hypertension; M10.9 Gout, unspecified; E78.5 Hyperlipidemia, unspecified; N40.0 Benign prostatic hyperplasia without lower urinary tract symptoms; K80.20 Calculus of gallbladder without cholecystitis without obstruction; F39 Unspecified mood [affective] disorder; K21.9 Gastro-esophageal reflux disease without esophagitis; E11.65 Type 2 diabetes mellitus with hyperglycemia; T38.0X5A Adverse effect of glucocorticoids and synthetic analogues, initial encounter; J43.9 Emphysema, unspecified; Z87.891 Personal history of nicotine dependence; Z79.84 Long term (current) use of oral hypoglycemic drugs; Z79.82 Long term (current) use of aspirin; Z79.51 Long term (current) use of inhaled steroids; Z79.899 Other long term (current) drug therapy; Z79.52 Long term (current) use of systemic steroids; Z88.1 Allergy status to other antibiotic agents; Z88.6 Allergy status to analgesic agent; Z90.89 Acquired absence of other organs; Z82.49 Family history of ischemic heart disease and other diseases of the circulatory system; Z98.890 Other specified postprocedural states
CPT/HCPCS: 36415; 71045; 71046; 71260; 80048; 80053; 83036; 83605; 83735; 84100; 84484; 85025; 87040; 87077; 93005; 93010; 93306; 93970; 94640; 94667; 94668; 94760; 94799; 97116; 97162; 97166; 97530; 97535; A9270; J0456; J0696; J1650; J1815; J1938; J1956; J2919; J3475; J7030; J7060; J7512; J7605; Q9967

== ENCOUNTER 2025-06-10 15:30 | Emergency (ER) | payer MEDICARE, OTHER ==
[~2025-06-10] VITALS: Ht 182.9 cm; Wt 76.7 kg
[~2025-06-10 15:30] MED LIST changes: +AZITHROMYCIN250 MG PO; +COLCRYS0.6 MG PO
[2025-06-10] MEDS ORDERED: ALBUTEROL/IPRATROPIUM 3 ML NEB INH PRN (16:15)
[2025-06-10 16:40] LABS: BASOPHILS 0.3 % (0.2-1.2); EOSINOPHILS 0.9 % (0.8-7.0); LYMPHOCYTES 3.6 % (21.8-53.1); MCH 29.0 PG (25.7-32.2); MCHC 30.9 g/dL (32.3-36.5); MCV 93.8 fL (79.0-92.2); MONOCYTES 5.2 % (5.3-12.2); NEUTROPHILS 88.4 % (34.0-67.9); RBC 3.52 M/uL (4.63-6.08)
[2025-06-10 17:09] LABS: ALT (SGPT) 42.0 U/L (14-59); AST (SGOT) 12.0 U/L (15-37); GLOMERULAR FILTRATION RATE,EST 21.0 mL/min (>60); PROTEIN, TOTAL 5.7 g/dL (6.4-8.2); UREA NITROGEN 57.0 mg/dL (7-18)
[2025-06-10 18:48] LABS: ALT (SGPT) 42.0 U/L (14-59); AST (SGOT) 11.0 U/L (15-37); GLOMERULAR FILTRATION RATE,EST 22.0 mL/min (>60); PROTEIN, TOTAL 5.5 g/dL (6.4-8.2); UREA NITROGEN 57.0 mg/dL (7-18)
--- NOTE | 2025-06-10 18:51 | EKG ---
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
[2025-06-10] MEDS ORDERED: SODIUM ZIRCONIUM CYCLOSILICATE 10 GM PACK PO ONE (19:00)
[2025-06-10 19:32] VITALS: BP 104/71
== END 2025-06-10 19:35 | disposition home or self-care (01) ==
LOC: ED 15:30
PROVIDERS: Emergency Medicine
DX: R19.7 Diarrhea, unspecified (principal); J44.9 Chronic obstructive pulmonary disease, unspecified; J43.9 Emphysema, unspecified; E11.9 Type 2 diabetes mellitus without complications; Z79.82 Long term (current) use of aspirin; Z79.51 Long term (current) use of inhaled steroids; Z79.899 Other long term (current) drug therapy; Z79.84 Long term (current) use of oral hypoglycemic drugs; Z79.52 Long term (current) use of systemic steroids; Z88.0 Allergy status to penicillin; Z88.8 Allergy status to other drugs, medicaments and biological substances; Z87.891 Personal history of nicotine dependence
CPT/HCPCS: 36415; 71045; 80053; 83735; 84484; 85025; 87045; 87046; 87338; 93005; 93010; 94640; 99285-25